=== PATIENT | female | born 1930 | race Caucasian/White ===

== ENCOUNTER 2017-08-10 01:14 | Emergency (ER) | payer OTHER, BC ==
[2017-08-10 01:38] VITALS: BP 210/67; PULSE 68; TEMP 98.2; BMI 28.3
--- NOTE | 2017-08-10 02:10 | PDOC ---
History of Present Illness - General History Source: Patient Exam Limitations: No Limitations - History of Present Illness Initial Comments: 08/10/17 03:17 Patient is an 86 year old female with a significant past medical history of HTN , Diabetes, non compliant with medications, who presents to the ED with complaints right hand weakness that began this afternoon. Patient reports experiencing an episode in ability to move her right hand while at home that lasted a few moments. Patient states she was at home when she went to grab an item when she noticed she was unable to move her right hand. She reports experiencing an episode of dizziness and lightheadedness after her episode of weakness prompting her son to take her to the ED for further evaluation. As per patient's son, patient has recently become non compliant with medication and stopped seeing her PCP. Denies chest pain, Sob. Denies nausea, vomiting. Denies headache, change in vision. Denies contact with sick individuals, out of state travelling. Denies any other symptoms. Allergies: None Social history: No smoking. No alcohol. No illicit drugs. Surgical history: None PMD: Not on staff. <Murali Tony - Last Filed: 08/10/17 03:17> <Archana Thomas - Last Filed: 08/10/17 04:46> - General Chief Complaint: Lightheaded Stated Complaint: DIZZINESS Past History <Murali Tony - Last Filed: 08/10/17 03:17> - Past Medical History Diabetes: Yes (type 2) HTN: Yes (recently dx started meds 09/21/14) - Suicide/Smoking/Psychosocial Hx Smoking History: Never smoked Have you smoked in the past 12 months: No Information on smoking cessation initiated: No Hx Alcohol Use: No Drug/Substance Use Hx: No Substance Use Type: None <Archana Thomas - Last Filed: 08/10/17 04:46> - Past Medical History Allergies/Adverse Reactions: Allergies Allergy/AdvReac Type Severity Reaction Status Date / Time No Known Allergies Allergy Verified 08/10/17 01:40 Home Medications: Ambulatory Orders Metformin HCl [Glucophage] 500 mg PO ONCE #30 tablet 08/10/17 Review of Systems - Review of Systems Able to Perform ROS?: Yes Comments:: 08/10/17 03:17 GENERAL/CONSTITUTIONAL: No fever or chills. No weakness. HEAD, EYES, EARS, NOSE AND THROAT: No change in vision. No ear pain or discharge. No sore throat. CARDIOVASCULAR: No chest pain or shortness of breath. RESPIRATORY: No cough, wheezing, or hemoptysis. GASTROINTESTINAL: No nausea, vomiting, diarrhea or constipation. GENITOURINARY: No dysuria, frequency, or change in urination. MUSCULOSKELETAL: +Right hand weakness. No joint or muscle swelling or pain. No neck or back pain. SKIN: No rash NEUROLOGIC: No headache, vertigo, loss of consciousness, or change in strength/ sensation. ENDOCRINE: No increased thirst. No abnormal weight change. HEMATOLOGIC/LYMPHATIC: No anemia, easy bleeding, or history of blood clots. ALLERGIC/IMMUNOLOGIC: No hives or skin allergy. All Other Systems: Reviewed and Negative <Murali Tony - Last Filed: 08/10/17 03:17> *Physical Exam - Vital Signs Last Vital Signs Temp Pulse Resp BP Pulse Ox 98.2 F 68 16 210/67 100 08/10/17 01:36 08/10/17 01:36 08/10/17 01:36 08/10/17 01:36 08/10/17 01:36 - Physical Exam Comments: 08/10/17 03:17 GENERAL: Awake, alert, and fully oriented, in no acute distress HEAD: No signs of trauma EYES: PERRLA, EOMI, sclera anicteric, conjunctiva clear ENT: Auricles normal inspection, hearing grossly normal, nares patent, oropharynx clear without exudates. Moist mucosa NECK: Normal ROM, supple, no lymphadenopathy, JVD, or masses LUNGS: Breath sounds equal, clear to auscultation bilaterally. No wheezes, and no crackles HEART: Regular rate and rhythm, normal S1 and S2, no murmurs, rubs or gallops ABDOMEN: Soft, nontender, normoactive bowel sounds. No guarding, no rebound. No masses EXTREMITIES: Normal range of motion, no edema. No clubbing or cyanosis. No cords, erythema, or tenderness NEUROLOGICAL: Cranial nerves II through XII grossly intact. Normal speech, normal gait SKIN: Warm, Dry, normal turgor, no rashes or lesions noted. <Murali Tony - Last Filed: 08/10/17 03:17> - Vital Signs Last Vital Signs Temp Pulse Resp BP Pulse Ox 98.2 F 68 16 210/67 100 08/10/17 01:36 08/10/17 01:36 08/10/17 01:36 08/10/17 01:36 08/10/17 01:36 <Archana Thomas - Last Filed: 08/10/17 04:46> ED Treatment Course - LABORATORY CBC & Chemistry Diagram: 08/10/17 02:13 08/10/17 02:34 - ADDITIONAL ORDERS Additional order review: Laboratory Results 08/10/17 02:34 PT with INR 11.90 H INR 1.05 08/10/17 02:13 RBC 5.05 MCV 80.6 MCHC 33.0 RDW 13.6 MPV 8.7 Neutrophils % 59.1 Lymphocytes % 28.3 Monocytes % 8.0 Eosinophils % 3.8 Basophils % 0.8 - Medications Given in the ED: ED Medications Discontinued Medications Generic Name Dose Route Start Last Admin Trade Name Freq PRN Reason Stop Dose Admin Valsartan 80 mg 08/10/17 02:12 08/10/17 02:42 Diovan - PO 08/10/17 02:13 80 mg ONCE ONE Administration <Murali Tony - Last Filed: 08/10/17 03:17> - LABORATORY CBC & Chemistry Diagram: 08/10/17 02:13 08/10/17 02:34 <Archana Thomas - Last Filed: 08/10/17 04:46> Medical Decision Making - Medical Decision Making 08/10/17 04:44 PT IS REFUSING TO STAY. SHE FEELS BETTER AND HER BP IS DOWN AND HER HEAD CT HAS NO ACUTE FINDINGS. LABS ARE NORMAL AND SHE WILL BE DISCHARGED AND REFERRED TO PMD'S: [facility]. PT WAS ALSO PRESCRIBED DIOVAN AND GLUCOPHAGE. SHE AND HER SON HAVE BEEN ASKED TO ELECTRIC BLANKET P[employer]ER THE MEDS. <Archana Thomas - Last Filed: 08/10/17 04:46> *DC/Admit/Observation/Transfer - Attestations Scribe Attestion: 08/10/17 03:17 Documentation prepared by Murali Tony, acting as medical physicist for Archana Thomas MD/. <Murali Tony - Last Filed: 08/10/17 03:17> - Discharge Dispostion Admit: No <Archana Thomas - Last Filed: 08/10/17 04:46> Diagnosis at time of Disposition: Hypertensive urgency, Hand numbness - Discharge Dispostion Disposition: HOME Condition at time of disposition: Improved - Prescriptions Prescriptions: Metformin HCl [Glucophage] 500 mg PO ONCE #30 tablet - Referrals Referrals: Tyshawn Santos MD [Staff Physician] - Lima Santos [Staff Physician] - Woody Arias MD [Staff Physician] - - Patient Instructions Printed Discharge Instructions: Malignant Hypertension, DI for Numbness/ tingling
[2017-08-10] MEDS ORDERED: VALSARTAN 80 MG TABLET (UD) PO ONE (02:12)
[2017-08-10] MEDS ORDERED: VALSARTAN 80 MG TABLET (UD) ONE (02:40)
[2017-08-10 02:41] LABS: BASO % 0.8 % (0-2.0); EOS % 3.8 % (0-4.5); HEMATOCRIT 40.7 % (32.4-45.2); HEMOGLOBIN 13.4 GM/dL (10.7-15.3); LYMPH % 28.3 % (8-40); MCH 26.6 pg (25.7-33.7); MEAN CELL VOLUME 80.6 fl (80-96); MEAN PLT VOLUME 8.7 fl (7.5-11.1); NEUT % 59.1 % (42.8-82.8); PLATELET COUNT 216 K/MM3 (134-434); RBC 5.05 M/mm3 (3.60-5.2); RDW 13.6 % (11.6-15.6); WHITE BLOOD COUNT 8.4 K/mm3 (4.0-10.0)
[2017-08-10 03:06] LABS: INR 1.05 (0.82-1.09); PROTHROMBIN TIME (PATIENT) 11.9 SEC (9.98-11.88)
[2017-08-10 03:17] LABS: ALBUMIN 3.8 g/dl (3.4-5.0); ANION GAP 10 (8-16); BILIRUBIN,TOTAL 0.6 mg/dL (0.2-1.0); BLOOD UREA NITROGEN 10 mg/dL (7-18); CALCIUM 9.5 mg/dL (8.5-10.1); CHLORIDE 110 mmol/L (98-107); CO2 25 mmol/L (21-32); CREATININE 0.9 mg/dL (0.55-1.02); GLUCOSE,RANDOM 198 mg/dL (74-106); SGPT/ALT 21 U/L (12-78); SODIUM 145 mmol/L (136-145); TOT PROT 7.3 g/dl (6.4-8.2)
[2017-08-10 03:19] LABS: ALK PHOS 67 U/L (45-117)
[2017-08-10 03:25] LABS: POTASSIUM 4.5 mmol/L (3.5-5.1); SGOT/AST 17 U/L (15-37)
--- NOTE | 2017-08-10 11:39 | EKG ---
Test Reason : Blood Pressure : / mmHG Vent. Rate : 067 BPM Atrial Rate : 067 BPM P-R Int : 144 ms QRS Dur : 106 ms QT Int : 418 ms P-R-T Axes : 061 -49 000 degrees QTc Int : 441 ms POOR DATA QUALITY, INTERPRETATION MAY BE ADVERSELY AFFECTED NORMAL SINUS RHYTHM INCOMPLETE RIGHT BUNDLE BRANCH BLOCK LEFT ANTERIOR FASCICULAR BLOCK MODERATE VOLTAGE CRITERIA FOR LVH, MAY BE NORMAL VARIANT NONSPECIFIC ST AND T WAVE ABNORMALITY ABNORMAL ECG WHEN COMPARED WITH ECG OF 19-APR-2016 13:17, NONSPECIFIC T WAVE ABNORMALITY NOW EVIDENT IN LATERAL LEADS Confirmed by MD WADE, TIM ([id number]) on 08/10/2017 11:39:12 AM Referred By: Confirmed By:TIM OLVERA MD
== END 2017-08-10 04:44 | disposition home or self-care (01) ==
LOC: JER 01:14
DX: I16.0 Hypertensive urgency (principal); E11.9 Type 2 diabetes mellitus without complications; Z79.84 Long term (current) use of oral hypoglycemic drugs; Z91.14 Patient's other noncompliance with medication regimen
CPT/HCPCS: 36415; 70450-TC; 80053; 82550; 84484; 85025; 85610; 93005; 93010; 99281-25

== ENCOUNTER 2018-09-27 07:18 | Inpatient (IN) | payer OTHER, BC ==
[2018-09-27 07:33] VITALS: BMI 26.5
--- NOTE | 2018-09-27 07:55 | PDOC ---
History of Present Illness - General Chief Complaint: Weakness Stated Complaint: WEAKNESS Time Seen by Provider: 09/27/18 07:32 - History of Present Illness Initial Comments: 09/27/18 07:50 The patient is an 87 year old female with a significant reported PMH of HTN, NIDDM who presents to our ED c/o acute onset of weakness and lightheadedness. States she woke up around 7 a.m. and felt generally weak. Patient got out of bed and got dressed and states her legs felt rubbery and she felt lightheaded falling on the her L side. Denies any head trauma or LOC. Was able to pull herself onto a chair and call her daughter who encouraged her to call 911. Currently c/o of weak lower extremities. States she had a similar episode previously (cannot recall when) and at that time the symptoms resolved within 20 minutes. States she stopped taking all of her medications 6 months previous because she is depressed. Denies any active suicidal ideations or plans, no firearms in the home. The patient denies headache, blurry vision, numbness/tingling, chest pain, shortness of breath. NKDA Surgical: denies Social: denies toxic habits PMD: Dr. Arias As per EMR patient evaluated in our ED in 2018 for R hand weakness as well as dizziness and lightheadedness. At that time symptoms resolved and patient was discharged home. Past History - Past Medical History Allergies/Adverse Reactions: Allergies Allergy/AdvReac Type Severity Reaction Status Date / Time No Known Allergies Allergy Verified 09/27/18 07:33 Home Medications: Ambulatory Orders Amlodipine Besylate 10 mg PO DAILY 09/27/18 Metformin HCl [Glucophage] 500 mg PO DAILY 09/27/18 Olmesartan Medoxomil 40 mg PO DAILY 09/27/18 Sertraline HCl 25 mg PO DAILY 09/27/18 COPD: No Diabetes: Yes (type 2) HTN: Yes (recently dx started meds 09/21/14) Other medical history: HUSLIA - Suicide/Smoking/Psychosocial Hx Smoking History: Never smoked Have you smoked in the past 12 months: No Hx Alcohol Use: No Drug/Substance Use Hx: No Substance Use Type: None Review of Systems - Review of Systems Constitutional: Yes: Weakness. No: Chills, Fever HEENTM: No: Recent change in vision Respiratory: No: Cough, Shortness of Breath, Stridor, Wheezing Cardiac (ROS): Yes: Lightheadedness. No: Chest Pain, Syncope ABD/GI: No: Constipated, Diarrhea, Nausea, Vomiting : No: Burning, Dysuria *Physical Exam - Vital Signs Last Vital Signs Temp Pulse Resp BP Pulse Ox 97.9 F 66 18 195/64 H 100 09/27/18 07:29 09/27/18 07:29 09/27/18 07:29 09/27/18 07:29 09/27/18 07:29 - Physical Exam Comments: 09/27/18 08:59 VS in triage reviewed Awake, alert, disheveled, smells of urine Pelvis stable, moves all 4 extremities S1,S2 CLTA B/L 2+ DP pulses B/L Moderate Sedation - Procedure Monitoring Vital Signs: Procedure Monitoring Vital Signs Temperature 97.9 F 09/27/18 07:29 Pulse Rate 66 09/27/18 07:29 Respiratory Rate 18 09/27/18 07:29 Blood Pressure 195/64 H 09/27/18 07:29 O2 Sat by Pulse Oximetry (%) 100 09/27/18 07:29 Heart Score/ECG Review - ECG Impressions Comment:: 09/27/18 09:27 EKG shows NSR HR 60, LAD with RBB, w/c EKG dated ED Treatment Course - LABORATORY CBC & Chemistry Diagram: 09/27/18 08:11 09/27/18 08:11 Medical Decision Making - Medical Decision Making 09/27/18 07:55 87 year old female with acute onset of weakness s/p fall. Hypertensive (195/64 ) @ triage. Repeat BP 200/68 @ bedside. Broad differential including cardiac, infectious, neurologic. Will obtain Head CT, EKG, Troponin, FS as well as basic labs, Mg. Will closely monitor BP -medication if remains hypertensive Reassess. 09/27/18 08:58 My read of Head CT shows no ischemia/bleed 09/27/18 09:20 EKG shows no acute ischemic changes from EKG dated 08/10/17 as documented in EKG section of EMR 09/27/18 09:26 Patient reassessed @ bedside Remains hypertensive (200's/70's) Continues to c/o weakness, states she feels alone, and no one cares for her; wishes to be , continues to deny active suicidal plans 09/27/18 10:30 CBC unremarkable 09/27/18 10:37 Radiology read - CT negative 09/27/18 11:02 Called lab - unable to locate CMP; will redraw 09/27/18 11:06 Called received from Lab, CMP located; 09/27/18 11:15 Patient ambulatory w/attending physician 09/27/18 11:37 BS 305 (likely 2/2 to DM medication non-adherence) CMP unremarkable Troponin pending Clonidine patch for 7 days - strict counseling for importance of follow-up with PMD for HTN control 09/27/18 12:23 Patient requesting D/C - ambulatory without assistance around unit Call placed to laboratory - UA results pending 09/27/18 12:25 UA shows 2+ leukocyte esterase, 1+ blood, 32 WBC, will give Ceftriaxone 09/27/18 12:36 Troponin indeterminate Patient requires admission for serial troponin to r/o ischemic demand vs ACS. Attending discussed case w/hospitalist medicine service; counseled patient and family on plan of care Clinical Impression: Troponin leak; UTI *DC/Admit/Observation/Transfer Diagnosis at time of Disposition: Weakness - Discharge Dispostion Disposition: HOME Condition at time of disposition: Good Decision to Admit order: No - Referrals - Patient Instructions - Post Discharge Activity
[2018-09-27 09:14] LABS: BASO % 0.8 % (0-2.0); EOS % 2.9 % (0-4.5); HEMATOCRIT 38.9 % (32.4-45.2); HEMOGLOBIN 13.5 GM/dL (10.7-15.3); LYMPH % 26.3 % (8-40); MCH 27.6 pg (25.7-33.7); MCHC 34.6 g/dl (32.0-36.0); MEAN CELL VOLUME 79.9 fl (80-96); MEAN PLT VOLUME 8.7 fl (7.5-11.1); MONO % 7.2 % (3.8-10.2); NEUT % 62.8 % (42.8-82.8); PLATELET COUNT 178 K/MM3 (134-434); RBC 4.87 M/mm3 (3.60-5.2); RDW 13.4 % (11.6-15.6); WHITE BLOOD COUNT 6.4 K/mm3 (4.0-10.0)
--- NOTE | 2018-09-27 10:10 | PDOC ---
Attending Attestation - HPI HPI: 09/27/18 10:56 The patient is a 87 year old female with a past medical history of HTN and diabetes here today for evaluation of lightheadedness. The patient reports that for the past 2 days every time she stands up she feels lightheaded and feels scared that she will fall. She also reports not taking her medication and not going to her PCP in the past 6 months due to depression. Patient denies headache. Denies fever, chills. Denies chest pain, shortness of breath. Denies nausea, vomiting, diarrhea, abdominal pain. Allergies: NKA PCP: Woody Arias - Physicial Exam PE: 09/27/18 10:56 Vitals: Triage vital signs reviewed General Appearance: No acute distress, well nourished, well developed Head: Atraumatic Chest Wall: Nontender Cardiac: Regular rate and rhythm, no murmurs, no rubs, no gallops Lungs: Clear to auscultation bilateral, good air movement bilaterally Abdomen: Soft, nondistended, normal bowel sounds, nontender to palpation Extremities: Full range of motion to all extremities, no cyanosis, clubbing, or edema Skin: Warm and dry, no rashes or lesions, no rash, no petechiae Neuro: +gait unsteady. AOX3; Cranial Nerves 2-12 grossly intact, Strength intact to all extremities, Sensation intact to all extremities Psych: Normal mood, normal affect - Medical Decision Making 09/27/18 10:56 Documentation prepared by REFUGIO Humphries, acting as electromedical equipment repairer for Deepak Laguna MD. The patient is a 87 year old female with a past medical history of HTN and diabetes here today for evaluation of lightheadedness. <Bud Nieves - Last Filed: 09/27/18 10:55> - Resident Resident Name: Abigail Izaguirre - ED Attending Attestation I have performed the following: I have examined & evaluated the patient, The case was reviewed & discussed with the resident, I agree w/resident's findings & plan, Exceptions are as noted - Medical Decision Making 87 years old with positional lightheadedness this morning Head CT within normal limits laboratory analysis notable for hyperglycemia which is understandable given the patient is been noncompliant with her medications as well as a troponin of indeterminant value Given patient's age noncompliance of medication we'll admit to hospital for telemetry monitoring, serial troponins and further management. <Deepak Laguna - Last Filed: 09/27/18 14:34>
[2018-09-27] MEDS ORDERED: cloNIDine-TTS 0.2 MG/24 HOURS PATCH.TDWK TD STA (10:39)
--- NOTE | 2018-09-27 11:01 | EKG ---
Test Reason : Blood Pressure : / mmHG Vent. Rate : 060 BPM Atrial Rate : 060 BPM P-R Int : 146 ms QRS Dur : 108 ms QT Int : 434 ms P-R-T Axes : 050 -40 -07 degrees QTc Int : 434 ms NORMAL SINUS RHYTHM POSSIBLE LEFT ATRIAL ENLARGEMENT LEFT AXIS DEVIATION PULMONARY DISEASE PATTERN INCOMPLETE RIGHT BUNDLE BRANCH BLOCK LEFT VENTRICULAR HYPERTROPHY WITH REPOLARIZATION ABNORMALITY ABNORMAL ECG WHEN COMPARED WITH ECG OF 10-AUG-2017 01:43, INVERTED T WAVES HAVE REPLACED NONSPECIFIC T WAVE ABNORMALITY IN LATERAL LEADS Confirmed by MD CARLEY, ERMELINDA ([id number]) on 09/27/2018 11:01:25 AM Referred By: Confirmed By:ERMELINDA HOWE MD
[2018-09-27 11:15] LABS: ALBUMIN 3.5 g/dl (3.4-5.0); ALK PHOS 83 U/L (45-117); ANION GAP 8 MMOL/L (8-16); BILIRUBIN,TOTAL 0.7 mg/dL (0.2-1); BLOOD UREA NITROGEN 10 mg/dL (7-18); CALCIUM 8.7 mg/dL (8.5-10.1); CHLORIDE 106 mmol/L (98-107); CO2 26 mmol/L (21-32); MAGNESIUM 1.8 mg/dL (1.8-2.4); POTASSIUM 3.7 mmol/L (3.5-5.1); SGOT/AST 11 U/L (15-37); SGPT/ALT 19 U/L (13-61); SODIUM 140 mmol/L (136-145)
[2018-09-27 11:26] LABS: GLUCOSE,RANDOM 305 mg/dL (74-106)
[2018-09-27 11:37] LABS: URINE APPEARANCE CLOUDY; URINE BILIRUBIN NEGATIVE (<2.0 mg/dL); URINE COLOR YELLOW; URINE GLUCOSE (UA) 3+ (NEGATIVE); URINE KETONE NEGATIVE (NEGATIVE); URINE LEUK ESTERASE 2+ (NEGATIVE); URINE NITRITE POSITIVE (NEGATIVE); URINE PROTEIN 1+ (NEGATIVE); URINE UROBILINOGEN NEGATIVE mg/dL (0.2-1.0)
[2018-09-27] MEDS ORDERED: ASPIRIN 81 MG CHEWABLE TABLETS PO ONE (12:15)
[2018-09-27 12:16] LABS: EPI CELLS FEW /HPF (FEW); URINE BACTERIA FEW /hpf (NONE SEEN); YEAST FEW
[2018-09-27] MEDS ORDERED: LORazepam 2 MG/ML SDV VIAL ONE (12:17)
[2018-09-27] MEDS ORDERED: ASPIRIN 81 MG CHEWABLE TABLETS ONE (12:23)
[2018-09-27] MEDS ORDERED: amLODIPine BESYLATE 5 MG TABLET (FP) PO ONE ×2 (12:31→14:02)
[2018-09-27] MEDS ORDERED: amLODIPine BESYLATE 5 MG TABLET (FP) ONE (12:35)
--- NOTE | 2018-09-27 13:58 | HP ---
CHIEF COMPLAINT: dizziness, fall PCP: Dr. Jaime HISTORY OF PRESENT ILLNESS: 87 yof with PMhx of NIDDM, HTN, diverticulosis, living alone, has been depressed for the last 1 year and stopped all her medications. She has not seen her PCP recently. Today when getting up had severe dizziness and fell on the floor to his side. Denies any head trauma, LOC. She got herself up with support but was feeling weak, so came to the ED. Does endorse long standing h/o positional dizziness. On ROS, states has URI like illness for the last week which is resolving, with runny nose, sore throat, cough with clear sputum and subjective warmth with no fevers. Also reports eating a lot of 'sweets', polyuria, dysuria, urinary frequency. Denies any fevers, chills, abdominal pain. Reports dry mouth and asking for water. Denies any chest pain, palpitations, dyspnea, exertional symptoms. Reports lives alone, has been feeling depressed lately but denies any SI/HI ("I can never do that to my kids" 12 point ROS done, neg except above. 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 [employer] 3 children in 60s, 1 son, 2 daughters Family History: Allergies No Known Allergies Allergy (Verified 09/27/18 07:33) HOME MEDICATIONS: Home Medications Medication Instructions Recorded Amlodipine Besylate 10 mg PO DAILY 09/27/18 Metformin HCl [Glucophage] 500 mg PO DAILY 09/27/18 Olmesartan Medoxomil 40 mg PO DAILY 09/27/18 Sertraline HCl 25 mg PO DAILY 09/27/18 REVIEW OF SYSTEMS CONSTITUTIONAL: Presentgeneralized weakness, Absent: fever, chills, diaphoresis, malaise, loss of appetite, weight change HEENT: Present nasal congestion, Absent: rhinorrhea, throat pain, throat swelling, difficulty swallowing, mouth swelling, ear pain, eye pain, visual changes CARDIOVASCULAR: Present: lightheadedness Absent: chest pain, syncope, palpitations, irregular heart rate, peripheral edema RESPIRATORY: Absent: cough, shortness of breath, dyspnea with exertion, orthopnea, wheezing, stridor, hemoptysis GASTROINTESTINAL: Absent: abdominal pain, abdominal distension, nausea, vomiting, diarrhea, constipation, melena, hematochezia GENITOURINARY: Present: polyuria, dysuria, Absent: hematuria, flank pain, genital pain MUSCULOSKELETAL: Absent: myalgia, arthralgia, joint swelling, back pain, neck pain SKIN: Absent: rash, itching, pallor HEMATOLOGIC/IMMUNOLOGIC: Absent: easy bleeding, easy bruising, lymphadenopathy, frequent infections ENDOCRINE: Absent: unexplained weight gain, unexplained weight loss, heat intolerance, cold intolerance NEUROLOGIC: Absent: headache, focal weakness or paresthesias, dizziness, unsteady gait, seizure, mental status changes, bladder or bowel incontinence PSYCHIATRIC: Present: depression Absent: anxiety, suicidal or homicidal ideation, hallucinations. PHYSICAL EXAMINATION Vital Signs - 24 hr 09/27/18 09/27/18 09/27/18 07:29 09:15 12:00 Temperature 97.9 F 98.1 F Pulse Rate 66 Pulse Rate [ 65 70 Right] Respiratory 18 14 18 Rate Blood Pressure 195/64 H Blood Pressure 202/86 H 140/92 [Right Arm] O2 Sat by Pulse 100 98 98 Oximetry (%) GENERAL: Awake, alert, and fully oriented, in no acute distress. HEAD: Normal with no signs of trauma. EYES: Pupils equal, round and reactive to light, extraocular movements intact, sclera anicteric, conjunctiva clear. No lid lag. EARS, NOSE, THROAT: Ears normal, nares patent, oropharynx clear without exudates. Moist mucous membranes. NECK: Normal range of motion, supple no JVD noted LUNGS: Breath sounds equal, clear to auscultation bilaterally. No wheezes, and no crackles. No accessory muscle use. HEART: Regular rate and rhythm, normal S1 and S2 ABDOMEN: Soft, nontender, not distended, normoactive bowel sounds, no guarding, no rebound, no masses. No CVA tenderness MUSCULOSKELETAL: Normal range of motion at all joints. No bony deformities or tenderness. No CVA tenderness. UPPER EXTREMITIES: 2+ pulses, warm, well-perfused. No cyanosis. No clubbing. No peripheral edema. LOWER EXTREMITIES: 2+ pulses, warm, well-perfused. No calf tenderness. No peripheral edema. NEUROLOGICAL: AAOx3, oriented to person, place, knows is september 2018 but thought date was , facial symmetry, tongue midline, power 5/5, no pronator drift, EOMI, PERRL, Cranial nerves II-XII intact. Normal speech. Normal gait. PSYCHIATRIC: Cooperative. Good eye contact. Appropriate mood and affect. SKIN: Warm, dry, normal turgor, no rashes or lesions noted, normal capillary refill. Laboratory Results - last 24 hr 09/27/18 09/27/18 09/27/18 08:11 08:11 10:57 WBC 6.4 RBC 4.87 Hgb 13.5 Hct 38.9 MCV 79.9 L MCH 27.6 MCHC 34.6 RDW 13.4 Plt Count 178 MPV 8.7 Absolute Neuts (auto) 4.0 Neutrophils % 62.8 Lymphocytes % 26.3 Monocytes % 7.2 Eosinophils % 2.9 Basophils % 0.8 Nucleated RBC % 0 Sodium 140 Potassium 3.7 Chloride 106 Carbon Dioxide 26 Anion Gap 8 BUN 10 Creatinine 1.0 Creat Clearance w eGFR 52.69 Random Glucose 305 H* Calcium 8.7 Magnesium 1.8 Total Bilirubin 0.7 AST 11 L ALT 19 Alkaline Phosphatase 83 Creatine Kinase 41 Troponin I 0.13 H Total Protein 7.0 Albumin 3.5 Urine Color Yellow Urine Appearance Cloudy Urine pH 5.0 Ur Specific [place] 1.016 Urine Protein 1+ H Urine Glucose (UA) 3+ H Urine Ketones Negative Urine Blood 1+ H Urine Nitrite Positive Urine Bilirubin Negative Urine Urobilinogen Negative Ur Leukocyte Esterase 2+ H Urine WBC (Auto) 32 Urine RBC (Auto) 6 Ur Epithelial Cells Few Urine Bacteria Few Urine Yeast Few CT brain results reviewed: 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 -Dizziness, Positional, suspect orthostatic compounded by hypovolumia (From osmotic diuresis from hyperglycemia)/Uncontrolled HTN -Hypertensive urgency, suspect from non compliance -Elevated troponin, suspect demand induced from above rather than ACS -Hyperglycemia, from non compliance -Lower uncomplicated UTI -Depression Plan: Resume home amlodipine/ARB. Hydralazine Prn for SBP .>180. Cardiology consult with Dr. Patel. Reviewed EKG, suggestive of LVH with strain pattern. However, will continue to trend troponin. (discussed with ED RN to send trop). Heparin if significant rise, EKG changes or new clinical concerns. Monitor closely for now. Check 2D echo. Place on ASA. Check lipid panel. Baseline HR 60s, hold off on beta renate. ISS, diabetic diet, check A1c. Ceftriaxone, follow up urine cultures. Gentle hydration overnight. resume sertraline. Psychology consult Dr. Abad [id number] lovenox PT eval. Code status: Full (patient unable to decide currently). Will defer till evaluated for depression. Dispo pending clinical improvement and disposition arrangements Plan discussed with patient, ED RN. Care co-ordinated with ED and cardiology Dr. Patel. Total admit time spent 65 min. Visit type - Emergency Visit Emergency Visit: Yes ED Registration Date: 09/27/18 Care time: The patient presented to the Emergency Department on the above date and was hospitalized for further evaluation of their emergent condition. - New Patient This patient is new to me today: Yes Date on this admission: 09/27/18 - Critical Care Critical Care patient: No
[2018-09-27] MEDS ORDERED: SODIUM CHLORIDE 1,000 ML IV SCH (14:15)
[2018-09-27] MEDS ORDERED: LOSARTAN POTASSIUM 50 MG TABLET (FP) ONE (15:05)
[2018-09-27] MEDS ORDERED: CEFTRIAXONE 1 GM/50 ML BAG ONE (15:05)
[2018-09-27] MEDS ORDERED: SERTRALINE HCL 50 MG TABLET (FP) ONE (15:05)
[2018-09-27] MEDS: CEFTRIAXONE 1 GM in DEXTROSE 5%-WATER - 50 ML IVPB SCH (15:07)
[2018-09-27] MEDS: LOSARTAN POTASSIUM 50 MG TABLET (FP) PO SCH (15:07)
[2018-09-27] MEDS: SERTRALINE HCL 25 MG TABLET (FP) PO SCH (15:07)
[2018-09-27 15:43] LABS: INR 1.13 (0.83-1.09); PROTHROMBIN TIME (PATIENT) 13.4 SEC (9.7-13.0)
[2018-09-27] MEDS: INSULIN SLIDING SCALE (NOVOLOG) 1 VIAL SQ SCH ×2 (16:48→21:45)
[2018-09-27] MEDS ORDERED: INSULIN (NOVOLOG) ASPART 100 UNITS/ML 10ML VIAL ONE (16:52)
[2018-09-28] MEDS: hydrALAZINE HCL 20 MG/ML VIAL IVPUSH PRN ×2 (05:23→18:11)
[2018-09-28] MEDS: INSULIN SLIDING SCALE (NOVOLOG) 1 VIAL SQ SCH ×4 (06:11→21:12)
[2018-09-28 07:00] LABS: BASO % 0.8 % (0-2.0); EOS % 3.3 % (0-4.5); HEMATOCRIT 38.1 % (32.4-45.2); HEMOGLOBIN 13.3 GM/dL (10.7-15.3); LYMPH % 26.9 % (8-40); MCH 28.1 pg (25.7-33.7); MCHC 34.9 g/dl (32.0-36.0); MEAN CELL VOLUME 80.7 fl (80-96); MEAN PLT VOLUME 8.7 fl (7.5-11.1); MONO % 7.1 % (3.8-10.2); NEUT % 61.9 % (42.8-82.8); PLATELET COUNT 170 K/MM3 (134-434); RBC 4.72 M/mm3 (3.60-5.2); RDW 13.6 % (11.6-15.6); WHITE BLOOD COUNT 6.7 K/mm3 (4.0-10.0)
[2018-09-28 07:28] LABS: ALBUMIN 3.2 g/dl (3.4-5.0); ALK PHOS 68 U/L (45-117); ANION GAP 10 MMOL/L (8-16); BILIRUBIN,TOTAL 0.8 mg/dL (0.2-1); BLOOD UREA NITROGEN 13 mg/dL (7-18); CALCIUM 8.6 mg/dL (8.5-10.1); CHLORIDE 109 mmol/L (98-107); CHOLESTEROL 191 mg/dL (50-200); CO2 22 mmol/L (21-32); CREATININE 0.9 mg/dL (0.55-1.3); GLUCOSE,RANDOM 247 mg/dL (74-106); HDL CHOLESTEROL 61 mg/dL (40-60); MAGNESIUM 1.9 mg/dL (1.8-2.4); PHOSPHOROUS 2.6 mg/dL (2.5-4.9); POTASSIUM 3.6 mmol/L (3.5-5.1); SGOT/AST 14 U/L (15-37); SGPT/ALT 16 U/L (13-61); SODIUM 140 mmol/L (136-145); TOT PROT 6.4 g/dl (6.4-8.2); TRIGLYCERIDES 119 mg/dL (0-150)
--- NOTE | 2018-09-28 08:43 | PN ---
Teaching Attending Note Name of Resident: Suzette Acosta ATTENDING PHYSICIAN STATEMENT I saw and evaluated the patient. I reviewed the resident's note and discussed the case with the resident. I agree with the resident's findings and plan as documented with exceptions below. SUBJECTIVE: Patient seen and examined. Anxious and wanting to leave. No chest pain, dizziness, dyspnea, headache or new concerns. Denies any urinary symptoms. No fevers or chills. OBJECTIVE: Vital Signs Period Temp Pulse Resp BP Sys/Powers Pulse Ox Last 24 Hr 97.1 F-98.5 F 65-82 14-20 138-203/67-92 97-100 Intake & Output 09/25/18 09/26/18 09/27/18 09/28/18 23:59 23:59 23:59 23:59 Intake Total 250 Balance 250 Weight 150 lb 9.6 oz general: sitting in bed in no acute distress Chest: CTAB, no rales or wheezing Abdomen:soft NT, ND, no CVA or suprapubic tenderness extremities: no edema Home Medications Medication Instructions Recorded Amlodipine Besylate 10 mg PO DAILY 09/27/18 Metformin HCl [Glucophage] 500 mg PO DAILY 09/27/18 Olmesartan Medoxomil 40 mg PO DAILY 09/27/18 Sertraline HCl 25 mg PO DAILY 09/27/18 Active Medications Amlodipine Besylate (Norvasc -) 10 mg PO DAILY REPLACED BY [facility] Aspirin (Ecotrin -) 81 mg PO DAILY REPLACED BY [facility] Enoxaparin Sodium (Lovenox -) 40 mg SQ DAILY REPLACED BY [facility] Hydralazine HCl (Apresoline Injection -) 10 mg IVPUSH Q6H PRN PRN Reason: HYPERTENSION Last Admin: 09/28/18 05:23 Dose: 10 mg Ceftriaxone Sodium 1 gm/ (Dextrose) 50 mls @ 100 mls/hr IVPB DAILY REPLACED BY [facility]; Protocol Last Admin: 09/27/18 15:07 Dose: 100 mls/hr Sodium Chloride (Normal Saline -) 1,000 mls @ 50 mls/hr IV ASDIR [facility] Stop: 09/28/18 14:07 Last Admin: 09/27/18 15:07 Dose: 50 mls/hr Insulin Aspart (Novolog Vial Sliding Scale -) 0 vial SQ ACHS [facility]; Protocol Last Admin: 09/28/18 06:11 Dose: Not Given Losartan Potassium (Cozaar -) 100 mg PO DAILY REPLACED BY [facility] Last Admin: 09/27/18 15:07 Dose: 100 mg Sertraline HCl (Zoloft -) 25 mg PO DAILY REPLACED BY [facility] Last Admin: 09/27/18 15:07 Dose: 25 mg Laboratory Results - last 24 hr 09/27/18 09/27/18 09/27/18 08:11 08:11 10:57 WBC 6.4 RBC 4.87 Hgb 13.5 Hct 38.9 MCV 79.9 L MCH 27.6 MCHC 34.6 RDW 13.4 Plt Count 178 MPV 8.7 Absolute Neuts (auto) 4.0 Neutrophils % 62.8 Lymphocytes % 26.3 Monocytes % 7.2 Eosinophils % 2.9 Basophils % 0.8 Nucleated RBC % 0 PT with INR INR Sodium 140 Potassium 3.7 Chloride 106 Carbon Dioxide 26 Anion Gap 8 BUN 10 Creatinine 1.0 Creat Clearance w eGFR 52.69 POC Glucometer Random Glucose 305 H* Hemoglobin A1c % Calcium 8.7 Phosphorus Magnesium 1.8 Total Bilirubin 0.7 AST 11 L ALT 19 Alkaline Phosphatase 83 Creatine Kinase 41 Troponin I 0.13 H Total Protein 7.0 Albumin 3.5 Triglycerides Cholesterol Total LDL Cholesterol HDL Cholesterol Urine Color Yellow Urine Appearance Cloudy Urine pH 5.0 Ur Specific [place] 1.016 Urine Protein 1+ H Urine Glucose (UA) 3+ H Urine Ketones Negative Urine Blood 1+ H Urine Nitrite Positive Urine Bilirubin Negative Urine Urobilinogen Negative Ur Leukocyte Esterase 2+ H Urine WBC (Auto) 32 Urine RBC (Auto) 6 Ur Epithelial Cells Few Urine Bacteria Few Urine Yeast Few 09/27/18 09/27/18 09/27/18 15:00 15:00 16:44 WBC RBC Hgb Hct MCV MCH MCHC RDW Plt Count MPV Absolute Neuts (auto) Neutrophils % Lymphocytes % Monocytes % Eosinophils % Basophils % Nucleated RBC % PT with INR 13.40 H INR 1.13 H Sodium Potassium Chloride Carbon Dioxide Anion Gap BUN Creatinine Creat Clearance w eGFR POC Glucometer 255 Random Glucose Hemoglobin A1c % Calcium Phosphorus Magnesium Total Bilirubin AST ALT Alkaline Phosphatase Creatine Kinase 41 Troponin I 0.13 H Total Protein Albumin Triglycerides Cholesterol Total LDL Cholesterol HDL Cholesterol Urine Color Urine Appearance Urine pH Ur Specific [place] Urine Protein Urine Glucose (UA) Urine Ketones Urine Blood Urine Nitrite Urine Bilirubin Urine Urobilinogen Ur Leukocyte Esterase Urine WBC (Auto) Urine RBC (Auto) Ur Epithelial Cells Urine Bacteria Urine Yeast 09/27/18 09/27/18 09/28/18 20:15 21:39 02:00 WBC RBC Hgb Hct MCV MCH MCHC RDW Plt Count MPV Absolute Neuts (auto) Neutrophils % Lymphocytes % Monocytes % Eosinophils % Basophils % Nucleated RBC % PT with INR INR Sodium Potassium Chloride Carbon Dioxide Anion Gap BUN Creatinine Creat Clearance w eGFR POC Glucometer 241 Random Glucose Hemoglobin A1c % Calcium Phosphorus Magnesium Total Bilirubin AST ALT Alkaline Phosphatase Creatine Kinase 55 Troponin I 0.13 H 0.14 H Total Protein Albumin Triglycerides Cholesterol Total LDL Cholesterol HDL Cholesterol Urine Color Urine Appearance Urine pH Ur Specific [place] Urine Protein Urine Glucose (UA) Urine Ketones Urine Blood Urine Nitrite Urine Bilirubin Urine Urobilinogen Ur Leukocyte Esterase Urine WBC (Auto) Urine RBC (Auto) Ur Epithelial Cells Urine Bacteria Urine Yeast 09/28/18 09/28/18 09/28/18 05:15 06:00 06:00 WBC 6.7 RBC 4.72 Hgb 13.3 Hct 38.1 MCV 80.7 MCH 28.1 MCHC 34.9 RDW 13.6 Plt Count 170 MPV 8.7 Absolute Neuts (auto) 4.2 Neutrophils % 61.9 Lymphocytes % 26.9 Monocytes % 7.1 Eosinophils % 3.3 Basophils % 0.8 Nucleated RBC % 0 PT with INR INR Sodium 140 Potassium 3.6 Chloride 109 H Carbon Dioxide 22 Anion Gap 10 BUN 13 Creatinine 0.9 Creat Clearance w eGFR 59.51 POC Glucometer 208 Random Glucose 247 H Hemoglobin A1c % Calcium 8.6 Phosphorus 2.6 Magnesium 1.9 Total Bilirubin 0.8 AST 14 L ALT 16 Alkaline Phosphatase 68 Creatine Kinase Troponin I 0.14 H Total Protein 6.4 Albumin 3.2 L Triglycerides 119 Cholesterol 191 Total LDL Cholesterol 111 H HDL Cholesterol 61 H Urine Color Urine Appearance Urine pH Ur Specific [place] Urine Protein Urine Glucose (UA) Urine Ketones Urine Blood Urine Nitrite Urine Bilirubin Urine Urobilinogen Ur Leukocyte Esterase Urine WBC (Auto) Urine RBC (Auto) Ur Epithelial Cells Urine Bacteria Urine Yeast 09/28/18 06:00 WBC RBC Hgb Hct MCV MCH MCHC RDW Plt Count MPV Absolute Neuts (auto) Neutrophils % Lymphocytes % Monocytes % Eosinophils % Basophils % Nucleated RBC % PT with INR INR Sodium Potassium Chloride Carbon Dioxide Anion Gap BUN Creatinine Creat Clearance w eGFR POC Glucometer Random Glucose Hemoglobin A1c % 10.6 H Calcium Phosphorus Magnesium Total Bilirubin AST ALT Alkaline Phosphatase Creatine Kinase Troponin I Total Protein Albumin Triglycerides Cholesterol Total LDL Cholesterol HDL Cholesterol Urine Color Urine Appearance Urine pH Ur Specific [place] Urine Protein Urine Glucose (UA) Urine Ketones Urine Blood Urine Nitrite Urine Bilirubin Urine Urobilinogen Ur Leukocyte Esterase Urine WBC (Auto) Urine RBC (Auto) Ur Epithelial Cells Urine Bacteria Urine Yeast CXR results reviewed Telemetry: NSR, occasional HR 100s, no concerning events ASSESSMENT AND PLAN: 87 yof with PMhx of NIDDM, HTN, diverticulosis, depression, not taking her meds for a year admitted with dizzinesss/fall, hypertensive urgency,elevated troponin , hyperglycemia and UTI. -Dizziness, Positional, suspect orthostatic compounded by hypovolumia (From osmotic diuresis from hyperglycemia)/Uncontrolled HTN -Hypertensive urgency, suspect from non compliance -Elevated troponin, suspect demand induced from above rather than ACS -Hyperglycemia, from non compliance -Lower uncomplicated UTI -Depression Plan: BP improved. Continue amlodipine/ARB. Hydralazine Prn for SBP .>180. Baseline HR 60s in the ED, hold off on beta renate. trop flat. Follow up 2D echo and cardiology input Continue ASA.Lipid panel noted. A1c >10, ISS, diabetic diet and education. Ideally should be on insulin but given compliance, follow up and self- administration concerns, will start glimepiride 1 mg daily. resume metformin if no further cardiac intervention planned. Ceftriaxone day 2, follow up urine cultures. D/c IVF. Continue sertraline, psychology input Dr. Abad PT eval [id number] lovenox Dispo planning in 24hours if continues to improve an disposition arranged.
[2018-09-28] MEDS ORDERED: cefTRIAXone SODIUM 1 GM VIAL ONE (08:48)
[2018-09-28] MEDS ORDERED: DEXTROSE 5%-WATER - 50 ML IVPB ONE (08:48)
[2018-09-28] MEDS ORDERED: GLIMEPIRIDE 1 MG TABLET (FP) PO ONE (08:48)
--- NOTE | 2018-09-28 10:21 | CON.CARD ---
Consult Consult Specialty:: cardio - History of Present Illness Chief Complaint: dizzy History of Present Illness: 87 F here with dizziness resulting in fall. Pt came in with dizziness, fell to floor. she reported not being able to feel her legs to dtr after this event had occurred (called her on phone). she denies other neuro sx's. no LOC. denies cp, palpitations, sob admitted non-compliance with meds and no PMD followup for ? 1 yr or more. Found to have BP 190s-200 in ER. And A1c 10 PMH: HTN DM - Past Medical History ...: No - Alcohol/Substance Use Hx Alcohol Use: No - Smoking History Smoking history: Never smoked Have you smoked in the past 12 months: No Home Medications - Allergies Allergies/Adverse Reactions: Allergies Allergy/AdvReac Type Severity Reaction Status Date / Time No Known Allergies Allergy Verified 09/27/18 07:33 - Home Medications Home Medications: Ambulatory Orders Amlodipine Besylate 10 mg PO DAILY 09/27/18 Metformin HCl [Glucophage] 500 mg PO DAILY 09/27/18 Olmesartan Medoxomil 40 mg PO DAILY 09/27/18 Sertraline HCl 25 mg PO DAILY 09/27/18 Family Disease History - Family Disease History Family History: Denies (no known cmp) Review of Systems - Review of Systems Constitutional: denies: Chills, Fever Eyes: denies: Eye Pain HENT: denies: Nasal Congestion Neck: denies: Stiffness Cardiovascular: denies: Palpitations Respiratory: denies: Orthopnea, PND Gastrointestinal: denies: Diarrhea, Rectal Bleeding Genitourinary: denies: Burning, Hematuria Musculoskeletal: denies: Muscle Pain Integumentary: denies: Rash Neurological: denies: Change in Speech, Seizure, Syncope Endocrine: denies: Excessive Sweating Hematology/Lymphatic: denies: Excessive Bleeding Vital Signs: Vital Signs Temperature 98.0 F 09/28/18 05:23 Pulse Rate 82 09/28/18 06:49 Respiratory Rate 18 09/28/18 05:23 Blood Pressure 159/78 09/28/18 06:49 O2 Sat by Pulse Oximetry (%) 97 09/27/18 21:00 Constitutional: Yes: Well Nourished, No Distress Eyes: No: Sclera Icterus HENT: No: Nasal Congestion Neck: No: Decreased ROM Respiratory: Yes: CTA Bilaterally. No: Accessory Muscle Use, Rales, Wheezes Gastrointestinal: Yes: Normal Bowel Sounds. No: Distention, Hepatomegaly, Palpable Mass, Tenderness Cardiovascular: Yes: Regular Rate and Rhythm JVD: No Carotid Bruit: No PMI: Non-Displaced Heart Sounds: Yes: S1, S2. No: Gallop Murmur: Yes: Systolic Murmur (3/6 early [employer]LE[employer] lusb). No: Diastolic Murmur Musculoskeletal: Yes: Other (No kyphosis) Extremities: No: Cold, Cyanosis Edema: No Peripheral Pulses: 2+ Left Carotid, 2+ Right Carotid, 2+ Left Doralis Pedis, 2+ Right Dorsalis Pedis Integumentary: No: Jaundice Neurological: Yes: Alert, Oriented (x3) Psychiatric: No: Agitated - Other Data Labs, Other Data: CBC, BMP 09/28/18 06:00 09/28/18 06:00 INR, PTT INR 1.13 (0.83-1.09) H 09/27/18 15:00 Troponin, BNP 09/27/18 09/27/18 09/27/18 08:11 15:00 20:15 Troponin I 0.13 H 0.13 H 0.13 H 09/28/18 09/28/18 02:00 06:00 Troponin I 0.14 H 0.14 H Troponin, BNP 09/27/18 09/27/18 09/27/18 08:11 15:00 20:15 Troponin I 0.13 H 0.13 H 0.13 H 09/28/18 09/28/18 02:00 06:00 Troponin I 0.14 H 0.14 H Laboratory Tests 09/27/18 09/27/18 09/27/18 08:11 15:00 20:15 WBC Hgb Plt Count Sodium Potassium Carbon Dioxide BUN Creatinine Hemoglobin A1c % AST ALT Troponin I 0.13 H 0.13 H 0.13 H Triglycerides Cholesterol Total LDL Cholesterol HDL Cholesterol 09/28/18 09/28/18 09/28/18 02:00 06:00 06:00 WBC 6.7 Hgb 13.3 Plt Count 170 Sodium 140 Potassium 3.6 Carbon Dioxide 22 BUN 13 Creatinine 0.9 Hemoglobin A1c % AST 14 L ALT 16 Troponin I 0.14 H 0.14 H Triglycerides 119 Cholesterol 191 Total LDL Cholesterol 111 H HDL Cholesterol 61 H 03/18/19 06:00 WBC Hgb Plt Count Sodium Potassium Carbon Dioxide BUN Creatinine Hemoglobin A1c % 10.6 H AST ALT Troponin I Triglycerides Cholesterol Total LDL Cholesterol HDL Cholesterol Assessment/Plan ECG: NSR, LVH with nonspecific ST-Ts likely assctd with LVH--slightly more prominent vs prior 07/2017 CXR: clear lungs/pleura. cardiomegaly dizziness, bilateral leg numbness. -suspect related to uncontrolled BP, with acute on chronic elevation at home -BP treatment as below -CT head no acute pathology -observe sx's--defer further w/u (if indicated) to hospitalist HTN with hypertensive urgency: -apparently non-compliant with BP meds (? MD followup) for a while at home -BPs highly variable here, at times to 200 systolic. mostly reasonable control at present time. -BP currently 150s. if remains 140s-160s and she is asymptomatic, she is ok for discharge from [facility] p.o.v. and should f/u with us and dr gomez for bp monitoring within 1 week. -d/w'd pt in presence of dtr that BP control is important, despite her feeling that she has lived her life and is prepared to , b/c uncontrolled BP may lead to stroke other other events that leave her alive for a long time but with poor qual of life--pt verbalized understanding of the discussion and agreement. elevated troponin, abnormal ECG: -troponin indeterminate range, flat trend (0.1 x 5)--not consistent with acute ischemia/ACS -likely chronic finding related to LVH -ECG c/w LVH with associated repol abn -f/u echo (done this AM) -stress test not indicated in this setting, given absence of sx's suspicious for angina--outpt cardio f/u rec'd DM: -A1c not controlled -per hospitalist
[2018-09-28] MEDS: CEFTRIAXONE 1 GM in DEXTROSE 5%-WATER - 50 ML IVPB SCH (10:39)
[2018-09-28] MEDS: ENOXAPARIN NA (PORCINE) 40 MG/0.4 ML DISP.SYRIN SQ SCH (10:39)
[2018-09-28] MEDS: LOSARTAN POTASSIUM 50 MG TABLET (FP) PO SCH (11:23)
[2018-09-28] MEDS: amLODIPine BESYLATE 10 MG TABLET (FP) PO SCH (11:23)
[2018-09-28] MEDS: SERTRALINE HCL 25 MG TABLET (FP) PO SCH (11:23)
[2018-09-28] MEDS: ASPIRIN COATED 81 MG TABLET.EC PO SCH (11:33)
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
--- NOTE | 2018-09-28 15:49 | PN ---
Physical Exam: SUBJECTIVE: Patient seen and examined sitting up in chair fully dressed wanting to go home. OBJECTIVE: Vital Signs Period Temp Pulse Resp BP Sys/Powers Pulse Ox Last 24 Hr 97.1 F-98.5 F 67-82 18-20 138-203/70-90 97-100 GENERAL: AAO; anxious wanting to go home LUNGS: Breath sounds equal, clear to auscultation bilaterally, no wheezes, no crackles, no accessory muscle use. HEART: Regular rate and rhythm, S1, S2 without murmur, rub or gallop. ABDOMEN: Soft, nontender, nondistended, normoactive bowel sounds, no guarding, no rebound, no hepatosplenomegaly, no masses. EXTREMITIES: 2+ pulses, warm, well-perfused, no edema. NEUROLOGICAL: Cranial nerves II through XII grossly intact. Normal speech, gait not observed. PSYCH: agitated; anxious Laboratory Results - last 24 hr 09/27/18 09/27/18 09/27/18 16:44 20:15 21:39 WBC RBC Hgb Hct MCV MCH MCHC RDW Plt Count MPV Absolute Neuts (auto) Neutrophils % Lymphocytes % Monocytes % Eosinophils % Basophils % Nucleated RBC % Sodium Potassium Chloride Carbon Dioxide Anion Gap BUN Creatinine Creat Clearance w eGFR POC Glucometer 255 241 Random Glucose Hemoglobin A1c % Calcium Phosphorus Magnesium Total Bilirubin AST ALT Alkaline Phosphatase Creatine Kinase 55 Troponin I 0.13 H Total Protein Albumin Triglycerides Cholesterol Total LDL Cholesterol HDL Cholesterol 09/28/18 09/28/18 09/28/18 02:00 05:15 06:00 WBC 6.7 RBC 4.72 Hgb 13.3 Hct 38.1 MCV 80.7 MCH 28.1 MCHC 34.9 RDW 13.6 Plt Count 170 MPV 8.7 Absolute Neuts (auto) 4.2 Neutrophils % 61.9 Lymphocytes % 26.9 Monocytes % 7.1 Eosinophils % 3.3 Basophils % 0.8 Nucleated RBC % 0 Sodium Potassium Chloride Carbon Dioxide Anion Gap BUN Creatinine Creat Clearance w eGFR POC Glucometer 208 Random Glucose Hemoglobin A1c % Calcium Phosphorus Magnesium Total Bilirubin AST ALT Alkaline Phosphatase Creatine Kinase Troponin I 0.14 H Total Protein Albumin Triglycerides Cholesterol Total LDL Cholesterol HDL Cholesterol 09/28/18 09/28/18 06:00 06:00 WBC RBC Hgb Hct MCV MCH MCHC RDW Plt Count MPV Absolute Neuts (auto) Neutrophils % Lymphocytes % Monocytes % Eosinophils % Basophils % Nucleated RBC % Sodium 140 Potassium 3.6 Chloride 109 H Carbon Dioxide 22 Anion Gap 10 BUN 13 Creatinine 0.9 Creat Clearance w eGFR 59.51 POC Glucometer Random Glucose 247 H Hemoglobin A1c % 10.6 H Calcium 8.6 Phosphorus 2.6 Magnesium 1.9 Total Bilirubin 0.8 AST 14 L ALT 16 Alkaline Phosphatase 68 Creatine Kinase Troponin I 0.14 H Total Protein 6.4 Albumin 3.2 L Triglycerides 119 Cholesterol 191 Total LDL Cholesterol 111 H HDL Cholesterol 61 H Active Medications Generic Name Dose Route Start Last Admin Trade Name Freq PRN Reason Stop Dose Admin Amlodipine Besylate 10 mg 09/28/18 10:00 09/28/18 11:23 Norvasc - PO 10 mg DAILY [facility] Administration Aspirin 81 mg 09/28/18 10:00 09/28/18 11:33 Ecotrin - PO 81 mg DAILY [facility] Administration Enoxaparin Sodium 40 mg 09/28/18 10:00 09/28/18 10:39 Lovenox - SQ Not Given DAILY [facility] Glimepiride 1 mg 09/29/18 07:00 Amaryl - PO DAILY@0700 [facility] Hydralazine HCl 10 mg 09/27/18 14:16 09/28/18 05:23 Apresoline Injection - IVPUSH 10 mg Q6H PRN Administration HYPERTENSION Ceftriaxone Sodium 1 gm/ 50 mls @ 100 mls/hr 09/27/18 14:15 09/28/18 10:39 Dextrose IVPB Not Given DAILY [facility] Protocol Insulin Aspart 0 vial 09/27/18 16:30 09/28/18 12:01 Novolog Vial Sliding Scale - SQ Not Given ACHS [facility] Protocol Losartan Potassium 100 mg 09/27/18 14:15 09/28/18 11:23 Cozaar - PO 100 mg DAILY [facility] Administration Sertraline HCl 25 mg 09/27/18 14:15 09/28/18 11:23 Zoloft - PO 25 mg DAILY [facility] Administration ASSESSMENT/PLAN: This is a 87 year old female with a history of DM, HTN, diverticulosis, non compliant with medications, depression, presented with after episode of dizziness and fall, found to have hypertensive urgency, UTI and elevated troponin. #Dizziness resolved; -etiology multipfactorial; s/p fall; with urinary infection, metabolic encephalopathy ;htn -head CT negative -echo pending -bp controlled; -PT eval #Hypertensive urgency : (non complaint with home meds) -still with elevated bp, improved; although has been agitated all day -continue losartan 100mg qd -cont norvasc 10mg qd -hydralizine IV prn #elevated troponin: -ACS unlikely; ml demand ischemia -echo pending #hyperglycemia: -hemoglobin a1c 10. -currently onSS -gliperamide 1m po daily #UTI: -cont ceftriaxone -f/u cultures #depression with suicidal ideation -on zoloft -1:1 -needs clearance from psychiatry dvt ppl: lovenox Visit type - Emergency Visit Emergency Visit: Yes ED Registration Date: 09/27/18 Care time: The patient presented to the Emergency Department on the above date and was hospitalized for further evaluation of their emergent condition. - New Patient This patient is new to me today: Yes Date on this admission: 09/28/18 - Critical Care Critical Care patient: No
--- NOTE | 2018-09-28 16:01 | ECHO ---
Name: RAUDEL ARTEAGA Exam:Adult Echocardiogram Study Date: 09/28/2018 07:52 AM Age: 87 yrs Reason For Study: HTN Height: 63 in Weight: 150 lb BSA: 1.7 m2 Procedure A complete two-dimensional transthoracic echocardiogram was performed (2D, M-mode, Doppler and color flow Doppler). Left Ventricle The left ventricle is normal in size. Left ventricular systolic function is normal. Ejection Fraction = >70%. Diastolic dysfunction, Grade II, consistent with elevated left atrial pressure. No regional wall kerri on abnormalities noted. Right Ventricle The right ventricle is normal size. The right ventricular systolic function is normal. Atria The left atrial size is normal. Right atrial size is normal. Mitral Valve There is moderate mitral annular calcification. There is no mitral regurgitation noted. Tricuspid Valve The tricuspid valve is normal in structure and function. No tricuspid regurgitation. Aortic Valve There is mild aortic valve thickening. Mild valvular aortic stenosis. The calculated aortic valve are a using the continuity equation is 1.4 cm2. Aortic mean pressure gradient= 26 mmHg. Dimensionless index (DI) is estimated 0.41. Mild to moderate aortic regurgitation. Pulmonic Valve The pulmonic valve is not well visualized. Great Vessels The aortic root is normal size. Pericardium/Pleura There is no pericardial effusion. Interpretation Summary The left ventricle is normal in size. Left ventricular systolic function is normal. No regional wall motion abnormalities noted. Ejection Fraction = >70%. Diastolic dysfunction, Grade II, consistent with elevated left atrial pressure. The right ventricular systolic function is normal. The left atrial size is normal. Right atrial size is normal. There is moderate mitral annular calcification. There is mild aortic valve thickening. Mild valvular aortic stenosis. The calculated aortic valve area using the continuity equation is 1.4 cm2. Aortic mean pressure gradient= 26 mmHg Dimensionless index (DI) is estimated 0.41 Mild to moderate aortic regurgitation. There is no pericardial effusion. Previous study is not available for comparison Shyam Paris MD 09/28/2018 04:01 PM
--- NOTE | 2018-09-28 16:54 | CON.PSY ---
Psychiatry Consult Chief Complaint: 89 year old female, DM, HTN and UTI. patient apparantly admitted for Cardiac monitring. patient wasnts to [facility]. Seen for capacity. NO Psych Illness. ? suicidal ideas?? Spoke to p[atients daughter who said my mother likes her life and independent. She misses my dad who 12 yrs ago. No Psych ILlness or History./ Symptoms: reports: Irritability, Anxiety - Previous Psychiatric Treatment Outpatient: None Inpatient: None - Previous Substance Abuse Treatment Outpatient: None Inpatient: None - Current Medications Current Medications: Active Medications Amlodipine Besylate (Norvasc -) 10 mg PO DAILY [facility] Last Admin: 09/28/18 11:23 Dose: 10 mg Aspirin (Ecotrin -) 81 mg PO DAILY [facility] Last Admin: 09/28/18 11:33 Dose: 81 mg Enoxaparin Sodium (Lovenox -) 40 mg SQ DAILY [facility] Last Admin: 09/28/18 10:39 Dose: Not Given Glimepiride (Amaryl -) 1 mg PO DAILY@0700 [facility] Hydralazine HCl (Apresoline Injection -) 10 mg IVPUSH Q6H PRN PRN Reason: HYPERTENSION Last Admin: 09/28/18 05:23 Dose: 10 mg Ceftriaxone Sodium 1 gm/ (Dextrose) 50 mls @ 100 mls/hr IVPB DAILY [facility]; Protocol Last Admin: 09/28/18 10:39 Dose: Not Given Insulin Aspart (Novolog Vial Sliding Scale -) 0 vial SQ ACHS [facility]; Protocol Last Admin: 09/28/18 12:01 Dose: Not Given Losartan Potassium (Cozaar -) 100 mg PO DAILY [facility] Last Admin: 09/28/18 11:23 Dose: 100 mg Sertraline HCl (Zoloft -) 25 mg PO DAILY [facility] Last Admin: 09/28/18 11:23 Dose: 25 mg - Allergies Allergies: Allergies Allergy/AdvReac Type Severity Reaction Status Date / Time No Known Allergies Allergy Verified 09/27/18 07:33 - Current Living Status Usual Living Arrangement: Alone - Current Mental Status Evaluation Appearance: Well Groomed Attitude: Cooperative - Affect Affect: Full Range - Mood Mood: Euthymic - Speech/Language Expressive: Coherent - Psychomotor Activity Psychomotor Activity: Hyperactive - Thought Process Thought Process: Intact - Thought Content Hallucinations: Absent Delusions: Absent - Self Perception Self Perception: No Impairment - Cognition Attention: Alert Orientation: Time Memory, Immediate Recall: Intact Memory, Short Term: 2/3 Memory, Remote with Promptin/3 - Concentration Serial Sevens Intact: No Simple Calculations Intact: Yes - Abstraction Proverb Interpretation: Intact Judgement: Intact - Insight Insight: Intact - Impulse Control Impulse Control: Minimally Impaired - Suicidal Ideation Suicidal Ideation: No - Homicidal Ideation Homicidal Ideation: No Assessment/Plan 1) Patient has the functional capacity to make decisions at this time. She can sign out AMA>
[2018-09-28] MEDS ORDERED: INSULIN SLIDING SCALE (NOVOLOG) 1 VIAL SQ ONE ×2 (17:36→21:02)
[2018-09-28] MEDS ORDERED: ALPRAZolam 0.25 MG TABLET PO ONE (18:59)
[2018-09-29] MEDS ORDERED: PT OWN MED DRAWER 7, Y5N ONE ×2 (06:20→12:59)
[2018-09-29] MEDS: INSULIN SLIDING SCALE (NOVOLOG) 1 VIAL SQ SCH ×2 (06:23→11:31)
[2018-09-29 06:57] LABS: ANION GAP 8 MMOL/L (8-16); BLOOD UREA NITROGEN 15 mg/dL (7-18); CALCIUM 8.6 mg/dL (8.5-10.1); CHLORIDE 109 mmol/L (98-107); CO2 23 mmol/L (21-32); CREATININE 0.8 mg/dL (0.55-1.3); GLUCOSE,RANDOM 209 mg/dL (74-106); MAGNESIUM 1.8 mg/dL (1.8-2.4); PHOSPHOROUS 3.6 mg/dL (2.5-4.9); POTASSIUM 3.4 mmol/L (3.5-5.1); SODIUM 140 mmol/L (136-145)
[2018-09-29] MEDS ORDERED: GLIMEPIRIDE 1 MG TABLET (FP) PO SCH (07:00)
[2018-09-29] MEDS ORDERED: cefTRIAXone SODIUM 1 GM VIAL ONE (09:58)
[2018-09-29] MEDS ORDERED: DEXTROSE 5%-WATER - 50 ML IVPB ONE (09:58)
[2018-09-29] MEDS: ASPIRIN COATED 81 MG TABLET.EC PO SCH (10:19)
[2018-09-29] MEDS: SERTRALINE HCL 25 MG TABLET (FP) PO SCH (10:19)
[2018-09-29] MEDS: amLODIPine BESYLATE 10 MG TABLET (FP) PO SCH (10:19)
[2018-09-29] MEDS: LOSARTAN POTASSIUM 50 MG TABLET (FP) PO SCH (10:19)
[2018-09-29] MEDS: CEFTRIAXONE 1 GM in DEXTROSE 5%-WATER - 50 ML IVPB SCH (10:19)
[2018-09-29] MEDS: ENOXAPARIN NA (PORCINE) 40 MG/0.4 ML DISP.SYRIN SQ SCH (10:19)
[2018-09-29] MEDS ORDERED: ALPRAZolam 0.25 MG TABLET PO PRN (10:45)
[2018-09-29] MEDS ORDERED: INSULIN SLIDING SCALE (NOVOLOG) 1 VIAL SQ ONE (11:07)
[2018-09-29] MEDS ORDERED: ERTAPENEM SODIUM 1 GM in SODIUM CHLORIDE 50 ML IVPB SCH (11:30)
--- NOTE | 2018-09-29 12:05 | PN ---
Progress Note (short form) - Note Progress Note: s:no chest pain, palps, dizziness, lightheadedness. feels depressed, wants to go home Current Medications Alprazolam (Xanax -) 0.5 mg PO Q12H PRN PRN Reason: ANXIETY Last Admin: 09/29/18 11:26 Dose: 0.5 mg Amlodipine Besylate (Norvasc -) 10 mg PO DAILY [facility] Last Admin: 09/29/18 10:19 Dose: 10 mg Aspirin (Ecotrin -) 81 mg PO DAILY [facility] Last Admin: 09/29/18 10:19 Dose: 81 mg Enoxaparin Sodium (Lovenox -) 40 mg SQ DAILY [facility] Last Admin: 09/29/18 10:19 Dose: 40 mg Glimepiride (Amaryl -) 1 mg PO DAILY@0700 [facility] Last Admin: 09/29/18 06:24 Dose: 1 mg Hydralazine HCl (Apresoline Injection -) 10 mg IVPUSH Q6H PRN PRN Reason: HYPERTENSION Last Admin: 09/28/18 18:11 Dose: 10 mg Ertapenem 1 gm/ Sodium (Chloride) 50 mls @ 100 mls/hr IVPB DAILY [facility] Stop: 09/30/18 11:29 Insulin Aspart (Novolog Vial Sliding Scale -) 0 vial SQ ACHS [facility]; Protocol Last Admin: 09/29/18 11:31 Dose: 2 units Losartan Potassium (Cozaar -) 100 mg PO DAILY [facility] Last Admin: 09/29/18 10:19 Dose: 100 mg Sertraline HCl (Zoloft -) 25 mg PO DAILY [facility] Last Admin: 09/29/18 10:19 Dose: 25 mg Vital Signs: Vital Signs Period Temp Pulse Resp BP Sys/Powers Pulse Ox Last 24 Hr 98.0 F-98.4 F 75-84 18-18 131-179/56-96 97 Constitutional: Yes: Well Nourished, No Distress Eyes: No: Sclera Icterus HENT: No: Nasal Congestion Neck: No: Decreased ROM Respiratory: Yes: CTA Bilaterally. No: Accessory Muscle Use, Rales, Wheezes Gastrointestinal: Yes: Normal Bowel Sounds. No: Distention, Hepatomegaly, Palpable Mass, Tenderness Cardiovascular: Yes: Regular Rate and Rhythm JVD: No Carotid Bruit: No PMI: Non-Displaced Heart Sounds: Yes: S1, S2. No: Gallop Murmur: Yes: Systolic Murmur (3/6 early SULEMAN lusb). No: Diastolic Murmur Musculoskeletal: Yes: Other (No kyphosis) Extremities: No: Cold, Cyanosis Edema: No Peripheral Pulses: 2+ Left Carotid, 2+ Right Carotid, 2+ Left Doralis Pedis, 2+ Right Dorsalis Pedis Integumentary: No: Jaundice Neurological: Yes: Alert, Oriented (x3) Psychiatric: No: Agitated Assessment/Plan ECG: NSR, LVH with nonspecific ST-Ts likely assctd with LVH--slightly more prominent vs prior 07/2017 CXR: clear lungs/pleura. cardiomegaly echo 09/2018 nl LV/RV function, grade II diastolic dysfunction, mod MAC, mild , mild to mod AR tele:refusing dizziness, bilateral leg numbness. -suspect related to uncontrolled BP, with acute on chronic elevation at home - also with UTI, on abx per primary -BP treatment as below -CT head no acute pathology -observe sx's--defer further w/u (if indicated) to hospitalist HTN with hypertensive urgency: -apparently non-compliant with BP meds (? MD followup) for a while at home -BPs highly variable here, at times to 200 systolic. mostly reasonable control at present time. -BP currently 150s. if remains 140s-160s and she is asymptomatic, she is ok for discharge from [facility] p.[facility]. and should f/u with us and dr gomez for bp monitoring within 1 week. -per Dr. Patel d/w'd pt in presence of dtr that BP control is important, despite her feeling that she has lived her life and is prepared to , b/c uncontrolled BP may lead to stroke other other events that leave her alive for a long time but with poor qual of life--pt verbalized understanding of the discussion and agreement. elevated troponin, abnormal ECG: -troponin indeterminate range, flat trend (0.1 x 5)--not consistent with acute ischemia/ACS -likely chronic finding related to LVH -ECG c/w LVH with associated repol abn - echo nl LV function -stress test not indicated in this setting, given absence of sx's suspicious for angina--outpt cardio f/u rec'd DM: -A1c not controlled -per hospitalist
[2018-09-29] MEDS ORDERED: POTASSIUM CHLORIDE TABS 20 MEQ TABLET.ER (FP) PO ONE (12:46)
--- NOTE | 2018-09-29 13:07 | PN ---
Physical Exam: SUBJECTIVE: Patient seen and examined, calmer today, no complaints, eager to go home. OBJECTIVE: Vital Signs Period Temp Pulse Resp BP Sys/Powers Pulse Ox Last 24 Hr 98.0 F-98.4 F 75-84 18-18 131-179/56-96 97 Intake & Output 09/26/18 09/27/18 09/28/18 09/29/18 23:59 23:59 23:59 23:59 Intake Total 250 170 Balance 250 170 Weight 150 lb 9.6 oz GENERAL: The patient is awake, alert, and fully oriented, in no acute distress. HEAD: Normal with no signs of trauma. EYES: PERRL, extraocular movements intact, sclera anicteric, conjunctiva clear. No ptosis. ENT: Ears normal, nares patent, oropharynx clear without exudates, moist mucous membranes. NECK: soft, supple, no JVD LUNGS: Breath sounds equal, clear to auscultation bilaterally, no wheezes, no crackles, no accessory muscle use. HEART: Regular rate and rhythm, S1, S2 ABDOMEN: Soft, nontender, nondistended, normoactive bowel sounds, no guarding, no rebound, EXTREMITIES: 2+ pulses, warm, well-perfused, no edema. NEUROLOGICAL: Cranial nerves II through XII grossly intact. Normal speech, gait not observed. PSYCH: Normal mood, normal affect. SKIN: Warm, dry, normal turgor, no rashes or lesions noted Laboratory Results - last 24 hr 09/28/18 09/28/18 09/29/18 16:28 21:09 05:10 Sodium Potassium Chloride Carbon Dioxide Anion Gap BUN Creatinine Creat Clearance w eGFR POC Glucometer 289 207 194 Random Glucose Calcium Phosphorus Magnesium 09/29/18 09/29/18 06:00 11:30 Sodium 140 Potassium 3.4 L Chloride 109 H Carbon Dioxide 23 Anion Gap 8 BUN 15 Creatinine 0.8 Creat Clearance w eGFR 68.17 POC Glucometer 178 Random Glucose 209 H Calcium 8.6 Phosphorus 3.6 Magnesium 1.8 Active Medications Generic Name Dose Route Start Last Admin Trade Name Freq PRN Reason Stop Dose Admin Alprazolam 0.5 mg 09/29/18 10:45 09/29/18 11:26 Xanax - PO 0.5 mg Q12H PRN Administration ANXIETY Amlodipine Besylate 10 mg 09/28/18 10:00 09/29/18 10:19 Norvasc - PO 10 mg DAILY [facility] Administration Aspirin 81 mg 09/28/18 10:00 09/29/18 10:19 Ecotrin - PO 81 mg DAILY [facility] Administration Enoxaparin Sodium 40 mg 09/28/18 10:00 09/29/18 10:19 Lovenox - SQ 40 mg DAILY [facility] Administration Glimepiride 1 mg 09/29/18 07:00 09/29/18 06:24 Amaryl - PO 1 mg DAILY@0700 [facility] Administration Hydralazine HCl 10 mg 09/27/18 14:16 09/28/18 18:11 Apresoline Injection - IVPUSH 10 mg Q6H PRN Administration HYPERTENSION Ertapenem 1 gm/ Sodium 50 mls @ 100 mls/hr 09/29/18 11:30 09/29/18 13:02 Chloride IVPB 09/30/18 11:29 100 mls/hr DAILY [facility] Administration Insulin Aspart 0 vial 09/27/18 16:30 09/29/18 11:31 Novolog Vial Sliding Scale - SQ 2 units ACHS [facility] Administration Protocol Losartan Potassium 100 mg 09/27/18 14:15 09/29/18 10:19 Cozaar - PO 100 mg DAILY [facility] Administration Sertraline HCl 25 mg 09/27/18 14:15 09/29/18 10:19 Zoloft - PO 25 mg DAILY [facility] Administration Microbiology 09/27/18 09:40 Urine - Urine Clean Catch Urine Culture - Final Escherichia Coli 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 -Dizziness, Positional, suspect orthostatic compounded by hypovolumia (From osmotic diuresis from hyperglycemia)/Uncontrolled HTN -Hypertensive urgency, suspect from non compliance -Elevated troponin, suspect demand induced from above rather than ACS -Hyperglycemia, from non compliance -Lower uncomplicated UTI -Depression Plan: BP improved. Continue amlodipine/ARB. Hydralazine Prn for SBP .>180. Baseline HR 60s in the ED, hold off on beta renate. trop flat. Follow up 2D echo and cardiology input Continue ASA.Lipid panel noted. A1c >10, ISS, diabetic diet and education. Ideally should be on insulin but given compliance, follow up and self- administration concerns, will start glimepiride 1 mg daily. resume metformin if no further cardiac intervention planned. Ceftriaxone day 2, follow up urine cultures. D/c IVF. Continue sertraline, psychology input Dr. Abad PT eval [id number] lovenox Dispo planning in 24hours if continues to improve an disposition arranged.
--- NOTE | 2018-09-29 13:11 | PN ---
Progress Note (short form) - Note Progress Note: ID CONSULT DICTATED ESBL UTI ADVISE MACROBID 100MG PO BID X 7D
--- NOTE | 2018-09-29 14:30 | DS ---
Physical Exam: SUBJECTIVE: Patient seen and examined, no complaints, eager to go home. OBJECTIVE: Vital Signs Period Temp Pulse Resp BP Sys/Powers Pulse Ox Last 24 Hr 98.0 F-98.4 F 75-84 18-18 131-179/56-96 97-97 PHYSICAL EXAM GENERAL: The patient is awake, alert, and fully oriented, in no acute distress. HEAD: Normal with no signs of trauma. EYES: PERRL, extraocular movements intact, sclera anicteric, conjunctiva clear. ENT: Ears normal, nares patent, oropharynx clear without exudates, moist mucous membranes. NECK: Trachea midline, full range of motion, supple. LUNGS: Breath sounds equal, clear to auscultation bilaterally, no wheezes, no crackles, no accessory muscle use. HEART: Regular rate and rhythm, S1, S2 ABDOMEN: Soft, nontender, nondistended, normoactive bowel sounds, no guarding, no rebound, no suprapubic or CVA tenderness EXTREMITIES: 2+ pulses, warm, well-perfused, no edema. NEUROLOGICAL: AAOx3,Cranial nerves II through XII grossly intact. Normal speech , ambulating freely in the hallway PSYCH: anxious but in no acute distress SKIN: Warm, dry, normal turgor, no rashes or lesions noted. LABS Laboratory Results - last 24 hr 09/28/18 09/28/18 09/29/18 16:28 21:09 05:10 Sodium Potassium Chloride Carbon Dioxide Anion Gap BUN Creatinine Creat Clearance w eGFR POC Glucometer 289 207 194 Random Glucose Calcium Phosphorus Magnesium 09/29/18 09/29/18 06:00 11:30 Sodium 140 Potassium 3.4 L Chloride 109 H Carbon Dioxide 23 Anion Gap 8 BUN 15 Creatinine 0.8 Creat Clearance w eGFR 68.17 POC Glucometer 178 Random Glucose 209 H Calcium 8.6 Phosphorus 3.6 Magnesium 1.8 Microbiology 09/27/18 09:40 Urine - Urine Clean Catch Urine Culture - Final Escherichia Coli Esbl Ledge Man 2D echo EF >70%, grade II diastolic dysfunction CT brain neg for acute process HOSPITAL COURSE: Date of Admission:09/27/18 Date of Discharge: 09/29/18 Minutes to complete discharge: 40 Discharge Summary Reason For Visit: ELEVATED TROPONIN LEVEL,WEAKNESS Current Active Problems Anxiety (Acute) Depressed (Acute) Weakness (Acute) Hospital Course: 87 yof with PMhx of NIDDM, HTN, diverticulosis, depression, not taking her meds for a year admitted with dizzinesss/fall, found hypertensive, hyperglycemic, troponin 0.14, and UTI. Her home medications ARB and amlodipine were resumed with improvement in BP. Her troponin was unchanged at 0.14. Her 2D echo showed with results as above but no acute concerns. Cardiology was consulted and she is advised outpatient follow up but no additional inpatient intervention. For her hyperglycemia, she was placed on sliding scale, her A1c was >10, she was started on glimepiride. However, given concerns for compliance and risk of hypoglycemia, she will be discharged on metformin 500 mg twice daily with outpatient follow up with her PCP. She was placed on ceftriaxone for UTI, her urine cultures came back positive for ESBL. Infectious disease was consulted and she will be placed on nitrofurantoin 100 mg BID for 7 days. Patient was found with positive Suicide risk screen by social work, psychiatry was consulted. She was not deemed a suicide risk. She was resumed on her sertraline and advised outpatient follow up with Dr. Abad. She will be discharged home with services as per patient and daughter's expressed wishes. Condition: Stable - Instructions Diet, Activity, Other Instructions: You were admitted with dizziness and fall. Your BP was high and improved with resuming your medicines. Your blood sugar was high You were also found with urinary infection and started on antibiotics MEDICATIONS: You are strongly advised to resume all your home medications. New prescriptions have been sent for all your medications to the pharmacy. Your metformin has been increased to twice daily. Also you are started on a new antibiotic for your urinary tract infection. Please take twice daily for 7 days. FOLLOW UP: please note that your blood sugars were high. your metformin is resumed and increased to 500 mg twice daily. However, it is highly likely that you will be needing additional medications to control your blood sugars. please follow up with Dr. Jaime in 1 week for the same. In the interim you are advised to check your blood sugars before meals and at night or atleast 1-2 times daily and maintain a diary. Notify your doctor if persistently > 200 or any reading >350 noted. Also recommend outpatient process project engineer follow up. If you notice any new rash or concerns on the new antibiotic come to the ED If you notice any new fevers, chills, worsening dizziness, chest pain, tongue or face swelling, trouble breathing or any new concerns, call 911 or come to the ED immediately. You were seen by psychiatrist for concerns of depression. Please resume your depression medication as before. Prescription has been sent. You are advised to follow up with Dr. Abad (psychologist). (Information provided). Referrals: Woody Arias MD [Primary Care Provider] - Brandon Patel MD [Staff Physician] - Deepak Abad PSYD [Psychologist] - Disposition: VNS/HOME HEALTH CARE - Home Medications Comprehensive Discharge Medication List: Ambulatory Orders Amlodipine Besylate 10 mg PO DAILY #30 tablet 09/29/18 Aspirin Coated [Ecotrin -] 81 mg PO DAILY #30 tablet.ec 09/29/18 Metformin HCl [Glucophage] 500 mg PO BID #60 tablet 09/29/18 Miscellaneous Medical Supply [Glucometer Device] 1 each .ROUTE ASDIR #1 kit Miscellaneous [employer] Supply [Glucometer Test Strips #100] 1 each .ROUTE ASDIR # 1 box 09/29/18 Nitrofurantoin Monohyd/M-Cryst [Macrobid -] 100 mg PO BID #14 capsule 09/29/18 Olmesartan Medoxomil 40 mg PO DAILY #30 tablet 09/29/18 Sertraline HCl 25 mg PO DAILY #30 tablet 09/29/18 This patient is new to me today: No Emergency Visit: Yes ED Registration Date: 09/27/18 Care time: The patient presented to the Emergency Department on the above date and was hospitalized for further evaluation of their emergent condition. Critical Care patient: No - Discharge Referral Referred to [facility] No
[2018-09-29 14:55] VITALS: BP 133/79; PULSE 78; TEMP 98.3
[2018-10-04] MEDS ORDERED: cloNIDine-TTS 0.1 MG/24 HRS PATCH.TDWK TD SCH (10:00)
== END 2018-09-29 16:54 | disposition home health service (06) | DRG 638 ==
LOC: SUPCPDRO 07:18 → JER 07:18 → JERBED 12:24 → J4S 17:28
PROVIDERS: ADMIT Hospitalist; ATTEND Hospitalist
DX: E11.65 Type 2 diabetes mellitus with hyperglycemia (principal); N39.0 Urinary tract infection, site not specified; I24.8 Other forms of acute ischemic heart disease; R45.851 Suicidal ideations; I10 Essential (primary) hypertension; Z91.14 Patient's other noncompliance with medication regimen; F32.9 Major depressive disorder, single episode, unspecified; I16.0 Hypertensive urgency; Z79.4 Long term (current) use of insulin; R20.0 Anesthesia of skin; F41.9 Anxiety disorder, unspecified
CPT/HCPCS: 36415; 70450-TC; 71045-TC-FY; 80048; 80053; 80061; 81003; 81015; 82550; 82962; 83036; 83721; 83735; 84100; 84484; 85025; 85610; 87086; 87186; 93005; 93010; 93306-TC; 97116-GP; 97161-GP; 99284-25; J7030

== ENCOUNTER 2019-08-30 12:13 | Inpatient (IN) | payer OTHER, BC ==
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
[2019-08-30 13:03] VITALS: BMI 22.8
[2019-08-30] MEDS ORDERED: ACETAMINOPHEN 1000 MG/100 ML VIAL (NON FORMULARY) IVPB ONE (13:04)
[2019-08-30] MEDS ORDERED: ACETAMINOPHEN INJECTION 100 ML IVPB ONE (13:22)
[2019-08-30 13:29] LABS: BASO % 0.5 % (0-2.0); EOS % 0.6 % (0-4.5); HEMATOCRIT 36.8 % (32.4-45.2); HEMOGLOBIN 12.3 GM/dL (10.7-15.3); LYMPH % 13.8 % (8-40); MCH 27.5 pg (25.7-33.7); MCHC 33.5 g/dl (32.0-36.0); MEAN CELL VOLUME 82.1 fl (80-96); MEAN PLT VOLUME 9.8 fl (7.5-11.1); MONO % 5.1 % (3.8-10.2); PLATELET COUNT 210 K/MM3 (134-434); RBC 4.49 M/mm3 (3.60-5.2); RDW 13.2 % (11.6-15.6); WHITE BLOOD COUNT 11.5 K/mm3 (4.0-10.0)
[2019-08-30 13:48] LABS: INR 1.06 (0.83-1.09); PROTHROMBIN TIME (PATIENT) 12.5 SEC (9.7-13.0)
--- NOTE | 2019-08-30 13:55 | PDOC ---
Attending Attestation - Resident Resident Name: Hans Meade - ED Attending Attestation I have performed the following: I have examined & evaluated the patient, The case was reviewed & discussed with the resident, I agree w/resident's findings & plan, Exceptions are as noted - HPI HPI: 88 yo F history DM, CHF, HTN, depression presents s/p mechanical fall this morning. She states she has severe R hip pain, unable to walk. Pain is severe, worse with any attempt at movement. - Physicial Exam PE: GENERAL: Awake, alert, and fully oriented, appears in obvious pain. HEAD: No signs of trauma EYES: PERRLA, EOMI, sclera anicteric, conjunctiva clear ENT: Auricles normal inspection, hearing grossly normal, nares patent, oropharynx clear without exudates. Moist mucosa NECK: Normal ROM, supple, no lymphadenopathy, JVD, or masses LUNGS: Breath sounds equal, clear to auscultation bilaterally. No wheezes, and no crackles HEART: Regular rate and rhythm, normal S1 and S2, no murmurs, rubs or gallops ABDOMEN: Soft, nontender, normoactive bowel sounds. No guarding, no rebound. No masses EXTREMITIES: RLE with decreased ROM due to pain, remainder of extremities with normal range of motion, no edema. No clubbing or cyanosis. No cords, erythema, or tenderness NEUROLOGICAL: Cranial nerves II through XII grossly intact. Normal speech. Motor and sensation intact SKIN: Warm, dry, normal turgor, no rashes or lesions noted. - Medical Decision Making Pt presents with RLE pain, XR consistent with hip fx. Will admit for surgical management.
[2019-08-30] MEDS ORDERED: morphine CARPU-JECT 2 MG/1 ML DISP.SYRIN IVPUSH ONE ×2 (13:59→15:04)
[2019-08-30 14:08] LABS: ALBUMIN 3.6 g/dl (3.4-5.0); BILIRUBIN,TOTAL 0.5 mg/dL (0.2-1); BLOOD UREA NITROGEN 16.6 mg/dL (7-18); CALCIUM 9.5 mg/dL (8.5-10.1); CREATININE 1.2 mg/dL (0.55-1.3); POTASSIUM 4.9 mmol/L (3.5-5.1); TOT PROT 6.9 g/dl (6.4-8.2)
[2019-08-30] MEDS ORDERED: MORPHINE SULFATE 2 MG/ML VIAL ONE ×2 (14:18→15:15)
--- NOTE | 2019-08-30 14:52 | EKG ---
Test Reason : Blood Pressure : / mmHG Vent. Rate : 072 BPM Atrial Rate : 072 BPM P-R Int : 120 ms QRS Dur : 096 ms QT Int : 426 ms P-R-T Axes : 049 -46 -06 degrees QTc Int : 466 ms POOR DATA QUALITY, INTERPRETATION MAY BE ADVERSELY AFFECTED NORMAL SINUS RHYTHM POSSIBLE LEFT ATRIAL ENLARGEMENT INCOMPLETE RIGHT BUNDLE BRANCH BLOCK LEFT ANTERIOR FASCICULAR BLOCK LEFT VENTRICULAR HYPERTROPHY ABNORMAL ECG WHEN COMPARED WITH ECG OF 27-SEP-2018 08:24, NO SIGNIFICANT CHANGE IS FOUND Confirmed by Nahed Monroe ([id number]) on 08/30/2019 2:52:47 PM Referred By: Confirmed By:Nahed Monroe
[2019-08-30] MEDS ORDERED: INSULIN REGULAR HUMAN 100 UNITS/ML *VIAL IVPUSH ONE (15:31)
--- NOTE | 2019-08-30 16:41 | PN ---
Physical Exam: SUBJECTIVE: Patient seen and examined OBJECTIVE: Vital Signs Period Temp Pulse Resp BP Sys/Powers Pulse Ox Last 24 Hr 97.8 F-98.2 F 69-75 16-16 144-199/59-76 96-100 GENERAL: The patient is awake, alert, and fully oriented, in no acute distress. HEAD: Normal with no signs of trauma. EYES: PERRL, extraocular movements intact, sclera anicteric, conjunctiva clear. No ptosis. ENT: Ears normal, nares patent, oropharynx clear without exudates, moist mucous membranes. NECK: Trachea midline, full range of motion, supple. LUNGS: Breath sounds equal, clear to auscultation bilaterally, no wheezes, no crackles, no accessory muscle use. HEART: Regular rate and rhythm, S1, S2 without murmur, rub or gallop. ABDOMEN: Soft, nontender, nondistended, normoactive bowel sounds, no guarding, no rebound, no hepatosplenomegaly, no masses. EXTREMITIES: 2+ pulses, warm, well-perfused, no edema. NEUROLOGICAL: Cranial nerves II through XII grossly intact. Normal speech, gait not observed. PSYCH: Normal mood, normal affect. SKIN: Warm, dry, normal turgor, no rashes or lesions noted Laboratory Results - last 24 hr 08/30/19 08/30/19 08/30/19 13:10 13:10 13:10 WBC 11.5 H RBC 4.49 Hgb 12.3 Hct 36.8 MCV 82.1 MCH 27.5 MCHC 33.5 RDW 13.2 Plt Count 210 D MPV 9.8 D Absolute Neuts (auto) 9.2 H Neutrophils % 80.0 D Lymphocytes % 13.8 D Monocytes % 5.1 Eosinophils % 0.6 D Basophils % 0.5 Nucleated RBC % 0 PT with INR INR Sodium 137 Potassium 4.9 Chloride 104 Carbon Dioxide 23 Anion Gap 10 BUN 16.6 Creatinine 1.2 Est GFR (CKD-EPI)AfAm 47.39 Est GFR (CKD-EPI)NonAf 40.89 Random Glucose 395 H Calcium 9.5 Total Bilirubin 0.5 AST 20 ALT 21 Alkaline Phosphatase 76 Creatine Kinase 59 Troponin I 0.07 H Total Protein 6.9 Albumin 3.6 TSH 0.70 Blood Type Antibody Screen 08/30/19 08/30/19 13:10 13:10 WBC RBC Hgb Hct MCV MCH MCHC RDW Plt Count MPV Absolute Neuts (auto) Neutrophils % Lymphocytes % Monocytes % Eosinophils % Basophils % Nucleated RBC % PT with INR 12.50 INR 1.06 Sodium Potassium Chloride Carbon Dioxide Anion Gap BUN Creatinine Est GFR (CKD-EPI)AfAm Est GFR (CKD-EPI)NonAf Random Glucose Calcium Total Bilirubin AST ALT Alkaline Phosphatase Creatine Kinase Troponin I Total Protein Albumin TSH Blood Type O POSITIVE Antibody Screen Negative CBC, BMP 08/30/19 13:10 08/30/19 13:10 ASSESSMENT/PLAN: This is a 87 year old female with a history of IDDM, HTN, diverticulosis, depression, presented with after fall on her right side found to have right hip fx and elevated trop # Right interchanter fx S/P fall * admit to M/S * xray reviwed * consult orthopedics * pain control * Echo * PT/PTT INR , type and screen * NPO * IV fluids gentle hydration NS @ 42 Cc/hr * cardiology consult * * * #fall 2/2 psyncope vs dehydration vs mechanical fall vs imbalance gait * head CT * echo * bp controlled; * PT eval after surgery #Hypertensive -still with elevated bp, improved; although has been agitated all day -continue losartan 100mg qd -cont norvasc 10mg qd -hydralizine IV prn #elevated troponin likely demand ischemia , no EKG changes , * ACS unlikely; ml demand ischemia * echo #DM * last hemoglobin a1c 10.repeat * currently onSS * hold oral agents * npo for now #depression with suicidal ideation * on zoloft #dvt ppl: lovenox Dispo : monitor in tele ATTENDING PHYSICIAN STATEMENT I saw and evaluated the patient. I reviewed the resident's note and discussed the case with the resident. I agree with the resident's findings and plan as documented. SUBJECTIVE: OBJECTIVE: ASSESSMENT AND PLAN:
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
[2019-08-30] MEDS ORDERED: amLODIPine BESYLATE 5 MG TABLET (FP) ONE (19:28)
[2019-08-30] MEDS ORDERED: INSULIN REGULAR HUMAN 100 UNITS/ML *VIAL ONE (19:30)
[2019-08-30] MEDS: SODIUM CHLORIDE 1,000 ML IV SCH (19:41)
[2019-08-30] MEDS: amLODIPine BESYLATE 10 MG TABLET (FP) PO SCH (19:41)
--- NOTE | 2019-08-30 21:30 | PN ---
Teaching Attending Note Name of Resident: Eduardo Rahman ATTENDING PHYSICIAN STATEMENT I saw and evaluated the patient. I reviewed the resident's note and discussed the case with the resident. I agree with the resident's findings and plan as documented. SUBJECTIVE: Patient seen and examined at bedside. Unsure if she syncopized or had mechanical fall, poor historian, complaining of RLE pain especially on movement, denies CP/SOB otherwise, VSS. OBJECTIVE: GENERAL: AAox3, speaking in full sentences, sometimes repeating herself HEAD: NC/AT, no facial lacerations or scalp trauma EYES: Pupils equal, round and reactive to light, extraocular movements intact, ENT: dry MM NECK: Normal range of motion, supple LUNGS: CTAB, no crackles or wheezing HEART: S1, S2+, SULEMAN+ ABDOMEN: Soft, nontender, not distended, normoactive bowel sounds, UPPER EXTREMITIES: 2+ pulses, warm, well-perfused. No cyanosis. No clubbing. No peripheral edema. LOWER EXTREMITIES: 2+ pulses, warm, well-perfused. No calf tenderness. No peripheral edema. RLE abducted and shorter than LLE, severe pain in RLE on manipulation, good ROM LLE, limited motion RLE d/t pain NEUROLOGICAL: no focal deficit . Normal speech. gait not observed PSYCHIATRIC: Cooperative. sometimes repeating herself saying "I'm sorry" SKIN: Warm, dry, normal turgor. Vital Signs - 24 hr 08/30/19 08/30/19 08/30/19 12:13 13:34 15:36 Temperature 97.8 F 97.9 F Pulse Rate 75 Pulse Rate [ 73 Right Radial] Respiratory 16 16 Rate Blood Pressure 199/72 H Blood Pressure 144/76 [Left Arm] O2 Sat by Pulse 100 97 96 Oximetry (%) 08/30/19 08/30/19 16:36 19:38 Temperature 98.2 F 97.9 F Pulse Rate Pulse Rate [ 69 72 Right Radial] Respiratory Rate Blood Pressure Blood Pressure 152/59 L 155/62 [Left Arm] O2 Sat by Pulse 98 98 Oximetry (%) Laboratory Results - last 24 hr 08/30/19 08/30/19 08/30/19 13:10 13:10 13:10 WBC 11.5 H RBC 4.49 Hgb 12.3 Hct 36.8 MCV 82.1 MCH 27.5 MCHC 33.5 RDW 13.2 Plt Count 210 D MPV 9.8 D Absolute Neuts (auto) 9.2 H Neutrophils % 80.0 D Lymphocytes % 13.8 D Monocytes % 5.1 Eosinophils % 0.6 D Basophils % 0.5 Nucleated RBC % 0 PT with INR INR Sodium 137 Potassium 4.9 Chloride 104 Carbon Dioxide 23 Anion Gap 10 BUN 16.6 Creatinine 1.2 Est GFR (CKD-EPI)AfAm 47.39 Est GFR (CKD-EPI)NonAf 40.89 POC Glucometer Random Glucose 395 H Calcium 9.5 Total Bilirubin 0.5 AST 20 ALT 21 Alkaline Phosphatase 76 Creatine Kinase 59 Troponin I 0.07 H Total Protein 6.9 Albumin 3.6 TSH 0.70 Blood Type Antibody Screen 08/30/19 08/30/19 08/30/19 13:10 13:10 18:20 WBC RBC Hgb Hct MCV MCH MCHC RDW Plt Count MPV Absolute Neuts (auto) Neutrophils % Lymphocytes % Monocytes % Eosinophils % Basophils % Nucleated RBC % PT with INR 12.50 INR 1.06 Sodium Potassium Chloride Carbon Dioxide Anion Gap BUN Creatinine Est GFR (CKD-EPI)AfAm Est GFR (CKD-EPI)NonAf POC Glucometer Random Glucose Calcium Total Bilirubin AST ALT Alkaline Phosphatase Creatine Kinase 74 Troponin I 0.08 H Total Protein Albumin TSH Blood Type O POSITIVE Antibody Screen Negative 08/30/19 19:33 WBC RBC Hgb Hct MCV MCH MCHC RDW Plt Count MPV Absolute Neuts (auto) Neutrophils % Lymphocytes % Monocytes % Eosinophils % Basophils % Nucleated RBC % PT with INR INR Sodium Potassium Chloride Carbon Dioxide Anion Gap BUN Creatinine Est GFR (CKD-EPI)AfAm Est GFR (CKD-EPI)NonAf POC Glucometer 304 Random Glucose Calcium Total Bilirubin AST ALT Alkaline Phosphatase Creatine Kinase Troponin I Total Protein Albumin TSH Blood Type Antibody Screen Home Medications Medication Instructions Recorded Amlodipine Besylate 10 mg PO DAILY #30 tablet 09/29/18 Aspirin Coated [Ecotrin -] 81 mg PO DAILY #30 tablet.ec 09/29/18 Metformin HCl [Glucophage] 500 mg PO BID #60 tablet 09/29/18 Miscellaneous Medical Supply 1 each .ROUTE ACHS #1 box 09/29/18 [Glucometer Test Strips #100] Nitrofurantoin Monohyd/M-Cryst 100 mg PO BID #14 capsule 09/29/18 [Macrobid -] Olmesartan Medoxomil 40 mg PO DAILY #30 tablet 09/29/18 Sertraline HCl 25 mg PO DAILY #30 tablet 09/29/18 Valsartan 80 mg PO DAILY 08/30/19 Current Medications Generic Name Dose Route Start Last Admin Trade Name Travis PRN Reason Stop Dose Admin Amlodipine Besylate 10 mg 08/30/19 17:30 08/30/19 19:41 Norvasc - PO 10 mg DAILY EPHRAIM Administration Sodium Chloride 1,000 mls @ 42 mls/hr 08/30/19 17:30 08/30/19 19:41 Normal Saline - IV 42 mls/hr ASDIR EPHRAIM Administration Insulin Aspart 1 vial 08/30/19 22:00 Novolog Vial Sliding Scale - SQ ACHS EPHRAIM Protocol Morphine Sulfate 2 mg 08/30/19 17:20 Morphine Sulfate IVPUSH Q4H PRN PAIN LEVEL 4 - 6 Sertraline HCl 25 mg 08/31/19 10:00 Zoloft - PO DAILY EPHRAIM Valsartan 80 mg 08/31/19 10:00 Diovan - PO DAILY EPHRAIM A/P: 87 F h/o IDDM, HTN, diverticulosis, depression presents s/p fall ?mechanical v.s. syncopal, and troponemia. Right intertrochanter fx S/P fall ?mechanical v.s. syncopal, pt. poor historian, CT-head neg. for ICH or acute infarct, admit to tele for further monitoring to r/o arrythmias Obtain EKG/Trops x3 sets, optimize BP/statin Pain control w/ IV opioids Ortho consult: Dr. Samaria Medrano mechanical v.s. syncope CT head: negative for ICH, old infarcts, get repeat echo, last one was last year w/ some valvular abnormalities, grossly preserved LV function Tele monitoring, repeat trops in setting of troponemia (likely d/t demand) to document peak Cont. BB/Statin/ASA Cardiology consult HTN not controlled, restart home BP meds Uncontrolled T2DM ISS, supllement with basal insulin patient endorses non-compliance w/ insulin regimen, reinforced compliance FS AC/QHS, counseled on diet and glucose management Depression denies SI/HI, slightly tearful, provided support to patient restart antidepressants DVT ppx: Heparin SC Admit to telemetry
[2019-08-30] MEDS ORDERED: HEPARIN NA (PORCINE) 5,000 UNITS/ML 1ML VIAL SQ SCH (22:00)
[2019-08-31] MEDS: INSULIN SLIDING SCALE (NOVOLOG) 1 VIAL SQ SCH ×5 (00:30→21:25)
--- NOTE | 2019-08-31 07:20 | PN ---
Physical Exam: SUBJECTIVE: Patient seen and examined at bed side , still in ED no bed nurses reports some agitation and dilirium , pain is controlled , seen by ortho , for OR tomorrow Am , NPO after med night OBJECTIVE: Vital Signs Period Temp Pulse Resp BP Sys/Powers Pulse Ox Last 24 Hr 97.8 F-98.6 F 69-80 16-18 144-199/59-76 96-100 GENERAL:confused HEAD: NC/AT EYES: Pupils equal, round and reactive to light, extraocular movements intact, EARS, NOSE, THROAT: dry mucous membranes. NECK: Normal range of motion, supple LUNGS: Breath sounds equal, clear to auscultation bilaterally. No wheezes, and no crackles. No accessory muscle use. HEART: Regular rate and rhythm, normal S1 and S2,4/6 systolic murmur all over RUSB , LUSB radiated to neck ABDOMEN: Soft, nontender, not distended, normoactive bowel sounds, UPPER EXTREMITIES: 2+ pulses, warm, well-perfused. No cyanosis. No clubbing. No peripheral edema. LOWER EXTREMITIES: 2+ pulses, warm, well-perfused. No calf tenderness. No peripheral edema. right leg is shorter and externally rotated , +2 DP, left leg FROM proximal and distal , lright leg limited ROM due to pain NEUROLOGICAL: no focal deficit . Normal speech. gait not observed PSYCHIATRIC: Cooperative. SKIN: Warm, dry, normal turgor, Laboratory Results - last 24 hr 08/30/19 08/30/19 08/30/19 13:10 13:10 13:10 WBC 11.5 H RBC 4.49 Hgb 12.3 Hct 36.8 MCV 82.1 MCH 27.5 MCHC 33.5 RDW 13.2 Plt Count 210 D MPV 9.8 D Absolute Neuts (auto) 9.2 H Neutrophils % 80.0 D Lymphocytes % 13.8 D Monocytes % 5.1 Eosinophils % 0.6 D Basophils % 0.5 Nucleated RBC % 0 PT with INR INR Sodium 137 Potassium 4.9 Chloride 104 Carbon Dioxide 23 Anion Gap 10 BUN 16.6 Creatinine 1.2 Est GFR (CKD-EPI)AfAm 47.39 Est GFR (CKD-EPI)NonAf 40.89 POC Glucometer Random Glucose 395 H Calcium 9.5 Total Bilirubin 0.5 AST 20 ALT 21 Alkaline Phosphatase 76 Creatine Kinase 59 Troponin I 0.07 H Total Protein 6.9 Albumin 3.6 TSH 0.70 Blood Type Antibody Screen 08/30/19 08/30/19 08/30/19 13:10 13:10 18:20 WBC RBC Hgb Hct MCV MCH MCHC RDW Plt Count MPV Absolute Neuts (auto) Neutrophils % Lymphocytes % Monocytes % Eosinophils % Basophils % Nucleated RBC % PT with INR 12.50 INR 1.06 Sodium Potassium Chloride Carbon Dioxide Anion Gap BUN Creatinine Est GFR (CKD-EPI)AfAm Est GFR (CKD-EPI)NonAf POC Glucometer Random Glucose Calcium Total Bilirubin AST ALT Alkaline Phosphatase Creatine Kinase 74 Troponin I 0.08 H Total Protein Albumin TSH Blood Type O POSITIVE Antibody Screen Negative 08/30/19 08/31/19 08/31/19 19:33 00:24 06:26 WBC RBC Hgb Hct MCV MCH MCHC RDW Plt Count MPV Absolute Neuts (auto) Neutrophils % Lymphocytes % Monocytes % Eosinophils % Basophils % Nucleated RBC % PT with INR INR Sodium Potassium Chloride Carbon Dioxide Anion Gap BUN Creatinine Est GFR (CKD-EPI)AfAm Est GFR (CKD-EPI)NonAf POC Glucometer 304 304 190 Random Glucose Calcium Total Bilirubin AST ALT Alkaline Phosphatase Creatine Kinase Troponin I Total Protein Albumin TSH Blood Type Antibody Screen Active Medications Generic Name Dose Route Start Last Admin Trade Name Freq PRN Reason Stop Dose Admin Amlodipine Besylate 10 mg 08/30/19 17:30 08/30/19 19:41 Norvasc - PO 10 mg DAILY [facility] Administration Sodium Chloride 1,000 mls @ 42 mls/hr 08/30/19 17:30 08/30/19 19:41 Normal Saline - IV 42 mls/hr ASDIR E[facility]IM Administration Insulin Aspart 1 vial 08/30/19 22:00 08/31/19 07:06 Novolog Vial Sliding Scale - SQ Not Given ACHS EPHRAIM Protocol Morphine Sulfate 2 mg 08/30/19 17:20 Morphine Sulfate IVPUSH Q4H PRN PAIN LEVEL 4 - 6 Sertraline HCl 25 mg 08/31/19 10:00 Zoloft - PO DAILY E[facility]RAIM Valsartan 80 mg 08/31/19 10:00 Diovan - PO DAILY EPHRAIM CBC, BMP 08/31/19 06:15 08/31/19 05:10 ASSESSMENT/PLAN: This is a 87 year old female with a history of IDDM, HTN, diverticulosis, depression, presented with after fall on her right side found to have right hip fx and elevated trop # Right intertrochanter fx S/P fall * admit to tele * xray reviwed , order head CT * consult orthopedics , spoke with Dr schulz over the phone will see her in AM * pain control V morphin 2 mg Q 4hr * Echo was done in september 2018 wit EF 70 % and mild D chf grade II , Mild and AR , will repeat as more than 6 month * PT/PTT INR , type and screen * NPO after mid night , will feed her during the day * IV fluids gentle hydration NS @ 42 Cc/hr * cardiology consult spoke with Dr lopez will see her in AM * ortho consult Dr kevan ibrahim * No absolute contraindication for hip surgery in view of absence of ischemic symptoms, decompensated congestive heart failure or malignant arrhythmia per cardiology * intermediate to high risk patient for intermediate to high risk procedure #fall 2/2 syncope vs dehydration vs mechanical fall vs imbalance gait * head CT negative for acute pathology * echo reviewed EF 65 % , LVH , mild MR and TR and AR , normal LV function * bp monitor * PT eval after surgery * will benefit from JOELLEN #Hypertensive , non compliant with her meds * still with elevated bp, * cont valsartan 80 mg qD * cont norvasc 10mg qd hold for sytolic less than 100 #elevated troponin likely demand ischemia , no EKG changes , * trend trop * ACS unlikely; likeey demand ischemia * echo * cardiology consulted #DM , uncontrolled 2/2 non complint , A1c 13 * last hemoglobin a1c 10.repeat 13 * currently on ISS, add levimer 5 units SQ once * hold oral agents * npo after mid night #depression with suicidal ideation * on zoloft, cont # MVR And AR noted on Echo , follow up out pt #dvt ppl: Hep SQone dose now only and hold in AM hold in Am if ortho decide surgery Visit type - Emergency Visit Emergency Visit: Yes ED Registration Date: 08/30/19 Care time: The patient presented to the Emergency Department on the above date and was hospitalized for further evaluation of their emergent condition. - New Patient This patient is new to me today: No - Critical Care Critical Care patient: No - Discharge Referral Referred to [facility] Med P.C.: No ATTENDING PHYSICIAN STATEMENT I saw and evaluated the patient. I reviewed the resident's note and discussed the case with the resident. I agree with the resident's findings and plan as documented. SUBJECTIVE: OBJECTIVE: ASSESSMENT AND PLAN:
[2019-08-31 07:28] LABS: BASO % 0.8 % (0-2.0); EOS % 0.3 % (0-4.5); HEMATOCRIT 33.6 % (32.4-45.2); HEMOGLOBIN 11.3 GM/dL (10.7-15.3); LYMPH % 16.6 % (8-40); MCH 27.7 pg (25.7-33.7); MCHC 33.6 g/dl (32.0-36.0); MEAN CELL VOLUME 82.4 fl (80-96); MEAN PLT VOLUME 10.3 fl (7.5-11.1); NEUT % 73.3 % (42.8-82.8); PLATELET COUNT 206 K/MM3 (134-434); RBC 4.08 M/mm3 (3.60-5.2); RDW 13.1 % (11.6-15.6); WHITE BLOOD COUNT 10.1 K/mm3 (4.0-10.0)
[2019-08-31 07:42] LABS: INR 1.08 (0.83-1.09); PROTHROMBIN TIME (PATIENT) 12.8 SEC (9.7-13.0)
[2019-08-31 07:43] LABS: ALBUMIN 3.2 g/dl (3.4-5.0); BILIRUBIN,TOTAL 0.8 mg/dL (0.2-1); BLOOD UREA NITROGEN 16.6 mg/dL (7-18); CALCIUM 9.3 mg/dL (8.5-10.1); CREATININE 0.9 mg/dL (0.55-1.3); MAGNESIUM 1.8 mg/dL (1.8-2.4); N-TERMINAL BNP 1288.2 pg/ml (5-450); PHOSPHOROUS 2.9 mg/dL (2.5-4.9); POTASSIUM 3.8 mmol/L (3.5-5.1); TOT PROT 6.4 g/dl (6.4-8.2)
[2019-08-31 07:45] LABS: ACTIVATED PTT 31.3 SECONDS (25.2-36.5)
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
--- NOTE | 2019-08-31 09:18 | EKG ---
Test Reason : Blood Pressure : / mmHG Vent. Rate : 076 BPM Atrial Rate : 076 BPM P-R Int : 142 ms QRS Dur : 106 ms QT Int : 414 ms P-R-T Axes : 057 -47 061 degrees QTc Int : 465 ms NORMAL SINUS RHYTHM INCOMPLETE RIGHT BUNDLE BRANCH BLOCK LEFT ANTERIOR FASCICULAR BLOCK LEFT VENTRICULAR HYPERTROPHY WITH REPOLARIZATION ABNORMALITY ABNORMAL ECG Confirmed by Guru Mcgarry MD ([id number]) on 08/31/2019 9:17:49 AM Referred By: Confirmed By:Guru Mcgarry MD
--- NOTE | 2019-08-31 09:41 | PN ---
Teaching Attending Note Name of Resident: Eduardo Rahman ATTENDING PHYSICIAN STATEMENT I saw and evaluated the patient. I reviewed the resident's note and discussed the case with the resident. I agree with the resident's findings and plan as documented. SUBJECTIVE: Complaint of right hip pain OBJECTIVE: Vital Signs Temperature 98.6 F 08/30/19 21:00 Pulse Rate 80 08/31/19 06:52 Respiratory Rate 16 08/31/19 06:52 Blood Pressure 166/60 08/31/19 06:52 O2 Sat by Pulse Oximetry (%) 96 08/31/19 06:52 General: Elderly female, comfortable, not in distress HEENT; mucous membranes moist, no anemia, no jaundice, PERRLA, no nystagmus Neck: No JVD, supple, no bruit, thyroid palpably normal, normal carotid pulsations. Chest: Nontender, clear to auscultation bilaterally CVS: S1-S2 systolic murmur no/gallop/rub Abdomen: Nondistended, soft, bowel sounds present. Extremities: Right hip pain, right lower extremity laterally rotated no edema., No calf tenderness, pulses present [employer]: AO X3 , no gross motor sensory deficit CBC, BMP 08/31/19 06:15 08/31/19 05:10 EKG: Heart rate 74, normal AR interval, RBBB left anterior hemiblock Brewster -[address]-T changes LVH. Echocardiogram: Shows LVH, normal EF, moderate aortic stenosis, mild MR TR and AI X-ray right hip: Right femoral neck fracture. CT head: No acute changes Active Medications Amlodipine Besylate (Norvasc -) 10 mg PO DAILY [facility] Last Admin: 08/30/19 19:41 Dose: 10 mg Sodium Chloride (Normal Saline -) 1,000 mls @ 42 mls/hr IV ASDIR [facility] Last Admin: 08/30/19 19:41 Dose: 42 mls/hr Insulin Aspart (Novolog Vial Sliding Scale -) 1 vial SQ ACHS [facility]; Protocol Last Admin: 08/31/19 07:06 Dose: Not Given Morphine Sulfate (Morphine Sulfate) 2 mg IVPUSH Q4H PRN PRN Reason: PAIN LEVEL 4 - 6 Sertraline HCl (Zoloft -) 25 mg PO DAILY [facility] Valsartan (Diovan -) 80 mg PO DAILY [facility] ASSESSMENT AND PLAN: 88-year-old female history of diastolic heart failure, hypertension depression presented to ED after sustaining a mechanical fall with right femoral neck fracture evaluated by orthopedics, recommended surgery tomorrow. Impression: Closed fracture right hip Problem List - Problems (1) Hip fracture, right Assessment/Plan: Standing a mechanical fall, evaluate with orthopedics recommended surgery at after clearance from cardiology, they cleared by cardiology, pain control, nonweightbearing, n.p.o. after midnight for surgery in the morning, SCD for DVT prophylaxis defer anticoagulation with heparin/Lovenox Problems reviewed: Yes Code(s): S72.001A - FRACTURE OF UNSP PART OF NECK OF RIGHT FEMUR, INIT (2) Hypertension Assessment/Plan: Continue home medication at present blood pressure is well controlled, continue amlodipine and valsartan Problems reviewed: Yes Code(s): I10 - ESSENTIAL (PRIMARY) HYPERTENSION (3) Cardiac murmur Assessment/Plan: Patient has systolic cardiac murmur in aortic area but no significant hemodynamic abnormality, evaluated by cardiology consult cleared for surgery. Problems reviewed: Yes Code(s): R01.1 - CARDIAC MURMUR, UNSPECIFIED (4) Anxiety Assessment/Plan: Continue PRN lorazepam. Problems reviewed: Yes Code(s): F41.9 - ANXIETY DISORDER, UNSPECIFIED
[2019-08-31] MEDS ORDERED: MORPHINE SULFATE 2 MG/ML VIAL ONE (09:59)
[2019-08-31] MEDS ORDERED: VALSARTAN 80 MG TABLET (UD) PO SCH (10:00)
--- NOTE | 2019-08-31 10:07 | ECHO ---
Name: RAUDEL ARTEAGA Exam:Adult Echocardiogram Study Date: 08/31/2019 09:25 AM Age: 88 yrs Height: 63 in Weight: 129 lb BSA: 1.6 m2 MMode/2D Measurements & Calculations IVSd: 1.6 cm Ao root diam: 2.7 cm LVIDd: 2.7 cm LA dimension: 2.3 cm LVIDs: 2.1 cm ACS: 1.4 cm LVPWd: 1.3 cm EDV(Teich): 26.0 ml LVOT diam: 1.6 cm ESV(Teich): 14.8 ml Doppler Measurements & Calculations TR max duglas: 165.6 cm/sec PA V2 max: 98.3 cm/sec TR max P.0 mmHg PA max P.9 mmHg Procedure A complete two-dimensional transthoracic echocardiogram was performed (2D, M-mode, Doppler and color flow Doppler). There was technical limitations during this study due to uncooperative patient. Left Ventricle There is severe concentric left ventricular hypertrophy. Left ventricular systolic function is normal . Ejection Fraction = 65%. E/A reversal consistent with but not diagnostic of poor LV compliance. The l eft ventricular wall motion is normal. Right Ventricle The right ventricle is normal in size and function. Atria Normal left and right atrial size and function. Mitral Valve There is mild mitral annular calcification. There is mild mitral regurgitation. Tricuspid Valve The tricuspid valve is normal in structure and function. There is trace tricuspid regurgitation. Ther e was insufficient TR detected to calculate RV systolic pressure. Aortic Valve There is mild to moderate aortic valve thickening. Mild aortic regurgitation. Pulmonic Valve The pulmonic valve is not well visualized. Great Vessels The aortic root is not well visualized but is probably normal size. Pericardium/Pleura There is no pericardial effusion. There is no pleural effusion. Interpretation Summary There is severe concentric left ventricular hypertrophy. Left ventricular systolic function is normal. Ejection Fraction = 65%. There is mild mitral regurgitation. There is mild mitral annular calcification. There is trace tricuspid regurgitation. There is mild to moderate aortic valve thickening. Mild aortic regurgitation. MD Guru Mcgarry 08/31/2019 10:06 AM
[2019-08-31] MEDS: amLODIPine BESYLATE 10 MG TABLET (FP) PO SCH (10:40)
[2019-08-31] MEDS: VALSARTAN 80 MG TABLET (UD) PO SCH (10:40)
[2019-08-31] MEDS: SERTRALINE HCL 25 MG TABLET (FP) PO SCH (10:40)
[2019-08-31] MEDS: MORPHINE SULFATE 2 MG/ML VIAL IVPUSH PRN ×2 (10:40→20:05)
[2019-08-31] MEDS ORDERED: LORazepam 2 MG/ML SDV VIAL IVPUSH ONE ×2 (10:52→20:56)
[2019-08-31] MEDS ORDERED: LORazepam 2 MG/ML SDV VIAL ONE (11:15)
--- NOTE | 2019-08-31 12:48 | CON.CARD ---
Consult Consult Specialty:: Cardiology Referred by:: Patient of Dr. Woody Arias Reason for Consultation:: Cardiac evaluation - History of Present Illness Chief Complaint: Fall with hip fracture History of Present Illness: Patient is an 88 year old female with underlying history of NIDDM, acute on chronic LV diastolic failure, HTN and depression who presented to ED with right hip pain after what appears to be a fall in her driveway and was found on the ground on her right side near her car. Bystander helped her get to the hospial after EMS was called. Right hip xray revealed fracture. She is awaiting possible surgery. She has altered mental status today, possible due to sedation or pain meds. History was obtained via her daughter and medical record. She has had unsteady gait. She recently saw Dr. Arias and was also found that she has been non-compliant with medications. She denies chest pain, SOB or palpitations. She denies fever or chills. She denies headache. She denies nausea , vomiting, diarrhea or abdominal pain. She has been restarted on medications recently by Dr. Arias. - History Source History Provided By: Family Member, Medical Record Limitations to Obtaining History: Clinical Condition - Past Medical History Cardio/Vascular: Yes: HTN Endocrine: Yes: Diabetes Mellitus - Past Surgical History Past Surgical History: Yes: None - Alcohol/Substance Use Hx Alcohol Use: No - Smoking History Smoking history: Never smoked Have you smoked in the past 12 months: No - Social History Usual Living Arrangement: Alone Home Medications - Allergies Allergies/Adverse Reactions: Allergies Allergy/AdvReac Type Severity Reaction Status Date / Time No Known Allergies Allergy Verified 08/30/19 12:37 - Home Medications Home Medications: Ambulatory Orders Amlodipine Besylate 10 mg PO DAILY #30 tablet 09/29/18 Aspirin Coated [Ecotrin -] 81 mg PO DAILY #30 tablet.ec 09/29/18 Metformin HCl [Glucophage] 500 mg PO BID #60 tablet 09/29/18 Miscellaneous Medical Supply [Glucometer Test Strips #100] 1 each .ROUTE ACHS # 1 box 09/29/18 Nitrofurantoin Monohyd/M-Cryst [Macrobid -] 100 mg PO BID #14 capsule 09/29/18 Olmesartan Medoxomil 40 mg PO DAILY #30 tablet 09/29/18 Sertraline HCl 25 mg PO DAILY #30 tablet 09/29/18 Valsartan 80 mg PO DAILY 08/30/19 Family Medical History Family Hx Cancer: Mother (Leukemia) Review of Systems - Review of Systems Constitutional: denies: Chills, Fever Cardiovascular: denies: Chest Pain, Palpitations, Shortness of Breath Respiratory: denies: Cough, Hemoptysis, Orthopnea, PND, SOB, SOB on Exertion Gastrointestinal: denies: Abdominal Pain, Diarrhea, Melena, Nausea, Rectal Bleeding, Vomiting Neurological: denies: Dizziness, Headache, Seizure, Syncope Vital Signs: Vital Signs Temperature 98.2 F 08/31/19 10:00 Pulse Rate 108 H 08/31/19 10:00 Respiratory Rate 18 08/31/19 10:00 Blood Pressure 108/72 08/31/19 10:00 O2 Sat by Pulse Oximetry (%) 96 08/31/19 06:52 Neck: Yes: Supple Respiratory: Yes: Regular, CTA Bilaterally Gastrointestinal: Yes: Normal Bowel Sounds, Soft. No: Tenderness Cardiovascular: Yes: Regular Rate and Rhythm JVD: No PMI: Non-Displaced Heart Sounds: Yes: S1, S2 Murmur: Yes: Systolic Murmur, Grade 1 Edema: No - Other Data Labs, Other Data: CBC, BMP 08/31/19 06:15 08/31/19 05:10 INR, PTT INR 1.08 (0.83-1.09) 08/31/19 05:10 Troponin, BNP 08/30/19 08/30/19 08/31/19 13:10 18: 05:10 Troponin I 0.07 H 0.08 H B-Natriuretic Peptide 1288.2 H Laboratory Results - last 24 hr 08/30/19 08/30/19 08/30/19 13:10 13:10 13:10 WBC 11.5 H RBC 4.49 Hgb 12.3 Hct 36.8 MCV 82.1 MCH 27.5 MCHC 33.5 RDW 13.2 Plt Count 210 D MPV 9.8 D Absolute Neuts (auto) 9.2 H Neutrophils % 80.0 D Lymphocytes % 13.8 D Monocytes % 5.1 Eosinophils % 0.6 D Basophils % 0.5 Nucleated RBC % 0 PT with INR INR PTT (Actin FS) Sodium 137 Potassium 4.9 Chloride 104 Carbon Dioxide 23 Anion Gap 10 BUN 16.6 Creatinine 1.2 Est GFR (CKD-EPI)AfAm 47.39 Est GFR (CKD-EPI)NonAf 40.89 POC Glucometer Random Glucose 395 H Hemoglobin A1c % Calcium 9.5 Phosphorus Magnesium Total Bilirubin 0.5 AST 20 ALT 21 Alkaline Phosphatase 76 Creatine Kinase 59 Troponin I 0.07 H B-Natriuretic Peptide Total Protein 6.9 Albumin 3.6 Triglycerides Cholesterol Total LDL Cholesterol HDL Cholesterol TSH 0.70 Blood Type Antibody Screen 08/31/19 08/31/19 08/31/19 05:10 06:15 06:15 WBC 10.1 H RBC 4.08 Hgb 11.3 Hct 33.6 MCV 82.4 MCH 27.7 MCHC 33.6 RDW 13.1 Plt Count 206 MPV 10.3 Absolute Neuts (auto) 7.4 Neutrophils % 73.3 Lymphocytes % 16.6 D Monocytes % 9.0 Eosinophils % 0.3 Basophils % 0.8 Nucleated RBC % 0 PT with INR INR PTT (Actin FS) Sodium 141 Potassium 3.8 Chloride 109 H Carbon Dioxide 24 Anion Gap 9 BUN 16.6 Creatinine 0.9 Est GFR (CKD-EPI)AfAm 67.10 Est GFR (CKD-EPI)NonAf 57.90 POC Glucometer Random Glucose 205 H Hemoglobin A1c % 13.0 H Calcium 9.3 Phosphorus 2.9 Magnesium 1.8 Total Bilirubin 0.8 AST 16 ALT 19 Alkaline Phosphatase 60 Creatine Kinase Troponin I B-Natriuretic Peptide 1288.2 H Total Protein 6.4 Albumin 3.2 L Triglycerides 130 Cholesterol 177 Total LDL Cholesterol 96 HDL Cholesterol 60 TSH Blood Type Antibody Screen Normal sinus rhythm with incomplete RBBB Echo: Report Reviewed (Normal LVEF, mild AR, mild MR, trace TR) Imaging - Results Chest X-ray: Report Reviewed (Unremarkable) X-ray: Report Reviewed (Right hip fracture) Cat Scan: Report Reviewed (Head CT unremarkable) EKG: Report Reviewed Problem List - Problems (1) Diabetes mellitus Code(s): E11.9 - TYPE 2 DIABETES MELLITUS WITHOUT COMPLICATIONS (2) Hip fracture, right Code(s): S72.001A - FRACTURE OF UNSP PART OF NECK OF RIGHT FEMUR, INIT (3) Mitral regurgitation Code(s): I34.0 - NONRHEUMATIC MITRAL (VALVE) INSUFFICIENCY Qualifiers: Cardiac valve disease etiology: nonrheumatic Qualified Code(s): I34.0 - Nonrheumatic mitral (valve) insufficiency (4) Aortic regurgitation Code(s): I35.1 - NONRHEUMATIC AORTIC (VALVE) INSUFFICIENCY Qualifiers: Cardiac valve disease etiology: nonrheumatic Qualified Code(s): I35.1 - Nonrheumatic aortic (valve) insufficiency (5) Hypertension Code(s): I10 - ESSENTIAL (PRIMARY) HYPERTENSION Qualifiers: Hypertension type: essential hypertension Qualified Code(s): I10 - Essential (primary) hypertension Assessment/Plan 1. Post fall resulting in right hip fracture 2. Demand ischemia 3. HTN 4. Diabetes Mellitus 5. Mitral valve regurgitation 6. Aortic valve regurgitation 7. Non-compliant PLAN: 1. Continue Diovan 80 mg QD and Amlodipine 10 mg QD as tolerated 2. No absolute contraindication for hip surgery in view of absence of ischemic symptoms, decompensated congestive heart failure or malignant arrhythmia 3. Echocardiography report noted 4. DM management 5. Trend troponin 6. Monitor mental status Further plans are to follow Shyam Paris MD
[2019-08-31] MEDS ORDERED: INSULIN (LEVEMIR) 100 UNITS/ML UNITS SQ ONE ×2 (13:39→15:12)
[2019-08-31] MEDS ORDERED: HEPARIN NA (PORCINE) 5,000 UNITS/ML 1ML VIAL SQ ONE (13:45)
[2019-08-31] MEDS ORDERED: HEPARIN NA (PORCINE) 5,000 UNITS/ML 1ML VIAL ONE (15:11)
--- NOTE | 2019-08-31 17:12 | CONSULT ---
Consult Consult Specialty:: Nephrology Reason for Consultation:: CKD - History of Present Illness Chief Complaint: s/p fall History of Present Illness: Pt is an 88 year old female with pmhx of dm, chf, htn, depression who presents after a fall. She was found to have abnormal GFR and I was called to evaluate her. She was found to have a right femoral fracture. She has history of poorly controlled DM. Family are at bedside and assisted with history. She denies history of CKD. She denies nsaid use. - History Source History Provided By: Patient - Past Medical History Cardio/Vascular: Yes: HTN Endocrine: Yes: Diabetes Mellitus - Past Surgical History Past Surgical History: Yes: None - Alcohol/Substance Use Hx Alcohol Use: No - Smoking History Smoking history: Never smoked Have you smoked in the past 12 months: No - Social History Usual Living Arrangement: Alone Home Medications - Allergies Allergies/Adverse Reactions: Allergies Allergy/AdvReac Type Severity Reaction Status Date / Time No Known Allergies Allergy Verified 08/30/19 12:37 - Home Medications Home Medications: Ambulatory Orders Amlodipine Besylate 10 mg PO DAILY #30 tablet 09/29/18 Aspirin Coated [Ecotrin -] 81 mg PO DAILY #30 tablet.ec 09/29/18 Metformin HCl [Glucophage] 500 mg PO BID #60 tablet 09/29/18 Miscellaneous Medical Supply [Glucometer Test Strips #100] 1 each .ROUTE ACHS # 1 box 09/29/18 Nitrofurantoin Monohyd/M-Cryst [Macrobid -] 100 mg PO BID #14 capsule 09/29/18 Olmesartan Medoxomil 40 mg PO DAILY #30 tablet 09/29/18 Sertraline HCl 25 mg PO DAILY #30 tablet 09/29/18 Valsartan 80 mg PO DAILY 08/30/19 Family Medical History Family History: Denies Review of Systems - Review of Systems Constitutional: reports: Malaise Eyes: reports: No Symptoms HENT: reports: No Symptoms Neck: reports: No Symptoms Cardiovascular: reports: No Symptoms Respiratory: reports: No Symptoms Gastrointestinal: reports: No Symptoms Genitourinary: reports: No Symptoms Musculoskeletal: reports: Other (hip pain) Neurological: reports: No Symptoms Endocrine: reports: No Symptoms Hematology/Lymphatic: reports: No Symptoms Psychiatric: reports: No Symptoms, Hallucinations Physical Exam Vital Signs: Vital Signs Temperature 98.4 F 08/31/19 15:14 Pulse Rate 80 08/31/19 15:14 Respiratory Rate 18 08/31/19 15:14 Blood Pressure 131/47 L 08/31/19 15:14 O2 Sat by Pulse Oximetry (%) 96 08/31/19 06:52 Constitutional: Yes: Calm Eyes: Yes: Conjunctiva Clear HENT: Yes: Atraumatic Neck: Yes: Supple Cardiovascular: Yes: S1, S2 Respiratory: Yes: CTA Bilaterally Gastrointestinal: Yes: Soft Renal/: Yes: WNL Musculoskeletal: Yes: WNL Edema: No Neurological: Yes: Oriented Psychiatric: Yes: Oriented Labs: CBC, BMP 08/31/19 06:15 08/31/19 05:10 Laboratory Tests 08/30/19 08/30/19 08/30/19 13:10 13:10 18:20 Creatinine 1.2 Est GFR (CKD-EPI)NonAf 40.89 Troponin I 0.07 H 0.08 H B-Natriuretic Peptide 08/31/19 05:10 Creatinine Est GFR (CKD-EPI)NonAf Troponin I B-Natriuretic Peptide 1288.2 H Imaging - Results X-ray: Report Reviewed Problem List - Problems (1) Hip fracture, right Code(s): S72.001A - FRACTURE OF UNSP PART OF NECK OF RIGHT FEMUR, INIT (2) Hypertension Code(s): I10 - ESSENTIAL (PRIMARY) HYPERTENSION Qualifiers: Hypertension type: essential hypertension Qualified Code(s): I10 - Essential (primary) hypertension Assessment/Plan Current Medications Generic Name Dose Route Start Last Admin Trade Name Freq PRN Reason Stop Dose Admin Amlodipine Besylate 10 mg 08/30/19 17:30 08/31/19 10:40 Norvasc - PO 10 mg DAILY [facility] Administration Sodium Chloride 1,000 mls @ 42 mls/hr 08/30/19 17:30 08/30/19 19:41 Normal Saline - IV 42 mls/hr ASDIR [facility] Administration Insulin Aspart 1 vial 08/30/19 22:00 08/31/19 12:53 Novolog Vial Sliding Scale - SQ 8 unit ACHS [facility] Administration Protocol Morphine Sulfate 2 mg 08/30/19 17:20 08/31/19 10:40 Morphine Sulfate IVPUSH 2 mg Q4H PRN Administration PAIN LEVEL 4 - 6 Sertraline HCl 25 mg 08/31/19 10:00 08/31/19 10:40 Zoloft - PO 25 mg DAILY [facility] Administration Valsartan 80 mg 08/31/19 10:00 08/31/19 10:40 Diovan - PO 80 mg DAILY [facility] Administration Impression 1. azotemia/dehydration 2. dm 3. hip fracture 4. htn 5. s/p fall Plan - check ua - gfr improved with fluids - avoid nsaids - no acute change in management
[2019-08-31] MEDS: SODIUM CHLORIDE 1,000 ML IV SCH (20:06)
[2019-09-01 01:07] LABS: EPI CELLS 1.4 /HPF (0-5/HPF); HYALINE CASTS 48 /lpf (0-8); URINE APPEARANCE CLOUDY; URINE BACTERIA 2165.7 /hpf (NEGATIVE); URINE BILIRUBIN NEGATIVE (NEGATIVE); URINE COLOR YELLOW; URINE GLUCOSE (UA) 3+ (NEGATIVE); URINE KETONE 1+ (NEGATIVE); URINE LEUK ESTERASE 1+ (NEGATIVE); URINE NITRITE POSITIVE (NEGATIVE); URINE PROTEIN 1+ (NEGATIVE); URINE RBC 3 /hpf (0-4); URINE UROBILINOGEN 0.2 mg/dL (0.2-1.0); URINE WBC 134 /hpf (0-5)
[2019-09-01] MEDS: MORPHINE SULFATE 2 MG/ML VIAL IVPUSH PRN ×2 (06:24→23:53)
[2019-09-01] MEDS: INSULIN SLIDING SCALE (NOVOLOG) 1 VIAL SQ SCH ×3 (06:56→18:41)
--- NOTE | 2019-09-01 07:21 | PN ---
Physical Exam: SUBJECTIVE: Patient seen and examined at bed side , nurses reports some agitation and delirium , pain is controlled , seen by ortho , for OR today , NPO since med night OBJECTIVE: Vital Signs Period Temp Pulse Resp BP Sys/Powers Pulse Ox Last 24 Hr 98.2 F-98.9 F 79-108 18-18 108-148/47-80 95-98 GENERAL:confused HEAD: NC/AT EYES: Pupils equal, round and reactive to light, extraocular movements intact, EARS, NOSE, THROAT: dry mucous membranes. NECK: Normal range of motion, supple LUNGS: Breath sounds equal, clear to auscultation bilaterally. No wheezes, and no crackles. No accessory muscle use. HEART: Regular rate and rhythm, normal S1 and S2,4/6 systolic murmur all over RUSB , LUSB radiated to neck ABDOMEN: Soft, nontender, not distended, normoactive bowel sounds, UPPER EXTREMITIES: 2+ pulses, warm, well-perfused. No cyanosis. No clubbing. No peripheral edema. LOWER EXTREMITIES: 2+ pulses, warm, well-perfused. No calf tenderness. No peripheral edema. right leg is shorter and externally rotated , +2 DP, left leg FROM proximal and distal , lright leg limited ROM due to pain NEUROLOGICAL: no focal deficit . Normal speech. gait not observed PSYCHIATRIC: Cooperative. SKIN: Warm, dry, normal turgor, Laboratory Results - last 24 hr 08/31/19 08/31/19 08/31/19 05:10 05:10 06:15 WBC 10.1 H RBC 4.08 Hgb 11.3 Hct 33.6 MCV 82.4 MCH 27.7 MCHC 33.6 RDW 13.1 Plt Count 206 MPV 10.3 Absolute Neuts (auto) 7.4 Neutrophils % 73.3 Lymphocytes % 16.6 D Monocytes % 9.0 Eosinophils % 0.3 Basophils % 0.8 Nucleated RBC % 0 PT with INR 12.80 INR 1.08 PTT (Actin FS) 31.3 Sodium 141 Potassium 3.8 Chloride 109 H Carbon Dioxide 24 Anion Gap 9 BUN 16.6 Creatinine 0.9 Est GFR (CKD-EPI)AfAm 67.10 Est GFR (CKD-EPI)NonAf 57.90 POC Glucometer Random Glucose 205 H Hemoglobin A1c % Calcium 9.3 Phosphorus 2.9 Magnesium 1.8 Total Bilirubin 0.8 AST 16 ALT 19 Alkaline Phosphatase 60 Troponin I B-Natriuretic Peptide 1288.2 H Total Protein 6.4 Albumin 3.2 L Triglycerides 130 Cholesterol 177 Total LDL Cholesterol 96 HDL Cholesterol 60 Urine Color Urine Appearance Urine pH Ur Specific [place] Urine Protein Urine Glucose (UA) Urine Ketones Urine Blood Urine Nitrite Urine Bilirubin Urine Urobilinogen Ur Leukocyte Esterase Urine WBC (Auto) Urine RBC (Auto) Urine Casts (Auto) U Epithel Cells (Auto) Urine Bacteria (Auto) U Random Total Protein Urine Creatinine Protein/Creatinin Ratio 08/31/19 08/31/19 08/31/19 06:15 12:34 14:45 WBC RBC Hgb Hct MCV MCH MCHC RDW Plt Count MPV Absolute Neuts (auto) Neutrophils % Lymphocytes % Monocytes % Eosinophils % Basophils % Nucleated RBC % PT with INR INR PTT (Actin FS) Sodium Potassium Chloride Carbon Dioxide Anion Gap BUN Creatinine Est GFR (CKD-EPI)AfAm Est GFR (CKD-EPI)NonAf POC Glucometer 339 Random Glucose Hemoglobin A1c % 13.0 H Calcium Phosphorus Magnesium Total Bilirubin AST ALT Alkaline Phosphatase Troponin I 0.05 B-Natriuretic Peptide Total Protein Albumin Triglycerides Cholesterol Total LDL Cholesterol HDL Cholesterol Urine Color Urine Appearance Urine pH Ur Specific [place] Urine Protein Urine Glucose (UA) Urine Ketones Urine Blood Urine Nitrite Urine Bilirubin Urine Urobilinogen Ur Leukocyte Esterase Urine WBC (Auto) Urine RBC (Auto) Urine Casts (Auto) U Epithel Cells (Auto) Urine Bacteria (Auto) U Random Total Protein Urine Creatinine Protein/Creatinin Ratio 08/31/19 08/31/19 09/01/19 17:02 21:24 00:00 WBC RBC Hgb Hct MCV MCH MCHC RDW Plt Count MPV Absolute Neuts (auto) Neutrophils % Lymphocytes % Monocytes % Eosinophils % Basophils % Nucleated RBC % PT with INR INR PTT (Actin FS) Sodium Potassium Chloride Carbon Dioxide Anion Gap BUN Creatinine Est GFR (CKD-EPI)AfAm Est GFR (CKD-EPI)NonAf POC Glucometer 138 186 Random Glucose Hemoglobin A1c % Calcium Phosphorus Magnesium Total Bilirubin AST ALT Alkaline Phosphatase Troponin I B-Natriuretic Peptide Total Protein Albumin Triglycerides Cholesterol Total LDL Cholesterol HDL Cholesterol Urine Color Yellow Urine Appearance Cloudy Urine pH 5.0 Ur Specific [place] 1.024 Urine Protein 1+ H Urine Glucose (UA) 3+ H Urine Ketones 1+ H Urine Blood Trace Urine Nitrite Positive H Urine Bilirubin Negative Urine Urobilinogen 0.2 Ur Leukocyte Esterase 1+ H Urine WBC (Auto) 134 Urine RBC (Auto) 3 Urine Casts (Auto) 48 U Epithel Cells (Auto) 1.4 Urine Bacteria (Auto) 2165.7 U Random Total Protein Urine Creatinine Protein/Creatinin Ratio 09/01/19 09/01/19 00:00 06:42 WBC RBC Hgb Hct MCV MCH MCHC RDW Plt Count MPV Absolute Neuts (auto) Neutrophils % Lymphocytes % Monocytes % Eosinophils % Basophils % Nucleated RBC % PT with INR INR PTT (Actin FS) Sodium Potassium Chloride Carbon Dioxide Anion Gap BUN Creatinine Est GFR (CKD-EPI)AfAm Est GFR (CKD-EPI)NonAf POC Glucometer 202 Random Glucose Hemoglobin A1c % Calcium Phosphorus Magnesium Total Bilirubin AST ALT Alkaline Phosphatase Troponin I B-Natriuretic Peptide Total Protein Albumin Triglycerides Cholesterol Total LDL Cholesterol HDL Cholesterol Urine Color Urine Appearance Urine pH Ur Specific [place] Urine Protein Urine Glucose (UA) Urine Ketones Urine Blood Urine Nitrite Urine Bilirubin Urine Urobilinogen Ur Leukocyte Esterase Urine WBC (Auto) Urine RBC (Auto) Urine Casts (Auto) U Epithel Cells (Auto) Urine Bacteria (Auto) U Random Total Protein 57.5 H Urine Creatinine 166.0 H Protein/Creatinin Ratio 0.3 Active Medications Generic Name Dose Route Start Last Admin Trade Name Freq PRN Reason Stop Dose Admin Amlodipine Besylate 10 mg 08/30/19 17:30 08/31/19 10:40 Norvasc - PO 10 mg DAILY [facility] Administration Sodium Chloride 1,000 mls @ 42 mls/hr 08/30/19 17:30 08/31/19 20:06 Normal Saline - IV 42 mls/hr ASDIR [facility] Administration Insulin Aspart 1 vial 08/30/19 22:00 09/01/19 06:56 Novolog Vial Sliding Scale - SQ Not Given ACHS [facility] Protocol Miconazole Nitrate 1 applic 09/01/19 22:00 Monistat-7 Vaginal Cream - VG 09/07/19 22:01 [facility] Morphine Sulfate 2 mg 08/30/19 17:20 09/01/19 06:24 Morphine Sulfate IVPUSH 2 mg Q4H PRN Administration PAIN LEVEL 4 - 6 Sertraline HCl 25 mg 08/31/19 10:00 08/31/19 10:40 Zoloft - PO 25 mg DAILY [facility] Administration Valsartan 80 mg 08/31/19 10:00 08/31/19 10:40 Diovan - PO 80 mg DAILY [facility] Administration CBC, BMP 09/01/19 07:20 09/01/19 07:20 ASSESSMENT/PLAN: This is a 87 year old female with a history of IDDM, HTN, diverticulosis, depression, presented with after fall on her right side found to have right hip fx and elevated trop # Right intertrochanter fx S/P fall * admit to tele * xray reviwed , order head CT * consult orthopedics , spoke with Dr schulz over the phone will see her in AM * pain control V morphin 2 mg Q 4hr * Echo was done in september 2018 wit EF 70 % and mild D chf grade II , Mild and AR , will repeat as more than 6 month * PT/PTT INR , type and screen * NPO after mid night , will feed her during the day * IV fluids gentle hydration NS @ 42 Cc/hr * cardiology consult spoke with Dr lopez will see her in AM * ortho consult Dr kevan ibrahim * No absolute contraindication for hip surgery in view of absence of ischemic symptoms, decompensated congestive heart failure or malignant arrhythmia per cardiology * intermediate to high risk patient for intermediate to high risk procedure #fall 2/2 syncope vs dehydration vs mechanical fall vs imbalance gait * head CT negative for acute pathology * echo reviewed EF 65 % , LVH , mild MR and TR and AR , normal LV function * bp monitor * PT eval after surgery * will benefit from JOELLEN #Hypertensive , non compliant with her meds * still with elevated bp, * cont valsartan 80 mg qD * cont norvasc 10mg qd hold for sytolic less than 100 #elevated troponin likely demand ischemia , no EKG changes , * trend trop * ACS unlikely; likeey demand ischemia * echo * cardiology consulted #DM , uncontrolled 2/2 non complint , A1c 13 * last hemoglobin a1c 10.repeat 13 * currently on ISS, add levimer 5 units SQ once * hold oral agents * npo after mid night #depression with suicidal ideation * on zoloft, cont # MVR And AR noted on Echo , follow up out pt #dvt ppl: per surgery Visit type - Emergency Visit Emergency Visit: Yes ED Registration Date: 08/30/19 Care time: The patient presented to the Emergency Department on the above date and was hospitalized for further evaluation of their emergent condition. - New Patient This patient is new to me today: No - Critical Care Critical Care patient: No - Discharge Referral Referred to [facility] No ATTENDING PHYSICIAN STATEMENT I saw and evaluated the patient. I reviewed the resident's note and discussed the case with the resident. I agree with the resident's findings and plan as documented. SUBJECTIVE: OBJECTIVE: ASSESSMENT AND PLAN:
[2019-09-01 08:17] LABS: BASO % 0.6 % (0-2.0); EOS % 0.6 % (0-4.5); HEMATOCRIT 29.2 % (32.4-45.2); HEMOGLOBIN 9.8 GM/dL (10.7-15.3); LYMPH % 19.1 % (8-40); MCH 27.7 pg (25.7-33.7); MCHC 33.5 g/dl (32.0-36.0); MEAN CELL VOLUME 82.8 fl (80-96); MEAN PLT VOLUME 10.6 fl (7.5-11.1); MONO % 12.2 % (3.8-10.2); NEUT % 67.5 % (42.8-82.8); PLATELET COUNT 169 K/MM3 (134-434); RBC 3.53 M/mm3 (3.60-5.2); RDW 13.3 % (11.6-15.6); WHITE BLOOD COUNT 8.5 K/mm3 (4.0-10.0)
[2019-09-01 08:32] LABS: ALBUMIN 2.9 g/dl (3.4-5.0); BILIRUBIN,TOTAL 0.8 mg/dL (0.2-1); BLOOD UREA NITROGEN 22.2 mg/dL (7-18); CALCIUM 8.9 mg/dL (8.5-10.1); POTASSIUM 3.8 mmol/L (3.5-5.1); TOT PROT 5.8 g/dl (6.4-8.2)
[2019-09-01] MEDS ORDERED: cefTRIAXone SODIUM 1 GM VIAL ONE (08:59)
[2019-09-01] MEDS ORDERED: DEXTROSE 5%-WATER - 50 ML IVPB ONE ×2 (08:59→18:42)
[2019-09-01] MEDS: amLODIPine BESYLATE 10 MG TABLET (FP) PO SCH (09:05)
[2019-09-01] MEDS: VALSARTAN 80 MG TABLET (UD) PO SCH (09:05)
[2019-09-01] MEDS: SERTRALINE HCL 25 MG TABLET (FP) PO SCH (09:05)
--- NOTE | 2019-09-01 09:51 | PN ---
Teaching Attending Note Name of Resident: Eduardo Rahman ATTENDING PHYSICIAN STATEMENT I saw and evaluated the patient. I reviewed the resident's note and discussed the case with the resident. I agree with the resident's findings and plan as documented. SUBJECTIVE:C/O Hip pain scheduled for surgery OBJECTIVE: Vital Signs Temperature 98.9 F 09/01/19 06:00 Pulse Rate 94 H 09/01/19 06:00 Respiratory Rate 18 09/01/19 06:00 Blood Pressure 148/61 09/01/19 06:00 O2 Sat by Pulse Oximetry (%) 95 08/31/19 21:00 General: Elderly female, comfortable, not in distress HEENT; mucous membranes moist, no anemia, no jaundice, PERRLA, no nystagmus Neck: No JVD, supple, no bruit, thyroid palpably normal, normal carotid pulsations. Chest: Nontender, clear to auscultation bilaterally CVS: S1-S2 systolic murmur no/gallop/rub Abdomen: Nondistended, soft, bowel sounds present. Extremities: Right hip pain, right lower extremity laterally rotated no edema., No calf tenderness, pulses present ROTARY FURNACE OPERATOR: AO X3 , no gross motor sensory deficit CBC, BMP 09/01/19 07:20 09/01/19 07:20 Active Medications Amlodipine Besylate (Norvasc -) 10 mg PO DAILY COUNT INCLUDES [facility] Last Admin: 09/01/19 09:05 Dose: Not Given Sodium Chloride (Normal Saline -) 1,000 mls @ 42 mls/hr IV ASDIR COUNT INCLUDES [facility] Last Admin: 08/31/19 20:06 Dose: 42 mls/hr Ceftriaxone Sodium 1 gm/ (Dextrose) 50 mls @ 100 mls/hr IVPB DAILY [facility]CLUDES [facility] Last Admin: 09/01/19 09:05 Dose: 100 mls/hr Insulin Aspart (Novolog Vial Sliding Scale -) 1 vial SQ ACHS COUNT [facility]CLUDES [facility]; Protocol Last Admin: 09/01/19 06:56 Dose: Not Given Miconazole Nitrate (Monistat-7 Vaginal Cream -) 1 applic VG HS COUNT INCLUDES [facility] Stop: 09/07/19 22:01 Morphine Sulfate (Morphine Sulfate) 2 mg IVPUSH Q4H PRN PRN Reason: PAIN LEVEL 4 - 6 Last Admin: 09/01/19 06:24 Dose: 2 mg Sertraline HCl (Zoloft -) 25 mg PO DAILY [facility]CLUD[facility] Last Admin: 09/01/19 09:05 Dose: Not Given Valsartan (Diovan -) 80 mg PO DAILY [facility]CLUD[facility] Last Admin: 09/01/19 09:05 Dose: Not Given ASSESSMENT AND PLAN: 88-year-old female history of diastolic heart failure, hypertension depression presented to ED after sustaining a mechanical fall with right femoral neck fracture evaluated by orthopedics, recommended surgery tomorrow. Impression: Closed fracture right hip, patient is scheduled for surgery we will follow-up surgery recommendations. Problem List - Problems (1) Hip fracture, right Assessment/Plan: Standing a mechanical fall, evaluate with orthopedics recommended surgery at after clearance from cardiology, they cleared by cardiology, pain control, non- weightbearing, n.p.o. after midnight for surgery in the morning, SCD for DVT prophylaxis , today scheduled for the surgery Problems reviewed: Yes Code(s): S72.001A - FRACTURE OF UNSP PART OF NECK OF RIGHT FEMUR, INIT (2) Hypertension Assessment/Plan: Continue home medication at present blood pressure is well controlled, continue amlodipine and valsartan Problems reviewed: Yes Code(s): I10 - ESSENTIAL (PRIMARY) HYPERTENSION (3) Cardiac murmur Assessment/Plan: Patient has systolic cardiac murmur in aortic area but no significant hemodynamic abnormality, echo shows aortic valve thickening moderate TR and MR: Evaluated by cardiology consult cleared for surgery. Problems reviewed: Yes Code(s): R01.1 - CARDIAC MURMUR, UNSPECIFIED (4) Anxiety Assessment/Plan: Continue PRN lorazepam. Code(s): F41.9 - ANXIETY DISORDER, UNSPECIFIED (5) UTI (urinary tract infection) Assessment/Plan: On IV ceftriaxone F/u culture Problems reviewed: Yes Code(s): N39.0 - URINARY TRACT INFECTION, SITE NOT SPECIFIED
[2019-09-01] MEDS ORDERED: CEFTRIAXONE 1 GM in DEXTROSE 5%-WATER - 50 ML IVPB SCH (10:00)
[2019-09-01] MEDS ORDERED: ceFAZolin SODIUM 1 GM VIAL ONE ×2 (10:39→18:42)
[2019-09-01] MEDS ORDERED: MIDAZOLAM HCL 2 MG/2 ML SINGLE DOSE VIAL ONE (10:59)
[2019-09-01] MEDS ORDERED: morphine SULFATE/PF 0.5 MG/ML (2cc Syringe - QUVA) ONE (11:06)
[2019-09-01] MEDS ORDERED: NITROFURANTOIN MACROCRYSTAL 50 MG CAPSULE (FP) PO SCH (12:00)
--- NOTE | 2019-09-01 12:18 | OP ---
Operative Note - Note: Operative Date: 09/01/19 ([facility]) Pre-Operative Diagnosis: right IT fx Operation: right IM gamma nail Post-Operative Diagnosis: Same as Pre-op Surgeon: Francisco J Montano Lawyer: Diallo Montanez Anesthesiologist/SUBMARINE CABLE EQUIPMENT TECHNICIAN: Natty Pinon Anesthesia: Spinal Estimated Blood Loss (mls): 50
[2019-09-01] MEDS ORDERED: NALOXONE HCL 0.4 MG/ML VIAL IVPUSH PRN (13:21)
[2019-09-01] MEDS ORDERED: ONDANSETRON 4 MG/2 ML VIAL IVPUSH PRN ×2 (13:21)
[2019-09-01] MEDS ORDERED: oxyCODONE HCL 5 MG TABLET PO PRN ×2 (13:21)
[2019-09-01] MEDS ORDERED: morphine SULFATE/PF 0.5 MG/ML (2cc Syringe - QUVA) IT ONE (13:21)
--- NOTE | 2019-09-01 14:25 | SPEC ---
DATE OF OPERATION: 09/01/2019 PREOPERATIVE DIAGNOSIS: Right femur intertrochanteric hip fracture. POSTOPERATIVE DIAGNOSIS: Right femur intertrochanteric hip fracture. PROCEDURE: Right Gamma nail, intramedullary nail, right femur. SURGEON: Francisco J Montano MD PRODUCTION SHIFT SUPERVISOR: VANI Vega ANESTHESIA: Brittany Sanchez MD; Natty Pinon, REF-CRN. Spinal anesthesia with minimal sedation. DRAINS: None. COMPLICATIONS: None. BLOOD LOSS: Minimal. BLOOD GIVEN: None. FLUID REPLACEMENT: 500 mL. INDICATIONS: This patient is an 88-year-old female with a preoperative diagnosis of a displaced right intertrochanteric hip fracture. After understanding the potential risks, complications, alternatives, and benefits to surgical versus nonsurgical treatment, the patient and her family elected to undergo this procedure. Her daughter acted as her healthcare proxy, as the patient's mental status deteriorated over the past 24 hours and she was not able to make medical decisions on her own. All questions and concerns were addressed for both the patient and her family member prior to the surgery. PROCEDURE: The patient was brought to the operating room. A spinal Duramorph was done. Peripheral IV placed, IV sedation given. One gram of IV Ancef was given. General anesthesia was induced. The patient had ample Webril placed around the peroneal post in both ankles. The patient was placed onto the fracture table with a slight longitudinal traction and internal rotation. X-rays were taken documenting excellent reduction of the fracture in the AP and lateral planes. Next, an incision was made over the proximal aspect of the greater trochanter. Subcutaneous hemostasis was achieved with a Bovie cautery, dissection done through the lateral fascia to the top of the greater trochanter. A Kidd elevator was used to take off the soft tissue from the starting point. Under direct visualization a partially threaded guide-wire was placed through the standard starting position, into the proximal femur, passed the fracture fragment into the medullary canal. It was documented to be in excellent position in AP, lateral and multiple oblique planes. Next, we used the proximal 17 mm cannulated reamer and put in a standard titanium Adeola Gamma 3 125 degree, 180 mm trochanteric nail. This was put in cannulated fashion to appropriate depth and using the external guide in a standard fashion, first using external jig, using a threaded guide-wire, replaced the lag screw, guide pin to the lateral aspect of the femur. The prosthesis and up to the femoral neck and head, looked to be in excellent position in a center central position, perhaps slightly posterior and slightly inferior in both AP and lateral planes. We measured it at an 100 mm screw. The cannulated drill was used to drill it to this leg and then we put in an 100 mm titanium lag screw. We achieved excellent compression and overall the position of the hardware in the fracture fragments looked excellent. We locked it in place with a proximal set screw, we altered the external jig to the static position and using the standard technique put in a distal interlocking screw under direct visualization of 35 mm in length. This locked the nail distally. We removed the external jig. We repeated x-rays in AP, lateral and multiple oblique planes and overall I was quite happy with the position of the fracture reduction, the length of the screw, the position of the hardware. Final x-rays were taken. The area was copiously irrigated and washed out. The deep fascial layer was closed with 0 Vicryl sutures. The deep dermal layer was closed with 2-0 Vicryl. Final skin approximation was done with lexx and Aquacel. The area was then washed and dried, covered with Xeroform gauze, 4 x 4 gauze, ABD and tape. Patient was taken down off the fracture table in stable condition. There were no complications during the case, it went well, everything was quite standard. Total operative time was 30 minutes. Yuval [id number]
--- NOTE | 2019-09-01 14:36 | PN ---
Progress Note, Physician History of Present Illness: Right IT fx post right IM gamma nail w/o sequelae. - Current Medication List Current Medications: Active Medications Acetaminophen (Tylenol -) 650 mg PO Q6H [facility] Amlodipine Besylate (Norvasc -) 10 mg PO DAILY [facility] Docusate Sodium (Colace -) 100 mg PO BID [facility] Enoxaparin Sodium (Lovenox -) 40 mg SQ DAILY [facility] Ceftriaxone Sodium 1 gm/ (Dextrose) 50 mls @ 100 mls/hr IVPB DAILY [facility] Sodium Chloride (Normal Saline -) 1,000 mls @ 42 mls/hr IV ASDIR [facility] Cefazolin Sodium 1 gm/ (Dextrose) 50 mls @ 100 mls/hr IVPB Q8H [facility] Stop: 09/02/19 03:29 Insulin Aspart (Novolog Vial Sliding Scale -) 1 vial SQ ACHS [facility]; Protocol Miconazole Nitrate (Monistat-7 Vaginal Cream -) 1 applic VG HS [facility] Stop: 09/07/19 22:01 Morphine Sulfate (Morphine Sulfate) 2 mg IVPUSH Q4H PRN PRN Reason: PAIN LEVEL 4 - 6 Naloxone HCl (Narcan -) 0.4 mg IVPUSH ONCE PRN PRN Reason: Sedation Ondansetron HCl (Zofran Injection) 4 mg IVPUSH ONCE PRN PRN Reason: NAUSEA Oxycodone HCl (Roxicodone -) 5 mg PO Q3H PRN PRN Reason: Mild Pain 1-3 Oxycodone HCl (Roxicodone -) 10 mg PO Q3H PRN PRN Reason: PAIN 7-10 Sertraline HCl (Zoloft -) 25 mg PO DAILY [facility] Valsartan (Diovan -) 80 mg PO DAILY [facility] - Objective Vital Signs: Vital Signs Temperature 98.9 F 09/01/19 12:20 Pulse Rate 73 09/01/19 13:45 Respiratory Rate 13 09/01/19 13:45 Blood Pressure 147/47 L 09/01/19 13:45 O2 Sat by Pulse Oximetry (%) 100 09/01/19 13:45 Constitutional: Yes: No Distress, Calm, Thin Neck: Yes: Supple Cardiovascular: Yes: Regular Rate and Rhythm Respiratory: Yes: Regular, CTA Bilaterally Gastrointestinal: Yes: Normal Bowel Sounds, Soft Edema: No Labs: CBC, BMP 09/01/19 07:20 09/01/19 07:20 INR, PTT INR 1.08 (0.83-1.09) 08/31/19 05:10 Assessment/Plan Problem List - Problems (1) Diabetes mellitus Code(s): E11.9 - TYPE 2 DIABETES MELLITUS WITHOUT COMPLICATIONS (2) Hip fracture, right Code(s): S72.001A - FRACTURE OF UNSP PART OF NECK OF RIGHT FEMUR, INIT (3) Mitral regurgitation Code(s): I34.0 - NONRHEUMATIC MITRAL (VALVE) INSUFFICIENCY Qualifiers: Cardiac valve disease etiology: nonrheumatic Qualified Code(s): I34.0 - Nonrheumatic mitral (valve) insufficiency (4) Aortic regurgitation Code(s): I35.1 - NONRHEUMATIC AORTIC (VALVE) INSUFFICIENCY Qualifiers: Cardiac valve disease etiology: nonrheumatic Qualified Code(s): I35.1 - Nonrheumatic aortic (valve) insufficiency (5) Hypertension Code(s): I10 - ESSENTIAL (PRIMARY) HYPERTENSION Qualifiers: Hypertension type: essential hypertension Qualified Code(s): I10 - Essential (primary) hypertension Echo (Normal LVEF, mild AR, mild MR, trace TR) Assessment/Plan 08/31/2019 Severe cLVH normal LVEF 65%, mild MR, AR, tr TR 1. Post fall resulting in right IT fx POD#0 right IM gamma nail 2. Demand ischemia 3. HTN 4. Diabetes Mellitus 5. Non-compliant PLAN: 1. Continue Diovan 80 mg QD and Amlodipine 10 mg QD as tolerated 2. Troponin plateaued 3. Echocardiography report noted 4. Analgesia as needed, DVT and GI prophylaxis
[2019-09-01] MEDS: SODIUM CHLORIDE 1,000 ML IV SCH (16:10)
--- NOTE | 2019-09-01 17:56 | PN ---
Progress Note, Physician History of Present Illness: Pt seen and examined at bedside. She is in recovery room. - Current Medication List Current Medications: Active Medications Acetaminophen (Tylenol -) 650 mg PO Q6H [facility] Amlodipine Besylate (Norvasc -) 10 mg PO DAILY [facility] Docusate Sodium (Colace -) 100 mg PO BID [facility] Enoxaparin Sodium (Lovenox -) 40 mg SQ DAILY [facility] Ceftriaxone Sodium 1 gm/ (Dextrose) 50 mls @ 100 mls/hr IVPB DAILY [facility] Sodium Chloride (Normal Saline -) 1,000 mls @ 42 mls/hr IV ASDIR [facility] Last Admin: 09/01/19 16:10 Dose: 0 mls Cefazolin Sodium 1 gm/ (Dextrose) 50 mls @ 100 mls/hr IVPB Q8H [facility] Stop: 09/02/19 03:29 Insulin Aspart (Novolog Vial Sliding Scale -) 1 vial SQ ACHS [facility]; Protocol Miconazole Nitrate (Monistat-7 Vaginal Cream -) 1 applic VG HS [facility] Stop: 09/07/19 22:01 Morphine Sulfate (Morphine Sulfate) 2 mg IVPUSH Q4H PRN PRN Reason: PAIN LEVEL 4 - 6 Naloxone HCl (Narcan -) 0.4 mg IVPUSH ONCE PRN PRN Reason: Sedation Ondansetron HCl (Zofran Injection) 4 mg IVPUSH ONCE PRN PRN Reason: NAUSEA Oxycodone HCl (Roxicodone -) 5 mg PO Q3H PRN PRN Reason: Mild Pain 1-3 Oxycodone HCl (Roxicodone -) 10 mg PO Q3H PRN PRN Reason: PAIN 7-10 Sertraline HCl (Zoloft -) 25 mg PO DAILY [facility] Valsartan (Diovan -) 80 mg PO DAILY [facility] - Objective Vital Signs: Vital Signs Temperature 99.6 F 09/01/19 17:35 Pulse Rate 78 09/01/19 17:35 Respiratory Rate 18 09/01/19 17:35 Blood Pressure 144/65 09/01/19 17:35 O2 Sat by Pulse Oximetry (%) 98 09/01/19 17:35 Constitutional: Yes: Calm Eyes: Yes: Conjunctiva Clear Cardiovascular: Yes: S1, S2 Gastrointestinal: Yes: Soft Genitourinary: Yes: Incontinence Edema: No Neurological: Yes: Other (drowsy) Labs: CBC, BMP 09/01/19 07:20 09/01/19 07:20 INR, PTT INR 1.08 (0.83-1.09) 08/31/19 05:10 Problem List - Problems (1) Hip fracture, right Code(s): S72.001A - FRACTURE OF UNSP PART OF NECK OF RIGHT FEMUR, INIT (2) Hypertension Code(s): I10 - ESSENTIAL (PRIMARY) HYPERTENSION Qualifiers: Hypertension type: essential hypertension Qualified Code(s): I10 - Essential (primary) hypertension Assessment/Plan Current Medications Generic Name Dose Route Start Last Admin Trade Name Freq PRN Reason Stop Dose Admin Acetaminophen 650 mg 09/01/19 13:30 Tylenol - PO Q6H [facility] Amlodipine Besylate 10 mg 09/02/19 10:00 Norvasc - PO DAILY [facility] Docusate Sodium 100 mg 09/01/19 22:00 Colace - PO BID [facility] Enoxaparin Sodium 40 mg 09/02/19 10:00 Lovenox - SQ DAILY [facility] Ceftriaxone Sodium 1 gm/ 50 mls @ 100 mls/hr 09/02/19 10:00 Dextrose IVPB DAILY [facility] Sodium Chloride 1,000 mls @ 42 mls/hr 09/01/19 12:57 09/01/19 16:10 Normal Saline - IV 0 mls ASDIR [facility] Administration Cefazolin Sodium 1 gm/ 50 mls @ 100 mls/hr 09/01/19 19:00 Dextrose IVPB 09/02/19 03:29 Q8H [facility] Insulin Aspart 1 vial 09/01/19 16:30 Novolog Vial Sliding Scale - SQ ACHS [facility] Protocol Miconazole Nitrate 1 applic 09/01/19 22:00 Monistat-7 Vaginal Cream - VG 09/07/19 22:01 HS [facility] Morphine Sulfate 2 mg 09/01/19 12:57 Morphine Sulfate IVPUSH Q4H PRN PAIN LEVEL 4 - 6 Naloxone HCl 0.4 mg 09/01/19 13:21 Narcan - IVPUSH ONCE PRN Sedation Ondansetron HCl 4 mg 09/01/19 13:21 Zofran Injection IVPUSH ONCE PRN NAUSEA Oxycodone HCl 5 mg 09/01/19 13:21 Roxicodone - PO Q3H PRN Mild Pain 1-3 Oxycodone HCl 10 mg 09/01/19 13:21 Roxicodone - PO Q3H PRN PAIN 7-10 Sertraline HCl 25 mg 09/02/19 10:00 Zoloft - PO DAILY [facility] Valsartan 80 mg 09/02/19 10:00 Diovan - PO DAILY [facility] Impression 1. azotemia/dehydration 2. dm 3. hip fracture 4. htn 5. s/p fall Plan - monitor renal function - cont fluids - send urine cultures - pt on abx - repeat ua in a few days - avoid nsaids - no acute change in management
[2019-09-01] MEDS: ACETAMINOPHEN 325 MG TABLET (FP) PO SCH (18:40)
[2019-09-01] MEDS: CEFAZOLIN 1 GM in DEXTROSE 5%-WATER - 50 ML IVPB SCH (18:47)
[2019-09-01] MEDS ORDERED: CEFAZOLIN 1 GM/D5W 50 ML IVPB SCH (19:00)
[2019-09-01] MEDS ORDERED: CEFAZOLIN 1 GM in DEXTROSE 5%-WATER - 50 ML IVPB SCH (19:00)
[2019-09-01] MEDS ORDERED: PT OWN MED DRAWER 7, Y5N ONE (21:23)
[2019-09-01] MEDS ORDERED: MICONAZOLE NITRATE 2% VAGINAL CREAM 45 GM TUBE VG SCH (22:00)
[2019-09-02] MEDS: ACETAMINOPHEN 325 MG TABLET (FP) PO SCH ×5 (00:34→23:11)
[2019-09-02] MEDS: DOCUSATE SODIUM 100 MG CAPSULE (FP) PO SCH ×3 (00:35→23:12)
[2019-09-02] MEDS: MICONAZOLE NITRATE 2% VAGINAL CREAM 45 GM TUBE VG SCH (00:35)
[2019-09-02] MEDS: INSULIN SLIDING SCALE (NOVOLOG) 1 VIAL SQ SCH ×5 (00:35→22:28)
[2019-09-02] MEDS ORDERED: LORazepam 2 MG/ML SDV VIAL IVPUSH ONE (01:10)
[2019-09-02] MEDS ORDERED: ceFAZolin SODIUM 1 GM VIAL ONE (02:18)
[2019-09-02] MEDS ORDERED: DEXTROSE 5%-WATER - 50 ML IVPB ONE ×2 (02:18→14:21)
[2019-09-02] MEDS: CEFAZOLIN 1 GM in DEXTROSE 5%-WATER - 50 ML IVPB SCH (02:30)
[2019-09-02 06:56] LABS: ALBUMIN 2.6 g/dl (3.4-5.0); BILIRUBIN,TOTAL 0.7 mg/dL (0.2-1); BLOOD UREA NITROGEN 23.9 mg/dL (7-18); CALCIUM 8.7 mg/dL (8.5-10.1); TOT PROT 5.8 g/dl (6.4-8.2)
--- NOTE | 2019-09-02 07:37 | PN ---
Physical Exam: SUBJECTIVE: Patient seen and examined at bed side , POD#1 , S/P Right hip M gamma nail pt is very agitated , sun downing , rip the IV and trying to get out of bed no fever or chills over night , haldol 2.5 and ativan 1 mg given around 10 am 1 hour apart with little improvement Urine cx with Echoli ESBL , ID consulted switch abx to ertapinem and vancomycin per ID OBJECTIVE: Vital Signs Period Temp Pulse Resp BP Sys/Powers Pulse Ox Last 24 Hr 97.5 F-99.6 F 68-97 12-19 118-159/39-80 96-100 GENERAL:confused , agitated delirious HEAD: NC/AT EYES: Pupils equal, round and reactive to light, extraocular movements intact, EARS, NOSE, THROAT: dry mucous membranes. NECK: Normal range of motion, supple LUNGS: Breath sounds equal, clear to auscultation bilaterally. No wheezes, and no crackles. No accessory muscle use. HEART: Regular rate and rhythm, normal S1 and S2,4/6 systolic murmur all over RUSB , LUSB radiated to neck ABDOMEN: Soft, nontender, not distended, normoactive bowel sounds, UPPER EXTREMITIES: 2+ pulses, warm, well-perfused. No cyanosis. No clubbing. No peripheral edema. LOWER EXTREMITIES: 2+ pulses, warm, well-perfused. No calf tenderness. No peripheral edema. right leg S/P gamma Nail IM with stitches , +2 DP, left leg FROM proximal and distal , NEUROLOGICAL: no focal deficit . PSYCHIATRIC: agitated SKIN: Warm, dry, normal turgor, Laboratory Results - last 24 hr 09/01/19 09/01/19 09/01/19 07:20 07:20 07:20 WBC 8.5 Corrected WBC (auto) RBC 3.53 L Hgb 9.8 L Hct 29.2 L MCV 82.8 MCH 27.7 MCHC 33.5 RDW 13.3 Plt Count 169 MPV 10.6 Absolute Neuts (auto) 5.7 Neutrophils % 67.5 Lymphocytes % 19.1 Monocytes % 12.2 H Eosinophils % 0.6 D Basophils % 0.6 Nucleated RBC % 0 Platelet Estimate Platelet Comment Sodium 143 Potassium 3.8 Chloride 112 H Carbon Dioxide 20 L Anion Gap 11 BUN 22.2 H Creatinine 1.0 Est GFR (CKD-EPI)AfAm 59.08 Est GFR (CKD-EPI)NonAf 50.97 POC Glucometer Random Glucose 227 H Calcium 8.9 Total Bilirubin 0.8 AST 27 ALT 19 Alkaline Phosphatase 51 Creatine Kinase 383 H Creatine Kinase Index 0.9 CK-MB (CK-2) 3.6 Troponin I 0.06 H Total Protein 5.8 L Albumin 2.9 L 09/01/19 09/02/19 09/02/19 14:16 05:25 05:25 WBC Cancelled Corrected WBC (auto) Cancelled RBC Cancelled Hgb Cancelled Hct Cancelled MCV Cancelled MCH Cancelled MCHC Cancelled RDW Cancelled Plt Count Cancelled MPV Cancelled Absolute Neuts (auto) Cancelled Neutrophils % Cancelled Lymphocytes % Cancelled Monocytes % Cancelled Eosinophils % Cancelled Basophils % Cancelled Nucleated RBC % Cancelled Platelet Estimate Cancelled Platelet Comment Cancelled Sodium 142 Potassium 4.0 Chloride 111 H Carbon Dioxide 18 L Anion Gap 12 BUN 23.9 H Creatinine 1.0 Est GFR (CKD-EPI)AfAm 59.08 Est GFR (CKD-EPI)NonAf 50.97 POC Glucometer 208 Random Glucose 295 H Calcium 8.7 Total Bilirubin 0.7 AST 34 ALT 21 Alkaline Phosphatase 52 Creatine Kinase Creatine Kinase Index CK-MB (CK-2) Troponin I Total Protein 5.8 L Albumin 2.6 L 09/02/19 06:51 WBC Corrected WBC (auto) RBC Hgb Hct MCV MCH MCHC RDW Plt Count MPV Absolute Neuts (auto) Neutrophils % Lymphocytes % Monocytes % Eosinophils % Basophils % Nucleated RBC % Platelet Estimate Platelet Comment Sodium Potassium Chloride Carbon Dioxide Anion Gap BUN Creatinine Est GFR (CKD-EPI)AfAm Est GFR (CKD-EPI)NonAf POC Glucometer 274 Random Glucose Calcium Total Bilirubin AST ALT Alkaline Phosphatase Creatine Kinase Creatine Kinase Index CK-MB (CK-2) Troponin I Total Protein Albumin Active Medications Generic Name Dose Route Start Last Admin Trade Name Freq PRN Reason Stop Dose Admin Acetaminophen 650 mg 09/01/19 13:30 09/02/19 01:41 Tylenol - PO Not Given Q6H [facility] Amlodipine Besylate 10 mg 09/02/19 10:00 Norvasc - PO DAILY [facility] Docusate Sodium 100 mg 09/01/19 22:00 09/02/19 00:35 Colace - PO Not Given BID [facility] Enoxaparin Sodium 40 mg 09/02/19 10:00 Lovenox - SQ DAILY [facility] Ceftriaxone Sodium 1 gm/ 50 mls @ 100 mls/hr 09/02/19 10:00 Dextrose IVPB DAILY [facility] Sodium Chloride 1,000 mls @ 42 mls/hr 09/01/19 12:57 09/01/19 16:10 Normal Saline - IV 0 mls ASDIR [facility] Administration Insulin Aspart 1 vial 09/01/19 16:30 09/02/19 06:52 Novolog Vial Sliding Scale - SQ 6 units ACHS [facility] Administration Protocol Miconazole Nitrate 1 applic 09/01/19 22:00 09/02/19 00:35 Monistat-7 Vaginal Cream - VG 09/07/19 22:01 Not Given [facility] Morphine Sulfate 2 mg 09/01/19 12:57 09/01/19 23:53 Morphine Sulfate IVPUSH 2 mg Q4H PRN Administration PAIN LEVEL 4 - 6 Naloxone HCl 0.4 mg 09/01/19 13:21 Narcan - IVPUSH ONCE PRN Sedation Ondansetron HCl 4 mg 09/01/19 13:21 Zofran Injection IVPUSH ONCE PRN NAUSEA Oxycodone HCl 5 mg 09/01/19 13:21 Roxicodone - PO Q3H PRN Mild Pain 1-3 Oxycodone HCl 10 mg 09/01/19 13:21 Roxicodone - PO Q3H PRN PAIN 7-10 Sertraline HCl 25 mg 09/02/19 10:00 Zoloft - PO DAILY [facility] Valsartan 80 mg 09/02/19 10:00 Diovan - PO DAILY [facility] CBC, BMP 09/02/19 07:55 09/02/19 05:25 ASSESSMENT/PLAN: This is a 87 year old female with a history of IDDM, HTN, diverticulosis, depression, presented with after fall on her right side found to have right hip fx and elevated trop # Right intertrochanter fx S/P fall S/P IM Gamma nail POD #1 * admit to tele * xray reviwed , order head CT negative for acute pathology * * pain control iV morphin 2 mg Q 4hr , Oxy 5 and 10 and fentanyl patches * Echo was done in september 2018 wit EF 70 % and mild D chf grade II , Mild and AR , will repeat as more than 6 month * resume diet * IV fluids gentle hydration NS @ 42 Cc/hr * cardiology recommendation appreciated # UTI with history f ESBL echoli consult ID switch abx to ertapinim and Vanco follow cx and sensiticity , # Dilirious 2/2 UTI vs surgery * consult psych * QTC 466 * Ativan and haldol given in AM , can Giv Atiavn low dose Q 6 hr as needed for agitation avoid haldol for now as QTC is borderline #fall 2/2 syncope vs dehydration vs mechanical fall vs imbalance gait VS UTI * head CT negative for acute pathology * echo reviewed EF 65 % , LVH , mild MR and TR and AR , normal LV function * bp monitor * PT eval after surgery * will benefit from JOELLEN #Hypertensive , non compliant with her meds * still with elevated bp, * cont valsartan 80 mg qD * cont norvasc 10mg qd hold for sytolic less than 100 #elevated troponin likely demand ischemia , no EKG changes , * trend trop * ACS unlikely; likeey demand ischemia * echo * cardiology consulted #DM , uncontrolled 2/2 non complint , A1c 13 * last hemoglobin a1c 10.repeat 13 * currently on ISS, add levimer 5 units SQ once * hold oral agents * npo after mid night #depression with suicidal ideation * on zoloft, cont # MVR And AR noted on Echo , follow up out pt #dvt ppl: per surgery # Full code Visit type - Emergency Visit Emergency Visit: Yes ED Registration Date: 08/30/19 Care time: The patient presented to the Emergency Department on the above date and was hospitalized for further evaluation of their emergent condition. - New Patient This patient is new to me today: No - Critical Care Critical Care patient: No - Discharge Referral Referred to [facility] No ATTENDING PHYSICIAN STATEMENT I saw and evaluated the patient. I reviewed the resident's note and discussed the case with the resident. I agree with the resident's findings and plan as documented. SUBJECTIVE: OBJECTIVE: ASSESSMENT AND PLAN:
[2019-09-02 08:12] LABS: BASO % 0.6 % (0-2.0); EOS % 0.2 % (0-4.5); HEMOGLOBIN 9.8 GM/dL (10.7-15.3); LYMPH % 13.1 % (8-40); MCH 27.3 pg (25.7-33.7); MCHC 32.8 g/dl (32.0-36.0); MEAN PLT VOLUME 10.3 fl (7.5-11.1); MONO % 9.2 % (3.8-10.2); NEUT % 76.9 % (42.8-82.8); PLATELET COUNT 228 K/MM3 (134-434); RBC 3.61 M/mm3 (3.60-5.2); RDW 13.3 % (11.6-15.6); WHITE BLOOD COUNT 13.4 K/mm3 (4.0-10.0)
--- NOTE | 2019-09-02 08:49 | PN ---
Progress Note, Physician History of Present Illness: POD#1 Right IT fx post right IM gamma nail w/o sequelae. - Current Medication List Current Medications: Active Medications Acetaminophen (Tylenol -) 650 mg PO Q6H [facility] Last Admin: 09/02/19 01:41 Dose: Not Given Amlodipine Besylate (Norvasc -) 10 mg PO DAILY [facility] Docusate Sodium (Colace -) 100 mg PO BID [facility] Last Admin: 09/02/19 00:35 Dose: Not Given Enoxaparin Sodium (Lovenox -) 40 mg SQ DAILY [facility] Ceftriaxone Sodium 1 gm/ (Dextrose) 50 mls @ 100 mls/hr IVPB DAILY [facility] Sodium Chloride (Normal Saline -) 1,000 mls @ 42 mls/hr IV ASDIR [facility] Last Admin: 09/01/19 16:10 Dose: 0 mls Insulin Aspart (Novolog Vial Sliding Scale -) 1 vial SQ ACHS [facility]; Protocol Last Admin: 09/02/19 06:52 Dose: 6 units Miconazole Nitrate (Monistat-7 Vaginal Cream -) 1 applic VG HS [facility] Stop: 09/07/19 22:01 Last Admin: 09/02/19 00:35 Dose: Not Given Morphine Sulfate (Morphine Sulfate) 2 mg IVPUSH Q4H PRN PRN Reason: PAIN LEVEL 4 - 6 Last Admin: 09/01/19 23:53 Dose: 2 mg Naloxone HCl (Narcan -) 0.4 mg IVPUSH ONCE PRN PRN Reason: Sedation Ondansetron HCl (Zofran Injection) 4 mg IVPUSH ONCE PRN PRN Reason: NAUSEA Oxycodone HCl (Roxicodone -) 5 mg PO Q3H PRN PRN Reason: Mild Pain 1-3 Oxycodone HCl (Roxicodone -) 10 mg PO Q3H PRN PRN Reason: PAIN 7-10 Sertraline HCl (Zoloft -) 25 mg PO DAILY [facility] Valsartan (Diovan -) 80 mg PO DAILY [facility] - Objective Vital Signs: Vital Signs Temperature 97.7 F 09/02/19 06:00 Pulse Rate 80 09/02/19 06:00 Respiratory Rate 18 09/02/19 06:00 Blood Pressure 101/58 L 09/02/19 06:00 O2 Sat by Pulse Oximetry (%) 98 09/01/19 21:00 Constitutional: Yes: No Distress, Calm, Thin Neck: Yes: Supple Cardiovascular: Yes: Regular Rate and Rhythm Respiratory: Yes: Regular, CTA Bilaterally Gastrointestinal: Yes: Normal Bowel Sounds, Soft Edema: No Labs: CBC, BMP 09/02/19 07:55 09/02/19 05:25 INR, PTT INR 1.08 (0.83-1.09) 08/31/19 05:10 - ....Imaging EKG: Report Reviewed Assessment/Plan Problem List - Problems (1) Diabetes mellitus Code(s): E11.9 - TYPE 2 DIABETES MELLITUS WITHOUT COMPLICATIONS (2) Hip fracture, right Code(s): S72.001A - FRACTURE OF UNSP PART OF NECK OF RIGHT FEMUR, INIT (3) Mitral regurgitation Code(s): I34.0 - NONRHEUMATIC MITRAL (VALVE) INSUFFICIENCY Qualifiers: Cardiac valve disease etiology: nonrheumatic Qualified Code(s): I34.0 - Nonrheumatic mitral (valve) insufficiency (4) Aortic regurgitation Code(s): I35.1 - NONRHEUMATIC AORTIC (VALVE) INSUFFICIENCY Qualifiers: Cardiac valve disease etiology: nonrheumatic Qualified Code(s): I35.1 - Nonrheumatic aortic (valve) insufficiency (5) Hypertension Code(s): I10 - ESSENTIAL (PRIMARY) HYPERTENSION Qualifiers: Hypertension type: essential hypertension Qualified Code(s): I10 - Essential (primary) hypertension Echo (Normal LVEF, mild AR, mild MR, trace TR) Assessment/Plan 08/31/2019 Severe cLVH normal LVEF 65%, mild MR, AR, tr TR 1. Post fall resulting in right IT fx POD#1 right IM gamma nail 2. Demand ischemia 3. HTN 4. Diabetes Mellitus 5. Non-compliant PLAN: 1. Continue Diovan 80 mg QD and Amlodipine 10 mg QD as tolerated 2. Troponin plateaued 3. Echocardiography report reviewed with family members 4. Analgesia as needed, DVT and GI prophylaxis 5. WBAT, PT->SNF
[2019-09-02] MEDS ORDERED: HALOPERIDOL LACTATE 5 MG/ML IM ONE (09:25)
[2019-09-02] MEDS ORDERED: INSULIN (LEVEMIR) 100 UNITS/ML UNITS SQ ONE (09:30)
--- NOTE | 2019-09-02 09:35 | PN ---
Teaching Attending Note Name of Resident: Eduardo Rahman ATTENDING PHYSICIAN STATEMENT I saw and evaluated the patient. I reviewed the resident's note and discussed the case with the resident. I agree with the resident's findings and plan as documented. SUBJECTIVE: S/P RT Hip surgery POD 1 OBJECTIVE: Vital Signs Temperature 97.7 F 09/02/19 06:00 Pulse Rate 111 H 09/02/19 09:31 Respiratory Rate 18 09/02/19 09:31 Blood Pressure 110/41 L 09/02/19 09:31 O2 Sat by Pulse Oximetry (%) 98 09/01/19 21:00 General: Elderly female, comfortable, not in distress HEENT; mucous membranes moist, no anemia, no jaundice, PERRLA, no nystagmus Neck: No JVD, supple, no bruit, thyroid palpably normal, normal carotid pulsations. Chest: Nontender, clear to auscultation bilaterally CVS: S1-S2 systolic murmur no/gallop/rub Abdomen: Nondistended, soft, bowel sounds present. Extremities: Right hip s/p surgery no edema., No calf tenderness, pulses present KEY RINGER: AO X3 , no gross motor sensory deficit CBC, BMP 09/02/19 07:55 09/02/19 05:25 Active Medications Acetaminophen (Tylenol -) 650 mg PO Q6H [facility] Last Admin: 09/02/19 01:41 Dose: Not Given Amlodipine Besylate (Norvasc -) 10 mg PO DAILY [facility] Docusate Sodium (Colace -) 100 mg PO BID [facility] Last Admin: 09/02/19 00:35 Dose: Not Given Enoxaparin Sodium (Lovenox -) 40 mg SQ DAILY [facility] Haloperidol (Haldol Injection (Fast Acting) -) 2.5 mg IM ONCE ONE Stop: 09/02/19 09:26 Ceftriaxone Sodium 1 gm/ (Dextrose) 50 mls @ 100 mls/hr IVPB DAILY [facility] Sodium Chloride (Normal Saline -) 1,000 mls @ 42 mls/hr IV ASDIR [facility] Last Admin: 09/01/19 16:10 Dose: 0 mls Insulin Aspart (Novolog Vial Sliding Scale -) 1 vial SQ ACHS [facility]; Protocol Last Admin: 09/02/19 06:52 Dose: 6 units Insulin Detemir (Levemir Vial) 5 units SQ AM [facility] Miconazole Nitrate (Monistat-7 Vaginal Cream -) 1 applic VG HS [facility] Stop: 09/07/19 22:01 Last Admin: 09/02/19 00:35 Dose: Not Given Morphine Sulfate (Morphine Sulfate) 2 mg IVPUSH Q4H PRN PRN Reason: PAIN LEVEL 4 - 6 Last Admin: 09/01/19 23:53 Dose: 2 mg Naloxone HCl (Narcan -) 0.4 mg IVPUSH ONCE PRN PRN Reason: Sedation Ondansetron HCl (Zofran Injection) 4 mg IVPUSH ONCE PRN PRN Reason: NAUSEA Oxycodone HCl (Roxicodone -) 5 mg PO Q3H PRN PRN Reason: Mild Pain 1-3 Oxycodone HCl (Roxicodone -) 10 mg PO Q3H PRN PRN Reason: PAIN 7-10 Sertraline HCl (Zoloft -) 25 mg PO DAILY [facility] Valsartan (Diovan -) 80 mg PO DAILY [facility] ASSESSMENT AND PLAN:88-year-old female history of diastolic heart failure, hypertension depression presented to ED after sustaining a mechanical fall with right femoral neck fracture evaluated by orthopedics, yesterday patient underwent surgery, became very confused and combative. Impression: #1. mechanical fall right hip fracture status post surgery postoperative day 2 . #2. Toxic metabolic encephalopathy due to UTI: Patient has positive UA with worsening mental status since hospitalization, urine is growing gram-negative bacilli, previously grew ESBL, will consult neurology and ID consult, on admission CT head no acute changes. #3 uncontrolled type 2 diabetes mellitus: Hemoglobin A1c 13 will optimize glycemic control increase Levemir dose to 8 units #4 hypertension: Continue current medication at present blood pressure is well controlled Problem List - Problems (1) Hip fracture, right Code(s): S72.001A - FRACTURE OF UNSP PART OF NECK OF RIGHT FEMUR, INIT (2) Hypertension Code(s): I10 - ESSENTIAL (PRIMARY) HYPERTENSION (3) Cardiac murmur Code(s): R01.1 - CARDIAC MURMUR, UNSPECIFIED (4) Anxiety Code(s): F41.9 - ANXIETY DISORDER, UNSPECIFIED (5) UTI (urinary tract infection) Code(s): N39.0 - URINARY TRACT INFECTION, SITE NOT SPECIFIED
[2019-09-02] MEDS ORDERED: ENOXAPARIN NA (PORCINE) 40 MG/0.4 ML DISP.SYRIN SQ SCH (10:00)
[2019-09-02] MEDS: VALSARTAN 80 MG TABLET (UD) PO SCH (11:31)
[2019-09-02] MEDS: amLODIPine BESYLATE 10 MG TABLET (FP) PO SCH (11:31)
[2019-09-02] MEDS: CEFTRIAXONE 1 GM in DEXTROSE 5%-WATER - 50 ML IVPB SCH ×2 (11:32→14:49)
[2019-09-02] MEDS: SERTRALINE HCL 25 MG TABLET (FP) PO SCH (11:32)
--- NOTE | 2019-09-02 11:35 | PN ---
Progress Note (short form) - Note Progress Note: Anesthesia postop note 88 y/o F s/p spinal anesthesia for right gamma nail POD#1, awake, agitated earlier, medicated with haldol, sleeping now, vss. No anesthesia complications.
[2019-09-02] MEDS: ENOXAPARIN NA (PORCINE) 40 MG/0.4 ML DISP.SYRIN SQ SCH (11:59)
[2019-09-02] MEDS ORDERED: LORazepam 2 MG/ML SDV VIAL IM ONE (12:30)
[2019-09-02] MEDS: SODIUM CHLORIDE 1,000 ML IV SCH (12:40)
[2019-09-02] MEDS ORDERED: cefTRIAXone SODIUM 1 GM VIAL ONE (14:21)
--- NOTE | 2019-09-02 14:54 | PN ---
Progress Note, Physician History of Present Illness: Pt seen and examined. SHe was agitated and pulled IV. - Current Medication List Current Medications: Active Medications Acetaminophen (Tylenol -) 650 mg PO Q6H [facility] Last Admin: 09/02/19 12:40 Dose: Not Given Acetaminophen (Ofirmev Injection -) 1,000 mg IVPB Q6H PRN PRN Reason: FEVER Stop: 09/03/19 14:46 Amlodipine Besylate (Norvasc -) 10 mg PO DAILY [facility] Last Admin: 09/02/19 11:31 Dose: Not Given Docusate Sodium (Colace -) 100 mg PO BID [facility] Last Admin: 09/02/19 11:31 Dose: Not Given Enoxaparin Sodium (Lovenox -) 40 mg SQ DAILY [facility] Last Admin: 09/02/19 11:59 Dose: 40 mg Ceftriaxone Sodium 1 gm/ (Dextrose) 50 mls @ 100 mls/hr IVPB DAILY [facility] Last Admin: 09/02/19 14:49 Dose: 100 mls/hr Sodium Chloride (Normal Saline -) 1,000 mls @ 42 mls/hr IV ASDIR [facility] Last Admin: 09/02/19 12:40 Dose: Not Given Ertapenem 1 gm/ Sodium (Chloride) 50 mls @ 100 mls/hr IVPB ONCE ONE Stop: 09/02/19 15:29 Insulin Aspart (Novolog Vial Sliding Scale -) 1 vial SQ [facility]; Protocol Last Admin: 09/02/19 11:59 Dose: Not Given Insulin Detemir (Levemir Vial) 5 units SQ AM [facility] Miconazole Nitrate (Monistat-7 Vaginal Cream -) 1 applic VG HS [facility] Stop: 09/07/19 22:01 Last Admin: 09/02/19 00:35 Dose: Not Given Morphine Sulfate (Morphine Sulfate) 2 mg IVPUSH Q4H PRN PRN Reason: PAIN LEVEL 4 - 6 Last Admin: 09/01/19 23:53 Dose: 2 mg Naloxone HCl (Narcan -) 0.4 mg IVPUSH ONCE PRN PRN Reason: Sedation Ondansetron HCl (Zofran Injection) 4 mg IVPUSH ONCE PRN PRN Reason: NAUSEA Oxycodone HCl (Roxicodone -) 5 mg PO Q3H PRN PRN Reason: Mild Pain 1-3 Oxycodone HCl (Roxicodone -) 10 mg PO Q3H PRN PRN Reason: PAIN 7-10 Sertraline HCl (Zoloft -) 25 mg PO DAILY [facility] Last Admin: 09/02/19 11:32 Dose: Not Given Valsartan (Diovan -) 80 mg PO DAILY [facility] Last Admin: 09/02/19 11:31 Dose: Not Given - Objective Vital Signs: Vital Signs Temperature 102.4 F H 09/02/19 14:46 Pulse Rate 96 H 09/02/19 14:46 Respiratory Rate 09/02/19 14:46 Blood Pressure 165/73 09/02/19 14:46 O2 Sat by Pulse Oximetry (%) 98 09/01/19 21:00 Constitutional: Yes: Other (sedated) Eyes: Yes: Conjunctiva Clear HENT: Yes: Atraumatic Neck: Yes: Supple Cardiovascular: Yes: S1, S2 Respiratory: Yes: CTA Bilaterally Gastrointestinal: Yes: Soft Genitourinary: Yes: Incontinence Edema: No Neurological: Yes: Lethargy Labs: CBC, BMP 09/02/19 07:55 09/02/19 05:25 INR, PTT INR 1.08 (0.83-1.09) 08/31/19 05:10 Problem List - Problems (1) Hip fracture, right Code(s): S72.001A - FRACTURE OF UNSP PART OF NECK OF RIGHT FEMUR, INIT (2) Hypertension Code(s): I10 - ESSENTIAL (PRIMARY) HYPERTENSION Qualifiers: Hypertension type: essential hypertension Qualified Code(s): I10 - Essential (primary) hypertension Assessment/Plan Current Medications Generic Name Dose Route Start Last Admin Trade Name Freq PRN Reason Stop Dose Admin Acetaminophen 650 mg 09/01/19 13:30 09/02/19 12:40 Tylenol - PO Not Given Q6H [facility] Acetaminophen 1,000 mg 09/02/19 14:46 Ofirmev Injection - IVPB 09/03/19 14:46 Q6H PRN FEVER Amlodipine Besylate 10 mg 09/02/19 10:00 09/02/19 11:31 Norvasc - PO Not Given DAILY [facility] Docusate Sodium 100 mg 09/01/19 22:00 09/02/19 11:31 Colace - PO Not Given BID [facility] Enoxaparin Sodium 40 mg 09/02/19 10:00 09/02/19 11:59 Lovenox - SQ 40 mg DAILY [facility] Administration Ceftriaxone Sodium 1 gm/ 50 mls @ 100 mls/hr 09/02/19 10:00 09/02/19 14:49 Dextrose IVPB 100 mls/hr DAILY [facility] Administration Sodium Chloride 1,000 mls @ 42 mls/hr 09/01/19 12:57 09/02/19 12:40 Normal Saline - IV Not Given ASDIR [facility] Ertapenem 1 gm/ Sodium 50 mls @ 100 mls/hr 09/02/19 15:00 Chloride IVPB 09/02/19 15:29 ONCE ONE Insulin Aspart 1 vial 09/01/19 16:30 09/02/19 11:59 Novolog Vial Sliding Scale - SQ Not Given ACHS [facility] Protocol Insulin Detemir 5 units 09/03/19 07:00 Levemir Vial SQ AM [facility] Miconazole Nitrate 1 applic 09/01/19 22:00 09/02/19 00:35 Monistat-7 Vaginal Cream - VG 09/07/19 22:01 Not Given [facility] Morphine Sulfate 2 mg 09/01/19 12:57 09/01/19 23:53 Morphine Sulfate IVPUSH 2 mg Q4H PRN Administration PAIN LEVEL 4 - 6 Naloxone HCl 0.4 mg 09/01/19 13:21 Narcan - IVPUSH ONCE PRN Sedation Ondansetron HCl 4 mg 09/01/19 13:21 Zofran Injection IVPUSH ONCE PRN NAUSEA Oxycodone HCl 5 mg 09/01/19 13:21 Roxicodone - PO Q3H PRN Mild Pain 1-3 Oxycodone HCl 10 mg 09/01/19 13:21 Roxicodone - PO Q3H PRN PAIN 7-10 Sertraline HCl 25 mg 09/02/19 10:00 09/02/19 11:32 Zoloft - PO Not Given DAILY [facility] Valsartan 80 mg 09/02/19 10:00 09/02/19 11:31 Diovan - PO Not Given DAILY [facility] Impression 1. azotemia/dehydration 2. dm 3. hip fracture 4. htn 5. s/p fall 6. UTI Plan - check urine culture - cont abx - monitor renal function - unable to start fluids as she pulled IV - avoid nsaids - discussed with medical interpreter - repeat ua once uti clears - check a1c
[2019-09-02] MEDS ORDERED: ERTAPENEM SODIUM 1 GM in SODIUM CHLORIDE 50 ML IVPB ONE (15:00)
[2019-09-02] MEDS: ACETAMINOPHEN 1000 MG/100 ML VIAL (NON FORMULARY) IVPB PRN (15:13)
--- NOTE | 2019-09-02 16:20 | PN ---
Progress Note (short form) - Note Progress Note: ID consult dictated imp/reccd 88 yo female admitted from home s/p fall and hip fracture prop course complicated by confusion requiring restraints she was started on ceftriaxone for UTI- no urine culture was sent received ertapenem today for fever 102 per her daughter recent worsening of hearing accompanied by htn, high blood sugar and UTI treated as outpt for UTI and started on new meds for htn and dm now with fever to 102 postop day #1 s/p gamma nail pe- quite somnalent- sedated, not following commands right hand is red/bruised, warm to touch right hip dressing intact, lexx intact fever pod #1 blood cultures ua and urine culture- straight cath if possible ertapenem based on prior urine culture from 2019 vancomycin after blood cultures are sent for possible cellulitis of the right hand d/w nurse Problem List - Problems (1) Postoperative fever Code(s): R50.82 - POSTPROCEDURAL FEVER (2) Hip fracture, right Code(s): S72.001A - FRACTURE OF UNSP PART OF NECK OF RIGHT FEMUR, INIT (3) UTI (urinary tract infection) Code(s): N39.0 - URINARY TRACT INFECTION, SITE NOT SPECIFIED
[2019-09-02] MEDS ORDERED: VANCOMYCIN 1 GRAM (PRE-DOCKED) 1,000 MG/250 ML BAG IVPB ONE (16:27)
--- NOTE | 2019-09-02 16:28 | PN ---
Progress Note (short form) - Note Progress Note: Ortho Pt seen and examined s/p right IM gamma nail pod #1 Selected Entries 09/02/19 14:46 Temperature 102.4 F H Pulse Rate 96 H Respiratory 20 Rate Blood Pressure 165/73 Laboratory Tests 09/02/19 07:55 WBC 13.4 H Hgb 9.8 L Hct 30.0 L Plt Count 228 D dressing saturated, calf soft, nt nvi a/p dressing changed PT if able, PWB dvt ppx pain control d/c planning
--- NOTE | 2019-09-02 18:17 | CON.PSY ---
Psychiatry Consult Chief Complaint: 88 Babs o;ld female s/p Hip SUrgery displayiong severe POst op agitationand combative Behaviour. Patient needed to be restrained , wass given Haldol and ativan im injestions with some response. Symptoms: reports: Impaired Concentration, Memory Impairment, Irritability - Previous Psychiatric Treatment Outpatient: None Inpatient: None - Previous Substance Abuse Treatment Outpatient: None Inpatient: None - Current Medications Current Medications: Active Medications Acetaminophen (Tylenol -) 650 mg PO Q6H [facility] Last Admin: 09/02/19 12:40 Dose: Not Given Acetaminophen (Ofirmev Injection -) 1,000 mg IVPB Q6H PRN PRN Reason: FEVER Stop: 09/03/19 14:46 Last Admin: 09/02/19 15:13 Dose: 1,000 mg Amlodipine Besylate (Norvasc -) 10 mg PO DAILY [facility] Last Admin: 09/02/19 11:31 Dose: Not Given Docusate Sodium (Colace -) 100 mg PO BID [facility] Last Admin: 09/02/19 11:31 Dose: Not Given Enoxaparin Sodium (Lovenox -) 40 mg SQ DAILY [facility] Last Admin: 09/02/19 11:59 Dose: 40 mg Sodium Chloride (Normal Saline -) 1,000 mls @ 42 mls/hr IV ASDIR [facility] Last Admin: 09/02/19 12:40 Dose: Not Given Ertapenem 1 gm/ Sodium (Chloride) 50 mls @ 100 mls/hr IVPB DAILY [facility] Insulin Aspart (Novolog Vial Sliding Scale -) 1 vial SQ ACHS [facility]; Protocol Last Admin: 09/02/19 17:31 Dose: 4 units Insulin Detemir (Levemir Vial) 5 units SQ AM [facility] Lorazepam (Ativan Injection -) 1 mg IM Q6H PRN PRN Reason: AGITATION Miconazole Nitrate (Monistat-7 Vaginal Cream -) 1 applic VG HS [facility] Stop: 09/07/19 22:01 Last Admin: 09/02/19 00:35 Dose: Not Given Morphine Sulfate (Morphine Sulfate) 2 mg IVPUSH Q4H PRN PRN Reason: PAIN LEVEL 4 - 6 Last Admin: 09/01/19 23:53 Dose: 2 mg Naloxone HCl (Narcan -) 0.4 mg IVPUSH ONCE PRN PRN Reason: Sedation Ondansetron HCl (Zofran Injection) 4 mg IVPUSH ONCE PRN PRN Reason: NAUSEA Oxycodone HCl (Roxicodone -) 5 mg PO Q3H PRN PRN Reason: Mild Pain 1-3 Oxycodone HCl (Roxicodone -) 10 mg PO Q3H PRN PRN Reason: PAIN 7-10 Sertraline HCl (Zoloft -) 25 mg PO DAILY [facility] Last Admin: 09/02/19 11:32 Dose: Not Given Valsartan (Diovan -) 80 mg PO DAILY [facility] Last Admin: 09/02/19 11:31 Dose: Not Given - Allergies Allergies: Allergies Allergy/AdvReac Type Severity Reaction Status Date / Time No Known Allergies Allergy Verified 08/30/19 12:37 - Current Living Status Usual Living Arrangement: With Significant Other - Current Mental Status Evaluation Appearance: Disheveled Attitude: Belligerent - Affect Affect: Constrictive Appropriateness: Not Appropriate - Mood Mood: Irritable - Speech/Language Expressive: Delayed - Psychomotor Activity Psychomotor Activity: Hyperactive - Thought Process Thought Process: Tunas - Thought Content Hallucinations: Absent Delusions: Absent - Self Perception Self Perception: Depersonalization - Cognition Attention: Diminished Memory, Immediate Recall: Impaired Memory, Short Term: 0/3 Memory, Remote with Promptin/3 - Concentration Serial Sevens Intact: No Simple Calculations Intact: No - Abstraction Proverb Interpretation: Impaired Judgement: Severely Impaired - Insight Insight: Impaired - Impulse Control Impulse Control: Severly Impaired - Suicidal Ideation Suicidal Ideation: No - Homicidal Ideation Homicidal Ideation: No Assessment/Plan 1) cONTINUE with aTIVAN im prn INJECTIONS TO STABLIse behavior.
[2019-09-02] MEDS: LORazepam 2 MG/ML SDV VIAL IM PRN (18:44)
[2019-09-02 19:20] LABS: HYALINE CASTS 25 /lpf (0-8); URINE APPEARANCE CLOUDY; URINE BACTERIA 31.3 /hpf (NEGATIVE); URINE BILIRUBIN NEGATIVE (NEGATIVE); URINE COLOR YELLOW; URINE GLUCOSE (UA) 3+ (NEGATIVE); URINE KETONE 2+ (NEGATIVE); URINE LEUK ESTERASE TRACE (NEGATIVE); URINE NITRITE NEGATIVE (NEGATIVE); URINE PROTEIN 1+ (NEGATIVE); URINE RBC 4 /hpf (0-4); URINE UROBILINOGEN 0.2 mg/dL (0.2-1.0); URINE WBC 53 /hpf (0-5)
[2019-09-02 19:35] LABS: YEAST MANY (NEGATIVE)
[2019-09-03] MEDS: MICONAZOLE NITRATE 2% VAGINAL CREAM 45 GM TUBE VG SCH ×2 (00:32→22:55)
[2019-09-03] MEDS: ACETAMINOPHEN 325 MG TABLET (FP) PO SCH ×4 (02:45→20:45)
[2019-09-03] MEDS: LORazepam 2 MG/ML SDV VIAL IM PRN (02:46)
[2019-09-03] MEDS: MORPHINE SULFATE 2 MG/ML VIAL IVPUSH PRN ×2 (05:27→10:22)
[2019-09-03] MEDS: INSULIN (LEVEMIR) 100 UNITS/ML UNITS SQ SCH (07:48)
[2019-09-03] MEDS: INSULIN SLIDING SCALE (NOVOLOG) 1 VIAL SQ SCH ×4 (07:49→22:59)
[2019-09-03 07:53] LABS: BASO % 0.6 % (0-2.0); HEMATOCRIT 28.1 % (32.4-45.2); HEMOGLOBIN 9.1 GM/dL (10.7-15.3); MCH 27.3 pg (25.7-33.7); MCHC 32.4 g/dl (32.0-36.0); MEAN CELL VOLUME 84.2 fl (80-96); MEAN PLT VOLUME 10.8 fl (7.5-11.1); NEUT % 75.4 % (42.8-82.8); PLATELET COUNT 208 K/MM3 (134-434); RBC 3.34 M/mm3 (3.60-5.2); RDW 13.2 % (11.6-15.6); WHITE BLOOD COUNT 11.2 K/mm3 (4.0-10.0)
--- NOTE | 2019-09-03 08:11 | PN ---
Physical Exam: SUBJECTIVE: Patient seen and examined POD#2 , S/P Right hip IM gamma nail still with fever and some confusion but more awake , family at bed side , was able to rachana this am Urine cx with Echoli ESBL , cont vanco and ertapinim switch fluids to 1/2 NS as NA 144 OBJECTIVE: Vital Signs Period Temp Pulse Resp BP Sys/Powers Pulse Ox Last 24 Hr 98.8 F-102.4 F 75-111 18-20 110-165/41-73 97-98 GENERAL:confused , delirious HEAD: NC/AT EYES: Pupils equal, round and reactive to light, extraocular movements intact, EARS, NOSE, THROAT: dry mucous membranes. NECK: Normal range of motion, supple LUNGS: Breath sounds equal, clear to auscultation bilaterally. No wheezes, and no crackles. No accessory muscle use. HEART: Regular rate and rhythm, normal S1 and S2,4/6 systolic murmur all over RUSB , LUSB radiated to neck ABDOMEN: Soft, nontender, not distended, normoactive bowel sounds, UPPER EXTREMITIES: 2+ pulses, warm, well-perfused. hand with erythema as she bite her self LOWER EXTREMITIES: 2+ pulses, warm, well-perfused. No calf tenderness. No peripheral edema. right leg S/P gamma Nail IM with stitches , +2 DP, left leg FROM proximal and distal , NEUROLOGICAL: no focal deficit . PSYCHIATRIC: agitated SKIN: Warm, dry, normal turgor, Laboratory Results - last 24 hr 09/02/09/02/19 09/02/19 07:55 11:58 13:43 WBC 13.4 H RBC 3.61 Hgb 9.8 L Hct 30.0 L MCV 83.0 MCH 27.3 MCHC 32.8 RDW 13.3 Plt Count 228 D MPV 10.3 Absolute Neuts (auto) 10.3 H Neutrophils % 76.9 Lymphocytes % 13.1 D Monocytes % 9.2 Eosinophils % 0.2 Basophils % 0.6 Nucleated RBC % 0 POC Glucometer 172 Troponin I 0.13 H Urine Color Urine Appearance Urine pH Ur Specific Frederic Urine Protein Urine Glucose (UA) Urine Ketones Urine Blood Urine Nitrite Urine Bilirubin Urine Urobilinogen Ur Leukocyte Esterase Urine WBC (Auto) Urine RBC (Auto) Urine Casts (Auto) U Pathogenic Cast Auto U Epithel Cells (Auto) Urine Bacteria (Auto) Urine Yeast (Auto) 09/02/19 09/02/19 09/02/19 17:30 18:00 22:00 WBC RBC Hgb Hct MCV MCH MCHC RDW Plt Count MPV Absolute Neuts (auto) Neutrophils % Lymphocytes % Monocytes % Eosinophils % Basophils % Nucleated RBC % POC Glucometer 208 Troponin I Cancelled Urine Color Yellow Urine Appearance Cloudy Urine pH 5.0 Ur Specific Frederic 1.022 Urine Protein 1+ H Urine Glucose (UA) 3+ H Urine Ketones 2+ H Urine Blood 1+ H Urine Nitrite Negative Urine Bilirubin Negative Urine Urobilinogen 0.2 Ur Leukocyte Esterase Trace Urine WBC (Auto) 53 Urine RBC (Auto) 4 Urine Casts (Auto) 25 U Pathogenic Cast Auto None U Epithel Cells (Auto) 1.0 Urine Bacteria (Auto) 31.3 Urine Yeast (Auto) Many 09/02/19 09/02/19 09/03/19 22:00 22:08 06:40 WBC 11.2 H RBC 3.34 L Hgb 9.1 L Hct 28.1 L MCV 84.2 MCH 27.3 MCHC 32.4 RDW 13.2 Plt Count 208 MPV 10.8 Absolute Neuts (auto) 8.5 H Neutrophils % 75.4 Lymphocytes % 12.0 Monocytes % 11.0 H Eosinophils % 1.0 D Basophils % 0.6 Nucleated RBC % 0 POC Glucometer 233 Troponin I 0.11 H Urine Color Urine Appearance Urine pH Ur Specific Frederic Urine Protein Urine Glucose (UA) Urine Ketones Urine Blood Urine Nitrite Urine Bilirubin Urine Urobilinogen Ur Leukocyte Esterase Urine WBC (Auto) Urine RBC (Auto) Urine Casts (Auto) U Pathogenic Cast Auto U Epithel Cells (Auto) Urine Bacteria (Auto) Urine Yeast (Auto) 09/03/19 06:57 WBC RBC Hgb Hct MCV MCH MCHC RDW Plt Count MPV Absolute Neuts (auto) Neutrophils % Lymphocytes % Monocytes % Eosinophils % Basophils % Nucleated RBC % POC Glucometer 253 Troponin I Urine Color Urine Appearance Urine pH Ur Specific Frederic Urine Protein Urine Glucose (UA) Urine Ketones Urine Blood Urine Nitrite Urine Bilirubin Urine Urobilinogen Ur Leukocyte Esterase Urine WBC (Auto) Urine RBC (Auto) Urine Casts (Auto) U Pathogenic Cast Auto U Epithel Cells (Auto) Urine Bacteria (Auto) Urine Yeast (Auto) Active Medications Generic Name Dose Route Start Last Admin Trade Name Freq PRN Reason Stop Dose Admin Acetaminophen 650 mg 09/01/19 13:30 09/03/19 02:45 Tylenol - PO Not Given Q6H [facility] Acetaminophen 1,000 mg 09/02/19 14:46 09/02/19 15:13 Ofirmev Injection - IVPB 09/03/19 14:46 1,000 mg Q6H PRN Administration FEVER Amlodipine Besylate 10 mg 09/02/19 10:00 09/02/19 11:31 Norvasc - PO Not Given DAILY [facility] Docusate Sodium 100 mg 09/01/19 22:00 09/02/19 23:12 Colace - PO Not Given BID [facility] Enoxaparin Sodium 40 mg 09/02/19 10:00 09/02/19 11:59 Lovenox - SQ 40 mg DAILY [facility] Administration Sodium Chloride 1,000 mls @ 42 mls/hr 09/01/19 12:57 09/02/19 12:40 Normal Saline - IV Not Given ASDIR [facility] Ertapenem 1 gm/ Sodium 50 mls @ 100 mls/hr 09/03/19 10:00 Chloride IVPB DAILY [facility] Insulin Aspart 1 vial 09/01/19 16:30 09/03/19 07:49 Novolog Vial Sliding Scale - SQ Not [facility] Protocol Insulin Detemir 5 units 09/03/19 07:00 09/03/19 07:48 Levemir Vial SQ 5 units AM [facility] Administration Lorazepam 1 mg 09/02/19 15:22 09/03/19 02:46 Ativan Injection - IM 1 mg Q6H PRN Administration AGITATION Miconazole Nitrate 1 applic 09/01/19 22:00 09/03/19 00:32 Monistat-7 Vaginal Cream - VG 09/07/19 22:01 Not Given HS [facility] Morphine Sulfate 2 mg 09/01/19 12:57 09/03/19 05:27 Morphine Sulfate IVPUSH 2 mg Q4H PRN Administration PAIN LEVEL 4 - 6 Naloxone HCl 0.4 mg 09/01/19 13:21 Narcan - IVPUSH ONCE PRN Sedation Ondansetron HCl 4 mg 09/01/19 13:21 Zofran Injection IVPUSH ONCE PRN NAUSEA Oxycodone HCl 5 mg 09/01/19 13:21 Roxicodone - PO Q3H PRN Mild Pain 1-3 Oxycodone HCl 10 mg 09/01/19 13:21 Roxicodone - PO Q3H PRN PAIN 7-10 Sertraline HCl 25 mg 09/02/19 10:00 09/02/19 11:32 Zoloft - PO Not Given DAILY [facility] Valsartan 80 mg 09/02/19 10:00 09/02/19 11:31 Diovan - PO Not Given DAILY [facility] CBC, BMP 09/03/19 06:40 09/03/19 06:40 ASSESSMENT/PLAN: This is a 87 year old female with a history of IDDM, HTN, diverticulosis, depression, presented with after fall on her right side found to have right hip fx and elevated trop # Right intertrochanter fx S/P fall S/P IM Gamma nail POD #2 * admit to tele * xray reviwed , order head CT negative for acute pathology * pain control iV morphin 2 mg Q 4hr , Oxy 5 and 10 and fentanyl patches * Echo was done in september 2018 wit EF 70 % and mild D chf grade II , Mild and AR , will repeat as more than 6 month * resume diet * IV fluids gentle hydration 1/2 NS @ 42 Cc/hr # UTI with history f ESBL echoli consult ID switch abx to ertapinim and Vanco follow cx and sensiticity , # Dilirious 2/2 UTI vs surgery * consult psych * QTC 466 * Ativan and haldol given in AM , can Giv Atiavn low dose Q 6 hr as needed for agitation avoid haldol for now as QTC is borderline #fall 2/2 syncope vs dehydration vs mechanical fall vs imbalance gait VS UTI * head CT negative for acute pathology * echo reviewed EF 65 % , LVH , mild MR and TR and AR , normal LV function * bp monitor * PT eval after surgery * will benefit from JOELLEN #Hypertensive , non compliant with her meds * still with elevated bp, * cont valsartan 80 mg qD hold for BP below 100 * cont norvasc 10mg qd hold for sytolic less than 100 #elevated troponin likely demand ischemia , no EKG changes , * trend trop * ACS unlikely; likeley demand ischemia * echo reviewed * cardiology consulted #DM , uncontrolled 2/2 non compliant , A1c 13 * last hemoglobin a1c 10.repeat 13 * currently on ISS, add levimer 5 units SQ once * hold oral agents * diabetic diet #depression with suicidal ideation * on zoloft, cont # MVR And AR noted on Echo , follow up out pt #dVT proph:Lovenox 40 SQ daily # Full code Dispo: tele monitor will benifit from [facility] Visit type - Emergency Visit Emergency Visit: Yes ED Registration Date: 08/30/19 Care time: The patient presented to the Emergency Department on the above date and was hospitalized for further evaluation of their emergent condition. - New Patient This patient is new to me today: No - Critical Care Critical Care patient: No ATTENDING PHYSICIAN STATEMENT I saw and evaluated the patient. I reviewed the resident's note and discussed the case with the resident. I agree with the resident's findings and plan as documented. SUBJECTIVE: OBJECTIVE: ASSESSMENT AND PLAN:
[2019-09-03 08:16] LABS: ALBUMIN 2.4 g/dl (3.4-5.0); BILIRUBIN,TOTAL 0.9 mg/dL (0.2-1); BLOOD UREA NITROGEN 28.9 mg/dL (7-18); CALCIUM 9.1 mg/dL (8.5-10.1); CREATININE 0.9 mg/dL (0.55-1.3); PHOSPHOROUS 2.5 mg/dL (2.5-4.9); TOT PROT 5.8 g/dl (6.4-8.2)
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
[2019-09-03] MEDS ORDERED: PT OWN MED DRAWER 7, Y5N ONE (08:56)
--- NOTE | 2019-09-03 09:35 | PN ---
Progress Note, Physician History of Present Illness: POD#2 Right IT fx post right IM gamma nail w/o sequelae. Low grade fever in AM, lethargic. - Current Medication List Current Medications: Active Medications Acetaminophen (Tylenol -) 650 mg PO Q6H [facility] Last Admin: 09/03/19 08:21 Dose: Not Given Acetaminophen (Ofirmev Injection -) 1,000 mg IVPB Q6H PRN PRN Reason: FEVER Stop: 09/03/19 14:46 Last Admin: 09/02/19 15:13 Dose: 1,000 mg Amlodipine Besylate (Norvasc -) 10 mg PO DAILY [facility] Last Admin: 09/02/19 11:31 Dose: Not Given Docusate Sodium (Colace -) 100 mg PO BID [facility] Last Admin: 09/02/19 23:12 Dose: Not Given Enoxaparin Sodium (Lovenox -) 40 mg SQ DAILY [facility] Last Admin: 09/02/19 11:59 Dose: 40 mg Sodium Chloride (Normal Saline -) 1,000 mls @ 42 mls/hr IV ASDIR [facility] Last Admin: 09/02/19 12:40 Dose: Not Given Ertapenem 1 gm/ Sodium (Chloride) 50 mls @ 100 mls/hr IVPB DAILY [facility] Insulin Aspart (Novolog Vial Sliding Scale -) 1 vial SQ ACHS [facility]; Protocol Last Admin: 09/03/19 07:49 Dose: Not Given Insulin Detemir (Levemir Vial) 5 units SQ AM [facility] Last Admin: 09/03/19 07:48 Dose: 5 units Lorazepam (Ativan Injection -) 1 mg IM Q6H PRN PRN Reason: AGITATION Last Admin: 09/03/19 02:46 Dose: 1 mg Miconazole Nitrate (Monistat-7 Vaginal Cream -) 1 applic VG HS [facility] Stop: 09/07/19 22:01 Last Admin: 09/03/19 00:32 Dose: Not Given Morphine Sulfate (Morphine Sulfate) 2 mg IVPUSH Q4H PRN PRN Reason: PAIN LEVEL 4 - 6 Last Admin: 09/03/19 05:27 Dose: 2 mg Naloxone HCl (Narcan -) 0.4 mg IVPUSH ONCE PRN PRN Reason: Sedation Ondansetron HCl (Zofran Injection) 4 mg IVPUSH ONCE PRN PRN Reason: NAUSEA Oxycodone HCl (Roxicodone -) 5 mg PO Q3H PRN PRN Reason: Mild Pain 1-3 Oxycodone HCl (Roxicodone -) 10 mg PO Q3H PRN PRN Reason: PAIN 7-10 Sertraline HCl (Zoloft -) 25 mg PO DAILY [facility] Last Admin: 09/02/19 11:32 Dose: Not Given Valsartan (Diovan -) 80 mg PO DAILY [facility] Last Admin: 09/02/19 11:31 Dose: Not Given - Objective Vital Signs: Vital Signs Temperature 98.8 F 09/03/19 06:00 Pulse Rate 88 09/03/19 06:00 Respiratory Rate 18 09/03/19 06:00 Blood Pressure 132/46 L 09/03/19 06:00 O2 Sat by Pulse Oximetry (%) 97 09/02/19 21:00 Constitutional: Yes: No Distress, Calm, Thin Neck: Yes: Supple, Tenderness Respiratory: Yes: Regular, Diminished Gastrointestinal: Yes: Soft, Hypoactive Bowel Sounds Edema: No Labs: CBC, BMP 09/03/19 06:40 09/03/19 06:40 INR, PTT INR 1.08 (0.83-1.09) 08/31/19 05:10 Assessment/Plan Problem List - Problems (1) Diabetes mellitus Code(s): E11.9 - TYPE 2 DIABETES MELLITUS WITHOUT COMPLICATIONS (2) Hip fracture, right Code(s): S72.001A - FRACTURE OF UNSP PART OF NECK OF RIGHT FEMUR, INIT (3) Mitral regurgitation Code(s): I34.0 - NONRHEUMATIC MITRAL (VALVE) INSUFFICIENCY Qualifiers: Cardiac valve disease etiology: nonrheumatic Qualified Code(s): I34.0 - Nonrheumatic mitral (valve) insufficiency (4) Aortic regurgitation Code(s): I35.1 - NONRHEUMATIC AORTIC (VALVE) INSUFFICIENCY Qualifiers: Cardiac valve disease etiology: nonrheumatic Qualified Code(s): I35.1 - Nonrheumatic aortic (valve) insufficiency (5) Hypertension Code(s): I10 - ESSENTIAL (PRIMARY) HYPERTENSION Qualifiers: Hypertension type: essential hypertension Qualified Code(s): I10 - Essential (primary) hypertension Echo (Normal LVEF, mild AR, mild MR, trace TR) Assessment/Plan 08/31/2019 Severe cLVH normal LVEF 65%, mild MR, AR, tr TR 1. Post fall resulting in right IT fx POD#2 right IM gamma nail 2. Demand ischemia 3. HTN 4. Diabetes Mellitus 5. Non-compliant 6. Toxic metabolic encephelopathy 2/2 post op fever r/o sepsis PLAN: 1. Continue Diovan 80 mg QD and Amlodipine 10 mg QD as tolerated 2. Troponin plateaued 3. Echocardiography report reviewed with family members 4. Analgesia as needed, DVT and GI prophylaxis 5. Empiric abx per C&S, minimize narcotic and anxiolytic use
[2019-09-03] MEDS ORDERED: ERTAPENEM SODIUM 1 GM in SODIUM CHLORIDE 50 ML IVPB SCH (10:00)
[2019-09-03] MEDS: SERTRALINE HCL 25 MG TABLET (FP) PO SCH (10:14)
[2019-09-03] MEDS: amLODIPine BESYLATE 10 MG TABLET (FP) PO SCH (10:14)
[2019-09-03] MEDS: ERTAPENEM SODIUM 1 GM in SODIUM CHLORIDE 50 ML IVPB SCH (10:15)
[2019-09-03] MEDS: DOCUSATE SODIUM 100 MG CAPSULE (FP) PO SCH ×2 (10:15→22:56)
[2019-09-03] MEDS: ENOXAPARIN NA (PORCINE) 40 MG/0.4 ML DISP.SYRIN SQ SCH (10:15)
[2019-09-03] MEDS: VALSARTAN 80 MG TABLET (UD) PO SCH (10:15)
--- NOTE | 2019-09-03 10:42 | PN ---
Progress Note (short form) - Note Progress Note: Ortho Pt seen and examined s/p right IM gamma nail pod #2 Selected Entries 09/03/19 10:11 Temperature 99.1 F Pulse Rate 79 Respiratory 18 Rate Blood Pressure 160/80 Laboratory Tests 09/03/19 06:40 WBC 11.2 H Hgb 9.1 L Hct 28.1 L Plt Count 208 dressing c/d/i, calf soft, nt nvi a/p Abx as per ID PT if able, PWB dvt ppx pain control d/c planning
[2019-09-03] MEDS: ACETAMINOPHEN 1000 MG/100 ML VIAL (NON FORMULARY) IVPB PRN (12:01)
--- NOTE | 2019-09-03 12:20 | PN ---
Teaching Attending Note Name of Resident: Eduardo Rahman ATTENDING PHYSICIAN STATEMENT I saw and evaluated the patient. I reviewed the resident's note and discussed the case with the resident. I agree with the resident's findings and plan as documented. SUBJECTIVE: More cooperative and alert OBJECTIVE: Vital Signs Temperature 99.1 F 09/03/19 10:11 Pulse Rate 79 09/03/19 10:11 Respiratory Rate 18 09/03/19 10:11 Blood Pressure 160/80 09/03/19 10:11 O2 Sat by Pulse Oximetry (%) 97 09/02/19 21:00 General: Elderly female, comfortable, not in distress HEENT; mucous membranes moist, no anemia, no jaundice, PERRLA, no nystagmus Neck: No JVD, supple, no bruit, thyroid palpably normal, normal carotid pulsations. Chest: Nontender, clear to auscultation bilaterally CVS: S1-S2 systolic murmur no/gallop/rub Abdomen: Nondistended, soft, bowel sounds present. 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 , no gross motor sensory deficit CBC, BMP 09/03/19 06:40 09/03/19 06:40 Active Medications Active Medications Acetaminophen (Tylenol -) 650 mg PO Q6H [facility] Last Admin: 09/03/19 08:21 Dose: Not Given Acetaminophen (Ofirmev Injection -) 1,000 mg IVPB Q6H PRN PRN Reason: FEVER Stop: 09/03/19 14:46 Last Admin: 09/03/19 12:01 Dose: 1,000 mg Amlodipine Besylate (Norvasc -) 10 mg PO DAILY [facility] Last Admin: 09/03/19 10:14 Dose: 10 mg Docusate Sodium (Colace -) 100 mg PO BID [facility] Last Admin: 09/03/19 10:15 Dose: Not Given Enoxaparin Sodium (Lovenox -) 40 mg SQ DAILY [facility] Last Admin: 09/03/19 10:15 Dose: 40 mg Sodium Chloride (Normal Saline -) 1,000 mls @ 42 mls/hr IV ASDIR [facility] Last Admin: 09/02/19 12:40 Dose: Not Given Ertapenem 1 gm/ Sodium (Chloride) 50 mls @ 100 mls/hr IVPB DAILY [facility] Last Admin: 09/03/19 10:15 Dose: 100 mls/hr Insulin Aspart (Novolog Vial Sliding Scale -) 1 vial SQ ACHS [facility]; Protocol Last Admin: 09/03/19 11:52 Dose: 6 units Insulin Detemir (Levemir Vial) 5 units SQ AM [facility] Last Admin: 09/03/19 07:48 Dose: 5 units Lorazepam (Ativan Injection -) 1 mg IM Q6H PRN PRN Reason: AGITATION Last Admin: 09/03/19 02:46 Dose: 1 mg Miconazole Nitrate (Monistat-7 Vaginal Cream -) 1 applic VG HS [facility] Stop: 09/07/19 22:01 Last Admin: 09/03/19 00:32 Dose: Not Given Morphine Sulfate (Morphine Sulfate) 2 mg IVPUSH Q4H PRN PRN Reason: PAIN LEVEL 4 - 6 Last Admin: 09/03/19 10:22 Dose: 2 mg Naloxone HCl (Narcan -) 0.4 mg IVPUSH ONCE PRN PRN Reason: Sedation Ondansetron HCl (Zofran Injection) 4 mg IVPUSH ONCE PRN PRN Reason: NAUSEA Oxycodone HCl (Roxicodone -) 5 mg PO Q3H PRN PRN Reason: Mild Pain 1-3 Oxycodone HCl (Roxicodone -) 10 mg PO Q3H PRN PRN Reason: PAIN 7-10 Sertraline HCl (Zoloft -) 25 mg PO DAILY [facility] Last Admin: 09/03/19 10:14 Dose: 25 mg Valsartan (Diovan -) 80 mg PO DAILY [facility] Last Admin: 09/03/19 10:15 Dose: 80 mg ASSESSMENT AND PLAN:88-year-old female history of diastolic heart failure, hypertension depression presented to ED after sustaining a mechanical fall with right femoral neck fracture evaluated by orthopedics, yesterday patient underwent surgery, became very confused and combative. Impression: 1. mechanical fall right hip fracture status post surgery postoperative day 2 . 2. Toxic metabolic encephalopathy due to UTI: Patient has positive UA with worsening mental status since hospitalization, urine is growing gram-negative bacilli, previously grew ESBL, continue current antibiotic. 3.uncontrolled type 2 diabetes mellitus: Hemoglobin A1c 13 will optimize glycemic control increase 4. hypertension: Continue current medication at present blood pressure is well controlled Rest continue current management Problem List - Problems (1) Hip fracture, right Code(s): S72.001A - FRACTURE OF UNSP PART OF NECK OF RIGHT FEMUR, INIT (2) Hypertension Code(s): I10 - ESSENTIAL (PRIMARY) HYPERTENSION (3) Cardiac murmur Code(s): R01.1 - CARDIAC MURMUR, UNSPECIFIED (4) Anxiety Code(s): F41.9 - ANXIETY DISORDER, UNSPECIFIED (5) UTI (urinary tract infection) Code(s): N39.0 - URINARY TRACT INFECTION, SITE NOT SPECIFIED
--- NOTE | 2019-09-03 14:16 | PN ---
Progress Note (short form) - Note Progress Note: sedated with ativan ate earlier today per rn sleeping now Vital Signs Period Temp Pulse Resp BP Sys/Powers Pulse Ox Last 24 Hr 98.8 F-102.4 F 75-96 18-20 130-165/46-80 97-97 cor-rrr lungs decreased bs at bases abd soft,nt ext no edema, discolored, warm right hand +right thigh incsion wit lexx CBC, BMP 09/03/19 06:40 09/03/19 06:40 blood/urine cultue pending a/p fevers postop day #2 s/p gamma nail continue vanco/ertapenem blood cultures/urine culture drawn after receiving ertapenem will f/u Problem List - Problems (1) Postoperative fever Code(s): R50.82 - POSTPROCEDURAL FEVER (2) Hip fracture, right Code(s): S72.001A - FRACTURE OF UNSP PART OF NECK OF RIGHT FEMUR, INIT (3) UTI (urinary tract infection) Code(s): N39.0 - URINARY TRACT INFECTION, SITE NOT SPECIFIED
--- NOTE | 2019-09-03 15:00 | CONS ---
DATE OF CONSULTATION: DATE OF DICTATION: 09/03/2019 HISTORY OF PRESENT ILLNESS: This is an 88-year-old woman who I saw at the bedside with her daughter. She had been admitted from home, status post a fall and a hip fracture. Her preop course was complicated by confusion. She required restraints. She was started on ceftriaxone for a UTI. No urine culture was sent. She received ertapenem today for a fever of 102. I am called to evaluate her for the fever. Per her daughter, she had had recent worsening of her hearing, accompanied by high blood pressure, high blood sugars, and a UTI. She was treated as an outpatient for UTI with an antibiotic, she does not know what, and started on new medicine for hypertension and diabetes by Dr. Arias. She has a past history in 2019 of an E coli ESBL UTI. PAST MEDICAL HISTORY: Notable for [id number] diabetes, heart failure, hypertension, and depression. SURGICAL HISTORY: Unremarkable. She had exited her car and fallen to the floor, which is how she sustained her fracture. SOCIAL HISTORY: There is no history of cigarette, alcohol or substance use. ALLERGIES: She has no known drug allergies. MEDICATIONS: Include amlodipine, aspirin, metformin, olmesartan, sertraline, and valsartan. This is a list from 2019 and I do not know how accurate it is. The daughter is not aware and does not have her mother's medication list. REVIEW OF SYSTEMS: The patient is currently sedated and unable to give any history. PHYSICAL EXAMINATION: General: She is sedated and resting comfortably. Vital Signs: Her temperature was 102.4, pulse of 96, blood pressure 165/73, respiratory rate of 20. HEENT: She is normocephalic. Her eyes are anicteric. Neck: Supple. Lungs: Clear to auscultation. Heart: Regular rate and rhythm. Abdomen: Soft. Nontender. Extremities: Her right hand, which apparently she had been wearing a restraint and mitt, is red and warm. Her left hand, she has an IV that is well wrapped. She is postop day 1 from her hip and there is a dressing intact. Her extremities are without edema. LABORATORIES: Notable for white count of 13.4, hemoglobin 9.8, platelets are 228. INR is 1. BUN and creatinine are 23 and 1. LFTs are normal. UA on admission showed 1+ leuks with 134 white cells and no cultures were sent at that time. In summary, this is an 88-year-old woman with fever, postoperative day 1 status post gamma nail for hip fracture with fever of 102. On exam, she has a red, bruised right hand and a possible UTI. I would suggest we send blood cultures, a UA and urine culture if possible. Would give her ertapenem, based on the prior urine cultures from last year, and would give her vancomycin after blood cultures for possible cellulitis in the hand. Case was discussed with the nurse who will attempt to obtain cultures if the patient is cooperative. MAIRA THOMSON M.D. [id number]
--- NOTE | 2019-09-03 16:14 | PN ---
Progress Note, Physician History of Present Illness: Pt seen and examined at bedside. She is drowsy at the moment. - Current Medication List Current Medications: Active Medications Acetaminophen (Tylenol -) 650 mg PO Q6H [facility] Last Admin: 09/03/19 12:55 Dose: Not Given Amlodipine Besylate (Norvasc -) 10 mg PO DAILY [facility] Last Admin: 09/03/19 10:14 Dose: 10 mg Docusate Sodium (Colace -) 100 mg PO BID [facility] Last Admin: 09/03/19 10:15 Dose: Not Given Enoxaparin Sodium (Lovenox -) 40 mg SQ DAILY [facility] Last Admin: 09/03/19 10:15 Dose: 40 mg Sodium Chloride (Normal Saline -) 1,000 mls @ 42 mls/hr IV ASDIR [facility] Last Admin: 09/02/19 12:40 Dose: Not Given Ertapenem 1 gm/ Sodium (Chloride) 50 mls @ 100 mls/hr IVPB DAILY [facility] Last Admin: 09/03/19 10:15 Dose: 100 mls/hr Vancomycin HCl (Vancomycin (Pre-Docked)) 1,000 mg in 250 mls @ 200 mls/hr IVPB Q24H [facility]; Protocol Insulin Aspart (Novolog Vial Sliding Scale -) 1 vial SQ ACHS [facility]; Protocol Last Admin: 09/03/19 11:52 Dose: 6 units Insulin Detemir (Levemir Vial) 5 units SQ AM [facility] Last Admin: 09/03/19 07:48 Dose: 5 units Lorazepam (Ativan Injection -) 1 mg IM Q6H PRN PRN Reason: AGITATION Last Admin: 09/03/19 02:46 Dose: 1 mg Miconazole Nitrate (Monistat-7 Vaginal Cream -) 1 applic VG HS [facility] Stop: 09/07/19 22:01 Last Admin: 09/03/19 00:32 Dose: Not Given Morphine Sulfate (Morphine Sulfate) 2 mg IVPUSH Q4H PRN PRN Reason: PAIN LEVEL 4 - 6 Last Admin: 09/03/19 10:22 Dose: 2 mg Naloxone HCl (Narcan -) 0.4 mg IVPUSH ONCE PRN PRN Reason: Sedation Ondansetron HCl (Zofran Injection) 4 mg IVPUSH ONCE PRN PRN Reason: NAUSEA Oxycodone HCl (Roxicodone -) 5 mg PO Q3H PRN PRN Reason: Mild Pain 1-3 Oxycodone HCl (Roxicodone -) 10 mg PO Q3H PRN PRN Reason: PAIN 7-10 Sertraline HCl (Zoloft -) 25 mg PO DAILY [facility] Last Admin: 09/03/19 10:14 Dose: 25 mg Valsartan (Diovan -) 80 mg PO DAILY [facility] Last Admin: 09/03/19 10:15 Dose: 80 mg - Objective Vital Signs: Vital Signs Temperature 99.7 F H 09/03/19 14:27 Pulse Rate 80 09/03/19 14:27 Respiratory Rate 17 09/03/19 14:27 Blood Pressure 112/45 L 09/03/19 14:27 O2 Sat by Pulse Oximetry (%) 97 09/03/19 09:00 Constitutional: Yes: Calm Eyes: Yes: Conjunctiva Clear HENT: Yes: Atraumatic Cardiovascular: Yes: S1, S2 Respiratory: Yes: CTA Bilaterally Gastrointestinal: Yes: Soft Musculoskeletal: Yes: WNL Edema: No Integumentary: Yes: WNL Neurological: Yes: Lethargy Labs: CBC, BMP 09/03/19 06:40 09/03/19 06:40 INR, PTT INR 1.08 (0.83-1.09) 08/31/19 05:10 Problem List - Problems (1) Hip fracture, right Code(s): S72.001A - FRACTURE OF UNSP PART OF NECK OF RIGHT FEMUR, INIT (2) Hypertension Code(s): I10 - ESSENTIAL (PRIMARY) HYPERTENSION Qualifiers: Hypertension type: essential hypertension Qualified Code(s): I10 - Essential (primary) hypertension Assessment/Plan Current Medications Generic Name Dose Route Start Last Admin Trade Name Freq PRN Reason Stop Dose Admin Acetaminophen 650 mg 09/01/19 13:30 09/03/19 12:55 Tylenol - PO Not Given Q6H [facility] Amlodipine Besylate 10 mg 09/02/19 10:00 09/03/19 10:14 Norvasc - PO 10 mg DAILY [facility] Administration Docusate Sodium 100 mg 09/01/19 22:00 09/03/19 10:15 Colace - PO Not Given BID [facility] Enoxaparin Sodium 40 mg 09/02/19 10:00 09/03/19 10:15 Lovenox - SQ 40 mg DAILY [facility] Administration Sodium Chloride 1,000 mls @ 42 mls/hr 09/01/19 12:57 09/02/19 12:40 Normal Saline - IV Not Given ASDIR [facility] Ertapenem 1 gm/ Sodium 50 mls @ 100 mls/hr 09/03/19 10:00 09/03/19 10:15 Chloride IVPB 100 mls/hr DAILY [facility] Administration Vancomycin HCl 1,000 mg in 250 mls @ 200 mls/hr 09/03/19 17:30 Vancomycin (Pre-Docked) IVPB Q24H [facility] Protocol Insulin Aspart 1 vial 09/01/19 16:30 09/03/19 11:52 Novolog Vial Sliding Scale - SQ 6 units ACHS [facility] Administration Protocol Insulin Detemir 5 units 09/03/19 07:00 09/03/19 07:48 Levemir Vial SQ 5 units AM [facility] Administration Lorazepam 1 mg 09/02/19 15:22 09/03/19 02:46 Ativan Injection - IM 1 mg Q6H PRN Administration AGITATION Miconazole Nitrate 1 applic 09/01/19 22:00 09/03/19 00:32 Monistat-7 Vaginal Cream - VG 09/07/19 22:01 Not Given HS [facility] Morphine Sulfate 2 mg 09/01/19 12:57 09/03/19 10:22 Morphine Sulfate IVPUSH 2 mg Q4H PRN Administration PAIN LEVEL 4 - 6 Naloxone HCl 0.4 mg 09/01/19 13:21 Narcan - IVPUSH ONCE PRN Sedation Ondansetron HCl 4 mg 09/01/19 13:21 Zofran Injection IVPUSH ONCE PRN NAUSEA Oxycodone HCl 5 mg 09/01/19 13:21 Roxicodone - PO Q3H PRN Mild Pain 1-3 Oxycodone HCl 10 mg 09/01/19 13:21 Roxicodone - PO Q3H PRN PAIN 7-10 Sertraline HCl 25 mg 09/02/19 10:00 09/03/19 10:14 Zoloft - PO 25 mg DAILY [facility] Administration Valsartan 80 mg 09/02/19 10:00 09/03/19 10:15 Diovan - PO 80 mg DAILY [facility] Administration Impression 1. azotemia/dehydration 2. dm 3. hip fracture 4. htn 5. s/p fall 6. UTI Plan - change fluids to 1/2 ns - repeat labs in am - discussed with family - cont abx - avoid nsaids - repeat ua once uti clears
[2019-09-03] MEDS: VANCOMYCIN 1 GRAM (PRE-DOCKED) 1,000 MG/250 ML BAG IVPB SCH (17:11)
[2019-09-03] MEDS: SODIUM CHLORIDE 1,000 ML IV SCH (17:37)
[2019-09-03] MEDS ORDERED: ACETAMINOPHEN 500 MG TABLET (FP) PO PRN (18:27)
[2019-09-03] MEDS: SODIUM CHLORIDE 0.45% 1,000 ML IV SCH (18:37)
[2019-09-04] MEDS: LORazepam 2 MG/ML SDV VIAL IM PRN (00:41)
[2019-09-04] MEDS: ACETAMINOPHEN 325 MG TABLET (FP) PO SCH ×4 (02:36→20:00)
[2019-09-04] MEDS: MORPHINE SULFATE 2 MG/ML VIAL IVPUSH PRN (04:10)
[2019-09-04 06:28] LABS: BASO % 0.6 % (0-2.0); EOS % 2.5 % (0-4.5); HEMATOCRIT 27.3 % (32.4-45.2); HEMOGLOBIN 9.2 GM/dL (10.7-15.3); LYMPH % 14.3 % (8-40); MCH 27.8 pg (25.7-33.7); MCHC 33.6 g/dl (32.0-36.0); MEAN CELL VOLUME 82.7 fl (80-96); MEAN PLT VOLUME 10.2 fl (7.5-11.1); MONO % 9.1 % (3.8-10.2); NEUT % 73.5 % (42.8-82.8); PLATELET COUNT 254 K/MM3 (134-434); RBC 3.31 M/mm3 (3.60-5.2); RDW 13.1 % (11.6-15.6); WHITE BLOOD COUNT 9.7 K/mm3 (4.0-10.0)
[2019-09-04] MEDS: INSULIN SLIDING SCALE (NOVOLOG) 1 VIAL SQ SCH ×4 (06:47→23:09)
[2019-09-04] MEDS: INSULIN (LEVEMIR) 100 UNITS/ML UNITS SQ SCH (06:49)
[2019-09-04 07:54] LABS: ALBUMIN 2.3 g/dl (3.4-5.0); BILIRUBIN,TOTAL 0.7 mg/dL (0.2-1); BLOOD UREA NITROGEN 33.3 mg/dL (7-18); CALCIUM 9.4 mg/dL (8.5-10.1); CREATININE 0.9 mg/dL (0.55-1.3); POTASSIUM 3.7 mmol/L (3.5-5.1); TOT PROT 5.6 g/dl (6.4-8.2)
--- NOTE | 2019-09-04 08:26 | PN ---
Progress Note, Physician History of Present Illness: 88-year-old female history of diastolic heart failure, hypertension depression presented to ED after sustaining a mechanical fall with right femoral neck fracture evaluated by orthopedics, yesterday patient underwent surgery, became very confused and combative. - Current Medication List Current Medications: Active Medications Acetaminophen (Tylenol -) 650 mg PO Q6H [facility] Last Admin: 09/04/19 06:50 Dose: Not Given Acetaminophen (Tylenol -) 1,000 mg PO Q6H PRN PRN Reason: FEVER Last Admin: 09/03/19 18:37 Dose: 1,000 mg Amlodipine Besylate (Norvasc -) 10 mg PO DAILY [facility] Last Admin: 09/03/19 10:14 Dose: 10 mg Docusate Sodium (Colace -) 100 mg PO BID [facility] Last Admin: 09/03/19 22:56 Dose: Not Given Enoxaparin Sodium (Lovenox -) 40 mg SQ DAILY [facility] Last Admin: 09/03/19 10:15 Dose: 40 mg Ertapenem 1 gm/ Sodium (Chloride) 50 mls @ 100 mls/hr IVPB DAILY [facility] Last Admin: 09/03/19 10:15 Dose: 100 mls/hr Vancomycin HCl (Vancomycin (Pre-Docked)) 1,000 mg in 250 mls @ 200 mls/hr IVPB Q24H [facility]; Protocol Last Admin: 09/03/19 17:11 Dose: 200 mls/hr Sodium Chloride (1/2 Normal Saline) 1,000 mls @ 42 mls/hr IV ASDIR [facility] Last Admin: 09/03/19 18:37 Dose: 42 mls/hr Insulin Aspart (Novolog Vial Sliding Scale -) 1 vial SQ ACHS [facility]; Protocol Last Admin: 09/04/19 06:47 Dose: 6 units Insulin Detemir (Levemir Vial) 5 units SQ AM [facility] Last Admin: 09/04/19 06:49 Dose: 5 units Lorazepam (Ativan Injection -) 1 mg IM Q6H PRN PRN Reason: AGITATION Last Admin: 09/04/19 00:41 Dose: 1 mg Miconazole Nitrate (Monistat-7 Vaginal Cream -) 1 applic VG HS [facility] Stop: 09/07/19 22:01 Last Admin: 09/03/19 22:55 Dose: 1 applic Morphine Sulfate (Morphine Sulfate) 2 mg IVPUSH Q4H PRN PRN Reason: PAIN LEVEL 4 - 6 Last Admin: 09/04/19 04:10 Dose: 2 mg Naloxone HCl (Narcan -) 0.4 mg IVPUSH ONCE PRN PRN Reason: Sedation Ondansetron HCl (Zofran Injection) 4 mg IVPUSH ONCE PRN PRN Reason: NAUSEA Oxycodone HCl (Roxicodone -) 5 mg PO Q3H PRN PRN Reason: Mild Pain 1-3 Last Admin: 09/03/19 17:38 Dose: 5 mg Oxycodone HCl (Roxicodone -) 10 mg PO Q3H PRN PRN Reason: PAIN 7-10 Sertraline HCl (Zoloft -) 25 mg PO DAILY [facility] Last Admin: 09/03/19 10:14 Dose: 25 mg Valsartan (Diovan -) 80 mg PO DAILY [facility] Last Admin: 09/03/19 10:15 Dose: 80 mg - Objective Vital Signs: Vital Signs Temperature 98.1 F 09/04/19 05:52 Pulse Rate 78 09/04/19 05:52 Respiratory Rate 16 09/04/19 05:52 Blood Pressure 143/58 L 09/04/19 05:52 O2 Sat by Pulse Oximetry (%) 97 09/03/19 21:00 General: Elderly female, comfortable, not in distress HEENT; mucous membranes moist, no anemia, no jaundice, PERRLA, no nystagmus Neck: No JVD, supple, no bruit, thyroid palpably normal, normal carotid pulsations. Chest: Nontender, clear to auscultation bilaterally CVS: S1-S2 systolic murmur no/gallop/rub Abdomen: Nondistended, soft, bowel sounds present. 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 Impression: 1. mechanical fall right hip fracture status post surgery postoperative day 2 . 2. Toxic metabolic encephalopathy due to UTI: Patient has positive UA with worsening mental status since hospitalization, urine is growing gram-negative bacilli, previously grew ESBL, continue current antibiotic. 3.uncontrolled type 2 diabetes mellitus: Hemoglobin A1c 13 will optimize glycemic control increase 4. hypertension: Continue current medication at present blood pressure is well controlled Rest continue current management Labs: CBC, BMP 09/04/19 05:30 09/04/19 05:30 INR, PTT INR 1.08 (0.83-1.09) 08/31/19 05:10 Problem List - Problems (1) Hip fracture, right Assessment/Plan: Standing a mechanical fall, evaluate with orthopedics recommended surgery at after clearance from cardiology, they cleared by cardiology, pain control, non- weightbearing, n.p.o. after midnight for surgery in the morning, [facility] for [place] prophylaxis , today scheduled for the surgery Code(s): S72.001A - FRACTURE OF UNSP PART OF NECK OF RIGHT FEMUR, INIT (2) Hypertension Assessment/Plan: Continue home medication at present blood pressure is well controlled, continue amlodipine and valsartan Code(s): I10 - ESSENTIAL (PRIMARY) HYPERTENSION (3) Cardiac murmur Assessment/Plan: Patient has systolic cardiac murmur in aortic area but no significant hemodynamic abnormality, echo shows aortic valve thickening moderate TR and MR: Evaluated by cardiology consult cleared for surgery. Code(s): R01.1 - CARDIAC MURMUR, UNSPECIFIED (4) Anxiety Assessment/Plan: Continue PRN lorazepam. Code(s): F41.9 - ANXIETY DISORDER, UNSPECIFIED (5) UTI (urinary tract infection) Assessment/Plan: On IV ceftriaxone F/u culture Code(s): N39.0 - URINARY TRACT INFECTION, SITE NOT SPECIFIED
[2019-09-04] MEDS: amLODIPine BESYLATE 10 MG TABLET (FP) PO SCH (10:23)
[2019-09-04] MEDS: DOCUSATE SODIUM 100 MG CAPSULE (FP) PO SCH ×3 (10:23→22:58)
[2019-09-04] MEDS: ERTAPENEM SODIUM 1 GM in SODIUM CHLORIDE 50 ML IVPB SCH (10:23)
[2019-09-04] MEDS: SERTRALINE HCL 25 MG TABLET (FP) PO SCH (10:23)
[2019-09-04] MEDS: VALSARTAN 80 MG TABLET (UD) PO SCH (10:23)
[2019-09-04] MEDS: ENOXAPARIN NA (PORCINE) 40 MG/0.4 ML DISP.SYRIN SQ SCH (10:23)
--- NOTE | 2019-09-04 10:26 | PN ---
Progress Note, Physician Chief Complaint: Events noted Confused History of Present Illness: Patient was seen and examined. Awake but confused. Chart was reviewed Discussed with family Does not appear to be having chest pain or shortness of breath - Current Medication List Current Medications: Active Medications Acetaminophen (Tylenol -) 650 mg PO Q6H [facility] Last Admin: 09/04/19 06:50 Dose: Not Given Acetaminophen (Tylenol -) 1,000 mg PO Q6H PRN PRN Reason: FEVER Last Admin: 09/03/19 18:37 Dose: 1,000 mg Amlodipine Besylate (Norvasc -) 10 mg PO DAILY [facility] Last Admin: 09/03/19 10:14 Dose: 10 mg Docusate Sodium (Colace -) 100 mg PO BID [facility] Last Admin: 09/03/19 22:56 Dose: Not Given Enoxaparin Sodium (Lovenox -) 40 mg SQ DAILY [facility] Last Admin: 09/03/19 10:15 Dose: 40 mg Ertapenem 1 gm/ Sodium (Chloride) 50 mls @ 100 mls/hr IVPB DAILY [facility] Last Admin: 09/03/19 10:15 Dose: 100 mls/hr Vancomycin HCl (Vancomycin (Pre-Docked)) 1,000 mg in 250 mls @ 200 mls/hr IVPB Q24H [facility]; Protocol Last Admin: 09/03/19 17:11 Dose: 200 mls/hr Sodium Chloride (1/2 Normal Saline) 1,000 mls @ 42 mls/hr IV ASDIR [facility] Last Admin: 09/03/19 18:37 Dose: 42 mls/hr Insulin Aspart (Novolog Vial Sliding Scale -) 1 vial SQ ACHS [facility]; Protocol Last Admin: 09/04/19 06:47 Dose: 6 units Insulin Detemir (Levemir Vial) 5 units SQ AM [facility] Last Admin: 09/04/19 06:49 Dose: 5 units Lorazepam (Ativan Injection -) 1 mg IM Q6H PRN PRN Reason: AGITATION Last Admin: 09/04/19 00:41 Dose: 1 mg Miconazole Nitrate (Monistat-7 Vaginal Cream -) 1 applic VG HS [facility] Stop: 09/07/19 22:01 Last Admin: 09/03/19 22:55 Dose: 1 applic Morphine Sulfate (Morphine Sulfate) 2 mg IVPUSH Q4H PRN PRN Reason: PAIN LEVEL 4 - 6 Last Admin: 09/04/19 04:10 Dose: 2 mg Naloxone HCl (Narcan -) 0.4 mg IVPUSH ONCE PRN PRN Reason: Sedation Ondansetron HCl (Zofran Injection) 4 mg IVPUSH ONCE PRN PRN Reason: NAUSEA Oxycodone HCl (Roxicodone -) 5 mg PO Q3H PRN PRN Reason: Mild Pain 1-3 Last Admin: 09/03/19 17:38 Dose: 5 mg Oxycodone HCl (Roxicodone -) 10 mg PO Q3H PRN PRN Reason: PAIN 7-10 Sertraline HCl (Zoloft -) 25 mg PO DAILY [facility] Last Admin: 09/03/19 10:14 Dose: 25 mg Valsartan (Diovan -) 80 mg PO DAILY [facility] Last Admin: 09/03/19 10:15 Dose: 80 mg - Objective Vital Signs: Vital Signs Temperature 98.1 F 09/04/19 05:52 Pulse Rate 84 09/04/19 08:43 Respiratory Rate 18 09/04/19 08:43 Blood Pressure 153/72 09/04/19 08:43 O2 Sat by Pulse Oximetry (%) 97 09/03/19 21:00 Neck: Yes: Supple Cardiovascular: Yes: Regular Rate and Rhythm, S1, S2 Respiratory: Yes: Diminished Gastrointestinal: Yes: Normal Bowel Sounds, Soft. No: Tenderness Edema: No Labs: CBC, BMP 09/04/19 05:30 09/04/19 05:30 Problem List - Problems (1) Diabetes mellitus Code(s): E11.9 - TYPE 2 DIABETES MELLITUS WITHOUT COMPLICATIONS (2) Hip fracture, right Code(s): S72.001A - FRACTURE OF UNSP PART OF NECK OF RIGHT FEMUR, INIT (3) Mitral regurgitation Code(s): I34.0 - NONRHEUMATIC MITRAL (VALVE) INSUFFICIENCY Qualifiers: Cardiac valve disease etiology: nonrheumatic Qualified Code(s): I34.0 - Nonrheumatic mitral (valve) insufficiency (4) Aortic regurgitation Code(s): I35.1 - NONRHEUMATIC AORTIC (VALVE) INSUFFICIENCY Qualifiers: Cardiac valve disease etiology: nonrheumatic Qualified Code(s): I35.1 - Nonrheumatic aortic (valve) insufficiency (5) Hypertension Code(s): I10 - ESSENTIAL (PRIMARY) HYPERTENSION Qualifiers: Hypertension type: essential hypertension Qualified Code(s): I10 - Essential (primary) hypertension Assessment/Plan 1. Post fall resulting in right IT fracture POD#3 right IM gamma nail 2. Demand ischemia 3. HTN 4. Diabetes Mellitus 5. Non-compliant 6. Toxic metabolic encephalopathy PLAN: 1. Continue Diovan 80 mg QD and Amlodipine 10 mg QD as tolerated 2. Troponin plateaued (0.08 on 09/03) 3. Analgesia as needed. Reduce use of Lorazapam 4. DVT and GI prophylaxis 5. Empiric antibiotics coverage Monitor mental status Further plans are to follow Shyam Paris MD
--- NOTE | 2019-09-04 11:16 | PN ---
Progress Note (short form) - Note Progress Note: awake now but agitated recognizes her family members Vital Signs Period Temp Pulse Resp BP Sys/Powers Pulse Ox Last 24 Hr 97.7 F-110.5 F 75-84 16-18 112-153/39-72 97 cor-rrr lungs clear abd soft,nt ext incision clean and dry ecchymoses right hand CBC, BMP 09/04/19 05:30 09/04/19 05:30 Microbiology 09/02/19 17:20 Blood - Peripheral Venous Blood Culture - Preliminary NO GROWTH OBTAINED AFTER 24 HOURS, INCUBATION TO CONTINUE FOR 4 DAYS. 09/02/19 17:20 Blood - Peripheral Venous Blood Culture - Preliminary NO GROWTH OBTAINED AFTER 24 HOURS, INCUBATION TO CONTINUE FOR 4 DAYS. URINE CULTURE pending a/p fevers-resolving postop day #3 s/p gamma nail continue vanco/ertapenem continue f/u d/w family at bedside Problem List - Problems (1) Postoperative fever Code(s): R50.82 - POSTPROCEDURAL FEVER (2) Hip fracture, right Code(s): S72.001A - FRACTURE OF UNSP PART OF NECK OF RIGHT FEMUR, INIT (3) UTI (urinary tract infection) Code(s): N39.0 - URINARY TRACT INFECTION, SITE NOT SPECIFIED
[2019-09-04] MEDS ORDERED: LORazepam 2 MG/ML SDV VIAL IM PRN (12:03)
--- NOTE | 2019-09-04 12:15 | PN ---
Progress Note (short form) - Note Progress Note: Ortho Pt seen and examined s/p right IM gamma nail pod #3 Selected Entries 09/04/19 09/04/19 05:52 08:43 Temperature 98.1 F Pulse Rate 84 Respiratory 18 Rate Blood Pressure 153/72 Laboratory Tests 09/04/19 05:30 WBC 9.7 Hgb 9.2 L Hct 27.3 L Plt Count 254 D dressing c/d/i, calf soft, nt nvi a/p Abx as per ID PT if able, PWB dvt ppx pain control d/c planning
[2019-09-04] MEDS: QUEtiapine FUMARATE 25 MG TABLET PO SCH (15:29)
[2019-09-04] MEDS ORDERED: ACETAMINOPHEN 1000 MG/100 ML VIAL (NON FORMULARY) IVPB ONE (16:45)
[2019-09-04] MEDS: VANCOMYCIN 1 GRAM (PRE-DOCKED) 1,000 MG/250 ML BAG IVPB SCH (17:08)
[2019-09-04] MEDS: SODIUM CHLORIDE 0.45% 1,000 ML IV SCH (19:12)
--- NOTE | 2019-09-04 22:16 | PN ---
Progress Note (short form) - Note Progress Note: covering dr das Problems 1. azotemia/dehydration 2. dm 3. hip fracture/ s/p gamma nail 4. htn 5. s/p fall 6. UTI/ fevers on abx Current Medications Acetaminophen (Tylenol -) 650 mg PO Q6H [facility] Last Admin: 09/04/19 13:40 Dose: Not Given Acetaminophen (Tylenol -) 1,000 mg PO Q6H PRN PRN Reason: FEVER Last Admin: 09/03/19 18:37 Dose: 1,000 mg Amlodipine Besylate (Norvasc -) 10 mg PO DAILY [facility] Last Admin: 09/04/19 10:23 Dose: 10 mg Docusate Sodium (Colace -) 100 mg PO BID [facility] Last Admin: 09/04/19 10:38 Dose: Not Given Enoxaparin Sodium (Lovenox -) 40 mg SQ DAILY [facility] Last Admin: 09/04/19 10:23 Dose: 40 mg Ertapenem 1 gm/ Sodium (Chloride) 50 mls @ 100 mls/hr IVPB DAILY [facility] Last Admin: 09/04/19 10:23 Dose: 100 mls/hr Vancomycin HCl (Vancomycin (Pre-Docked)) 1,000 mg in 250 mls @ 200 mls/hr IVPB Q24H [facility]; Protocol Last Admin: 09/04/19 17:08 Dose: 200 mls/hr Sodium Chloride (1/2 Normal Saline) 1,000 mls @ 42 mls/hr IV ASDIR [facility] Last Admin: 09/04/19 19:12 Dose: Not Given Insulin Aspart (Novolog Vial Sliding Scale -) 1 vial SQ ACHS [facility]; Protocol Last Admin: 09/04/19 16:37 Dose: Not Given Insulin Detemir (Levemir Vial) 5 units SQ AM [facility] Last Admin: 09/04/19 06:49 Dose: 5 units Lorazepam (Ativan Injection -) 1 mg IM Q8H PRN PRN Reason: AGITATION Miconazole Nitrate (Monistat-7 Vaginal Cream -) 1 applic VG HS [facility] Stop: 09/07/19 22:01 Last Admin: 09/03/19 22:55 Dose: 1 applic Morphine Sulfate (Morphine Sulfate) 2 mg IVPUSH Q4H PRN PRN Reason: PAIN LEVEL 4 - 6 Last Admin: 09/04/19 04:10 Dose: 2 mg Naloxone HCl (Narcan -) 0.4 mg IVPUSH ONCE PRN PRN Reason: Sedation Ondansetron HCl (Zofran Injection) 4 mg IVPUSH ONCE PRN PRN Reason: NAUSEA Oxycodone HCl (Roxicodone -) 5 mg PO Q3H PRN PRN Reason: Mild Pain 1-3 Last Admin: 09/03/19 17:38 Dose: 5 mg Oxycodone HCl (Roxicodone -) 10 mg PO Q3H PRN PRN Reason: PAIN 7-10 Quetiapine Fumarate (Seroquel -) 12.5 mg PO DAILY [facility] Last Admin: 09/04/19 15:29 Dose: Not Given Sertraline HCl (Zoloft -) 25 mg PO DAILY [facility] Last Admin: 09/04/19 10:23 Dose: 25 mg Valsartan (Diovan -) 80 mg PO DAILY [facility] Last Admin: 09/04/19 10:23 Dose: 80 mg Last Vital Signs Temp Pulse Resp BP Pulse Ox 100.4 F H 88 18 138/52 L 97 09/04/19 18:00 09/04/19 18:00 09/04/19 18:00 09/04/19 18:00 09/04/19 09:00 Lungs clear Heart reg Abd soft nontender Ext no edema CBC, BMP 09/04/19 05:30 09/04/19 05:30 IMP Prerenal azotemia/dehydration dm poor control hip fracture htn well controlled s/p fall UTI- low grade temp today Plan continue current rx -f/u labs in am - cont abx - avoid nsaids
[2019-09-04] MEDS: MICONAZOLE NITRATE 2% VAGINAL CREAM 45 GM TUBE VG SCH (23:09)
[2019-09-05] MEDS: SODIUM CHLORIDE 0.45% 1,000 ML IV SCH ×2 (00:18→18:55)
[2019-09-05] MEDS: ACETAMINOPHEN 325 MG TABLET (FP) PO SCH ×5 (01:36→19:31)
[2019-09-05] MEDS ORDERED: ACETAMINOPHEN 1000 MG/100 ML VIAL (NON FORMULARY) IVPB ONE (01:53)
[2019-09-05] MEDS: MORPHINE SULFATE 2 MG/ML VIAL IVPUSH PRN (01:59)
[2019-09-05] MEDS: INSULIN (LEVEMIR) 100 UNITS/ML UNITS SQ SCH (06:53)
[2019-09-05] MEDS: INSULIN SLIDING SCALE (NOVOLOG) 1 VIAL SQ SCH ×4 (06:54→21:37)
[2019-09-05 07:15] LABS: BASO % 1.1 % (0-2.0); EOS % 3.2 % (0-4.5); HEMOGLOBIN 9.5 GM/dL (10.7-15.3); LYMPH % 21.1 % (8-40); MCH 27.3 pg (25.7-33.7); MCHC 32.6 g/dl (32.0-36.0); MEAN CELL VOLUME 83.9 fl (80-96); MEAN PLT VOLUME 9.9 fl (7.5-11.1); MONO % 9.9 % (3.8-10.2); NEUT % 64.7 % (42.8-82.8); PLATELET COUNT 327 K/MM3 (134-434); RBC 3.46 M/mm3 (3.60-5.2); RDW 13.1 % (11.6-15.6)
[2019-09-05 07:38] LABS: BLOOD UREA NITROGEN 34.8 mg/dL (7-18); CALCIUM 9.4 mg/dL (8.5-10.1); CREATININE 0.9 mg/dL (0.55-1.3); POTASSIUM 4.3 mmol/L (3.5-5.1)
--- NOTE | 2019-09-05 07:56 | PN ---
Progress Note, Physician Chief Complaint: Patient a bit less confused, but still episodes of agitation. History of Present Illness: 88-year-old female history of diastolic heart failure, hypertension depression presented to ED after sustaining a mechanical fall with right femoral neck fracture evaluated by orthopedics, yesterday patient underwent right hip gamma nail, became very confused and combative. Patient is on IV ertapenem and today vancomycin is stopped as per ID recommendations. - Current Medication List Current Medications: Active Medications Acetaminophen (Tylenol -) 650 mg PO Q6H [facility] Last Admin: 09/05/19 01:36 Dose: Not Given Amlodipine Besylate (Norvasc -) 10 mg PO DAILY [facility] Last Admin: 09/04/19 10:23 Dose: 10 mg Docusate Sodium (Colace -) 100 mg PO BID [facility] Last Admin: 09/04/19 22:58 Dose: Not Given Enoxaparin Sodium (Lovenox -) 40 mg SQ DAILY [facility] Last Admin: 09/04/19 10:23 Dose: 40 mg Ertapenem 1 gm/ Sodium (Chloride) 50 mls @ 100 mls/hr IVPB DAILY [facility] Last Admin: 09/04/19 10:23 Dose: 100 mls/hr Vancomycin HCl (Vancomycin (Pre-Docked)) 1,000 mg in 250 mls @ 200 mls/hr IVPB Q24H [facility]; Protocol Last Admin: 09/04/19 17:08 Dose: 200 mls/hr Sodium Chloride (1/2 Normal Saline) 1,000 mls @ 42 mls/hr IV ASDIR [facility] Last Admin: 09/05/19 00:18 Dose: 42 mls/hr Insulin Aspart (Novolog Vial Sliding Scale -) 1 vial SQ ACHS [facility]; Protocol Last Admin: 09/05/19 06:54 Dose: 4 units Insulin Detemir (Levemir Vial) 5 units SQ AM [facility] Last Admin: 09/05/19 06:53 Dose: 5 units Lorazepam (Ativan Injection -) 1 mg IM Q8H PRN PRN Reason: AGITATION Miconazole Nitrate (Monistat-7 Vaginal Cream -) 1 applic VG HS [facility] Stop: 09/07/19 22:01 Last Admin: 09/04/19 23:09 Dose: 1 applic Morphine Sulfate (Morphine Sulfate) 2 mg IVPUSH Q4H PRN PRN Reason: PAIN LEVEL 4 - 6 Last Admin: 09/05/19 01:59 Dose: 2 mg Naloxone HCl (Narcan -) 0.4 mg IVPUSH ONCE PRN PRN Reason: Sedation Ondansetron HCl (Zofran Injection) 4 mg IVPUSH ONCE PRN PRN Reason: NAUSEA Oxycodone HCl (Roxicodone -) 5 mg PO Q3H PRN PRN Reason: Mild Pain 1-3 Last Admin: 09/03/19 17:38 Dose: 5 mg Oxycodone HCl (Roxicodone -) 10 mg PO Q3H PRN PRN Reason: PAIN 7-10 Quetiapine Fumarate (Seroquel -) 12.5 mg PO DAILY [facility] Last Admin: 09/04/19 15:29 Dose: Not Given Sertraline HCl (Zoloft -) 25 mg PO DAILY [facility] Last Admin: 09/04/19 10:23 Dose: 25 mg Valsartan (Diovan -) 80 mg PO DAILY [facility] Last Admin: 09/04/19 10:23 Dose: 80 mg - Objective Vital Signs: Vital Signs Temperature 98.2 F 09/05/19 05:44 Pulse Rate 82 09/05/19 05:44 Respiratory Rate 16 09/05/19 05:44 Blood Pressure 147/31 L 09/05/19 05:44 O2 Sat by Pulse Oximetry (%) 97 09/04/19 21:00 General: Elderly female, comfortable, not in distress HEENT; mucous membranes moist, no anemia, no jaundice, PERRLA, no nystagmus Neck: No JVD, supple, no bruit, thyroid palpably normal, normal carotid pulsations. Chest: Nontender, clear to auscultation bilaterally CVS: S1-S2 systolic murmur no/gallop/rub Abdomen: Nondistended, soft, bowel sounds present. Extremities: Right hip s/p surgery no edema., No calf tenderness, pulses present [employer] C[employer]IST: AO X3 , no gross motor sensory deficit Labs: CBC, BMP 09/05/19 06:15 09/05/19 06:15 INR, PTT INR 1.08 (0.83-1.09) 08/31/19 05:10 Problem List - Problems (1) Hip fracture, right Assessment/Plan: Standing a mechanical fall, evaluate with orthopedics underwent gamma nail insertion, postop management as per surgery, patient cannot participate in PT due to altered mental status.POD 3 Code(s): S72.001A - FRACTURE OF UNSP PART OF NECK OF RIGHT FEMUR, INIT (2) Hypertension Assessment/Plan: Continue home medication at present blood pressure is well controlled, continue amlodipine and valsartan Code(s): I10 - ESSENTIAL (PRIMARY) HYPERTENSION (3) Cardiac murmur Assessment/Plan: Patient has systolic cardiac murmur in aortic area but no significant hemodynamic abnormality, echo shows aortic valve thickening moderate TR and MR: Evaluated by cardiology consult cleared for surgery. Code(s): R01.1 - CARDIAC MURMUR, UNSPECIFIED (4) Anxiety Assessment/Plan: Continue PRN lorazepam. Code(s): F41.9 - ANXIETY DISORDER, UNSPECIFIED (5) UTI (urinary tract infection) Assessment/Plan: On IV ertapenem (3rd day). DC vANCOMYCIN We will follow-up ID recommendations Code(s): N39.0 - URINARY TRACT INFECTION, SITE NOT SPECIFIED (6) Toxic metabolic encephalopathy Assessment/Plan: Previously patient has history of agitation and confusion in the setting of UTI as per family similar presentation this time in the setting of UTI and right femur fracture, continue Seroquel and PRN lorazepam. Problems reviewed: Yes Code(s): G92 - TOXIC ENCEPHALOPATHY (7) Uncontrolled type 2 diabetes mellitus Assessment/Plan: Hemoglobin A1c 14, continue correction dose insulin will add basal Levemir 8 units Problems reviewed: Yes Code(s): E11.65 - TYPE 2 DIABETES MELLITUS WITH HYPERGLYCEMIA (8) Dehydration Assessment/Plan: Due to agitation and poor p.o. intake follow-up BMP continue IV hydration. Problems reviewed: Yes Code(s): E86.0 - DEHYDRATION
--- NOTE | 2019-09-05 09:59 | PN ---
Progress Note, Physician Chief Complaint: Events noted Not in distress History of Present Illness: Patient was seen and examined. Awake but confused. Chart was reviewed Does not appear to be having chest pain or shortness of breath - Current Medication List Current Medications: Active Medications Acetaminophen (Tylenol -) 650 mg PO Q6H [facility] Last Admin: 09/05/19 01:36 Dose: Not Given Amlodipine Besylate (Norvasc -) 10 mg PO DAILY [facility] Last Admin: 09/04/19 10:23 Dose: 10 mg Docusate Sodium (Colace -) 100 mg PO BID [facility] Last Admin: 09/04/19 22:58 Dose: Not Given Enoxaparin Sodium (Lovenox -) 40 mg SQ DAILY [facility] Last Admin: 09/04/19 10:23 Dose: 40 mg Ertapenem 1 gm/ Sodium (Chloride) 50 mls @ 100 mls/hr IVPB DAILY [facility] Last Admin: 09/04/19 10:23 Dose: 100 mls/hr Vancomycin HCl (Vancomycin (Pre-Docked)) 1,000 mg in 250 mls @ 200 mls/hr IVPB Q24H [facility]; Protocol Last Admin: 09/04/19 17:08 Dose: 200 mls/hr Sodium Chloride (1/2 Normal Saline) 1,000 mls @ 42 mls/hr IV ASDIR [facility] Last Admin: 09/05/19 00:18 Dose: 42 mls/hr Insulin Aspart (Novolog Vial Sliding Scale -) 1 vial SQ ACHS [facility]; Protocol Last Admin: 09/05/19 06:54 Dose: 4 units Insulin Detemir (Levemir Vial) 8 units SQ AM [facility] Lorazepam (Ativan Injection -) 1 mg IM Q8H PRN PRN Reason: AGITATION Miconazole Nitrate (Monistat-7 Vaginal Cream -) 1 applic VG HS [facility] Stop: 09/07/19 22:01 Last Admin: 09/04/19 23:09 Dose: 1 applic Morphine Sulfate (Morphine Sulfate) 2 mg IVPUSH Q4H PRN PRN Reason: PAIN LEVEL 4 - 6 Last Admin: 09/05/19 01:59 Dose: 2 mg Naloxone HCl (Narcan -) 0.4 mg IVPUSH ONCE PRN PRN Reason: Sedation Ondansetron HCl (Zofran Injection) 4 mg IVPUSH ONCE PRN PRN Reason: NAUSEA Oxycodone HCl (Roxicodone -) 5 mg PO Q3H PRN PRN Reason: Mild Pain 1-3 Last Admin: 09/03/19 17:38 Dose: 5 mg Oxycodone HCl (Roxicodone -) 10 mg PO Q3H PRN PRN Reason: PAIN 7-10 Quetiapine Fumarate (Seroquel -) 12.5 mg PO DAILY [facility] Last Admin: 09/04/19 15:29 Dose: Not Given Sertraline HCl (Zoloft -) 25 mg PO DAILY [facility] Last Admin: 09/04/19 10:23 Dose: 25 mg Valsartan (Diovan -) 80 mg PO DAILY [facility] Last Admin: 09/04/19 10:23 Dose: 80 mg - Objective Vital Signs: Vital Signs Temperature 98.8 F 09/05/19 08:17 Pulse Rate 78 09/05/19 08:17 Respiratory Rate 18 09/05/19 08:17 Blood Pressure 110/46 L 09/05/19 08:17 O2 Sat by Pulse Oximetry (%) 97 09/04/19 21:00 Neck: Yes: Supple Cardiovascular: Yes: Regular Rate and Rhythm, S1, S2 Respiratory: Yes: Diminished Gastrointestinal: Yes: Normal Bowel Sounds, Soft. No: Tenderness Edema: No Labs: CBC, BMP 09/05/19 06:15 09/05/19 06:15 Problem List - Problems (1) Diabetes mellitus Code(s): E11.9 - TYPE 2 DIABETES MELLITUS WITHOUT COMPLICATIONS (2) Hip fracture, right Code(s): S72.001A - FRACTURE OF UNSP PART OF NECK OF RIGHT FEMUR, INIT (3) Mitral regurgitation Code(s): I34.0 - NONRHEUMATIC MITRAL (VALVE) INSUFFICIENCY Qualifiers: Cardiac valve disease etiology: nonrheumatic Qualified Code(s): I34.0 - Nonrheumatic mitral (valve) insufficiency (4) Aortic regurgitation Code(s): I35.1 - NONRHEUMATIC AORTIC (VALVE) INSUFFICIENCY Qualifiers: Cardiac valve disease etiology: nonrheumatic Qualified Code(s): I35.1 - Nonrheumatic aortic (valve) insufficiency (5) Hypertension Code(s): I10 - ESSENTIAL (PRIMARY) HYPERTENSION Qualifiers: Hypertension type: essential hypertension Qualified Code(s): I10 - Essential (primary) hypertension Assessment/Plan 1. Post fall resulting in right IT fracture POD#4 right IM gamma nail 2. Demand ischemia 3. HTN 4. Diabetes Mellitus 5. Non-compliant 6. Toxic metabolic encephalopathy PLAN: 1. Continue Diovan 80 mg QD and Amlodipine 10 mg QD as tolerated 2. Analgesia as needed. Reduce use of Lorazapam 3. DVT and GI prophylaxis 4. Empiric antibiotics coverage 5. Monitor mental status Further plans are to follow Shyam Paris MD
[2019-09-05] MEDS: ERTAPENEM SODIUM 1 GM in SODIUM CHLORIDE 50 ML IVPB SCH (10:04)
[2019-09-05] MEDS: ENOXAPARIN NA (PORCINE) 40 MG/0.4 ML DISP.SYRIN SQ SCH (10:24)
--- NOTE | 2019-09-05 11:03 | PN ---
Progress Note (short form) - Note Progress Note: more conversant today not eating cursing at the staff Vital Signs Period Temp Pulse Resp BP Sys/Powers Pulse Ox Last 24 Hr 98.2 F-101.3 F 76-91 16-18 107-147/31-52 97 cor-rrr lungs clear abd soft,nt ext no edema bruiing right hand fading CBC, BMP 09/05/19 06:15 09/05/19 06:15 Microbiology 09/02/19 17:20 Blood - Peripheral Venous Blood Culture - Preliminary NO GROWTH OBTAINED AFTER 48 HOURS, INCUBATION TO CONTINUE FOR 3 DAYS. 09/02/19 17:20 Blood - Peripheral Venous Blood Culture - Preliminary NO GROWTH OBTAINED AFTER 48 HOURS, INCUBATION TO CONTINUE FOR 3 DAYS. 09/02/19 18:00 Urine - Urine - Catheterized Urine Culture - Final Yeast Like Organism a/p fevers-resolving postop day #4 s/p gamma nail d/c vancomycin still some postop delerium but improving continue ertapenem urine culture sent after antiboitcs were started Problem List - Problems (1) Postoperative fever Code(s): R50.82 - POSTPROCEDURAL FEVER (2) Hip fracture, right Code(s): S72.001A - FRACTURE OF UNSP PART OF NECK OF RIGHT FEMUR, INIT (3) UTI (urinary tract infection) Code(s): N39.0 - URINARY TRACT INFECTION, SITE NOT SPECIFIED
[2019-09-05] MEDS: DOCUSATE SODIUM 100 MG CAPSULE (FP) PO SCH ×2 (11:42→21:37)
[2019-09-05] MEDS: SERTRALINE HCL 25 MG TABLET (FP) PO SCH (11:43)
[2019-09-05] MEDS: QUEtiapine FUMARATE 25 MG TABLET PO SCH (11:43)
[2019-09-05] MEDS: amLODIPine BESYLATE 10 MG TABLET (FP) PO SCH (11:43)
[2019-09-05] MEDS: VALSARTAN 80 MG TABLET (UD) PO SCH (11:43)
[2019-09-05] MEDS: ACETAMINOPHEN 1000 MG/100 ML VIAL (NON FORMULARY) IVPB PRN ×2 (15:37→23:17)
--- NOTE | 2019-09-05 20:03 | PN ---
Progress Note (short form) - Note Progress Note: covering dr das Problems 1. azotemia/dehydration 2. dm 3. hip fracture/ s/p gamma nail 4. htn 5. s/p fall 6. UTI/ fevers on abx Current Medications Acetaminophen (Tylenol -) 650 mg PO Q6H [facility] Last Admin: 09/05/19 19:31 Dose: Not Given Acetaminophen (Ofirmev Injection -) 1,000 mg IVPB Q6H PRN PRN Reason: PAIN Last Admin: 09/05/19 15:37 Dose: 1,000 mg Amlodipine Besylate (Norvasc -) 10 mg PO DAILY [facility] Last Admin: 09/05/19 11:43 Dose: Not Given Docusate Sodium (Colace -) 100 mg PO BID [facility] Last Admin: 09/05/19 11:42 Dose: Not Given Enoxaparin Sodium (Lovenox -) 40 mg SQ DAILY [facility] Last Admin: 09/05/19 10:24 Dose: 40 mg Ertapenem 1 gm/ Sodium (Chloride) 50 mls @ 100 mls/hr IVPB DAILY [facility] Last Admin: 09/05/19 10:04 Dose: 100 mls/hr Sodium Chloride (1/2 Normal Saline) 1,000 mls @ 42 mls/hr IV ASDIR [facility] Last Admin: 09/05/19 18:55 Dose: Not Given Insulin Aspart (Novolog Vial Sliding Scale -) 1 vial SQ ACHS [facility]; Protocol Last Admin: 09/05/19 17:12 Dose: Not Given Insulin Detemir (Levemir Vial) 8 units SQ AM [facility] Lorazepam (Ativan Injection -) 1 mg IM Q8H PRN PRN Reason: AGITATION Miconazole Nitrate (Monistat-7 Vaginal Cream -) 1 applic VG HS [facility] Stop: 09/07/19 22:01 Last Admin: 09/04/19 23:09 Dose: 1 applic Morphine Sulfate (Morphine Sulfate) 2 mg IVPUSH Q4H PRN PRN Reason: PAIN LEVEL 4 - 6 Last Admin: 09/05/19 01:59 Dose: 2 mg Naloxone HCl (Narcan -) 0.4 mg IVPUSH ONCE PRN PRN Reason: Sedation Ondansetron HCl (Zofran Injection) 4 mg IVPUSH ONCE PRN PRN Reason: NAUSEA Oxycodone HCl (Roxicodone -) 5 mg PO Q3H PRN PRN Reason: Mild Pain 1-3 Last Admin: 09/03/19 17:38 Dose: 5 mg Oxycodone HCl (Roxicodone -) 10 mg PO Q3H PRN PRN Reason: PAIN 7-10 Quetiapine Fumarate (Seroquel -) 12.5 mg PO DAILY [facility] Last Admin: 09/05/19 11:43 Dose: Not Given Sertraline HCl (Zoloft -) 25 mg PO DAILY [facility] Last Admin: 09/05/19 11:43 Dose: Not Given Valsartan (Diovan -) 80 mg PO DAILY [facility] Last Admin: 09/05/19 11:43 Dose: Not Given Last Vital Signs Temp Pulse Resp BP Pulse Ox 98.8 F 74 18 139/53 L 98 09/05/19 17:58 09/05/19 17:58 09/05/19 17:58 09/05/19 17:58 09/05/19 09:00 Lungs clear Heart reg Abd soft nontender Ext no edema CBC, BMP 09/05/19 06:15 09/05/19 06:15 CBC, BMP 09/04/19 05:30 09/04/19 05:30 IMP Prerenal azotemia/dehydration dm poor control hip fracture htn well controlled s/p fall UTI- Plan continue current rx -f/u labs in am - cont abx - avoid nsaids
[2019-09-05] MEDS: MICONAZOLE NITRATE 2% VAGINAL CREAM 45 GM TUBE VG SCH (22:45)
[2019-09-06] MEDS: ACETAMINOPHEN 325 MG TABLET (FP) PO SCH ×4 (00:45→18:39)
[2019-09-06] MEDS: INSULIN SLIDING SCALE (NOVOLOG) 1 VIAL SQ SCH ×4 (06:07→21:13)
[2019-09-06] MEDS: INSULIN (LEVEMIR) 100 UNITS/ML UNITS SQ SCH (06:14)
[2019-09-06 07:03] LABS: BASO % 1.1 % (0-2.0); EOS % 3.3 % (0-4.5); HEMATOCRIT 27.5 % (32.4-45.2); HEMOGLOBIN 8.9 GM/dL (10.7-15.3); LYMPH % 19.8 % (8-40); MCH 26.7 pg (25.7-33.7); MCHC 32.3 g/dl (32.0-36.0); MEAN CELL VOLUME 82.9 fl (80-96); MEAN PLT VOLUME 9.7 fl (7.5-11.1); MONO % 9.8 % (3.8-10.2); PLATELET COUNT 305 K/MM3 (134-434); RBC 3.32 M/mm3 (3.60-5.2); RDW 12.7 % (11.6-15.6); WHITE BLOOD COUNT 7.3 K/mm3 (4.0-10.0)
[2019-09-06 07:26] LABS: BLOOD UREA NITROGEN 29.5 mg/dL (7-18); CALCIUM 8.6 mg/dL (8.5-10.1); CREATININE 0.7 mg/dL (0.55-1.3)
--- NOTE | 2019-09-06 07:53 | PN ---
Progress Note (short form) - Note Progress Note: Ortho Pt seen and examined s/p right IM gamma nail pod #5 Selected Entries 09/05/19 22:00 Temperature 97.2 F L Pulse Rate 85 Respiratory 20 Rate Blood Pressure 132/55 L Laboratory Tests 09/06/19 05:55 WBC 7.3 Hgb 8.9 L Hct 27.5 L Plt Count 305 incisions c/d/i, calf soft, nt nvi a/p Abx as per ID PT if able, PWB dvt ppx pain control d/c planning
--- NOTE | 2019-09-06 08:16 | PN ---
Physical Exam: SUBJECTIVE: Patient seen and examined denies nay fever or chills over night , atill confused , on ertapenem and 42 CC of d5 1/2 NS family at bed side POD#5 sugar on low side today 101 poor oral intake OBJECTIVE: Vital Signs Period Temp Pulse Resp BP Sys/Powers Pulse Ox Last 24 Hr 97.2 F-99.4 F 74-86 18-20 110-139/46-56 97-98 GENERAL:confused , delirious HEAD: NC/AT EYES: Pupils equal, round and reactive to light, extraocular movements intact, EARS, NOSE, THROAT: dry mucous membranes. NECK: Normal range of motion, supple LUNGS: Breath sounds equal, clear to auscultation bilaterally. No wheezes, and no crackles. No accessory muscle use. HEART: Regular rate and rhythm, normal S1 and S2,4/6 systolic murmur all over RUSB , LUSB radiated to neck ABDOMEN: Soft, nontender, not distended, normoactive bowel sounds, UPPER EXTREMITIES: 2+ pulses, warm, well-perfused. hand with erythema as she bite her self LOWER EXTREMITIES: 2+ pulses, warm, well-perfused. No calf tenderness. No peripheral edema. right leg S/P gamma Nail IM with stitches , +2 DP, left leg FROM proximal and distal , NEUROLOGICAL: no focal deficit . PSYCHIATRIC: agitated SKIN: Warm, dry, normal turgor, Laboratory Results - last 24 hr 09/05/19 09/05/19 09/05/19 11:35 17:12 21:16 WBC RBC Hgb Hct MCV MCH MCHC RDW Plt Count MPV Absolute Neuts (auto) Neutrophils % Lymphocytes % Monocytes % Eosinophils % Basophils % Nucleated RBC % Sodium Potassium Chloride Carbon Dioxide Anion Gap BUN Creatinine Est GFR (CKD-EPI)AfAm Est GFR (CKD-EPI)NonAf POC Glucometer 151 142 139 Random Glucose Calcium 09/06/19 09/06/19 09/06/19 05:55 05:55 06:05 WBC 7.3 RBC 3.32 L Hgb 8.9 L Hct 27.5 L MCV 82.9 MCH 26.7 MCHC 32.3 RDW 12.7 Plt Count 305 MPV 9.7 Absolute Neuts (auto) 4.8 Neutrophils % 66.0 Lymphocytes % 19.8 Monocytes % 9.8 Eosinophils % 3.3 Basophils % 1.1 Nucleated RBC % 0 Sodium 145 Potassium 4.0 Chloride 114 H Carbon Dioxide 23 Anion Gap 7 L BUN 29.5 H Creatinine 0.7 Est GFR (CKD-EPI)AfAm 90.93 Est GFR (CKD-EPI)NonAf 78.45 POC Glucometer 199 Random Glucose 228 H Calcium 8.6 Active Medications Generic Name Dose Route Start Last Admin Trade Name Freq PRN Reason Stop Dose Admin Acetaminophen 650 mg 09/01/19 13:30 09/06/19 06:32 Tylenol - PO Not Given Q6H [facility] Acetaminophen 1,000 mg 09/05/19 14:26 09/05/19 23:17 Ofirmev Injection - IVPB 1,000 mg Q6H PRN Administration PAIN Amlodipine Besylate 10 mg 09/02/19 10:00 09/05/19 11:43 Norvasc - PO Not Given DAILY [facility] Docusate Sodium 100 mg 09/01/19 22:00 09/05/19 21:37 Colace - PO Not Given BID [facility] Enoxaparin Sodium 40 mg 09/02/19 10:00 09/05/19 10:24 Lovenox - SQ 40 mg DAILY [facility] Administration Ertapenem 1 gm/ Sodium 50 mls @ 100 mls/hr 09/03/19 10:00 09/05/19 10:04 Chloride IVPB 100 mls/hr DAILY [facility] Administration Sodium Chloride 1,000 mls @ 42 mls/hr 09/03/19 18:30 09/05/19 18:55 1/2 Normal Saline IV Not Given ASDIR [facility] Insulin Aspart 1 vial 09/01/19 16:30 09/06/19 06:07 Novolog Vial Sliding Scale - SQ Not Given ACHS [facility] Protocol Insulin Detemir 8 units 09/05/19 07:57 09/06/19 06:14 Levemir Vial SQ 8 units AM [facility] Administration Lorazepam 1 mg 09/04/19 12:03 Ativan Injection - IM Q8H PRN AGITATION Miconazole Nitrate 1 applic 09/01/19 22:00 09/05/19 22:45 Monistat-7 Vaginal Cream - VG 09/07/19 22:01 1 applic HS [facility] Administration Morphine Sulfate 2 mg 09/01/19 12:57 09/05/19 01:59 Morphine Sulfate IVPUSH 2 mg Q4H PRN Administration PAIN LEVEL 4 - 6 Naloxone HCl 0.4 mg 09/01/19 13:21 Narcan - IVPUSH ONCE PRN Sedation Ondansetron HCl 4 mg 09/01/19 13:21 Zofran Injection IVPUSH ONCE PRN NAUSEA Oxycodone HCl 5 mg 09/01/19 13:21 09/03/19 17:38 Roxicodone - PO 5 mg Q3H PRN Administration Mild Pain 1-3 Oxycodone HCl 10 mg 09/01/19 13:21 Roxicodone - PO Q3H PRN PAIN 7-10 Quetiapine Fumarate 12.5 mg 09/04/19 12:15 09/05/19 11:43 Seroquel - PO Not Given DAILY [facility] Sertraline HCl 25 mg 09/02/19 10:00 09/05/19 11:43 Zoloft - PO Not Given DAILY [facility] Valsartan 80 mg 09/02/19 10:00 09/05/19 11:43 Diovan - PO Not Given DAILY [facility] CBC, BMP 09/06/19 05:55 09/06/19 05:55 ASSESSMENT/PLAN: This is a 87 year old female with a history of IDDM, HTN, diverticulosis, depression, presented with after fall on her right side found to have right hip fx and elevated trop # Right intertrochanter fx S/P fall S/P IM Gamma nail POD #5 * admit to tele * xray reviwed , order head CT negative for acute pathology * pain control iV morphin 2 mg Q 4hr , Oxy 5 and 10 and fentanyl patches * Echo was done in september 2018 wit EF 70 % and mild D chf grade II , Mild and AR , will repeat as more than 6 month * resume diet * IV fluids gentle hydration D5 1/2 NS @ 42 Cc/hr * cont ertapeneim # UTI with history f ESBL echoli consult ID switch abx to ertapinim dc Vanco follow cx and sensiticity , # Dilirious 2/2 UTI vs surgery vs medication SE * consult psych * QTC 466 * Ativan and haldol given in AM , can Giv Atiavn low dose Q 6 hr as needed for agitation avoid haldol for now as QTC is borderline #fall 2/2 syncope vs dehydration vs mechanical fall vs imbalance gait VS UTI * head CT negative for acute pathology * echo reviewed EF 65 % , LVH , mild MR and TR and AR , normal LV function * bp monitor * PT eval after surgery * will benefit from [facility] #Hypertensive , non compliant with her meds * still with elevated bp, * cont valsartan 80 mg qD hold for BP below 100 * cont norvasc 10mg qd hold for sytolic less than 100 #elevated troponin likely demand ischemia , no EKG changes , * trend trop * ACS unlikely; likeley demand ischemia * echo reviewed * cardiology consulted #DM , uncontrolled 2/2 non compliant , A1c 13 * last hemoglobin a1c 10.repeat 13 * currently on ISS, add levimer 7 units SQ once * hold oral agents * diabetic diet #depression with suicidal ideation * on zoloft, cont # MVR And AR noted on Echo , follow up out pt #dVT proph:Lovenox 40 SQ daily # Full code Dispo: tele monitor will benifit from [facility] Visit type - Emergency Visit Emergency Visit: Yes ED Registration Date: 08/30/19 Care time: The patient presented to the Emergency Department on the above date and was hospitalized for further evaluation of their emergent condition. - New Patient This patient is new to me today: No - Critical Care Critical Care patient: No ATTENDING PHYSICIAN STATEMENT I saw and evaluated the patient. I reviewed the resident's note and discussed the case with the resident. I agree with the resident's findings and plan as documented. SUBJECTIVE: OBJECTIVE: ASSESSMENT AND PLAN:
[2019-09-06] MEDS ORDERED: PT OWN MED DRAWER 7, Y5N ONE (08:45)
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
[2019-09-06] MEDS: ENOXAPARIN NA (PORCINE) 40 MG/0.4 ML DISP.SYRIN SQ SCH (09:02)
--- NOTE | 2019-09-06 09:33 | PN ---
Progress Note, Physician History of Present Illness: POD#5 Right IT fx post right IM gamma nail w/o sequelae. Still lethargic with decreased oral intake. - Current Medication List Current Medications: Active Medications Acetaminophen (Tylenol -) 650 mg PO Q6H [facility] Last Admin: 09/06/19 06:32 Dose: Not Given Acetaminophen (Ofirmev Injection -) 1,000 mg IVPB Q6H PRN PRN Reason: PAIN Last Admin: 09/05/19 23:17 Dose: 1,000 mg Amlodipine Besylate (Norvasc -) 10 mg PO DAILY [facility] Last Admin: 09/05/19 11:43 Dose: Not Given Docusate Sodium (Colace -) 100 mg PO BID [facility] Last Admin: 09/05/19 21:37 Dose: Not Given Enoxaparin Sodium (Lovenox -) 40 mg SQ DAILY [facility] Last Admin: 09/06/19 09:02 Dose: 40 mg Ertapenem 1 gm/ Sodium (Chloride) 50 mls @ 100 mls/hr IVPB DAILY [facility] Last Admin: 09/05/19 10:04 Dose: 100 mls/hr Sodium Chloride (1/2 Normal Saline) 1,000 mls @ 42 mls/hr IV ASDIR [facility] Last Admin: 09/05/19 18:55 Dose: Not Given Insulin Aspart (Novolog Vial Sliding Scale -) 1 vial SQ ACHS [facility]; Protocol Last Admin: 09/06/19 06:07 Dose: Not Given Insulin Detemir (Levemir Vial) 8 units SQ AM [facility] Last Admin: 09/06/19 06:14 Dose: 8 units Lorazepam (Ativan Injection -) 1 mg IM Q8H PRN PRN Reason: AGITATION Miconazole Nitrate (Monistat-7 Vaginal Cream -) 1 applic VG HS [facility] Stop: 09/07/19 22:01 Last Admin: 09/05/19 22:45 Dose: 1 applic Morphine Sulfate (Morphine Sulfate) 2 mg IVPUSH Q4H PRN PRN Reason: PAIN LEVEL 4 - 6 Last Admin: 09/05/19 01:59 Dose: 2 mg Naloxone HCl (Narcan -) 0.4 mg IVPUSH ONCE PRN PRN Reason: Sedation Ondansetron HCl (Zofran Injection) 4 mg IVPUSH ONCE PRN PRN Reason: NAUSEA Oxycodone HCl (Roxicodone -) 5 mg PO Q3H PRN PRN Reason: Mild Pain 1-3 Last Admin: 09/03/19 17:38 Dose: 5 mg Oxycodone HCl (Roxicodone -) 10 mg PO Q3H PRN PRN Reason: PAIN 7-10 Quetiapine Fumarate (Seroquel -) 12.5 mg PO DAILY [facility] Last Admin: 09/05/19 11:43 Dose: Not Given Sertraline HCl (Zoloft -) 25 mg PO DAILY [facility] Last Admin: 09/05/19 11:43 Dose: Not Given Valsartan (Diovan -) 80 mg PO DAILY [facility] Last Admin: 09/05/19 11:43 Dose: Not Given - Objective Vital Signs: Vital Signs Temperature 97.2 F L 09/05/19 22:00 Pulse Rate 85 09/05/19 22:00 Respiratory Rate 20 09/05/19 22:00 Blood Pressure 132/55 L 09/05/19 22:00 O2 Sat by Pulse Oximetry (%) 97 09/05/19 21:00 Constitutional: Yes: No Distress, Calm, Thin Neck: Yes: Supple Cardiovascular: Yes: Regular Rate and Rhythm Respiratory: Yes: Regular, CTA Bilaterally Gastrointestinal: Yes: Soft, Hypoactive Bowel Sounds Edema: No Labs: CBC, BMP 09/06/19 05:55 09/06/19 05:55 INR, PTT INR 1.08 (0.83-1.09) 08/31/19 05:10 Assessment/Plan Problem List - Problems (1) Diabetes mellitus Code(s): E11.9 - TYPE 2 DIABETES MELLITUS WITHOUT COMPLICATIONS (2) Hip fracture, right Code(s): S72.001A - FRACTURE OF UNSP PART OF NECK OF RIGHT FEMUR, INIT (3) Mitral regurgitation Code(s): I34.0 - NONRHEUMATIC MITRAL (VALVE) INSUFFICIENCY Qualifiers: Cardiac valve disease etiology: nonrheumatic Qualified Code(s): I34.0 - Nonrheumatic mitral (valve) insufficiency (4) Aortic regurgitation Code(s): I35.1 - NONRHEUMATIC AORTIC (VALVE) INSUFFICIENCY Qualifiers: Cardiac valve disease etiology: nonrheumatic Qualified Code(s): I35.1 - Nonrheumatic aortic (valve) insufficiency (5) Hypertension Code(s): I10 - ESSENTIAL (PRIMARY) HYPERTENSION Qualifiers: Hypertension type: essential hypertension Qualified Code(s): I10 - Essential (primary) hypertension Echo (Normal LVEF, mild AR, mild MR, trace TR) Assessment/Plan 08/31/2019 Severe cLVH normal LVEF 65%, mild MR, AR, tr TR 1. Post fall resulting in right IT fracture POD#5 right IM gamma nail 2. Demand ischemia 3. HTN 4. Diabetes Mellitus 5. Non-compliant 6. Toxic metabolic encephalopathy 7. UTI PLAN: 1. Continue Diovan 80 mg QD and Amlodipine 10 mg QD as tolerated 2. Analgesia as needed. Reduce use of Lorazapam 3. DVT and GI prophylaxis 4. Empiric antibiotics coverage 5. Monitor mental status, cont fluids until po intake improved
[2019-09-06] MEDS: ACETAMINOPHEN 1000 MG/100 ML VIAL (NON FORMULARY) IVPB PRN ×3 (10:02→21:03)
[2019-09-06] MEDS: amLODIPine BESYLATE 10 MG TABLET (FP) PO SCH (10:09)
[2019-09-06] MEDS: QUEtiapine FUMARATE 25 MG TABLET PO SCH (10:09)
[2019-09-06] MEDS: SERTRALINE HCL 25 MG TABLET (FP) PO SCH (10:09)
[2019-09-06] MEDS: VALSARTAN 80 MG TABLET (UD) PO SCH (10:09)
[2019-09-06] MEDS: DOCUSATE SODIUM 100 MG CAPSULE (FP) PO SCH ×2 (10:10→21:03)
[2019-09-06] MEDS: ERTAPENEM SODIUM 1 GM in SODIUM CHLORIDE 50 ML IVPB SCH (10:15)
--- NOTE | 2019-09-06 10:15 | PN ---
Teaching Attending Note Name of Resident: Eduardo Rahman ATTENDING PHYSICIAN STATEMENT I saw and evaluated the patient. I reviewed the resident's note and discussed the case with the resident. I agree with the resident's findings and plan as documented. SUBJECTIVE: Patient is still confused but no improvement OBJECTIVE: Vital Signs Temperature 97.2 F L 09/05/19 22:00 Pulse Rate 85 09/05/19 22:00 Respiratory Rate 20 09/05/19 22:00 Blood Pressure 132/55 L 09/05/19 22:00 O2 Sat by Pulse Oximetry (%) 97 09/05/19 21:00 General: Elderly female, not in distress HEENT; mucous membranes moist, no anemia, no jaundice, PERRLA, no nystagmus Neck: No JVD, supple, no bruit, thyroid palpably normal, normal carotid pulsations. Chest: Nontender, clear to auscultation bilaterally CVS: S1-S2 systolic murmur no/gallop/rub Abdomen: Nondistended, soft, bowel sounds present. Extremities: Right hip s/p surgery no edema., No calf tenderness, pulses present DENTAL SCHEDULER: Alert but confused, no gross motor sensory deficit CBC, BMP 09/06/19 05:55 09/06/19 05:55 Active Medications Acetaminophen (Tylenol -) 650 mg PO Q6H [facility] Last Admin: 09/06/19 06:32 Dose: Not Given Acetaminophen (Ofirmev Injection -) 1,000 mg IVPB Q6H PRN PRN Reason: PAIN Last Admin: 09/05/19 23:17 Dose: 1,000 mg Amlodipine Besylate (Norvasc -) 10 mg PO DAILY [facility] Last Admin: 09/05/19 11:43 Dose: Not Given Docusate Sodium (Colace -) 100 mg PO BID [facility] Last Admin: 09/05/19 21:37 Dose: Not Given Enoxaparin Sodium (Lovenox -) 40 mg SQ DAILY [facility] Last Admin: 09/06/19 09:02 Dose: 40 mg Ertapenem 1 gm/ Sodium (Chloride) 50 mls @ 100 mls/hr IVPB DAILY [facility] Last Admin: 09/05/19 10:04 Dose: 100 mls/hr Sodium Chloride (1/2 Normal Saline) 1,000 mls @ 42 mls/hr IV ASDIR [facility] Last Admin: 09/05/19 18:55 Dose: Not Given Insulin Aspart (Novolog Vial Sliding Scale -) 1 vial SQ ACHS [facility]; Protocol Last Admin: 09/06/19 06:07 Dose: Not Given Insulin Detemir (Levemir Vial) 8 units SQ AM [facility] Last Admin: 09/06/19 06:14 Dose: 8 units Lorazepam (Ativan Injection -) 1 mg IM Q8H PRN PRN Reason: AGITATION Miconazole Nitrate (Monistat-7 Vaginal Cream -) 1 applic VG HS [facility] Stop: 09/07/19 22:01 Last Admin: 09/05/19 22:45 Dose: 1 applic Morphine Sulfate (Morphine Sulfate) 2 mg IVPUSH Q4H PRN PRN Reason: PAIN LEVEL 4 - 6 Last Admin: 09/05/19 01:59 Dose: 2 mg Naloxone HCl (Narcan -) 0.4 mg IVPUSH ONCE PRN PRN Reason: Sedation Ondansetron HCl (Zofran Injection) 4 mg IVPUSH ONCE PRN PRN Reason: NAUSEA Oxycodone HCl (Roxicodone -) 5 mg PO Q3H PRN PRN Reason: Mild Pain 1-3 Last Admin: 09/03/19 17:38 Dose: 5 mg Oxycodone HCl (Roxicodone -) 10 mg PO Q3H PRN PRN Reason: PAIN 7-10 Quetiapine Fumarate (Seroquel -) 12.5 mg PO DAILY [facility] Last Admin: 09/05/19 11:43 Dose: Not Given Sertraline HCl (Zoloft -) 25 mg PO DAILY [facility] Last Admin: 09/05/19 11:43 Dose: Not Given Valsartan (Diovan -) 80 mg PO DAILY [facility] Last Admin: 09/05/19 11:43 Dose: Not Given ASSESSMENT AND PLAN:88-year-old female history of diastolic heart failure, hypertension depression presented to ED after sustaining a mechanical fall with right femoral neck fracture evaluated by orthopedics, yesterday patient underwent surgery, became very confused and combative. Impression: 1. mechanical fall right hip fracture status post surgery postoperative day 2 . 2. Toxic metabolic encephalopathy due to UTI: Patient has positive UA with worsening mental status since hospitalization, urine is growing gram-negative bacilli, previously grew ESBL, continue current antibiotic. 3.uncontrolled type 2 diabetes mellitus: Hemoglobin A1c 13 will optimize glycemic control increase 4. hypertension: Continue current medication at present blood pressure is well controlled Rest continue current management Problem List - Problems (1) Hip fracture, right Code(s): S72.001A - FRACTURE OF UNSP PART OF NECK OF RIGHT FEMUR, INIT (2) Hypertension Code(s): I10 - ESSENTIAL (PRIMARY) HYPERTENSION (3) Cardiac murmur Code(s): R01.1 - CARDIAC MURMUR, UNSPECIFIED (4) Anxiety Code(s): F41.9 - ANXIETY DISORDER, UNSPECIFIED (5) UTI (urinary tract infection) Code(s): N39.0 - URINARY TRACT INFECTION, SITE NOT SPECIFIED (6) Toxic metabolic encephalopathy Code(s): G92 - TOXIC ENCEPHALOPATHY (7) Uncontrolled type 2 diabetes mellitus Code(s): E11.65 - TYPE 2 DIABETES MELLITUS WITH HYPERGLYCEMIA (8) Dehydration Code(s): E86.0 - DEHYDRATION
--- NOTE | 2019-09-06 11:28 | PN ---
Progress Note (short form) - Note Progress Note: remains agitated- don't touch me Vital Signs Period Temp Pulse Resp BP Sys/Powers Pulse Ox Last 24 Hr 97.2 F-99.4 F 74-91 18-20 130-146/53-79 97-97 cor-rrr lungs clear abd soft,nt ext no edema +incision right hip CBC, BMP 09/06/19 05:55 09/06/19 05:55 Microbiology 09/02/19 17:20 Blood - Peripheral Venous Blood Culture - Preliminary NO GROWTH OBTAINED AFTER 72 HOURS, INCUBATION TO CONTINUE FOR 2 DAYS. 09/02/19 17:20 Blood - Peripheral Venous Blood Culture - Preliminary NO GROWTH OBTAINED AFTER 72 HOURS, INCUBATION TO CONTINUE FOR 2 DAYS. 09/02/19 18:00 Urine - Urine - Catheterized Urine Culture - Final Yeast Like Organism a/p fevers-resolving postop day #5 s/p gamma nail delirium post hip fracture on ertapenem for presumed uti fevers resolved mental status improving Problem List - Problems (1) Postoperative fever Code(s): R50.82 - POSTPROCEDURAL FEVER (2) Hip fracture, right Code(s): S72.001A - FRACTURE OF UNSP PART OF NECK OF RIGHT FEMUR, INIT (3) UTI (urinary tract infection) Code(s): N39.0 - URINARY TRACT INFECTION, SITE NOT SPECIFIED
--- NOTE | 2019-09-06 13:31 | PN ---
Progress Note, Physician History of Present Illness: Pt seen and examined at bedside. She has poor po intake. - Current Medication List Current Medications: Active Medications Acetaminophen (Tylenol -) 650 mg PO Q6H [facility] Last Admin: 09/06/19 06:32 Dose: Not Given Acetaminophen (Ofirmev Injection -) 1,000 mg IVPB Q6H PRN PRN Reason: PAIN Last Admin: 09/06/19 10:02 Dose: 1,000 mg Amlodipine Besylate (Norvasc -) 10 mg PO DAILY [facility] Last Admin: 09/06/19 10:09 Dose: 10 mg Docusate Sodium (Colace -) 100 mg PO BID [facility] Last Admin: 09/06/19 10:10 Dose: Not Given Enoxaparin Sodium (Lovenox -) 40 mg SQ DAILY [facility] Last Admin: 09/06/19 09:02 Dose: 40 mg Ertapenem 1 gm/ Sodium (Chloride) 50 mls @ 100 mls/hr IVPB DAILY [facility] Last Admin: 09/06/19 10:15 Dose: 100 mls/hr Sodium Chloride (1/2 Normal Saline) 1,000 mls @ 42 mls/hr IV ASDIR [facility] Last Admin: 09/05/19 18:55 Dose: Not Given Insulin Aspart (Novolog Vial Sliding Scale -) 1 vial SQ ACHS [facility]; Protocol Last Admin: 09/06/19 11:40 Dose: Not Given Insulin Detemir (Levemir Vial) 8 units SQ AM [facility] Last Admin: 09/06/19 06:14 Dose: 8 units Lorazepam (Ativan Injection -) 1 mg IM Q8H PRN PRN Reason: AGITATION Miconazole Nitrate (Monistat-7 Vaginal Cream -) 1 applic VG HS [facility] Stop: 09/07/19 22:01 Last Admin: 09/05/19 22:45 Dose: 1 applic Morphine Sulfate (Morphine Sulfate) 2 mg IVPUSH Q4H PRN PRN Reason: PAIN LEVEL 4 - 6 Last Admin: 09/05/19 01:59 Dose: 2 mg Naloxone HCl (Narcan -) 0.4 mg IVPUSH ONCE PRN PRN Reason: Sedation Ondansetron HCl (Zofran Injection) 4 mg IVPUSH ONCE PRN PRN Reason: NAUSEA Oxycodone HCl (Roxicodone -) 5 mg PO Q3H PRN PRN Reason: Mild Pain 1-3 Last Admin: 09/03/19 17:38 Dose: 5 mg Oxycodone HCl (Roxicodone -) 10 mg PO Q3H PRN PRN Reason: PAIN 7-10 Quetiapine Fumarate (Seroquel -) 12.5 mg PO DAILY [facility] Last Admin: 09/06/19 10:09 Dose: 12.5 mg Sertraline HCl (Zoloft -) 25 mg PO DAILY [facility] Last Admin: 09/06/19 10:09 Dose: 25 mg Valsartan (Diovan -) 80 mg PO DAILY [facility] Last Admin: 09/06/19 10:09 Dose: 80 mg - Objective Vital Signs: Vital Signs Temperature 98.4 F 09/06/19 10:00 Pulse Rate 91 H 09/06/19 10:00 Respiratory Rate 20 09/06/19 10:00 Blood Pressure 146/79 09/06/19 10:00 O2 Sat by Pulse Oximetry (%) 97 09/06/19 09:00 Constitutional: Yes: Calm Eyes: Yes: Conjunctiva Clear HENT: Yes: Atraumatic Neck: Yes: Supple Cardiovascular: Yes: S1, S2 Respiratory: Yes: CTA Bilaterally Gastrointestinal: Yes: Normal Bowel Sounds, Soft Genitourinary: Yes: Incontinence Musculoskeletal: Yes: WNL Edema: No Integumentary: Yes: WNL Neurological: Yes: Lethargy Labs: CBC, BMP 09/06/19 05:55 09/06/19 05:55 INR, PTT INR 1.08 (0.83-1.09) 08/31/19 05:10 Problem List - Problems (1) Hip fracture, right Code(s): S72.001A - FRACTURE OF UNSP PART OF NECK OF RIGHT FEMUR, INIT (2) Hypertension Code(s): I10 - ESSENTIAL (PRIMARY) HYPERTENSION Qualifiers: Hypertension type: essential hypertension Qualified Code(s): I10 - Essential (primary) hypertension Assessment/Plan Current Medications Generic Name Dose Route Start Last Admin Trade Name Freq PRN Reason Stop Dose Admin Acetaminophen 650 mg 09/01/19 13:30 09/06/19 06:32 Tylenol - PO Not Given Q6H [facility] Acetaminophen 1,000 mg 09/05/19 14:26 09/06/19 10:02 Ofirmev Injection - IVPB 1,000 mg Q6H PRN Administration PAIN Amlodipine Besylate 10 mg 09/02/19 10:00 09/06/19 10:09 Norvasc - PO 10 mg DAILY [facility] Administration Docusate Sodium 100 mg 09/01/19 22:00 09/06/19 10:10 Colace - PO Not Given BID [facility] Enoxaparin Sodium 40 mg 09/02/19 10:00 09/06/19 09:02 Lovenox - SQ 40 mg DAILY [facility] Administration Ertapenem 1 gm/ Sodium 50 mls @ 100 mls/hr 09/03/19 10:00 09/06/19 10:15 Chloride IVPB 100 mls/hr DAILY [facility] Administration Sodium Chloride 1,000 mls @ 42 mls/hr 09/03/19 18:30 09/05/19 18:55 1/2 Normal Saline IV Not Given ASDIR [facility] Insulin Aspart 1 vial 09/01/19 16:30 09/06/19 11:40 Novolog Vial Sliding Scale - SQ Not Given ACHS [facility] Protocol Insulin Detemir 8 units 09/05/19 07:57 09/06/19 06:14 Levemir Vial SQ 8 units AM [facility] Administration Lorazepam 1 mg 09/04/19 12:03 Ativan Injection - IM Q8H PRN AGITATION Miconazole Nitrate 1 applic 09/01/19 22:00 09/05/19 22:45 Monistat-7 Vaginal Cream - VG 09/07/19 22:01 1 applic HS [facility] Administration Morphine Sulfate 2 mg 09/01/19 12:57 09/05/19 01:59 Morphine Sulfate IVPUSH 2 mg Q4H PRN Administration PAIN LEVEL 4 - 6 Naloxone HCl 0.4 mg 09/01/19 13:21 Narcan - IVPUSH ONCE PRN Sedation Ondansetron HCl 4 mg 09/01/19 13:21 Zofran Injection IVPUSH ONCE PRN NAUSEA Oxycodone HCl 5 mg 09/01/19 13:21 09/03/19 17:38 Roxicodone - PO 5 mg Q3H PRN Administration Mild Pain 1-3 Oxycodone HCl 10 mg 09/01/19 13:21 Roxicodone - PO Q3H PRN PAIN 7-10 Quetiapine Fumarate 12.5 mg 09/04/19 12:15 09/06/19 10:09 Seroquel - PO 12.5 mg DAILY [facility] Administration Sertraline HCl 25 mg 09/02/19 10:00 09/06/19 10:09 Zoloft - PO 25 mg DAILY [facility] Administration Valsartan 80 mg 09/02/19 10:00 09/06/19 10:09 Diovan - PO 80 mg DAILY [facility] Administration Impression 1. azotemia/dehydration 2. dm 3. hip fracture 4. htn 5. s/p fall 6. UTI Plan - cont fluids until po intake improved - renal function improving - abx per medical team - discussed with family - avoid nsaids - repeat ua once uti clears
[2019-09-06] MEDS ORDERED: oxyCODONE HCL 5 MG TABLET PO PRN (16:22)
[2019-09-06] MEDS ORDERED: DEXTROSE 5%-1/3 NS - 500 ML IV SCH (17:00)
[2019-09-06] MEDS ORDERED: DEXTROSE 5%-NORMAL SALINE 1,000 ML IV SCH (18:00)
[2019-09-06] MEDS: MICONAZOLE NITRATE 2% VAGINAL CREAM 45 GM TUBE VG SCH (21:03)
[2019-09-07] MEDS: ACETAMINOPHEN 325 MG TABLET (FP) PO SCH ×4 (02:26→19:26)
[2019-09-07] MEDS: ACETAMINOPHEN 1000 MG/100 ML VIAL (NON FORMULARY) IVPB PRN ×2 (03:00→10:40)
--- NOTE | 2019-09-07 05:54 | PN ---
Physical Exam: SUBJECTIVE: Patient seen and examined denies nay fever or chills over night , less confused more awake alert close to base line , on ertapenem and 42 CC of d5 1/2 NS family at bed side POD#6 better oral intake today seen vy cardiology who recommend decrease Amlodipin to 5 and start toprol XL 12.5 daily OBJECTIVE: Vital Signs Period Temp Pulse Resp BP Sys/Powers Pulse Ox Last 24 Hr 97.2 F-101.0 F 72-91 18-20 136-156/51-79 97-97 GENERAL:awake alert byt lethargic HEAD: NC/AT EYES: Pupils equal, round and reactive to light, extraocular movements intact, EARS, NOSE, THROAT: dry mucous membranes. NECK: Normal range of motion, supple LUNGS: Breath sounds equal, clear to auscultation bilaterally. No wheezes, and no crackles. No accessory muscle use. HEART: Regular rate and rhythm, normal S1 and S2,4/6 systolic murmur all over RUSB , LUSB radiated to neck ABDOMEN: Soft, nontender, not distended, normoactive bowel sounds, UPPER EXTREMITIES: 2+ pulses, warm, well-perfused. hand with erythema as she bite her self LOWER EXTREMITIES: 2+ pulses, warm, well-perfused. No calf tenderness. No peripheral edema. right leg S/P gamma Nail IM with stitches , +2 DP, left leg FROM proximal and distal , NEUROLOGICAL: no focal deficit . PSYCHIATRIC: agitated SKIN: Warm, dry, normal turgor, Laboratory Results - last 24 hr 09/06/19 09/06/19 09/06/19 05:55 05:55 06:05 WBC 7.3 RBC 3.32 L Hgb 8.9 L Hct 27.5 L MCV 82.9 MCH 26.7 MCHC 32.3 RDW 12.7 Plt Count 305 MPV 9.7 Absolute Neuts (auto) 4.8 Neutrophils % 66.0 Lymphocytes % 19.8 Monocytes % 9.8 Eosinophils % 3.3 Basophils % 1.1 Nucleated RBC % 0 Sodium 145 Potassium 4.0 Chloride 114 H Carbon Dioxide 23 Anion Gap 7 L BUN 29.5 H Creatinine 0.7 Est GFR (CKD-EPI)AfAm 90.93 Est GFR (CKD-EPI)NonAf 78.45 POC Glucometer 199 Random Glucose 228 H Calcium 8.6 09/06/19 09/06/19 09/06/19 11:37 16:36 21:09 WBC RBC Hgb Hct MCV MCH MCHC RDW Plt Count MPV Absolute Neuts (auto) Neutrophils % Lymphocytes % Monocytes % Eosinophils % Basophils % Nucleated RBC % Sodium Potassium Chloride Carbon Dioxide Anion Gap BUN Creatinine Est GFR (CKD-EPI)AfAm Est GFR (CKD-EPI)NonAf POC Glucometer 134 101 131 Random Glucose Calcium Active Medications Generic Name Dose Route Start Last Admin Trade Name Freq PRN Reason Stop Dose Admin Acetaminophen 650 mg 09/01/19 13:30 09/07/19 02:26 Tylenol - PO Not Given Q6H EPHRAIM Acetaminophen 1,000 mg 09/06/19 16:21 09/07/19 03:00 Ofirmev Injection - IVPB 09/07/19 16:21 1,000 mg Q6H PRN Administration PAIN LEVEL 1 - 3 Amlodipine Besylate 10 mg 09/02/19 10:00 09/06/19 10:09 Norvasc - PO 10 mg DAILY EPHRAIM Administration Docusate Sodium 100 mg 09/01/19 22:00 09/06/19 21:03 Colace - PO Not Given BID EPHRAIM Enoxaparin Sodium 40 mg 09/02/19 10:00 09/06/19 09:02 Lovenox - SQ 40 mg DAILY E[facility]RAIM Administration Ertapenem 1 gm/ Sodium 50 mls @ 100 mls/hr 09/03/19 10:00 09/06/19 10:15 Chloride IVPB 100 mls/hr DAILY E[facility] Administration Dextrose/Sodium Chloride 1,000 mls @ 42 mls/hr 09/06/19 18:00 09/06/19 18:20 D5-Ns - IV 42 mls/hr ASDIR E[facility] Administration Insulin Aspart 1 vial 09/01/19 16:30 09/06/19 21:13 Novolog Vial Sliding Scale - SQ Not Given ACHS [facility] Protocol Insulin Detemir 8 units 09/05/19 07:57 09/06/19 06:14 Levemir Vial SQ 8 units AM E[facility]RAIM Administration Lorazepam 1 mg 09/04/19 12:03 Ativan Injection - IM Q8H PRN AGITATION Miconazole Nitrate 1 applic 09/01/19 22:00 09/06/19 21:03 Monistat-7 Vaginal Cream - VG 09/07/19 22:01 1 applic HS EPHRAIM Administration Naloxone HCl 0.4 mg 09/01/19 13:21 Narcan - IVPUSH ONCE PRN Sedation Ondansetron HCl 4 mg 09/01/19 13:21 Zofran Injection IVPUSH ONCE PRN NAUSEA Oxycodone HCl 5 mg 09/06/19 16:22 Roxicodone - PO Q4H PRN PAIN LEVEL 6-10 Quetiapine Fumarate 12.5 mg 09/04/19 12:15 09/06/19 10:09 Seroquel - PO 12.5 mg DAILY E[facility]RAIM Administration Sertraline HCl 25 mg 09/02/19 10:00 09/06/19 10:09 Zoloft - PO 25 mg DAILY E[facility] Administration Valsartan 80 mg 09/02/19 10:00 09/06/19 10:09 Diovan - PO 80 mg DAILY E[facility]IM Administration CBC, BMP 09/07/19 08:40 09/07/19 08:40 ASSESSMENT/PLAN: This is a 87 year old female with a history of IDDM, HTN, diverticulosis, depression, presented with after fall on her right side found to have right hip fx and elevated trop # Right intertrochanter fx S/P fall S/P IM Gamma nail POD #5 * admit to tele * xray reviewed , head CT negative for acute pathology * pain control iV morphin 2 mg Q 4hr , Oxy 5 and 10 and fentanyl patches * Echo was done in september 2018 wit EF 70 % and mild D chf grade II , Mild and AR , will repeat as more than 6 month * resume diet * IV fluids gentle hydration D5 1/2 NS @ 42 Cc/hr * cont ertapeneim # UTI with history f ESBL echoli consult ID switch abx to ertapinim dc Vanco follow cx and sensiticity , wbc elevated today cont to mmonitor cbc daily # Dilirious 2/2 UTI vs surgery vs medication SE , improving * consult psych * QTC 466 * , can Giv Atiavn low dose Q 6 hr as needed for agitation avoid haldol for now as QTC is borderline * started on Seraquel * head of bed elevation , aspiration precautions #fall 2/2 syncope vs dehydration vs mechanical fall vs imbalance gait VS UTI * head CT negative for acute pathology * echo reviewed EF 65 % , LVH , mild MR and TR and AR , normal LV function * bp monitor * PT eval after surgery * will benefit from JOELLEN #Hypertensive , non compliant with her meds * still with elevated bp, * cont valsartan 80 mg qD hold for BP below 100 * decrease norvasc to 5 mg qd hold for sytolic less than 100 * start on Torol XL 12.5 Daily per cardiology #elevated troponin likely demand ischemia , no EKG changes , * trend trop * ACS unlikely; likeley demand ischemia * echo reviewed * cardiology consulted #DM , uncontrolled 2/2 non compliant , A1c 13 * last hemoglobin a1c 10.repeat 13 * currently on ISS, add levimer 8 units SQ once * hold oral agents * diabetic diet #depression with suicidal ideation * on zoloft, cont * start seraquel # MVR And AR noted on Echo , follow up out pt #dVT proph:Lovenox 40 SQ daily # Full code Dispo: tele monitor will benifit from JOELLEN possible dc in AM Visit type - Emergency Visit Emergency Visit: Yes ED Registration Date: 08/30/19 Care time: The patient presented to the Emergency Department on the above date and was hospitalized for further evaluation of their emergent condition. - New Patient This patient is new to me today: No - Critical Care Critical Care patient: No - Discharge Referral Referred to [facility] Med P.C.: No ATTENDING PHYSICIAN STATEMENT I saw and evaluated the patient. I reviewed the resident's note and discussed the case with the resident. I agree with the resident's findings and plan as documented. SUBJECTIVE: OBJECTIVE: ASSESSMENT AND PLAN:
[2019-09-07] MEDS: INSULIN (LEVEMIR) 100 UNITS/ML UNITS SQ SCH (06:41)
[2019-09-07] MEDS: INSULIN SLIDING SCALE (NOVOLOG) 1 VIAL SQ SCH ×4 (06:42→22:09)
--- NOTE | 2019-09-07 07:42 | PN ---
Progress Note (short form) - Note Progress Note: Chief Complaint: Events noted, notes reviewed, resting in bed comfortably no distress, no reported chest discomfort or dyspnea, patient's daughter at the bedside, History of Present Illness: Seen and examined on telemetry. Events noted, notes reviewed, resting in bed comfortably no distress, no reported chest discomfort or dyspnea, patient's daughter at the bedside, Medications: Current Medications Acetaminophen (Tylenol -) 650 mg PO Q6H [facility] Last Admin: 09/07/19 06:39 Dose: Not Given Acetaminophen (Ofirmev Injection -) 1,000 mg IVPB Q6H PRN PRN Reason: PAIN LEVEL 1 - 3 Stop: 09/07/19 16:21 Last Admin: 09/07/19 03:00 Dose: 1,000 mg Amlodipine Besylate (Norvasc -) 10 mg PO DAILY [facility] Last Admin: 09/06/19 10:09 Dose: 10 mg Docusate Sodium (Colace -) 100 mg PO BID [facility] Last Admin: 09/06/19 21:03 Dose: Not Given Enoxaparin Sodium (Lovenox -) 40 mg SQ DAILY [facility] Last Admin: 09/06/19 09:02 Dose: 40 mg Ertapenem 1 gm/ Sodium (Chloride) 50 mls @ 100 mls/hr IVPB DAILY [facility] Last Admin: 09/06/19 10:15 Dose: 100 mls/hr Dextrose/Sodium Chloride (D5-Ns -) 1,000 mls @ 42 mls/hr IV ASDIR [facility] Last Admin: 09/06/19 18:20 Dose: 42 mls/hr Insulin Aspart (Novolog Vial Sliding Scale -) 1 vial SQ ACHS [facility]; Protocol Last Admin: 09/07/19 06:42 Dose: Not Given Insulin Detemir (Levemir Vial) 8 units SQ AM [facility] Last Admin: 09/07/19 06:41 Dose: 8 units Lorazepam (Ativan Injection -) 1 mg IM Q8H PRN PRN Reason: AGITATION Miconazole Nitrate (Monistat-7 Vaginal Cream -) 1 applic VG HS [facility] Stop: 09/07/19 22:01 Last Admin: 09/06/19 21:03 Dose: 1 applic Naloxone HCl (Narcan -) 0.4 mg IVPUSH ONCE PRN PRN Reason: Sedation Ondansetron HCl (Zofran Injection) 4 mg IVPUSH ONCE PRN PRN Reason: NAUSEA Oxycodone HCl (Roxicodone -) 5 mg PO Q4H PRN PRN Reason: PAIN LEVEL 6-10 Quetiapine Fumarate (Seroquel -) 12.5 mg PO DAILY [facility] Last Admin: 09/06/19 10:09 Dose: 12.5 mg Sertraline HCl (Zoloft -) 25 mg PO DAILY [facility] Last Admin: 09/06/19 10:09 Dose: 25 mg Valsartan (Diovan -) 80 mg PO DAILY [facility] Last Admin: 09/06/19 10:09 Dose: 80 mg Review of Systems - Review of Systems Unable to obtain/dementia Vital Signs: Last Vital Signs Temp Pulse Resp BP Pulse Ox 98.1 F 62 20 148/53 L 97 09/07/19 05:00 09/07/19 05:00 09/07/19 05:00 09/07/19 05:00 09/06/19 21:00 Intake & Output 09/04/19 09/05/19 09/06/19 09/07/19 23:59 23:59 23:59 23:59 Intake Total 804 1484 1130 394 Balance 804 1484 1130 394 Weight 129 lb Neck: Supple Negative JVD No Bruit Respiratory: Diminished breath sounds at the bases bilaterally Cardiovascular: S1 S2 Regular Rate and Rhythm Grade 2-3/6 SM Gastrointestinal: Soft Benign Normal Bowel Sounds Ext: Negative Edema Labs: CBC, BMP 09/06/19 05:55 09/06/19 05:55 Hepatic Panel Total Bilirubin 0.7 mg/dL (0.2-1) 09/04/19 05:30 AST 29 U/L (15-37) 09/04/19 05:30 ALT 22 U/L (13-61) 09/04/19 05:30 Alkaline Phosphatase 60 U/L (45-117) 09/04/19 05:30 Albumin 2.3 g/dl (3.4-5.0) L 09/04/19 05:30 INR, PTT INR 1.08 (0.83-1.09) 08/31/19 05:10 Assessment/Plan ASSESSMENT: 1. Post fall resulting in right Intra-trochanteric fracture POD#6 post right intra-medullary gamma nail 2. Coronary artery disease with evidence of demand ischemia angina pectoris 3. Probable diastolic left ventricular dysfunction with clinical class 0 [place] [employer] classification left ventricular failure 4. HTN 5. Diabetes Mellitus 6. 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 Urinary tract infection PLAN: 1. Continue Diovan 2. Continue Amlodipine but decrease dosage and recommend the addition of 3. Beta-renate therapy/Toprol-XL 4. Antibiotics as per the primary team 5. To initiate physical therapy Herson Beauchamp M.D.
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
[2019-09-07] MEDS: ENOXAPARIN NA (PORCINE) 40 MG/0.4 ML DISP.SYRIN SQ SCH (09:02)
[2019-09-07] MEDS: amLODIPine BESYLATE 10 MG TABLET (FP) PO SCH (09:02)
[2019-09-07] MEDS: SERTRALINE HCL 25 MG TABLET (FP) PO SCH (09:02)
[2019-09-07] MEDS: QUEtiapine FUMARATE 25 MG TABLET PO SCH (09:02)
[2019-09-07] MEDS: VALSARTAN 80 MG TABLET (UD) PO SCH (09:03)
[2019-09-07] MEDS: DOCUSATE SODIUM 100 MG CAPSULE (FP) PO SCH ×2 (09:03→22:08)
[2019-09-07 09:12] LABS: BASO % 0.5 % (0-2.0); EOS % 1.4 % (0-4.5); HEMATOCRIT 28.8 % (32.4-45.2); HEMOGLOBIN 9.3 GM/dL (10.7-15.3); LYMPH % 12.3 % (8-40); MCH 26.7 pg (25.7-33.7); MCHC 32.1 g/dl (32.0-36.0); MEAN PLT VOLUME 9.4 fl (7.5-11.1); MONO % 8.1 % (3.8-10.2); NEUT % 77.7 % (42.8-82.8); PLATELET COUNT 353 K/MM3 (134-434); RBC 3.47 M/mm3 (3.60-5.2); RDW 13.1 % (11.6-15.6); WHITE BLOOD COUNT 12.7 K/mm3 (4.0-10.0)
[2019-09-07] MEDS: ERTAPENEM SODIUM 1 GM in SODIUM CHLORIDE 50 ML IVPB SCH (09:39)
[2019-09-07 09:42] LABS: BLOOD UREA NITROGEN 27.6 mg/dL (7-18); CALCIUM 8.7 mg/dL (8.5-10.1); CREATININE 0.8 mg/dL (0.55-1.3); POTASSIUM 3.8 mmol/L (3.5-5.1)
[2019-09-07] MEDS ORDERED: DEXTROSE 5%-0.45% SALINE 1,000 ML IV SCH (13:45)
[2019-09-07] MEDS: metoPROLOL SUCCINATE 25 MG TAB.SR.24H (FP) PO SCH (14:15)
--- NOTE | 2019-09-07 14:55 | PN ---
Progress Note, Physician History of Present Illness: Pt seen and examined at bedside. She is more awake. Her po intake remains poor. - Current Medication List Current Medications: Active Medications Acetaminophen (Tylenol -) 650 mg PO Q6H [facility] Last Admin: 09/07/19 13:30 Dose: Not Given Acetaminophen (Ofirmev Injection -) 1,000 mg IVPB Q6H PRN PRN Reason: PAIN LEVEL 1 - 3 Stop: 09/07/19 16:21 Last Admin: 09/07/19 10:40 Dose: 1,000 mg Amlodipine Besylate (Norvasc -) 5 mg PO DAILY [facility] Docusate Sodium (Colace -) 100 mg PO BID [facility] Last Admin: 09/07/19 09:03 Dose: Not Given Enoxaparin Sodium (Lovenox -) 40 mg SQ DAILY [facility] Last Admin: 09/07/19 09:02 Dose: 40 mg Ertapenem 1 gm/ Sodium (Chloride) 50 mls @ 100 mls/hr IVPB DAILY [facility] Last Admin: 09/07/19 09:39 Dose: 100 mls/hr Dextrose/Sodium Chloride (D5-1/2ns -) 1,000 mls @ 42 mls/hr IV ASDIR [facility] Insulin Aspart (Novolog Vial Sliding Scale -) 1 vial SQ ACHS [facility]; Protocol Last Admin: 09/07/19 11:10 Dose: 6 units Insulin Detemir (Levemir Vial) 8 units SQ AM [facility] Last Admin: 09/07/19 06:41 Dose: 8 units Lorazepam (Ativan Injection -) 1 mg IM Q8H PRN PRN Reason: AGITATION Metoprolol Succinate (Toprol Xl -) 12.5 mg PO DAILY [facility] Miconazole Nitrate (Monistat-7 Vaginal Cream -) 1 applic VG HS [facility] Stop: 09/07/19 22:01 Last Admin: 09/06/19 21:03 Dose: 1 applic Naloxone HCl (Narcan -) 0.4 mg IVPUSH ONCE PRN PRN Reason: Sedation Ondansetron HCl (Zofran Injection) 4 mg IVPUSH ONCE PRN PRN Reason: NAUSEA Oxycodone HCl (Roxicodone -) 5 mg PO Q4H PRN PRN Reason: PAIN LEVEL 6-10 Quetiapine Fumarate (Seroquel -) 12.5 mg PO DAILY [facility] Last Admin: 09/07/19 09:02 Dose: 12.5 mg Sertraline HCl (Zoloft -) 25 mg PO DAILY [facility] Last Admin: 09/07/19 09:02 Dose: 25 mg Valsartan (Diovan -) 80 mg PO DAILY [facility] Last Admin: 09/07/19 09:03 Dose: 80 mg - Objective Vital Signs: Vital Signs Temperature 98.3 F 09/07/19 14:14 Pulse Rate 73 09/07/19 14:14 Respiratory Rate 20 09/07/19 14:14 Blood Pressure 121/44 L 09/07/19 14:14 O2 Sat by Pulse Oximetry (%) 95 09/07/19 09:00 Constitutional: Yes: Calm Eyes: Yes: Conjunctiva Clear HENT: Yes: Atraumatic Neck: Yes: Supple Cardiovascular: Yes: S1, S2 Respiratory: Yes: CTA Bilaterally Gastrointestinal: Yes: Soft Genitourinary: Yes: Incontinence Edema: No Neurological: Yes: Confusion Labs: CBC, BMP 09/07/19 08:40 09/07/19 08:40 INR, PTT INR 1.08 (0.83-1.09) 08/31/19 05:10 Problem List - Problems (1) Hip fracture, right Code(s): S72.001A - FRACTURE OF UNSP PART OF NECK OF RIGHT FEMUR, INIT (2) Hypertension Code(s): I10 - ESSENTIAL (PRIMARY) HYPERTENSION Qualifiers: Hypertension type: essential hypertension Qualified Code(s): I10 - Essential (primary) hypertension Assessment/Plan Current Medications Generic Name Dose Route Start Last Admin Trade Name Freq PRN Reason Stop Dose Admin Acetaminophen 650 mg 09/01/19 13:30 09/07/19 13:30 Tylenol - PO Not Given Q6H [facility] Acetaminophen 1,000 mg 09/06/19 16:21 09/07/19 10:40 Ofirmev Injection - IVPB 09/07/19 16:21 1,000 mg Q6H PRN Administration PAIN LEVEL 1 - 3 Amlodipine Besylate 5 mg 09/07/19 13:40 Norvasc - PO DAILY [facility] Docusate Sodium 100 mg 09/01/19 22:00 09/07/19 09:03 Colace - PO Not Given BID [facility] Enoxaparin Sodium 40 mg 09/02/19 10:00 09/07/19 09:02 Lovenox - SQ 40 mg DAILY [facility] Administration Ertapenem 1 gm/ Sodium 50 mls @ 100 mls/hr 09/03/19 10:00 09/07/19 09:39 Chloride IVPB 100 mls/hr DAILY [facility] Administration Dextrose/Sodium Chloride 1,000 mls @ 42 mls/hr 09/07/19 13:45 D5-1/2ns - IV ASDIR [facility] Insulin Aspart 1 vial 09/01/19 16:30 09/07/19 11:10 Novolog Vial Sliding Scale - SQ 6 units ACHS [facility] Administration Protocol Insulin Detemir 8 units 09/05/19 07:57 09/07/19 06:41 Levemir Vial SQ 8 units AM [facility] Administration Lorazepam 1 mg 09/04/19 12:03 Ativan Injection - IM Q8H PRN AGITATION Metoprolol Succinate 12.5 mg 09/07/19 13:45 Toprol Xl - PO DAILY [facility] Miconazole Nitrate 1 applic 09/01/19 22:00 09/06/19 21:03 Monistat-7 Vaginal Cream - VG 09/07/19 22:01 1 applic HS [facility] Administration Naloxone HCl 0.4 mg 09/01/19 13:21 Narcan - IVPUSH ONCE PRN Sedation Ondansetron HCl 4 mg 09/01/19 13:21 Zofran Injection IVPUSH ONCE PRN NAUSEA Oxycodone HCl 5 mg 09/06/19 16:22 Roxicodone - PO Q4H PRN PAIN LEVEL 6-10 Quetiapine Fumarate 12.5 mg 09/04/19 12:15 09/07/19 09:02 Seroquel - PO 12.5 mg DAILY [facility] Administration Sertraline HCl 25 mg 09/02/19 10:00 09/07/19 09:02 Zoloft - PO 25 mg DAILY [facility] Administration Valsartan 80 mg 09/02/19 10:00 09/07/19 09:03 Diovan - PO 80 mg DAILY [facility] Administration Impression 1. azotemia/dehydration 2. dm 3. hip fracture 4. htn 5. s/p fall 6. UTI 7. hypernatremia Plan - change fluids to d5w with potassium as sodium is rising - po intake remains poor - monitor renal function - monitor sodium - avoid nsaids - repeat ua once uti clears
--- NOTE | 2019-09-07 16:58 | PN ---
Teaching Attending Note Name of Resident: Eduardo Rahman ATTENDING PHYSICIAN STATEMENT I saw and evaluated the patient. I reviewed the resident's note and discussed the case with the resident. I agree with the resident's findings and plan as documented. SUBJECTIVE: Patient alert and appears comfortable. Had temp 101.0 overnight. OBJECTIVE: Vital Signs Period Temp Pulse Resp BP Sys/Powers Pulse Ox Last 24 Hr 98.1 F-101.0 F 62-74 18-20 121-156/44-74 95-97 HEART: S1S2, RRR, (+) 3/6 SM LUNGS: Clear ABDOMEN: Soft, non-tender, non-distended, normal BS EXTREMITIES: No edema Laboratory Results - last 24 hr 09/06/19 09/07/19 09/07/19 21:09 06:32 08:40 WBC 12.7 H RBC 3.47 L Hgb 9.3 L Hct 28.8 L MCV 83.0 MCH 26.7 MCHC 32.1 RDW 13.1 Plt Count 353 MPV 9.4 Absolute Neuts (auto) 9.9 H Neutrophils % 77.7 Lymphocytes % 12.3 D Monocytes % 8.1 Eosinophils % 1.4 Basophils % 0.5 Nucleated RBC % 0 Sodium Potassium Chloride Carbon Dioxide Anion Gap BUN Creatinine Est GFR (CKD-EPI)AfAm Est GFR (CKD-EPI)NonAf POC Glucometer 131 191 Random Glucose Calcium 09/07/19 09/07/19 08:40 11:08 WBC RBC Hgb Hct MCV MCH MCHC RDW Plt Count MPV Absolute Neuts (auto) Neutrophils % Lymphocytes % Monocytes % Eosinophils % Basophils % Nucleated RBC % Sodium 146 H Potassium 3.8 Chloride 117 H Carbon Dioxide 21 Anion Gap 8 BUN 27.6 H Creatinine 0.8 Est GFR (CKD-EPI)AfAm 77.37 Est GFR (CKD-EPI)NonAf 66.76 POC Glucometer 272 Random Glucose 255 H Calcium 8.7 Current Medications Generic Name Dose Route Start Last Admin Trade Name Freq PRN Reason Stop Dose Admin Acetaminophen 650 mg 09/01/19 13:30 09/07/19 13:30 Tylenol - PO Not Given Q6H [facility] Amlodipine Besylate 5 mg 09/07/19 13:40 Norvasc - PO DAILY [facility] Docusate Sodium 100 mg 09/01/19 22:00 09/07/19 09:03 Colace - PO Not Given BID [facility] Enoxaparin Sodium 40 mg 09/02/19 10:00 09/07/19 09:02 Lovenox - SQ 40 mg DAILY [facility] Administration Ertapenem 1 gm/ Sodium 50 mls @ 100 mls/hr 09/03/19 10:00 09/07/19 09:39 Chloride IVPB 100 mls/hr DAILY [facility] Administration Potassium Chloride 10 meq/ 1,005 mls @ 55 mls/hr 09/07/19 16:00 Dextrose IVPB Q18H [facility] Insulin Aspart 1 vial 09/01/19 16:30 09/07/19 11:10 Novolog Vial Sliding Scale - SQ 6 units ACHS [facility] Administration Protocol Insulin Detemir 8 units 09/05/19 07:57 09/07/19 06:41 Levemir Vial SQ 8 units AM [facility] Administration Lorazepam 1 mg 09/04/19 12:03 Ativan Injection - IM Q8H PRN AGITATION Metoprolol Succinate 12.5 mg 09/07/19 13:45 09/07/19 14:15 Toprol Xl - PO Not Given DAILY [facility] Miconazole Nitrate 1 applic 09/01/19 22:00 09/06/19 21:03 Monistat-7 Vaginal Cream - VG 09/07/19 22:01 1 applic HS [facility] Administration Naloxone HCl 0.4 mg 09/01/19 13:21 Narcan - IVPUSH ONCE PRN Sedation Ondansetron HCl 4 mg 09/01/19 13:21 Zofran Injection IVPUSH ONCE PRN NAUSEA Oxycodone HCl 5 mg 09/06/19 16:22 Roxicodone - PO Q4H PRN PAIN LEVEL 6-10 Quetiapine Fumarate 12.5 mg 09/04/19 12:15 09/07/19 09:02 Seroquel - PO 12.5 mg DAILY [facility] Administration Sertraline HCl 25 mg 09/02/19 10:00 09/07/19 09:02 Zoloft - PO 25 mg DAILY [facility] Administration Valsartan 80 mg 09/02/19 10:00 09/07/19 09:03 Diovan - PO 80 mg DAILY [facility] Administration ASSESSMENT AND PLAN: This is an 87 year old woman with a history of HTN, type 2 DM, depression who presented to the ED with right hip pain after a fall. 1. Intertrochanteric right femur fracture - s/p right femur IM gamma nail 09/01 - Pain control - Continue PT 2. Possible UTI - Still febrile with increasing WBC - Has history of ESBL E. coli - Continue ertapenem 3. Acute metabolic encephalopathy - Improving 4. s/p fall 5. HTN - Continue Norvasc, Diovan, Toprol XL 6. Demand ischemia 7. Type 2 DM - Continue Levemir, Novolog sliding scale 8. Depression - Continue Zoloft, Seroquel 9. Hypernatremia - IV D5W started - Monitor electrolytes
[2019-09-07] MEDS: POTASSIUM CHLORIDE 10 MEQ in DEXTROSE 5%-WATER - 1,000 ML IVPB SCH (18:06)
[2019-09-07] MEDS ORDERED: ACETAMINOPHEN 1000 MG/100 ML VIAL (NON FORMULARY) IVPB ONE (19:27)
[2019-09-07] MEDS: MICONAZOLE NITRATE 2% VAGINAL CREAM 45 GM TUBE VG SCH (22:19)
[2019-09-08] MEDS: ACETAMINOPHEN 325 MG TABLET (FP) PO SCH ×4 (01:31→21:27)
[2019-09-08] MEDS: INSULIN SLIDING SCALE (NOVOLOG) 1 VIAL SQ SCH ×4 (06:51→21:28)
[2019-09-08] MEDS: INSULIN (LEVEMIR) 100 UNITS/ML UNITS SQ SCH (06:51)
--- NOTE | 2019-09-08 07:34 | PN ---
Physical Exam: SUBJECTIVE: Patient seen and examined denies nay fever or chills over night , has agitation last night , on ertapenem and 42 CC of d5 1/2 NS family at bed side POD#7 seen by cardiology who recommend decrease Amlodipin to 5 and start toprol XL 12.5 daily dc fluids OBJECTIVE: Vital Signs Period Temp Pulse Resp BP Sys/Powers Pulse Ox Last 24 Hr 97.6 F-98.5 F 62-84 18-20 121-154/44-74 95-98 GENERAL:awake alert byt lethargic HEAD: NC/AT EYES: Pupils equal, round and reactive to light, extraocular movements intact, EARS, NOSE, THROAT: dry mucous membranes. NECK: Normal range of motion, supple LUNGS: Breath sounds equal, clear to auscultation bilaterally. No wheezes, and no crackles. No accessory muscle use. HEART: Regular rate and rhythm, normal S1 and S2,4/6 systolic murmur all over RUSB , LUSB radiated to neck ABDOMEN: Soft, nontender, not distended, normoactive bowel sounds, UPPER EXTREMITIES: 2+ pulses, warm, well-perfused. hand with erythema as she bite her self LOWER EXTREMITIES: 2+ pulses, warm, well-perfused. No calf tenderness. No peripheral edema. right leg S/P gamma Nail IM with stitches , +2 DP, left leg FROM proximal and distal , NEUROLOGICAL: no focal deficit . PSYCHIATRIC: agitated SKIN: Warm, dry, normal turgor, Laboratory Results - last 24 hr 09/07/19 09/07/19 09/07/19 08:40 08:40 11:08 WBC 12.7 H RBC 3.47 L Hgb 9.3 L Hct 28.8 L MCV 83.0 MCH 26.7 MCHC 32.1 RDW 13.1 Plt Count 353 MPV 9.4 Absolute Neuts (auto) 9.9 H Neutrophils % 77.7 Lymphocytes % 12.3 D Monocytes % 8.1 Eosinophils % 1.4 Basophils % 0.5 Nucleated RBC % 0 Sodium 146 H Potassium 3.8 Chloride 117 H Carbon Dioxide 21 Anion Gap 8 BUN 27.6 H Creatinine 0.8 Est GFR (CKD-EPI)AfAm 77.37 Est GFR (CKD-EPI)NonAf 66.76 POC Glucometer 272 Random Glucose 255 H Calcium 8.7 09/07/19 09/07/19 09/08/19 17:05 20:51 06:05 WBC RBC Hgb Hct MCV MCH MCHC RDW Plt Count MPV Absolute Neuts (auto) Neutrophils % Lymphocytes % Monocytes % Eosinophils % Basophils % Nucleated RBC % Sodium Potassium Chloride Carbon Dioxide Anion Gap BUN Creatinine Est GFR (CKD-EPI)AfAm Est GFR (CKD-EPI)NonAf POC Glucometer 153 182 230 Random Glucose Calcium Active Medications Generic Name Dose Route Start Last Admin Trade Name Freq PRN Reason Stop Dose Admin Acetaminophen 650 mg 09/01/19 13:30 09/08/19 06:47 Tylenol - PO Not Given Q6H [facility] Amlodipine Besylate 5 mg 09/07/19 13:40 Norvasc - PO DAILY [facility] Docusate Sodium 100 mg 09/01/19 22:00 09/07/19 22:08 Colace - PO Not Given BID [facility] Enoxaparin Sodium 40 mg 09/02/19 10:00 09/07/19 09:02 Lovenox - SQ 40 mg DAILY [facility] Administration Ertapenem 1 gm/ Sodium 50 mls @ 100 mls/hr 09/03/19 10:00 09/07/19 09:39 Chloride IVPB 100 mls/hr DAILY [facility] Administration Potassium Chloride 10 meq/ 1,005 mls @ 55 mls/hr 09/07/19 16:00 09/07/19 18: 06 Dextrose IVPB 55 mls/hr Q18H [facility] Administration Insulin Aspart 1 vial 09/01/19 16:30 09/08/19 06:51 Novolog Vial Sliding Scale - SQ 4 units ACHS [facility] Administration Protocol Insulin Detemir 8 units 09/05/19 07:57 09/08/19 06:51 Levemir Vial SQ 8 units AM [facility] Administration Lorazepam 1 mg 09/04/19 12:03 09/07/19 23:13 Ativan Injection - IM 1 mg Q8H PRN Administration AGITATION Metoprolol Succinate 12.5 mg 09/07/19 13:45 09/07/19 14:15 Toprol Xl - PO Not Given DAILY [facility] Naloxone HCl 0.4 mg 09/01/19 13:21 Narcan - IVPUSH ONCE PRN Sedation Ondansetron HCl 4 mg 09/01/19 13:21 Zofran Injection IVPUSH ONCE PRN NAUSEA Oxycodone HCl 5 mg 09/06/19 16:22 Roxicodone - PO Q4H PRN PAIN LEVEL 6-10 Quetiapine Fumarate 12.5 mg 09/04/19 12:15 09/07/19 09:02 Seroquel - PO 12.5 mg DAILY [facility] Administration Sertraline HCl 25 mg 09/02/19 10:00 09/07/19 09:02 Zoloft - PO 25 mg DAILY [facility] Administration Valsartan 80 mg 09/02/19 10:00 09/07/19 09:03 Diovan - PO 80 mg DAILY [facility] Administration CBC, BMP 09/08/19 10:20 09/08/19 10:20 ASSESSMENT/PLAN: This is a 87 year old female with a history of IDDM, HTN, diverticulosis, depression, presented with after fall on her right side found to have right hip fx and elevated trop # Right intertrochanter fx S/P fall S/P IM Gamma nail POD #5 * admit to tele * xray reviewed , head CT negative for acute pathology * pain control iV morphin 2 mg Q 4hr , Oxy 5 and 10 and fentanyl patches * Echo was done in september 2018 wit EF 70 % and mild D chf grade II , Mild and AR , will repeat as more than 6 month * resume diet * dc IV fluids * cont ertapeneim # UTI with history f ESBL echoli consult ID switch abx to ertapinim dc Vanco follow cx and sensiticity , wbc elevated today cont to mmonitor cbc daily # Dilirious 2/2 UTI vs surgery vs medication SE , improving * consult psych * QTC 466 * , can Giv Atiavn low dose Q 6 hr as needed for agitation avoid haldol for now as QTC is borderline * started on Seraquel * head of bed elevation , aspiration precautions #fall 2/2 syncope vs dehydration vs mechanical fall vs imbalance gait VS UTI * head CT negative for acute pathology * echo reviewed EF 65 % , LVH , mild MR and TR and AR , normal LV function * bp monitor * PT eval after surgery * will benefit from JOELLEN #Hypertensive , non compliant with her meds * cont valsartan 80 mg qD hold for BP below 100 * decrease norvasc to 5 mg qd hold for sytolic less than 100 * start on Torol XL 12.5 Daily per cardiology #elevated troponin likely demand ischemia , no EKG changes , * trend trop * ACS unlikely; likely demand ischemia * echo reviewed * cardiology consulted #DM , uncontrolled 2/2 non compliant , A1c 13 * last hemoglobin a1c 10.repeat 13 * currently on ISS, add levimer 8 units SQ once * hold oral agents * diabetic diet #depression with suicidal ideation * on zoloft, cont * start seraquel # 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 - New Patient This patient is new to me today: No - Critical Care Critical Care patient: No ATTENDING PHYSICIAN STATEMENT I saw and evaluated the patient. I reviewed the resident's note and discussed the case with the resident. I agree with the resident's findings and plan as documented. SUBJECTIVE: OBJECTIVE: ASSESSMENT AND PLAN:
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
[2019-09-08] MEDS: ENOXAPARIN NA (PORCINE) 40 MG/0.4 ML DISP.SYRIN SQ SCH (10:02)
[2019-09-08] MEDS: SERTRALINE HCL 25 MG TABLET (FP) PO SCH (10:02)
[2019-09-08] MEDS: QUEtiapine FUMARATE 25 MG TABLET PO SCH (10:04)
[2019-09-08] MEDS: ERTAPENEM SODIUM 1 GM in SODIUM CHLORIDE 50 ML IVPB SCH (10:04)
[2019-09-08] MEDS: metoPROLOL SUCCINATE 25 MG TAB.SR.24H (FP) PO SCH (10:05)
[2019-09-08] MEDS: POTASSIUM CHLORIDE 10 MEQ in DEXTROSE 5%-WATER - 1,000 ML IVPB SCH (10:05)
[2019-09-08] MEDS: DOCUSATE SODIUM 100 MG CAPSULE (FP) PO SCH ×2 (10:05→21:28)
[2019-09-08] MEDS: amLODIPine BESYLATE 10 MG TABLET (FP) PO SCH (10:13)
[2019-09-08] MEDS: VALSARTAN 80 MG TABLET (UD) PO SCH (10:13)
[2019-09-08 10:39] LABS: BASO % 0.4 % (0-2.0); EOS % 2.2 % (0-4.5); HEMATOCRIT 27.7 % (32.4-45.2); HEMOGLOBIN 8.9 GM/dL (10.7-15.3); LYMPH % 16.5 % (8-40); MCH 26.8 pg (25.7-33.7); MCHC 31.9 g/dl (32.0-36.0); MEAN CELL VOLUME 83.8 fl (80-96); MEAN PLT VOLUME 9.3 fl (7.5-11.1); MONO % 7.4 % (3.8-10.2); NEUT % 73.5 % (42.8-82.8); PLATELET COUNT 376 K/MM3 (134-434); RBC 3.31 M/mm3 (3.60-5.2); RDW 13.2 % (11.6-15.6); WHITE BLOOD COUNT 14.1 K/mm3 (4.0-10.0)
[2019-09-08 11:20] LABS: ALBUMIN 1.9 g/dl (3.4-5.0); BILIRUBIN,TOTAL 0.4 mg/dL (0.2-1); BLOOD UREA NITROGEN 30.9 mg/dL (7-18); CALCIUM 8.6 mg/dL (8.5-10.1); CREATININE 0.9 mg/dL (0.55-1.3); POTASSIUM 3.4 mmol/L (3.5-5.1)
[2019-09-08] MEDS ORDERED: PT OWN MED DRAWER 7, Y5N ONE (11:57)
[2019-09-08] MEDS: NYSTATIN POWDER 100,000 UNITS/GM - 15 GM TOPICAL POWDER TP SCH (11:58)
[2019-09-08] MEDS ORDERED: KCL 10 MEQ IVPB 10 MEQ/100 ML INFUS.BAG IVPB SCH (12:15)
--- NOTE | 2019-09-08 12:15 | PN ---
Progress Note, Physician History of Present Illness: Pt seen and examined at bedside. She is lethargic and PO intake remains poor. - Current Medication List Current Medications: Active Medications Acetaminophen (Tylenol -) 650 mg PO Q6H [facility] Last Admin: 09/08/19 06:47 Dose: Not Given Amlodipine Besylate (Norvasc -) 5 mg PO DAILY [facility] Last Admin: 09/08/19 10:13 Dose: Not Given Docusate Sodium (Colace -) 100 mg PO BID [facility] Last Admin: 09/08/19 10:05 Dose: Not Given Enoxaparin Sodium (Lovenox -) 40 mg SQ DAILY [facility] Last Admin: 09/08/19 10:02 Dose: 40 mg Ertapenem 1 gm/ Sodium (Chloride) 50 mls @ 100 mls/hr IVPB DAILY [facility] Last Admin: 09/08/19 10:04 Dose: 100 mls/hr Potassium Chloride (Potassium Chloride 10 Meq Premix Ivpb -) 10 meq in 100 mls @ 100 mls/hr IVPB Q60M [facility] Stop: 09/08/19 13:14 Potassium Chloride 20 meq/ (Dextrose) 1,010 mls @ 55 mls/hr IVPB Q18H [facility] Insulin Aspart (Novolog Vial Sliding Scale -) 1 vial SQ ACHS [facility]; Protocol Last Admin: 09/08/19 11:56 Dose: Not Given Insulin Detemir (Levemir Vial) 8 units SQ AM [facility] Last Admin: 09/08/19 06:51 Dose: 8 units Lorazepam (Ativan Injection -) 1 mg IM Q8H PRN PRN Reason: AGITATION Last Admin: 09/07/19 23:13 Dose: 1 mg Metoprolol Succinate (Toprol Xl -) 12.5 mg PO DAILY [facility] Last Admin: 09/08/19 10:05 Dose: Not Given Naloxone HCl (Narcan -) 0.4 mg IVPUSH ONCE PRN PRN Reason: Sedation Nystatin (Nystop Powder -) 1 applic TP DAILY [facility] Last Admin: 09/08/19 11:58 Dose: 1 applic Ondansetron HCl (Zofran Injection) 4 mg IVPUSH ONCE PRN PRN Reason: NAUSEA Oxycodone HCl (Roxicodone -) 5 mg PO Q4H PRN PRN Reason: PAIN LEVEL 6-10 Quetiapine Fumarate (Seroquel -) 12.5 mg PO DAILY [facility] Last Admin: 09/08/19 10:04 Dose: Not Given Sertraline HCl (Zoloft -) 25 mg PO DAILY [facility] Last Admin: 09/08/19 10:02 Dose: Not Given Valsartan (Diovan -) 80 mg PO DAILY [facility] Last Admin: 09/08/19 10:13 Dose: Not Given - Objective Vital Signs: Vital Signs Temperature 97.9 F 09/08/19 10:00 Pulse Rate 62 09/08/19 10:00 Respiratory Rate 16 09/08/19 10:00 Blood Pressure 112/43 L 09/08/19 10:00 O2 Sat by Pulse Oximetry (%) 98 09/07/19 21:00 Constitutional: Yes: Calm Eyes: Yes: Conjunctiva Clear HENT: Yes: Atraumatic Neck: Yes: Supple Cardiovascular: Yes: S1, S2 Respiratory: Yes: CTA Bilaterally Gastrointestinal: Yes: Normal Bowel Sounds, Soft Genitourinary: Yes: WNL Musculoskeletal: Yes: Muscle Weakness Edema: No Integumentary: Yes: WNL Neurological: Yes: Lethargy Labs: CBC, BMP 09/08/19 10:20 09/08/19 10:20 INR, PTT INR 1.08 (0.83-1.09) 08/31/19 05:10 Problem List - Problems (1) Hip fracture, right Code(s): S72.001A - FRACTURE OF UNSP PART OF NECK OF RIGHT FEMUR, INIT (2) Hypertension Code(s): I10 - ESSENTIAL (PRIMARY) HYPERTENSION Qualifiers: Qualified Code(s): I10 - Essential (primary) hypertension Assessment/Plan Current Medications Generic Name Dose Route Start Last Admin Trade Name Travis PRN Reason Stop Dose Admin Acetaminophen 650 mg 09/01/19 13:30 09/08/19 06:47 Tylenol - PO Not Given Q6H [facility] Amlodipine Besylate 5 mg 09/07/19 13:40 09/08/19 10:13 Norvasc - PO Not Given DAILY [facility] Docusate Sodium 100 mg 09/01/19 22:00 09/08/19 10:05 Colace - PO Not Given BID [facility] Enoxaparin Sodium 40 mg 09/02/19 10:00 09/08/19 10:02 Lovenox - SQ 40 mg DAILY [facility] Administration Ertapenem 1 gm/ Sodium 50 mls @ 100 mls/hr 09/03/19 10:00 09/08/19 10:04 Chloride IVPB 100 mls/hr DAILY [facility] Administration Potassium Chloride 20 meq/ 1,010 mls @ 55 mls/hr 09/08/19 12:12 Dextrose IVPB Q18H [facility] Insulin Aspart 1 vial 09/01/19 16:30 09/08/19 11:56 Novolog Vial Sliding Scale - SQ Not Given ACHS [facility] Protocol Insulin Detemir 8 units 09/05/19 07:57 09/08/19 06:51 Levemir Vial SQ 8 units AM [facility] Administration Lorazepam 1 mg 09/04/19 12:03 09/07/19 23:13 Ativan Injection - IM 1 mg Q8H PRN Administration AGITATION Metoprolol Succinate 12.5 mg 09/07/19 13:45 09/08/19 10:05 Toprol Xl - PO Not Given DAILY [facility] Naloxone HCl 0.4 mg 09/01/19 13:21 Narcan - IVPUSH ONCE PRN Sedation Nystatin 1 applic 09/08/19 10:00 09/08/19 11:58 Nystop Powder - TP 1 applic DAILY [facility] Administration Ondansetron HCl 4 mg 09/01/19 13:21 Zofran Injection IVPUSH ONCE PRN NAUSEA Oxycodone HCl 5 mg 09/06/19 16:22 Roxicodone - PO Q4H PRN PAIN LEVEL 6-10 Quetiapine Fumarate 12.5 mg 09/04/19 12:15 09/08/19 10:04 Seroquel - PO Not Given DAILY [facility] Sertraline HCl 25 mg 09/02/19 10:00 09/08/19 10:02 Zoloft - PO Not Given DAILY [facility] Valsartan 80 mg 09/02/19 10:00 09/08/19 10:13 Diovan - PO Not Given DAILY [facility] Impression 1. azotemia/dehydration 2. dm 3. hip fracture 4. htn 5. s/p fall 6. UTI 7. hypernatremia Plan - cont fluids, will increase potassium - sodium improving - pt has poor po intake - avoid nsaids - repeat ua once uti clears
--- NOTE | 2019-09-08 12:21 | PN ---
Progress Note, Physician History of Present Illness: POD#9 Right IT fx post right IM gamma nail w/o sequelae. Still lethargic with decreased oral intake, given Ativan overnight. - Current Medication List Current Medications: Active Medications Acetaminophen (Tylenol -) 650 mg PO Q6H [facility] [place] Last Admin: 09/08/19 06:47 Dose: Not Given Amlodipine Besylate (Norvasc -) 5 mg PO DAILY [facility] [place] Last Admin: 09/08/19 10:13 Dose: Not Given Docusate Sodium (Colace -) 100 mg PO BID [facility] [place] Last Admin: 09/08/19 10:05 Dose: Not Given Enoxaparin Sodium (Lovenox -) 40 mg SQ DAILY [facility] [place] Last Admin: 09/08/19 10:02 Dose: 40 mg Ertapenem 1 gm/ Sodium (Chloride) 50 mls @ 100 mls/hr IVPB DAILY [facility] [place] Last Admin: 09/08/19 10:04 Dose: 100 mls/hr Potassium Chloride 20 meq/ (Dextrose) 1,010 mls @ 55 mls/hr IVPB Q18H [facility] [place] Insulin Aspart (Novolog Vial Sliding Scale -) 1 vial SQ ACHS [facility] [place]; Protocol Last Admin: 09/08/19 11:56 Dose: Not Given Insulin Detemir (Levemir Vial) 8 units SQ AM [facility] [place] Last Admin: 09/08/19 06:51 Dose: 8 units Lorazepam (Ativan Injection -) 1 mg IM Q8H PRN PRN Reason: AGITATION Last Admin: 09/07/19 23:13 Dose: 1 mg Metoprolol Succinate (Toprol Xl -) 12.5 mg PO DAILY [facility] [place] Last Admin: 09/08/19 10:05 Dose: Not Given Naloxone HCl (Narcan -) 0.4 mg IVPUSH ONCE PRN PRN Reason: Sedation Nystatin (Nystop Powder -) 1 applic TP DAILY [facility] [place] Last Admin: 09/08/19 11:58 Dose: 1 applic Ondansetron HCl (Zofran Injection) 4 mg IVPUSH ONCE PRN PRN Reason: NAUSEA Oxycodone HCl (Roxicodone -) 5 mg PO Q4H PRN PRN Reason: PAIN LEVEL 6-10 Quetiapine Fumarate (Seroquel -) 12.5 mg PO DAILY [facility] [place] Last Admin: 09/08/19 10:04 Dose: Not Given Sertraline HCl (Zoloft -) 25 mg PO DAILY [facility] [place] Last Admin: 09/08/19 10:02 Dose: Not Given Valsartan (Diovan -) 80 mg PO DAILY [facility] [place] Last Admin: 09/08/19 10:13 Dose: Not Given - Objective Vital Signs: Vital Signs Temperature 97.9 F 09/08/19 10:00 Pulse Rate 62 09/08/19 10:00 Respiratory Rate 16 09/08/19 10:00 Blood Pressure 112/43 L 09/08/19 10:00 O2 Sat by Pulse Oximetry (%) 98 09/07/19 21:00 Constitutional: Yes: No Distress, Calm, Thin Neck: Yes: Supple Cardiovascular: Yes: Regular Rate and Rhythm Respiratory: Yes: Regular, CTA Bilaterally Gastrointestinal: Yes: Soft, Hypoactive Bowel Sounds Edema: No Labs: CBC, BMP 09/08/19 10:20 09/08/19 10:20 INR, PTT INR 1.08 (0.83-1.09) 08/31/19 05:10 Assessment/Plan Problem List - Problems (1) Diabetes mellitus Code(s): E11.9 - TYPE 2 DIABETES MELLITUS WITHOUT COMPLICATIONS (2) Hip fracture, right Code(s): S72.001A - FRACTURE OF UNSP PART OF NECK OF RIGHT FEMUR, INIT (3) Mitral regurgitation Code(s): I34.0 - NONRHEUMATIC MITRAL (VALVE) INSUFFICIENCY Qualifiers: Cardiac valve disease etiology: nonrheumatic Qualified Code(s): I34.0 - Nonrheumatic mitral (valve) insufficiency (4) Aortic regurgitation Code(s): I35.1 - NONRHEUMATIC AORTIC (VALVE) INSUFFICIENCY Qualifiers: Cardiac valve disease etiology: nonrheumatic Qualified Code(s): I35.1 - Nonrheumatic aortic (valve) insufficiency (5) Hypertension Code(s): I10 - ESSENTIAL (PRIMARY) HYPERTENSION Qualifiers: Hypertension type: essential hypertension Qualified Code(s): I10 - Essential (primary) hypertension Echo (Normal LVEF, mild AR, mild MR, trace TR) Assessment/Plan 08/31/2019 Severe cLVH normal LVEF 65%, mild MR, AR, tr TR 1. Post fall resulting in right Intra-trochanteric fracture POD#9 post right intra-medullary gamma nail 2. Coronary artery disease with evidence of demand ischemia angina pectoris 3. Probable diastolic left ventricular dysfunction with clinical class 0 [place] [employer] classification left ventricular failure 4. HTN 5. Diabetes Mellitus 6. 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 Urinary tract infection post abx course PLAN: 1. Continue Diovan 80 qd 2. Continue Amlodipine 5 qd, Toprol-XL 12.5 qd 3. Observe off antibiotics per ID 4. To initiate physical therapy
--- NOTE | 2019-09-08 13:28 | PN ---
Progress Note (short form) - Note Progress Note: recognized her son and spoke to him yesterday received ativan chrei am- stil sleepy and yawning poor appetite Vital Signs Period Temp Pulse Resp BP Sys/Powers Pulse Ox Last 24 Hr 97.6 F-98.3 F 62-84 16-20 112-154/43-59 98-98 cor-rrr lungs clear abd soft,nt et no edema CBC, BMP 09/08/19 10:20 09/08/19 10:20 Microbiology 09/02/19 17:20 Blood - Peripheral Venous Blood Culture - Final NO GROWTH AFTER 5 DAYS INCUBATION 09/02/19 17:20 Blood - Peripheral Venous Blood Culture - Final NO GROWTH AFTER 5 DAYS INCUBATION 09/02/19 18:00 Urine - Urine - Catheterized Urine Culture - Final Yeast Like Organism a/p fevers-resolved postop day #7 s/p gamma nail delirium post hip fracture-improving d/c antibiotics and observe Problem List - Problems (1) Postoperative fever Code(s): R50.82 - POSTPROCEDURAL FEVER (2) Hip fracture, right Code(s): S72.001A - FRACTURE OF UNSP PART OF NECK OF RIGHT FEMUR, INIT (3) UTI (urinary tract infection) Code(s): N39.0 - URINARY TRACT INFECTION, SITE NOT SPECIFIED
[2019-09-08] MEDS: POTASSIUM CHLORIDE 20 MEQ in DEXTROSE 5%-WATER - 1,000 ML IVPB SCH (13:33)
[2019-09-08] MEDS ORDERED: LORazepam 2 MG/ML SDV VIAL IM PRN (14:42)
[2019-09-08] MEDS ORDERED: POTASSIUM CHLORIDE TABS 20 MEQ TABLET.ER (FP) PO ONE (14:43)
[2019-09-08] MEDS ORDERED: oxyCODONE HCL 5 MG TABLET PO PRN (16:31)
--- NOTE | 2019-09-08 16:52 | PN ---
Teaching Attending Note Name of Resident: Eduardo Rahman ATTENDING PHYSICIAN STATEMENT I saw and evaluated the patient. I reviewed the resident's note and discussed the case with the resident. I agree with the resident's findings and plan as documented. SUBJECTIVE: Patient seen and examined at bedside. Tired appearing, delirious, family endorses she's not herself. ?due to benzos/pain meds, will decrease and observe. VS otherwise stable. OBJECTIVE: GENERAL: AAox0, tired appearing, lethargic, dry MM HEAD: NC/AT, no facial lacerations or scalp trauma EYES: Pupils equal, round and reactive to light, extraocular movements intact, ENT: dry MM NECK: Normal range of motion, supple LUNGS: CTAB, poor inspiratory effort HEART: S1, S2+, SULEMAN+ ABDOMEN: Soft, nontender, not distended, normoactive bowel sounds, UPPER EXTREMITIES: 2+ pulses, warm, well-perfused. No cyanosis. No clubbing. No peripheral edema. LOWER EXTREMITIES: 2+ pulses, warm, well-perfused. No calf tenderness. No peripheral edema. RLE abducted and shorter than LLE, severe pain in RLE on manipulation, good ROM LLE, limited motion RLE d/t pain NEUROLOGICAL: tired appearing, delirius, rigid extremities PSYCHIATRIC: Cooperative. sometimes repeating herself saying "I'm sorry" SKIN: Warm, dry, normal turgor. Vital Signs - 24 hr 09/07/19 09/07/19 09/07/19 18:00 21:00 22:00 Temperature 97.6 F 98.0 F Pulse Rate 68 84 Respiratory 18 20 Rate Blood Pressure 147/54 L 154/59 L O2 Sat by Pulse 98 Oximetry (%) 09/08/19 09/08/19 09/08/19 06:00 10:00 13:38 Temperature 98.1 F 97.9 F 97.6 F Pulse Rate 62 62 68 Respiratory 18 16 16 Rate Blood Pressure 127/49 L 112/43 L 122/44 L O2 Sat by Pulse 98 Oximetry (%) Microbiology 09/02/19 17:20 Blood - Peripheral Venous Blood Culture - Final NO GROWTH AFTER 5 DAYS INCUBATION 09/02/19 17:20 Blood - Peripheral Venous Blood Culture - Final NO GROWTH AFTER 5 DAYS INCUBATION 09/02/19 18:00 Urine - Urine - Catheterized Urine Culture - Final Yeast Like Organism Laboratory Results - last 24 hr 09/07/19 09/07/19 09/08/19 17:05 20:51 06:05 WBC RBC Hgb Hct MCV MCH MCHC RDW Plt Count MPV Absolute Neuts (auto) Neutrophils % Lymphocytes % Monocytes % Eosinophils % Basophils % Nucleated RBC % Sodium Potassium Chloride Carbon Dioxide Anion Gap BUN Creatinine Est GFR (CKD-EPI)AfAm Est GFR (CKD-EPI)NonAf POC Glucometer 153 182 230 Random Glucose Calcium Total Bilirubin AST ALT Alkaline Phosphatase Total Protein Albumin 09/08/19 09/08/19 09/08/19 10:20 10:20 11:54 WBC 14.1 H RBC 3.31 L Hgb 8.9 L Hct 27.7 L MCV 83.8 MCH 26.8 MCHC 31.9 L RDW 13.2 Plt Count 376 MPV 9.3 Absolute Neuts (auto) 10.3 H Neutrophils % 73.5 Lymphocytes % 16.5 D Monocytes % 7.4 Eosinophils % 2.2 Basophils % 0.4 Nucleated RBC % 0 Sodium 142 Potassium 3.4 L Chloride 111 H Carbon Dioxide 23 Anion Gap 7 L BUN 30.9 H Creatinine 0.9 Est GFR (CKD-EPI)AfAm 67.10 Est GFR (CKD-EPI)NonAf 57.90 POC Glucometer 136 Random Glucose 199 H Calcium 8.6 Total Bilirubin 0.4 AST 16 ALT 20 Alkaline Phosphatase 79 Total Protein 5.0 L Albumin 1.9 L Current Medications Generic Name Dose Route Start Last Admin Trade Name Freq PRN Reason Stop Dose Admin Acetaminophen 650 mg 09/01/19 13:30 09/08/19 13:33 Tylenol - PO Not Given Q6H [facility] Amlodipine Besylate 5 mg 09/07/19 13:40 09/08/19 10:13 Norvasc - PO Not Given DAILY [facility] Docusate Sodium 100 mg 09/01/19 22:00 09/08/19 10:05 Colace - PO Not Given BID [facility] Enoxaparin Sodium 40 mg 09/02/19 10:00 09/08/19 10:02 Lovenox - SQ 40 mg DAILY [facility] Administration Potassium Chloride 20 meq/ 1,010 mls @ 55 mls/hr 09/08/19 12:12 09/08/19 13: 33 Dextrose IVPB 55 mls/hr Q18H [facility] Administration Insulin Aspart 1 vial 09/01/19 16:30 09/08/19 11:56 Novolog Vial Sliding Scale - SQ Not Given ACHS [facility] Protocol Insulin Detemir 8 units 09/05/19 07:57 09/08/19 06:51 Levemir Vial SQ 8 units AM [facility] Administration Lorazepam 0.5 mg 09/08/19 14:42 Ativan Injection - IM Q8H PRN [facility] Metoprolol Succinate 12.5 mg 09/07/19 13:45 09/08/19 10:05 Toprol Xl - PO Not Given DAILY [facility] Naloxone HCl 0.4 mg 09/01/19 13:21 Narcan - IVPUSH ONCE PRN Sedation Nystatin 1 applic 09/08/19 10:00 09/08/19 11:58 Nystop Powder - TP 1 applic DAILY [facility] Administration Ondansetron HCl 4 mg 09/01/19 13:21 Zofran Injection IVPUSH ONCE PRN NAUSEA Oxycodone HCl 5 mg 09/08/19 16:31 Roxicodone - PO Q12H PRN PAIN LEVEL 6-10 Quetiapine Fumarate 12.5 mg 09/04/19 12:15 09/08/19 10:04 Seroquel - PO Not Given DAILY [facility] Sertraline HCl 25 mg 09/02/19 10:00 09/08/19 10:02 Zoloft - PO Not Given DAILY [facility] Valsartan 80 mg 09/02/19 10:00 09/08/19 10:13 Diovan - PO Not Given DAILY [facility] A/P: 88 F h/o IDDM, HTN, diverticulosis, depression presents s/p fall ?mechanical v.s. syncopal, and troponemia. Right intertrochanter fx S/P fall s/p gamma nail POD #7 fevers resolved, will observe off abx as per ID recs lower frequency of opioids (due to lethargy/worsening delirium) to Endocet q12H PRN Ativan 0.5mg Q12H PRN only for severe anxiety, combativeness etc. frequent re-positioning, encourage PO intake, ?appetite stimulant would be of benefit hypokalemia replete monitor chem HTN cont. BP meds avoid hypotension d/t poor oral intake T2DM ISS, monitor FS (not eating watch for hypoglycemia) Depression with worsening delirium Hold psych meds, Ativan (if possible), and observe counseled family regarding re-orientation, they will bring in familiar house objects (blanket, family photos and pics etc.) Psych follow up: Dr Orr DVT ppx: Patrizia cont. Tele
[2019-09-09] MEDS ORDERED: ACETAMINOPHEN 1000 MG/100 ML VIAL (NON FORMULARY) IVPB ONE (02:29)
[2019-09-09] MEDS: ACETAMINOPHEN 325 MG TABLET (FP) PO SCH ×4 (02:29→21:33)
[2019-09-09] MEDS: INSULIN (LEVEMIR) 100 UNITS/ML UNITS SQ SCH (06:13)
[2019-09-09] MEDS: INSULIN SLIDING SCALE (NOVOLOG) 1 VIAL SQ SCH ×4 (06:13→21:33)
[2019-09-09] MEDS: POTASSIUM CHLORIDE 20 MEQ in DEXTROSE 5%-WATER - 1,000 ML IVPB SCH (06:14)
[2019-09-09 06:59] LABS: BASO % 0.6 % (0-2.0); EOS % 2.9 % (0-4.5); HEMATOCRIT 24.4 % (32.4-45.2); HEMOGLOBIN 8.1 GM/dL (10.7-15.3); LYMPH % 22.4 % (8-40); MCH 27.4 pg (25.7-33.7); MCHC 33.4 g/dl (32.0-36.0); MEAN PLT VOLUME 9.3 fl (7.5-11.1); MONO % 9.7 % (3.8-10.2); NEUT % 64.4 % (42.8-82.8); PLATELET COUNT 343 K/MM3 (134-434); RBC 2.98 M/mm3 (3.60-5.2); RDW 13.2 % (11.6-15.6); WHITE BLOOD COUNT 8.8 K/mm3 (4.0-10.0)
[2019-09-09 08:08] LABS: ALBUMIN 1.8 g/dl (3.4-5.0); BILIRUBIN,TOTAL 0.4 mg/dL (0.2-1); BLOOD UREA NITROGEN 29.2 mg/dL (7-18); CALCIUM 8.2 mg/dL (8.5-10.1); CREATININE 0.9 mg/dL (0.55-1.3); POTASSIUM 3.8 mmol/L (3.5-5.1); TOT PROT 4.7 g/dl (6.4-8.2)
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
[2019-09-09] MEDS: DOCUSATE SODIUM 100 MG CAPSULE (FP) PO SCH ×2 (10:03→21:33)
[2019-09-09] MEDS: metoPROLOL SUCCINATE 25 MG TAB.SR.24H (FP) PO SCH (10:03)
[2019-09-09] MEDS: VALSARTAN 80 MG TABLET (UD) PO SCH (10:16)
[2019-09-09] MEDS: amLODIPine BESYLATE 10 MG TABLET (FP) PO SCH (10:16)
[2019-09-09] MEDS: ENOXAPARIN NA (PORCINE) 40 MG/0.4 ML DISP.SYRIN SQ SCH (10:18)
[2019-09-09] MEDS: QUEtiapine FUMARATE 25 MG TABLET PO SCH (10:18)
[2019-09-09] MEDS: NYSTATIN POWDER 100,000 UNITS/GM - 15 GM TOPICAL POWDER TP SCH (10:18)
--- NOTE | 2019-09-09 10:23 | PN ---
Progress Note, Physician History of Present Illness: POD#11 Right IT fx post right IM gamma nail w/o sequelae. Sensorium slowly improving with decreased oral intake. - Current Medication List Current Medications: Active Medications Acetaminophen (Tylenol -) 650 mg PO Q6H [facility] Last Admin: 09/09/19 06:45 Dose: Not Given Amlodipine Besylate (Norvasc -) 5 mg PO DAILY [facility] Last Admin: 09/09/19 10:16 Dose: 5 mg Docusate Sodium (Colace -) 100 mg PO BID [facility] Last Admin: 09/09/19 10:03 Dose: Not Given Enoxaparin Sodium (Lovenox -) 40 mg SQ DAILY [facility] Last Admin: 09/09/19 10:18 Dose: 40 mg Potassium Chloride 20 meq/ (Dextrose) 1,010 mls @ 55 mls/hr IVPB Q18H [facility] Last Admin: 09/09/19 06:14 Dose: 55 mls/hr Insulin Aspart (Novolog Vial Sliding Scale -) 1 vial SQ ACHS [facility]; Protocol Last Admin: 09/09/19 06:13 Dose: 4 units Insulin Detemir (Levemir Vial) 8 units SQ AM [facility] Last Admin: 09/09/19 06:13 Dose: 8 units Lorazepam (Ativan Injection -) 0.5 mg IM Q8H PRN PRN Reason: AGITATION Metoprolol Succinate (Toprol Xl -) 12.5 mg PO DAILY [facility] Last Admin: 09/09/19 10:03 Dose: Not Given Naloxone HCl (Narcan -) 0.4 mg IVPUSH ONCE PRN PRN Reason: Sedation Nystatin (Nystop Powder -) 1 applic TP DAILY [facility] Last Admin: 09/09/19 10:18 Dose: 1 applic Ondansetron HCl (Zofran Injection) 4 mg IVPUSH ONCE PRN PRN Reason: NAUSEA Oxycodone HCl (Roxicodone -) 5 mg PO Q12H PRN PRN Reason: PAIN LEVEL 6-10 Quetiapine Fumarate (Seroquel -) 12.5 mg PO DAILY [facility] Last Admin: 09/09/19 10:18 Dose: 12.5 mg Valsartan (Diovan -) 80 mg PO DAILY [facility] Last Admin: 09/09/19 10:16 Dose: 80 mg - Objective Vital Signs: Vital Signs Temperature 97.7 F 09/09/19 05:06 Pulse Rate 89 09/09/19 05:06 Respiratory Rate 24 H 09/09/19 05:06 Blood Pressure 109/75 09/09/19 05:06 O2 Sat by Pulse Oximetry (%) 100 09/08/19 21:00 Constitutional: Yes: No Distress, Calm Neck: Yes: Supple Cardiovascular: Yes: Regular Rate and Rhythm Respiratory: Yes: Regular, CTA Bilaterally Gastrointestinal: Yes: Normal Bowel Sounds, Soft Edema: No Labs: CBC, BMP 09/09/19 05:50 09/09/19 05:50 INR, PTT INR 1.08 (0.83-1.09) 08/31/19 05:10 Assessment/Plan Problem List - Problems (1) Diabetes mellitus Code(s): E11.9 - TYPE 2 DIABETES MELLITUS WITHOUT COMPLICATIONS (2) Hip fracture, right Code(s): S72.001A - FRACTURE OF UNSP PART OF NECK OF RIGHT FEMUR, INIT (3) Mitral regurgitation Code(s): I34.0 - NONRHEUMATIC MITRAL (VALVE) INSUFFICIENCY Qualifiers: Cardiac valve disease etiology: nonrheumatic Qualified Code(s): I34.0 - Nonrheumatic mitral (valve) insufficiency (4) Aortic regurgitation Code(s): I35.1 - NONRHEUMATIC AORTIC (VALVE) INSUFFICIENCY Qualifiers: Cardiac valve disease etiology: nonrheumatic Qualified Code(s): I35.1 - Nonrheumatic aortic (valve) insufficiency (5) Hypertension Code(s): I10 - ESSENTIAL (PRIMARY) HYPERTENSION Qualifiers: Hypertension type: essential hypertension Qualified Code(s): I10 - Essential (primary) hypertension Echo (Normal LVEF, mild AR, mild MR, trace TR) Assessment/Plan 08/31/2019 Severe cLVH normal LVEF 65%, mild MR, AR, tr TR 1. Post fall resulting in right Intra-trochanteric fracture POD#11 post right intra-medullary gamma nail 2. Coronary artery disease with evidence of demand ischemia angina pectoris 3. Probable diastolic left ventricular dysfunction with clinical class 0 [place] [employer] classification left ventricular failure 4. HTN 5. Diabetes Mellitus 6. 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 Urinary tract infection post abx course PLAN: 1. Continue Diovan 80 qd 2. Continue Amlodipine 5 qd, Toprol-XL 12.5 qd 3. Observe off antibiotics per ID 4. To initiate physical therapy
--- NOTE | 2019-09-09 13:08 | PN ---
Progress Note, Physician History of Present Illness: Pt seen and examined at bedside. She is more awake today. She is starting to eat. - Current Medication List Current Medications: Active Medications Acetaminophen (Tylenol -) 650 mg PO Q6H [facility] Last Admin: 09/09/19 06:45 Dose: Not Given Amlodipine Besylate (Norvasc -) 5 mg PO DAILY [facility] Last Admin: 09/09/19 10:16 Dose: 5 mg Docusate Sodium (Colace -) 100 mg PO BID [facility] Last Admin: 09/09/19 10:03 Dose: Not Given Enoxaparin Sodium (Lovenox -) 40 mg SQ DAILY [facility] Last Admin: 09/09/19 10:18 Dose: 40 mg Potassium Chloride 20 meq/ (Dextrose) 1,010 mls @ 55 mls/hr IVPB Q18H [facility] Last Admin: 09/09/19 06:14 Dose: 55 mls/hr Insulin Aspart (Novolog Vial Sliding Scale -) 1 vial SQ ACHS [facility]; Protocol Last Admin: 09/09/19 11:27 Dose: Not Given Insulin Detemir (Levemir Vial) 8 units SQ AM [facility] Last Admin: 09/09/19 06:13 Dose: 8 units Lorazepam (Ativan Injection -) 0.5 mg IM Q8H PRN PRN Reason: AGITATION Metoprolol Succinate (Toprol Xl -) 12.5 mg PO DAILY [facility] Last Admin: 09/09/19 10:03 Dose: Not Given Naloxone HCl (Narcan -) 0.4 mg IVPUSH ONCE PRN PRN Reason: Sedation Nystatin (Nystop Powder -) 1 applic TP DAILY [facility] Last Admin: 09/09/19 10:18 Dose: 1 applic Ondansetron HCl (Zofran Injection) 4 mg IVPUSH ONCE PRN PRN Reason: NAUSEA Oxycodone HCl (Roxicodone -) 5 mg PO Q12H PRN PRN Reason: PAIN LEVEL 6-10 Quetiapine Fumarate (Seroquel -) 12.5 mg PO DAILY [facility] Last Admin: 09/09/19 10:18 Dose: 12.5 mg Valsartan (Diovan -) 80 mg PO DAILY [facility] Last Admin: 09/09/19 10:16 Dose: 80 mg - Objective Vital Signs: Vital Signs Temperature 98.2 F 09/09/19 10:00 Pulse Rate 82 09/09/19 10:00 Respiratory Rate 150 H 09/09/19 10:00 Blood Pressure 150/69 09/09/19 10:00 O2 Sat by Pulse Oximetry (%) 100 09/08/19 21:00 Constitutional: Yes: Calm Eyes: Yes: Conjunctiva Clear HENT: Yes: Atraumatic Cardiovascular: Yes: S1, S2 Respiratory: Yes: CTA Bilaterally Gastrointestinal: Yes: Soft Genitourinary: Yes: WNL Musculoskeletal: Yes: Muscle Weakness Edema: No Neurological: Yes: Confusion Labs: CBC, BMP 09/09/19 05:50 09/09/19 05:50 INR, PTT INR 1.08 (0.83-1.09) 08/31/19 05:10 Problem List - Problems (1) Hip fracture, right Code(s): S72.001A - FRACTURE OF UNSP PART OF NECK OF RIGHT FEMUR, INIT (2) Hypertension Code(s): I10 - ESSENTIAL (PRIMARY) HYPERTENSION Qualifiers: Hypertension type: essential hypertension Qualified Code(s): I10 - Essential (primary) hypertension Assessment/Plan Current Medications Generic Name Dose Route Start Last Admin Trade Name Freq PRN Reason Stop Dose Admin Acetaminophen 650 mg 09/01/19 13:30 09/09/19 06:45 Tylenol - PO Not Given Q6H [facility] Amlodipine Besylate 5 mg 09/07/19 13:40 09/09/19 10:16 Norvasc - PO 5 mg DAILY [facility] Administration Docusate Sodium 100 mg 09/01/19 22:00 09/09/19 10:03 Colace - PO Not Given BID [facility] Enoxaparin Sodium 40 mg 09/02/19 10:00 09/09/19 10:18 Lovenox - SQ 40 mg DAILY [facility] Administration Potassium Chloride 20 meq/ 1,010 mls @ 55 mls/hr 09/08/19 12:12 09/09/19 06: 14 Dextrose IVPB 55 mls/hr Q18H [facility] Administration Insulin Aspart 1 vial 09/01/19 16:30 09/09/19 11:27 Novolog Vial Sliding Scale - SQ Not Given ACHS [facility] Protocol Insulin Detemir 8 units 09/05/19 07:57 09/09/19 06:13 Levemir Vial SQ 8 units AM [facility] Administration Lorazepam 0.5 mg 09/08/19 14:42 Ativan Injection - IM Q8H PRN [facility] Metoprolol Succinate 12.5 mg 09/07/19 13:45 09/09/19 10:03 Toprol Xl - PO Not Given DAILY [facility] Naloxone HCl 0.4 mg 09/01/19 13:21 Narcan - IVPUSH ONCE PRN Sedation Nystatin 1 applic 09/08/19 10:00 09/09/19 10:18 Nystop Powder - TP 1 applic DAILY [facility] Administration Ondansetron HCl 4 mg 09/01/19 13:21 Zofran Injection IVPUSH ONCE PRN NAUSEA Oxycodone HCl 5 mg 09/08/19 16:31 Roxicodone - PO Q12H PRN PAIN LEVEL 6-10 Quetiapine Fumarate 12.5 mg 09/04/19 12:15 09/09/19 10:18 Seroquel - PO 12.5 mg DAILY [facility] Administration Valsartan 80 mg 09/02/19 10:00 09/09/19 10:16 Diovan - PO 80 mg DAILY [facility] Administration Impression 1. azotemia/dehydration 2. dm 3. hip fracture 4. htn 5. s/p fall 6. UTI 7. hypernatremia Plan - decrease rate of fluids - encourage po intake and d/c fluids once tolerating diet - sodium improving - avoid nsaids - repeat ua once uti clears
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
[2019-09-09] MEDS ORDERED: PT OWN MED DRAWER 7, Y5N ONE (23:43)
[2019-09-10] MEDS: POTASSIUM CHLORIDE 20 MEQ in DEXTROSE 5%-WATER - 1,000 ML IVPB SCH ×2 (00:55→18:45)
[2019-09-10] MEDS: ACETAMINOPHEN 325 MG TABLET (FP) PO SCH ×4 (00:55→18:45)
[2019-09-10] MEDS: INSULIN (LEVEMIR) 100 UNITS/ML UNITS SQ SCH (06:10)
[2019-09-10] MEDS: INSULIN SLIDING SCALE (NOVOLOG) 1 VIAL SQ SCH ×4 (06:10→21:16)
[2019-09-10 06:53] LABS: EOS % 3.8 % (0-4.5); HEMATOCRIT 25.5 % (32.4-45.2); HEMOGLOBIN 8.5 GM/dL (10.7-15.3); LYMPH % 26.5 % (8-40); MCH 27.3 pg (25.7-33.7); MCHC 33.2 g/dl (32.0-36.0); MEAN CELL VOLUME 82.3 fl (80-96); MEAN PLT VOLUME 9.1 fl (7.5-11.1); MONO % 12.3 % (3.8-10.2); NEUT % 56.4 % (42.8-82.8); PLATELET COUNT 349 K/MM3 (134-434); RDW 13.1 % (11.6-15.6); WHITE BLOOD COUNT 6.8 K/mm3 (4.0-10.0)
[2019-09-10 07:17] LABS: BLOOD UREA NITROGEN 17.1 mg/dL (7-18); CALCIUM 8.1 mg/dL (8.5-10.1); CREATININE 0.8 mg/dL (0.55-1.3); POTASSIUM 4.1 mmol/L (3.5-5.1)
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
--- NOTE | 2019-09-10 09:00 | PN ---
Progress Note (short form) - Note Progress Note: No cardiac issues Hemodynamically stable Assessment: 08/31/2019 Severe cLVH normal LVEF 65%, mild MR, AR, tr TR 1. Post fall resulting in right Intra-trochanteric fracture POD#11 post right intra-medullary gamma nail 2. Coronary artery disease with evidence of demand ischemia angina pectoris 3. Probable diastolic left ventricular dysfunction with clinical class 0 [place] [employer] classification left ventricular failure 4. HTN 5. Diabetes Mellitus 6. 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 Urinary tract infection post abx course PLAN: same: 1. Continue Diovan 80 qd 2. Continue Amlodipine 5 qd, Toprol-XL 12.5 qd 3. To initiate physical therapy
[2019-09-10] MEDS: ENOXAPARIN NA (PORCINE) 40 MG/0.4 ML DISP.SYRIN SQ SCH (09:47)
[2019-09-10] MEDS: DOCUSATE SODIUM 100 MG CAPSULE (FP) PO SCH ×2 (09:47→21:16)
[2019-09-10] MEDS: amLODIPine BESYLATE 10 MG TABLET (FP) PO SCH (09:47)
[2019-09-10] MEDS: VALSARTAN 80 MG TABLET (UD) PO SCH (09:47)
[2019-09-10] MEDS: NYSTATIN POWDER 100,000 UNITS/GM - 15 GM TOPICAL POWDER TP SCH (09:48)
[2019-09-10] MEDS: QUEtiapine FUMARATE 25 MG TABLET PO SCH (09:48)
[2019-09-10] MEDS: metoPROLOL SUCCINATE 25 MG TAB.SR.24H (FP) PO SCH (09:48)
--- NOTE | 2019-09-10 10:45 | PN ---
Progress Note (short form) - Note Progress Note: Patient is alert awake but completely disoriented she is in no distress and does not respond to any vocal commands. On the bedside she has a daughter and she did not recognize her daughter at all she does not know her name she does not know anything about her in the hospital and personality or time or whether or anything. But she is alert and awake moving all her extremities all she is saying is thank you thank you thank you very much. Vital Signs Period Temp Pulse Resp BP Sys/Powers Pulse Ox Last 24 Hr 97.4 F-98.6 F 63-83 18-20 126-157/46-85 97 Review of system cannot be done because of alteration in mentation. Patient is comfortable HEENT normal Neck supple no JVD Lungs clear no wheezing Abdomen nontender no organomegaly bowel sounds normal Extremities no edema no cyanosis normal pulses Neurologically he is alert awake But completely confused Skin no rash noted, Wound looks normal CBC, BMP 09/10/19 05:50 09/10/19 05:50 Assessment and plan 88-year-old female with hypertension history of diabetes diverticulosis depression she fell mechanical and had fracture of the right hip which was repair after that she went into delirium. She still is same no change from the previous she continues be confused but no distress no fever afebrile. Ordered CT head with wait for the result she need to start physical therapy for her fracture of the hip but she is unable to do at this time due to complete dementia. And delirium. Discussed with the family in detail that therapy when somebody is delirious and not responding to the command is impossible because Maria Elena risks tomorrow fall. Requested psychiatric evaluation she is also seen by psychiatrist in the beginning. Hypertension diabetes hypokalemia stable continue same medication. Visit type - Emergency Visit Emergency Visit: Yes ED Registration Date: 08/30/19 Care time: The patient presented to the Emergency Department on the above date and was hospitalized for further evaluation of their emergent condition. - New Patient This patient is new to me today: Yes Date on this admission: 09/10/19 - Critical Care Critical Care patient: No - Discharge Referral Referred to [facility] Med P.C.: No
--- NOTE | 2019-09-10 10:49 | PN ---
Progress Note (short form) - Note Progress Note: Ortho Pt seen and examined s/p right IM gamma nail- improving Selected Entries 09/10/19 09:06 Temperature 98.6 F Pulse Rate 76 Respiratory 19 Rate Blood Pressure 130/47 L Laboratory Tests 09/10/19 05:50 WBC 6.8 Hgb 8.5 L Hct 25.5 L Plt Count 349 incisions c/d/i, lexx intact, calf soft, nt nvi a/p PT if able, PWB dvt ppx pain control d/c planning
--- NOTE | 2019-09-10 12:03 | PN ---
Progress Note, Physician History of Present Illness: Pt seen and examined at bedside. She is more awake and alert today. She still has poor po intake. - Current Medication List Current Medications: Active Medications Acetaminophen (Tylenol -) 650 mg PO Q6H [facility] Last Admin: 09/10/19 06:37 Dose: 650 mg Amlodipine Besylate (Norvasc -) 5 mg PO DAILY [facility] Last Admin: 09/10/19 09:47 Dose: 5 mg Docusate Sodium (Colace -) 100 mg PO BID [facility] Last Admin: 09/10/19 09:47 Dose: Not Given Enoxaparin Sodium (Lovenox -) 40 mg SQ DAILY [facility] Last Admin: 09/10/19 09:47 Dose: 40 mg Potassium Chloride 20 meq/ (Dextrose) 1,010 mls @ 55 mls/hr IVPB Q18H [facility] Last Admin: 09/10/19 00:55 Dose: 55 mls/hr Insulin Aspart (Novolog Vial Sliding Scale -) 1 vial SQ ACHS [facility]; Protocol Last Admin: 09/10/19 11:50 Dose: Not Given Insulin Detemir (Levemir Vial) 8 units SQ AM [facility] Last Admin: 09/10/19 06:10 Dose: 8 units Lorazepam (Ativan Injection -) 0.5 mg IM Q12H PRN PRN Reason: AGITATION Metoprolol Succinate (Toprol Xl -) 12.5 mg PO DAILY [facility] Last Admin: 09/10/19 09:48 Dose: Not Given Naloxone HCl (Narcan -) 0.4 mg IVPUSH ONCE PRN PRN Reason: Sedation Nystatin (Nystop Powder -) 1 applic TP DAILY [facility] Last Admin: 09/10/19 09:48 Dose: 1 applic Ondansetron HCl (Zofran Injection) 4 mg IVPUSH ONCE PRN PRN Reason: NAUSEA Oxycodone HCl (Roxicodone -) 5 mg PO Q12H PRN PRN Reason: PAIN LEVEL 6-10 Quetiapine Fumarate (Seroquel -) 12.5 mg PO DAILY [facility] Last Admin: 09/10/19 09:48 Dose: 12.5 mg Valsartan (Diovan -) 80 mg PO DAILY [facility] Last Admin: 09/10/19 09:47 Dose: 80 mg - Objective Vital Signs: Vital Signs Temperature 98.6 F 09/10/19 09:06 Pulse Rate 76 02/28/20 09:06 Respiratory Rate 19 09/10/19 09:06 Blood Pressure 130/47 L 09/10/19 09:06 O2 Sat by Pulse Oximetry (%) 97 09/09/19 21:00 Constitutional: Yes: Calm Eyes: Yes: Conjunctiva Clear HENT: Yes: Atraumatic Cardiovascular: Yes: S1, S2 Respiratory: Yes: CTA Bilaterally Gastrointestinal: Yes: Normal Bowel Sounds, Soft Genitourinary: Yes: Incontinence Edema: No Neurological: Yes: Confusion Labs: CBC, BMP 09/10/19 05:50 09/10/19 05:50 INR, PTT INR 1.08 (0.83-1.09) 08/31/19 05:10 Problem List - Problems (1) Hip fracture, right Code(s): S72.001A - FRACTURE OF UNSP PART OF NECK OF RIGHT FEMUR, INIT (2) Hypertension Code(s): I10 - ESSENTIAL (PRIMARY) HYPERTENSION Qualifiers: Hypertension type: essential hypertension Qualified Code(s): I10 - Essential (primary) hypertension Assessment/Plan Current Medications Generic Name Dose Route Start Last Admin Trade Name Freq PRN Reason Stop Dose Admin Acetaminophen 650 mg 09/01/19 13:30 09/10/19 06:37 Tylenol - PO 650 mg Q6H [facility] Administration Amlodipine Besylate 5 mg 09/07/19 13:40 09/10/19 09:47 Norvasc - PO 5 mg DAILY [facility] Administration Docusate Sodium 100 mg 09/01/19 22:00 09/10/19 09:47 Colace - PO Not Given BID [facility] Enoxaparin Sodium 40 mg 09/02/19 10:00 09/10/19 09:47 Lovenox - SQ 40 mg DAILY [facility] Administration Potassium Chloride 20 meq/ 1,010 mls @ 55 mls/hr 09/08/19 12:12 09/10/19 00: 55 Dextrose IVPB 55 mls/hr Q18H [facility] Administration Insulin Aspart 1 vial 09/01/19 16:30 09/10/19 11:50 Novolog Vial Sliding Scale - SQ Not Given ACHS [facility] Protocol Insulin Detemir 8 units 09/05/19 07:57 09/10/19 06:10 Levemir Vial SQ 8 units AM [facility] Administration Lorazepam 0.5 mg 09/09/19 15:36 Ativan Injection - IM Q12H PRN AGITATION Metoprolol Succinate 12.5 mg 09/07/19 13:45 09/10/19 09:48 Toprol Xl - PO Not Given DAILY [facility] Naloxone HCl 0.4 mg 09/01/19 13:21 Narcan - IVPUSH ONCE PRN Sedation Nystatin 1 applic 09/08/19 10:00 09/10/19 09:48 Nystop Powder - TP 1 applic DAILY [facility] Administration Ondansetron HCl 4 mg 09/01/19 13:21 Zofran Injection IVPUSH ONCE PRN NAUSEA Oxycodone HCl 5 mg 09/08/19 16:31 Roxicodone - PO Q12H PRN PAIN LEVEL 6-10 Quetiapine Fumarate 12.5 mg 09/04/19 12:15 09/10/19 09:48 Seroquel - PO 12.5 mg DAILY [facility] Administration Valsartan 80 mg 09/02/19 10:00 09/10/19 09:47 Diovan - PO 80 mg DAILY [facility] Administration Impression 1. azotemia/dehydration 2. dm 3. hip fracture 4. htn 5. s/p fall 6. UTI 7. hypernatremia 8. CVA Plan - cont fluids as she has poor po intake - avoid nsaids - neuro eval for cva - repeat ua once uti clears - will follow PRN
[2019-09-10] MEDS: ASPIRIN 81 MG CHEWABLE TABLETS PO SCH (15:00)
[2019-09-10] MEDS: LORazepam 2 MG/ML SDV VIAL IM PRN (18:45)
[2019-09-10] MEDS ORDERED: LORazepam 2 MG/ML SDV VIAL IVPUSH ONE (19:42)
[2019-09-10] MEDS: ATORVASTATIN CA 40 MG TABLET (FP) PO SCH ×2 (21:58→22:19)
[2019-09-11] MEDS: ACETAMINOPHEN 325 MG TABLET (FP) PO SCH ×5 (01:07→20:26)
--- NOTE | 2019-09-11 01:51 | PN ---
Progress Note (short form) - Note Progress Note: Was notified by nurse that patient was agitated prior to MRI and would be unable to lie still for MRI. Was given 0.5mg IV Ativan to complete MRI. MRI was taken and report reviewed, preliminary report as below: Impression: 1. Extremely limited study. 2. Large area of acute infarct involving the left parietal/temporal lobes. 3. Mild chronic small vessel ischemic changes. Patient was seen and examined at the bedside. She did not respond to vocal stimuli or commands. PE: General: Lethargic, not responsive to commands. Cardiac: RRR with prominent systolic ejection murmur. Resp: Poor inspiratory effort, no auscultated crackles, wheezes. Neuro: moving all limbs spontaneously. No noted facial droop. Unable to comply with other parts of neuro exam. Aspirin was started by day team. Statin started by night team. Notified Dr. Landrum of results of MRI and of starting aspirin and statin. Noted that all management was up to date and no additional steps to be taken. Echocardiogram already performed, is on telemetry monitoring. Carotid dopplers ordered
[2019-09-11] MEDS: INSULIN SLIDING SCALE (NOVOLOG) 1 VIAL SQ SCH ×4 (06:55→21:19)
[2019-09-11] MEDS: INSULIN (LEVEMIR) 100 UNITS/ML UNITS SQ SCH (07:06)
[2019-09-11] MEDS: QUEtiapine FUMARATE 25 MG TABLET PO SCH (09:39)
[2019-09-11] MEDS: VALSARTAN 80 MG TABLET (UD) PO SCH (09:39)
[2019-09-11] MEDS: metoPROLOL SUCCINATE 25 MG TAB.SR.24H (FP) PO SCH (09:39)
[2019-09-11] MEDS: amLODIPine BESYLATE 10 MG TABLET (FP) PO SCH (09:39)
[2019-09-11] MEDS: ASPIRIN 81 MG CHEWABLE TABLETS PO SCH (09:40)
[2019-09-11] MEDS: DOCUSATE SODIUM 100 MG CAPSULE (FP) PO SCH ×2 (09:40→21:49)
[2019-09-11] MEDS: ENOXAPARIN NA (PORCINE) 40 MG/0.4 ML DISP.SYRIN SQ SCH (09:40)
[2019-09-11] MEDS: NYSTATIN POWDER 100,000 UNITS/GM - 15 GM TOPICAL POWDER TP SCH (09:49)
--- NOTE | 2019-09-11 11:03 | PN ---
Progress Note (short form) - Note Progress Note: Patient is More alert today but still completely confused does not know anything about orientation. She does not recognize her son or daughter. Her MRI shows acute infarct as seen on CAT scan of the head. Vital Signs Period Temp Pulse Resp BP Sys/Powers Pulse Ox Last 24 Hr 97.8 F-98.5 F 65-78 19-20 126-139/48-59 100 Review of system cannot be done because of alteration in mentation. Patient is comfortable HEENT normal Neck supple no JVD Lungs clear no wheezing Abdomen nontender no organomegaly bowel sounds normal Extremities no edema no cyanosis normal pulses Neurologically he is alert awake But completely confused Skin no rash noted, Wound looks normal Laboratory Results - last 24 hr 09/10/19 09/10/19 09/10/19 11:49 17:10 20:56 POC Glucometer 131 97 94 09/11/19 05:51 POC Glucometer 200 MRI of the brain is a showing acute large nonhemorrhagic infarct left parieto- occipital region no evidence of midline shift no hydrocephalus and no end infarct bleeding. Assessment and plan 88-year-old female with hypertension history of diabetes diverticulosis depression she fell mechanical and had fracture of the right hip which was repair after that she went into delirium. She still is same no change from the previous she continues be confused but no distress no fever afebShe is already on aspirin for acute CVA will order carotid sonogram physical therapy continue medication for hyperlipidemia and hypertension and all her other medications discussed with the family that she is going to need rehabilitation in the residential . Visit type - Emergency Visit Emergency Visit: Yes ED Registration Date: 08/30/19 Care time: The patient presented to the Emergency Department on the above date and was hospitalized for further evaluation of their emergent condition. - New Patient This patient is new to me today: Yes Date on this admission: 09/11/19 - Critical Care Critical Care patient: No - Discharge Referral Referred to [facility] Med P.C.: No
--- NOTE | 2019-09-11 13:17 | EKG ---
Test Reason : Blood Pressure : / mmHG Vent. Rate : 066 BPM Atrial Rate : 066 BPM P-R Int : 146 ms QRS Dur : 108 ms QT Int : 422 ms P-R-T Axes : 014 -38 085 degrees QTc Int : 442 ms NORMAL SINUS RHYTHM LEFT AXIS DEVIATION INCOMPLETE RIGHT BUNDLE BRANCH BLOCK LEFT VENTRICULAR HYPERTROPHY WITH REPOLARIZATION ABNORMALITY NONSPECIFIC ST ABNORMALITY ABNORMAL ECG WHEN COMPARED WITH ECG OF 30-AUG-2019 17:47, NO SIGNIFICANT CHANGE WAS FOUND Confirmed by MAHAMED COLLIER MD ([id number] on 09/11/2019 1:17:09 PM Referred By: Bradly SINGH Confirmed By:MAHAMED COLLIER MD
--- NOTE | 2019-09-11 13:17 | PN ---
Progress Note, Physician History of Present Illness: POD#13 Right IT fx post right IM gamma nail, left acute stroke confirmed with brain MRI, more alert, but confused. - Current Medication List Current Medications: Active Medications Acetaminophen (Tylenol -) 650 mg PO Q6H [facility] Last Admin: 09/11/19 12:50 Dose: 650 mg Amlodipine Besylate (Norvasc -) 5 mg PO DAILY [facility] Last Admin: 09/11/19 09:39 Dose: 5 mg Aspirin (Asa -) 81 mg PO DAILY [facility] Last Admin: 09/11/19 09:40 Dose: 81 mg Atorvastatin Calcium (Lipitor -) 40 mg PO HS [facility] Last Admin: 09/10/19 22:19 Dose: Not Given Docusate Sodium (Colace -) 100 mg PO BID [facility] Last Admin: 09/11/19 09:40 Dose: Not Given Enoxaparin Sodium (Lovenox -) 40 mg SQ DAILY [facility] Last Admin: 09/11/19 09:40 Dose: 40 mg Potassium Chloride 20 meq/ (Dextrose) 1,010 mls @ 55 mls/hr IVPB Q18H [facility] Last Admin: 09/10/19 18:45 Dose: 55 mls/hr Insulin Aspart (Novolog Vial Sliding Scale -) 1 vial SQ ACHS [facility]; Protocol Last Admin: 09/11/19 12:08 Dose: Not Given Insulin Detemir (Levemir Vial) 8 units SQ AM [facility] Last Admin: 09/11/19 07:06 Dose: 8 units Lorazepam (Ativan Injection -) 0.5 mg IM Q12H PRN PRN Reason: AGITATION Last Admin: 09/10/19 18:45 Dose: 0.5 mg Metoprolol Tartrate (Lopressor -) 12.5 mg PO DAILY [facility] Naloxone HCl (Narcan -) 0.4 mg IVPUSH ONCE PRN PRN Reason: Sedation Nystatin (Nystop Powder -) 1 applic TP DAILY [facility] Last Admin: 09/11/19 09:49 Dose: 1 applic Ondansetron HCl (Zofran Injection) 4 mg IVPUSH ONCE PRN PRN Reason: NAUSEA Oxycodone HCl (Roxicodone -) 5 mg PO Q12H PRN PRN Reason: PAIN LEVEL 6-10 Quetiapine Fumarate (Seroquel -) 12.5 mg PO DAILY [facility] Last Admin: 09/11/19 09:39 Dose: 12.5 mg Valsartan (Diovan -) 80 mg PO DAILY [facility] Last Admin: 09/11/19 09:39 Dose: 80 mg - Objective Vital Signs: Vital Signs Temperature 97.8 F 09/11/19 06:00 Pulse Rate 65 09/11/19 06:00 Respiratory Rate 09/11/19 06:00 Blood Pressure 138/59 L 09/11/19 06:00 O2 Sat by Pulse Oximetry (%) 100 09/10/19 20:00 Constitutional: Yes: No Distress, Calm Neck: Yes: Supple Cardiovascular: Yes: Regular Rate and Rhythm Respiratory: Yes: Regular, Diminished Gastrointestinal: Yes: Soft, Hypoactive Bowel Sounds Edema: No Labs: CBC, BMP 09/10/19 05:50 09/10/19 05:50 INR, PTT INR 1.08 (0.83-1.09) 08/31/19 05:10 - ....Imaging EKG: Report Reviewed (NSR @ 68 LAD, IRBBB, LVH) Problem List - Problems (1) Acute ischemic left MCA stroke Code(s): I63.512 - CEREB INFRC D/T UNSP OCCLS OR STENOS OF LEFT MID CEREB ART Assessment/Plan Problem List - Problems (1) Diabetes mellitus Code(s): E11.9 - TYPE 2 DIABETES MELLITUS WITHOUT COMPLICATIONS (2) Hip fracture, right Code(s): S72.001A - FRACTURE OF UNSP PART OF NECK OF RIGHT FEMUR, INIT (3) Mitral regurgitation Code(s): I34.0 - NONRHEUMATIC MITRAL (VALVE) INSUFFICIENCY Qualifiers: Cardiac valve disease etiology: nonrheumatic Qualified Code(s): I34.0 - Nonrheumatic mitral (valve) insufficiency (4) Aortic regurgitation Code(s): I35.1 - NONRHEUMATIC AORTIC (VALVE) INSUFFICIENCY Qualifiers: Cardiac valve disease etiology: nonrheumatic Qualified Code(s): I35.1 - Nonrheumatic aortic (valve) insufficiency (5) Hypertension Code(s): I10 - ESSENTIAL (PRIMARY) HYPERTENSION Qualifiers: Hypertension type: essential hypertension Qualified Code(s): I10 - Essential (primary) hypertension Echo (Normal LVEF, mild AR, mild MR, trace TR) Assessment/Plan 09/10/2019 Brain MRI Acute large nonhemorrhagic stroke left parieto-occipital region 08/31/2019 Severe cLVH normal LVEF 65%, mild MR, AR, tr TR 1. Acute nonhemorrhagic left parieto-occipital stroke -> left MCA, M2 branch 2. Post fall resulting in right intra-trochanteric fracture POD#13 post right intra-medullary gamma nail 3. Coronary artery disease with evidence of demand ischemia angina pectoris 4. Probable diastolic left ventricular dysfunction with clinical class 0 [place] [employer] classification left ventricular failure 5. HTN 6. Diabetes Mellitus 7. Dementia with delirium -> acute stroke 8. Urinary tract infection post abx course PLAN: 1. Continue Diovan 80 qd. ASA 81 qd, case monitor r/o PAF, carotid US 2. Continue Amlodipine 5 qd, Toprol-XL 12.5 qd, Lipitor 40 qd for LDL<70 ( current LDL 96) 3. Reorient patient d/w family members
[2019-09-11] MEDS: POTASSIUM CHLORIDE 20 MEQ in DEXTROSE 5%-WATER - 1,000 ML IVPB SCH ×2 (14:54)
[2019-09-11] MEDS: LORazepam 2 MG/ML SDV VIAL IM PRN (16:06)
[2019-09-11] MEDS: ATORVASTATIN CA 40 MG TABLET (FP) PO SCH (21:49)
[2019-09-12] MEDS: ACETAMINOPHEN 325 MG TABLET (FP) PO SCH ×4 (04:23→20:13)
[2019-09-12] MEDS: INSULIN (LEVEMIR) 100 UNITS/ML UNITS SQ SCH (06:31)
[2019-09-12] MEDS: POTASSIUM CHLORIDE 20 MEQ in DEXTROSE 5%-WATER - 1,000 ML IVPB SCH ×2 (06:31→14:39)
[2019-09-12] MEDS: INSULIN SLIDING SCALE (NOVOLOG) 1 VIAL SQ SCH ×4 (06:32→21:05)
[2019-09-12] MEDS: METOPROLOL TARTRATE 25 MG TABLET (FP) PO SCH (10:17)
[2019-09-12] MEDS: VALSARTAN 80 MG TABLET (UD) PO SCH (10:19)
[2019-09-12] MEDS: amLODIPine BESYLATE 10 MG TABLET (FP) PO SCH (10:19)
[2019-09-12] MEDS: QUEtiapine FUMARATE 25 MG TABLET PO SCH (10:19)
[2019-09-12] MEDS: ASPIRIN 81 MG CHEWABLE TABLETS PO SCH (10:19)
[2019-09-12] MEDS: DOCUSATE SODIUM 100 MG CAPSULE (FP) PO SCH ×2 (10:19→22:14)
[2019-09-12] MEDS: NYSTATIN POWDER 100,000 UNITS/GM - 15 GM TOPICAL POWDER TP SCH (10:20)
[2019-09-12] MEDS: ENOXAPARIN NA (PORCINE) 40 MG/0.4 ML DISP.SYRIN SQ SCH (10:20)
--- NOTE | 2019-09-12 12:38 | PN ---
Progress Note, Physician History of Present Illness: POD#14 Right IT fx post right IM gamma nail, left acute stroke confirmed with brain MRI, more alert, but confused. No PAF on monitor yet. - Current Medication List Current Medications: Active Medications Acetaminophen (Tylenol -) 650 mg PO Q6H [facility] Last Admin: 09/12/19 06:32 Dose: 650 mg Amlodipine Besylate (Norvasc -) 5 mg PO DAILY [facility] Last Admin: 09/12/19 10:19 Dose: 5 mg Aspirin (Asa -) 81 mg PO DAILY [facility] Last Admin: 09/12/19 10:19 Dose: 81 mg Atorvastatin Calcium (Lipitor -) 40 mg PO HS [facility] Last Admin: 09/11/19 21:49 Dose: 40 mg Docusate Sodium (Colace -) 100 mg PO BID [facility] Last Admin: 09/12/19 10:19 Dose: Not Given Enoxaparin Sodium (Lovenox -) 40 mg SQ DAILY [facility] Last Admin: 09/12/19 10:20 Dose: 40 mg Potassium Chloride 20 meq/ (Dextrose) 1,010 mls @ 55 mls/hr IVPB Q18H [facility] Last Admin: 09/12/19 06:31 Dose: Not Given Insulin Aspart (Novolog Vial Sliding Scale -) 1 vial SQ ACHS [facility]; Protocol Last Admin: 09/12/19 12:03 Dose: Not Given Insulin Detemir (Levemir Vial) 8 units SQ AM [facility] Last Admin: 09/12/19 06:31 Dose: 8 units Lorazepam (Ativan Injection -) 0.5 mg IM Q12H PRN PRN Reason: AGITATION Last Admin: 09/11/19 16:06 Dose: 0.5 mg Metoprolol Tartrate (Lopressor -) 12.5 mg PO DAILY [facility] Last Admin: 09/12/19 10:17 Dose: 12.5 mg Naloxone HCl (Narcan -) 0.4 mg IVPUSH ONCE PRN PRN Reason: Sedation Nystatin (Nystop Powder -) 1 applic TP DAILY [facility] Last Admin: 09/12/19 10:20 Dose: 1 applic Ondansetron HCl (Zofran Injection) 4 mg IVPUSH ONCE PRN PRN Reason: NAUSEA Quetiapine Fumarate (Seroquel -) 12.5 mg PO DAILY [facility] Last Admin: 09/12/19 10:19 Dose: 12.5 mg Valsartan (Diovan -) 80 mg PO DAILY [facility] Last Admin: 09/12/19 10:19 Dose: 80 mg - Objective Vital Signs: Vital Signs Temperature 98 F 09/12/19 10:00 Pulse Rate 76 09/12/19 10:00 Respiratory Rate 18 09/12/19 10:00 Blood Pressure 137/41 L 09/12/19 10:00 O2 Sat by Pulse Oximetry (%) 100 09/12/19 09:00 Constitutional: Yes: Mild Distress, Thin Neck: Yes: Supple Cardiovascular: Yes: Regular Rate and Rhythm, Varicosities Respiratory: Yes: Diminished Gastrointestinal: Yes: Soft, Hypoactive Bowel Sounds Edema: No Labs: CBC, BMP 09/10/19 05:50 09/10/19 05:50 INR, PTT INR 1.08 (0.83-1.09) 08/31/19 05:10 - ....Imaging EKG: Report Reviewed (Tele: NSR no PAF) Problem List - Problems (1) Acute ischemic left MCA stroke Code(s): I63.512 - CEREB INFRC D/T UNSP OCCLS OR STENOS OF LEFT MID CEREB ART Assessment/Plan Problem List - Problems (1) Diabetes mellitus Code(s): E11.9 - TYPE 2 DIABETES MELLITUS WITHOUT COMPLICATIONS (2) Hip fracture, right Code(s): S72.001A - FRACTURE OF UNSP PART OF NECK OF RIGHT FEMUR, INIT (3) Mitral regurgitation Code(s): I34.0 - NONRHEUMATIC MITRAL (VALVE) INSUFFICIENCY Qualifiers: Cardiac valve disease etiology: nonrheumatic Qualified Code(s): I34.0 - Nonrheumatic mitral (valve) insufficiency (4) Aortic regurgitation Code(s): I35.1 - NONRHEUMATIC AORTIC (VALVE) INSUFFICIENCY Qualifiers: Cardiac valve disease etiology: nonrheumatic Qualified Code(s): I35.1 - Nonrheumatic aortic (valve) insufficiency (5) Hypertension Code(s): I10 - ESSENTIAL (PRIMARY) HYPERTENSION Qualifiers: Hypertension type: essential hypertension Qualified Code(s): I10 - Essential (primary) hypertension Echo (Normal LVEF, mild AR, mild MR, trace TR) Assessment/Plan 09/10/2019 Brain MRI Acute large nonhemorrhagic stroke left parieto-occipital region 08/31/2019 Severe cLVH normal LVEF 65%, mild MR, AR, tr TR 1. Acute nonhemorrhagic left parieto-occipital stroke -> left MCA, M2 branch 2. Post fall resulting in right intra-trochanteric fracture POD#13 post right intra-medullary gamma nail 3. Coronary artery disease with evidence of demand ischemia angina pectoris 4. Probable diastolic left ventricular dysfunction with clinical class 0 [place] [employer] classification left ventricular failure 5. HTN 6. Diabetes Mellitus 7. Dementia with delirium -> acute stroke 8. Urinary tract infection post abx course PLAN: 1. Continue Diovan 80 qd. 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 Continue Amlodipine 5 qd, Toprol-XL 12.5 qd, Lipitor 40 qd for LDL<70 ( current LDL 96) 3. Reorient patient d/w family members
--- NOTE | 2019-09-12 14:37 | PN ---
Progress Note (short form) - Note Progress Note: Patient is More alert today but still completely confused does not know anything about orientation. She does not recognize her son or daughter. Her MRI shows acute infarct as seen on CAT scan of the head. According to Daughter she is little better today Vital Signs Period Temp Pulse Resp BP Sys/Powers Pulse Ox Last 24 Hr 97.8 F-98.5 F 59-76 18-18 133-156/34-68 100-100 Review of system cannot be done because of alteration in mentation. Patient is comfortable HEENT normal Neck supple no JVD Lungs clear no wheezing Abdomen nontender no organomegaly bowel sounds normal Extremities no edema no cyanosis normal pulses Neurologically he is alert awake But completely confused Skin She has skin excoriation on right heel but no ulcer she already have a heel pads CBC, BMP 09/10/19 05:50 09/10/19 05:50 MRI of the brain is a showing acute large nonhemorrhagic infarct left parieto- occipital region no evidence of midline shift no hydrocephalus and no end infarct bleeding. Carotid sonogram results shows impression critical stenosis left carotid arterial system, moderate stenosis of right carotid arterial system Assessment and plan 88-year-old female with hypertension history of diabetes diverticulosis depression she fell mechanical and had fracture of the right hip which was repair after that she went into delirium. She still is same no change from the previous she continues be confused but no distress no fever afebShe is already on aspirin for acute CVA will order carotid sonogram physical therapy continue medication for hyperlipidemia and hypertension and all her other medications discussed with the family that she is going to need rehabilitation in the longterm . Carotid stenosis requested consult by Dr. Bautista for any intervention at this time continue aspirin. For the skin excoriation right heel continue heel pads and watch Visit type - Emergency Visit Emergency Visit: Yes ED Registration Date: 08/30/19 Care time: The patient presented to the Emergency Department on the above date and was hospitalized for further evaluation of their emergent condition. - New Patient This patient is new to me today: No - Critical Care Critical Care patient: No - Discharge Referral Referred to [facility] Med P.C.: No
[2019-09-12] MEDS ORDERED: LORazepam 2 MG/ML SDV VIAL IM PRN (17:29)
[2019-09-12] MEDS: ATORVASTATIN CA 40 MG TABLET (FP) PO SCH (22:13)
[2019-09-13] MEDS: POTASSIUM CHLORIDE 20 MEQ in DEXTROSE 5%-WATER - 1,000 ML IVPB SCH ×3 (00:52→17:50)
[2019-09-13] MEDS: ACETAMINOPHEN 325 MG TABLET (FP) PO SCH ×4 (03:17→21:16)
[2019-09-13] MEDS: INSULIN SLIDING SCALE (NOVOLOG) 1 VIAL SQ SCH ×4 (06:01→23:42)
[2019-09-13] MEDS: INSULIN (LEVEMIR) 100 UNITS/ML UNITS SQ SCH (06:35)
--- NOTE | 2019-09-13 07:21 | PN ---
Physical Exam: SUBJECTIVE: Patient seen and examined hold CTA per per family request deep tissue injury B/L heel OBJECTIVE: Vital Signs Period Temp Pulse Resp BP Sys/Powers Pulse Ox Last 24 Hr 97.8 F-98.1 F 61-82 18-18 105-139/41-60 100-100 GENERAL:awake alert byt lethargic HEAD: NC/AT EYES: Pupils equal, round and reactive to light, extraocular movements intact, EARS, NOSE, THROAT: dry mucous membranes. NECK: Normal range of motion, supple LUNGS: Breath sounds equal, clear to auscultation bilaterally. No wheezes, and no crackles. No accessory muscle use. HEART: Regular rate and rhythm, normal S1 and S2,4/6 systolic murmur all over RUSB , LUSB radiated to neck ABDOMEN: Soft, nontender, not distended, normoactive bowel sounds, UPPER EXTREMITIES: 2+ pulses, warm, well-perfused. hand with erythema as she bite her self LOWER EXTREMITIES: 2+ pulses, warm, well-perfused. No calf tenderness. No adelita pheral edema. right leg S/P gamma Nail IM with stitches , +2 DP, left leg FROM proximal and distal , NEUROLOGICAL: no focal deficit . PSYCHIATRIC: agitated SKIN: Warm, dry, normal turgor, Laboratory Results - last 24 hr 09/12/19 09/12/19 09/12/19 12:01 16:58 21:01 POC Glucometer 178 132 101 09/13/19 05:54 POC Glucometer 163 Active Medications Generic Name Dose Route Start Last Admin Trade Name Freq PRN Reason Stop Dose Admin Acetaminophen 650 mg 09/01/19 13:30 09/13/19 06:35 Tylenol - PO 650 mg Q6H [facility] Administration Amlodipine Besylate 5 mg 09/07/19 13:40 09/12/19 10:19 Norvasc - PO 5 mg DAILY [facility] Administration Aspirin 81 mg 09/10/19 14:30 09/12/19 10:19 Asa - PO 81 mg DAILY [facility] Administration Atorvastatin Calcium 40 mg 09/10/19 22:00 09/12/19 22:13 Lipitor - PO 40 mg HS [facility] Administration Docusate Sodium 100 mg 09/01/19 22:00 09/12/19 22:14 Colace - PO 100 mg BID [facility] Administration Enoxaparin Sodium 40 mg 09/02/19 10:00 09/12/19 10:20 Lovenox - SQ 40 mg DAILY [facility] Administration Potassium Chloride 20 meq/ 1,010 mls @ 55 mls/hr 09/08/19 12:12 09/13/19 00:52 Dextrose IVPB Not Given Q18H [facility] Insulin Aspart 1 vial 09/01/19 16:30 09/13/19 06:01 Novolog Vial Sliding Scale - SQ Not Given ACHS [facility] Protocol Insulin Detemir 8 units 09/05/19 07:57 09/13/19 06:35 Levemir Vial SQ 8 units AM [facility] Administration Lorazepam 0.5 mg 09/12/19 17:29 09/12/19 17:55 Ativan Injection - IM 0.5 mg Q12H PRN Administration AGITATION Metoprolol Tartrate 12.5 mg 09/12/19 10:00 09/12/19 10:17 Lopressor - PO 12.5 mg DAILY [facility] Administration Naloxone HCl 0.4 mg 09/01/19 13:21 Narcan - IVPUSH ONCE PRN Sedation Nystatin 1 applic 09/08/19 10:00 09/12/19 10:20 Nystop Powder - TP 1 applic DAILY [facility] Administration Ondansetron HCl 4 mg 09/01/19 13:21 Zofran Injection IVPUSH ONCE PRN NAUSEA Quetiapine Fumarate 12.5 mg 09/04/19 12:15 09/12/19 10:19 Seroquel - PO 12.5 mg DAILY [facility] Administration Valsartan 80 mg 09/02/19 10:00 09/12/19 10:19 Diovan - PO 80 mg DAILY [facility] Administration CBC, BMP 09/10/19 05:50 09/10/19 05:50 CT of Head completed and showed moderate atrophy and chronic microvascular ischemic disease. 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 On 09/10, ordered repeat CT head [facility] demonstrated recent left M2 branch cerebrovascular accident. Head Ct Aug 15 Impression: Moderate atrophy. Involving the previously visualized acute/subacute infarct in the left posterior temporal and occipital lobe. No gross interval acute infarct is identified. Correlate clinically to determine further evaluation and follow-up. ASSESSMENT/PLAN: This is a 87 year old female with a history of IDDM, HTN, diverticulosis, depression, presented with after fall on her right side found to have right hip fx and elevated trop # Right intertrochanter fx S/P fall S/P IM Gamma nail POD #5 * admit to tele * xray reviewed , head CT negative for acute pathology * pain control iV morphin 2 mg Q 4hr , Oxy 5 and 10 and fentanyl patches * Echo was done in september 2018 wit EF 70 % and mild D chf grade II , Mild and AR , will repeat as more than 6 month * resume diet * dc IV fluids * cont ertapeneim # Acute large left parieto-occipital CVA * Head CT 08/30 showed moderate atrophy, periventricular chronic microvascular ischemic disease, chronic infarcts in right occipital lobe and right external capsule * Head CT 09/10 showed recent infarct of left middle, superior temporal gyri * MRI brain 09/10 showed acute large infarct of left parieto-occipital region, extensive periventricular ischemic changes in both hemispheres * Carotid dopplers showed critical stenosis on left, moderate stenosis on right * Last known well was not able to be determined secondary to patient's delirium, and patient was not a candidate for tPA secondary to recent surgery * Patient's family is refusing neck CTA as they would not want any intervention * Continue aspirin, Lipitor * speech and swallow with mild dysphagia , recommend puree diet * will benifit from [facility] #deep tissue injury b/l heels #pvd #blistering Awaiting vascular. Betadine dressing left heel Heel pads b/l. Pillow under calf both legs. Will follow. xray left heel. 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 # UTI with history f ESBL echoli consult ID switch abx to ertapinim dc Vanco follow cx and sensiticity , wbc elevated today cont to mmonitor cbc daily # Dilirious 2/2 UTI vs surgery vs medication SE , improving * consult psych * QTC 466 * , can Giv Atiavn low dose Q 6 hr as needed for agitation avoid haldol for now as QTC is borderline * started on Seraquel * head of bed elevation , aspiration precautions #fall 2/2 syncope vs dehydration vs mechanical fall vs imbalance gait VS UTI * head CT negative for acute pathology * echo reviewed EF 65 % , LVH , mild MR and TR and AR , normal LV function * bp monitor * PT eval after surgery * will benefit from JOELLEN #Hypertensive , non compliant with her meds * cont valsartan 80 mg qD hold for BP below 100 * decrease norvasc to 5 mg qd hold for sytolic less than 100 * start on Torol XL 12.5 Daily per cardiology #elevated troponin likely demand ischemia , no EKG changes , * trend trop * ACS unlikely; likely demand ischemia * echo reviewed * cardiology consulted #DM , uncontrolled 2/2 non compliant , A1c 13 * last hemoglobin a1c 10.repeat 13 * currently on ISS, add levimer 8 units SQ once * hold oral agents * diabetic diet #depression with suicidal ideation * on zoloft, cont * start seraquel # 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 - New Patient This patient is new to me today: No - Critical Care Critical Care patient: No ATTENDING PHYSICIAN STATEMENT I saw and evaluated the patient. I reviewed the resident's note and discussed the case with the resident. I agree with the resident's findings and plan as documented. SUBJECTIVE: OBJECTIVE: ASSESSMENT AND PLAN:
--- NOTE | 2019-09-13 08:12 | PN ---
Teaching Attending Note Name of Resident: Eduardo Rahman ATTENDING PHYSICIAN STATEMENT I saw and evaluated the patient. I reviewed the resident's note and discussed the case with the resident. I agree with the resident's findings and plan as documented. SUBJECTIVE: Patient appears comfortable. OBJECTIVE: Vital Signs Period Temp Pulse Resp BP Sys/Powers Pulse Ox Last 24 Hr 97.8 F-98.1 F 61-82 18-18 105-139/41-60 100-100 HEART: S1S2, RRR, (+) 3/6 SM LUNGS: Poor effort, clear ABDOMEN: Soft, non-tender, non-distended, normal BS EXTREMITIES: No edema Laboratory Results - last 24 hr 09/12/19 09/12/19 09/12/19 12:01 16:58 21:01 POC Glucometer 178 132 101 09/13/19 05:54 POC Glucometer 163 Current Medications Generic Name Dose Route Start Last Admin Trade Name Freq PRN Reason Stop Dose Admin Acetaminophen 650 mg 09/01/19 13:30 09/13/19 06:35 Tylenol - PO 650 mg Q6H [facility] Administration Amlodipine Besylate 5 mg 09/07/19 13:40 09/12/19 10:19 Norvasc - PO 5 mg DAILY [facility] Administration Aspirin 81 mg 09/10/19 14:30 09/12/19 10:19 Asa - PO 81 mg DAILY [facility] Administration Atorvastatin Calcium 40 mg 09/10/19 22:00 09/12/19 22:13 Lipitor - PO 40 mg HS [facility] Administration Docusate Sodium 100 mg 09/01/19 22:00 09/12/19 22:14 Colace - PO 100 mg BID [facility] Administration Enoxaparin Sodium 40 mg 09/02/19 10:00 09/12/19 10:20 Lovenox - SQ 40 mg DAILY [facility] Administration Potassium Chloride 20 meq/ 1,010 mls @ 55 mls/hr 09/08/19 12:12 09/13/19 00:52 Dextrose IVPB Not Given Q18H [facility] Insulin Aspart 1 vial 09/01/19 16:30 09/13/19 06:01 Novolog Vial Sliding Scale - SQ Not Given ACHS [facility] Protocol Insulin Detemir 8 units 09/05/19 07:57 09/13/19 06:35 Levemir Vial SQ 8 units AM [facility] Administration Lorazepam 0.5 mg 09/12/19 17:29 09/12/19 17:55 Ativan Injection - IM 0.5 mg Q12H PRN Administration AGITATION Metoprolol Tartrate 12.5 mg 09/12/19 10:00 09/12/19 10:17 Lopressor - PO 12.5 mg DAILY [facility] Administration Naloxone HCl 0.4 mg 09/01/19 13:21 Narcan - IVPUSH ONCE PRN Sedation Nystatin 1 applic 09/08/19 10:00 09/12/19 10:20 Nystop Powder - TP 1 applic DAILY [facility] Administration Ondansetron HCl 4 mg 09/01/19 13:21 Zofran Injection IVPUSH ONCE PRN NAUSEA Quetiapine Fumarate 12.5 mg 09/04/19 12:15 09/12/19 10:19 Seroquel - PO 12.5 mg DAILY [facility] Administration Valsartan 80 mg 09/02/19 10:00 09/12/19 10:19 Diovan - PO 80 mg DAILY [facility] Administration ASSESSMENT AND PLAN: This is an 88 year old woman with a history of HTN, type 2 DM, depression who presented to the ED with right hip pain after a fall. 1. Right intertrochanteric femur fracture - s/p right femur IM gamma nail 09/01 2. s/p fall 3. Acute large left parieto-occipital CVA - Head CT 08/30 showed moderate atrophy, periventricular chronic microvascular ischemic disease, chronic infarcts in right occipital lobe and right external capsule - Head CT 09/10 showed recent infarct of left middle, superior temporal gyri - MRI brain 09/10 showed acute large infarct of left parieto-occipital region, extensive periventricular ischemic changes in both hemispheres - Carotid dopplers showed critical stenosis on left, moderate stenosis on right - Last known well was not able to be determined secondary to patient's delirium, and patient was not a candidate for tPA secondary to recent surgery - Patient's family is refusing neck CTA as they would not want any intervention - Continue aspirin, Lipitor 4. Hypernatremia - Improved 5. Hypokalemia - Improved 6. Demand ischemia 7. HTN - Continue Diovan, Norvasc, Lopressor 8. Type 2 DM - Continue Levemir, Novolog sliding scale 9. Depression with delirium - Continue Seroquel, Ativan as needed
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
[2019-09-13] MEDS: METOPROLOL TARTRATE 25 MG TABLET (FP) PO SCH (10:25)
[2019-09-13] MEDS: ASPIRIN 81 MG CHEWABLE TABLETS PO SCH (10:25)
[2019-09-13] MEDS: QUEtiapine FUMARATE 25 MG TABLET PO SCH (10:25)
[2019-09-13] MEDS: DOCUSATE SODIUM 100 MG CAPSULE (FP) PO SCH ×2 (10:26→21:16)
[2019-09-13] MEDS: VALSARTAN 80 MG TABLET (UD) PO SCH (10:26)
[2019-09-13] MEDS: ENOXAPARIN NA (PORCINE) 40 MG/0.4 ML DISP.SYRIN SQ SCH (10:26)
[2019-09-13] MEDS: NYSTATIN POWDER 100,000 UNITS/GM - 15 GM TOPICAL POWDER TP SCH (10:26)
[2019-09-13] MEDS: amLODIPine BESYLATE 10 MG TABLET (FP) PO SCH (10:26)
--- NOTE | 2019-09-13 11:09 | CONSULT ---
Admitting History and Physical - Primary Care Physician PCP: Pro Craig - Admission History of Present Illness: 88-year-old female history of diastolic heart failure, hypertension depression presented to ED after sustaining a mechanical fall with right femoral neck fracture evaluated by orthopedics, underwent surgery, became very confused and combative. MRI- Acute, large Left parietal-occipital infarct. Extensive ischemic changes. Per family, pt with recent ENT evaluation, hearing loss, hearing aid recommended. Pt was able to functionally hear, have a conversation, answer questions. Premorbidly, pt was independent in ADL, verbal Seen in chair, confused, attempting to stand up. Pt did not follow commands. Impaired intelligibilty with jargon, interspersed with intelligible tangential sentences eg "but they are if", precise articulation. r/o Wernickes Aphasia? History Source: Family Member, Medical Record Limitations to Obtaining History: Clinical Condition - Past Medical History Cardiovascular: Yes: HTN Endocrine: Yes: Diabetes Mellitus - Past Surgical History Past Surgical History: Yes: None - Smoking History Smoking history: Never smoked Have you smoked in the past 12 months: No - Alcohol/Substance Use Hx Alcohol Use: No History - Admission Reason For Visit: ELEVATED TROPONIN LEVEL - Diagnostics CT Scan: Report Reviewed (CT of Head completed and showed moderate atrophy and chronic microvascular ischemic disease. 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 external capsul) MRI: Report Reviewed ( MRI- Acute, large Left parietal-occipital infarct. Extensive ischemic changes.) - General Mental Status: Awake and Alert, Anxious (attempting to stand up from chair, grimaces, cries -Pain?), Confused Attention: Distractible, Moderate Impairment Ability to Follow Directions: Poor Head/Neck Control: Good - Hearing Hearing: Impaired Hearing Aide: No Speech Evaluation - Communication Primary Language: [place] Communication: Yes: Aphasia Oral Expression Ability: Yes: Moderate Impairment, Severe Impairment - Speech Production Able to Make Needs Known: Yes: Moderately Impaired, Severely Impaired Intelligibility: Yes: Moderately Impaired - Speech Characteristics Voice Loudness: Normal Voice Pitch: Yes: Normal Voice Phonatory-based Quality: Yes: Normal Speech Pattern: Impaired Speech Clarity: < 25% Nasal Resonance: Normal Articulation: Yes: Precise - Language/Auditory Comprehension Observation: Able to respond to yes/no queries: No, Comprehends Conversational Speech: No (difficult to assess, limited ability) - Language/Verbal Expression Aphasia: Yes: Fluent, Impaired Repetition Able to Respond to Simple Queries: Yes: Moderately Impaired, Severely Impaired Able to Communicate Wants and Needs: Yes: Moderately Impaired, Severely Impaired Functional Communication Status: Yes: Moderately Impaired, Severely Impaired Aware of Errors: No Attempts to Correct Errors: No - Swallow Evaluation/Bedside Assessment Current Nutritional Intake: Dysphagia Pureed, Thin Liquids Oral Secretions: Yes: WFL Facial Symmetry at Rest: Symmetrical Lingual Movement: Symmetric Lingual Speed of Movement: Normal Lingual Movement Strgth Against Opposition: Normal Laryngeal Movement: Able to Palpate Rate of Intake: WFL Bolus Size: WFL Labial Seal: WFL Timing of Swallow: Delayed Coughing/Throat Clear: No (with puree. refused liquid trial) Recommendations - Speech Evaluation, Impression/Plan Impression: Seen in chair, confused, attempting to stand up. Pt did not follow commands. Impaired intelligibility with jargon, interspersed with intelligible tangential sentences eg "but they are if", precise articulation. r/o Wernickes Aphasia? - Disposition Discharge to: Jail Facility - Dysphagia Impressions/Plan Dysphagia Impressions: Mild Impairment, Ongoing Evaluation *Silent aspiration: cannot be R/O at bedside Dysphagia Treatment Plan: Safe Rate, 1/2 tsp. at a time, Elevate HOB during feed - Recommendations Diet Consistency: Dysphagia Pureed Medication Administration: Crushed with applesauce Liquids: Thin Liquids (if cough, congestion, nectar thick liquid and mbs) Supplement: Ensure Pudding
--- NOTE | 2019-09-13 12:14 | PN ---
Progress Note, Physician History of Present Illness: POD#15 Right IT fx post right IM gamma nail, left acute stroke confirmed with brain MRI, more alert, but confused. No PAF on monitor yet. Worsening lethargy earlier this AM, HCT negative for new stroke. - Current Medication List Current Medications: Active Medications Acetaminophen (Tylenol -) 650 mg PO Q6H [facility] Last Admin: 09/13/19 06:35 Dose: 650 mg Amlodipine Besylate (Norvasc -) 5 mg PO DAILY [facility] Last Admin: 09/13/19 10:26 Dose: 5 mg Aspirin (Asa -) 81 mg PO DAILY [facility] Last Admin: 09/13/19 10:25 Dose: 81 mg Atorvastatin Calcium (Lipitor -) 40 mg PO HS [facility] Last Admin: 09/12/19 22:13 Dose: 40 mg Docusate Sodium (Colace -) 100 mg PO BID [facility] Last Admin: 09/13/19 10:26 Dose: Not Given Enoxaparin Sodium (Lovenox -) 40 mg SQ DAILY [facility] Last Admin: 09/13/19 10:26 Dose: 40 mg Potassium Chloride 20 meq/ (Dextrose) 1,010 mls @ 55 mls/hr IVPB Q18H [facility] Last Admin: 09/13/19 11:49 Dose: 55 mls/hr Insulin Aspart (Novolog Vial Sliding Scale -) 1 vial SQ ACHS [facility]; Protocol Last Admin: 09/13/19 11:55 Dose: 4 units Insulin Detemir (Levemir Vial) 8 units SQ AM [facility] Last Admin: 09/13/19 06:35 Dose: 8 units Lorazepam (Ativan Injection -) 0.5 mg IM Q12H PRN PRN Reason: AGITATION Last Admin: 09/12/19 17:55 Dose: 0.5 mg Metoprolol Tartrate (Lopressor -) 12.5 mg PO DAILY [facility] Last Admin: 09/13/19 10:25 Dose: 12.5 mg Naloxone HCl (Narcan -) 0.4 mg IVPUSH ONCE PRN PRN Reason: Sedation Nystatin (Nystop Powder -) 1 applic TP DAILY [facility] Last Admin: 09/13/19 10:26 Dose: 1 applic Ondansetron HCl (Zofran Injection) 4 mg IVPUSH ONCE PRN PRN Reason: NAUSEA Quetiapine Fumarate (Seroquel -) 12.5 mg PO DAILY [facility] Last Admin: 09/13/19 10:25 Dose: 12.5 mg Valsartan (Diovan -) 80 mg PO DAILY [facility] Last Admin: 09/13/19 10:26 Dose: 80 mg - Objective Vital Signs: Vital Signs Temperature 98 F 09/13/19 10:00 Pulse Rate 80 09/13/19 10:00 Respiratory Rate 18 09/13/19 10:00 Blood Pressure 145/55 L 09/13/19 10:00 O2 Sat by Pulse Oximetry (%) 100 09/12/19 20:49 Constitutional: Yes: No Distress, Calm, Thin Neck: Yes: Supple Cardiovascular: Yes: Regular Rate and Rhythm Respiratory: Yes: Regular, Diminished Gastrointestinal: Yes: Soft, Hypoactive Bowel Sounds Edema: No Labs: CBC, BMP 09/10/19 05:50 09/10/19 05:50 INR, PTT INR 1.08 (0.83-1.09) 08/31/19 05:10 - ....Imaging Cat Scan: Report Reviewed (HCT: Previously seen left parieto-occipital stroke w/ o new stroke) EKG: Report Reviewed (Tele: NSR w/o PAF) Problem List - Problems (1) Acute ischemic left MCA stroke Code(s): I63.512 - CEREB INFRC D/T UNSP OCCLS OR STENOS OF LEFT MID CEREB ART (2) Left carotid stenosis Code(s): I65.22 - OCCLUSION AND STENOSIS OF LEFT CAROTID ARTERY Assessment/Plan Problem List - Problems (1) Diabetes mellitus Code(s): E11.9 - TYPE 2 DIABETES MELLITUS WITHOUT COMPLICATIONS (2) Hip fracture, right Code(s): S72.001A - FRACTURE OF UNSP PART OF NECK OF RIGHT FEMUR, INIT (3) Mitral regurgitation Code(s): I34.0 - NONRHEUMATIC MITRAL (VALVE) INSUFFICIENCY Qualifiers: Cardiac valve disease etiology: nonrheumatic Qualified Code(s): I34.0 - Nonrheumatic mitral (valve) insufficiency (4) Aortic regurgitation Code(s): I35.1 - NONRHEUMATIC AORTIC (VALVE) INSUFFICIENCY Qualifiers: Cardiac valve disease etiology: nonrheumatic Qualified Code(s): I35.1 - Nonrheumatic aortic (valve) insufficiency (5) Hypertension Code(s): I10 - ESSENTIAL (PRIMARY) HYPERTENSION Qualifiers: Hypertension type: essential hypertension Qualified Code(s): I10 - Essential (primary) hypertension Echo (Normal LVEF, mild AR, mild MR, trace TR) Assessment/Plan 09/10/2019 Brain MRI Acute large nonhemorrhagic stroke left parieto-occipital region 08/31/2019 Severe cLVH normal LVEF 65%, mild MR, AR, tr TR 1. Acute nonhemorrhagic left parieto-occipital stroke -> left MCA, M2 branch 2. Left critical carotid stenosis 3. Post fall resulting in right intra-trochanteric fracture POD#15 post right intra-medullary gamma nail 4. Coronary artery disease with evidence of demand ischemia angina pectoris 5. Probable diastolic left ventricular dysfunction with clinical class 0 [place] [employer] classification left ventricular failure 6. HTN 7. Diabetes Mellitus 8. Dementia with delirium -> acute stroke 9. Urinary tract infection post abx course PLAN: 1. Continue Diovan 80 qd. ASA 81 qd, quality assurance monitor chassis r/o PAF, family not interested in left carotid intervention so far 2. Continue Amlodipine 5 qd, Toprol-XL 12.5 qd, Lipitor 40 qd for LDL<70 ( current LDL 96) 3. Reorient patient d/w family members 4. Dysphagia diet per S&S
--- NOTE | 2019-09-13 12:22 | RAPID ---
Physical Examination Vital Signs: Vital Signs Temperature 98 F 09/13/19 10:00 Pulse Rate 80 09/13/19 10:00 Respiratory Rate 18 09/13/19 10:00 Blood Pressure 145/55 L 09/13/19 10:00 O2 Sat by Pulse Oximetry (%) 100 09/12/19 20:49 Rapid response called for increased lethargy and unresponsiveness. Pt vitals: 95/50, 58, 99%. Glucose >200 while on D5 bolus Pt not alert or oriented Cardio- RRR, NS1,S2 Resp- CTA b/l Neuro- unable to assess given lethargy Impression: Likely 2/2 seroquel and ativan Plan: Head CT to r/o acute intracranial pathology continue bolus D5W 500 cc then switch to NS holding seroquel and ativan unclear reason pt on naltrexone will leave it to primary teams discretion. primary team notified of recommendations and will f/u. Labs: CBC, BMP 09/10/19 05:50 09/10/19 05:50
--- NOTE | 2019-09-13 15:15 | PN ---
Progress Note, Physician History of Present Illness: Pt seen and examined at bedside. She had a rapid response called earlier for being unresponsive. She is now awake and combative. - Current Medication List Current Medications: Active Medications Acetaminophen (Tylenol -) 650 mg PO Q6H [facility] Last Admin: 09/13/19 14:31 Dose: Not Given Amlodipine Besylate (Norvasc -) 5 mg PO DAILY [facility] Last Admin: 09/13/19 10:26 Dose: 5 mg Aspirin (Asa -) 81 mg PO DAILY [facility] Last Admin: 09/13/19 10:25 Dose: 81 mg Atorvastatin Calcium (Lipitor -) 40 mg PO HS [facility] Last Admin: 09/12/19 22:13 Dose: 40 mg Docusate Sodium (Colace -) 100 mg PO BID [facility] Last Admin: 09/13/19 10:26 Dose: Not Given Enoxaparin Sodium (Lovenox -) 40 mg SQ DAILY [facility] Last Admin: 09/13/19 10:26 Dose: 40 mg Potassium Chloride 20 meq/ (Dextrose) 1,010 mls @ 55 mls/hr IVPB Q18H [facility] Last Admin: 09/13/19 11:49 Dose: 55 mls/hr Insulin Aspart (Novolog Vial Sliding Scale -) 1 vial SQ ACHS [facility]; Protocol Last Admin: 09/13/19 11:55 Dose: 4 units Insulin Detemir (Levemir Vial) 8 units SQ AM [facility] Last Admin: 09/13/19 06:35 Dose: 8 units Metoprolol Tartrate (Lopressor -) 12.5 mg PO DAILY [facility] Last Admin: 09/13/19 10:25 Dose: 12.5 mg Naloxone HCl (Narcan -) 0.4 mg IVPUSH ONCE PRN PRN Reason: Sedation Nystatin (Nystop Powder -) 1 applic TP DAILY [facility] Last Admin: 09/13/19 10:26 Dose: 1 applic Ondansetron HCl (Zofran Injection) 4 mg IVPUSH ONCE PRN PRN Reason: NAUSEA Quetiapine Fumarate (Seroquel -) 12.5 mg PO DAILY [facility] Last Admin: 09/13/19 10:25 Dose: 12.5 mg Valsartan (Diovan -) 80 mg PO DAILY [facility] Last Admin: 09/13/19 10:26 Dose: 80 mg - Objective Vital Signs: Vital Signs Temperature 97.8 F 09/13/19 14:07 Pulse Rate 62 09/13/19 14:07 Respiratory Rate 18 09/13/19 14:07 Blood Pressure 117/52 L 09/13/19 14:07 O2 Sat by Pulse Oximetry (%) 100 09/13/19 09:00 Constitutional: Yes: Mild Distress HENT: Yes: Atraumatic Neck: Yes: Supple Cardiovascular: Yes: S1, S2 Respiratory: Yes: CTA Bilaterally Gastrointestinal: Yes: Soft Genitourinary: Yes: Incontinence Musculoskeletal: Yes: WNL Edema: No Neurological: Yes: Confusion Psychiatric: Yes: Agitated Labs: CBC, BMP 09/10/19 05:50 09/10/19 05:50 INR, PTT INR 1.08 (0.83-1.09) 08/31/19 05:10 Problem List - Problems (1) Hip fracture, right Code(s): S72.001A - FRACTURE OF UNSP PART OF NECK OF RIGHT FEMUR, INIT (2) Hypertension Code(s): I10 - ESSENTIAL (PRIMARY) HYPERTENSION Qualifiers: Hypertension type: essential hypertension Qualified Code(s): I10 - Essential (primary) hypertension Assessment/Plan Current Medications Generic Name Dose Route Start Last Admin Trade Name Freq PRN Reason Stop Dose Admin Acetaminophen 650 mg 09/01/19 13:30 09/13/19 14:31 Tylenol - PO Not Given Q6H [facility] Amlodipine Besylate 5 mg 09/07/19 13:40 09/13/19 10:26 Norvasc - PO 5 mg DAILY [facility] Administration Aspirin 81 mg 09/10/19 14:30 09/13/19 10:25 Asa - PO 81 mg DAILY [facility] Administration Atorvastatin Calcium 40 mg 09/10/19 22:00 09/12/19 22:13 Lipitor - PO 40 mg HS [facility] Administration Docusate Sodium 100 mg 09/01/19 22:00 09/13/19 10:26 Colace - PO Not Given BID [facility] Enoxaparin Sodium 40 mg 09/02/19 10:00 09/13/19 10:26 Lovenox - SQ 40 mg DAILY [facility] Administration Potassium Chloride 20 meq/ 1,010 mls @ 55 mls/hr 09/08/19 12:12 09/13/19 11: 49 Dextrose IVPB 55 mls/hr Q18H [facility] Administration Insulin Aspart 1 vial 09/01/19 16:30 09/13/19 11:55 Novolog Vial Sliding Scale - SQ 4 units ACHS [facility] Administration Protocol Insulin Detemir 8 units 09/05/19 07:57 09/13/19 06:35 Levemir Vial SQ 8 units AM [facility] Administration Metoprolol Tartrate 12.5 mg 09/12/19 10:00 09/13/19 10:25 Lopressor - PO 12.5 mg DAILY [facility] Administration Naloxone HCl 0.4 mg 09/01/19 13:21 Narcan - IVPUSH ONCE PRN Sedation Nystatin 1 applic 09/08/19 10:00 09/13/19 10:26 Nystop Powder - TP 1 applic DAILY [facility] Administration Ondansetron HCl 4 mg 09/01/19 13:21 Zofran Injection IVPUSH ONCE PRN [facility] Quetiapine Fumarate 12.5 mg 09/04/19 12:15 09/13/19 10:25 Seroquel - PO 12.5 mg DAILY [facility] Administration Valsartan 80 mg 09/02/19 10:00 09/13/19 10:26 Diovan - PO 80 mg DAILY [facility] Administration Impression 1. azotemia/dehydration 2. dm 3. hip fracture 4. htn 5. s/p fall 6. UTI 7. hypernatremia 8. CVA Plan - check cmp - encourage po intake - follow ct head results - discussed with family - repeat ua if she allows
--- NOTE | 2019-09-13 17:13 | CONSULT ---
Consult Consult Specialty:: Podiatry Reason for Consultation:: Deep tissue injury b/l heels left worse than right - History of Present Illness Chief Complaint: Wounds b/l heels - Past Medical History Cardio/Vascular: Yes: HTN Endocrine: Yes: Diabetes Mellitus - Past Surgical History Past Surgical History: Yes: None - Alcohol/Substance Use Hx Alcohol Use: No - Smoking History Smoking history: Never smoked Have you smoked in the past 12 months: No - Social History Usual Living Arrangement: With Significant Other Home Medications - Allergies Allergies/Adverse Reactions: Allergies Allergy/AdvReac Type Severity Reaction Status Date / Time No Known Allergies Allergy Verified 08/30/19 12:37 - Home Medications Home Medications: Ambulatory Orders Amlodipine Besylate 10 mg PO DAILY #30 tablet 09/29/18 Aspirin Coated [Ecotrin -] 81 mg PO DAILY #30 tablet.ec 09/29/18 Metformin HCl [Glucophage] 500 mg PO BID #60 tablet 09/29/18 Miscellaneous Medical Supply [Glucometer Test Strips #100] 1 each .ROUTE ACHS # 1 box 09/29/18 Nitrofurantoin Monohyd/M-Cryst [Macrobid -] 100 mg PO BID #14 capsule 09/29/18 Olmesartan Medoxomil 40 mg PO DAILY #30 tablet 09/29/18 Sertraline HCl 25 mg PO DAILY #30 tablet 09/29/18 Valsartan 80 mg PO DAILY 08/30/19 Physical Exam Vital Signs: Vital Signs Temperature 97.8 F 09/13/19 14:07 Pulse Rate 62 09/13/19 14:07 Respiratory Rate 18 09/13/19 14:07 Blood Pressure 117/52 L 09/13/19 14:07 O2 Sat by Pulse Oximetry (%) 100 09/13/19 09:00 Extremities: Yes: Other (+dti b/l heels left worse than right, +necrosis centrally of dti left, -cellulitis, +blistering b/l heels, +pvd) Labs: CBC, BMP 09/10/19 05:50 09/10/19 05:50 Assessment/Plan deep tissue injury b/l heels pvd blistering Awaiting vascular. Betadine dressing left heel Heel pads b/l. Pillow under calf both legs. Will follow. xray left heel.
--- NOTE | 2019-09-13 18:12 | CONSULT ---
Consult Consult Specialty:: Vascular Surgery - History of Present Illness History of Present Illness: 88 year old woman admitted with hip fracture who suffered a left occipital- parietal stroke after ORIF surgery. Subsequent carotid Duplex showed left carotid stenosis >70%. She had no prior history of stroke. Prior to this hospitalization she was living with daughter and ambulating with walker. - History Source History Provided By: Family Member, Medical Record Limitations to Obtaining History: Dementia - Past Medical History Cardio/Vascular: Yes: HTN Endocrine: Yes: Diabetes Mellitus - Past Surgical History Past Surgical History: Yes: None - Alcohol/Substance Use Hx Alcohol Use: No - Smoking History Smoking history: Never smoked Have you smoked in the past 12 months: No - Social History Usual Living Arrangement: With Significant Other Home Medications - Allergies Allergies/Adverse Reactions: Allergies Allergy/AdvReac Type Severity Reaction Status Date / Time No Known Allergies Allergy Verified 08/30/19 12:37 - Home Medications Home Medications: Ambulatory Orders Amlodipine Besylate 10 mg PO DAILY #30 tablet 09/29/18 Aspirin Coated [Ecotrin -] 81 mg PO DAILY #30 tablet.ec 09/29/18 Metformin HCl [Glucophage] 500 mg PO BID #60 tablet 09/29/18 Miscellaneous Medical Supply [Glucometer Test Strips #100] 1 each .ROUTE ACHS # 1 box 09/29/18 Nitrofurantoin Monohyd/M-Cryst [Macrobid -] 100 mg PO BID #14 capsule 09/29/18 Olmesartan Medoxomil 40 mg PO DAILY #30 tablet 09/29/18 Sertraline HCl 25 mg PO DAILY #30 tablet 09/29/18 Valsartan 80 mg PO DAILY 08/30/19 Physical Exam Vital Signs: Vital Signs Temperature 97.8 F 09/13/19 14:07 Pulse Rate 62 09/13/19 14:07 Respiratory Rate 18 09/13/19 14:07 Blood Pressure 117/52 L 09/13/19 14:07 O2 Sat by Pulse Oximetry (%) 100 09/13/19 09:00 Constitutional: Yes: Mild Distress Eyes: Yes: EOM Intact Neck: Yes: WNL Cardiovascular: Yes: Regular Rate and Rhythm Respiratory: Yes: Regular Gastrointestinal: Yes: Soft Neurological: Yes: Other (unable to follow commands) Labs: CBC, BMP 09/10/19 05:50 09/10/19 05:50 Imaging - Results Cat Scan: Image Reviewed Ultrasound: Image Reviewed Problem List - Problems (1) Carotid stenosis with cerebral infarction less than 8 weeks ago Assessment/Plan: Left carotid severe stenosis with new left cerebral/occipital stroke. Currently , she is not a candidate for intervention due to dementia and recent CVA. If she recovers from her current dementia and attains a reasonable quality of life , reevaluation for carotid endarterectomy or stenting might be appropriate. I discussed this with her daughter. Code(s): [id number] -
[2019-09-13] MEDS: ATORVASTATIN CA 40 MG TABLET (FP) PO SCH (21:16)
[2019-09-14] MEDS: ACETAMINOPHEN 325 MG TABLET (FP) PO SCH ×4 (02:03→18:44)
[2019-09-14] MEDS ORDERED: PT OWN MED DRAWER 7, Y5N ONE (04:26)
[2019-09-14] MEDS: INSULIN SLIDING SCALE (NOVOLOG) 1 VIAL SQ SCH ×4 (06:01→21:54)
--- NOTE | 2019-09-14 06:12 | PN ---
Physical Exam: SUBJECTIVE: Patient seen and examined still confused hold all hypnotics monitor lytes family refuse CTA as pt is not candiate for surgery OBJECTIVE: Vital Signs Period Temp Pulse Resp BP Sys/Powers Pulse Ox Last 24 Hr 97.3 F-98.0 F 56-108 17-20 96-145/41-93 100-100 GENERAL:awake alert byt lethargic HEAD: NC/AT EYES: Pupils equal, round and reactive to light, extraocular movements intact, EARS, NOSE, THROAT: dry mucous membranes. NECK: Normal range of motion, supple LUNGS: Breath sounds equal, clear to auscultation bilaterally. No wheezes, and no crackles. No accessory muscle use. HEART: Regular rate and rhythm, normal S1 and S2,4/6 systolic murmur all over RUSB , LUSB radiated to neck ABDOMEN: Soft, nontender, not distended, normoactive bowel sounds, UPPER EXTREMITIES: 2+ pulses, warm, well-perfused. hand with erythema as she bite her self LOWER EXTREMITIES: 2+ pulses, warm, well-perfused. No calf tenderness. No peripheral edema. right leg S/P gamma Nail IM with stitches , +2 DP, left leg FROM proximal and distal , B/L deep tissue injury NEUROLOGICAL: no focal deficit . PSYCHIATRIC: agitated SKIN: Warm, dry, normal turgor, Laboratory Results - last 24 hr 09/13/19 09/13/19 09/13/19 11:51 17:17 22:56 POC Glucometer 226 128 134 09/14/19 05:46 POC Glucometer 190 Active Medications Generic Name Dose Route Start Last Admin Trade Name Travis PRN Reason Stop Dose Admin Acetaminophen 650 mg 09/01/19 13:30 09/14/19 02:03 Tylenol - PO Not Given Q6H EPHRAIM Amlodipine Besylate 5 mg 09/07/19 13:40 09/13/19 10:26 Norvasc - PO 5 mg DAILY E[facility]IM Administration Aspirin 81 mg 09/10/19 14:30 09/13/19 10:25 Asa - PO 81 mg DAILY E[facility]RAIM Administration Atorvastatin Calcium 40 mg 09/10/19 22:00 09/13/19 21:16 Lipitor - PO Not Given HS E[facility]RAIM Docusate Sodium 100 mg 09/01/19 22:00 09/13/19 21:16 Colace - PO Not Given BID E[facility] Enoxaparin Sodium 40 mg 09/02/19 10:00 09/13/19 10:26 Lovenox - SQ 40 mg DAILY E[facility]IM Administration Potassium Chloride 20 meq/ 1,010 mls @ 55 mls/hr 09/08/19 12:12 09/13/19 17: 50 Dextrose IVPB Not Given Q18H [facility] Insulin Aspart 1 vial 09/01/19 16:30 09/14/19 06:01 Novolog Vial Sliding Scale - SQ Not Given ACHS [facility] Protocol Insulin Detemir 8 units 09/05/19 07:57 09/13/19 06:35 Levemir Vial SQ 8 units AM [facility] Administration Metoprolol Tartrate 12.5 mg 09/12/19 10:00 09/13/19 10:25 Lopressor - PO 12.5 mg DAILY [facility] Administration Naloxone HCl 0.4 mg 09/01/19 13:21 Narcan - IVPUSH ONCE PRN Sedation Nystatin 1 applic 09/08/19 10:00 09/13/19 10:26 Nystop Powder - TP 1 applic DAILY [facility] Administration Ondansetron HCl 4 mg 09/01/19 13:21 Zofran Injection IVPUSH ONCE PRN NAUSEA Quetiapine Fumarate 12.5 mg 09/04/19 12:15 09/13/19 10:25 Seroquel - PO 12.5 mg DAILY E[facility] Administration Valsartan 80 mg 09/02/19 10:00 09/13/19 10:26 Diovan - PO 80 mg DAILY EPHRAIM Administration CT of Head completed and showed moderate atrophy and chronic microvascular ischemic disease. 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 On 09/10, ordered repeat CT head [facility] demonstrated recent left M2 branch cerebrovascular accident. Head Ct Aug 15 Impression: Moderate atrophy. Involving the previously visualized acute/ subacute infarct in the left posterior temporal and occipital lobe. No gross interval acute infarct is identified. Correlate clinically to determine further evaluation and follow-up. ASSESSMENT/PLAN: This is a 87 year old female with a history of IDDM, HTN, diverticulosis, depression, presented with after fall on her right side found to have right hip fx and elevated trop # Right intertrochanter fx S/P fall S/P IM Gamma nail POD #5 * admit to tele * xray reviewed , head CT negative for acute pathology * pain control iV morphin 2 mg Q 4hr , Oxy 5 and 10 and fentanyl patches * Echo was done in september 2018 wit EF 70 % and mild D chf grade II , Mild and AR , will repeat as more than 6 month * resume diet * dc IV fluids * cont ertapeneim # Acute large left parieto-occipital CVA * Head CT 08/30 showed moderate atrophy, periventricular chronic microvascular ischemic disease, chronic infarcts in right occipital lobe and right external capsule * Head CT 09/10 showed recent infarct of left middle, superior temporal gyri * MRI brain 09/10 showed acute large infarct of left parieto-occipital region, extensive periventricular ischemic changes in both hemispheres * Carotid dopplers showed critical stenosis on left, moderate stenosis on right * Last known well was not able to be determined secondary to patient's delirium , and patient was not a candidate for tPA secondary to recent surgery * Patient's family is refusing neck CTA as they would not want any intervention * Continue aspirin, Lipitor * speech and swallow with mild dysphagia , recommend puree diet * will benifit from [facility] rehab #deep tissue injury b/l heels #pvd #blistering Awaiting vascular. Betadine dressing left heel Heel pads b/l. Pillow under calf both legs. Will follow. xray left heel. per explosive specialist # UTI with history f ESBL echoli consult ID switch abx to ertapinim dc Vanco follow cx and sensiticity , wbc elevated today cont to mmonitor cbc daily # Dilirious 2/2 UTI vs surgery vs medication SE , improving * consult psych * QTC 466 * , can Giv Atiavn low dose Q 6 hr as needed for agitation avoid haldol for now as QTC is borderline * started on Seraquel * head of bed elevation , aspiration precautions #fall 2/2 syncope vs dehydration vs mechanical fall vs imbalance gait VS UTI * head CT negative for acute pathology * echo reviewed EF 65 % , LVH , mild MR and TR and AR , normal LV function * bp monitor * PT eval after surgery * will benefit from JOELLEN #Hypertensive , non compliant with her meds * cont valsartan 80 mg qD hold for BP below 100 * decrease norvasc to 5 mg qd hold for sytolic less than 100 * start on Torol XL 12.5 Daily per cardiology #elevated troponin likely demand ischemia , no EKG changes , * trend trop * ACS unlikely; likely demand ischemia * echo reviewed * cardiology consulted #DM , uncontrolled 2/2 non compliant , A1c 13 * last hemoglobin a1c 10.repeat 13 * currently on ISS, add levimer 8 units SQ once * hold oral agents * diabetic diet #depression with suicidal ideation * on zoloft, cont * start seraquel # 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 - New Patient This patient is new to me today: No - Critical Care Critical Care patient: No ATTENDING PHYSICIAN STATEMENT I saw and evaluated the patient. I reviewed the resident's note and discussed the case with the resident. I agree with the resident's findings and plan as documented. SUBJECTIVE: OBJECTIVE: ASSESSMENT AND PLAN:
[2019-09-14] MEDS: INSULIN (LEVEMIR) 100 UNITS/ML UNITS SQ SCH (06:14)
[2019-09-14 06:38] LABS: BASO % 0.7 % (0-2.0); EOS % 1.5 % (0-4.5); HEMATOCRIT 30.2 % (32.4-45.2); HEMOGLOBIN 9.9 GM/dL (10.7-15.3); LYMPH % 20.6 % (8-40); MCH 27.3 pg (25.7-33.7); MCHC 32.9 g/dl (32.0-36.0); MEAN CELL VOLUME 82.9 fl (80-96); MEAN PLT VOLUME 9.3 fl (7.5-11.1); MONO % 10.5 % (3.8-10.2); NEUT % 66.7 % (42.8-82.8); PLATELET COUNT 458 K/MM3 (134-434); RBC 3.65 M/mm3 (3.60-5.2); RDW 13.9 % (11.6-15.6); WHITE BLOOD COUNT 10.7 K/mm3 (4.0-10.0)
[2019-09-14 07:15] LABS: ALBUMIN 2.6 g/dl (3.4-5.0); BILIRUBIN,TOTAL 0.9 mg/dL (0.2-1); BLOOD UREA NITROGEN 9.4 mg/dL (7-18); CALCIUM 8.8 mg/dL (8.5-10.1); CREATININE 0.9 mg/dL (0.55-1.3); MAGNESIUM 1.8 mg/dL (1.8-2.4); PHOSPHOROUS 3.2 mg/dL (2.5-4.9); TOT PROT 6.4 g/dl (6.4-8.2)
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
[2019-09-14] MEDS: ENOXAPARIN NA (PORCINE) 40 MG/0.4 ML DISP.SYRIN SQ SCH (09:29)
[2019-09-14] MEDS: ASPIRIN 81 MG CHEWABLE TABLETS PO SCH (10:05)
[2019-09-14] MEDS: METOPROLOL TARTRATE 25 MG TABLET (FP) PO SCH (10:05)
[2019-09-14] MEDS: amLODIPine BESYLATE 10 MG TABLET (FP) PO SCH (10:05)
[2019-09-14] MEDS: DOCUSATE SODIUM 100 MG CAPSULE (FP) PO SCH ×2 (10:06→21:26)
[2019-09-14] MEDS: NYSTATIN POWDER 100,000 UNITS/GM - 15 GM TOPICAL POWDER TP SCH (10:06)
[2019-09-14] MEDS: VALSARTAN 80 MG TABLET (UD) PO SCH (10:06)
--- NOTE | 2019-09-14 11:20 | PN ---
Progress Note, Physician Chief Complaint: Not in distress Previous records reviewed History of Present Illness: Patient was seen and examined. Awake but confused. Chart was reviewed Does not appear to be having chest pain or shortness of breath - Current Medication List Current Medications: Active Medications Acetaminophen (Tylenol -) 650 mg PO Q6H [facility] Last Admin: 09/14/19 06:29 Dose: Not Given Amlodipine Besylate (Norvasc -) 5 mg PO DAILY [facility] Last Admin: 09/14/19 10:05 Dose: 5 mg Aspirin (Asa -) 81 mg PO DAILY [facility] Last Admin: 09/14/19 10:05 Dose: 81 mg Atorvastatin Calcium (Lipitor -) 40 mg PO HS [facility] Last Admin: 09/13/19 21:16 Dose: Not Given Docusate Sodium (Colace -) 100 mg PO BID [facility] Last Admin: 09/14/19 10:06 Dose: Not Given Enoxaparin Sodium (Lovenox -) 40 mg SQ DAILY [facility] Last Admin: 09/14/19 09:29 Dose: 40 mg Potassium Chloride 20 meq/ (Dextrose) 1,010 mls @ 55 mls/hr IVPB Q18H [facility] Last Admin: 09/13/19 17:50 Dose: Not Given Insulin Aspart (Novolog Vial Sliding Scale -) 1 vial SQ ACHS [facility]; Protocol Last Admin: 09/14/19 11:04 Dose: Not Given Insulin Detemir (Levemir Vial) 8 units SQ AM [facility] Last Admin: 09/14/19 06:14 Dose: 8 units Metoprolol Tartrate (Lopressor -) 12.5 mg PO DAILY [facility] Last Admin: 09/14/19 10:05 Dose: 12.5 mg Naloxone HCl (Narcan -) 0.4 mg IVPUSH ONCE PRN PRN Reason: Sedation Nystatin (Nystop Powder -) 1 applic TP DAILY [facility] Last Admin: 09/14/19 10:06 Dose: 1 applic Ondansetron HCl (Zofran Injection) 4 mg IVPUSH ONCE PRN PRN Reason: NAUSEA Quetiapine Fumarate (Seroquel -) 12.5 mg PO DAILY [facility] Last Admin: 09/13/19 10:25 Dose: 12.5 mg Valsartan (Diovan -) 80 mg PO DAILY [facility] Last Admin: 09/14/19 10:06 Dose: 80 mg - Objective Vital Signs: Vital Signs Temperature 99.1 F 09/14/19 10:00 Pulse Rate 91 H 09/14/19 10:00 Respiratory Rate 20 09/14/19 10:00 Blood Pressure 143/69 09/14/19 10:00 O2 Sat by Pulse Oximetry (%) 100 09/13/19 21:00 Neck: Yes: Supple Cardiovascular: Yes: Regular Rate and Rhythm, S1, S2 Respiratory: Yes: Diminished Gastrointestinal: Yes: Normal Bowel Sounds, Soft. No: Tenderness Edema: No Labs: CBC, BMP 09/14/19 05:45 09/14/19 05:45 Problem List - Problems (1) Diabetes mellitus Code(s): E11.9 - TYPE 2 DIABETES MELLITUS WITHOUT COMPLICATIONS (2) Hip fracture, right Code(s): S72.001A - FRACTURE OF UNSP PART OF NECK OF RIGHT FEMUR, INIT (3) Mitral regurgitation Code(s): I34.0 - NONRHEUMATIC MITRAL (VALVE) INSUFFICIENCY Qualifiers: Cardiac valve disease etiology: nonrheumatic Qualified Code(s): I34.0 - Nonrheumatic mitral (valve) insufficiency (4) Aortic regurgitation Code(s): I35.1 - NONRHEUMATIC AORTIC (VALVE) INSUFFICIENCY Qualifiers: Cardiac valve disease etiology: nonrheumatic Qualified Code(s): I35.1 - Nonrheumatic aortic (valve) insufficiency (5) Hypertension Code(s): I10 - ESSENTIAL (PRIMARY) HYPERTENSION Qualifiers: Hypertension type: essential hypertension Qualified Code(s): I10 - Essential (primary) hypertension Assessment/Plan 1. Acute non-hemorrhagic left parietal-occipital stroke - left MCA (M2 branch) 2. Left critical carotid stenosis 3. Post fall resulting in right intra-trochanteric fracture POD#16 post right intra-medullary gamma nail 4. Coronary artery disease with evidence of demand ischemia, angina pectoris 5. Probable diastolic left ventricular dysfunction with clinical class 0 [place] [employer] classification left ventricular failure 6. HTN 7. Diabetes Mellitus 8. Dementia with delirium 9. Urinary tract infection post antibiotic course PLAN: 1. Continue night monitor r/o PAF 2. Vascular surgery input noted 3. Continue Amlodipine 5 mg QD, Toprol-XL 12.5 mg QD, Lipitor 40 mg QHS, Diovan 80 mg QD and ASA 81 mg QD Supportive care Shyam Paris MD
--- NOTE | 2019-09-14 11:37 | PN ---
Progress Note, [employer]CH[employer] - Note Progress Note: Selected Entries 09/13/19 09/13/19 09/13/19 05:43 10:00 14:07 Breakfast 25% Supper Temperature 98.1 F 98 F 97.8 F 09/13/19 09/13/19 09/14/19 18:00 22:00 02:04 Breakfast Supper 0 Temperature 98.0 F 97.3 F L 98.0 F 09/14/19 09/14/19 10:00 11:23 Breakfast 0 Supper Temperature 99.1 F Laboratory Tests 09/10/19 09/14/19 05:50 05:45 WBC 6.8 10.7 H Pt seen bedside, alert today, fluent speech, intelligible phrases that are tangential and not related to communicative intent, with jargon. Poor comprehension, not responsding to y/n questions or simple questions/ Smiling, engaging, improving social speech. Overall much improved as compared to yesterday. Swallow reassessed- difficulty recognizing cup/spoon, and does not open mouth to accept po from spoon. With cup places to her lips, pt did accept 6-7 sips of glucerna. Swallow is brisk, without signs of aspiration with single sips. 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 Pt was Independent in ADL premorbidly REC: Consider [facility] Encourage Glucerna, Magic cup, Ensure pudding
[2019-09-14] MEDS: POTASSIUM CHLORIDE 20 MEQ in DEXTROSE 5%-WATER - 1,000 ML IVPB SCH (13:00)
--- NOTE | 2019-09-14 15:21 | PN ---
Progress Note, Physician History of Present Illness: Pt seen and examined at bedside. She is more awake today but remains confused. - Current Medication List Current Medications: Active Medications Acetaminophen (Tylenol -) 650 mg PO Q6H [facility] Last Admin: 09/14/19 13:01 Dose: 650 mg Amlodipine Besylate (Norvasc -) 5 mg PO DAILY [facility] Last Admin: 09/14/19 10:05 Dose: 5 mg Aspirin (Asa -) 81 mg PO DAILY [facility] Last Admin: 09/14/19 10:05 Dose: 81 mg Atorvastatin Calcium (Lipitor -) 40 mg PO HS [facility] Last Admin: 09/13/19 21:16 Dose: Not Given Docusate Sodium (Colace -) 100 mg PO BID [facility] Last Admin: 09/14/19 10:06 Dose: Not Given Enoxaparin Sodium (Lovenox -) 40 mg SQ DAILY [facility] Last Admin: 09/14/19 09:29 Dose: 40 mg Potassium Chloride 20 meq/ (Dextrose) 1,010 mls @ 55 mls/hr IVPB Q18H [facility] Last Admin: 09/14/19 13:00 Dose: Not Given Insulin Aspart (Novolog Vial Sliding Scale -) 1 vial SQ ACHS [facility]; Protocol Last Admin: 09/14/19 11:04 Dose: Not Given Insulin Detemir (Levemir Vial) 8 units SQ AM [facility] Last Admin: 09/14/19 06:14 Dose: 8 units Metoprolol Tartrate (Lopressor -) 12.5 mg PO DAILY [facility] Last Admin: 09/14/19 10:05 Dose: 12.5 mg Naloxone HCl (Narcan -) 0.4 mg IVPUSH ONCE PRN PRN Reason: Sedation Nystatin (Nystop Powder -) 1 applic TP DAILY [facility] Last Admin: 09/14/19 10:06 Dose: 1 applic Ondansetron HCl (Zofran Injection) 4 mg IVPUSH ONCE PRN PRN Reason: NAUSEA Quetiapine Fumarate (Seroquel -) 12.5 mg PO DAILY [facility] Last Admin: 09/13/19 10:25 Dose: 12.5 mg Valsartan (Diovan -) 80 mg PO DAILY [facility] Last Admin: 09/14/19 10:06 Dose: 80 mg - Objective Vital Signs: Vital Signs Temperature 99.2 F 09/14/19 14:00 Pulse Rate 77 09/14/19 14:00 Respiratory Rate 18 09/14/19 14:00 Blood Pressure 156/57 L 09/14/19 14:00 O2 Sat by Pulse Oximetry (%) 100 09/14/19 09:00 Constitutional: Yes: Calm Eyes: Yes: Conjunctiva Clear HENT: Yes: Atraumatic Cardiovascular: Yes: S1, S2 Respiratory: Yes: CTA Bilaterally Gastrointestinal: Yes: Soft Genitourinary: Yes: Incontinence Edema: No Neurological: Yes: Confusion Labs: CBC, BMP 09/14/19 05:45 09/14/19 05:45 INR, PTT INR 1.08 (0.83-1.09) 08/31/19 05:10 Problem List - Problems (1) Hip fracture, right Code(s): S72.001A - FRACTURE OF UNSP PART OF NECK OF RIGHT FEMUR, INIT (2) Hypertension Code(s): I10 - ESSENTIAL (PRIMARY) HYPERTENSION Qualifiers: Hypertension type: essential hypertension Qualified Code(s): I10 - Essential (primary) hypertension Assessment/Plan Current Medications Generic Name Dose Route Start Last Admin Trade Name Freq PRN Reason Stop Dose Admin Acetaminophen 650 mg 09/01/19 13:30 09/14/19 13:01 Tylenol - PO 650 mg Q6H [facility] Administration Amlodipine Besylate 5 mg 09/07/19 13:40 09/14/19 10:05 Norvasc - PO 5 mg DAILY [facility] Administration Aspirin 81 mg 09/10/19 14:30 09/14/19 10:05 Asa - PO 81 mg DAILY [facility] Administration Atorvastatin Calcium 40 mg 09/10/19 22:00 09/13/19 21:16 Lipitor - PO Not Given HS [facility] Docusate Sodium 100 mg 09/01/19 22:00 09/14/19 10:06 Colace - PO Not Given BID [facility] Enoxaparin Sodium 40 mg 09/02/19 10:00 09/14/19 09:29 Lovenox - SQ 40 mg DAILY [facility] Administration Potassium Chloride 20 meq/ 1,010 mls @ 55 mls/hr 09/08/19 12:12 09/14/19 13: 00 Dextrose IVPB Not Given Q18H [facility] Insulin Aspart 1 vial 09/01/19 16:30 09/14/19 11:04 Novolog Vial Sliding Scale - SQ Not Given ACHS [facility] Protocol Insulin Detemir 8 units 02/23/20 07:57 09/14/19 06:14 Levemir Vial SQ 8 units AM [facility] Administration Metoprolol Tartrate 12.5 mg 09/12/19 10:00 09/14/19 10:05 Lopressor - PO 12.5 mg DAILY [facility] Administration Naloxone HCl 0.4 mg 09/01/19 13:21 Narcan - IVPUSH ONCE PRN Sedation Nystatin 1 applic 09/08/19 10:00 09/14/19 10:06 Nystop Powder - TP 1 applic DAILY [facility] Administration Ondansetron HCl 4 mg 09/01/19 13:21 Zofran Injection IVPUSH ONCE PRN NAUSEA Quetiapine Fumarate 12.5 mg 09/04/19 12:15 09/13/19 10:25 Seroquel - PO 12.5 mg DAILY [facility] Administration Valsartan 80 mg 09/02/19 10:00 09/14/19 10:06 Diovan - PO 80 mg DAILY [facility] Administration Impression 1. azotemia/dehydration 2. dm 3. hip fracture 4. htn 5. s/p fall 6. UTI 7. hypernatremia 8. CVA Plan - potassium rising, can remove from d5w - monitor lytes - encourage po intake - cont d5w until tomorrow - repeat labs in am - repeat ua if she allows
[2019-09-14] MEDS ORDERED: DEXTROSE 5%-WATER - 1,000 ML IV SCH (15:30)
[2019-09-14] MEDS: ATORVASTATIN CA 40 MG TABLET (FP) PO SCH (21:54)
[2019-09-15] MEDS: ACETAMINOPHEN 325 MG TABLET (FP) PO SCH ×4 (02:34→21:11)
[2019-09-15] MEDS: INSULIN SLIDING SCALE (NOVOLOG) 1 VIAL SQ SCH ×4 (06:17→21:12)
[2019-09-15] MEDS: INSULIN (LEVEMIR) 100 UNITS/ML UNITS SQ SCH (06:39)
[2019-09-15 07:26] LABS: BASO % 0.7 % (0-2.0); EOS % 3.1 % (0-4.5); HEMATOCRIT 26.8 % (32.4-45.2); HEMOGLOBIN 8.8 GM/dL (10.7-15.3); MCH 27.3 pg (25.7-33.7); MEAN CELL VOLUME 82.7 fl (80-96); MONO % 10.5 % (3.8-10.2); NEUT % 61.7 % (42.8-82.8); PLATELET COUNT 383 K/MM3 (134-434); RBC 3.25 M/mm3 (3.60-5.2); RDW 13.6 % (11.6-15.6); WHITE BLOOD COUNT 7.4 K/mm3 (4.0-10.0)
--- NOTE | 2019-09-15 07:29 | PN ---
Physical Exam: SUBJECTIVE: Patient seen and examined still confuse , will resume seraquel for now , repeat EKG for QTC , need to be re evaluated by psych for possible need for zyprexa as she is still aggressive and fighting with staph and pulling her IV line start clinimix will discuss with family need for PEG tube placement will need to hold ASA 7 days before procedure if approved OBJECTIVE: Vital Signs Period Temp Pulse Resp BP Sys/Powers Pulse Ox Last 24 Hr 98.6 F-99.2 F 65-91 18-20 127-156/41-69 100-100 GENERAL:awake alert byt lethargic HEAD: NC/AT EYES: Pupils equal, round and reactive to light, extraocular movements intact, EARS, NOSE, THROAT: dry mucous membranes. NECK: Normal range of motion, supple LUNGS: Breath sounds equal, clear to auscultation bilaterally. No wheezes, and no crackles. No accessory muscle use. HEART: Regular rate and rhythm, normal S1 and S2,4/6 systolic murmur all over RUSB , LUSB radiated to neck ABDOMEN: Soft, nontender, not distended, normoactive bowel sounds, UPPER EXTREMITIES: 2+ pulses, warm, well-perfused. hand with erythema as she bite her self LOWER EXTREMITIES: 2+ pulses, warm, well-perfused. No calf tenderness. No peripheral edema. right leg S/P gamma Nail IM with stitches , +2 DP, left leg FROM proximal and distal , B/L deep tissue injury NEUROLOGICAL: no focal deficit . PSYCHIATRIC: agitated SKIN: Warm, dry, normal turgor, Laboratory Results - last 24 hr 09/14/19 09/14/19 09/14/19 11:02 16:26 21:31 WBC RBC Hgb Hct MCV MCH MCHC RDW Plt Count MPV Absolute Neuts (auto) Neutrophils % Lymphocytes % Monocytes % Eosinophils % Basophils % Nucleated RBC % POC Glucometer 125 142 152 09/15/19 09/15/19 06:14 06:15 WBC 7.4 RBC 3.25 L Hgb 8.8 L Hct 26.8 L MCV 82.7 MCH 27.3 MCHC 33.0 RDW 13.6 Plt Count 383 MPV 9.0 Absolute Neuts (auto) 4.6 Neutrophils % 61.7 Lymphocytes % 24.0 Monocytes % 10.5 H Eosinophils % 3.1 D Basophils % 0.7 Nucleated RBC % 0 POC Glucometer 177 Active Medications Generic Name Dose Route Start Last Admin Trade Name Freq PRN Reason Stop Dose Admin Acetaminophen 650 mg 09/01/19 13:30 09/15/19 06:37 Tylenol - PO Not Given Q6H [facility] Amlodipine Besylate 5 mg 09/07/19 13:40 09/14/19 10:05 Norvasc - PO 5 mg DAILY [facility] Administration Aspirin 81 mg 09/10/19 14:30 09/14/19 10:05 Asa - PO 81 mg DAILY [facility] Administration Atorvastatin Calcium 40 mg 09/10/19 22:00 09/14/19 21:54 Lipitor - PO Not Given HS [facility] Docusate Sodium 100 mg 09/01/19 22:00 09/14/19 21:26 Colace - PO Not Given BID [facility] Enoxaparin Sodium 40 mg 09/02/19 10:00 09/14/19 09:29 Lovenox - SQ 40 mg DAILY [facility] Administration Dextrose 1,000 mls @ 42 mls/hr 09/14/19 15:30 09/14/19 15:47 D5w - IV 42 mls/hr ASDIR [facility] Administration Insulin Aspart 1 vial 09/01/19 16:30 09/15/19 06:17 Novolog Vial Sliding Scale - SQ Not Given ACHS [facility] Protocol Insulin Detemir 8 units 09/05/19 07:57 09/15/19 06:39 Levemir Vial SQ 8 units AM [facility] Administration Metoprolol Tartrate 12.5 mg 09/12/19 10:00 09/14/19 10:05 Lopressor - PO 12.5 mg DAILY [facility] Administration Naloxone HCl 0.4 mg 09/01/19 13:21 Narcan - IVPUSH ONCE PRN Sedation Nystatin 1 applic 09/08/19 10:00 09/14/19 10:06 Nystop Powder - TP 1 applic DAILY [facility] Administration Ondansetron HCl 4 mg 09/01/19 13:21 Zofran Injection IVPUSH ONCE PRN [facility]A Quetiapine Fumarate 12.5 mg 09/04/19 12:15 09/13/19 10:25 Seroquel - PO 12.5 mg DAILY [facility] Administration Valsartan 80 mg 09/02/19 10:00 09/14/19 10:06 Diovan - PO 80 mg DAILY [facility] Administration CBC, BMP 09/15/19 06:15 09/15/19 06:15 CT of Head completed and showed moderate atrophy and chronic microvascular ischemic disease. 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 On 09/10, ordered repeat CT head [facility] demonstrated recent left M2 branch cerebrovascular accident. Head Ct Aug 15 Impression: Moderate atrophy. Involving the previously visualized acute/subacute infarct in the left posterior temporal and occipital lobe. No gross interval acute infarct is identified. Correlate clinically to determine further evaluation and follow-up. ASSESSMENT/PLAN: This is a 87 year old female with a history of IDDM, HTN, diverticulosis, depression, presented with after fall on her right side found to have right hip fx and elevated trop # Right intertrochanter fx S/P fall S/P IM Gamma nail POD #5 * admit to tele * xray reviewed , head CT negative for acute pathology * pain control iV morphin 2 mg Q 4hr , Oxy 5 and 10 and fentanyl patches * Echo was done in september 2018 wit EF 70 % and mild D chf grade II , Mild and AR , will repeat as more than 6 month * resume diet * dc IV fluids * cont ertapeneim # Acute large left parieto-occipital CVA * Head CT 08/30 showed moderate atrophy, periventricular chronic microvascular ischemic disease, chronic infarcts in right occipital lobe and right external capsule * Head CT 09/10 showed recent infarct of left middle, superior temporal gyri * MRI brain 09/10 showed acute large infarct of left parieto-occipital region, extensive periventricular ischemic changes in both hemispheres * Carotid dopplers showed critical stenosis on left, moderate stenosis on right * Last known well was not able to be determined secondary to patient's delirium, and patient was not a candidate for tPA secondary to recent surgery * Patient's family is refusing neck CTA as they would not want any intervention * Continue aspirin, Lipitor * speech and swallow with mild dysphagia , recommend puree diet * will benifit from [facility] #deep tissue injury b/l heels #pvd #blistering Awaiting vascular. Betadine dressing left heel Heel pads b/l. Pillow under calf both legs. Will follow. xray left heel. per matlab developer # UTI with history f ESBL echoli consult ID switch abx to ertapinim dc Vanco follow cx and sensiticity , wbc elevated today cont to mmonitor cbc daily # Dilirious 2/2 UTI vs surgery vs medication SE , improving * consult psych * QTC 466 * , can Giv Atiavn low dose Q 6 hr as needed for agitation avoid haldol for now as QTC is borderline * started on Seraquel * head of bed elevation , aspiration precautions #fall 2/2 syncope vs dehydration vs mechanical fall vs imbalance gait VS UTI * head CT negative for acute pathology * echo reviewed EF 65 % , LVH , mild MR and TR and AR , normal LV function * bp monitor * PT eval after surgery * will benefit from JOELLEN #Hypertensive , non compliant with her meds * cont valsartan 80 mg qD hold for BP below 100 * decrease norvasc to 5 mg qd hold for sytolic less than 100 * start on Torol XL 12.5 Daily per cardiology #elevated troponin likely demand ischemia , no EKG changes , * trend trop * ACS unlikely; likely demand ischemia * echo reviewed * cardiology consulted #DM , uncontrolled 2/2 non compliant , A1c 13 * last hemoglobin a1c 10.repeat 13 * currently on ISS, add levimer 8 units SQ once * hold oral agents * diabetic diet #depression with suicidal ideation * on zoloft, cont * start seraquel # 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 - New Patient This patient is new to me today: No - Critical Care Critical Care patient: No - Discharge Referral Referred to [facility] Med [facility] No ATTENDING PHYSICIAN STATEMENT I saw and evaluated the patient. I reviewed the resident's note and discussed the case with the resident. I agree with the resident's findings and plan as documented. SUBJECTIVE: OBJECTIVE: ASSESSMENT AND PLAN:
[2019-09-15 07:43] LABS: ALBUMIN 2.3 g/dl (3.4-5.0); BILIRUBIN,TOTAL 0.7 mg/dL (0.2-1); BLOOD UREA NITROGEN 9.6 mg/dL (7-18); CALCIUM 8.7 mg/dL (8.5-10.1); CREATININE 0.8 mg/dL (0.55-1.3); MAGNESIUM 1.8 mg/dL (1.8-2.4); PHOSPHOROUS 3.2 mg/dL (2.5-4.9); POTASSIUM 3.9 mmol/L (3.5-5.1); TOT PROT 5.6 g/dl (6.4-8.2)
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
[2019-09-15] MEDS ORDERED: PT OWN MED DRAWER 7, Y5N ONE ×2 (10:04→13:37)
--- NOTE | 2019-09-15 10:10 | PN ---
Progress Note, Physician History of Present Illness: POD#17 Right IT fx post right IM gamma nail, left acute stroke confirmed with brain MRI, more alert, but confused. No PAF on monitor yet. Sensorium much improved today, interactive. - Current Medication List Current Medications: Active Medications Acetaminophen (Tylenol -) 650 mg PO Q6H [facility] Last Admin: 09/15/19 06:37 Dose: Not Given Amlodipine Besylate (Norvasc -) 5 mg PO DAILY [facility] Last Admin: 09/14/19 10:05 Dose: 5 mg Ascorbic Acid (Vitamin C -) 500 mg PO DAILY [facility] Aspirin (Asa -) 81 mg PO DAILY [facility] Last Admin: 09/14/19 10:05 Dose: 81 mg Atorvastatin Calcium (Lipitor -) 40 mg PO HS [facility] Last Admin: 09/14/19 21:54 Dose: Not Given Docusate Sodium (Colace -) 100 mg PO BID [facility] Last Admin: 09/14/19 21:26 Dose: Not Given Enoxaparin Sodium (Lovenox -) 40 mg SQ DAILY [facility] Last Admin: 09/14/19 09:29 Dose: 40 mg Dextrose (D5w -) 1,000 mls @ 42 mls/hr IV ASDIR [facility] Last Admin: 09/14/19 15:47 Dose: 42 mls/hr Insulin Aspart (Novolog Vial Sliding Scale -) 1 vial SQ ACHS [facility]; Protocol Last Admin: 09/15/19 06:17 Dose: Not Given Insulin Detemir (Levemir Vial) 8 units SQ AM [facility] Last Admin: 09/15/19 06:39 Dose: 8 units Metoprolol Tartrate (Lopressor -) 12.5 mg PO DAILY [facility] Last Admin: 09/14/19 10:05 Dose: 12.5 mg Multivitamins/Minerals (Infuvite Adult -) 10 ml IV DAILY [facility] Naloxone HCl (Narcan -) 0.4 mg IVPUSH ONCE PRN PRN Reason: Sedation Nystatin (Nystop Powder -) 1 applic TP DAILY [facility] Last Admin: 09/14/19 10:06 Dose: 1 applic Ondansetron HCl (Zofran Injection) 4 mg IVPUSH ONCE PRN PRN Reason: NAUSEA Quetiapine Fumarate (Seroquel -) 12.5 mg PO DAILY [facility] Last Admin: 09/13/19 10:25 Dose: 12.5 mg Valsartan (Diovan -) 80 mg PO DAILY [facility] Last Admin: 09/14/19 10:06 Dose: 80 mg - Objective Vital Signs: Vital Signs Temperature 98.6 F 09/15/19 06:00 Pulse Rate 65 09/15/19 06:00 Respiratory Rate 18 09/15/19 06:00 Blood Pressure 127/41 L 09/15/19 06:00 O2 Sat by Pulse Oximetry (%) 100 09/14/19 21:00 Constitutional: Yes: No Distress, Calm, Thin Neck: Yes: Supple Cardiovascular: Yes: Regular Rate and Rhythm Respiratory: Yes: Regular, CTA Bilaterally Gastrointestinal: Yes: Normal Bowel Sounds, Soft Edema: No Labs: CBC, BMP 09/15/19 06:15 09/15/19 06:15 INR, PTT INR 1.08 (0.83-1.09) 08/31/19 05:10 Problem List - Problems (1) Acute ischemic left MCA stroke Code(s): I63.512 - CEREB INFRC D/T UNSP OCCLS OR STENOS OF LEFT MID CEREB ART (2) Left carotid stenosis Code(s): I65.22 - OCCLUSION AND STENOSIS OF LEFT CAROTID ARTERY Assessment/Plan Problem List - Problems (1) Diabetes mellitus Code(s): E11.9 - TYPE 2 DIABETES MELLITUS WITHOUT COMPLICATIONS (2) Hip fracture, right Code(s): S72.001A - FRACTURE OF UNSP PART OF NECK OF RIGHT FEMUR, INIT (3) Mitral regurgitation Code(s): I34.0 - NONRHEUMATIC MITRAL (VALVE) INSUFFICIENCY Qualifiers: Cardiac valve disease etiology: nonrheumatic Qualified Code(s): I34.0 - Nonrheumatic mitral (valve) insufficiency (4) Aortic regurgitation Code(s): I35.1 - NONRHEUMATIC AORTIC (VALVE) INSUFFICIENCY Qualifiers: Cardiac valve disease etiology: nonrheumatic Qualified Code(s): I35.1 - Nonrheumatic aortic (valve) insufficiency (5) Hypertension Code(s): I10 - ESSENTIAL (PRIMARY) HYPERTENSION Qualifiers: Hypertension type: essential hypertension Qualified Code(s): I10 - Essential (primary) hypertension Echo (Normal LVEF, mild AR, mild MR, trace TR) Assessment/Plan 09/10/2019 Brain MRI Acute large nonhemorrhagic stroke left parieto-occipital region 08/31/2019 Severe cLVH normal LVEF 65%, mild MR, AR, tr TR 1. Acute nonhemorrhagic left parieto-occipital stroke -> left MCA, M2 branch 2. Left critical carotid stenosis not ideal candidate for intervention currently 3. Post fall resulting in right intra-trochanteric fracture POD#17 post right intra-medullary gamma nail 4. Coronary artery disease with evidence of demand ischemia angina pectoris 5. Probable diastolic left ventricular dysfunction with clinical class 0 [place] [employer] classification left ventricular failure 6. HTN 7. Diabetes Mellitus 8. Dementia with delirium -> acute stroke 9. Urinary tract infection post abx course PLAN: 1. Continue Diovan 80 qd. ASA 81 qd, monitoring manager r/o PAF 2. Continue Amlodipine 5 qd, Toprol-XL 12.5 qd, Lipitor 40 qd for LDL<70 ( current LDL 96) 3. Reorient patient d/w family members 4. Dysphagia diet per S&S
[2019-09-15] MEDS: ENOXAPARIN NA (PORCINE) 40 MG/0.4 ML DISP.SYRIN SQ SCH (10:12)
[2019-09-15] MEDS: ASPIRIN 81 MG CHEWABLE TABLETS PO SCH (10:15)
[2019-09-15] MEDS: QUEtiapine FUMARATE 25 MG TABLET PO SCH (10:16)
[2019-09-15] MEDS: METOPROLOL TARTRATE 25 MG TABLET (FP) PO SCH (10:16)
[2019-09-15] MEDS: ASCORBIC ACID 500 MG TABLET (FP) PO SCH (10:19)
[2019-09-15] MEDS: DOCUSATE SODIUM 100 MG CAPSULE (FP) PO SCH ×2 (10:19→21:12)
[2019-09-15] MEDS: VALSARTAN 80 MG TABLET (UD) PO SCH (10:20)
[2019-09-15] MEDS: amLODIPine BESYLATE 10 MG TABLET (FP) PO SCH (10:21)
[2019-09-15] MEDS: NYSTATIN POWDER 100,000 UNITS/GM - 15 GM TOPICAL POWDER TP SCH (10:21)
--- NOTE | 2019-09-15 11:38 | PN ---
Progress Note (short form) - Note Progress Note: Pt seen in bed. Sister present. Vss +tender dystrophic mycotic nails with subungual debris, +inflammed nail beds x 10, +wounds b/l heels onychomycosis pain dti b/l heels Debride nails x 10. Heels pads b/l feet. Betadine dressing changes to heels. Will follow for heel wounds. Sister and brother in law present throughout.
--- NOTE | 2019-09-15 11:45 | PN ---
Progress Note, Physician History of Present Illness: Pt seen and examined at bedside. She is agitated and yelling. She is not eating. - Current Medication List Current Medications: Active Medications Acetaminophen (Tylenol -) 650 mg PO Q6H [facility] Last Admin: 09/15/19 06:37 Dose: Not Given Amlodipine Besylate (Norvasc -) 5 mg PO DAILY [facility] Last Admin: 09/15/19 10:21 Dose: 5 mg Ascorbic Acid (Vitamin C -) 500 mg PO DAILY [facility] Last Admin: 09/15/19 10:19 Dose: 500 mg Aspirin (Asa -) 81 mg PO DAILY [facility] Last Admin: 09/15/19 10:15 Dose: 81 mg Atorvastatin Calcium (Lipitor -) 40 mg PO HS [facility] Last Admin: 09/14/19 21:54 Dose: Not Given Docusate Sodium (Colace -) 100 mg PO BID [facility] Last Admin: 09/15/19 10:19 Dose: Not Given Enoxaparin Sodium (Lovenox -) 40 mg SQ DAILY [facility] Last Admin: 09/15/19 10:12 Dose: 40 mg Dextrose (D5w -) 1,000 mls @ 42 mls/hr IV ASDIR [facility] Last Admin: 09/14/19 15:47 Dose: 42 mls/hr Insulin Aspart (Novolog Vial Sliding Scale -) 1 vial SQ ACHS [facility]; Protocol Last Admin: 09/15/19 06:17 Dose: Not Given Insulin Detemir (Levemir Vial) 8 units SQ AM [facility] Last Admin: 09/15/19 06:39 Dose: 8 units Metoprolol Tartrate (Lopressor -) 12.5 mg PO DAILY [facility] Last Admin: 09/15/19 10:16 Dose: 12.5 mg Multivitamins/Minerals (Infuvite Adult -) 10 ml IV DAILY [facility] Naloxone HCl (Narcan -) 0.4 mg IVPUSH ONCE PRN PRN Reason: Sedation Nystatin (Nystop Powder -) 1 applic TP DAILY [facility] Last Admin: 09/15/19 10:21 Dose: 1 applic Ondansetron HCl (Zofran Injection) 4 mg IVPUSH ONCE PRN PRN Reason: NAUSEA Quetiapine Fumarate (Seroquel -) 12.5 mg PO DAILY [facility] Last Admin: 09/15/19 10:16 Dose: 12.5 mg Valsartan (Diovan -) 80 mg PO DAILY [facility] Last Admin: 09/15/19 10:20 Dose: 80 mg - Objective Vital Signs: Vital Signs Temperature 98.6 F 09/15/19 06:00 Pulse Rate 65 09/15/19 06:00 Respiratory Rate 18 09/15/19 06:00 Blood Pressure 127/41 L 09/15/19 06:00 O2 Sat by Pulse Oximetry (%) 100 09/14/19 21:00 Constitutional: Yes: Anxious Eyes: Yes: Conjunctiva Clear HENT: Yes: Atraumatic Cardiovascular: Yes: S1, S2 Respiratory: Yes: CTA Bilaterally Gastrointestinal: Yes: Soft Genitourinary: Yes: Incontinence Musculoskeletal: Yes: Muscle Weakness Edema: No Neurological: Yes: Confusion Psychiatric: Yes: Agitated Labs: CBC, BMP 09/15/19 06:15 09/15/19 06:15 INR, PTT INR 1.08 (0.83-1.09) 08/31/19 05:10 Problem List - Problems (1) Hip fracture, right Code(s): S72.001A - FRACTURE OF UNSP PART OF NECK OF RIGHT FEMUR, INIT (2) Hypertension Code(s): I10 - ESSENTIAL (PRIMARY) HYPERTENSION Qualifiers: Hypertension type: essential hypertension Qualified Code(s): I10 - Essential (primary) hypertension Assessment/Plan Current Medications Generic Name Dose Route Start Last Admin Trade Name Freq PRN Reason Stop Dose Admin Acetaminophen 650 mg 09/01/19 13:30 09/15/19 06:37 Tylenol - PO Not Given Q6H [facility] Amlodipine Besylate 5 mg 09/07/19 13:40 09/15/19 10:21 Norvasc - PO 5 mg DAILY [facility] Administration Ascorbic Acid 500 mg 09/15/19 10:00 09/15/19 10:19 Vitamin C - PO 500 mg DAILY [facility] Administration Aspirin 81 mg 09/10/19 14:30 09/15/19 10:15 Asa - PO 81 mg DAILY [facility] Administration Atorvastatin Calcium 40 mg 09/10/19 22:00 09/14/19 21:54 Lipitor - PO Not Given HS [facility] Docusate Sodium 100 mg 09/01/19 22:00 09/15/19 10:19 Colace - PO Not Given BID [facility] Enoxaparin Sodium 40 mg 09/02/19 10:00 09/15/19 10:12 Lovenox - SQ 40 mg DAILY [facility] Administration Dextrose 1,000 mls @ 42 mls/hr 09/14/19 15:30 09/14/19 15:47 D5w - IV 42 mls/hr ASDIR [facility] Administration Insulin Aspart 1 vial 09/01/19 16:30 09/15/19 06:17 Novolog Vial Sliding Scale - SQ Not Given ACHS [facility] Protocol Insulin Detemir 8 units 09/05/19 07:57 09/15/19 06:39 Levemir Vial SQ 8 units AM [facility] Administration Metoprolol Tartrate 12.5 mg 09/12/19 10:00 09/15/19 10:16 Lopressor - PO 12.5 mg DAILY [facility] Administration Multivitamins/Minerals 10 ml 09/15/19 10:00 Infuvite Adult - IV DAILY [facility] Naloxone HCl 0.4 mg 09/01/19 13:21 Narcan - IVPUSH ONCE PRN Sedation Nystatin 1 applic 09/08/19 10:00 09/15/19 10:21 Nystop Powder - TP 1 applic DAILY [facility] Administration Ondansetron HCl 4 mg 09/01/19 13:21 Zofran Injection IVPUSH ONCE PRN [facility] Quetiapine Fumarate 12.5 mg 09/04/19 12:15 09/15/19 10:16 Seroquel - PO 12.5 mg DAILY [facility] Administration Valsartan 80 mg 09/02/19 10:00 09/15/19 10:20 Diovan - PO 80 mg DAILY [facility] Administration Laboratory Tests 09/15/19 06:15 Albumin 2.3 L Impression 1. azotemia/dehydration 2. dm 3. hip fracture 4. htn 5. s/p fall 6. UTI 7. hypernatremia 8. CVA Plan - potassium is improved - pt has poor PO intake - discussed with medical team, will start clinimix for now - psych follow up - monitor lytes
--- NOTE | 2019-09-15 12:44 | PN ---
Progress Note, [employer] COORDINATOR - Note Progress Note: Selected Entries 09/14/19 09/14/19 09/14/19 02:04 10:00 11:23 Breakfast 0 Lunch Supper Temperature 98.0 F 99.1 F 09/14/19 09/14/19 09/14/19 14:00 21:46 22:00 Breakfast Lunch 50% Supper 25% Temperature 99.2 F 97.8 F 09/15/19 09/15/19 09/15/19 06:00 10:00 12:08 Breakfast 25% Lunch Supper Temperature 98.6 F 98.6 F Laboratory Tests 09/14/19 09/15/19 05:45 06:15 WBC 10.7 H 7.4 Speaking much better, starting to understand more. However, quite confused, paranoid-like, poor cooperation. Refusing all po trials. Provide Ensure - Accepted liquids more than solids yesterday. STR more appropriate than acute care at this time
[2019-09-15] MEDS: POTASSIUM CHLORIDE 10 MEQ in AMINO ACIDS 4.25%/D5W 1,000 ML IVPB SCH (14:07)
[2019-09-15] MEDS: MULTIVIT INJ. ADULT COMBO WITH VIT K 1 COMBO 10 ML VIAL IV SCH (14:08)
[2019-09-15] MEDS ORDERED: LORazepam 2 MG/ML SDV VIAL IVPUSH ONE (15:29)
--- NOTE | 2019-09-15 17:28 | PN ---
Teaching Attending Note Name of Resident: Eduardo Rahman ATTENDING PHYSICIAN STATEMENT I saw and evaluated the patient. I reviewed the resident's note and discussed the case with the resident. I agree with the resident's findings and plan as documented. SUBJECTIVE: Patient seen and examined at bedside. Answering to simple questions still confused, family at bedside, will likely need further rehabilitation, ?at [facility], [facility]. OBJECTIVE: GENERAL: AAox0, delirius, MS waxing and waning, NAD HEAD: NC/AT, no facial lacerations or scalp trauma EYES: Pupils equal, round and reactive to light, extraocular movements intact, ENT: dry MM NECK: Normal range of motion, supple LUNGS: CTAB, poor inspiratory effort HEART: S1, S2+, SULEMAN+ ABDOMEN: Soft, nontender, not distended, normoactive bowel sounds, UPPER EXTREMITIES: 2+ pulses, warm, well-perfused. No cyanosis. No clubbing. No peripheral edema. LOWER EXTREMITIES: 2+ pulses, warm, well-perfused. No calf tenderness. No peripheral edema. RLE abducted and shorter than LLE, severe pain in RLE on manipulation, good ROM LLE, limited motion RLE d/t pain NEUROLOGICAL: delirious but answers to simple questions, AAox1 PSYCHIATRIC: Delirious. MS waxing aND WANING. SKIN: Warm, dry, normal turgor. Vital Signs - 24 hr 09/14/19 09/14/19 09/15/19 21:00 22:00 01:57 Temperature 97.8 F Pulse Rate 64 65 Respiratory 18 22 H Rate Blood Pressure 157/83 O2 Sat by Pulse 100 Oximetry (%) 09/15/19 09/15/19 09/15/19 06:00 09:00 10:00 Temperature 98.6 F 98.6 F Pulse Rate 65 63 Respiratory 18 18 18 Rate Blood Pressure 127/41 L 144/50 L O2 Sat by Pulse 100 Oximetry (%) 09/15/19 14:13 Temperature 97.7 F Pulse Rate 66 Respiratory 16 Rate Blood Pressure 122/46 L O2 Sat by Pulse Oximetry (%) Microbiology 09/02/19 17:20 Blood - Peripheral Venous Blood Culture - Final NO GROWTH AFTER 5 DAYS INCUBATION 09/02/19 17:20 Blood - Peripheral Venous Blood Culture - Final NO GROWTH AFTER 5 DAYS INCUBATION 09/02/19 18:00 Urine - Urine - Catheterized Urine Culture - Final Yeast Like Organism Laboratory Results - last 24 hr 09/09/19 09/14/19 09/15/19 10:03 21:31 06:14 WBC RBC Hgb Hct MCV MCH MCHC RDW Plt Count MPV Absolute Neuts (auto) Neutrophils % Lymphocytes % Monocytes % Eosinophils % Basophils % Nucleated RBC % Sodium Potassium Chloride Carbon Dioxide Anion Gap BUN Creatinine Est GFR (CKD-EPI)AfAm Est GFR (CKD-EPI)NonAf POC Glucometer 152 177 Random Glucose Calcium Phosphorus Magnesium Total Bilirubin AST ALT Alkaline Phosphatase Total Protein Albumin Serotonin 27 09/15/19 09/15/19 09/15/19 06:15 06:15 11:36 WBC 7.4 RBC 3.25 L Hgb 8.8 L Hct 26.8 L MCV 82.7 MCH 27.3 MCHC 33.0 RDW 13.6 Plt Count 383 MPV 9.0 Absolute Neuts (auto) 4.6 Neutrophils % 61.7 Lymphocytes % 24.0 Monocytes % 10.5 H Eosinophils % 3.1 D Basophils % 0.7 Nucleated RBC % 0 Sodium 142 Potassium 3.9 Chloride 109 H Carbon Dioxide 26 Anion Gap 7 L BUN 9.6 Creatinine 0.8 Est GFR (CKD-EPI)AfAm 77.37 Est GFR (CKD-EPI)NonAf 66.76 POC Glucometer 153 Random Glucose 176 H Calcium 8.7 Phosphorus 3.2 Magnesium 1.8 Total Bilirubin 0.7 AST 23 ALT 21 Alkaline Phosphatase 102 Total Protein 5.6 L Albumin 2.3 L Serotonin 09/15/19 17:19 WBC RBC Hgb Hct MCV MCH MCHC RDW Plt Count MPV Absolute Neuts (auto) Neutrophils % Lymphocytes % Monocytes % Eosinophils % Basophils % Nucleated RBC % Sodium Potassium Chloride Carbon Dioxide Anion Gap BUN Creatinine Est GFR (CKD-EPI)AfAm Est GFR (CKD-EPI)NonAf POC Glucometer 117 Random Glucose Calcium Phosphorus Magnesium Total Bilirubin AST ALT Alkaline Phosphatase Total Protein Albumin Serotonin Home Medications Medication Instructions Recorded Amlodipine Besylate 10 mg PO DAILY #30 tablet 09/29/18 Aspirin Coated [Ecotrin -] 81 mg PO DAILY #30 tablet.ec 09/29/18 Metformin HCl [Glucophage] 500 mg PO BID #60 tablet 09/29/18 Miscellaneous Medical Supply 1 each .ROUTE ACHS #1 box 09/29/18 [Glucometer Test Strips #100] Nitrofurantoin Monohyd/M-Cryst 100 mg PO BID #14 capsule 09/29/18 [Macrobid -] Olmesartan Medoxomil 40 mg PO DAILY #30 tablet 09/29/18 Sertraline HCl 25 mg PO DAILY #30 tablet 09/29/18 Valsartan 80 mg PO DAILY 08/30/19 Current Medications Generic Name Dose Route Start Last Admin Trade Name Freq PRN Reason Stop Dose Admin Acetaminophen 650 mg 09/01/19 13:30 09/15/19 12:40 Tylenol - PO 650 mg Q6H [facility] Administration Amlodipine Besylate 5 mg 09/16/19 10:00 Norvasc - PO DAILY [facility] Ascorbic Acid 500 mg 09/15/19 10:00 09/15/19 10:19 Vitamin C - PO 500 mg DAILY [facility] Administration Aspirin 81 mg 09/10/19 14:30 09/15/19 10:15 Asa - PO 81 mg DAILY [facility] Administration Atorvastatin Calcium 40 mg 09/10/19 22:00 09/14/19 21:54 Lipitor - PO Not Given HS [facility] Docusate Sodium 100 mg 09/01/19 22:00 09/15/19 10:19 Colace - PO Not Given BID [facility] Enoxaparin Sodium 40 mg 09/02/19 10:00 09/15/19 10:12 Lovenox - SQ 40 mg DAILY [facility] Administration Potassium Chloride 10 meq/ 1,005 mls @ 50 mls/hr 09/15/19 12:00 09/15/19 14: 07 Amino Acids IVPB 50 mls/hr Q24H [facility] Administration Insulin Aspart 1 vial 09/01/19 16:30 09/15/19 11:43 Novolog Vial Sliding Scale - SQ Not Given ACHS [facility] Protocol Insulin Detemir 8 units 09/05/19 07:57 09/15/19 06:39 Levemir Vial SQ 8 units AM [facility] Administration Metoprolol Tartrate 12.5 mg 09/12/19 10:00 09/15/19 10:16 Lopressor - PO 12.5 mg DAILY [facility] Administration Multivitamins/Minerals 10 ml 09/15/19 13:00 09/15/19 14:08 Infuvite Adult - IV 10 ml DAILY [facility] Administration Naloxone HCl 0.4 mg 09/01/19 13:21 Narcan - IVPUSH ONCE PRN Sedation Nystatin 1 applic 09/08/19 10:00 09/15/19 10:21 Nystop Powder - TP 1 applic DAILY [facility] Administration Ondansetron HCl 4 mg 09/01/19 13:21 Zofran Injection IVPUSH ONCE PRN NAUSEA Quetiapine Fumarate 12.5 mg 09/04/19 12:15 09/15/19 10:16 Seroquel - PO 12.5 mg DAILY [facility] Administration Valsartan 80 mg 09/02/19 10:00 09/15/19 10:20 Diovan - PO 80 mg DAILY [facility] Administration A/P: 88 F h/o IDDM, HTN, diverticulosis, depression presents s/p fall ?mechanical v.s. syncopal, and troponemia. Right intertrochanter fx S/P fall s/p gamma nail off abx, afebrile, WBC WNL, VSS, but now w/ worsening delirium keep off benzo/haldol unless absolutely necessary frequent re-positioning, encourage PO intake, encourage PO intake L MCA non-hemorrhagic stroke L carotid stenosis but not candidate for surgery ASA, Statin Neurology consult tele monitoring Delirium multifactorial, elderly w/ trauma, psychotropic meds etc. DC SSRI (not providing any benefit seems to be worsening delirium), follow serotonin levels Ativan DCed, pain meds DCed, only on Seroquel right now for agitation frequent re-orientation, educate family, reassure, bring in familiar objects from home, daytime light exposure hypokalemia resolved follow chem HTN cont. BP meds monitor VS T2DM ISS, monitor FS (not eating watch for hypoglycemia) Depression with worsening delirium Hold psych meds counseled family regarding re-orientation, they will bring in familiar house objects (blanket, family photos and pics etc.) Psych follow up: Dr Orr DVT ppx: Eliquis Cont. Tele as per Cardiology recs SW evaluation for SNF placement (?[facility])
[2019-09-15] MEDS: ATORVASTATIN CA 40 MG TABLET (FP) PO SCH (21:11)
[2019-09-16] MEDS: ACETAMINOPHEN 325 MG TABLET (FP) PO SCH ×4 (02:10→21:55)
[2019-09-16] MEDS: LORazepam 2 MG/ML SDV VIAL IM PRN ×2 (02:19→13:55)
--- NOTE | 2019-09-16 07:37 | PN ---
Physical Exam: SUBJECTIVE: Patient seen and examined still confuse , , repeat EKG for QTC 444 , need to be re evaluated by psych for possible need for zyprexa as she is still aggressive and fighting with staph and pulling her IV line start clinimix will discuss with family need for PEG tube placement will need to hold ASA 7 days before procedure if approved start on clinimix OBJECTIVE: Vital Signs Period Temp Pulse Resp BP Sys/Powers Pulse Ox Last 24 Hr 97.6 F-98.6 F 63-73 16-18 121-159/46-79 98-100 GENERAL:awake alert byt lethargic HEAD: NC/AT EYES: Pupils equal, round and reactive to light, extraocular movements intact, EARS, NOSE, THROAT: dry mucous membranes. NECK: Normal range of motion, supple LUNGS: Breath sounds equal, clear to auscultation bilaterally. No wheezes, and no crackles. No accessory muscle use. HEART: Regular rate and rhythm, normal S1 and S2,4/6 systolic murmur all over RUSB , LUSB radiated to neck ABDOMEN: Soft, nontender, not distended, normoactive bowel sounds, UPPER EXTREMITIES: 2+ pulses, warm, well-perfused. hand with erythema as she bite her self LOWER EXTREMITIES: 2+ pulses, warm, well-perfused. No calf tenderness. No peripheral edema. right leg S/P gamma Nail IM with stitches , +2 DP, left leg FROM proximal and distal , B/L deep tissue injury NEUROLOGICAL: no focal deficit . PSYCHIATRIC: agitated SKIN: Warm, dry, normal turgor, Laboratory Results - last 24 hr 09/09/19 09/15/19 09/15/19 10:03 06:15 11:36 Sodium 142 Potassium 3.9 Chloride 109 H Carbon Dioxide 26 Anion Gap 7 L BUN 9.6 Creatinine 0.8 Est GFR (CKD-EPI)AfAm 77.37 Est GFR (CKD-EPI)NonAf 66.76 POC Glucometer 153 Random Glucose 176 H Calcium 8.7 Phosphorus 3.2 Magnesium 1.8 Total Bilirubin 0.7 AST 23 ALT 21 Alkaline Phosphatase 102 Total Protein 5.6 L Albumin 2.3 L Serotonin 09/15/19 09/15/19 09/16/19 17:19 21:10 06:44 Sodium Potassium Chloride Carbon Dioxide Anion Gap BUN Creatinine Est GFR (CKD-EPI)AfAm Est GFR (CKD-EPI)NonAf POC Glucometer 117 114 182 Random Glucose Calcium Phosphorus Magnesium Total Bilirubin AST ALT Alkaline Phosphatase Total Protein Albumin Serotonin Active Medications Generic Name Dose Route Start Last Admin Trade Name Freq PRN Reason Stop Dose Admin Acetaminophen 650 mg 09/01/19 13:30 09/16/19 02:10 Tylenol - PO Not Given Q6H [facility] Amlodipine Besylate 5 mg 09/16/19 10:00 Norvasc - PO DAILY [facility] Ascorbic Acid 500 mg 09/15/19 10:00 09/15/19 10:19 Vitamin C - PO 500 mg DAILY [facility] Administration Aspirin 81 mg 09/10/19 14:30 09/15/19 10:15 Asa - PO 81 mg DAILY [facility] Administration Atorvastatin Calcium 40 mg 09/10/19 22:00 09/14/19 21:54 Lipitor - PO Not Given HS [facility] Docusate Sodium 100 mg 09/01/19 22:00 09/15/19 21:12 Colace - PO Not Given BID [facility] Enoxaparin Sodium 40 mg 09/02/19 10:00 09/15/19 10:12 Lovenox - SQ 40 mg DAILY [facility] Administration Potassium Chloride 10 meq/ 1,005 mls @ 50 mls/hr 09/15/19 12:00 09/15/19 14:07 Amino Acids IVPB 50 mls/hr Q24H [facility] Administration Insulin Aspart 1 vial 09/01/19 16:30 09/15/19 21:12 Novolog Vial Sliding Scale - SQ Not Given ACHS [facility] Protocol Insulin Detemir 8 units 09/05/19 07:57 09/15/19 06:39 Levemir Vial SQ 8 units AM [facility] Administration Lorazepam 0.5 mg 09/15/19 18:34 09/16/19 02:19 Ativan Injection - IM 0.5 mg Q12H PRN Administration ANXIETY Metoprolol Tartrate 12.5 mg 09/12/19 10:00 09/15/19 10:16 Lopressor - PO 12.5 mg DAILY [facility] Administration Multivitamins/Minerals 10 ml 09/15/19 13:00 09/15/19 14:08 Infuvite Adult - IV 10 ml DAILY [facility] Administration Naloxone HCl 0.4 mg 09/01/19 13:21 Narcan - IVPUSH ONCE PRN Sedation Nystatin 1 applic 09/08/19 10:00 09/15/19 10:21 Nystop Powder - TP 1 applic DAILY [facility] Administration Ondansetron HCl 4 mg 09/01/19 13:21 Zofran Injection IVPUSH ONCE PRN NAUSEA Quetiapine Fumarate 12.5 mg 09/04/19 12:15 09/15/19 10:16 Seroquel - PO 12.5 mg DAILY [facility] Administration Valsartan 80 mg 09/02/19 10:00 09/15/19 10:20 Diovan - PO 80 mg DAILY [facility] Administration CBC, BMP 09/16/19 05:39 09/16/19 05:39 ASSESSMENT/PLAN: CT of Head completed and showed moderate atrophy and chronic microvascular ischemic disease. 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 On 09/10, ordered repeat CT head [facility] demonstrated recent left M2 branch cerebrovascular accident. Head Ct Aug 15 Impression: Moderate atrophy. Involving the previously visualized acute/subacute infarct in the left posterior temporal and occipital lobe. No gross interval acute infarct is identified. Correlate clinically to determine further evaluation and follow-up. ASSESSMENT/PLAN: This is a 87 year old female with a history of IDDM, HTN, diverticulosis, depression, presented with after fall on her right side found to have right hip fx and elevated trop # Right intertrochanter fx S/P fall S/P IM Gamma nail POD #5 * admit to tele * xray reviewed , head CT negative for acute pathology * pain control iV morphin 2 mg Q 4hr , Oxy 5 and 10 and fentanyl patches * Echo was done in september 2018 wit EF 70 % and mild D chf grade II , Mild and AR , will repeat as more than 6 month * resume diet * dc IV fluids * cont ertapeneim # Acute large left parieto-occipital CVA * Head CT 08/30 showed moderate atrophy, periventricular chronic microvascular ischemic disease, chronic infarcts in right occipital lobe and right external capsule * Head CT 09/10 showed recent infarct of left middle, superior temporal gyri * MRI brain 09/10 showed acute large infarct of left parieto-occipital region, extensive periventricular ischemic changes in both hemispheres * Carotid dopplers showed critical stenosis on left, moderate stenosis on right * Last known well was not able to be determined secondary to patient's delirium, and patient was not a candidate for tPA secondary to recent surgery * Patient's family is refusing neck CTA as they would not want any intervention * Continue aspirin, Lipitor * speech and swallow with mild dysphagia , recommend puree diet * will benifit from [facility] #deep tissue injury b/l heels #pvd #blistering Awaiting vascular. Betadine dressing left heel Heel pads b/l. Pillow under calf both legs. Will follow. xray left heel. per assistant to the dean # UTI with history f ESBL echoli consult ID switch abx to ertapinim dc Vanco follow cx and sensiticity , abx completed # Dilirious 2/2 UTI vs surgery vs medication SE , vs alzheimer vs stroke improving * consult psych * last EKG QTC 444 * , can Giv Atiavn low dose Q 6 hr as needed for agitation avoid haldol for now as QTC is borderline * started on Seraquel increased to 25 HS * head of bed elevation , aspiration precautions #fall 2/2 syncope vs dehydration vs mechanical fall vs imbalance gait VS UTI * head CT negative for acute pathology * echo reviewed EF 65 % , LVH , mild MR and TR and AR , normal LV function * bp monitor * PT eval after surgery * will benefit from JOELELN #Hypertensive , non compliant with her meds * cont valsartan 80 mg qD hold for BP below 100 * decrease norvasc to 5 mg qd hold for sytolic less than 100 * start on Torol XL 12.5 Daily per cardiology #elevated troponin likely demand ischemia , no EKG changes , * trend trop * ACS unlikely; likely demand ischemia * echo reviewed * cardiology consulted #DM , uncontrolled 2/2 non compliant , A1c 13 * last hemoglobin a1c 10.repeat 13 * currently on ISS, add levimer 8 units SQ once * hold oral agents * diabetic diet #depression with suicidal ideation * on zoloft, cont * start seraquel 25 daily HS # MVR And AR noted on Echo , follow up out pt #FEN * clinimix * Monitor lytes * Diabetic pureed diet #dVT proph:Lovenox 40 SQ daily # Full code Dispo: tele monitor will benefit from JOELLEN possible dc in AM Visit type - Emergency Visit Emergency Visit: Yes ED Registration Date: 08/30/19 Care time: The patient presented to the Emergency Department on the above date and was hospitalized for further evaluation of their emergent condition. - New Patient This patient is new to me today: No - Critical Care Critical Care patient: No ATTENDING PHYSICIAN STATEMENT I saw and evaluated the patient. I reviewed the resident's note and discussed the case with the resident. I agree with the resident's findings and plan as documented. SUBJECTIVE: OBJECTIVE: ASSESSMENT AND PLAN:
[2019-09-16 07:40] LABS: BASO % 0.9 % (0-2.0); EOS % 1.8 % (0-4.5); HEMATOCRIT 29.1 % (32.4-45.2); HEMOGLOBIN 9.5 GM/dL (10.7-15.3); LYMPH % 15.9 % (8-40); MCH 27.3 pg (25.7-33.7); MCHC 32.6 g/dl (32.0-36.0); MEAN CELL VOLUME 83.6 fl (80-96); MEAN PLT VOLUME 9.2 fl (7.5-11.1); MONO % 7.5 % (3.8-10.2); NEUT % 73.9 % (42.8-82.8); PLATELET COUNT 401 K/MM3 (134-434); RBC 3.48 M/mm3 (3.60-5.2); RDW 14.4 % (11.6-15.6); WHITE BLOOD COUNT 9.1 K/mm3 (4.0-10.0)
[2019-09-16] MEDS: INSULIN (LEVEMIR) 100 UNITS/ML UNITS SQ SCH (07:51)
[2019-09-16] MEDS: INSULIN SLIDING SCALE (NOVOLOG) 1 VIAL SQ SCH ×4 (07:52→21:59)
[2019-09-16 08:06] LABS: ALBUMIN 2.5 g/dl (3.4-5.0); BILIRUBIN,TOTAL 0.8 mg/dL (0.2-1); BLOOD UREA NITROGEN 13.2 mg/dL (7-18); CALCIUM 8.9 mg/dL (8.5-10.1); CREATININE 0.8 mg/dL (0.55-1.3); MAGNESIUM 2.4 mg/dL (1.8-2.4); PHOSPHOROUS 3.1 mg/dL (2.5-4.9); TOT PROT 6.1 g/dl (6.4-8.2)
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
--- NOTE | 2019-09-16 09:29 | PN ---
Progress Note, Physician History of Present Illness: POD#18 Right IT fx post right IM gamma nail, left acute stroke confirmed with brain MRI, more alert. No PAF on monitor yet. Sensorium much improved today, interactive, eating more. - Current Medication List Current Medications: Active Medications Acetaminophen (Tylenol -) 650 mg PO Q6H [facility] Last Admin: 09/16/19 08:11 Dose: Not Given Documented by: Amlodipine Besylate (Norvasc -) 5 mg PO DAILY [facility] Ascorbic Acid (Vitamin C -) 500 mg PO DAILY [facility] Last Admin: 09/15/19 10:19 Dose: 500 mg Documented by: Aspirin (Asa -) 81 mg PO DAILY [facility] Last Admin: 09/15/19 10:15 Dose: 81 mg Documented by: Atorvastatin Calcium (Lipitor -) 40 mg PO HS [facility] Last Admin: 09/14/19 21:54 Dose: Not Given Documented by: Docusate Sodium (Colace -) 100 mg PO BID [facility] Last Admin: 09/15/19 21:12 Dose: Not Given Documented by: Enoxaparin Sodium (Lovenox -) 40 mg SQ DAILY [facility] Last Admin: 09/15/19 10:12 Dose: 40 mg Documented by: Potassium Chloride 10 meq/ (Amino Acids) 1,005 mls @ 50 mls/hr IVPB Q24H [facility] Last Admin: 09/15/19 14:07 Dose: 50 mls/hr Documented by: Insulin Aspart (Novolog Vial Sliding Scale -) 1 vial SQ ACHS [facility]; Protocol Last Admin: 09/16/19 07:52 Dose: Not Given Documented by: Insulin Detemir (Levemir Vial) 8 units SQ AM [facility] Last Admin: 09/16/19 07:51 Dose: 8 units Documented by: Lorazepam (Ativan Injection -) 0.5 mg IM Q12H PRN PRN Reason: ANXIETY Last Admin: 09/16/19 02:19 Dose: 0.5 mg Documented by: Metoprolol Tartrate (Lopressor -) 12.5 mg PO DAILY [facility] Last Admin: 09/15/19 10:16 Dose: 12.5 mg Documented by: Multivitamins/Minerals (Infuvite Adult -) 10 ml IV DAILY [facility] Last Admin: 09/15/19 14:08 Dose: 10 ml Documented by: Naloxone HCl (Narcan -) 0.4 mg IVPUSH ONCE PRN PRN Reason: Sedation Nystatin (Nystop Powder -) 1 applic TP DAILY [facility] Last Admin: 09/15/19 10:21 Dose: 1 applic Documented by: Ondansetron HCl (Zofran Injection) 4 mg IVPUSH ONCE PRN PRN Reason: NAUSEA Quetiapine Fumarate (Seroquel -) 12.5 mg PO DAILY [facility] Last Admin: 09/15/19 10:16 Dose: 12.5 mg Documented by: Valsartan (Diovan -) 80 mg PO DAILY [facility] Last Admin: 09/15/19 10:20 Dose: 80 mg Documented by: - Objective Vital Signs: Vital Signs Temperature 98.1 F 09/16/19 06:00 Pulse Rate 73 09/16/19 06:00 Respiratory Rate 18 09/16/19 06:00 Blood Pressure 153/72 09/16/19 06:00 O2 Sat by Pulse Oximetry (%) 98 09/15/19 21:00 Constitutional: Yes: No Distress, Calm Neck: Yes: Supple Cardiovascular: Yes: Regular Rate and Rhythm Respiratory: Yes: Regular, CTA Bilaterally Gastrointestinal: Yes: Normal Bowel Sounds, Soft Edema: No Labs: CBC, BMP 09/16/19 05:39 09/16/19 05:39 INR, PTT INR 1.08 (0.83-1.09) 08/31/19 05:10 Problem List - Problems (1) Acute ischemic left MCA stroke Code(s): I63.512 - CEREB INFRC D/T UNSP OCCLS OR STENOS OF LEFT MID CEREB ART (2) Left carotid stenosis Code(s): I65.22 - OCCLUSION AND STENOSIS OF LEFT CAROTID ARTERY Assessment/Plan Problem List - Problems (1) Diabetes mellitus Code(s): E11.9 - TYPE 2 DIABETES MELLITUS WITHOUT COMPLICATIONS (2) Hip fracture, right Code(s): S72.001A - FRACTURE OF UNSP PART OF NECK OF RIGHT FEMUR, INIT (3) Mitral regurgitation Code(s): I34.0 - NONRHEUMATIC MITRAL (VALVE) INSUFFICIENCY Qualifiers: Cardiac valve disease etiology: nonrheumatic Qualified Code(s): I34.0 - Nonrheumatic mitral (valve) insufficiency (4) Aortic regurgitation Code(s): I35.1 - NONRHEUMATIC AORTIC (VALVE) INSUFFICIENCY Qualifiers: Cardiac valve disease etiology: nonrheumatic Qualified Code(s): I35.1 - Nonrheumatic aortic (valve) insufficiency (5) Hypertension Code(s): I10 - ESSENTIAL (PRIMARY) HYPERTENSION Qualifiers: Hypertension type: essential hypertension Qualified Code(s): I10 - Essential (primary) hypertension Echo (Normal LVEF, mild AR, mild MR, trace TR) Assessment/Plan 09/10/2019 Brain MRI Acute large nonhemorrhagic stroke left parieto-occipital region 08/31/2019 Severe cLVH normal LVEF 65%, mild MR, AR, tr TR 1. Acute nonhemorrhagic left parieto-occipital stroke -> left MCA, M2 branch 2. Left critical carotid stenosis not ideal candidate for intervention currently 3. Post fall resulting in right intra-trochanteric fracture POD#18 post right intra-medullary gamma nail 4. Coronary artery disease with evidence of demand ischemia angina pectoris 5. Probable diastolic left ventricular dysfunction with clinical class 0 [employer] classification left ventricular failure 6. HTN 7. Diabetes Mellitus 8. Dementia with delirium -> acute stroke 9. Urinary tract infection post abx course PLAN: 1. Continue Diovan 80 qd. ASA 81 qd, media monitor r/o PAF 2. Continue Amlodipine 5 qd, Toprol-XL 12.5 qd, Lipitor 40 qd for LDL<70 (current LDL 96) 3. Reorient patient d/w family members 4. Dysphagia diet per S&S, PT as tolerated 5. DVT prophylaxis
[2019-09-16] MEDS ORDERED: PT OWN MED DRAWER 7, Y5N ONE ×2 (09:36→11:50)
[2019-09-16] MEDS: ASPIRIN 81 MG CHEWABLE TABLETS PO SCH (11:10)
[2019-09-16] MEDS: METOPROLOL TARTRATE 25 MG TABLET (FP) PO SCH (11:11)
[2019-09-16] MEDS: ASCORBIC ACID 500 MG TABLET (FP) PO SCH (11:13)
[2019-09-16] MEDS: amLODIPine BESYLATE 5 MG TABLET (FP) PO SCH (11:14)
[2019-09-16] MEDS: VALSARTAN 80 MG TABLET (UD) PO SCH (11:14)
[2019-09-16] MEDS: QUEtiapine FUMARATE 25 MG TABLET PO SCH (11:15)
[2019-09-16] MEDS: ENOXAPARIN NA (PORCINE) 40 MG/0.4 ML DISP.SYRIN SQ SCH (11:19)
[2019-09-16] MEDS: DOCUSATE SODIUM 100 MG CAPSULE (FP) PO SCH ×2 (11:25→21:55)
[2019-09-16] MEDS: NYSTATIN POWDER 100,000 UNITS/GM - 15 GM TOPICAL POWDER TP SCH (11:26)
[2019-09-16] MEDS: POTASSIUM CHLORIDE 10 MEQ in AMINO ACIDS 4.25%/D5W 1,000 ML IVPB SCH (13:33)
[2019-09-16] MEDS: MULTIVIT INJ. ADULT COMBO WITH VIT K 1 COMBO 10 ML VIAL IV SCH (13:34)
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
--- NOTE | 2019-09-16 14:03 | PN ---
Progress Note, Physician History of Present Illness: Pt seen and examined at bedside. She is confused and still not eating. - Current Medication List Current Medications: Active Medications Acetaminophen (Tylenol -) 650 mg PO Q6H [facility] Last Admin: 09/16/19 08:11 Dose: Not Given Documented by: Amlodipine Besylate (Norvasc -) 5 mg PO DAILY [facility] Last Admin: 09/16/19 11:14 Dose: 5 mg Documented by: Ascorbic Acid (Vitamin C -) 500 mg PO DAILY [facility] Last Admin: 09/16/19 11:13 Dose: 500 mg Documented by: Aspirin (Asa -) 81 mg PO DAILY [facility] Last Admin: 09/16/19 11:10 Dose: 81 mg Documented by: Atorvastatin Calcium (Lipitor -) 40 mg PO HS [facility] Last Admin: 09/14/19 21:54 Dose: Not Given Documented by: Docusate Sodium (Colace -) 100 mg PO BID [facility] Last Admin: 09/16/19 11:25 Dose: Not Given Documented by: Enoxaparin Sodium (Lovenox -) 40 mg SQ DAILY [facility] Last Admin: 09/16/19 11:19 Dose: 40 mg Documented by: Potassium Chloride 10 meq/ (Amino Acids) 1,005 mls @ 50 mls/hr IVPB Q24H [facility] Last Admin: 09/16/19 13:33 Dose: 50 mls/hr Documented by: Insulin Aspart (Novolog Vial Sliding Scale -) 1 vial SQ ACHS [facility]; Protocol Last Admin: 09/16/19 11:25 Dose: Not Given Documented by: Insulin Detemir (Levemir Vial) 8 units SQ AM [facility] Last Admin: 09/16/19 07:51 Dose: 8 units Documented by: Lorazepam (Ativan Injection -) 0.5 mg IM Q12H PRN PRN Reason: ANXIETY Last Admin: 09/16/19 02:19 Dose: 0.5 mg Documented by: Metoprolol Tartrate (Lopressor -) 12.5 mg PO DAILY [facility] Last Admin: 09/16/19 11:11 Dose: 12.5 mg Documented by: Multivitamins/Minerals (Infuvite Adult -) 10 ml IV DAILY [facility] Last Admin: 09/16/19 13:34 Dose: 10 ml Documented by: Naloxone HCl (Narcan -) 0.4 mg IVPUSH ONCE PRN PRN Reason: Sedation Nystatin (Nystop Powder -) 1 applic TP DAILY [facility] Last Admin: 09/16/19 11:26 Dose: 1 applic Documented by: Ondansetron HCl (Zofran Injection) 4 mg IVPUSH ONCE PRN PRN Reason: NAUSEA Quetiapine Fumarate (Seroquel -) 12.5 mg PO DAILY [facility] Last Admin: 09/16/19 11:15 Dose: 12.5 mg Documented by: Valsartan (Diovan -) 80 mg PO DAILY [facility] Last Admin: 09/16/19 11:14 Dose: 80 mg Documented by: - Objective Vital Signs: Vital Signs Temperature 98.8 F 09/16/19 10:00 Pulse Rate 65 09/16/19 10:00 Respiratory Rate 18 09/16/19 10:00 Blood Pressure 133/55 L 09/16/19 10:00 O2 Sat by Pulse Oximetry (%) 95 09/16/19 09:00 Constitutional: Yes: Calm Eyes: Yes: Conjunctiva Clear HENT: Yes: Atraumatic Neck: Yes: Supple Cardiovascular: Yes: S1, S2 Respiratory: Yes: CTA Bilaterally Gastrointestinal: Yes: Soft Genitourinary: Yes: Incontinence Musculoskeletal: Yes: WNL Edema: No Neurological: Yes: Confusion Labs: CBC, BMP 09/16/19 05:39 09/16/19 05:39 INR, PTT INR 1.08 (0.83-1.09) 08/31/19 05:10 Problem List - Problems (1) Hip fracture, right Code(s): S72.001A - FRACTURE OF UNSP PART OF NECK OF RIGHT FEMUR, INIT (2) Hypertension Code(s): I10 - ESSENTIAL (PRIMARY) HYPERTENSION Qualifiers: Hypertension type: essential hypertension Qualified Code(s): I10 - Essential (primary) hypertension Assessment/Plan Current Medications Generic Name Dose Route Start Last Admin Trade Name Freq PRN Reason Stop Dose Admin Acetaminophen 650 mg 09/01/19 13:30 09/16/19 08:11 Tylenol - PO Not Given Q6H [facility] Amlodipine Besylate 5 mg 09/16/19 10:00 09/16/19 11:14 Norvasc - PO 5 mg DAILY [facility] Administration Ascorbic Acid 500 mg 09/15/19 10:00 09/16/19 11:13 Vitamin C - PO 500 mg DAILY [facility] Administration Aspirin 81 mg 09/10/19 14:30 09/16/19 11:10 Asa - PO 81 mg DAILY [facility] Administration Atorvastatin Calcium 40 mg 09/10/19 22:00 09/14/19 21:54 Lipitor - PO Not Given HS [facility] Docusate Sodium 100 mg 09/01/19 22:00 09/16/19 11:25 Colace - PO Not Given BID [facility] Enoxaparin Sodium 40 mg 09/02/19 10:00 09/16/19 11:19 Lovenox - SQ 40 mg DAILY [facility] Administration Potassium Chloride 10 meq/ 1,005 mls @ 50 mls/hr 09/15/19 12:00 09/16/19 13:33 Amino Acids IVPB 50 mls/hr Q24H [facility] Administration Insulin Aspart 1 vial 09/01/19 16:30 09/16/19 11:25 Novolog Vial Sliding Scale - SQ Not Given ACHS [facility] Protocol Insulin Detemir 8 units 09/05/19 07:57 09/16/19 07:51 Levemir Vial SQ 8 units AM [facility] Administration Lorazepam 0.5 mg 09/15/19 18:34 09/16/19 02:19 Ativan Injection - IM 0.5 mg Q12H PRN Administration ANXIETY Metoprolol Tartrate 12.5 mg 09/12/19 10:00 09/16/19 11:11 Lopressor - PO 12.5 mg DAILY [facility] Administration Multivitamins/Minerals 10 ml 09/15/19 13:00 09/16/19 13:34 Infuvite Adult - IV 10 ml DAILY [facility] Administration Naloxone HCl 0.4 mg 09/01/19 13:21 Narcan - IVPUSH ONCE PRN Sedation Nystatin 1 applic 09/08/19 10:00 09/16/19 11:26 Nystop Powder - TP 1 applic DAILY [facility] Administration Ondansetron HCl 4 mg 09/01/19 13:21 Zofran Injection IVPUSH ONCE PRN NAUSEA Quetiapine Fumarate 12.5 mg 09/04/19 12:15 09/16/19 11:15 Seroquel - PO 12.5 mg DAILY [facility] Administration Valsartan 80 mg 09/02/19 10:00 09/16/19 11:14 Diovan - PO 80 mg DAILY [facility] Administration Impression 1. azotemia/dehydration 2. dm 3. hip fracture 4. htn 5. s/p fall 6. UTI 7. hypernatremia 8. CVA Plan - con clinimix for now - monitor lytes - psych follow up to adjust meds - encourage po intake - potassium is improved
--- NOTE | 2019-09-16 14:04 | EKG ---
Test Reason : Blood Pressure : / mmHG Vent. Rate : 074 BPM Atrial Rate : 074 BPM P-R Int : 138 ms QRS Dur : 096 ms QT Int : 410 ms P-R-T Axes : 063 -46 089 degrees QTc Int : 455 ms POOR DATA QUALITY, INTERPRETATION MAY BE ADVERSELY AFFECTED NORMAL SINUS RHYTHM RSR' OR QR PATTERN IN V1 SUGGESTS RIGHT VENTRICULAR CONDUCTION DELAY LEFT ANTERIOR FASCICULAR BLOCK LEFT VENTRICULAR HYPERTROPHY WITH REPOLARIZATION ABNORMALITY ABNORMAL ECG WHEN COMPARED WITH ECG OF 11-SEP-2019 12:25, ST NOW DEPRESSED IN ANTERIOR LEADS NONSPECIFIC T WAVE ABNORMALITY NO LONGER EVIDENT IN INFERIOR LEADS T WAVE INVERSION LESS EVIDENT IN LATERAL LEADS Confirmed by PETE ERICKSON MD ([id number]) on 09/16/2019 2:03:35 PM Referred By: Confirmed By:PETE ERICKSON MD
--- NOTE | 2019-09-16 16:05 | PN ---
Progress Note, ORTHOTIC/PROSTHETIC CLINICIAN - Note Progress Note: Selected Entries 09/16/19 09/16/19 09/16/19 02:00 06:00 10:00 Breakfast Lunch Temperature 98.3 F 98.1 F 98.8 F 09/16/19 09/16/19 09/16/19 10:54 13:45 14:26 Breakfast 25% Lunch 25% Temperature 98.3 F Laboratory Tests 09/16/19 05:39 WBC 9.1
--- NOTE | 2019-09-16 21:16 | PN ---
Mental Health Exam - Mental Status Exam Alert and Oriented to: Person (disorientated time bY#3) Cognitive Function: Impaired Patient Appearance: Unkempt (wearing mittens on both hands. ) Mood: Withdrawn Affect: Constricted Patient Behavior: Sedated, Fatigued, Resitive to Care Speech Pattern: Aphasic Thought Process: Disoriented Sleep: Well Gait/Station: Deferred Additional Comments: This is a 88 yo female seen sedated in bed this evening. She is not easily aroused, feet eleevated, spoke with RN on unit. She has a history of depression, HTN, Iddm, with heel pressure ulcers. Consult called for dr Galindo for agressive and fighting. Appaently pulled out IV line. Client recieved seroquel 12.5 mg this am. Client is on IV K infusing in bed. Head CT shows large infaract parietal region, right side fall with fracture. Alzheimers v stroke improved, EKG 444, agree with NO HALdol. plan:: Hold seroquel tonight and always if sedated. Seroquel 12.5 in divided doses is better option. Keep a secoundary does as a PO PRN>. Ativan 0.25mg po prn for extreme agitation only.
[2019-09-16] MEDS: ATORVASTATIN CA 40 MG TABLET (FP) PO SCH (21:55)
[2019-09-16] MEDS ORDERED: OLANZapine 2.5 MG TABLET PO SCH (22:00)
[2019-09-16] MEDS ORDERED: QUEtiapine FUMARATE 25 MG TABLET PO SCH ×2 (22:00)
[2019-09-17] MEDS: ACETAMINOPHEN 325 MG TABLET (FP) PO SCH ×3 (02:00→14:00)
[2019-09-17 06:49] LABS: BASO % 0.8 % (0-2.0); EOS % 2.1 % (0-4.5); HEMATOCRIT 27.4 % (32.4-45.2); HEMOGLOBIN 9.1 GM/dL (10.7-15.3); MCH 27.6 pg (25.7-33.7); MCHC 33.4 g/dl (32.0-36.0); MEAN CELL VOLUME 82.7 fl (80-96); MEAN PLT VOLUME 8.9 fl (7.5-11.1); MONO % 8.7 % (3.8-10.2); NEUT % 67.4 % (42.8-82.8); PLATELET COUNT 362 K/MM3 (134-434); RBC 3.31 M/mm3 (3.60-5.2); RDW 14.2 % (11.6-15.6); WHITE BLOOD COUNT 7.8 K/mm3 (4.0-10.0)
[2019-09-17] MEDS: INSULIN (LEVEMIR) 100 UNITS/ML UNITS SQ SCH (06:50)
[2019-09-17 07:13] LABS: ALBUMIN 2.3 g/dl (3.4-5.0); BILIRUBIN,TOTAL 0.5 mg/dL (0.2-1); BLOOD UREA NITROGEN 17.6 mg/dL (7-18); CALCIUM 8.4 mg/dL (8.5-10.1); CREATININE 0.8 mg/dL (0.55-1.3); PHOSPHOROUS 2.5 mg/dL (2.5-4.9); POTASSIUM 3.9 mmol/L (3.5-5.1); TOT PROT 5.8 g/dl (6.4-8.2)
--- NOTE | 2019-09-17 07:50 | FALL ---
Fall Exam - Event Witnessed fall: No Location of Fall: Patient Room Fall from: Bed - Pre-Fall Mental Status: Alert, Disoriented, Uncooperative Current Medications: Current Medications Generic Name Dose Route Start Last Admin Trade Name Freq PRN Reason Stop Dose Admin Acetaminophen 650 mg 09/01/19 13:30 09/17/19 02:00 Tylenol - PO Not Given Q6H [facility] Amlodipine Besylate 5 mg 09/16/19 10:00 09/16/19 11:14 Norvasc - PO 5 mg DAILY [facility] Administration Ascorbic Acid 500 mg 09/15/19 10:00 09/16/19 11:13 Vitamin C - PO 500 mg DAILY [facility] Administration Aspirin 81 mg 09/10/19 14:30 09/16/19 11:10 Asa - PO 81 mg DAILY [facility] Administration Atorvastatin Calcium 40 mg 09/10/19 22:00 09/16/19 21:55 Lipitor - PO Not Given HS [facility] Docusate Sodium 100 mg 09/01/19 22:00 09/16/19 21:55 Colace - PO Not Given BID [facility] Enoxaparin Sodium 40 mg 09/02/19 10:00 09/16/19 11:19 Lovenox - SQ 40 mg DAILY [facility] Administration Potassium Chloride 10 meq/ 1,005 mls @ 50 mls/hr 09/15/19 12:00 09/16/19 13:33 Amino Acids IVPB 50 mls/hr Q24H [facility] Administration Insulin Aspart 1 vial 09/01/19 16:30 09/16/19 21:59 Novolog Vial Sliding Scale - SQ Not Given ACHS [facility] Protocol Insulin Detemir 8 units 09/05/19 07:57 09/16/19 07:51 Levemir Vial SQ 8 units AM [facility] Administration Lorazepam 0.5 mg 09/15/19 18:34 09/16/19 13:55 Ativan Injection - IM 0.5 mg Q12H PRN Administration ANXIETY Lorazepam 0.5 mg 09/17/19 07:46 Ativan Injection - IVPUSH 09/17/19 07:47 ONCE ONE Metoprolol Tartrate 12.5 mg 09/12/19 10:00 09/16/19 11:11 Lopressor - PO 12.5 mg DAILY [facility] Administration Multivitamins/Minerals 10 ml 09/15/19 13:00 09/16/19 13:34 Infuvite Adult - IV 10 ml DAILY [facility] Administration Naloxone HCl 0.4 mg 09/01/19 13:21 Narcan - IVPUSH ONCE PRN Sedation Nystatin 1 applic 09/08/19 10:00 09/16/19 11:26 Nystop Powder - TP 1 applic DAILY [facility] Administration Ondansetron HCl 4 mg 09/01/19 13:21 Zofran Injection IVPUSH ONCE PRN [facility] Quetiapine Fumarate 25 mg 09/16/19 22:00 09/16/19 21:56 Seroquel - PO Not Given HS [facility] Valsartan 80 mg 09/02/19 10:00 09/16/19 11:14 Diovan - PO 80 mg DAILY [facility] Administration - Post-Fall Treatment: None Vital Signs: Vital Signs Temperature 98.2 F 09/17/19 06:00 Pulse Rate 64 09/17/19 06:00 Respiratory Rate 18 09/17/19 06:00 Blood Pressure 143/57 L 09/17/19 06:00 O2 Sat by Pulse Oximetry (%) 94 L 09/16/19 21:00 Rapid response called around 7:30 AM Upon presentation, pt found lying on floor altered, screaming. VS: 167/107, 93, 94% GENERAL:awake alert lethargic Per chart review, pt is usually confused and oriented X1. Cardiac- RRR, normal s1s2 Lung- CTA b/l lexx on rt hip s/p orif, wrist restraints in place b/l deep tissue injury Impression: s/p fall likely due to confusion Plan: Fall risk protocol Full body imaging to assess for fx neuro checks per protocol primary team notified ortho team notified but awaiting response Identify factors for HIGH RISK for Head Injury: Pt on anticoagulant
[2019-09-17] MEDS: INSULIN SLIDING SCALE (NOVOLOG) 1 VIAL SQ SCH ×3 (07:56→17:17)
[2019-09-17] MEDS ORDERED: LORazepam 2 MG/ML SDV VIAL IVPUSH ONE (08:00)
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
--- NOTE | 2019-09-17 09:28 | PN ---
Progress Note (short form) - Note Progress Note: S/P fall this am, disoriented; no cardiac events; hemodynamically stable family at bedside ECG; NSR, IRBBB/LAD, no new changes CBC WBC 7.8 K/mm3 (4.0-10.0) 09/17/19 06:10 Corrected WBC (auto) Cancelled 09/02/19 05:25 RBC 3.31 M/mm3 (3.60-5.2) L 09/17/19 06:10 Hgb 9.1 GM/dL (10.7-15.3) L 09/17/19 06:10 Hct 27.4 % (32.4-45.2) L 09/17/19 06:10 MCV 82.7 fl (80-96) 09/17/19 06:10 MCH 27.6 pg (25.7-33.7) 09/17/19 06:10 MCHC 33.4 g/dl (32.0-36.0) 09/17/19 06:10 RDW 14.2 % (11.6-15.6) 09/17/19 06:10 Plt Count 362 K/MM3 (134-434) 09/17/19 06:10 MPV 8.9 fl (7.5-11.1) 09/17/19 06:10 Absolute Neuts (auto) 5.3 K/mm3 (1.5-8.0) 09/17/19 06:10 Neutrophils % 67.4 % (42.8-82.8) 09/17/19 06:10 Lymphocytes % 21.0 % (8-40) D 09/17/19 06:10 Monocytes % 8.7 % (3.8-10.2) 09/17/19 06:10 Eosinophils % 2.1 % (0-4.5) 09/17/19 06:10 Basophils % 0.8 % (0-2.0) 09/17/19 06:10 Nucleated RBC % 0 % (0-0) 09/17/19 06:10 Platelet Estimate Cancelled 09/02/19 05:25 Platelet Comment Cancelled 09/02/19 05:25 CMP Sodium 142 mmol/L (136-145) 09/17/19 06:10 Potassium 3.9 mmol/L (3.5-5.1) 09/17/19 06:10 Chloride 109 mmol/L (98-107) H 09/17/19 06:10 Carbon Dioxide 26 mmol/L (21-32) 09/17/19 06:10 Anion Gap 7 MMOL/L (8-16) L 09/17/19 06:10 BUN 17.6 mg/dL (7-18) 09/17/19 06:10 Creatinine 0.8 mg/dL (0.55-1.3) 09/17/19 06:10 Est GFR (CKD-EPI)AfAm 77.37 09/17/19 06:10 Est GFR (CKD-EPI)NonAf 66.76 09/17/19 06:10 POC Glucometer 204 UNITS (80-120) 09/17/19 06:04 Random Glucose 211 mg/dL (74-106) H 09/17/19 06:10 Hemoglobin A1c % 13.0 % (4.2-6.3) H 08/31/19 06:15 Calcium 8.4 mg/dL (8.5-10.1) L 09/17/19 06:10 Phosphorus 2.5 mg/dL (2.5-4.9) 09/17/19 06:10 Magnesium 2.0 mg/dL (1.8-2.4) 09/17/19 06:10 Total Bilirubin 0.5 mg/dL (0.2-1) 09/17/19 06:10 AST 19 U/L (15-37) 09/17/19 06:10 ALT 20 U/L (13-61) 09/17/19 06:10 Alkaline Phosphatase 101 U/L (45-117) 09/17/19 06:10 Creatine Kinase 107 U/L (26-192) 09/09/19 10:03 Creatine Kinase Index 0.9 % (0.0-5.0) 09/01/19 07:20 CK-MB (CK-2) 3.6 ng/mL (0.5-3.6) 09/01/19 07:20 Troponin I 0.08 ng/ml (0.00-0.05) H 09/03/19 06:40 B-Natriuretic Peptide 1288.2 pg/ml (5-450) H 08/31/19 05:10 Total Protein 5.8 g/dl (6.4-8.2) L 09/17/19 06:10 Albumin 2.3 g/dl (3.4-5.0) L 09/17/19 06:10 Triglycerides 130 mg/dL (0-150) 08/31/19 05:10 Cholesterol 177 mg/dL (50-200) 08/31/19 05:10 Total LDL Cholesterol 96 mg/dL (5-100) 08/31/19 05:10 HDL Cholesterol 60 mg/dL (40-60) 08/31/19 05:10 Serotonin 27 ng/mL (0-420) 09/09/19 10:03 TSH 0.70 uIU/ml (0.358-3.74) 08/30/19 13:10 Vital Signs Temperature 98.2 F 09/17/19 06:00 Pulse Rate 64 09/17/19 06:00 Respiratory Rate 18 09/17/19 06:00 Blood Pressure 143/57 L 09/17/19 06:00 O2 Sat by Pulse Oximetry (%) 94 L 09/16/19 21:00 Assessment/Plan 09/10/2019 Brain MRI Acute large nonhemorrhagic stroke left parieto-occipital region 08/31/2019 Severe cLVH normal LVEF 65%, mild MR, AR, tr TR 1. Acute nonhemorrhagic left parieto-occipital stroke -> left MCA, M2 branch 2. Left critical carotid stenosis not ideal candidate for intervention currently 3. Post fall resulting in right intra-trochanteric fracture POD#18 post right intra-medullary gamma nail 4. Coronary artery disease with evidence of demand ischemia angina pectoris 5. Probable diastolic left ventricular dysfunction with clinical class 0 [employer] classification left ventricular failure 6. HTN 7. Diabetes Mellitus 8. Dementia with delirium -> acute stroke 9. Urinary tract infection post abx course 10.Carotid stenosis 9(ot a candidate for intervention per surgery) PLAN: -No changes in cardiac status , cont same :anti hypertensive,ASA,statin Active Medications Acetaminophen (Tylenol -) 650 mg PO Q6H [facility] Last Admin: 09/17/19 02:00 Dose: Not Given Documented by: Amlodipine Besylate (Norvasc -) 5 mg PO DAILY [facility] Last Admin: 09/16/19 11:14 Dose: 5 mg Documented by: Ascorbic Acid (Vitamin C -) 500 mg PO DAILY [facility] Last Admin: 09/16/19 11:13 Dose: 500 mg Documented by: Aspirin (Asa -) 81 mg PO DAILY [facility] Last Admin: 09/16/19 11:10 Dose: 81 mg Documented by: Atorvastatin Calcium (Lipitor -) 40 mg PO HS [facility] Last Admin: 09/16/19 21:55 Dose: Not Given Documented by: Docusate Sodium (Colace -) 100 mg PO BID [facility] Last Admin: 09/16/19 21:55 Dose: Not Given Documented by: Enoxaparin Sodium (Lovenox -) 40 mg SQ DAILY [facility] Last Admin: 09/16/19 11:19 Dose: 40 mg Documented by: Potassium Chloride 10 meq/ (Amino Acids) 1,005 mls @ 50 mls/hr IVPB Q24H [facility] Last Admin: 09/16/19 13:33 Dose: 50 mls/hr Documented by: Insulin Aspart (Novolog Vial Sliding Scale -) 1 vial SQ ACHS [facility]; Protocol Last Admin: 09/17/19 07:56 Dose: Not Given Documented by: Insulin Detemir (Levemir Vial) 8 units SQ AM [facility] Last Admin: 09/17/19 06:50 Dose: 8 units Documented by: Lorazepam (Ativan Injection -) 0.5 mg IM Q12H PRN PRN Reason: ANXIETY Last Admin: 09/16/19 13:55 Dose: 0.5 mg Documented by: Metoprolol Tartrate (Lopressor -) 12.5 mg PO DAILY [facility] Last Admin: 09/16/19 11:11 Dose: 12.5 mg Documented by: Multivitamins/Minerals (Infuvite Adult -) 10 ml IV DAILY [facility] Last Admin: 09/16/19 13:34 Dose: 10 ml Documented by: Naloxone HCl (Narcan -) 0.4 mg IVPUSH ONCE PRN PRN Reason: Sedation Nystatin (Nystop Powder -) 1 applic TP DAILY [facility] Last Admin: 09/16/19 11:26 Dose: 1 applic Documented by: Ondansetron HCl (Zofran Injection) 4 mg IVPUSH ONCE PRN PRN Reason: NAUSEA Quetiapine Fumarate (Seroquel -) 25 mg PO HS [facility] Last Admin: 09/16/19 21:56 Dose: Not Given Documented by: Valsartan (Diovan -) 80 mg PO DAILY [facility] Last Admin: 09/16/19 11:14 Dose: 80 mg Documented by:
[2019-09-17] MEDS ORDERED: PT OWN MED DRAWER 7, Y5N ONE (10:58)
--- NOTE | 2019-09-17 11:01 | EKG ---
Test Reason : Blood Pressure : / mmHG Vent. Rate : 065 BPM Atrial Rate : 065 BPM P-R Int : 146 ms QRS Dur : 110 ms QT Int : 428 ms P-R-T Axes : 062 -44 079 degrees QTc Int : 445 ms NORMAL SINUS RHYTHM LEFT AXIS DEVIATION INCOMPLETE RIGHT BUNDLE BRANCH BLOCK LEFT VENTRICULAR HYPERTROPHY WITH REPOLARIZATION ABNORMALITY ABNORMAL ECG Confirmed by MAHAMED COLLIER MD ([id number]) on 09/17/2019 11:01:31 AM Referred By: SIL AMES Confirmed By:MAHAMED COLLIER MD
[2019-09-17] MEDS: VALSARTAN 80 MG TABLET (UD) PO SCH (11:08)
[2019-09-17] MEDS: METOPROLOL TARTRATE 25 MG TABLET (FP) PO SCH (11:09)
[2019-09-17] MEDS: amLODIPine BESYLATE 5 MG TABLET (FP) PO SCH (11:10)
[2019-09-17] MEDS: ASCORBIC ACID 500 MG TABLET (FP) PO SCH (11:11)
[2019-09-17] MEDS: ASPIRIN 81 MG CHEWABLE TABLETS PO SCH (11:12)
[2019-09-17] MEDS: NYSTATIN POWDER 100,000 UNITS/GM - 15 GM TOPICAL POWDER TP SCH (11:16)
[2019-09-17] MEDS: ENOXAPARIN NA (PORCINE) 40 MG/0.4 ML DISP.SYRIN SQ SCH (11:16)
[2019-09-17] MEDS: DOCUSATE SODIUM 100 MG CAPSULE (FP) PO SCH (11:16)
--- NOTE | 2019-09-17 12:24 | PN ---
Progress Note, Physician History of Present Illness: FU B/L heels. - Current Medication List Current Medications: Active Medications Acetaminophen (Tylenol -) 650 mg PO Q6H [facility] Last Admin: 09/17/19 11:35 Dose: Not Given Documented by: Amlodipine Besylate (Norvasc -) 5 mg PO DAILY [facility] Last Admin: 09/17/19 11:10 Dose: 5 mg Documented by: Ascorbic Acid (Vitamin C -) 500 mg PO DAILY [facility] Last Admin: 09/17/19 11:11 Dose: 500 mg Documented by: Aspirin (Asa -) 81 mg PO DAILY [facility] Last Admin: 09/17/19 11:12 Dose: 81 mg Documented by: Atorvastatin Calcium (Lipitor -) 40 mg PO HS [facility] Last Admin: 09/16/19 21:55 Dose: Not Given Documented by: Docusate Sodium (Colace -) 100 mg PO BID [facility] Last Admin: 09/17/19 11:16 Dose: Not Given Documented by: Enoxaparin Sodium (Lovenox -) 40 mg SQ DAILY [facility] Last Admin: 09/17/19 11:16 Dose: 40 mg Documented by: Potassium Chloride 10 meq/ (Amino Acids) 1,005 mls @ 50 mls/hr IVPB Q24H [facility] Last Admin: 09/16/19 13:33 Dose: 50 mls/hr Documented by: Insulin Aspart (Novolog Vial Sliding Scale -) 1 vial SQ ACHS [facility]; Protocol Last Admin: 09/17/19 11:21 Dose: Not Given Documented by: Insulin Detemir (Levemir Vial) 8 units SQ AM [facility] Last Admin: 09/17/19 06:50 Dose: 8 units Documented by: Lorazepam (Ativan Injection -) 0.5 mg IM Q12H PRN PRN Reason: ANXIETY Last Admin: 09/16/19 13:55 Dose: 0.5 mg Documented by: Metoprolol Tartrate (Lopressor -) 12.5 mg PO DAILY [facility] Last Admin: 09/17/19 11:09 Dose: 12.5 mg Documented by: Multivitamins/Minerals (Infuvite Adult -) 10 ml IV DAILY [facility] Last Admin: 09/16/19 13:34 Dose: 10 ml Documented by: Naloxone HCl (Narcan -) 0.4 mg IVPUSH ONCE PRN PRN Reason: Sedation Nystatin (Nystop Powder -) 1 applic TP DAILY [facility] Last Admin: 09/17/19 11:16 Dose: 1 applic Documented by: Ondansetron HCl (Zofran Injection) 4 mg IVPUSH ONCE PRN PRN Reason: NAUSEA Quetiapine Fumarate (Seroquel -) 25 mg PO HS [facility] Last Admin: 09/16/19 21:56 Dose: Not Given Documented by: Valsartan (Diovan -) 80 mg PO DAILY [facility] Last Admin: 09/17/19 11:08 Dose: 80 mg Documented by: - Objective Vital Signs: Vital Signs Temperature 98.0 F 09/17/19 12:17 Pulse Rate 93 H 09/17/19 12:17 Respiratory Rate 18 09/17/19 12:17 Blood Pressure 167/107 H 09/17/19 12:17 O2 Sat by Pulse Oximetry (%) 94 L 09/16/19 21:00 Extremities: Yes: Other (+improved heel DTI wound right, +slowly improving heel left with mild blistering non infected appearance and fluctuance noted,) Labs: CBC, BMP 09/17/19 06:10 09/17/19 06:10 INR, PTT INR 1.08 (0.83-1.09) 08/31/19 05:10 Assessment/Plan deep tissue injury b/l heels pvd blistering improved Continue Betadine dressing left heel. Heel pads b/l. Pillow under calf both legs. Reviewed xrays no evidence of OM. Pt to follow up in [facility]. Family present throughout visit. Patient being dc today. Sister and daughter made aware of tx plan. Brother in law present as well.
--- NOTE | 2019-09-17 14:07 | PN ---
Progress Note, Physician History of Present Illness: Pt seen and examined at bedside. She remains confused and easily agitated. PO intake remains poor. - Current Medication List Current Medications: Active Medications Acetaminophen (Tylenol -) 650 mg PO Q6H [facility] Last Admin: 09/17/19 11:35 Dose: Not Given Documented by: Amlodipine Besylate (Norvasc -) 5 mg PO DAILY [facility] Last Admin: 09/17/19 11:10 Dose: 5 mg Documented by: Ascorbic Acid (Vitamin C -) 500 mg PO DAILY [facility] Last Admin: 09/17/19 11:11 Dose: 500 mg Documented by: Aspirin (Asa -) 81 mg PO DAILY [facility] Last Admin: 09/17/19 11:12 Dose: 81 mg Documented by: Atorvastatin Calcium (Lipitor -) 40 mg PO HS [facility] Last Admin: 09/16/19 21:55 Dose: Not Given Documented by: Docusate Sodium (Colace -) 100 mg PO BID [facility] Last Admin: 09/17/19 11:16 Dose: Not Given Documented by: Enoxaparin Sodium (Lovenox -) 40 mg SQ DAILY [facility] Last Admin: 09/17/19 11:16 Dose: 40 mg Documented by: Potassium Chloride 10 meq/ (Amino Acids) 1,005 mls @ 50 mls/hr IVPB Q24H [facility] Last Admin: 09/16/19 13:33 Dose: 50 mls/hr Documented by: Insulin Aspart (Novolog Vial Sliding Scale -) 1 vial SQ ACHS [facility]; Protocol Last Admin: 09/17/19 11:21 Dose: Not Given Documented by: Insulin Detemir (Levemir Vial) 8 units SQ AM [facility] Last Admin: 09/17/19 06:50 Dose: 8 units Documented by: Lorazepam (Ativan Injection -) 0.5 mg IM Q12H PRN PRN Reason: ANXIETY Last Admin: 09/16/19 13:55 Dose: 0.5 mg Documented by: Metoprolol Tartrate (Lopressor -) 12.5 mg PO DAILY [facility] Last Admin: 09/17/19 11:09 Dose: 12.5 mg Documented by: Multivitamins/Minerals (Infuvite Adult -) 10 ml IV DAILY [facility] Last Admin: 09/16/19 13:34 Dose: 10 ml Documented by: Naloxone HCl (Narcan -) 0.4 mg IVPUSH ONCE PRN PRN Reason: Sedation Nystatin (Nystop Powder -) 1 applic TP DAILY [facility] Last Admin: 09/17/19 11:16 Dose: 1 applic Documented by: Ondansetron HCl (Zofran Injection) 4 mg IVPUSH ONCE PRN PRN Reason: NAUSEA Quetiapine Fumarate (Seroquel -) 25 mg PO HS [facility] Last Admin: 09/16/19 21:56 Dose: Not Given Documented by: Valsartan (Diovan -) 80 mg PO DAILY [facility] Last Admin: 09/17/19 11:08 Dose: 80 mg Documented by: - Objective Vital Signs: Vital Signs Temperature 98.0 F 09/17/19 12:17 Pulse Rate 93 H 09/17/19 12:17 Respiratory Rate 18 09/17/19 12:17 Blood Pressure 167/107 H 09/17/19 12:17 O2 Sat by Pulse Oximetry (%) 94 L 09/17/19 09:00 Constitutional: Yes: Calm Eyes: Yes: Conjunctiva Clear HENT: Yes: Atraumatic Neck: Yes: Supple Cardiovascular: Yes: S1, S2 Respiratory: Yes: CTA Bilaterally Gastrointestinal: Yes: Soft Genitourinary: Yes: Incontinence Edema: No Neurological: Yes: Confusion Labs: CBC, BMP 09/17/19 06:10 09/17/19 06:10 INR, PTT INR 1.08 (0.83-1.09) 08/31/19 05:10 Problem List - Problems (1) Hip fracture, right Code(s): S72.001A - FRACTURE OF UNSP PART OF NECK OF RIGHT FEMUR, INIT (2) Hypertension Code(s): I10 - ESSENTIAL (PRIMARY) HYPERTENSION Qualifiers: Hypertension type: essential hypertension Qualified Code(s): I10 - Essential (primary) hypertension Assessment/Plan Current Medications Generic Name Dose Route Start Last Admin Trade Name Freq PRN Reason Stop Dose Admin Acetaminophen 650 mg 09/01/19 13:30 09/17/19 11:35 Tylenol - PO Not Given Q6H [facility] Amlodipine Besylate 5 mg 09/16/19 10:00 09/17/19 11:10 Norvasc - PO 5 mg DAILY [facility] Administration Ascorbic Acid 500 mg 09/15/19 10:00 09/17/19 11:11 Vitamin C - PO 500 mg DAILY [facility] Administration Aspirin 81 mg 09/10/19 14:30 09/17/19 11:12 Asa - PO 81 mg DAILY [facility] Administration Atorvastatin Calcium 40 mg 09/10/19 22:00 09/16/19 21:55 Lipitor - PO Not Given HS [facility] Docusate Sodium 100 mg 09/01/19 22:00 09/17/19 11:16 Colace - PO Not Given BID [facility] Enoxaparin Sodium 40 mg 09/02/19 10:00 09/17/19 11:16 Lovenox - SQ 40 mg DAILY [facility] Administration Potassium Chloride 10 meq/ 1,005 mls @ 50 mls/hr 09/15/19 12:00 09/16/19 13:33 Amino Acids IVPB 50 mls/hr Q24H [facility] Administration Insulin Aspart 1 vial 09/01/19 16:30 09/17/19 11:21 Novolog Vial Sliding Scale - SQ Not Given ACHS [facility] Protocol Insulin Detemir 8 units 09/05/19 07:57 09/17/19 06:50 Levemir Vial SQ 8 units AM [facility] Administration Lorazepam 0.5 mg 09/15/19 18:34 09/16/19 13:55 Ativan Injection - IM 0.5 mg Q12H PRN Administration ANXIETY Metoprolol Tartrate 12.5 mg 09/12/19 10:00 09/17/19 11:09 Lopressor - PO 12.5 mg DAILY [facility] Administration Multivitamins/Minerals 10 ml 09/15/19 13:00 09/16/19 13:34 Infuvite Adult - IV 10 ml DAILY [facility] Administration Naloxone HCl 0.4 mg 09/01/19 13:21 Narcan - IVPUSH ONCE PRN Sedation Nystatin 1 applic 09/08/19 10:00 09/17/19 11:16 Nystop Powder - TP 1 applic DAILY [facility] Administration Ondansetron HCl 4 mg 09/01/19 13:21 Zofran Injection IVPUSH ONCE PRN NAUSEA Quetiapine Fumarate 25 mg 09/16/19 22:00 09/16/19 21:56 Seroquel - PO Not Given HS [facility] Valsartan 80 mg 09/02/19 10:00 09/17/19 11:08 Diovan - PO 80 mg DAILY [facility] Administration Impression 1. azotemia/dehydration 2. dm 3. hip fracture 4. htn 5. s/p fall 6. UTI 7. hypernatremia 8. CVA Plan - pt remains with poor po intake - cont clinimix - monitor renal function - discussed with family - psych follow up to adjust meds - encourage po intake
[2019-09-17] MEDS: POTASSIUM CHLORIDE 10 MEQ in AMINO ACIDS 4.25%/D5W 1,000 ML IVPB SCH (14:44)
[2019-09-17] MEDS: MULTIVIT INJ. ADULT COMBO WITH VIT K 1 COMBO 10 ML VIAL IV SCH (14:46)
--- NOTE | 2019-09-17 14:56 | PN ---
Progress Note (short form) - Note Progress Note: Ortho Pt seen and examined s/p right IM gamma nail- Pt had a fall last night. xrays and CT scans were taken. Selected Entries 09/17/19 14:17 Temperature 98.0 F Pulse Rate 93 H Respiratory 18 Rate Blood Pressure 124/62 Laboratory Tests 09/17/19 06:10 WBC 7.8 Hgb 9.1 L Hct 27.4 L Plt Count 362 incisions c/d/i, lexx intact, calf soft, nt nvi xrays and CT scans neg for acute pathology a/p PT if able, PWB dvt ppx pain control d/c planning
[2019-09-17] MEDS: LORazepam 2 MG/ML SDV VIAL IM PRN (16:44)
--- NOTE | 2019-09-17 18:32 | DS ---
Physical Exam: SUBJECTIVE: Patient seen and examined at bedside, mental status waxing and waning, medically cleared for discharge, patient accepted to [facility], explained course and disposition process to family, provided social and emotional support to family regarding discharge process. OBJECTIVE: Vital Signs Period Temp Pulse Resp BP Sys/Powers Pulse Ox Last 24 Hr 97.6 F-98.6 F 64-93 16-18 124-169/55-107 94-94 PHYSICAL EXAM GENERAL: Awake, AAOx0, confused, delirious, calm. HEAD: Normal with no signs of trauma. EYES: PERRL, extraocular movements intact, sclera anicteric, conjunctiva clear. ENT: Ears normal, nares patent, oropharynx clear without exudates, dry mucous membranes. NECK: Trachea midline, full range of motion, supple. LUNGS: CTAB, no crackles or wheezing HEART: S1, S2+, RRR, no m/r/g ABDOMEN: Soft, nontender, nondistended, normoactive bowel sounds, no guarding, no rebound, no hepatosplenomegaly, no masses. EXTREMITIES: no LE edema, no calf tenderness, R heel deep ulcer, L foot pad ulcer NEUROLOGICAL: delirious, confused. PSYCH: intermittent agitation but consolable, calm, confused, delirious SKIN: Warm, dry, normal turgor. LABS Laboratory Results - last 24 hr 09/16/19 09/17/19 09/17/19 21:58 06:04 06:10 WBC 7.8 RBC 3.31 L Hgb 9.1 L Hct 27.4 L MCV 82.7 MCH 27.6 MCHC 33.4 RDW 14.2 Plt Count 362 MPV 8.9 Absolute Neuts (auto) 5.3 Neutrophils % 67.4 Lymphocytes % 21.0 D Monocytes % 8.7 Eosinophils % 2.1 Basophils % 0.8 Nucleated RBC % 0 Sodium Potassium Chloride Carbon Dioxide Anion Gap BUN Creatinine Est GFR (CKD-EPI)AfAm Est GFR (CKD-EPI)NonAf POC Glucometer 168 204 Random Glucose Calcium Phosphorus Magnesium Total Bilirubin AST ALT Alkaline Phosphatase Total Protein Albumin 09/17/19 09/17/19 06:10 11:19 WBC RBC Hgb Hct MCV MCH MCHC RDW Plt Count MPV Absolute Neuts (auto) Neutrophils % Lymphocytes % Monocytes % Eosinophils % Basophils % Nucleated RBC % Sodium 142 Potassium 3.9 Chloride 109 H Carbon Dioxide 26 Anion Gap 7 L BUN 17.6 Creatinine 0.8 Est GFR (CKD-EPI)AfAm 77.37 Est GFR (CKD-EPI)NonAf 66.76 POC Glucometer 135 Random Glucose 211 H Calcium 8.4 L Phosphorus 2.5 Magnesium 2.0 Total Bilirubin 0.5 AST 19 ALT 20 Alkaline Phosphatase 101 Total Protein 5.8 L Albumin 2.3 L Microbiology 09/02/19 17:20 Blood - Peripheral Venous Blood Culture - Final NO GROWTH AFTER 5 DAYS INCUBATION 09/02/19 17:20 Blood - Peripheral Venous Blood Culture - Final NO GROWTH AFTER 5 DAYS INCUBATION 09/02/19 18:00 Urine - Urine - Catheterized Urine Culture - Final Yeast Like Organism Home Medications Medication Instructions Recorded Amlodipine Besylate 10 mg PO DAILY #30 tablet 09/29/18 Aspirin Coated [Ecotrin -] 81 mg PO DAILY #30 tablet.ec 09/29/18 Metformin HCl [Glucophage] 500 mg PO BID #60 tablet 09/29/18 Miscellaneous Medical Supply 1 each .ROUTE ACHS #1 box 09/29/18 [Glucometer Test Strips #100] Olmesartan Medoxomil 40 mg PO DAILY #30 tablet 09/29/18 Valsartan 80 mg PO DAILY 08/30/19 Current Medications Generic Name Dose Route Start Last Admin Trade Name Joseq PRN Reason Stop Dose Admin Acetaminophen 650 mg 09/01/19 13:30 09/17/19 14:00 Tylenol - PO Not Given Q6H [facility] Amlodipine Besylate 5 mg 09/16/19 10:00 09/17/19 11:10 Norvasc - PO 5 mg DAILY [facility] Administration Ascorbic Acid 500 mg 09/15/19 10:00 09/17/19 11:11 Vitamin C - PO 500 mg DAILY [facility] Administration Aspirin 81 mg 09/10/19 14:30 09/17/19 11:12 Asa - PO 81 mg DAILY [facility] Administration Atorvastatin Calcium 40 mg 09/10/19 22:00 09/16/19 21:55 Lipitor - PO Not Given HS [facility] Docusate Sodium 100 mg 09/01/19 22:00 09/17/19 11:16 Colace - PO Not Given BID [facility] Enoxaparin Sodium 40 mg 09/02/19 10:00 09/17/19 11:16 Lovenox - SQ 40 mg DAILY [facility] Administration Potassium Chloride 10 meq/ 1,005 mls @ 50 mls/hr 09/15/19 12:00 09/17/19 14:44 Amino Acids IVPB 50 mls/hr Q24H [facility] Administration Insulin Aspart 1 vial 09/01/19 16:30 09/17/19 17:17 Novolog Vial Sliding Scale - SQ Not Given ACHS [facility] Protocol Insulin Detemir 8 units 09/05/19 07:57 09/17/19 06:50 Levemir Vial SQ 8 units AM [facility] Administration Lorazepam 0.5 mg 09/15/19 18:34 09/17/19 16:44 Ativan Injection - IM 0.5 mg Q12H PRN Administration ANXIETY Metoprolol Tartrate 12.5 mg 09/12/19 10:00 09/17/19 11:09 Lopressor - PO 12.5 mg DAILY [facility] Administration Multivitamins/Minerals 10 ml 09/15/19 13:00 09/17/19 14:46 Infuvite Adult - IV 10 ml DAILY [facility] Administration Naloxone HCl 0.4 mg 09/01/19 13:21 Narcan - IVPUSH ONCE PRN Sedation Nystatin 1 applic 09/08/19 10:00 09/17/19 11:16 Nystop Powder - TP 1 applic DAILY [facility] Administration Ondansetron HCl 4 mg 09/01/19 13:21 Zofran Injection IVPUSH ONCE PRN NAUSEA Quetiapine Fumarate 12.5 mg 09/18/19 10:00 Seroquel - PO DAILY [facility] Quetiapine Fumarate 12.5 mg 09/17/19 22:00 Seroquel - PO HS PRN AGITATION Valsartan 80 mg 09/02/19 10:00 09/17/19 11:08 Diovan - PO 80 mg DAILY [facility] Administration HOSPITAL COURSE: Patient is a 88 year old female with history of depression, anxiety disorder, HTN, HLD, ?baseline dementia, presents s/p fall and was found to have R hip fracture and residual UTI in which she was on abx prior to admission. Patient underwent R IM gamma nail (hip) and received pain medications and other med ications for anxiety, depression and presumed ?baseline dementia which was not officially diagnosed as per family. During hospital course patient developed worsening delirium and confusion, 2/2 ?baseline dementia she had at admission, during hospital course she was treated for her UTI with IV abx and completed her course but her MS continued to deteriorate resulting in her inappropriately getting out of bed and suffering from 2 falls during admission (at different times). No new fractures were appreciated during fall events however patient's delirium continued to worsen. Patient received Ativan PRN with improvement of aggression but did not help with her confusion. Pt. was evaluated by several different services including psych and Neurology service and was deemed to have delirium and they recommended frequent re-directing and Ativan PRN with adjustment of her Seroquel dose. Her Sertraline was discontinued due to suspicion for polypharmacy and it worsening her delirium and concern for possible serotonin syndrome. During hospital stay, patient found to have slurred speech so CT-brain was done which showed a L MCA non-hemorrhagic infarct with severe L carotid stenosis on ultrasound imaging. Decision made by family not to intervene with endartarectomy or invasive measures, and to treat medically with conservative management. Patient accepted to [facility] and is medically stable for discharge to SNF. Date of Admission:08/30/19 Date of Discharge: 09/17/19 Discharge medications: Current Medications Generic Name Dose Route Start Last Admin Trade Name Freq PRN Reason Stop Dose Admin Acetaminophen 650 mg 09/01/19 13:30 09/17/19 14:00 Tylenol - PO Not Given Q6H [facility] Amlodipine Besylate 5 mg 09/16/19 10:00 09/17/19 11:10 Norvasc - PO 5 mg DAILY [facility] Administration Ascorbic Acid 500 mg 09/15/19 10:00 09/17/19 11:11 Vitamin C - PO 500 mg DAILY [facility] Administration Aspirin 81 mg 09/10/19 14:30 09/17/19 11:12 Asa - PO 81 mg DAILY [facility] Administration Atorvastatin Calcium 40 mg 09/10/19 22:00 09/16/19 21:55 Lipitor - PO Not Given HS [facility] Docusate Sodium 100 mg 09/01/19 22:00 09/17/19 11:16 Colace - PO Not Given BID [facility] Enoxaparin Sodium 40 mg 09/02/19 10:00 09/17/19 11:16 Lovenox - SQ 40 mg DAILY [facility] Administration Potassium Chloride 10 meq/ 1,005 mls @ 50 mls/hr 09/15/19 12:00 09/17/19 14:44 Amino Acids IVPB 50 mls/hr Q24H [facility] Administration Insulin Aspart 1 vial 09/01/19 16:30 09/17/19 17:17 Novolog Vial Sliding Scale - SQ Not Given ACHS [facility] Protocol Insulin Detemir 8 units 09/05/19 07:57 09/17/19 06:50 Levemir Vial SQ 8 units AM [facility] Administration Lorazepam 0.5 mg 09/15/19 18:34 09/17/19 16:44 Ativan Injection - IM 0.5 mg Q12H PRN Administration ANXIETY Metoprolol Tartrate 12.5 mg 09/12/19 10:00 09/17/19 11:09 Lopressor - PO 12.5 mg DAILY [facility] Administration Multivitamins/Minerals 10 ml 09/15/19 13:00 09/17/19 14:46 Infuvite Adult - IV 10 ml DAILY [facility] Administration Naloxone HCl 0.4 mg 09/01/19 13:21 Narcan - IVPUSH ONCE PRN Sedation Nystatin 1 applic 09/08/19 10:00 09/17/19 11:16 Nystop Powder - TP 1 applic DAILY [facility] Administration Ondansetron HCl 4 mg 09/01/19 13:21 Zofran Injection IVPUSH ONCE PRN NAUSEA Quetiapine Fumarate 12.5 mg 09/18/19 10:00 Seroquel - PO DAILY [facility] Quetiapine Fumarate 12.5 mg 09/17/19 22:00 Seroquel - PO HS PRN AGITATION Valsartan 80 mg 09/02/19 10:00 09/17/19 11:08 Diovan - PO 80 mg DAILY [facility] Administration Dispositon: Patient to be discharged to [facility] for further treatment. Patient's family instructed to call the wound clinic for an appointment to address her R foot ulcer for possible drainage and wound care. Patient to follow up with appropriate clinics at discharge from the SNF including Neurology clinic, psychiatry clinic, renal clinic, podiatry clinic and her PCP doctor. Patient's family spoken to at length regarding patient's disposition to [facility] and given information for follow up of care. Minutes to complete discharge: 60 Discharge Summary Problems reviewed: Yes Reason For Visit: ELEVATED TROPONIN LEVEL Current Active Problems Acute ischemic left MCA stroke (Acute) Aortic regurgitation (Acute) Cardiac murmur (Acute) Carotid stenosis with cerebral infarction less than 8 weeks ago (Acute) Closed right hip fracture (Acute) Dehydration (Acute) Diabetes mellitus (Acute) Hip fracture, right (Acute) Hypertension (Acute) Left carotid stenosis (Acute) Mitral regurgitation (Acute) Postoperative fever (Acute) Toxic metabolic encephalopathy (Acute) UTI (urinary tract infection) (Acute) Uncontrolled type 2 diabetes mellitus (Acute) Condition: Stable - Instructions Diet, Activity, Other Instructions: You were admitted to the hospital for fall and right hip fracture. You underwent right hip surgery and received medications for your pain which you may continue as needed. While in the hospital you were found to have a stroke and stenosis of your left carotid artery in which surgical intervention was deferred. You will be transferred to a custodial facility where you will be receiving physical therapy and further care of your medical active problems. You may return to your diet and daily regimen as tolerated. Please follow up with your appropriate clinic appointments. You may resume your daily medication regimen as prescribed. Referrals: Woody Arias MD [Primary Care Provider] - Ganga Rhodes MD [Staff Physician] - Jay Louis MD [Staff Physician] - John Pacheco DPM [Staff Physician] - Kirt Orr MD [Staff Physician] - [facility]position[facility] - Home Medications Comprehensive Discharge Medication List: Ambulatory Orders Amlodipine Besylate 10 mg PO DAILY #30 tablet 09/29/18 Aspirin Coated [Ecotrin -] 81 mg PO DAILY #30 tablet.ec 09/29/18 Metformin HCl [Glucophage] 500 mg PO BID #60 tablet 09/29/18 Miscellaneous Medical Supply [Glucometer Test Strips #100] 1 each .ROUTE ACHS #1 box 09/29/18 Olmesartan Medoxomil 40 mg PO DAILY #30 tablet 09/29/18 Valsartan 80 mg PO DAILY 08/30/19 This patient is new to me today: No Emergency Visit: Yes ED Registration Date: 08/30/19 Care time: The patient presented to the Emergency Department on the above date and was hospitalized for further evaluation of their emergent condition. Critical Care patient: No - Discharge Referral Referred to [facility] Med [facility] No Physician Referral: Ben Hernández DO ([facility])
[2019-09-17 19:12] VITALS: BP 152/57; PULSE 92; TEMP 98.5
[2019-09-17] MEDS ORDERED: QUEtiapine FUMARATE 25 MG TABLET PO PRN (22:00)
[2019-09-18] MEDS ORDERED: QUEtiapine FUMARATE 25 MG TABLET PO SCH (10:00)
== END 2019-09-17 21:08 | DRG 480 ==
LOC: JER 12:13 → JERBED 16:29 → J4S 08-31 15:55
PROC: 0QS606Z Reposition Right Upper Femur with Intramedullary Internal Fixation Device, Open Approach (ICD-10-PCS; principal; 2019-09-01 10:30)
DX: S72.141A Displaced intertrochanteric fracture of right femur, initial encounter for closed fracture (principal); G92 Toxic encephalopathy; I63.9 Cerebral infarction, unspecified; N39.0 Urinary tract infection, site not specified; I50.30 Unspecified diastolic (congestive) heart failure; E87.0 Hyperosmolality and hypernatremia; R45.851 Suicidal ideations; I24.8 Other forms of acute ischemic heart disease; W19.XXXA Unspecified fall, initial encounter; Y93.9 Activity, unspecified; Y92.89 Other specified places as the place of occurrence of the external cause; Y99.9 Unspecified external cause status; I11.0 Hypertensive heart disease with heart failure; R01.1 Cardiac murmur, unspecified; F41.9 Anxiety disorder, unspecified; E11.65 Type 2 diabetes mellitus with hyperglycemia; I35.1 Nonrheumatic aortic (valve) insufficiency; I34.0 Nonrheumatic mitral (valve) insufficiency; E86.0 Dehydration; F03.90 Unspecified dementia, unspecified severity, without behavioral disturbance, psychotic disturbance, mood disturbance, and anxiety; Z91.14 Patient's other noncompliance with medication regimen; F32.9 Major depressive disorder, single episode, unspecified; E87.6 Hypokalemia; I25.119 Atherosclerotic heart disease of native coronary artery with unspecified angina pectoris
CPT/HCPCS: 36415; 70450-TC; 70551-TC; 71045-TC-FY; 72125-TC; 72128-TC; 72131-TC; 72170-TC-FY; 73060-TC-LT-FY; 73060-TC-RT-FY; 73090-TC-LT-FY; 73090-TC-RT-FY; 73523-TC-FY; 73552-TC-RT-FY; 73562-TC-RT-FY; 73590-TC-LT-FY; 73590-TC-RT-FY; 73630-TC-LT; 76000-TC-FY; 80048; 80053; 80061; 81003; 82550; 82553; 82570; 82962; 83036; 83721; 83735; 83880; 84100; 84156; 84260; 84443; 84484; 85025; 85610; 85730; 86850; 86900; 86901; 87040; 87086; 93005; 93010; 93306-TC; 93880-TC; 94760; 97116-GP; 97161-GP; 99285-25; J0131; J1644; J7030

== ENCOUNTER 2020-04-04 10:47 | Observation (INO) | payer OTHER, BC ==
[2020-04-04 11:13] VITALS: BMI 28.3
[2020-04-04] MEDS ORDERED: LORazepam 2 MG/ML SDV VIAL ONE ×2 (11:41→18:25)
--- NOTE | 2020-04-04 11:57 | PDOC ---
Documentation entered by Babatunde Monroe SCRIBE, acting as scribe for Marie Colmenares DO. Marie Colmenares DO: This documentation has been prepared by the Mabel klein Xhesika, SCRIBE, under my direction and personally reviewed by me in its entirety. I confirm that the documentation accurately reflects all work, treatment, procedures, and medical decision making performed by me. Attending Attestation - Resident Resident Name: Jacinto Harkins - ED Attending Attestation I have performed the following: I have examined & evaluated the patient, The case was reviewed & discussed with the resident, I agree w/resident's findings & plan, Exceptions are as noted - HPI HPI: 04/04/20 11:20 The patient is a 89y/o F with PMH of dementia, metabolic encephalopathy, ESBL, UTI, HTN, DM, who presents to the ED BIBA from home for AMS. Pt is a poor historian due to 2/2 dementia and confusion. Per daughter, the patient was more aggressive, agitated and scratching at her daughter yesterday. Daughter states she is moving and the pt is paranoid that they will leave her alone and take all her money. Daughter notes the pt woke up this morning and stated "i do not feel well," prompting her arrival to the ED. Daughter states, the health in home caregiver gave the pt breakfast and all her morning meds. Per daughter, the patient is at her MS baseline. Allergies: NKDA PCP: Dr. Arias - Physicial Exam PE: 04/04/20 11:21 GENERAL: Awake, alert to person. HEAD: No signs of trauma NECK: Normal ROM, supple, no lymphadenopathy, JVD, or masses LUNGS: Breath sounds equal, clear to auscultation bilaterally. No wheezes, and no crackles HEART: Regular rate and rhythm, normal S1 and S2, no murmurs, rubs or gallops ABDOMEN: Soft, nontender, normoactive bowel sounds. No guarding, no rebound. No masses EXTREMITIES: + R heel wound with dressing on it. Normal range of motion, no edema. Moving all extremities. NEUROLOGICAL: Cranial nerves II through XII grossly intact. SKIN: Warm, Dry, normal turgor - Medical Decision Making 04/04/20 11:55 a/p: 89yo female from home with her daughter for eval of AMS -hx of dementia -currently agitated, yelling, swinging at staff -yelling -daughter states change happened last night -recently started on ativan for anxiety at home by Dr. Arias -hx of UTI -will send labs, head ct, ekg, cxr, straight cath for UA -pt agitated upon arrival, will give ativan -will monitor and reassess -daughter at the bedside providing hx and agrees with the plan 04/04/20 12:05 poss early infiltrate to RML, pending official read, will send for ct chest 04/04/20 12:59 mild trop elevation no cp 04/04/20 13:13 pt with a uti will start abx 04/04/20 14:23 resident discussed the case with [place] who accepts pt to service Heart Score/ECG Review - ECG Intrepretation Comment:: 04/04/20 11:56 sinus at 86, incomplete RBBB, lvh, lafb, no acute st/t wave findings, abnl ekg Discharge - Discharge Information Problems reviewed: Yes Clinical Impression/Diagnosis: Troponin level elevated UTI (urinary tract infection) Qualifiers: Urinary tract infection type: site unspecified Hematuria presence: without hematuria Qualified Code(s): N39.0 - Urinary tract infection, site not specified AMS (altered mental status) Qualifiers: Altered mental status type: unspecified Qualified Code(s): R41.82 - Altered mental status, unspecified Condition: Guarded - Admission Yes - Follow up/Referral - Patient Discharge Instructions - Post Discharge Activity
[2020-04-04 12:09] LABS: VENOUS BASE EXCESS -0.9 mmol/L (-2-2); VENOUS O2 SATURATION 43.6 % (70-80); VENOUS PCO2 38.4 mmHg (38-52); VENOUS PH 7.406 (7.310-7.410)
--- NOTE | 2020-04-04 12:09 | PDOC ---
History of Present Illness - General Chief Complaint: Altered Mental Status Stated Complaint: Altered Mental Status Time Seen by Provider: 04/04/20 11:11 - History of Present Illness Initial Comments: 04/04/20 12:05 Celia Bernabe is an 89F with PMH dementia, metabolic encephalopathy, ESBL UTI, HTN, DM, who was BIBEMS to the ER for AMS. Daughter called 911 because patient was more lethargic this morning, and was particularly agitated and paranoid last night. No longer somnolent, but still agitated. Patient got breakfast and morning meds at home. Family has home care for patient, and are in the middle of potentially selling the family home, which is a stress. Patient was recently admitted for UTI. PMH/PSH: as above Ambulatory Orders Amlodipine Besylate 10 mg PO DAILY #30 tablet 09/29/18 Aspirin Coated [Ecotrin -] 81 mg PO DAILY #30 tablet.ec 09/29/18 Losartan Potassium 25 mg PO DAILY 11/10/19 Metformin HCl [Glucophage] 500 mg PO DAILY 11/10/19 Ascorbate Calcium [Vitamin C] 500 mg PO BID #28 tablet 11/12/19 Cholecalciferol (Vitamin D3) [Vitamin D3 -] 1,000 unit PO DAILY #14 tab 11/12/19 Zinc Sulfate 220 mg PO BID #28 tablet 11/12/19 Acetaminophen [Tylenol] 325 mg PO Q6H PRN 02/23/20 Amino AC/Protein Hydr/Whey Pro [Prosource Protein Liquid] 946 ml PO BID #60 liquid 02/23/20 Cephalexin [Keflex] 500 mg PO BID 1 Days #2 capsule 02/23/20 Nut.tx.gluc Intol,Lf,Soy/Fiber [Glucerna 1 Darian] 237 ml PO BID #60 liquid 02/23/20 Allergies Allergy/AdvReac Type Severity Reaction Status Date / Time No Known Allergies Allergy Verified 04/04/20 11:04 ROS: unable to obtain PE GENERAL: AAOx1 (baseline as per daughter) HEAD: No signs of trauma, normocephalic, atraumatic EYES: EOMI, sclera anicteric, conjunctiva clear ENT: Auricles normal inspection, hearing grossly normal, nares patent, oropharynx clear without exudates. Moist mucosa NECK: Normal ROM, supple, no lymphadenopathy, JVD, or masses LUNGS: No distress, speaks full sentences, clear to auscultation bilaterally HEART: Regular rate and rhythm, normal S1 and S2, no murmurs, rubs or gallops, ABDOMEN: Soft, nontender EXTREMITIES : R heel wound with dressing on it. Normal range of motion, no edema. No clubbing or cyanosis. NEUROLOGICAL: moving all extremities SKIN: Warm, Dry Vital Signs Temp Pulse Resp BP Pulse Ox 98.3 F 83 16 145/90 100 04/04/20 11:04/04/20 11:04/04/20 11:04/04/20 11:04/04/20 11:04/04/20 12:24 Celia Bernabe is an 89F with PMH dementia, metabolic encephalopathy, ESBL UTI, HTN, DM, who was BIBEMS to the ER for AMS. Daughter called 911 because patient was more lethargic this morning, and was particularly agitated and paranoid last night. Still agitated. DDx includes ICH, ACS, infection, metabolic derangement. -EKG -CXR -CT head and chest without contrast -CBC, CMP, tylenol/alcohol/salicylates, lactic, cardiac enzymes, ammonia, TSH, UA/UC, Covid -Ativan 2mg IV for agitation during straight cath and IV insertion 04/04/20 13:17 EKG: NSR, rate 86m, incomplete RBBB, left anterior fascicular block, LVH, non- specific ST-T wave changes CXR: no acute pathology CT head: no acute pathology CT chest: dependent atelecatasis, lung nodules, indeterminate left adrenal nodule Labs: notable for UTI, elevated lactate, baseline troponemia Will give 1g ceftriaxone, 1000ml LR, and admit for IV antibiotics in the setting of agitation 04/04/20 14:03 Signed out to admitting team who accepted the patient Past History - Medical History Allergies/Adverse Reactions: Allergies Allergy/AdvReac Type Severity Reaction Status Date / Time No Known Allergies Allergy Verified 04/04/20 11:04 Home Medications: Ambulatory Orders Amlodipine Besylate 10 mg PO DAILY #30 tablet 09/29/18 Aspirin Coated [Ecotrin -] 81 mg PO DAILY #30 tablet.ec 09/29/18 Losartan Potassium 25 mg PO DAILY 11/10/19 Metformin HCl [Glucophage] 500 mg PO DAILY 11/10/19 Ascorbate Calcium [Vitamin C] 500 mg PO BID #28 tablet 11/12/19 Cholecalciferol (Vitamin D3) [Vitamin D3 -] 1,000 unit PO DAILY #14 tab 11/12/19 Zinc Sulfate 220 mg PO BID #28 tablet 11/12/19 Acetaminophen [Tylenol] 325 mg PO Q6H PRN 02/23/20 traZODone HCL [Trazodone HCl] 50 mg PO HS 04/04/20 Anemia: No Asthma: No Cancer: No Cardiac Disorders: Yes CVA: Yes COPD: No CHF: No Dementia: Yes Diabetes: Yes (Type 2) GI Disorders: Yes (Diverticulosis) Disorders: Yes (Suspected UTI) HTN: Yes Hypercholesterolemia: Yes Liver Disease: No Psychiatric Problems: Yes (major depression) Seizures: No Thyroid Disease: No - Surgical History Orthopedic Surgery: Yes (R hip fracture Sx) - Reproductive History Is Patient Now?: No - Psycho-Social/Smoking History Smoking History: Never smoked Have you smoked in the past 12 months: No Information on smoking cessation initiated: No - Substance Abuse Hx (Audit-C & DAST Scrn) How often the patient has a drink containing alcohol: Never Score: In Men: 4 or > Positive; In Women: 3 or > Positive: 0 Screen Result (Pos requires Nsg. Audit-10AR): Negative In the last yr the pt used illegal drug/Rx for NonMed reason: No Score: Yes response is considered Positive: 0 Screen Result (Positive result requires Nsg. DAST-10): Negative *Physical Exam - Vital Signs Last Vital Signs Temp Pulse Resp BP Pulse Ox 98.3 F 83 16 145/90 100 04/04/20 11:09 04/04/20 11:09 04/04/20 11:09 04/04/20 11:09 04/04/20 11:09 ED Treatment Course - LABORATORY CBC & Chemistry Diagram: 04/04/20 11:35 04/04/20 11:35 - ADDITIONAL ORDERS Additional order review: Laboratory Results 04/04/20 12:01 POC Glucometer 239 04/04/20 12:01 POC Glucometer 239 - Medications Given in the ED: ED Medications Discontinued Medications Generic Name Dose Route Start Last Admin Trade Name Freq PRN Reason Stop Dose Admin Lorazepam 1 mg 04/04/20 11:45 04/04/20 11:45 Ativan Injection - IVPUSH 04/04/20 11:46 1 mg ONCE ONE Administration Discharge - Discharge Information Problems reviewed: Yes Clinical Impression/Diagnosis: Troponin level elevated UTI (urinary tract infection) Qualifiers: Urinary tract infection type: site unspecified Hematuria presence: without hematuria Qualified Code(s): N39.0 - Urinary tract infection, site not specified AMS (altered mental status) Qualifiers: Altered mental status type: unspecified Qualified Code(s): R41.82 - Altered mental status, unspecified Condition: Guarded - Follow up/Referral Referrals: Woody Arias MD [Primary Care Provider] - - Patient Discharge Instructions - Post Discharge Activity
[2020-04-04 12:13] LABS: BASO % 0.7 % (0-2.0); EOS % 2.9 % (0-4.5); HEMATOCRIT 36.3 % (32.4-45.2); HEMOGLOBIN 11.9 GM/dL (10.7-15.3); LYMPH % 31.8 % (8-40); MCH 26.7 pg (25.7-33.7); MCHC 32.9 g/dl (32.0-36.0); MEAN CELL VOLUME 81.3 fl (80-96); MEAN PLT VOLUME 9.8 fl (7.5-11.1); MONO % 6.4 % (3.8-10.2); NEUT % 58.2 % (42.8-82.8); PLATELET COUNT 233 K/MM3 (134-434); RBC 4.47 M/mm3 (3.60-5.2); RDW 13.4 % (11.6-15.6); WHITE BLOOD COUNT 10.5 K/mm3 (4.0-10.0)
[2020-04-04 12:22] LABS: INR 1.13 (0.83-1.09); PROTHROMBIN TIME (PATIENT) 13.3 SEC (9.7-13.0)
[2020-04-04 12:24] LABS: ACTIVATED PTT 33.7 SECONDS (25.2-36.5)
[2020-04-04 12:47] LABS: ALBUMIN 3.4 g/dl (3.4-5.0); ALK PHOS 81 U/L (45-117); ANION GAP 8 MMOL/L (8-16); BILIRUBIN,TOTAL 0.5 mg/dL (0.2-1); BLOOD UREA NITROGEN 22.6 mg/dL (7-18); CALCIUM 9.4 mg/dL (8.5-10.1); CHLORIDE 107 mmol/L (98-107); CO2 26 mmol/L (21-32); CREATININE 0.9 mg/dL (0.55-1.3); POTASSIUM 4.1 mmol/L (3.5-5.1); SGOT/AST 9 U/L (15-37); SGPT/ALT 16 U/L (13-61); SODIUM 142 mmol/L (136-145); TOT PROT 7.2 g/dl (6.4-8.2)
[2020-04-04 12:56] LABS: MAGNESIUM 1.8 mg/dL (1.8-2.4); PHOSPHOROUS 3.4 mg/dL (2.5-4.9)
[2020-04-04 13:00] LABS: EPI CELLS 12 /uL (0-25.1); HYALINE CASTS 3 /uL (0-3.1); URINE APPEARANCE TURBID; URINE BACTERIA >9,000 /uL (0-1359); URINE BILIRUBIN NEGATIVE (NEGATIVE); URINE COLOR YELLOW; URINE GLUCOSE (UA) NEGATIVE (NEGATIVE); URINE KETONE NEGATIVE (NEGATIVE); URINE LEUK ESTERASE 3+ (NEGATIVE); URINE NITRITE POSITIVE (NEGATIVE); URINE PROTEIN NEGATIVE (NEGATIVE); URINE RBC 63 /uL (0-23.9); URINE UROBILINOGEN 0.2 mg/dL (0.2-1.0); URINE WBC 5812 /uL (0-25.8)
--- OUTSIDE RECORDS SUMMARY | 2020-04-04 13:13 | XMS ---
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 [facility] Value Range Interpretation Description Data Sup porting Code Source(s) Document(s ) Leukocyte PRESENT [facility] clumps [facility] [#/area] in Urine sediment by Microscopy high power field ID Date Data Source [id number] 09/21/2019 10:31:00 PM EDT [facility] Name Value Range Interpretation Description Data Sup porting Code Source(s) Document(s ) Yeast 1+ [facility] [Presence] in Hospital Urine sediment by Light microscopy ID Date Data Source [id number] 09/21/2019 10:31:00 PM EDT [facility] Name Value Range Interpretation Description Data Sup porting Code Source(s) Document(s ) Bacteria 3+ [facility] [#/area] in Hospital Urine sediment by Microscopy high power field ID Date Data Source [id number] 09/21/2019 10:31:00 PM EDT [facility] Name Value Range Interpretation Description Data Sup porting Code Source(s) Document(s ) Erythrocytes 0-3 [facility] [#/area] in /[HPF] Hospital Urine sediment by Microscopy high power field ID Date Data Source [id number] 09/21/2019 10:31:00 PM EDT [facility] Name Value Range Interpretation Description Data Sup porting Code Source(s) Document(s ) Leukocytes 60-100 [facility] [#/area] in /[HPF] Hospital Urine sediment by Microscopy high power field ID Date Data Source [id number] 09/21/2019 10:31:00 PM EDT [facility] Name Value Range Interpretation Code Description Data Supporting Source(s) Document(s ) Leukocyte 1+ [facility] esterase [facility] [Presence] in Urine by Test strip ID Date Data Source [id number] 09/21/2019 10:31:00 PM EDT [facility] Name Value Range Interpretation Description Data Sup porting Code Source(s) Document(s ) URINE POSITIVE [facility] ID Date Data Source [id number] 09/21/2019 10:31:00 PM EDT [facility] Name Value Range Interpretation Description Data Sup porting Code Source(s) Document(s ) Erythrocytes TRACE [facility] [#/volume] in Hospital Urine by Test strip ID Date Data Source [id number] 09/21/2019 10:31:00 PM EDT [facility] Name Value Range Interpretation Code Description Data Klely rce(s) Supporting Document(s ) Bilirubin. NEGATIVE [facility] total [facility] [Presence] in Urine by Test strip ID Date Data Source [id number] 09/21/2019 10:31:00 PM EDT [facility] Name Value Range Interpretation Description Data Sup porting Code Source(s) Document(s ) Urobilinogen 0.2 [facility] [Units/volume] mg/dL Hospital in Urine by Test strip ID Date Data Source [id number] 09/21/2019 10:31:00 PM EDT [facility] Name Value Range Interpretation Description Data Sup porting Code Source(s) Document(s ) Ketones NEGATIVE [facility] [Mass/volume Hospital ] in Urine by Test strip ID Date Data Source [id number] 09/21/2019 10:31:00 PM EDT [facility] Name Value Range Interpretation Description Data Sup porting Code Source(s) Document(s ) Glucose NEGATIVE [facility] [Mass[facility]volume [facility] ] in Urine by Test strip ID Date Data Source [id number] 09/21/2019 10:31:00 PM EDT [facility] Name Value Range Interpretation Code Description Data Kelly rce(s) Supporting Document(s ) Protein TRACE [facility] [Presence] [facility] in Urine by Test strip ID Date Data Source [id number] 09/21/2019 10:31:00 PM EDT [facility] Name Value Range Interpretation Code Description Data Kelly rce(s) Supporting Document(s ) pH of Urine 5.5 [facility] by Test Hospital strip ID Date Data Source [id number] 09/21/2019 10:31:00 PM EDT [facility] Name Value Range Interpretation Code Description Data Supporting Source(s) Document(s ) Specific 1.025 [facility] gravity of Hospital Urine by Test strip ID Date Data Source [id number] 09/21/2019 10:31:00 PM EDT [facility] Name Value Range Interpretation Description Data Sup porting Code Source(s) Document(s ) Clarity in Urine CLEAR [facility] by [facility] automated ID Date Data Source [id number] 09/21/2019 10:31:00 PM EDT [facility] Value Range Interpretation Code Description Data Kelly rce(s) Supporting Document(s ) Color of YELLOW [facility] Urine [facility] ID Date Data Source [id number] 08/21/2019 02:45:00 PM EST [facility] Name Value Range Interpretation Description Data Sup porting Code Source(s) Document(s ) Epithelial 1+ [facility] cells.squamous [facility] [#/area] in Urine sediment by Microscopy high power field ID Date Data Source [id number] 08/21/2019 02:45:00 PM EST [facility] Name Value Range Interpretation Description Data Sup porting Code Source(s) Document(s ) Bacteria 3+ [facility] [#/area] in Hospital Urine sediment by Microscopy high power field ID Date Data Source [id number] 08/21/2019 02:45:00 PM EST [facility] Name Value Range Interpretation Description Data Sup porting Code Source(s) Document(s ) Erythrocytes 5-10 [facility] [#/area] in /[HPF] Hospital Urine sediment by Microscopy high power field ID Date Data Source [id number] 08/21/2019 02:45:00 PM EST [facility] Name Value Range Interpretation Description Data Sup porting Code Source(s) Document(s ) Leukocytes >100 [facility] [#/area] in /[HPF] Hospital Urine sediment by Microscopy high power field ID Date Data Source [id number] 08/21/2019 02:45:00 PM EST [facility] Name Value Range Interpretation Code Description Data Supporting Source(s) Document(s ) Leukocyte 2+ [facility] esterase [facility] [Presence] in Urine by Test strip ID Date Data Source [id number] 08/21/2019 02:45:00 PM [facility] Name Value Range Interpretation Description Data Sup porting Code Source(s) Document(s ) URINE POSITIVE [facility] NITRITES [facility] ID Date Data Source [id number] 08/21/2019 02:45:00 PM EST [facility] Name Value Range Interpretation Description Data Sup porting Code Source(s) Document(s ) Erythrocytes 1+ [facility] [#/volume] in Hospital Urine by Test strip ID Date Data Source [id number] 08/21/2019 02:45:00 PM EST [facility] Name Value Range Interpretation Code Description Data Kelly rce(s) Supporting Document(s ) Bilirubin. NEGATIVE [facility] total [facility] [Presence] in Urine by Test strip ID Date Data Source [id number] 08/21/2019 02:45:00 PM EST [facility] Name Value Range Interpretation Description Data Sup porting Code Source(s) Document(s ) Urobilinogen 0.2 [facility] [Units/volume] mg/dL Hospital in Urine by Test strip ID Date Data Source [id number] 08/21/2019 02:45:00 PM EST [facility] Name Value Range Interpretation Description Data Sup porting Code Source(s) Document(s ) Ketones NEGATIVE [facility] [Mass/volume [facility] ] in Urine by Test strip ID Date Data Source [id number] 08/21/2019 02:45:00 PM EST [facility] Name Value Range Interpretation Code Description Data Kelly rce(s) Supporting Document(s ) Glucose 3+ [facility] [Mass/volume [facility] ] in Urine by Test strip ID Date Data Source [id number] 08/21/2019 02:45:00 PM EST [facility] Name Value Range Interpretation Code Description Data Kelly rce(s) Supporting Document(s ) Protein 1+ [facility] [Presence] [facility] in Urine by Test strip ID Date Data Source [id number] 08/21/2019 02:45:00 PM [facility] Name Value Range Interpretation Code Description Data Kelly rce(s) Supporting Document(s ) pH of Urine 5.0 [facility] by Test Hospital strip ID Date Data Source [id number] 08/21/2019 02:45:00 PM [facility] Name Value Range Interpretation Code Description Data Supporting Source(s) Document(s ) Specific 1.037 [facility] gravity of Hospital Urine by Test strip ID Date Data Source [id number] 08/21/2019 02:45:00 PM [facility] Name Value Range Interpretation Description Data Sup porting Code Source(s) Document(s ) Clarity in Urine TURBID [facility] automated ID Date Data Source [id number] 08/21/2019 02:45:00 PM [facility] Name Value Range Interpretation Code Description Data Kelly rce(s) Supporting Document(s ) Color of YELLOW [facility] Urine [facility] ID Date Data Source [id number] 08/21/2019 01:27:00 PM [facility] TEST PERFORMED BY [facility] [facility] CHEMILUMINESCENCE METHOD. Name Value Range Interpretation Description Data Sup porting Code Source(s) Document(s ) Troponin 0.02 [facility] I.cardiac ng/mL Hospital [Mass/volume ] in Serum or Plasma ID Date Data Source [id number] 08/21/2019 01:27:00 PM EST [facility] Name Value Range Interpretation Code Description Data Supporting Source(s) Document(s ) Creatine 36 U/L [facility] kinase [facility] [Enzymatic activity/volu me] in Serum or Plasma ID Date Data Source [id number] 08/21/2019 01:27:00 PM EST [facility] Name Value Range Interpretation Description Data Sup porting Code Source(s) Document(s ) Aspartate 10 U/L [facility] aminotransferase [place] [Enzymatic Hospital activity/volume] in Serum or Plasma ID Date Data Source [id number] 08/21/2019 01:27:00 PM EST [facility] Name Value Range Interpretation Description Data Sup porting Code Source(s) Document(s ) Alanine 11 U/L [facility] aminotransferase [place] [Enzymatic Hospital activity/volume] in Serum or Plasma ID Date Data Source [id number] 08/21/2019 01:27:00 PM EST [facility] Name Value Range Interpretation Description Data Sup porting Code Source(s) Document(s ) Alkaline 79 U/L [facility] phosphatase [facility] [Enzymatic activity/volume ] in Serum or Plasma ID Date Data Source [id number] 08/21/2019 01:27:00 PM EST [facility] Name Value Range Interpretation Description Data Sup porting Code Source(s) Document(s ) Bilirubin.t 0.7 mg/dL [facility] [Mass/volum e] in Serum or Plasma ID Date Data Source [id number] 08/21/2019 01:27:00 PM EST [facility] Name Value Range Interpretation Code Description Data Kelly rce(s) Supporting Document(s ) Albumin/Glob 1.6 [facility] ulin [Mass Hospital Ratio] in Serum or Plasma ID Date Data Source [id number] 08/21/2019 01:27:00 PM EST [facility] Name Value Range Interpretation Description Data Sup porting Code Source(s) Document(s ) Albumin 3.9 g/dL [facility] [Mass/volume [facility] ] in Serum or Plasma ID Date Data Source [id number] 08/21/2019 01:27:00 PM EST [facility] Name Value Range Interpretation Description Data Sup porting Code Source(s) Document(s ) Protein 6.4 g/dL [facility] [Mass/volume [facility] ] in Serum or Plasma ID Date Data Source [id number] 08/21/2019 01:27:00 PM EST [facility] Name Value Range Interpretation Description Data Sup porting Code Source(s) Document(s ) Calcium 9.2 mg/dL [facility] [Mass/volume [facility] ] in Serum or Plasma ID Date Data Source [id number] 08/21/2019 01:27:00 PM EST [facility] Name Value Range Interpretation Code Description Data Kelly rce(s) Supporting Document(s ) Urea 9.2 [facility] nitrogen/Cre Hospital atinine [Mass Ratio] in Serum or Plasma ID Date Data Source [id number] 08/21/2019 01:27:00 PM EST [facility] Name Value Range Interpretation Description Data Sup porting Code Source(s) Document(s ) Creatinine 1.2 mg/dL [facility] [Mass/volume] [facility] in Serum or Plasma ID Date Data Source [id number] 08/21/2019 01:27:00 PM EST [facility] Name Value Range Interpretation Description Data Sup porting Code Source(s) Document(s ) Urea 11 mg/dL [facility] nitrogen [facility] [Mass/volume ] in Serum or Plasma ID Date Data Source [id number] 08/21/2019 01:27:00 PM EST [facility] Name Value Range Interpretation Code Description Data Kelly rce(s) Supporting Document(s ) Anion gap in 13 [facility] Serum or [facility] Plasma ID Date Data Source [id number] 08/21/2019 01:27:00 PM [facility] Name Value Range Interpretation Description Data Sup porting Code Source(s) Document(s ) Carbon 27 mmol/L [facility] dioxide, Hospital total [Moles/volu me] in Serum or Plasma ID Date Data Source [id number] 08/21/2019 01:27:00 PM [facility] Name Value Range Interpretation Description Data Sup porting Code Source(s) Document(s ) Chloride 101 [facility] [Moles/volum mmol/L Hospital e] in Serum or Plasma ID Date Data Source [id number] 08/21/2019 01:27:00 PM [facility] Name Value Range Interpretation Description Data Sup porting Code Source(s) Document(s ) Potassium 4.1 [facility] [Moles/volume mmol/L Hospital ] in Serum or Plasma ID Date Data Source [id number] 08/21/2019 01:27:00 PM [facility] Name Value Range Interpretation Description Data Sup porting Code Source(s) Document(s ) Sodium 137 mmol/L [facility] [Moles/volu Hospital me] in Serum or Plasma ID Date Data Source [id number] 08/21/2019 01:27:00 PM [facility] NOTIFICATION AND READ BACK OF CRITICAL R ESULTS TO DR. RODRIGUEZ AT 1427 ON 08/21/19 BY Georgette Boles.PLEASE NOTE CHANGE IN CRITI ARLETTE GLUCOSE VALUES EFFECTIVE 07/22/17.REPORTED CRITICAL VALUES SHOULD BE INTERPRETED WI THIN CLINICAL CONTEXT. Name Value Range Interpretation Description Data Sup porting Code Source(s) Document(s ) Glucose 474 mg/dL [facility] [Mass/volume Hospital ] in Serum or Plasma ID Date Data Source [id number] 08/21/2019 01:27:00 PM [facility] THERAPEUTIC RANGES:UNFRACTIONATED HEPARI N THERAPY: 60-90 SECONDSARGATROBAN THERAPY: 49-99 SECONDS Name Value Range Interpretation Description Data Sup porting Code Source(s) Document(s ) aPTT in 30.9 s [facility] Platelet poor [facility] plasma by Coagulation assay ID Date Data Source [id number] 08/21/2019 01:27:00 PM [facility] THERAPEUTIC RANGE FOR STANDARD ORALANTIC OAGULANT THERAPY: 2.0-3.0THERAPEUTIC RANGE FOR HIGH DOSE ORALANTICOAGULANT THERAPY (MECHANICAL HEARTVALVE REPLACEMENT): 2.5-3.5 Name Value Range Interpretation Description Data Sup porting Code Source(s) Document(s ) INR in Platelet 1.1 [facility] poor plasma by Hospital Coagulation assay ID Date Data Source [id number] 08/21/2019 01:27:00 PM [facility] Name Value Range Interpretation Description Data Sup porting Code Source(s) Document(s ) PT panel - 12.0 s [facility] Platelet poor [facility] plasma by Coagulation assay ID Date Data Source [id number] 08/21/2019 01:27:00 PM [facility] Name Value Range Interpretation Code Description Data Supporting Source(s) Document(s ) NUCLEATED RBCS 0.0 % [facility] (AUTO Hospital DIFF%)DIS ID Date Data Source [id number] 08/21/2019 01:27:00 PM [facility] Name Value Range Interpretation Description Data Sup porting Code Source(s) Document(s ) Differential AUTOMATED [facility] cell count Hospital method - Blood ID Date Data Source [id number] 08/21/2019 01:27:00 PM EST [facility] Name Value Range Interpretation Description Data Sup porting Code Source(s) Document(s ) Immature 0.01 [facility] granulocytes 10*3/uL Hospital [#/volume] in Blood by Automated count ID Date Data Source [id number] 08/21/2019 01:27:00 PM EST [facility] Name Value Range Interpretation Description Data Sup porting Code Source(s) Document(s ) Basophils 0.04 [facility] [#/volume] in 10*3/uL Hospital Blood by Automated count ID Date Data Source [id number] 08/21/2019 01:27:00 PM [facility] Value Range Interpretation Description Data Sup porting Code Source(s) Document(s ) Eosinophils 0.12 [facility] [#/volume] in 10*3/uL Hospital Blood by Automated count ID Date Data Source [id number] 08/21/2019 01:27:00 PM [facility] Value Range Interpretation Description Data Sup porting Code Source(s) Document(s ) Monocytes 0.50 [facility] [#/volume] in 10*3/uL Hospital Blood by Automated count ID Date Data Source [id number] 08/21/2019 01:27:00 PM [facility] Name Value Range Interpretation Description Data Sup porting Code Source(s) Document(s ) Lymphocytes 1.95 [facility] [#/volume] in 10*3/uL Hospital Blood by Automated count ID Date Data Source [id number] 08/21/2019 01:27:00 PM EST [facility] Name Value Range Interpretation Description Data Sup porting Code Source(s) Document(s ) Neutrophils 4.36 [facility] [#/volume] in 10*3/uL Hospital Blood by Automated count ID Date Data Source [id number] 08/21/2019 01:27:00 PM EST [facility] Name Value Range Interpretation Description Data Sup porting Code Source(s) Document(s ) Nucleated 0.0 % [facility] erythrocytes/10 Hospital 0 leukocytes [Ratio] in Blood by Automated count ID Date Data Source [id number] 08/21/2019 01:27:00 PM EST [facility] Name Value Range Interpretation Description Data Sup porting Code Source(s) Document(s ) Immature 0.1 % [facility] granulocytes/10 Hospital 0 leukocytes in Blood by Automated count ID Date Data Source [id number] 08/21/2019 01:27:00 PM EST [facility] Value Range Interpretation Description Data Sup porting Code Source(s) Document(s ) Basophils/100 0.6 % [facility] leukocytes in Hospital Blood by Automated count ID Date Data Source [id number] 08/21/2019 01:27:00 PM EST [facility] Value Range Interpretation Description Data Sup porting Code Source(s) Document(s ) Eosinophils/100 1.7 % [facility] leukocytes in Hospital Blood by Automated count ID Date Data Source [id number] 08/21/2019 01:27:00 PM EST [facility] Value Range Interpretation Description Data Sup porting Code Source(s) Document(s ) Monocytes/100 7.2 % [facility] leukocytes in Hospital Blood by Automated count ID Date Data Source [id number] 08/21/2019 01:27:00 PM EST [facility] Name Value Range Interpretation Description Data Sup porting Code Source(s) Document(s ) Lymphocytes/10 27.9 % [facility] 0 leukocytes Hospital in Blood by Automated count ID Date Data Source [id number] 08/21/2019 01:27:00 PM EST [facility] Name Value Range Interpretation Description Data Sup porting Code Source(s) Document(s ) Neutrophils/10 62.5 % [facility] 0 leukocytes Hospital in Blood by Automated count ID Date Data Source [id number] 08/21/2019 01:27:00 PM [facility] Name Value Range Interpretation Description Data Sup porting Code Source(s) Document(s ) Platelet mean 11.4 fL [facility] volume [facility] [Entitic volume] in Blood by Automated count ID Date Data Source [id number] 08/21/2019 01:27:00 PM [facility] Name Value Range Interpretation Description Data Sup porting Code Source(s) Document(s ) Platelets 195 [facility] [#/volume] in 10*3/uL Hospital Blood by Automated count ID Date Data Source [id number] 08/21/2019 01:27:00 PM [facility] Value Range Interpretation Description Data Sup porting Code Source(s) Document(s ) Erythrocyte 11.8 % [facility] Hospital width [Ratio] by Automated count ID Date Data Source [id number] 08/21/2019 01:27:00 PM [facility] Value Range Interpretation Description Data Sup porting Code Source(s) Document(s ) Erythrocyte mean 33.1 [facility] corpuscular g/dL Hospital hemoglobin concentration [Mass/volume] by Automated count ID Date Data Source [id number] 08/21/2019 01:27:00 PM [facility] Value Range Interpretation Description Data Sup porting Code Source(s) Document(s ) Erythrocyte 26.8 pg [facility] corpuscular hemoglobin [Entitic mass] by Automated count ID Date Data Source [id number] 08/21/2019 01:27:00 PM [facility] Value Range Interpretation Description Data Sup porting Code Source(s) Document(s ) Erythrocyte 81.0 fL [facility] mean Hospital corpuscular volume [Entitic volume] by Automated count ID Date Data Source [id number] 08/21/2019 01:27:00 PM [facility] Value Range Interpretation Description Data Sup porting Code Source(s) Document(s ) Hematocrit 38.4 % [facility] [Volume Hospital Fraction] of Blood by Automated count ID Date Data Source [id number] 08/21/2019 01:27:00 PM [facility] Value Range Interpretation Description Data Sup porting Code Source(s) Document(s ) Hemoglobin 12.7 g/dL [facility] [Mass/volume] Hospital in Blood ID Date Data Source [id number] 08/21/2019 01:27:00 PM [facility] Value Range Interpretation Description Data Sup porting Code Source(s) Document(s ) Erythrocytes 4.74 [facility] [#/volume] in 10*6/uL Hospital Blood by Automated count ID Date Data Source [id number] 08/21/2019 01:27:00 PM [facility] Value Range Interpretation Description Data Sup porting Code Source(s) Document(s ) Leukocytes 7.0 [facility] [#/volume] in 10*3/uL Hospital Blood by Automated count ID Date Data Source [id number] 08/21/2019 01:15:00 PM [facility] Value Range Interpretation Description Data Sup porting Code Source(s) Document(s ) GLUCOSE RN Notified [facility] ID Date Data Source [id number] 08/21/2019 01:15:00 PM [facility] Value Range Interpretation Description Data Sup porting Code Source(s) Document(s ) GLUCOSE MD Notified [facility] ID Date Data Source [id number] 08/21/2019 01:15:00 PM [facility] Criminal Defense Attorney:ROCIO SANTO Name Value Range Interpretation Description Data Sup porting Code Source(s) Document(s ) Glucose 453 mg/dL [facility] in Capillary blood by Glucometer ID Date Data Source [id number] 08/21/2019 01:15:00 PM [facility] Name Value Range Interpretation Description Data Sup porting Code Source(s) Document(s ) GLUCOSE RN Notified [address] ID Date Data Source [id number] 08/21/2019 01:15:00 PM [facility] Name Value Range Interpretation Description Data Sup porting Code Source(s) Document(s ) GLUCOSE MD Notified [facility] ID Date Data Source [id number] 08/21/2019 01:15:00 PM [facility] Criminal Defense Attorney:ROCIO SANTO Name Value Range Interpretation Description Data Sup porting Code Source(s) Document(s ) Glucose 453 mg/dL [facility] in Capillary blood by Glucometer ID Date Data Source [id number] 02/13/2019 01:10:54 PM EDT [facility] [id number] Corporation Name Value Range Interpretation Description Data Sup porting Code Source(s) Document(s ) Antibody NEG <td> [place] Screen 02/12/2019 [facility] 15:35</td><td> Care Antibody Corporation Screen </td><td> NEG
</td> ABO-Rh Type O POS <td> [place] 02/12/2019 [facility] 15:35</td><td> Care ABO-Rh Type Corporation </td><td> O POS
</td> Specimen 02/16/20 <td> [place] expiration date 19 23:59 02/12/2019 [facility] 15:35</td><td> Care Specimen Corporation Expiration Date </td><td> 02/15/2019 23:59
</td> ABO O POS <td> [place] Verification 02/12/2019 [facility] 16:05</td><td> Care ABO Sinopsys Surgical Verification </td><td> O POS
</td> ID Date Data Source [id number] 02/13/2019 01:10:54 PM EDT [facility] [id number] Corporation Name Value Range Interpretation Description Data Sup porting Code Source(s) Document(s ) Chest (PACSIMAGE <td> 02/12/2019 [place] Portable 15:26</td><td> [facility] Chest Portable Health Care Final Result </td><td><paragra Corporati on Name: [facility], styleCode="Italic TRAUMA s">(PACSIMAGE Sex: F )</paragraph><br/ : >
Final 09/15/1965 Result Location: F

Admitting Name: ROMAYOR, Physician: TRAUMA EMERGENCY
MRN: SERVICE [id number] Sex: F Requesting
Physician: : 09/15/1965 NILE MORIN Location: F Exam:
CHEST Admitting PORTABLE Physician: 02/12/2019 EMERGENCY SERVICE 15:38
CLINICAL Requesting INDICATION: Physician: NILE MORIN TECHNIQUE:

Portable Exam: CHEST frontal PORTABLE chest 02/12/2019 15:38 radiograph. .

COMPARISON: CLINICAL There are INDICATION: no prior
examinations Trauma available

for TECHNIQUE: comparison.
Portable frontal FINDINGS: chest radiograph. The patient . is rotated

to the left. COMPARISON: The
lungs are There are no clear. No prior pneumothorax examinations . No pleural available for effusion. comparison. Calcified

aorta with FINDINGS: normal
cardiac The patient is mediastinal rotated to the silhouette. left.

IMPRESSION: The lungs are The lungs clear. No are clear. pneumothorax. No pleural effusion. Resident Calcified Radiologist:
Han aorta with normal Diony cardiac Resident mediastinal Radiologistt silhouette. Attending

Radiologist: IMPRESSION: Bela
Kimani ALMARAZ The lungs are Finalizing clear. Radiologist:

<b Bela r/> Resident Kimani ALMARAZ Radiologist: Transcribed Han Date: Diony ALMARAZ 02/12/2019 Resident 16:42 Radiologistt Finalized
Date: Attending 02/12/2019 Radiologist: 16:49 Bela Harman MD
Finalizing Radiologist: Bela Harman MD
Transcribed Date: 02/12/2019 16:42
Finalized Date: 02/12/2019 16:49

</td> Cervical (PACSIMAGE <td> 02/12/2019 [place] Spine W/Out 15:48</td><td> [facility] Contrast-CT ) Cervical Spine Health Care Final Result W/Out Contrast-CT Corporati on Name: </td><td><paragr TAINA, aph TRAUMA styleCode="Italic s">(PACSIMAGE Sex: F : )</paragraph><br/ 09/15/1965 >
Final Location: F Result Admitting

Physician: Name: ROMAYOR, EMERGENCY TRAUMA SERVICE
MRN: Requesting [id number] Sex: F Physician:
BOSSMAN KIRKLAND : 09/15/1965 Exam: CT Location: F C SPINE C-
02/12/2019 Admitting 16:12 Physician: EXAM: CT C EMERGENCY SERVICE SPINE C-
HISTORY: Requesting Trauma Physician: BOSSMAN TECHNIQUE: A KIRKLAND noncontrast

multidetecto Exam: CT C SPINE r spiral CT C- 02/12/2019 examination 16:12 of the

cervical EXAM: CT C spine was SPINE C- performed,

followed by HISTORY: Trauma multiple 2D sagittal

and coronal TECHNIQUE: A reconstructi noncontrast ons. multidetector Up-to-date spiral CT CT equipment examination using
of Automatic the cervical Exposure spine was Control, performed, dose followed by modulation, multiple 2D and
iterative sagittal and reconstructi coronal on dose reconstructions. reduction software

was Up-to-date CT employed. equipment using The total Automatic study DLP is Exposure Control, approximatel dose y 1326
mGy-cm. modulation, and The iterative following reconstruction accession dose reduction numbers are software related to
was this dose employed. report
The [id number]}: total study DLP [id number] is approximately 1326 mGy-cm. COMPARISON:

None. The following FINDINGS: accession numbers Overlying are related to jewelry this dose report results in
marked [id number]}: metallic
streak [id number] artifact

precludes COMPARISON: evaluation None. of the C6

and C7 FINDINGS: vertebral

bodies and Overlying jewelry the spinal results in marked canal at metallic streak these artifact levels.
Subtle acute precludes fractures evaluation of the cannot be C6 and C7 excluded at vertebral bodies these and the levels.
spinal Within this canal at these limitation, levels. Subtle no acute acute fractures osseous cannot be abnormalitie
s. Possible excluded at these minimal levels. Within anterolisthe this limitation, sis of C7 on no acute osseous T1. There
is abnormalities. straightenin Possible minimal g of normal anterolisthesis cervical of C7 on T1. lordosis.
There are There is degenerative straightening of changes of normal cervical the lordosis. There intervertebr are al discs
with disc degenerative bulging, changes of the spondylosis intervertebral and facet discs with disc joint bulging, osteoarthrop
athy. Mild spondylosis and soft tissue facet joint pannus osteoarthropathy. prominence Mild soft tissue at C1-C2
resulting in pannus at least prominence at mild spinal C1-C2 resulting canal in at least mild stenosis. spinal Prominent
canal posterior stenosis. disc Prominent osteophyte posterior disc complex at osteophyte C4-C5 and complex at C5-C6
resulting in C4-C5 and C5-C6 at least resulting in at moderate least moderate degenerative degenerative spinal spinal canal
canal stenosis. stenosis. There There is is multilevel multilevel neural foraminal neural stenosis. foraminal
MRI stenosis. cervical spine MRI cervical without contrast spine can be performed without for further contrast can
be performed characterization, for further as clinically characteriz warranted. The ation, as prevertebral soft clinically
warranted. tissues are The unremarkable. prevertebral Vascular soft atherosclerotic tissues are calcifications.. unremarkable . Vascular

atherosclero IMPRESSION: tic

calcificatio 1. Overlying ns.. jewelry results IMPRESSION: in marked 1. metallic streak Overlying artifact jewelry
results in precluding marked evaluation of the metallic C6 and C7 streak vertebral bodies. artifact Subtle precluding
acute evaluation fractures cannot of the C6 be excluded at and C7 these levels. vertebral Repeat bodies. examination Subtle
acute with removal of fractures overlying jewelry cannot be is suggested, as excluded at clinically these
levels. warranted. Repeat

examination 2. Otherwise, no with acute fracture in removal of the remaining overlying visualized jewelry is cervical suggested,
as spine. clinically

3. warranted. Marked multilevel 2. degenerative Otherwise, changes most no acute significant at fracture in
the C4-C5 and C5-C6 remaining resulting in at visualized least moderate cervical degenerative spine. spinal 3. Marked
canal multilevel stenosis. degenerative changes most

<b significant r/>
at C4-C5 Resident and C5-C6 Radiologist: resulting in Rob at least Dunia ALMARAZ moderate Resident degenerative Radiologistt spinal
canal Attending stenosis. Radiologist: Elke Celis MD Resident
Radiologist: Finalizing Rob Radiologist: Elke Celis MD, MD Resident
Radiologistt Transcribed Date: Attending 02/12/2019 16:24 Radiologist:
Elke Celis MD Finalized Date: Finalizing 02/12/2019 16:30 Radiologist: Elke Celis MD

</td> Transcribed Date: 02/12/2019 16:24 Finalized Date: 02/12/2019 16:30 Chest/Abd/P (PACSIMAGE <td> 02/12/2019 [facility] With 16:02</td><td> [facility] Cont-CT ) Chest/Abd/Pelvis Health Care Final Result With Cont-CT Corporation Name: </td><td><paragra TAINA, ph TRAUMA styleCode="Italic s">(PACSIMAGE Sex: F : )</paragraph><br/ 09/15/1965 >
Final Location: F Result Admitting

Physician: Name: ROMAYOR, EMERGENCY TRAUMA SERVICE
MRN: Requesting [id number] Sex: F Physician:
BOSSMAN KIRKLAND : 09/15/1965 Exam: CT Location: F THORAX/ABD/P
ELV C+ Admitting 02/12/2019 Physician: 16:31 EMERGENCY SERVICE INDICATION:
Trauma. Requesting COMPARISON: Physician: BOSSMAN None.. MARITA TECHNIQUE:

Post-contras Exam: CT t CT of the THORAX/ABD/PELV chest, C+ 02/12/2019 abdomen and 16:31 pelvis was

performed. INDICATION: 100 mL of Trauma. Omnipaque

350 was COMPARISON: injected None.. intravenousl

y without TECHNIQUE: complication Post-contrast CT . Oral of the chest, contrast was abdomen and not pelvis administered
was . Trauma performed. 100 mL protocol was of Omnipaque 350 utilized. was injected Up-to-date intravenously CT equipment
using without Automatic complication. Exposure Oral contrast was Control, not administered. dose Trauma modulation,
and protocol was iterative utilized. reconstructi
on dose Up-to-date CT reduction equipment using software Automatic was Exposure Control, employed. dose The total
study DLP is modulation, and approximatel iterative y 1041 reconstruction mGy-cm. dose reduction The software following
was accession employed. numbers are
The related to total study DLP this dose is approximately report 1041 mGy-cm. [id number]}:

[id number] The following [id number] accession numbers FINDINGS: are related to AIRWAYS, this dose report LUNGS, and
PLEURA: The [id number]}: central
tracheobronc [id number] hial tree
is patent. [id number] There are

scattered FINDINGS: foci of

pleural-base AIRWAYS, LUNGS, d nodular and PLEURA: The opacities central measuring tracheobronchial less than 6 tree mm, largest
is within the patent. There are lateral scattered foci of left lower pleural-based lobe (image nodular 210, series
402), opacities indeterminat measuring less e in than 6 mm, etiology largest within and may the lateral represent
intrapulmona left lower lobe ry lymph (image 210, nodes. A 5 series 402), mm nodule indeterminate in within the etiology anterior
and right middle may represent lobe (image intrapulmonary 158, series lymph nodes. A 5 402). mm nodule within Bibasilar
dependent the anterior atelectasis. right middle lobe There is no (image 158, pleural series 402). effusion. Bibasilar There is
no dependent pneumothorax atelectasis. . There is no MEDIASTINUM: pleural effusion. There are no There is enlarged
no mediastinal, pneumothorax. hilar or

axillary MEDIASTINUM: lymph nodes. There are no Streak enlarged artifact mediastinal, from the hilar or axillary external
hardware lymph nodes. limits Streak artifact evaluation from the external of the hardware limits thyroid,
which evaluation of appears the thyroid, heterogeneou which appears s. heterogeneous. HEART AND VESSELrS:

The heart is HEART AND normal in VESSELrS: The size. There heart is normal are aortic in size. There and coronary are aortic artery
and calcificatio coronary artery ns. The calcifications. thoracic The thoracic aorta has a aorta has a normal
caliber with normal caliber a with a penetrating penetrating atheromatous atheromatous ulcer within ulcer within the the
descending descending thoracic thoracic aorta aorta (image (image 161, 161, series series 402). 402). There There is no is no
pericardial pericardial effusion. effusion. There There is is mitral annulus mitral calcification annulus suggestive calcificatio
of n suggestive underlying of valvular underlying dysfunction. valvular Dilated main dysfunction. pulmonary artery Dilated main
pulmonary measuring 3.4 artery cm. measuring

3.4 cm. LIVER: The liver LIVER: The is normal in size liver is and enhancement normal in characteristics. size and
enhancement There is a 0.5 characterist cm hypodense ics. There focus within is a 0.5 cm segment HECTOR, hypodense which is focus within
too segment HECTOR, small to which is characterize on too small to current characterize examination. on current There is examination. accessory There is
left accessory hepatic artery left hepatic arising from the artery left gastric arising from artery. Dilated the left
gastric central portal artery. veins. Dilated
BILIARY central SYSTEM: There is portal no biliary ductal veins. dilatation. BILIARY
SYSTEM: GALLBLADDER: There is no Sludge filled biliary gallbladder with ductal several lucent dilatation. foci GALLBLADDER
within : Sludge the gallbladder filled lumen suggestive gallbladder of lucent with several gallstones. lucent foci within the

gallbladder PANCREAS: lumen Atrophic suggestive pancreas. of lucent
gallstones. SPLEEN: Within normal limits. PANCREAS:
Atrophic ADRENALS: Mild pancreas. nonspecific SPLEEN: thickening of the Within left adrenal normal gland. limits.
The ADRENALS: right adrenal Mild gland is within nonspecific normal limits. thickening of the left

adrenal KIDNEYS/URETERS: gland. The Symmetric right nephrograms. The adrenal kidneys gland is demonstrates within
normal cortical limits. lobulation and KIDNEYS/URET scarring ERS: suggestive of Symmetric prior infarct nephrograms.
The kidneys versus infection. demonstrates There is a left cortical interpolar simple lobulation renal cyst. and scarring suggestive

of prior infarct BOWEL/MESENTERY: versus Gastric fundal infection. diverticulum. No There is a bowel obstruction left
interpolar or wall simple renal thickening. cyst. Colonic BOWEL/MESEN diverticulosis ARLYN: without evidence Gastric of fundal
diverticulum diverticulitis. . No bowel obstruction

or wall URINARY BLADDER: thickening. Underdistended Colonic urinary bladder diverticulos without contrast is without
evidence of extravasation diverticuli on delayed phase tis. imaging. URINARY
BLADDER: REPRODUCTIVE Underdistend ORGANS: Central ed urinary hypodensity in bladder the uterus. without Peritoneocele.. contrast extravasatio

n on delayed PERITONEUM/RETROP phase ERITONEUM: No imaging. free air. No free REPRODUCTIVE or loculated ORGANS:
Central fluid. hypodensity
LYMPH in the NODES: No uterus. abdominal or Peritoneocel pelvic e.. lymphadenopathy. PERITONEUM/R
ETROPERITONE VESSELS: No UM: No free abdominal aortic air. No free aneurysm. or loculated

fluid. BONES: LYMPH NODES: Age-indeterminate No abdominal right anterior or pelvic fifth rib lymphadenopa fracture. thy. Multilevel VESSELS: No
abdominal degenerative disc aortic disease of the aneurysm. thoracolumbar BONES: spine. Age Age-indeterm indeterminate inate right
anterior compression fifth rib fracture of L1 fracture. with 4 to 5 mm Multilevel bony degenerative retropulsion. disc disease
of the Please see thoracolumba dedicated CT TLS r spine. Age spine for further indeterminat description. e
compression SOFT TISSUES: fracture of Within normal L1 with 4 to limits. 5 mm bony

retropulsion IMPRESSION: . Please
1. see Age-indeterminate dedicated CT right anterior TLS spine fifth rib for further fracture. description. Correlate SOFT
with TISSUES: point tenderness. Within
normal 2. limits. Age-indeterminate IMPRESSION: compression 1. fracture of L1 Age-indeterm with 4 to 5 mm inate right
anterior bony fifth rib retropulsion. fracture. Please see Correlate dedicated CT TLS with point spine for further tenderness.
2. description. Age-indeterm
inate 3. Penetrating compression atheromatous fracture of ulcer within the L1 with 4 to descending 5 mm bony thoracic retropulsion
aorta . Please see at the level of dedicated CT T7 vertebral TLS spine body. Traumatic for further aortic injury description
. 3. is less likely in Penetrating this location. atheromatous Correlate for ulcer within acute aortic the syndrome.. descending
4. thoracic 5 mm nodule aorta at the within the level of T7 anterior right vertebral middle lobe. body. Correlation Traumatic
aortic with patient risk injury is factors is less likely suggested and in this follow-up location. according Correlate
to for acute Fleischner aortic criteria is syndrome.. recommended. 4. 5 mm
nodule 5. Central within the uterine anterior hypodensity; right middle endometrial lobe. pathology cannot Correlation
with be excluded. patient risk Further factors is evaluation with suggested ultrasound can be and obtained follow-up
as according clinically to warranted. Fleischner Peritoneocele. criteria is recommended.

5. Central Critical findings uterine were discussed hypodensity; with and readback endometrial verification pathology
cannot be obtained from Dr. excluded. Hayes by Dr. Augusta Wallace at evaluation approximately with
ultrasound 5:50 PM on can be 02/12/2019. obtained as

<b clinically r/> Resident warranted. Radiologist: Peritoneocel Mike Wallace MD Critical Resident findings Radiologistt were
discussed Attending with and Radiologist: readback Carlene Christie verification
obtained Finalizing from Radiologist: Abigail Christie by
Rodrigo at Transcribed approximatel Date: 02/12/2019 y 5:50 PM 17:16 on 02/12/2019.
Finalized Date: Resident 02/12/2019 17:55 Radiologist: Mike

</td> Rodrigo ALMARAZ Resident Radiologistt Attending Radiologist: Carlene Christie Finalizing Radiologist: Carlene Christie Transcribed Date: 02/12/2019 17:16 Finalized Date: 02/12/2019 17:55 Ankle 3 (PACSIMAGE <td> 02/12/2019 [place] Views Rt 16:16</td><td> [facility] ) Ankle 3 Views Rt Health Care Final Result </td><td><paragra Corporati on Name: [facility], styleCode="Italic TRAUMA s">(PACSIMAGE Sex: F )</paragraph><br/ : >
Final 09/15/1965 Result Location: F

Admitting Name: ROMAYOR, Physician: TRAUMA EMERGENCY
MRN: SERVICE [id number] Sex: F Requesting
Physician: : 09/15/1965 MANDI Location: [place]
Exam: ANKLE Admitting RIGHT 3+ Physician: KIM EMERGENCY SERVICE 02/12/2019
22:58 Requesting HISTORY: Physician: MANDI [place] TECHNIQUE: 3

views of the Exam: ANKLE RIGHT right ankle. 3+ VIEWS Suboptimally 02/12/2019 22:58 positioned lateral

view. HISTORY: Trauma COMPARISON: No priors

are TECHNIQUE: 3 available views of the FINDINGS: right ankle. There is Suboptimally diffuse soft positioned tissue
swelling lateral view. visualized

about the COMPARISON: right No priors are ankle joint. available

Fracture FINDINGS: fragments at

the medial There is diffuse malleolus, soft tissue which could swelling be chronic visualized about rather than the right acute.
Otherwise, ankle joint. no visible

acute Fracture fracture. fragments at the Ankle medial malleolus, mortise is which could be intact. chronic Talar dome
rather is smooth. than acute.

IMPRESSION: Otherwise, no Fracture visible acute fragments at fracture. the medial

malleolus, Ankle mortise is which could intact. be chronic

rather than Talar dome is acute, smooth. correlate

clinically IMPRESSION:

Resident Fracture Radiologist: fragments at the Tylor Perez medial malleolus, Resident which could be Radiologist chronic Attending
rather Radiologist: than acute, Malorie zaidi MD clinically Finalizing Radiologist:

<b Malorie Cutler r/> Resident MD Radiologist: Transcribed Tylor Perez MD Date: Resident 02/12/2019 Radiologist 23:23
Finalized Attending Date: Radiologist: 02/12/2019 Malorie Cutler MD 23:30
Finalizing Radiologist: Malorie Cutler MD
Transcribed Date: 02/12/2019 23:23
Finalized Date: 02/12/2019 23:30

</td> Head (PACSIMAGE <td> 02/12/2019 [place] Without 15:48</td><td> [facility] Contrast-CT ) Head Without Health Care Final Result Contrast-CT Corporation Name: </td><td><paraa ROMAYOR, TRAUMA styleCode="Italic s">(PACSIMAGE Sex: F : )</paragraph><br/ 09/15/1965 >
Final Location: F Result Admitting

Physician: Name: ROMAYOR, EMERGENCY TRAUMA SERVICE
MRN: Requesting [id number] Sex: F Physician:
BOSSMAN KIRKLAND : 09/15/1965 Exam: CT Location: F HEAD C-
02/12/2019 Admitting 16:10 Physician: CLINICAL EMERGENCY SERVICE HISTORY:
Trauma Requesting Physician: BOSSMAN COMPARISON: KIRKLAND None.

TECHNIQUE: Exam: CT HEAD C- CT scan 02/12/2019 16:10 of the head:

Noncontrast CLINICAL CT scan of HISTORY: Trauma the head is performed

from the COMPARISON: base of None. the skull to

vertex TECHNIQUE: utilizing [address] scan of the helical head: images.
CT scan Noncontrast CT maxillofacia scan of the head l region: is performed from Noncontrast the base of CT scan of
the the skull to maxillofacia vertex utilizing l region is 3 mm axial performed helical images. utilizing 1.[address] images. scan Coronal and maxillofacial sagittal region: reformatted
images are Noncontrast CT provided for scan of the interpretati maxillofacial on.. region is Up-to-date performed CT equipment
using utilizing 1.5 mm Automatic axial images. Exposure

Control, Coronal and dose sagittal modulation, reformatted and images are iterative provided for reconstructi interpretation.. on dose reduction

software Up-to-date CT was equipment using employed. Automatic The total Exposure Control, study DLP is dose approximatel
y 1326 modulation, and mGy-cm. iterative The reconstruction following dose reduction accession software numbers are
was related to employed. this dose
The report total study DLP [id number]}: is approximately [id number] 1326 mGy-cm. (accession

[id number]), The following Up-to-date accession numbers CT equipment are related to using this dose report Automatic
Exposure [id number]}: Control,
dose 4299857 modulation,
and (accession iterative [id number]), reconstructi Up-to-date CT on dose equipment using reduction Automatic software was
employed. Exposure Control, The total dose modulation, study DLP is and iterative approximatel reconstruction y 416
mGy-cm. dose reduction (accession software was [id number]) employed.
The FINDINGS: total study DLP CT scan of is approximately the head: 416 mGy-cm. There is no
evidence of (accession acute [id number]) intracranial

hemorrhage, FINDINGS: mass-effect,

or shift CT scan of of the the head: midline
structures. There is no Atrophy and evidence of acute chronic intracranial small hemorrhage, vessel white mass-effect, matter
changes are or shift of the present. midline Small structures. hypodensity Atrophy and in the chronic small right
occipital vessel white lobe may matter changes represent a are present. small age Small hypodensity indeterminat in e
the infarction. right occipital Hypodensitie lobe may s in the represent a small right age indeterminate greater than
left deep infarction. rico nuclei Hypodensities in may the right greater represent than left deep age-indeterm
inate rico nuclei may lacunar represent infarctions. age-indeterminate If there lacunar is clinical infarctions. concern for
acute If there is infarction clinical concern MRI of the for acute brain may be infarction MRI of obtained as the clinically
brain appropriate. may be obtained No evidence as clinically of appropriate. No hydrocephalu evidence s. There is
of no evidence hydrocephalus. of depressed There is no calvarial evidence of fracture. depressed CT scan calvarial maxillofacia
l region: fracture. There is no

acute CT scan maxillofacia maxillofacial l fracture. region: The patient
There is is no acute edentulous. maxillofacial Mucosal fracture. The thickening patient is is present edentulous. in scattered
ethmoid air Mucosal cells. A thickening is small amount present in of mucosal scattered ethmoid thickening air cells. is present
A in the right small amount of maxillary mucosal paranasal thickening is sinus. The present in the extraocular right muscles are
symmetric maxillary bilaterally. paranasal sinus. The extraocular IMPRESSION: muscles are CT scan symmetric of the head:
1. No bilaterally. evidence of acute

intracranial IMPRESSION: hemorrhage,

mass-effect, CT scan of or shift the head: of the
1. midline No evidence of structures. acute 2. intracranial Atrophy and hemorrhage, chronic mass-effect, small vessel
white matter or shift of the changes are midline present. structures. 3. Small

hypodensity 2. Atrophy and in the right chronic small occipital vessel white lobe may matter changes represent are a small age
indeterminat present. e

infarction. 3. Small 4. hypodensity in Hypodensitie the right s in the occipital lobe right may represent greater than
left deep a small age rico nuclei indeterminate may infarction. represent

age-indeterm 4. inate Hypodensities in lacunar the right greater infarctions. than left deep If there rico nuclei is clinical
concern for may represent acute age-indeterminate infarction lacunar MRI of the infarctions. If brain may there be obtained
is as clinical concern clinically for acute appropriate. infarction MRI of CT scan the brain may maxillofacia
l region: be obtained as No evidence clinically of acute appropriate. fracture to

the CT scan visualized maxillofacial maxillofacia region: l
No structures. evidence of acute fracture to the visualized Resident maxillofacial Radiologist:
Attending structures. Radiologist: Ashwini Sahu

<ashley ALMARAZ r/>

<br/ Finalizing > Resident Radiologist: Radiologist: Ashwini Sahu
Attending Transcribed Radiologist: Date: Ashwini Sahu MD 02/12/2019
16:25 Finalizing Finalized Radiologist: Date: Ashwini Sahu MD 02/12/2019
16:26 Transcribed Date: 02/12/2019 16:25
Finalized Date: 02/12/2019 16:26

</td> CT LS Spine (PACSIMAGE <td> 02/12/2019 [place] 2D Recon 16:02</td><td> CT [facility] ) LS Spine 2D Recon [facility] Final Result </td><td><paragr Corporati on Name: aph TRAUMA, styleCode="Italic TAINA s">(PACSIMAGE Sex: F )</paragraph><br/ : >
Final 09/15/1965 Result Location: F

Admitting Name: TRAUMA, Physician: TAINA EMERGENCY
MRN: SERVICE [id number] Sex: F Requesting
Physician: : 09/15/1965 BOSSMAN KIRKLAND Location: F Exam: CT
LS SPINE 2D Admitting RECON Physician: 02/12/2019 EMERGENCY SERVICE 16:32
CLINICAL Requesting INDICATION: Physician: BOSSMAN KIRKLAND TECHNIQUE:

Axial, Exam: CT LS SPINE sagittal and 2D RECON coronal 02/12/2019 16:32 reconstructi on images

of the CLINICAL thoracic and INDICATION: lumbar spine Trauma were

generated TECHNIQUE: Axial, from source sagittal and images of coronal a CT thorax. reconstruction These images reconstructi
of the on images thoracic and are lumbar spine were submitted generated from for source images interpretati
on. of a CT thorax. COMPARISON: These None. reconstruction FINDINGS: images are There is submitted for age-indeterm
inate interpretation. compression fracture of

the L1 COMPARISON: None. vertebral body.

Retropulsed FINDINGS: There fragments at is the inferior age-indeterminate endplate compression of L1 result fracture of in moderate
narrowing of the L1 vertebral the osseous body. Retropulsed canal at fragments at the this level. inferior There is a
large endplate of L1 Schmorl's result in node in the moderate inferior narrowing of the endplate of osseous canal T10.
Extensive at this level. endplate There is a large degenerative Schmorl's node in changes are the inferior noted
elsewhere in endplate of T10. the Extensive thoracolumba endplate r spine. degenerative There is changes are multilevel
degenerative noted elsewhere change of in the the thoracolumbar intervertebr spine. There is al discs. multilevel Extensive
facet degenerative joint change of the arthropathy intervertebral is present. discs. Extensive Degenerative facet narrowing of
joint the lumbar arthropathy is spinal canal present. is noted, Degenerative worst at narrowing of the L4/5, where lumbar it is
spinal moderate in canal is noted, degree. worst at L4/5, IMPRESSION: where it is moderate in Age-indeterm
inate degree. compression

fracture of IMPRESSION: L1.

Extensive degenerative Age-indeterminate changes. compression Moderate fracture of L1. 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
and L4/5.. changes. Moderate Please narrowing of the see spinal canal at separately L1 and L4/5.. dictated

report of CT Please see thorax for separately description dictated report of the of CT thorax for extraspinal description structures.
of the extraspinal Resident structures. Radiologist: Attending

<b Radiologist: r/> Resident Zion Radiologist: Ranulfo ALMARAZ
Finalizing Attending Radiologist: Radiologist: Zion Winchester MD
Transcribed Finalizing Date: Radiologist: 02/12/2019 [place] Winchester MD 16:54
Finalized Transcribed Date: Date: 02/12/2019 02/12/2019 16:54 17:31
Finalized Date: 02/12/2019 17:31

</td> CT T Spine (PACSIMAGE <td> 02/12/2019 [place] 2D Recon 16:02</td><td> CT [facility] ) T Spine 2D Recon [facility] Final Result </td><td><paragra Corporati on Name: ph TRAUMA, styleCode="Italic ROMAYOR s">(PACSIMAGE Sex: F )</paragraph><br/ : >
Final 09/15/1965 Result Location: F

Admitting Name: TRAUMA, Physician: ROMAYOR EMERGENCY
MRN: SERVICE [id number] Sex: F Requesting
Physician: : 09/15/1965 BOSSMAN KIRKLAND Location: F Exam: CT
T SPINE 2D Admitting RECON Physician: 02/12/2019 EMERGENCY SERVICE 16:31
CLINICAL Requesting INDICATION: Physician: BOSSMAN KIRKLAND TECHNIQUE:

Axial, Exam: CT T SPINE sagittal and 2D RECON coronal 02/12/2019 16:31 reconstructi on images

of the CLINICAL thoracic and INDICATION: lumbar spine Trauma were

generated TECHNIQUE: Axial, from source sagittal and images of coronal a CT thorax. reconstruction These images reconstructi
of the on images thoracic and are lumbar spine were submitted generated from for source images interpretati
on. of a CT thorax. COMPARISON: These None. reconstruction FINDINGS: images are There is submitted for age-indeterm
inate interpretation. compression fracture of

the L1 COMPARISON: None. vertebral body.

Retropulsed FINDINGS: There fragments at is the inferior age-indeterminate endplate compression of L1 result fracture of in moderate
narrowing of the L1 vertebral the osseous body. Retropulsed canal at fragments at the this level. inferior There is a
large endplate of L1 Schmorl's result in node in the moderate inferior narrowing of the endplate of osseous canal T10.
Extensive at this level. endplate There is a large degenerative Schmorl's node in changes are the inferior noted
elsewhere in endplate of T10. the Extensive thoracolumba endplate r spine. degenerative There is changes are multilevel
degenerative noted elsewhere change of in the the thoracolumbar intervertebr spine. There is al discs. multilevel Extensive
facet degenerative joint change of the arthropathy intervertebral is present. discs. Extensive Degenerative facet narrowing of
joint the lumbar arthropathy is spinal canal present. is noted, Degenerative worst at narrowing of the L4/5, where lumbar it is
spinal moderate in canal is noted, degree. worst at L4/5, IMPRESSION: where it is moderate in Age-indeterm
inate degree. compression

fracture of IMPRESSION: L1.

Extensive degenerative Age-indeterminate changes. compression Moderate fracture of L1. 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
and L4/5.. changes. Moderate Please narrowing of the see spinal canal at separately L1 and L4/5.. dictated

report of CT Please see thorax for separately description dictated report of the of CT thorax for extraspinal description structures.
of the extraspinal Resident structures. Radiologist: Attending

<b Radiologist: r/> Resident Zion Radiologist: Ranulfo ALMARAZ
Finalizing Attending Radiologist: Radiologist: [place] Winchester MD
Transcribed Finalizing Date: Radiologist: 02/12/2019 [place] Winchester MD 16:54
Finalized Transcribed Date: Date: 02/12/2019 02/12/2019 16:54 17:31
Finalized Date: 02/12/2019 17:31

</td> Maxillofaci (PACSIMAGE <td> 02/12/2019 [facility] W/Out 15:55</td><td> [place] Contrast-CT ) [facility] Final Result W/Out Contrast-CT Corporati on Name: </td><td><paragr TAINA, aph TRAUMA styleCode="Italic s">(PACSIMAGE Sex: F : )</paragraph><br/ 09/15/1965 >
Final Location: F Result Admitting

Physician: Name: ROMAYOR, EMERGENCY TRAUMA SERVICE
MRN: Requesting [id number] Sex: F Physician:
BOSSMAN KIRKLAND : 09/15/1965 Exam: CT Location: F MAXILLOFACIA
L C- Admitting 02/12/2019 Physician: 16:15 EMERGENCY SERVICE CLINICAL
HISTORY: Requesting Trauma Physician: BOSSMAN KIRKLAND COMPARISON:

None. Exam: CT TECHNIQUE: MAXILLOFACIAL C- CT scan 02/12/2019 16:15 of the head:

Noncontrast CLINICAL CT scan of HISTORY: Trauma the head is performed

from the COMPARISON: base of None. the skull to

vertex TECHNIQUE: utilizing [address] scan of the helical head: images.
CT scan Noncontrast CT maxillofacia scan of the head l region: is performed from Noncontrast the base of CT scan of
the the skull to maxillofacia vertex utilizing l region is 3 mm axial performed helical images. utilizing 1.[address] images. scan Coronal and maxillofacial sagittal region: reformatted
images are Noncontrast CT provided for scan of the interpretati maxillofacial on.. region is Up-to-date performed CT equipment
using utilizing 1.5 mm Automatic axial images. Exposure

Control, Coronal and dose sagittal modulation, reformatted and images are iterative provided for reconstructi interpretation.. on dose reduction

software Up-to-date CT was equipment using employed. Automatic The total Exposure Control, study DLP is dose approximatel
y 1326 modulation, and mGy-cm. iterative The reconstruction following dose reduction accession software numbers are
was related to employed. this dose
The report total study DLP [id number]}: is approximately 0750420 1326 mGy-cm. (accession

[id number]), The following Up-to-date accession numbers CT equipment are related to using this dose report Automatic
Exposure [id number]}: Control,
dose 8191456 modulation,
and (accession iterative [id number]), reconstructi Up-to-date CT on dose equipment using reduction Automatic software was
employed. Exposure Control, The total dose modulation, study DLP is and iterative approximatel reconstruction y 416
mGy-cm. dose reduction (accession software was [id number]) employed.
The FINDINGS: total study DLP CT scan of is approximately the head: 416 mGy-cm. There is no
evidence of (accession acute [id number]) intracranial

hemorrhage, FINDINGS: mass-effect,

or shift CT scan of of the the head: midline
structures. There is no Atrophy and evidence of acute chronic intracranial small hemorrhage, vessel white mass-effect, matter
changes are or shift of the present. midline Small structures. hypodensity Atrophy and in the chronic small right
occipital vessel white lobe may matter changes represent a are present. small age Small hypodensity indeterminat in e
the infarction. right occipital Hypodensitie lobe may s in the represent a small right age indeterminate greater than
left deep infarction. rico nuclei Hypodensities in may the right greater represent than left deep age-indeterm
inate rico nuclei may lacunar represent infarctions. age-indeterminate If there lacunar is clinical infarctions. concern for
acute If there is infarction clinical concern MRI of the for acute brain may be infarction MRI of obtained as the clinically
brain appropriate. may be obtained No evidence as clinically of appropriate. No hydrocephalu evidence s. There is
of no evidence hydrocephalus. of depressed There is no calvarial evidence of fracture. depressed CT scan calvarial maxillofacia
l region: fracture. There is no

acute CT scan maxillofacia maxillofacial l fracture. region: The patient
There is is no acute edentulous. maxillofacial Mucosal fracture. The thickening patient is is present edentulous. in scattered
ethmoid air Mucosal cells. A thickening is small amount present in of mucosal scattered ethmoid thickening air cells. is present
A in the right small amount of maxillary mucosal paranasal thickening is sinus. The present in the extraocular right muscles are
symmetric maxillary bilaterally. paranasal sinus. The extraocular IMPRESSION: muscles are CT scan symmetric of the head:
1. No bilaterally. evidence of acute

intracranial IMPRESSION: hemorrhage,

mass-effect, CT scan of or shift the head: of the
1. midline No evidence of structures. acute 2. intracranial Atrophy and hemorrhage, chronic mass-effect, small vessel
white matter or shift of the changes are midline present. structures. 3. Small

hypodensity 2. Atrophy and in the right chronic small occipital vessel white lobe may matter changes represent are a small age
indeterminat present. e

infarction. 3. Small 4. hypodensity in Hypodensitie the right s in the occipital lobe right may represent greater than
left deep a small age rico nuclei indeterminate may infarction. represent

age-indeterm 4. inate Hypodensities in lacunar the right greater infarctions. than left deep If there rico nuclei is clinical
concern for may represent acute age-indeterminate infarction lacunar MRI of the infarctions. If brain may there be obtained
is as clinical concern clinically for acute appropriate. infarction MRI of CT scan the brain may maxillofacia
l region: be obtained as No evidence clinically of acute appropriate. fracture to

the CT scan visualized maxillofacial maxillofacia region: l
No structures. evidence of acute fracture to the visualized Resident maxillofacial Radiologist:
Attending structures. Radiologist: Ashwini Sahu

<ashley ALMARAZ r/>

<br/ Finalizing > Resident Radiologist: Radiologist: Ashwini Sahu
Attending Transcribed Radiologist: Date: Ashwini Sahu MD 02/12/2019
16:25 Finalizing Finalized Radiologist: Date: Ashwini Sahu MD 02/12/2019
16:26 Transcribed Date: 02/12/2019 16:25
Finalized Date: 02/12/2019 16:26

</td> ID Date Data Source [id number] 02/13/2019 01:10:54 PM EDT [facility] [id number] Corporation Name Value Range Interpretation Description Data Sup porting Code Source(s) Document(s ) Leukocytes 12.0 k/mm3 4.8-10 <td> 02/13/2019 [place] [#/volume] in .8 01:24</td><td> [facility] Blood by k/mm3 [facility] Automated count </td><td><jorge luis Corporat ion raph styleCode="Bold "> 12.0 H </paragraph>
(4.8-10.8) k/mm3 </td> Erythrocytes 4.18 m/mm3 3.90-5 <td> 02/13/2019 [facility] r [#/volume] in .20 01:24</td><td> County Blood m/mm3 RBC </td><td> [facility] Corporation 4.18
(3.90-5.20) m/mm3 </td> Erythrocyte 85.6 fL 81.0-9 <td> 02/13/2019 [place] mean 9.0 fL 01:24</td><td> [facility] corpuscular MCV </td><td> Health Care volume [[employer] volume] by 85.6 Automated count
(81.0-99.0) fL </td> Hemoglobin 11.5 g/dL 12.0-1 <td> 02/13/2019 [place] [Mass/volume] 6.0 01:24</td><td> [facility] in Blood g/dL [facility] </td><td><[employer] raph styleCode="Bold "> 11.5 L </paragraph>
(12.0-16.0) g/dL </td> Hematocrit 35.8 % 37.0-4 <td> 02/13/2019 [place] [Volume 7.0 % 01:24</td><td> [place] Fraction] of HCT [facility] Blood by </td><td><[employer] Automated count raph styleCode="Bold "> 35.8 L </paragraph>
(37.0-47.0) % </td> Platelet mean 11.0 fL 9.8-12 <td> 02/13/2019 [facility] r volume [Entitic .8 fL 01:24</td><td> County volume] in MPV </td><td> Health Care Blood by Corporation Automated count 11.0
(9.8-12.8) fL </td> Erythrocyte 27.5 pg 27.0-3 <td> 02/13/2019 [place] mean 1.5 pg 01:24</td><td> [facility] corpuscular MCH </td><td> Health Care hemoglobin Corporation [Entitic mass] 27.5 by Automated count
(27.0-31.5) pg </td> Erythrocyte 32.1 % 32.0-3 <td> 02/13/2019 [place] mean 6.0 % 01:24</td><td> [facility] corpuscular MCHC </td><td> Health Care hemoglobin Corporation concentration 32.1 [Mass/volume] in Blood from
Fetus by (32.0-36.0) % Automated count </td> Erythrocyte 12.7 % 11.5-1 <td> 02/13/2019 [place] distribution 4.5 % 01:24</td><td> [facility] width [Entitic RDW </td><td> Health Car e volume] by Corporation Automated count 12.7
(11.5-14.5) % </td> Platelets 177 k/mm3 160-41 <td> 02/13/2019 [place] [#/volume] in 0 01:24</td><td> [facility] Blood by k/mm3 Platelet Count [facility] Automated count </td><td> [employer] 177
(160-410) k/mm3 </td> Lymphocytes 27.5 % 17.0-5 <td> 02/12/2019 [place] [#/volume] in 0.0 % 15:35</td><td> [facility] Blood by Lymphocytes [facility] Automated count </td><td> [employer] 27.5
(17.0-50.0) % </td> Monocytes/Leuko 7.3 % 0.0-11 <td> 02/12/2019 [facility] cytes [Pure .0 % 15:35</td><td> County number Monocytes. Health Care fraction] in </td><td> [facility] Blood by Automated count 7.3
(0.0-11.0) % </td> Basophils+Eosin 2.5 % 0.0-5. <td> 02/12/2019 [facility] ophils+Monocyte 0 % 15:35</td><td> County s [#/volume] in Eosinophils Health Care Blood by </td><td> [employer] Automated count 2.5
(0.0-5.0) % </td> Basophils 0.5 % 0.0-2. <td> 02/12/2019 [place] [#/volume] in 0 % 15:35</td><td> [facility] Blood by Basophils [facility] Automated count </td><td> [employer] 0.5
(0.0-2.0) % </td> Neutrophils [#] 61.8 % 40.0-7 <td> 02/12/2019 [facility] in Body fluid 6.0 % 15:35</td><td> [facility] by Manual count Neutrophils [facility] Care </td><td> [employer] 61.8
(40.0-76.0) % </td> Sodium 140 mEq/L 135-14 <td> 02/13/2019 [place] [Moles/volume] 5 01:24</td><td> [facility] in Serum or mEq/L Sodium-Serum [facility] Care Plasma </td><td> [employer] 140
(135-145) mEq/L </td> Glucose 248 mg/dL 70-105 <td> 02/13/2019 [place] [Mass/volume] mg/dL 01:24</td><td> [facility] in Blood Glucose-Serum [facility] </td><td><jorge luis [employer] raph styleCode="Bold "> 248 H </paragraph>
(70-105) mg/dL </td> Immature 0.4 % 0.0-0. <td> 02/12/2019 [place] granulocytes/10 5 % 15:35</td><td> [facility] 0 leukocytes in IG% </td><td> [facility] Blood by [employer] Automated count 0.4
(0.0-0.5) %
The IG fraction represents metamyelocytes, myelocytes and/or
promyelocytes and is only reported as part of the automated
differential when found at a percentage of less than 6.
If higher than 6%, a manual differential will be performed.

(0.0-0.5) % </td> Urea nitrogen 16 mg/dL 6-22 <td> [facility] [[facility]] mg/dL 01:24</td><td> County in Blood BUN </td><td> Health Care [employer] 16
(6-22) mg/dL </td> Chloride 107 mEq/L 98-107 <td> 02/13/2019 [place] [Moles/volume] mEq/L 01:24</td><td> County in Serum or Chloride Health Care Plasma </td><td> [employer] 107
(98-107) mEq/L </td> Potassium 3.7 mEq/L 3.5-5. <td> 02/13/2019 [place] [Moles/volume] 1 01:24</td><td> [place] in Serum or mEq/L Potassium-Serum Health Care Plasma </td><td> [employer] 3.7
(3.5-5.1) mEq/L </td> Carbon dioxide, 23 mEq/L 22-30 <td> 02/13/2019 [facility] total mEq/L 01:24</td><td> [facility] [Moles/volume] CO2 </td><td> Health Car e in Serum or Corporation Plasma 23
(22-30) mEq/L </td> Alanine 17 U/L 6-55 <td> 02/12/2019 [place] aminotransferas U/L 15:35</td><td> County e [Enzymatic ALT (SGPT) Health Care activity/volume </td><td> [employer] ] in Serum or Plasma 17
(6-55) U/L </td> Creatinine 1.07 mg/dL 0.57-1 <td> 02/13/2019 [place] [Moles/volume] .11 01:24</td><td> County in Serum or mg/dL Creatinine. Health Care Plasma </td><td> [employer] 1.07
(0.57-1.11) mg/dL </td> Aspartate 17 U/L 4-35 <td> 02/12/2019 [place] aminotransferas U/L 15:35</td><td> County e [Enzymatic AST (SGOT) Health Care activity/volume </td><td> [employer] ] in Serum or Plasma 17
(4-35) U/L </td> Bilirubin.total 0.3 mg/dL 0.2-1. <td> 02/12/2019 [facility] [Mass/volume] 3 15:35</td><td> County in Blood mg/dL Bilirubin - [facility] [employer] </td><td> 0.3
(0.2-1.3) mg/dL </td> Albumin 4.1 g/dL 3.4-4. <td> 02/12/2019 [place] [Mass/volume] 8 g/dL 15:35</td><td> County in Serum or Albumin Health Care Plasma </td><td> [employer] 4.1
(3.4-4.8) g/dL </td> Proteins - 7.6 g/dL 6.4-8. <td> 02/12/2019 [place] Total 3 g/dL 15:35</td><td> [facility] Proteins - [place] [employer] in [employer] </td><td> 7.6
(6.4-8.3) g/dL </td> Anion gap in 10 mEq/L 7-13 <td> 02/13/2019 [place] Serum or Plasma mEq/L 01:24</td><td> [facility] Anion Gap Health Care </td><td> [facility] 10
(7-13) mEq/L </td> Calcium 9.7 mg/dL 8.6-10 <td> 02/13/2019 [place] [Mass/volume] .2 01:24</td><td> [facility] in Blood mg/dL Calcium Health Care </td><td> [facility] 9.7
(8.6-10.2) mg/dL </td> Globulin 3.5 gm/dL 2.9-4. <td> 02/12/2019 [place] [Mass/volume] 0 15:35</td><td> [facility] in Serum gm/dL Globulin Health Care </td><td> [facility] 3.5
(2.9-4.0) gm/dL </td> Hemolysis index No <td> 02/13/2019 [facility] of Serum or Hemolysis 01:24</td><td> [facility] Plasma Hemolysis Index [facility] </td><td> [facility] No Hemolysis
</td> Lipemic index No Lipemia <td> 02/13/2019 [facility] er of Serum or 01:24</td><td> [facility] Plasma Lipemia Index Health Care </td><td> [facility] No Lipemia
</td> Prothrombin 10.8 secs 9.8-12 <td> 02/13/2019 [place] time (PT) .0 06:36</td><td> [facility] secs Prothrombin Health Care Time. [facility] </td><td> 10.8
(9.8-12.0) secs
Result confirmed. Test repeated.

(9.8-12.0) secs </td> aPTT panel - 29.5 secs 25.0-3 <td> 02/13/2019 [place] Platelet poor 2.0 06:36</td><td> [facility] plasma secs Partial [facility] Thromboplastin [facility] Time </td><td> 29.5
(25.0-32.0) secs </td> Icteric index Not <td> 02/13/2019 [facility] r of Serum or Icteric 01:24</td><td> [facility] Plasma Icteric Index [facility] </td><td> [facility] Not Icteric
</td> Phosphate 2.4 mg/dL 2.3-4. <td> 02/13/2019 [place] [Mass/volume] 7 01:24</td><td> [facility] in Serum or mg/dL Inorganic [facility] Care Plasma Phosphorus [facility] </td><td> 2.4
(2.3-4.7) mg/dL </td> Magnesium 1.8 mg/dL 1.6-2. <td> 02/13/2019 [place] [Mass/volume] 6 01:24</td><td> County in Serum or mg/dL Magnesium Level Health Care Plasma </td><td> [facility] 1.8
(1.6-2.6) mg/dL </td> Amylase 56 U/L 22-100 <td> 02/12/2019 [place] [Enzymatic U/L 15:35</td><td> County activity/volume Amylase Level [facility] e ] in Serum or </td><td> [facility] Plasma 56
(22-100) U/L </td> Glucose 328 mg/dL 70-105 <td> 02/13/2019 [place] [Mass/volume] mg/dL 11:23</td><td> [facility] in Capillary Glucose - [facility] Care blood by [employer] Glucometer </td><td><jorge luis raph styleCode="Bold "> 328 H </paragraph>
(70-105) mg/dL </td> Procedure Social History Code Duration Value Status Description Data Source(s ) Smoking 09/20/2019 Tobacco smoking completed Tobacco smoking [facility] 11:47:00 PM EDT consumption consumption [facility] unknown (finding) unknown (finding) Smoking 08/21/2019 Never smoked completed Never smoked [facility] 12:41:00 PM EST tobacco (finding) tobacco (find ing) Hospital Smoking 08/21/2019 Never smoked completed Never smoked [facility] 12:41:00 PM EST tobacco (finding) tobacco (find ing) Hospital Smoking Never smoker completed Never smoker [facility] Vital Signs ID Date Data Source UNK Name Value Range Interpretation Code Description Data Source(s) Diastolic blood 58 mm[Hg] 58 mm[Hg] [facility] Systolic blood 108 mm[Hg] 108 mm[Hg] [facility] Respiratory rate 20 /min 20 /min [facility] Heart rate 75 /min 75 /min [facility] Body temperature 36.22202 36.57956 [facility] Body temperature 97.9 [degF] 97.9 [degF] [facility] Body mass index 23.0 kg/m2 23.0 kg/m2 [facility] (BMI) [Ratio] Hospital Body weight 130.27 130.27 [lb_av] [facility] [lb_av[facility] Diastolic blood 81 mm[Hg] 81 mm[Hg] [facility] pressure Hospital Systolic blood 184 mm[Hg] 184 mm[Hg] [facility] pressure Hospital Respiratory rate 18 /min 18 /min [facility] Heart rate 80 /min 80 /min [facility] Body temperature 36.01887 36.99983 [facility] Body temperature 97.9 [degF] 97.9 [degF] [facility] Body mass index 24.0 kg/m2 24.0 kg/m2 [facility] (BMI) [Ratio] Hospital Body weight 140.30 140.30 [lb_av] [facility] [lb_av[facility] Body mass index 24.0 kg/m2 24.0 kg/m2 [facility] (BMI) [Ratio] Hospital Body weight 140.30 140.30 [lb_av] [facility] ins [lb_av] Hospital Diastolic blood 81 mm[Hg] 81 mm[Hg] [facility] pressure Hospital Systolic blood 190 mm[Hg] 190 mm[Hg] [facility] pressure Hospital Respiratory rate 18 /min 18 /min [facility] Heart rate 78 /min 78 /min [facility] Body temperature 37.23471 37.27026 [facility] Body temperature 98.6 [degF] 98.6 [degF] [facility] Diastolic blood 60 {} Normal (applies to 60 {} [place] [facility] non-numeric results) [facility] Systolic blood 145 {} Normal (applies to 145 {} [place] [facility] non-numeric results) [facility] First Respiration 16.0000 {} Normal (applies to 16.0000 {} [place] rate Set non-numeric results) [facility] Heart rate 72.0000 {} Normal (applies to 72.0000 {} [place] non-numeric results) [facility] Body temperature 97.9000 {} Normal (applies to 97.9000 {} [place] non-numeric results) [facility] wt - obtain Normal (applies to {} [place] non-numeric results) [facility] weight - kg 68.7000 {} Normal (applies to 68.7000 {} [place] non-numeric results) [facility]
[2020-04-04] MEDS ORDERED: CEFTRIAXONE 1,000 MG in DEXTROSE 5%-WATER - 50 ML IVPB ONE (13:15)
[2020-04-04 13:17] LABS: GLUCOSE,RANDOM 229 mg/dL (74-106)
[2020-04-04] MEDS ORDERED: LACTATED RINGERS SOLUTION 1000 ML INFUS.BAG IV ONE (13:29)
[2020-04-04] MEDS ORDERED: CEFTRIAXONE 0 GM/0 ML BAG ONE (13:36)
[2020-04-04] MEDS ORDERED: CEFTRIAXONE 1 GM/50 ML BAG ONE (13:52)
[2020-04-04] MEDS ORDERED: ACETAMINOPHEN 325 MG TABLET (FP) PO PRN (14:12)
--- NOTE | 2020-04-04 14:27 | HP ---
CHIEF COMPLAINT: UTI PCP: Dr. Arias HISTORY OF PRESENT ILLNESS: Patient is a 89 y/o female with a history of dementia, metabolic encephalopathy, multiple UTI's, HTN, and DM who presented to the hospital for AMS. History gathered from patents daughter. Patient ws not acting like herself last night, was refusing ot take po meds and seemed agitated. She is typically more compliant with her medications. She has had multiple UTI's in the past. Patient does not do weel at the hospital per daughter, she sun down's often. She has a 24 hour aid. ER course was notable for: (1) (2) (3) Recent Travel: PAST MEDICAL HISTORY: dementia, metabolic encephalopathy, multiple UTI's, HTN, and DM PAST SURGICAL HISTORY: hip surgery within the year Social History: Smoking: denies Alcohol: denies Drugs: denies Allergies No Known Allergies Allergy (Verified 04/04/20 11:04) HOME MEDICATIONS: Home Medications Medication Instructions Recorded Aspirin Coated [Ecotrin -] 81 mg PO DAILY #30 tablet.ec 09/29/18 Losartan Potassium 25 mg PO DAILY 11/10/19 Metformin HCl [Glucophage] 500 mg PO DAILY 11/10/19 Ascorbate Calcium [Vitamin C] 500 mg PO BID #28 tablet 11/12/19 Zinc Sulfate 220 mg PO BID #28 tablet 11/12/19 Acetaminophen [Tylenol] 325 mg PO Q6H PRN 02/23/20 Atorvastatin Ca [Lipitor] 80 mg PO HS 04/04/20 Lorazepam [Ativan] 0.5 mg PO BID PRN 04/04/20 traZODone HCL [Trazodone HCl] 50 mg PO HS 04/04/20 REVIEW OF SYSTEMS unable to answer PHYSICAL EXAMINATION Vital Signs - 24 hr 04/04/20 04/04/20 11:09 12:00 Temperature 98.3 F Pulse Rate 83 Pulse Rate [ 79 Left Radial] Respiratory 16 16 Rate Blood Pressure 145/90 Blood Pressure 149/57 L [Right Arm] O2 Sat by Pulse 100 98 Oximetry (%) GENERAL: Awake, mildly distressed HEAD: Normal with no signs of trauma. LUNGS: Breath sounds equal, clear to auscultation bilaterally. No wheezes, and no crackles. No accessory muscle use. HEART: systolic murmur ABDOMEN: Soft, nontender, not distended, normoactive bowel sounds, no guarding, tenderness to lower abdominal palpation MUSCULOSKELETAL: Normal range of motion at all joints. LOWER EXTREMITIES: No peripheral edema. SKIN: Warm, dry, normal turgor, no rashes or lesions noted, normal capillary refill. CBC, BMP 04/04/20 11:35 04/04/20 11:35 ASSESSMENT/PLAN: Patient is a 89 y/o female with a history of dementia, metabolic encephalopathy, multiple UTI's, HTN, and DM who is admitted for AMS 2/2 to UTI. #UTI causing AMS - ceftriaxone daily - hx of EBL - f/u culture - fall risk precautions - Head CT: no acute changes - continue fluids #dementia - patient has a history of sunding - on trazadone - ativan 1mg prn for agitation #HLD - statin #DM - continue SS FEN - diabetic diet, puree Dispo: can likely dc tomorrow if lactic and trop rending down Family Medical History Family History: As Documented Visit type - Medication Review Med list reviewed for High Risk Meds patients 65 and older: Yes - Emergency Visit Emergency Visit: Yes ED Registration Date: 04/04/20 Care time: The patient presented to the Emergency Department on the above date and was hospitalized for further evaluation of their emergent condition. - New Patient This patient is new to me today: Yes Date on this admission: 04/05/20 - Critical Care Critical Care patient: No ATTENDING PHYSICIAN STATEMENT I saw and evaluated the patient. I reviewed the resident's note and discussed the case with the resident. I agree with the resident's findings and plan as documented. SUBJECTIVE: OBJECTIVE: ASSESSMENT AND PLAN:
[2020-04-04] MEDS: SODIUM CHLORIDE 0.45% 1,000 ML IV SCH (14:43)
--- OUTSIDE RECORDS SUMMARY | 2020-04-04 15:42 | XMS ---
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 [facility] Value Range Interpretation Code Description Data Kelly rce(s) Supporting Document(s ) Bilirubin. NEGATIVE [facility] total Hospital [Presence] in Urine by Test strip ID Date Data Source [id number] 09/21/2019 10:31:00 PM EDT [facility] Value Range Interpretation Description Data Sup porting Code Source(s) Document(s ) Urobilinogen 0.2 [facility] [Units/volume] mg/dL Hospital in Urine by Test strip ID Date Data Source [id number] 09/21/2019 10:31:00 PM EDT [facility] Name Value Range Interpretation Description Data Sup porting Code Source(s) Document(s ) Ketones NEGATIVE [facility] [Mass[facility]volume Hospital ] in Urine by Test strip ID Date Data Source [id number] 09/21/2019 10:31:00 PM EDT [facility] Name Value Range Interpretation Description Data Sup porting Code Source(s) Document(s ) Glucose NEGATIVE [facility] [Mass[facility]volume [facility] ] in Urine by Test strip ID Date Data Source [id number] 09/21/2019 10:31:00 PM EDT [facility] Name Value Range Interpretation Code Description Data Kelly rce(s) Supporting Document(s ) Protein TRACE [facility] [Presence] Hospital in Urine by Test strip ID Date Data Source [id number] 09/21/2019 10:31:00 PM EDT [facility] Value Range Interpretation Code Description Data Kelly rce(s) Supporting Document(s ) pH of Urine 5.5 [facility] by Test Hospital strip ID Date Data Source [id number] 09/21/2019 10:31:00 PM EDT [facility] Name Value Range Interpretation Code Description Data Supporting Source(s) Document(s ) Specific 1.025 [facility] gravity of Hospital Urine by Test strip ID Date Data Source [id number] 09/21/2019 10:31:00 PM EDT [facility] Name Value Range Interpretation Description Data Sup porting Code Source(s) Document(s ) Clarity in Urine CLEAR [facility] by Refractometry [facility] automated ID Date Data Source [id number] 09/21/2019 10:31:00 PM EDT [facility] Value Range Interpretation Code Description Data Kelly rce(s) Supporting Document(s ) Color of YELLOW [facility] Urine Hospital ID Date Data Source [id number] 08/21/2019 02:45:00 PM EST [facility] Name Value Range Interpretation Description Data Sup porting Code Source(s) Document(s ) Epithelial 1+ [facility] cells.squamous [facility] [#/area] in Urine sediment by Microscopy high power field ID Date Data Source [id number] 08/21/2019 02:45:00 PM EST [facility] Name Value Range Interpretation Description Data Sup porting Code Source(s) Document(s ) Bacteria 3+ [facility] [#/area] in Hospital Urine sediment by Microscopy high power field ID Date Data Source [id number] 08/21/2019 02:45:00 PM EST [facility] Name Value Range Interpretation Description Data Sup porting Code Source(s) Document(s ) Erythrocytes 5-10 [facility] [#/area] in /[HPF] Hospital Urine sediment by Microscopy high power field ID Date Data Source [id number] 08/21/2019 02:45:00 PM EST [facility] Name Value Range Interpretation Description Data Sup porting Code Source(s) Document(s ) Leukocytes >100 [facility] [#/area] in /[HPF] Hospital Urine sediment by Microscopy high power field ID Date Data Source [id number] 08/21/2019 02:45:00 PM EST [facility] Name Value Range Interpretation Code Description Data Supporting Source(s) Document(s ) Leukocyte 2+ [facility] esterase [facility] [Presence] in Urine by Test strip ID Date Data Source [id number] 08/21/2019 02:45:00 PM [facility] Name Value Range Interpretation Description Data Sup porting Code Source(s) Document(s ) URINE POSITIVE [facility] NITRITES Hospital ID Date Data Source [id number] 08/21/2019 02:45:00 PM EST [facility] Name Value Range Interpretation Description Data Sup porting Code Source(s) Document(s ) Erythrocytes 1+ [facility] [#/volume] in Hospital Urine by Test strip ID Date Data Source [id number] 08/21/2019 02:45:00 PM [facility] Name Value Range Interpretation Code Description Data Kelly rce(s) Supporting Document(s ) Bilirubin. NEGATIVE [facility] total [facility] [Presence] in Urine by Test strip ID Date Data Source [id number] 08/21/2019 02:45:00 PM EST [facility] Name Value Range Interpretation Description Data Sup porting Code Source(s) Document(s ) Urobilinogen 0.2 [facility] [Units/volume] mg/dL Hospital in Urine by Test strip ID Date Data Source [id number] 08/21/2019 02:45:00 PM EST [facility] Name Value Range Interpretation Description Data Sup porting Code Source(s) Document(s ) Ketones NEGATIVE [facility] [Mass[facility]volume Hospital ] in Urine by Test strip ID Date Data Source [id number] 08/21/2019 02:45:00 PM EST [facility] Name Value Range Interpretation Code Description Data Kelly rce(s) Supporting Document(s ) Glucose 3+ [facility] [Mass[facility]volume [facility] ] in Urine by Test strip ID Date Data Source [id number] 08/21/2019 02:45:00 PM [facility] Name Value Range Interpretation Code Description Data Kelly rce(s) Supporting Document(s ) Protein 1+ [facility] [Presence] Hospital in Urine by Test strip ID Date Data Source [id number] 08/21/2019 02:45:00 PM [facility] Name Value Range Interpretation Code Description Data Kelly rce(s) Supporting Document(s ) pH of Urine 5.0 [facility] by Test Hospital strip ID Date Data Source [id number] 08/21/2019 02:45:00 PM [facility] Name Value Range Interpretation Code Description Data Supporting Source(s) Document(s ) Specific 1.037 [facility] gravity of Hospital Urine by Test strip ID Date Data Source [id number] 08/21/2019 02:45:00 PM [facility] Name Value Range Interpretation Description Data Sup porting Code Source(s) Document(s ) Clarity in Urine TURBID [facility] by Refractometry [facility] automated ID Date Data Source [id number] 08/21/2019 02:45:00 PM [facility] Name Value Range Interpretation Code Description Data Kelly rce(s) Supporting Document(s ) Color of YELLOW [facility] Urine Hospital ID Date Data Source [id number] 08/21/2019 01:27:00 PM [facility] TEST PERFORMED BY [employer] ULTRA SENSITIVE [facility] CHEMILUMINESCENCE METHOD. Name Value Range Interpretation Description Data Sup porting Code Source(s) Document(s ) Troponin 0.02 [facility] I.cardiac ng/mL Hospital [Mass/volume ] in Serum or Plasma ID Date Data Source [id number] 08/21/2019 01:27:00 PM EST [facility] Name Value Range Interpretation Code Description Data Supporting Source(s) Document(s ) Creatine 36 U/L [facility] kinase Hospital [Enzymatic activity/volu me] in Serum or Plasma ID Date Data Source [id number] 08/21/2019 01:27:00 PM EST [facility] Name Value Range Interpretation Description Data Sup porting Code Source(s) Document(s ) Aspartate 10 U/L [facility] aminotransferase [place] [Enzymatic Hospital activity/volume] in Serum or Plasma ID Date Data Source [id number] 08/21/2019 01:27:00 PM EST [facility] Name Value Range Interpretation Description Data Sup porting Code Source(s) Document(s ) Alanine 11 U/L [facility] aminotransferase [place] [Enzymatic Hospital activity/volume] in Serum or Plasma ID Date Data Source [id number] 08/21/2019 01:27:00 PM EST [facility] Name Value Range Interpretation Description Data Sup porting Code Source(s) Document(s ) Alkaline 79 U/L [facility] phosphatase Hospital [Enzymatic activity/volume ] in Serum or Plasma ID Date Data Source [id number] 08/21/2019 01:27:00 PM EST [facility] Name Value Range Interpretation Description Data Sup porting Code Source(s) Document(s ) Bilirubin.t 0.7 mg/dL [facility] Hospital [Mass/volum e] in Serum or Plasma ID Date Data Source [id number] 08/21/2019 01:27:00 PM EST [facility] Name Value Range Interpretation Code Description Data Kelly rce(s) Supporting Document(s ) Albumin/Glob 1.6 [facility] ulin [Mass Hospital Ratio] in Serum or Plasma ID Date Data Source [id number] 08/21/2019 01:27:00 PM EST [facility] Name Value Range Interpretation Description Data Sup porting Code Source(s) Document(s ) Albumin 3.9 g/dL [facility] [Mass/volume Hospital ] in Serum or Plasma ID Date Data Source [id number] 08/21/2019 01:27:00 PM EST [facility] Name Value Range Interpretation Description Data Sup porting Code Source(s) Document(s ) Protein 6.4 g/dL [facility] [Mass/volume Hospital ] in Serum or Plasma ID Date Data Source [id number] 08/21/2019 01:27:00 PM EST [facility] Name Value Range Interpretation Description Data Sup porting Code Source(s) Document(s ) Calcium 9.2 mg/dL [facility] [Mass/volume Hospital ] in Serum or Plasma ID Date Data Source [id number] 08/21/2019 01:27:00 PM EST [facility] Name Value Range Interpretation Code Description Data Kelly rce(s) Supporting Document(s ) Urea 9.2 [facility] nitrogen/Cre Hospital atinine [Mass Ratio] in Serum or Plasma ID Date Data Source [id number] 08/21/2019 01:27:00 PM EST [facility] Name Value Range Interpretation Description Data Sup porting Code Source(s) Document(s ) Creatinine 1.2 mg/dL [facility] [Mass/volume] Hospital in Serum or Plasma ID Date Data Source [id number] 08/21/2019 01:27:00 PM EST [facility] Name Value Range Interpretation Description Data Sup porting Code Source(s) Document(s ) Urea 11 mg/dL [facility] nitrogen Hospital [Mass/volume ] in Serum or Plasma ID Date Data Source [id number] 08/21/2019 01:27:00 PM [facility] Name Value Range Interpretation Code Description Data Kelly rce(s) Supporting Document(s ) Anion gap in 13 [facility] Serum or [facility] Plasma ID Date Data Source [id number] 08/21/2019 01:27:00 PM [facility] Name Value Range Interpretation Description Data Sup porting Code Source(s) Document(s ) Carbon 27 mmol/L [facility] dioxide, Hospital total [Moles/volu me] in Serum or Plasma ID Date Data Source [id number] 08/21/2019 01:27:00 PM [facility] Name Value Range Interpretation Description Data Sup porting Code Source(s) Document(s ) Chloride 101 [place] [Moles/volum mmol/L Hospital e] in Serum or Plasma ID Date Data Source [id number] 08/21/2019 01:27:00 PM [facility] Name Value Range Interpretation Description Data Sup porting Code Source(s) Document(s ) Potassium 4.1 [facility] [Moles/volume mmol/L Hospital ] in Serum or Plasma ID Date Data Source [id number] 08/21/2019 01:27:00 PM [facility] Name Value Range Interpretation Description Data Sup porting Code Source(s) Document(s ) Sodium 137 mmol/L [facility] [Moles/volu Hospital me] in Serum or Plasma ID Date Data Source [id number] 08/21/2019 01:27:00 PM [facility] NOTIFICATION AND READ BACK OF CRITICAL R ESULTS TO DR. RODRIGUEZ AT 1427 ON 08/21/19 BY Georgette Boles.PLEASE NOTE CHANGE IN CRITI ARLETTE GLUCOSE VALUES EFFECTIVE 07/22/17.REPORTED CRITICAL VALUES SHOULD BE INTERPRETED WI THIN CLINICAL CONTEXT. Name Value Range Interpretation Description Data Sup porting Code Source(s) Document(s ) Glucose 474 mg/dL [facility] [Mass/volume Hospital ] in Serum or Plasma ID Date Data Source [id number] 08/21/2019 01:27:00 PM [facility] THERAPEUTIC RANGES:UNFRACTIONATED HEPARI N THERAPY: 60-90 SECONDSARGATROBAN THERAPY: 49-99 SECONDS Name Value Range Interpretation Description Data Sup porting Code Source(s) Document(s ) aPTT in 30.9 s [facility] Platelet poor [facility] plasma by Coagulation assay ID Date Data Source [id number] 08/21/2019 01:27:00 PM [facility] THERAPEUTIC RANGE FOR STANDARD ORALANTIC OAGULANT THERAPY: 2.0-3.0THERAPEUTIC RANGE FOR HIGH DOSE ORALANTICOAGULANT THERAPY (MECHANICAL HEARTVALVE REPLACEMENT): 2.5-3.5 Name Value Range Interpretation Description Data Sup porting Code Source(s) Document(s ) INR in Platelet 1.1 [facility] poor plasma by Hospital Coagulation assay ID Date Data Source [id number] 08/21/2019 01:27:00 PM [facility] Name Value Range Interpretation Description Data Sup porting Code Source(s) Document(s ) PT panel - 12.0 s [place] Platelet poor [facility] plasma by Coagulation assay ID Date Data Source [id number] 08/21/2019 01:27:00 PM [facility] Name Value Range Interpretation Code Description Data Supporting Source(s) Document(s ) NUCLEATED RBCS 0.0 % [facility] (AUTO Hospital DIFF%)DIS ID Date Data Source [id number] 08/21/2019 01:27:00 PM [facility] Name Value Range Interpretation Description Data Sup porting Code Source(s) Document(s ) Differential AUTOMATED [facility] cell count [facility] method - Blood ID Date Data Source [id number] 08/21/2019 01:27:00 PM EST [facility] Name Value Range Interpretation Description Data Sup porting Code Source(s) Document(s ) Immature 0.01 [facility] granulocytes 10*3/uL Hospital [#/volume] in Blood by Automated count ID Date Data Source [id number] 08/21/2019 01:27:00 PM EST [facility] Name Value Range Interpretation Description Data Sup porting Code Source(s) Document(s ) Basophils 0.04 [place] [#/volume] in 10*3/uL Hospital Blood by Automated count ID Date Data Source [id number] 08/21/2019 01:27:00 PM [facility] Value Range Interpretation Description Data Sup porting Code Source(s) Document(s ) Eosinophils 0.12 [place] [#/volume] in 10*3/uL Hospital Blood by Automated count ID Date Data Source [id number] 08/21/2019 01:27:00 PM [facility] Value Range Interpretation Description Data Sup porting Code Source(s) Document(s ) Monocytes 0.50 [place] [#/volume] in 10*3/uL Hospital Blood by Automated count ID Date Data Source [id number] 08/21/2019 01:27:00 PM [facility] Name Value Range Interpretation Description Data Sup porting Code Source(s) Document(s ) Lymphocytes 1.95 [place] [#/volume] in 10*3/uL Hospital Blood by Automated count ID Date Data Source [id number] 08/21/2019 01:27:00 PM EST [facility] Name Value Range Interpretation Description Data Sup porting Code Source(s) Document(s ) Neutrophils 4.36 [place] [#/volume] in 10*3/uL Hospital Blood by Automated count ID Date Data Source [id number] 08/21/2019 01:27:00 PM EST [facility] Name Value Range Interpretation Description Data Sup porting Code Source(s) Document(s ) Nucleated 0.0 % [facility] erythrocytes/10 Hospital 0 leukocytes [Ratio] in Blood by Automated count ID Date Data Source [id number] 08/21/2019 01:27:00 PM EST [facility] Name Value Range Interpretation Description Data Sup porting Code Source(s) Document(s ) Immature 0.1 % [facility] granulocytes/10 Hospital 0 leukocytes in Blood by Automated count ID Date Data Source [id number] 08/21/2019 01:27:00 PM [facility] Value Range Interpretation Description Data Sup porting Code Source(s) Document(s ) Basophils/100 0.6 % [facility] leukocytes in Hospital Blood by Automated count ID Date Data Source [id number] 08/21/2019 01:27:00 PM EST [facility] Name Value Range Interpretation Description Data Sup porting Code Source(s) Document(s ) Eosinophils/100 1.7 % [facility] leukocytes in Hospital Blood by Automated count ID Date Data Source [id number] 08/21/2019 01:27:00 PM EST [facility] Value Range Interpretation Description Data Sup porting Code Source(s) Document(s ) Monocytes/100 7.2 % [facility] leukocytes in Hospital Blood by Automated count ID Date Data Source [id number] 08/21/2019 01:27:00 PM [facility] Name Value Range Interpretation Description Data Sup porting Code Source(s) Document(s ) Lymphocytes/10 27.9 % [facility] 0 leukocytes Hospital in Blood by Automated count ID Date Data Source [id number] 08/21/2019 01:27:00 PM EST [facility] Name Value Range Interpretation Description Data Sup porting Code Source(s) Document(s ) Neutrophils/10 62.5 % [facility] 0 leukocytes Hospital in Blood by Automated count ID Date Data Source [id number] 08/21/2019 01:27:00 PM [facility] Value Range Interpretation Description Data Sup porting Code Source(s) Document(s ) Platelet mean 11.4 fL [facility] volume Hospital [Entitic volume] in Blood by Automated count ID Date Data Source [id number] 08/21/2019 01:27:00 PM [facility] Name Value Range Interpretation Description Data Sup porting Code Source(s) Document(s ) Platelets 195 [place] [#/volume] in 10*3/uL Hospital Blood by Automated count ID Date Data Source [id number] 08/21/2019 01:27:00 PM [facility] Name Value Range Interpretation Description Data Sup porting Code Source(s) Document(s ) Erythrocyte 11.8 % [facility] distribution Hospital width [Ratio] by Automated count ID Date Data Source [id number] 08/21/2019 01:27:00 PM [facility] Value Range Interpretation Description Data Sup porting Code Source(s) Document(s ) Erythrocyte mean 33.1 [facility] corpuscular g/dL Hospital hemoglobin concentration [Mass/volume] by Automated count ID Date Data Source [id number] 08/21/2019 01:27:00 PM [facility] Name Value Range Interpretation Description Data Sup porting Code Source(s) Document(s ) Erythrocyte 26.8 pg [facility] mean Hospital corpuscular hemoglobin [Entitic mass] by Automated count ID Date Data Source [id number] 08/21/2019 01:27:00 PM [facility] Value Range Interpretation Description Data Sup porting Code Source(s) Document(s ) Erythrocyte 81.0 fL [facility] mean Hospital corpuscular volume [Entitic volume] by Automated count ID Date Data Source [id number] 08/21/2019 01:27:00 PM EST [facility] Value Range Interpretation Description Data Sup porting Code Source(s) Document(s ) Hematocrit 38.4 % [facility] [Volume Hospital Fraction] of Blood by Automated count ID Date Data Source [id number] 08/21/2019 01:27:00 PM EST [facility] Value Range Interpretation Description Data Sup porting Code Source(s) Document(s ) Hemoglobin 12.7 g/dL [facility] [Mass/volume] Hospital in Blood ID Date Data Source [id number] 08/21/2019 01:27:00 PM EST [facility] Value Range Interpretation Description Data Sup porting Code Source(s) Document(s ) Erythrocytes 4.74 [facility] [#/volume] in 10*6/uL Hospital Blood by Automated count ID Date Data Source [id number] 08/21/2019 01:27:00 PM EST [facility] Value Range Interpretation Description Data Sup porting Code Source(s) Document(s ) Leukocytes 7.0 [facility] [#/volume] in 10*3/uL Hospital Blood by Automated count ID Date Data Source [id number] 08/21/2019 01:15:00 PM EST [facility] Value Range Interpretation Description Data Sup porting Code Source(s) Document(s ) GLUCOSE RN Notified [facility] COMMENT2 Hospital ID Date Data Source [id number] 08/21/2019 01:15:00 PM EST [facility] Value Range Interpretation Description Data Sup porting Code Source(s) Document(s ) GLUCOSE MD Notified [facility] COMMENT Hospital ID Date Data Source [id number] 08/21/2019 01:15:00 PM [facility] Dental Manager:GAL MENALESTER Name Value Range Interpretation Description Data Sup porting Code Source(s) Document(s ) Glucose 453 mg/dL [facility] [Mass/volume] Hospital in Capillary blood by Glucometer ID Date Data Source [id number] 08/21/2019 01:15:00 PM [facility] Name Value Range Interpretation Description Data Sup porting Code Source(s) Document(s ) GLUCOSE RN Notified [address] ID Date Data Source [id number] 08/21/2019 01:15:00 PM [facility] Name Value Range Interpretation Description Data Sup porting Code Source(s) Document(s ) GLUCOSE MD Notified [facility] ID Date Data Source [id number] 08/21/2019 01:15:00 PM [facility] Dental Manager:ROCIO SANTO Name Value Range Interpretation Description Data Sup porting Code Source(s) Document(s ) Glucose 453 mg/dL [facility] [Mass/volume] Hospital in Capillary blood by Glucometer ID Date Data Source [id number] 02/13/2019 01:10:54 PM EDT [facility] [id number] Corporation Name Value Range Interpretation Description Data Sup porting Code Source(s) Document(s ) Antibody NEG <td> [facility] Screen 02/12/2019 [facility] 15:35</td><td> Care Antibody [employer] Screen </td><td> NEG
</td> ABO-Rh Type O POS <td> [facility] 02/12/2019 [facility] 15:35</td><td> Care ABO-Rh Type [employer] </td><td> O POS
</td> Specimen 02/16/20 <td> [facility] expiration date 19 23:59 02/12/2019 [facility] Blood 15:35</td><td> Care Specimen [employer] Expiration Date </td><td> 02/15/2019 23:59
</td> ABO O POS <td> [facility] Verification 02/12/2019 [facility] 16:05</td><td> Care ABO [email or web address] Verification </td><td> O POS
</td> ID Date Data Source [id number] 02/13/2019 01:10:54 PM EDT [facility] [id number] Corporation Name Value Range Interpretation Description Data Sup porting Code Source(s) Document(s ) Chest (PACSIMAGE <td> 02/12/2019 [facility] 15:26</td><td> [facility] Chest [facility] Final Result </td><td><paragra Corporati on Name: [facility], styleCode="Italic TRAUMA s">(PACSIMAGE Sex: F )</paragraph><br/ : >
Final 09/15/1965 Result Location: F

Admitting Name: VENICE, Physician: [facility]
MRN: [id number] Sex: F Requesting
Physician: : 09/15/1965 NILE [...] 02/12/2019 16:49

</td> Cervical (PACSIMAGE <td> 02/12/2019 [facility] W/Out 15:48</td><td> [place] Contrast-CT ) Cervical Spine [facility] Care Final Result W/Out Contrast-CT Corporati on Name: </td><td><paragr TAINA, aph TRAUMA styleCode="Italic s">(PACSIMAGE Sex: F : )</paragraph><br/ 09/15/1965 >
Final Location: F Result Admitting

Physician: Name: VENICE, EMERGENCY TRAUMA SERVICE
MRN: Requesting [id number] Sex: F Physician:
BOSSMAN KIRKLAND : 09/15/1965 Exam: CT Location: F C SPINE C-
02/12/2019 Admitting 16:12 Physician: EXAM: CT C EMERGENCY SERVICE SPINE C-
HISTORY: Requesting Trauma Physician: BOSSMAN TECHNIQUE: Concha KIRKLAND noncontrast

multidetecto Exam: CT C SPINE [...] to
was this dose employed. report
The 3721100}: total study DLP [id number] is approximately 1326 mGy-cm. COMPARISON:

None. The following FINDINGS: accession numbers Overlying are related to jewelry this dose report results in
marked [id number]}: metallic
streak [id number] artifact

precludes COMPARISON: evaluation None. of the [...] Date: 02/12/2019 16:30 Chest/Abd/P (PACSIMAGE <td> 02/12/2019 [facility] With 16:02</td><td> [facility] Cont-CT ) Chest/Abd/Pelvis Health Care Final Result With Cont-CT Corporation Name: </td><td><paragra TAINA, TRAUMA styleCode="Italic s">(PACSIMAGE Sex: F : )</paragraph><br/ 09/15/1965 >
Final Location: F Result Admitting

Physician: Name: VENICE, EMERGENCY TRAUMA SERVICE
MRN: Requesting [id number] Sex: F Physician:
BOSSMAN KIRKLAND : 09/15/1965 [...] this dose is approximately report 1041 mGy-cm. [id number]}:

[id number] The following [id number] accession numbers FINDINGS: are related to AIRWAYS, this dose report LUNGS, and
PLEURA: The 2509000}: central
tracheobronc [id number] hial tree
is patent. [id number] There are

scattered FINDINGS: foci of

pleural-base [...] 02/12/2019 17:55 Ankle 3 (PACSIMAGE <td> 02/12/2019 [facility] Views Rt 16:16</td><td> [facility] ) Ankle 3 Views Rt Health Care Final Result </td><td><paragra Corporati on Name: [facility], styleCode="Italic TRAUMA s">(PACSIMAGE Sex: F )</paragraph><br/ : >
Final 09/15/1965 Result Location: F

Admitting Name: VENICE, Physician: TRAUMA EMERGENCY
MRN: SERVICE [id number] Sex: F Requesting
Physician: : 09/15/1965 MANDI Location: [place] [facility]
Exam: ANKLE Admitting RIGHT 3+ Physician: VIEWS EMERGENCY SERVICE 02/12/2019
22:58 Requesting HISTORY: Physician: [...] Finalizing Radiologist:

<b Malorie Cutler r/> Resident Radiologist: Transcribed Tylor Perez MD Date: Resident 02/12/2019 Radiologist 23:23
Finalized Attending Date: Radiologist: 02/12/2019 Malorie Cutler MD 23:30
Finalizing Radiologist: Malorie Cutler MD
Transcribed Date: 02/12/2019 23:23
Finalized Date: 02/12/2019 23:30

</td> Head (PACSIMAGE <td> 02/12/2019 [facility] Without 15:48</td><td> [facility] Contrast-CT ) Head Without Health Care Final Result Contrast-CT Corporation Name: </td><td><[facility], ph TRAUMA styleCode="Italic s">(PACSIMAGE Sex: F : )</paragraph><br/ 09/15/1965 >
Final Location: F Result Admitting

Physician: Name: VENICE, EMERGENCY TRAUMA SERVICE
MRN: Requesting [id number] Sex: F Physician:
BOSSMAN KIRKLAND : 09/15/1965 [...] this dose
The report total study DLP [id number]}: is approximately [id number] 1326 mGy-cm. (accession

[id number]), The following Up-to-date accession numbers CT equipment are related to using this dose report Automatic
Exposure [id number]}: Control,
dose 1130891 modulation,
and (accession iterative [id number]), reconstructi Up-to-date CT on dose equipment using reduction Automatic software was
employed. Exposure Control, The total dose modulation, study DLP is and iterative approximatel reconstruction y 416
mGy-cm. dose reduction (accession software was [id number]) employed.
The FINDINGS: total study DLP CT scan of is approximately the head: 416 mGy-cm. There is no
evidence of (accession acute [id number]) intracranial

hemorrhage, FINDINGS: mass-effect,

or shift CT [...]

</td> CT LS Spine (PACSIMAGE <td> 02/12/2019 [facility] 2D Recon 16:02</td><td> CT [facility] ) LS Spine 2D Recon Health Care Final Result </td><td><paragr Corporati on Name: aph TRAUMA, styleCode="Italic TAINA s">(PACSIMAGE Sex: F )</paragraph><br/ : >
Final 09/15/1965 Result Location: F

Admitting Name: TRAUMA, Physician: TAINA EMERGENCY
MRN: SERVICE [id number] Sex: F Requesting
Physician: : 09/15/1965 BOSSMAN [...]

</td> CT T Spine (PACSIMAGE <td> 02/12/2019 [facility] 2D Recon 16:02</td><td> CT [facility] ) T Spine 2D Recon [facility] Final Result </td><td><paragra Corporati on Name: TRAUMA, styleCode="Italic VENICE s">(PACSIMAGE Sex: F )</paragraph><br/ : >
Final 09/15/1965 Result Location: F

Admitting Name: TRAUMA, Physician: TAINA EMERGENCY
MRN: SERVICE [id number] Sex: F Requesting
Physician: : 09/15/1965 BOSSMAN KIRKLAND Location: F Exam: CT
T SPINE 2D Admitting RECON Physician: 02/12/2019 EMERGENCY SERVICE 16:31
CLINICAL Requesting INDICATION: Physician: BOSSMAN Trauma KIRKLAND TECHNIQUE:

Axial, Exam: CT T SPINE [...] 02/12/2019 17:31

</td> Maxillofaci (PACSIMAGE <td> 02/[facility] W/Out 15:55</td><td> County Contrast-CT ) Maxillofacial Health Care Final Result W/Out Contrast-CT Corporati on Name: </td><td><paragr TAINA, aph TRAUMA styleCode="Italic s">(PACSIMAGE Sex: F : )</paragraph><br/ 09/15/1965 >
Final Location: F Result Admitting

Physician: Name: VENICE, EMERGENCY TRAUMA SERVICE
MRN: Requesting [id number] Sex: F Physician:
BOSSMAN KIRKLAND : 09/15/1965 [...] this dose
The report total study DLP [id number]}: is approximately [id number] 1326 mGy-cm. (accession

[id number]), The following Up-to-date accession numbers CT equipment are related to using this dose report Automatic
Exposure [id number]}: Control,
dose 7100956 modulation,
and (accession iterative [id number]), reconstructi Up-to-date CT on dose equipment using reduction Automatic software was
employed. Exposure Control, The total dose modulation, study DLP is and iterative approximatel reconstruction y 416
mGy-cm. dose reduction (accession software was [id number]) employed.
The FINDINGS: total study DLP CT scan of is approximately the head: 416 mGy-cm. There is no
evidence of (accession acute [id number]) intracranial

hemorrhage, FINDINGS: mass-effect,

or shift CT [...] Radiologist:
Attending structures. Radiologist: Ashwini Sahu

<ashley LAMARAZ r/>

<br/ Finalizing > Resident Radiologist: Radiologist: Ashwini Sahu
Attending Transcribed Radiologist: Date: Ashwini Sahu MD 02/12/2019
16:25 Finalizing Finalized Radiologist: Date: Ashwini Sahu MD 02/12/2019
16:26 Transcribed Date: 02/12/2019 16:25
Finalized Date: 02/12/2019 16:26

</td> ID Date Data Source [id number]- 02/13/2019 01:10:54 PM EDT [facility] [id number] Corporation Name Value Range Interpretation Description Data Sup porting Code Source(s) Document(s ) Leukocytes 12.0 k/mm3 4.8-10 <td> 02/13/2019 [facility] [#/volume] in .8 01:24</td><td> [facility] Blood by k/mm3 [facility] Automated count </td><td><jorge luis Corporat ion raph styleCode="Bold "> 12.0 H </paragraph>
(4.8-10.8) k/mm3 </td> Erythrocytes 4.18 m/mm3 3.90-5 <td> 02/13/2019 [facility] r [#/volume] in .20 01:24</td><td> County Blood m/mm3 RBC </td><td> Health Care Corporation 4.18
(3.90-5.20) m/mm3 </td> Erythrocyte 85.6 fL 81.0-9 <td> 02/13/2019 [facility] mean 9.0 fL 01:24</td><td> [facility] corpuscular MCV </td><td> Health Care volume [[employer] volume] by 85.6 Automated count
(81.0-99.0) fL </td> Hemoglobin 11.5 g/dL 12.0-1 <td> 02/13/2019 [facility] [Mass/volume] 6.0 01:24</td><td> [facility] in Blood g/dL HGB Health Care </td><td><[employer] raph styleCode="Bold "> 11.5 L </paragraph>
(12.0-16.0) g/dL </td> Hematocrit 35.8 % 37.0-4 <td> 02/13/2019 [facility] [Volume 7.0 % 01:24</td><td> [facility] Fraction] of HCT Health Care Blood by </td><td><[employer] Automated count raph styleCode="Bold "> 35.8 L </paragraph>
(37.0-47.0) % </td> Platelet mean 11.0 fL 9.8-12 <td> 02/13/2019 [facility] r volume [[employer] .8 fL 01:24</td><td> County volume] in MPV </td><td> Health Care Blood by Corporation Automated count 11.0
(9.8-12.8) fL </td> Erythrocyte 27.5 pg 27.0-3 <td> 02/13/2019 [facility] mean 1.5 pg 01:24</td><td> [facility] corpuscular MCH </td><td> Health Care hemoglobin Corporation [[employer] mass] 27.5 by Automated count
(27.0-31.5) pg </td> Erythrocyte 32.1 % 32.0-3 <td> 02/13/2019 [facility] mean 6.0 % 01:24</td><td> [facility] corpuscular MCHC </td><td> Health Care hemoglobin Corporation concentration 32.1 [Mass/volume] in Blood from
Fetus by (32.0-36.0) % Automated count </td> Erythrocyte 12.7 % 11.5-1 <td> 02/13/2019 [facility] distribution 4.5 % 01:24</td><td> [facility] width [[employer] RDW </td><td> Health Car e volume] by Corporation Automated count 12.7
(11.5-14.5) % </td> Platelets 177 k/mm3 160-41 <td> 02/13/2019 [facility] [#/volume] in 0 01:24</td><td> [facility] Blood by k/mm3 Platelet Count Health Care Automated count </td><td> [email or web address] 177
(160-410) k/mm3 </td> Lymphocytes 27.5 % 17.0-5 <td> 02/12/2019 [facility] [#/volume] in 0.0 % 15:35</td><td> [facility] Blood by Lymphocytes [facility] Care Automated count </td><td> [email or web address] 27.5
(17.0-50.0) % </td> Monocytes/Leuko 7.3 % 0.0-11 <td> 02/12/2019 [facility] cytes [Pure .0 % 15:35</td><td> County number Monocytes. Health Care fraction] in </td><td> Corporation Blood by Automated count 7.3
(0.0-11.0) % </td> Basophils+Eosin 2.5 % 0.0-5. <td> 02/12/2019 [facility] ophils+Monocyte 0 % 15:35</td><td> County s [#/volume] in Eosinophils Health Care Blood by </td><td> [email or web address] Automated count 2.5
(0.0-5.0) % </td> Basophils 0.5 % 0.0-2. <td> 02/12/2019 [facility] [#/volume] in 0 % 15:35</td><td> [facility] Blood by Basophils [facility] Automated count </td><td> [email or web address] 0.5
(0.0-2.0) % </td> Neutrophils [#] 61.8 % 40.0-7 <td> 02/12/2019 [facility] in Body fluid 6.0 % 15:35</td><td> [facility] by Manual count Neutrophils [facility] Care </td><td> [email or web address] 61.8
(40.0-76.0) % </td> Sodium 140 mEq/L 135-14 <td> 02/13/2019 [facility] [Moles/volume] 5 01:24</td><td> County in Serum or mEq/L Sodium-Serum Health Care Plasma </td><td> [email or web address] 140
(135-145) mEq/L </td> Glucose 248 mg/dL 70-105 <td> 02/13/2019 [facility] [Mass/volume] mg/dL 01:24</td><td> [facility] in Blood Glucose-Serum [facility] </td><td><jorge luis [email or web address] raph styleCode="Bold "> 248 H </paragraph>
(70-105) mg/dL </td> Immature 0.4 % 0.0-0. <td> 02/12/2019 [facility] granulocytes/10 5 % 15:35</td><td> [facility] 0 leukocytes in IG% </td><td> [facility] Blood by [email or web address] Automated count 0.4
(0.0-0.5) %
The IG fraction represents metamyelocytes, myelocytes and/or
promyelocytes and is only reported as part of the automated
differential when found at a percentage of less than 6.
If higher than 6%, a manual differential will be performed.

(0.0-0.5) % </td> Urea nitrogen 16 mg/dL 6-22 <td> 02/13/2019 [facility] r [Mass/volume] mg/dL 01:24</td><td> County in Blood BUN </td><td> Health Care [email or web address] 16
(6-22) mg/dL </td> Chloride 107 mEq/L 98-107 <td> 02/13/2019 [facility] [Moles/volume] mEq/L 01:24</td><td> County in Serum or Chloride Health Care Plasma </td><td> [email or web address] 107
(98-107) mEq/L </td> Potassium 3.7 mEq/L 3.5-5. <td> 02/13/2019 [facility] [Moles/volume] 1 01:24</td><td> County in Serum or mEq/L Potassium-Serum Health Care Plasma </td><td> [email or web address] 3.7
(3.5-5.1) mEq/L </td> Carbon dioxide, 23 mEq/L 22-30 <td> 02/13/2019 [facility] total mEq/L 01:24</td><td> [facility] [Moles/volume] CO2 </td><td> Health Car e in Serum or Corporation Plasma 23
(22-30) mEq/L </td> Alanine 17 U/L 6-55 <td> 02/12/2019 [facility] aminotransferas U/L 15:35</td><td> County e [Enzymatic ALT (SGPT) Health Care activity/volume </td><td> [email or web address] ] in Serum or Plasma 17
(6-55) U/L </td> Creatinine 1.07 mg/dL 0.57-1 <td> 02/13/2019 [facility] [Moles/volume] .11 01:24</td><td> County in Serum or mg/dL Creatinine. Health Care Plasma </td><td> [email or web address] 1.07
(0.57-1.11) mg/dL </td> Aspartate 17 U/L 4-35 <td> 02/12/2019 [facility] aminotransferas U/L 15:35</td><td> County e [Enzymatic AST (SGOT) Health Care activity/volume </td><td> [email or web address] ] in Serum or Plasma 17
(4-35) U/L </td> Bilirubin.total 0.3 mg/dL 0.2-1. <td> 02/12/2019 [facility] [Mass/volume] 3 15:35</td><td> County in Blood mg/dL Bilirubin - [facility] [employer] </td><td> 0.3
(0.2-1.3) mg/dL </td> Albumin 4.1 g/dL 3.4-4. <td> 02/12/2019 [facility] [Mass/volume] 8 g/dL 15:35</td><td> County in Serum or Albumin Health Care Plasma </td><td> [email or web address] 4.1
(3.4-4.8) g/dL </td> Proteins - 7.6 g/dL 6.4-8. <td> 02/12/2019 [facility] Total 3 g/dL 15:35</td><td> County Proteins - [employer] </td><td> 7.6
(6.4-8.3) g/dL </td> Anion gap in 10 mEq/L 7-13 <td> 02/13/2019 [facility] Serum or Plasma mEq/L 01:24</td><td> [facility] Anion Gap Health [facility] </td><td> [email or web address] 10
(7-13) mEq/L </td> Calcium 9.7 mg/dL 8.6-10 <td> 02/13/2019 [facility] [Mass/volume] .2 01:24</td><td> [facility] in Blood mg/dL Calcium [facility] Care </td><td> [email or web address] 9.7
(8.6-10.2) mg/dL </td> Globulin 3.5 gm/dL 2.9-4. <td> 02/12/2019 [facility] [Mass/volume] 0 15:35</td><td> County in Serum gm/dL Globulin Health Care </td><td> [facility] 3.5
(2.9-4.0) gm/dL </td> Hemolysis index No <td> 02/13/2019 [facility] of Serum or Hemolysis 01:24</td><td> [facility] Plasma Hemolysis Index [facility] </td><td> [facility] No Hemolysis
</td> Lipemic index No Lipemia <td> 02/13/2019 [facility] of Serum or 01:24</td><td> [facility] Plasma Lipemia Index Health Care </td><td> [facility] No Lipemia
</td> Prothrombin 10.8 secs 9.8-12 <td> 02/13/2019 [facility] time (PT) .0 06:36</td><td> [facility] secs Prothrombin [facility] Care Time. [facility] </td><td> 10.8
(9.8-12.0) secs
Result confirmed. Test repeated.

(9.8-12.0) secs </td> aPTT panel - 29.5 secs 25.0-3 <td> 02/13/2019 [facility] Platelet poor 2.0 06:36</td><td> [facility] plasma secs Partial [facility] Thromboplastin [facility] Time </td><td> 29.5
(25.0-32.0) secs </td> Icteric index Not <td> 02/13/2019 [facility] r of Serum or Icteric 01:24</td><td> [facility] Plasma Icteric Index Health Care </td><td> [facility] Not Icteric
</td> Phosphate 2.4 mg/dL 2.3-4. <td> 02/13/2019 [facility] [Mass/volume] 7 01:24</td><td> [facility] in Serum or mg/dL Inorganic [facility] Care Plasma Phosphorus [facility] </td><td> 2.4
(2.3-4.7) mg/dL </td> Magnesium 1.8 mg/dL 1.6-2. <td> 02/13/2019 [facility] [Mass/volume] 6 01:24</td><td> County in Serum or mg/dL Magnesium Level Health Care Plasma </td><td> [facility] 1.8
(1.6-2.6) mg/dL </td> Amylase 56 U/L 22-100 <td> 02/12/2019 [facility] [Enzymatic U/L 15:35</td><td> County activity/volume Amylase Level [facility] ] in Serum or </td><td> [facility] Plasma 56
(22-100) U/L </td> Glucose 328 mg/dL 70-105 <td> 02/13/2019 [facility] [Mass/volume] mg/dL 11:23</td><td> [facility] in Capillary Glucose - [facility] blood by Finger Stick [facility] Glucometer </td><td><jorge luis raph styleCode="Bold "> 328 H </paragraph>
(70-105) mg/dL </td> Procedure Social History Code Duration Value Status Description Data Source(s ) Smoking 09/20/2019 Tobacco smoking completed Tobacco smoking [facility] 11:47:00 PM EDT consumption consumption Hospita l unknown (finding) unknown (finding) Smoking 08/21/2019 Never smoked completed Never smoked [facility] 12:41:00 PM EST tobacco (finding) tobacco (find ing) Hospital Smoking 08/21/2019 Never smoked completed Never smoked [facility] 12:[facility]:00 PM EST tobacco (finding) tobacco (find ing) Hospital Smoking Never smoker completed Never smoker [facility] Corporati on Vital Signs ID Date Data Source UNK Name Value Range Interpretation Code Description Data Source(s) Diastolic blood 58 mm[Hg] 58 mm[Hg] [facility] Systolic blood 108 mm[Hg] 108 mm[Hg] [facility] pressure [facility] Respiratory rate 20 /min 20 /min [facility] Heart rate 75 /min 75 /min [facility] Body temperature 36.16997 36.74875 [facility] Body temperature 97.9 [degF] 97.9 [degF] [facility] Body mass index 23.0 kg/m2 23.0 kg/m2 [facility] (BMI) [Ratio] Hospital Body weight 130.27 130.27 [lb_av] [facility] [lb_av] Hospital Diastolic blood 81 mm[Hg] 81 mm[Hg] [facility] pressure Hospital Systolic blood 184 mm[Hg] 184 mm[facility]Hg[facility] Respiratory rate 18 /min 18 /min [facility] Heart rate 80 /min 80 /min [facility] Body temperature 36.89805 36.80764 [facility] Body temperature 97.9 [degF] 97.9 [degF] [facility] Body mass index 24.0 kg/m2 24.0 kg/m2 [facility] (BMI) [Ratio] Hospital Body weight 140.30 140.30 [lb_av] [facility] [lb_av] [facility] Body mass index 24.0 kg/m2 24.0 kg/m2 [facility] (BMI) [Ratio] Hospital Body weight 140.30 140.30 [lb_av] [facility] ins [lb_av] Hospital Diastolic blood 81 mm[Hg] 81 mm[Hg] [facility] pressure Hospital Systolic blood 190 mm[Hg] 190 mm[Hg] [facility] ns pressure Hospital Respiratory rate 18 /min 18 /min [facility] Heart rate 78 /min 78 /min [facility] Body temperature 37.86330 37.03289 [facility] Body temperature 98.6 [degF] 98.6 [degF] [facility] Diastolic blood 60 {} Normal (applies to 60 {} [place] pressure non-numeric results) [facility] Corpor[facility] on Systolic blood 145 {} Normal (applies to 145 {} [place] pressure non-numeric results) [facility] Corporati on First Respiration 16.0000 {} Normal (applies to 16.0000 {} [facility] rate Set non-numeric results) [facility] Corporati on Heart rate 72.0000 {} Normal (applies to 72.0000 {} [place] non-numeric results) [facility] Corporati on Body temperature 97.9000 {} Normal (applies to 97.9000 {} [facility] non-numeric results) [facility] Corporati on wt - obtain Normal (applies to {} [place] non-numeric results) [facility] Corporati on weight - kg 68.7000 {} Normal (applies to 68.7000 {} [place] non-numeric results) [facility] Corporati on
--- NOTE | 2020-04-04 16:20 | PN ---
Teaching Attending Note Name of Resident: Deneen Hunter ATTENDING PHYSICIAN STATEMENT I saw and evaluated the patient. I reviewed the resident's note and discussed the case with the resident. I agree with the resident's findings and plan as documented. SUBJECTIVE: Patient seen and examined at bedside, admitted for AMS/delirium 2/2 UTI, IV abx started, VSS. OBJECTIVE: GA agitated, AAox1, yelling HEENT NC/AT, dry MM, cachectic Chest CTAB CVS S1, S2+, RRR Abd Soft, NT, ND, BS+ Ext no LE edema no CVA tenderness Vital Signs (72 hours) 04/04/20 04/04/20 11:09 12:00 Temperature 98.3 F Pulse Rate 83 Pulse Rate [ 79 Left Radial] Respiratory 16 16 Rate Blood Pressure 145/90 Blood Pressure 149/57 L [Right Arm] O2 Sat by Pulse 100 98 Oximetry (%) Laboratory Results - last 24 hr 04/04/20 04/04/20 04/04/20 11:35 11:35 11:35 WBC 10.5 H RBC 4.47 Hgb 11.9 Hct 36.3 MCV 81.3 MCH 26.7 MCHC 32.9 RDW 13.4 Plt Count 233 MPV 9.8 Absolute Neuts (auto) 6.1 Neutrophils % 58.2 D Lymphocytes % 31.8 D Monocytes % 6.4 Eosinophils % 2.9 Basophils % 0.7 Nucleated RBC % 0 PT with INR 13.30 H INR 1.13 H PTT (Actin FS) 33.7 VBG pH POC VBG pCO2 POC VBG pO2 VBG HCO3 VBG O2 Sat (Armando) VBG Base Excess Sodium Potassium Chloride Carbon Dioxide Anion Gap BUN Creatinine Est GFR (CKD-EPI)AfAm Est GFR (CKD-EPI)NonAf POC Glucometer Random Glucose Lactic Acid Calcium Phosphorus Magnesium Total Bilirubin AST ALT Alkaline Phosphatase Ammonia Creatine Kinase Troponin I Total Protein Albumin TSH Urine Color Urine Appearance Urine pH Ur Specific [place] Urine Protein Urine Glucose (UA) Urine Ketones Urine Blood Urine Nitrite Urine Bilirubin Urine Urobilinogen Ur Leukocyte Esterase Urine WBC (Auto) Urine RBC (Auto) Urine Casts (Auto) U Pathogenic Cast Auto U Epithel Cells (Auto) Urine Bacteria (Auto) Salicylates < 1.7 L Acetaminophen < 2.0 Alcohol, Quantitative Blood Type Antibody Screen 04/04/20 04/04/20 04/04/20 11:35 11:35 11:35 WBC RBC Hgb Hct MCV MCH MCHC RDW Plt Count MPV Absolute Neuts (auto) Neutrophils % Lymphocytes % Monocytes % Eosinophils % Basophils % Nucleated RBC % PT with INR INR PTT (Actin FS) VBG pH 7.406 POC VBG pCO2 38.4 POC VBG pO2 24.1 L VBG HCO3 23.6 VBG O2 Sat (Armando) 43.6 L VBG Base Excess -0.9 Sodium 142 Potassium 4.1 Chloride 107 Carbon Dioxide 26 Anion Gap 8 BUN 22.6 H Creatinine 0.9 Est GFR (CKD-EPI)AfAm 66.63 Est GFR (CKD-EPI)NonAf 57.49 POC Glucometer Random Glucose 229 H Lactic Acid Calcium 9.4 Phosphorus 3.4 Magnesium 1.8 Total Bilirubin 0.5 AST 9 L ALT 16 Alkaline Phosphatase 81 Ammonia Creatine Kinase 31 Troponin I 0.11 H Total Protein 7.2 Albumin 3.4 TSH 1.23 Urine Color Urine Appearance Urine pH Ur Specific [place] Urine Protein Urine Glucose (UA) Urine Ketones Urine Blood Urine Nitrite Urine Bilirubin Urine Urobilinogen Ur Leukocyte Esterase Urine WBC (Auto) Urine RBC (Auto) Urine Casts (Auto) U Pathogenic Cast Auto U Epithel Cells (Auto) Urine Bacteria (Auto) Salicylates Acetaminophen Alcohol, Quantitative < 3 Blood Type O POSITIVE Antibody Screen Negative 04/04/20 04/04/20 04/04/20 11:35 11:35 11:49 WBC RBC Hgb Hct MCV MCH MCHC RDW Plt Count MPV Absolute Neuts (auto) Neutrophils % Lymphocytes % Monocytes % Eosinophils % Basophils % Nucleated RBC % PT with INR INR PTT (Actin FS) VBG pH POC VBG pCO2 POC VBG pO2 VBG HCO3 VBG O2 Sat (Armando) VBG Base Excess Sodium Potassium Chloride Carbon Dioxide Anion Gap BUN Creatinine Est GFR (CKD-EPI)AfAm Est GFR (CKD-EPI)NonAf POC Glucometer Random Glucose Lactic Acid 3.5 H* Calcium Phosphorus Magnesium Total Bilirubin AST ALT Alkaline Phosphatase Ammonia 19.30 Creatine Kinase Troponin I Total Protein Albumin TSH Urine Color Yellow Urine Appearance Turbid Urine pH 5.0 D Ur Specific [place] 1.012 Urine Protein Negative Urine Glucose (UA) Negative Urine Ketones Negative Urine Blood 1+ H Urine Nitrite Positive H Urine Bilirubin Negative Urine Urobilinogen 0.2 Ur Leukocyte Esterase 3+ H Urine WBC (Auto) 5812 Urine RBC (Auto) 63 Urine Casts (Auto) 3 U Pathogenic Cast Auto Non seen U Epithel Cells (Auto) 12 Urine Bacteria (Auto) >9,000 Salicylates Acetaminophen Alcohol, Quantitative Blood Type Antibody Screen 04/04/20 04/04/20 04/04/20 12:01 14:35 14:35 WBC RBC Hgb Hct MCV MCH MCHC RDW Plt Count MPV Absolute Neuts (auto) Neutrophils % Lymphocytes % Monocytes % Eosinophils % Basophils % Nucleated RBC % PT with INR INR PTT (Actin FS) VBG pH POC VBG pCO2 POC VBG pO2 VBG HCO3 VBG O2 Sat (Armando) VBG Base Excess Sodium Potassium Chloride Carbon Dioxide Anion Gap BUN Creatinine Est GFR (CKD-EPI)AfAm Est GFR (CKD-EPI)NonAf POC Glucometer 239 Random Glucose Lactic Acid 1.3 Calcium Phosphorus Magnesium Total Bilirubin AST ALT Alkaline Phosphatase Ammonia Creatine Kinase Troponin I 0.08 H Total Protein Albumin TSH Urine Color Urine Appearance Urine pH Ur Specific [place] Urine Protein Urine Glucose (UA) Urine Ketones Urine Blood Urine Nitrite Urine Bilirubin Urine Urobilinogen Ur Leukocyte Esterase Urine WBC (Auto) Urine RBC (Auto) Urine Casts (Auto) U Pathogenic Cast Auto U Epithel Cells (Auto) Urine Bacteria (Auto) Salicylates Acetaminophen Alcohol, Quantitative Blood Type Antibody Screen 04/04/20 04/04/20 14:46 16:47 WBC RBC Hgb Hct MCV MCH MCHC RDW Plt Count MPV Absolute Neuts (auto) Neutrophils % Lymphocytes % Monocytes % Eosinophils % Basophils % Nucleated RBC % PT with INR INR PTT (Actin FS) VBG pH POC VBG pCO2 POC VBG pO2 VBG HCO3 VBG O2 Sat (Armando) VBG Base Excess Sodium Potassium Chloride Carbon Dioxide Anion Gap BUN Creatinine Est GFR (CKD-EPI)AfAm Est GFR (CKD-EPI)NonAf POC Glucometer 216 150 Random Glucose Lactic Acid Calcium Phosphorus Magnesium Total Bilirubin AST ALT Alkaline Phosphatase Ammonia Creatine Kinase Troponin I Total Protein Albumin TSH Urine Color Urine Appearance Urine pH Ur Specific [place] Urine Protein Urine Glucose (UA) Urine Ketones Urine Blood Urine Nitrite Urine Bilirubin Urine Urobilinogen Ur Leukocyte Esterase Urine WBC (Auto) Urine RBC (Auto) Urine Casts (Auto) U Pathogenic Cast Auto U Epithel Cells (Auto) Urine Bacteria (Auto) Salicylates Acetaminophen Alcohol, Quantitative Blood Type Antibody Screen Home Medications Medication Instructions Recorded Aspirin Coated [Ecotrin -] 81 mg PO DAILY #30 tablet.ec 09/29/18 Losartan Potassium 25 mg PO DAILY 11/10/19 Metformin HCl [Glucophage] 500 mg PO DAILY 11/10/19 Ascorbate Calcium [Vitamin C] 500 mg PO BID #28 tablet 11/12/19 Zinc Sulfate 220 mg PO BID #28 tablet 11/12/19 Acetaminophen [Tylenol] 325 mg PO Q6H PRN 02/23/20 Atorvastatin Ca [Lipitor] 80 mg PO HS 04/04/20 Lorazepam [Ativan] 0.5 mg PO BID PRN 04/04/20 traZODone HCL [Trazodone HCl] 50 mg PO HS 04/04/20 Current Medications Generic Name Dose Route Start Last Admin Trade Name Freq PRN Reason Stop Dose Admin Acetaminophen 650 mg 04/04/20 14:12 Tylenol - PO Q4H PRN PAIN LEVEL 6-10 Ascorbic Acid 500 mg 04/04/20 22:00 Vitamin C - PO BID [facility] Aspirin 81 mg 04/05/20 10:00 Ecotrin - PO DAILY [facility] Atorvastatin Calcium 80 mg 04/04/20 22:00 Lipitor - PO HS EPHRAIM Enoxaparin Sodium 40 mg 04/05/20 10:00 Lovenox - SQ DAILY EPHRAIM Sodium Chloride 1,000 mls @ 83 mls/hr 04/04/20 14:15 04/04/20 14:43 1/2 Normal Saline IV 83 mls/hr ASDIR EPHRAIM Administration Ceftriaxone Sodium 1 gm/ 50 mls @ 100 mls/hr 04/05/20 10:00 Dextrose IVPB DAILY [facility] Protocol Insulin Aspart 1 vial 04/04/20 16:30 04/04/20 16:57 Novolog Vial Sliding Scale - SQ Not Given ACHS [facility] Protocol Losartan Potassium 25 mg 04/05/20 10:00 Cozaar - PO DAILY EPHRAIM Trazodone HCl 50 mg 04/04/20 22:00 Desyrel - PO HS EPHRAIM Zinc Sulfate 220 mg 04/04/20 22:00 Zinc Sulfate PO BID [facility] ASSESSMENT AND PLAN: 89 F UTI Delirium HTN HLD Dementia Depression Anemia Plan: Cont. IV Rocephin Follow cultures Frequent re-direction, Haldol PRN for severe agitation Restart BP meds Follow chem and correct electrolytes DC in AM w/ PO abx if cultures are unremarkable DVT ppx: Heparin SC
[2020-04-04] MEDS: INSULIN SLIDING SCALE (NOVOLOG) 1 VIAL SQ SCH ×2 (16:57→22:57)
[2020-04-04] MEDS ORDERED: LORazepam 2 MG/ML SDV VIAL IVPUSH ONE ×2 (18:15→18:22)
[2020-04-04] MEDS ORDERED: ATORVASTATIN CA 80 MG TABLET (FP) PO SCH (22:00)
[2020-04-04] MEDS ORDERED: ZINC SULFATE 220 MG TABLET PO SCH (22:00)
[2020-04-04] MEDS ORDERED: traZODone HCL 50 MG TABLET (FP) PO SCH (22:00)
[2020-04-04] MEDS: ASCORBIC ACID 500 MG TABLET (FP) PO SCH (22:40)
[2020-04-04] MEDS ORDERED: INSULIN (NOVOLOG) ASPART 100 UNITS/ML 10ML VIAL ONE (22:52)
[2020-04-05] MEDS: SODIUM CHLORIDE 0.45% 1,000 ML IV SCH (03:32)
[2020-04-05] MEDS: INSULIN SLIDING SCALE (NOVOLOG) 1 VIAL SQ SCH (06:00)
[2020-04-05] MEDS ORDERED: ZINC SULFATE 220 MG CAPSULE (FP) PO SCH (07:21)
[2020-04-05 08:29] LABS: BASO % 0.6 % (0-2.0); EOS % 3.2 % (0-4.5); HEMATOCRIT 32.5 % (32.4-45.2); LYMPH % 35.5 % (8-40); MCH 27.6 pg (25.7-33.7); MCHC 33.9 g/dl (32.0-36.0); MEAN CELL VOLUME 81.4 fl (80-96); MEAN PLT VOLUME 10.1 fl (7.5-11.1); MONO % 7.4 % (3.8-10.2); NEUT % 53.3 % (42.8-82.8); PLATELET COUNT 189 K/MM3 (134-434); RDW 13.7 % (11.6-15.6); WHITE BLOOD COUNT 7.9 K/mm3 (4.0-10.0)
[2020-04-05] MEDS ORDERED: LORazepam 2 MG/ML SDV VIAL IVPUSH ONE (08:30)
[2020-04-05 08:54] LABS: BLOOD UREA NITROGEN 18.5 mg/dL (7-18); CALCIUM 9.4 mg/dL (8.5-10.1); MAGNESIUM 1.9 mg/dL (1.8-2.4); PHOSPHOROUS 3.9 mg/dL (2.5-4.9); POTASSIUM 4.2 mmol/L (3.5-5.1)
[2020-04-05 08:58] LABS: CREATININE 0.8 mg/dL (0.55-1.3); TOT PROT 6.4 g/dl (6.4-8.2)
--- NOTE | 2020-04-05 09:06 | DS ---
Physical Exam: SUBJECTIVE: Pt pleasant this AM with noted agitation overnight. Discussed with daughter: pt was being moved to daughter's home which was due to financial reasons. 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 During her workup here, pt was found to have pyuria and has been treated for multiple UTI's within the past 2-3 months. She received IV fluids and a dose of Rocephin 1gm. Patient is being transitioned to Augmentin suspension for another 4 days TWICE daily. In ad dition, daughter noted patient was not taking Benedryl or Claritin which was a depart from her home medications. Discussed with daughter and Dr. Arias to resume Benedryl as needed to help with her agitation. Patient is to resume rest of home medications and 24hr aide care as she required high home support. OBJECTIVE: Vital Signs Period Temp Pulse Resp BP Sys/Powers Pulse Ox Last 24 Hr 97.6 F-98.3 F 72-83 16-18 145-155/57-90 98-100 PHYSICAL EXAM GENERAL: Awake, alert, pleasant, oriented to name and partially place HEENT: NC/AT, ZAIDA, sclera anicteric, MMM LUNGS: CTA bilaterally despite poor inspiratory effort, no wheezes, no crackles, no accessory muscle use. HEART: RRR, S1, S2 with 3/6 systolic murmur in RUSB without radiation. S1 and S2 present ABDOMEN: Soft, NT/Nd, normoactive bowel sounds, no guarding EXTREMITIES: 2+ pulses, warm, no edema. PSYCH: Normal mood, normal affect. Pleasant, not agitated LABS Laboratory Results - last 24 hr 04/04/20 04/04/20 04/04/20 11:35 11:35 11:35 WBC 10.5 H RBC 4.47 Hgb 11.9 Hct 36.3 MCV 81.3 MCH 26.7 MCHC 32.9 RDW 13.4 Plt Count 233 MPV 9.8 Absolute Neuts (auto) 6.1 Neutrophils % 58.2 D Lymphocytes % 31.8 D Monocytes % 6.4 Eosinophils % 2.9 Basophils % 0.7 Nucleated RBC % 0 PT with INR 13.30 H INR 1.13 H PTT (Actin FS) 33.7 VBG pH POC VBG pCO2 POC VBG pO2 VBG HCO3 VBG O2 Sat (Armando) VBG Base Excess Sodium Potassium Chloride Carbon Dioxide Anion Gap BUN Creatinine Est GFR (CKD-EPI)AfAm Est GFR (CKD-EPI)NonAf POC Glucometer Random Glucose Lactic Acid Calcium Phosphorus Magnesium Total Bilirubin AST ALT Alkaline Phosphatase Ammonia Creatine Kinase Troponin I Total Protein Albumin TSH Urine Color Urine Appearance Urine pH Ur Specific [place] Urine Protein Urine Glucose (UA) Urine Ketones Urine Blood Urine Nitrite Urine Bilirubin Urine Urobilinogen Ur Leukocyte Esterase Urine WBC (Auto) Urine RBC (Auto) Urine Casts (Auto) U Pathogenic Cast Auto U Epithel Cells (Auto) Urine Bacteria (Auto) Salicylates < 1.7 L Acetaminophen < 2.0 Alcohol, Quantitative Blood Type Antibody Screen 04/04/20 04/04/20 04/04/20 11:35 11:35 11:35 WBC RBC Hgb Hct MCV MCH MCHC RDW Plt Count MPV Absolute Neuts (auto) Neutrophils % Lymphocytes % Monocytes % Eosinophils % Basophils % Nucleated RBC % PT with INR INR PTT (Actin FS) VBG pH 7.406 POC VBG pCO2 38.4 POC VBG pO2 24.1 L VBG HCO3 23.6 VBG O2 Sat (Armando) 43.6 L VBG Base Excess -0.9 Sodium 142 Potassium 4.1 Chloride 107 Carbon Dioxide 26 Anion Gap 8 BUN 22.6 H Creatinine 0.9 Est GFR (CKD-EPI)AfAm 66.63 Est GFR (CKD-EPI)NonAf 57.49 POC Glucometer Random Glucose 229 H Lactic Acid Calcium 9.4 Phosphorus 3.4 Magnesium 1.8 Total Bilirubin 0.5 AST 9 L ALT 16 Alkaline Phosphatase 81 Ammonia Creatine Kinase 31 Troponin I 0.11 H Total Protein 7.2 Albumin 3.4 TSH 1.23 Urine Color Urine Appearance Urine pH Ur Specific [place] Urine Protein Urine Glucose (UA) Urine Ketones Urine Blood Urine Nitrite Urine Bilirubin Urine Urobilinogen Ur Leukocyte Esterase Urine WBC (Auto) Urine RBC (Auto) Urine Casts (Auto) U Pathogenic Cast Auto U Epithel Cells (Auto) Urine Bacteria (Auto) Salicylates Acetaminophen Alcohol, Quantitative < 3 Blood Type O POSITIVE Antibody Screen Negative 04/04/20 04/04/20 04/04/20 11:35 11:35 11:49 WBC RBC Hgb Hct MCV MCH MCHC RDW Plt Count MPV Absolute Neuts (auto) Neutrophils % Lymphocytes % Monocytes % Eosinophils % Basophils % Nucleated RBC % PT with INR INR PTT (Actin FS) VBG pH POC VBG pCO2 POC VBG pO2 VBG HCO3 VBG O2 Sat (Armando) VBG Base Excess Sodium Potassium Chloride Carbon Dioxide Anion Gap BUN Creatinine Est GFR (CKD-EPI)AfAm Est GFR (CKD-EPI)NonAf POC Glucometer Random Glucose Lactic Acid 3.5 H* Calcium Phosphorus Magnesium Total Bilirubin AST ALT Alkaline Phosphatase Ammonia 19.30 Creatine Kinase Troponin I Total Protein Albumin TSH Urine Color Yellow Urine Appearance Turbid Urine pH 5.0 D Ur Specific [place] 1.012 Urine Protein Negative Urine Glucose (UA) Negative Urine Ketones Negative Urine Blood 1+ H Urine Nitrite Positive H Urine Bilirubin Negative Urine Urobilinogen 0.2 Ur Leukocyte Esterase 3+ H Urine WBC (Auto) 5812 Urine RBC (Auto) 63 Urine Casts (Auto) 3 U Pathogenic Cast Auto Non seen U Epithel Cells (Auto) 12 Urine Bacteria (Auto) >9,000 Salicylates Acetaminophen Alcohol, Quantitative Blood Type Antibody Screen 04/04/20 04/04/20 04/04/20 12:01 14:35 14:35 WBC RBC Hgb Hct MCV MCH MCHC RDW Plt Count MPV Absolute Neuts (auto) Neutrophils % Lymphocytes % Monocytes % Eosinophils % Basophils % Nucleated RBC % PT with INR INR PTT (Actin FS) VBG pH POC VBG pCO2 POC VBG pO2 VBG HCO3 VBG O2 Sat (Armando) VBG Base Excess Sodium Potassium Chloride Carbon Dioxide Anion Gap BUN Creatinine Est GFR (CKD-EPI)AfAm Est GFR (CKD-EPI)NonAf POC Glucometer 239 Random Glucose Lactic Acid 1.3 Calcium Phosphorus Magnesium Total Bilirubin AST ALT Alkaline Phosphatase Ammonia Creatine Kinase Troponin I 0.08 H Total Protein Albumin TSH Urine Color Urine Appearance Urine pH Ur Specific [place] Urine Protein Urine Glucose (UA) Urine Ketones Urine Blood Urine Nitrite Urine Bilirubin Urine Urobilinogen Ur Leukocyte Esterase Urine WBC (Auto) Urine RBC (Auto) Urine Casts (Auto) U Pathogenic Cast Auto U Epithel Cells (Auto) Urine Bacteria (Auto) Salicylates Acetaminophen Alcohol, Quantitative Blood Type Antibody Screen 04/04/20 04/04/20 04/04/20 14:46 16:47 22:46 WBC RBC Hgb Hct MCV MCH MCHC RDW Plt Count MPV Absolute Neuts (auto) Neutrophils % Lymphocytes % Monocytes % Eosinophils % Basophils % Nucleated RBC % PT with INR INR PTT (Actin FS) VBG pH POC VBG pCO2 POC VBG pO2 VBG HCO3 VBG O2 Sat (Armando) VBG Base Excess Sodium Potassium Chloride Carbon Dioxide Anion Gap BUN Creatinine Est GFR (CKD-EPI)AfAm Est GFR (CKD-EPI)NonAf POC Glucometer 216 150 163 Random Glucose Lactic Acid Calcium Phosphorus Magnesium Total Bilirubin AST ALT Alkaline Phosphatase Ammonia Creatine Kinase Troponin I Total Protein Albumin TSH Urine Color Urine Appearance Urine pH Ur Specific [place] Urine Protein Urine Glucose (UA) Urine Ketones Urine Blood Urine Nitrite Urine Bilirubin Urine Urobilinogen Ur Leukocyte Esterase Urine WBC (Auto) Urine RBC (Auto) Urine Casts (Auto) U Pathogenic Cast Auto U Epithel Cells (Auto) Urine Bacteria (Auto) Salicylates Acetaminophen Alcohol, Quantitative Blood Type Antibody Screen 04/05/20 04/05/20 04/05/20 05:43 06:50 06:50 WBC 7.9 RBC 4.00 Hgb 11.0 Hct 32.5 MCV 81.4 MCH 27.6 MCHC 33.9 RDW 13.7 Plt Count 189 MPV 10.1 Absolute Neuts (auto) 4.2 Neutrophils % 53.3 Lymphocytes % 35.5 Monocytes % 7.4 Eosinophils % 3.2 Basophils % 0.6 Nucleated RBC % 0 PT with INR INR PTT (Actin FS) VBG pH POC VBG pCO2 POC VBG pO2 VBG HCO3 VBG O2 Sat (Armando) VBG Base Excess Sodium 142 Potassium 4.2 Chloride 108 H Carbon Dioxide 27 Anion Gap 7 L BUN 18.5 H Creatinine 0.8 Est GFR (CKD-EPI)AfAm 76.83 Est GFR (CKD-EPI)NonAf 66.29 POC Glucometer 102 Random Glucose 131 H Lactic Acid Calcium 9.4 Phosphorus 3.9 Magnesium 1.9 Total Bilirubin 1.0 AST 9 L ALT 14 Alkaline Phosphatase 66 Ammonia Creatine Kinase Troponin I Total Protein 6.4 Albumin 3.0 L TSH Urine Color Urine Appearance Urine pH Ur Specific [place] Urine Protein Urine Glucose (UA) Urine Ketones Urine Blood Urine Nitrite Urine Bilirubin Urine Urobilinogen Ur Leukocyte Esterase Urine WBC (Auto) Urine RBC (Auto) Urine Casts (Auto) U Pathogenic Cast Auto U Epithel Cells (Auto) Urine Bacteria (Auto) Salicylates Acetaminophen Alcohol, Quantitative Blood Type Antibody Screen HOSPITAL COURSE: Date of Admission:04/04/20 Date of Discharge: 09/23/20 Pt pleasant this AM with noted agitation overnight. Discussed with daughter: pt was being moved to daughter's home which was due to financial reasons. 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 During her workup here, pt was found to have pyuria and has been treated for multiple UTI's within the past 2-3 months. She received IV fluids and a dose of Rocephin 1gm. Patient is being transitioned to Augmentin suspension for another 4 days TWICE daily. In addition, daughter noted patient was not taking Benedryl or Claritin which was a depart from her home medications. Discussed with daughter and Dr. Arias to resume Benedryl as needed to help with her agitation. Patient is to resume rest of home medications and 24hr aide care as she required high home support. Minutes to complete discharge: 33 Discharge Summary Problems reviewed: Yes Reason For Visit: UTI,Altered Mental Status Current Active Problems AMS (altered mental status) (Acute) Troponin level elevated (Acute) UTI (urinary tract infection) (Acute) Condition: Stable - Instructions Diet, Activity, Other Instructions: Please continue your regular home medications. In addition, you will be given Augmentin syrup to take for another 4 days TWICE daily This medication can be given with all her other medications. You can resume Benadryl and Claritin at home as well as it will not interact with the new medication. Referrals: Woody Arias MD [Primary Care Provider] - Disposition: HOME - Home Medications Comprehensive Discharge Medication List: Ambulatory Orders Aspirin Coated [Ecotrin -] 81 mg PO DAILY #30 tablet.ec 09/29/18 Losartan Potassium 25 mg PO DAILY 11/10/19 Metformin HCl [Glucophage] 500 mg PO DAILY 11/10/19 Ascorbate Calcium [Vitamin C] 500 mg PO BID #28 tablet 11/12/19 Zinc Sulfate 220 mg PO BID #28 tablet 11/12/19 Acetaminophen [Tylenol] 325 mg PO Q6H PRN 02/23/20 Atorvastatin Ca [Lipitor] 80 mg PO HS 04/04/20 Lorazepam [Ativan] 0.5 mg PO BID PRN 04/04/20 traZODone HCL [Trazodone HCl] 50 mg PO HS 04/04/20 Amox-Tr/K Cl [Augmentin 400 mg/5 ml Oral Suspension -] 5 ml PO BID 5 Days #100 ml 04/05/20 This patient is new to me today: Yes Date on this admission: 04/05/20 Emergency Visit: Yes ED Registration Date: 04/04/20 Care time: The patient presented to the Emergency Department on the above date and was hospitalized for further evaluation of their emergent condition. Critical Care patient: No - Discharge Referral Referred to [facility] No
[2020-04-05] MEDS ORDERED: cefTRIAXone SODIUM 1 GM VIAL ONE (09:41)
[2020-04-05] MEDS ORDERED: DEXTROSE 5%-WATER - 50 ML IVPB ONE (09:41)
[2020-04-05] MEDS ORDERED: CEFTRIAXONE 1 GM in DEXTROSE 5%-WATER - 50 ML IVPB SCH (10:00)
[2020-04-05] MEDS ORDERED: ENOXAPARIN NA (PORCINE) 40 MG/0.4 ML DISP.SYRIN SQ SCH (10:00)
[2020-04-05] MEDS ORDERED: ASPIRIN COATED 81 MG TABLET.EC PO SCH (10:00)
[2020-04-05] MEDS ORDERED: LOSARTAN POTASSIUM 25 MG TABLET PO SCH (10:00)
--- NOTE | 2020-04-05 10:03 | EKG ---
Test Reason : Blood Pressure : / mmHG Vent. Rate : 086 BPM Atrial Rate : 086 BPM P-R Int : 154 ms QRS Dur : 098 ms QT Int : 388 ms P-R-T Axes : 052 -48 020 degrees QTc Int : 464 ms POOR DATA QUALITY, INTERPRETATION MAY BE ADVERSELY AFFECTED NORMAL SINUS RHYTHM POSSIBLE LEFT ATRIAL ENLARGEMENT PULMONARY DISEASE PATTERN INCOMPLETE RIGHT BUNDLE BRANCH BLOCK LEFT ANTERIOR FASCICULAR BLOCK LEFT VENTRICULAR HYPERTROPHY NONSPECIFIC ST AND T WAVE ABNORMALITY ABNORMAL ECG WHEN COMPARED WITH ECG OF 22-FEB-2020 15:35, MINIMAL CRITERIA FOR SEPTAL INFARCT ARE NO LONGER PRESENT Confirmed by Az Barbosa ([id number]) on 04/05/2020 10:03:17 AM Referred By: Confirmed By:Az Barbosa
[2020-04-05] MEDS: ASCORBIC ACID 500 MG TABLET (FP) PO SCH (10:06)
[2020-04-05 16:07] VITALS: BP 144/60; PULSE 77; TEMP 97.9
== END 2020-04-05 10:55 | disposition home or self-care (01) ==
LOC: JER 10:47 → JERBED 13:16 → INTOOBSV 13:16 → UNDOADMOB 13:16 → JERBED 14:12 → J7W 21:11
PROVIDERS: ATTEND Internal Medicine
DX: N39.0 Urinary tract infection, site not specified (principal); R41.82 Altered mental status, unspecified; R79.89 Other specified abnormal findings of blood chemistry; F03.90 Unspecified dementia, unspecified severity, without behavioral disturbance, psychotic disturbance, mood disturbance, and anxiety; G93.41 Metabolic encephalopathy; E11.9 Type 2 diabetes mellitus without complications; I10 Essential (primary) hypertension; R53.83 Other fatigue; S90.921A Unspecified superficial injury of right foot, initial encounter; J98.11 Atelectasis; R91.1 Solitary pulmonary nodule; F32.9 Major depressive disorder, single episode, unspecified; E78.5 Hyperlipidemia, unspecified; Z86.73 Personal history of transient ischemic attack (TIA), and cerebral infarction without residual deficits; Z29.9 Encounter for prophylactic measures, unspecified
CPT/HCPCS: 36415; 70450-TC; 71045-TC-FY; 71250-TC; 80053; 80307; 81003; 82140; 82550; 82803; 82962; 83605; 83735; 84100; 84443; 84484; 85025; 85610; 85730; 86850; 86900; 86901; 87086; 87186; 93005; 93010; 96361; 96365; 96372; 96375; 99285-25; G0378; U0003

== ENCOUNTER 2020-06-21 12:15 | Inpatient (IN) | payer OTHER, BC ==
[2020-06-21 14:06] LABS: BASO % 0.6 % (0-2.0); EOS % 3.6 % (0-4.5); HEMATOCRIT 35.2 % (32.4-45.2); HEMOGLOBIN 11.5 GM/dL (10.7-15.3); LYMPH % 29.6 % (8-40); MCH 26.6 pg (25.7-33.7); MCHC 32.5 g/dl (32.0-36.0); MEAN PLT VOLUME 9.4 fl (7.5-11.1); MONO % 7.8 % (3.8-10.2); NEUT % 58.4 % (42.8-82.8); PLATELET COUNT 197 K/MM3 (134-434); RDW 12.9 % (11.6-15.6); WHITE BLOOD COUNT 9.3 K/mm3 (4.0-10.0)
[2020-06-21 14:23] LABS: EPI CELLS >36 /uL (0-25.1); HYALINE CASTS 1 /uL (0-3.1); URINE APPEARANCE TURBID; URINE BACTERIA >9,000 /uL (0-1359); URINE BILIRUBIN NEGATIVE (NEGATIVE); URINE COLOR YELLOW; URINE GLUCOSE (UA) NEGATIVE (NEGATIVE); URINE KETONE NEGATIVE (NEGATIVE); URINE LEUK ESTERASE 2+ (NEGATIVE); URINE NITRITE POSITIVE (NEGATIVE); URINE PROTEIN TRACE (NEGATIVE); URINE RBC 59 /uL (0-23.9); URINE UROBILINOGEN 0.2 mg/dL (0.2-1.0); URINE WBC 6217 /uL (0-25.8)
[2020-06-21 14:31] LABS: POTASSIUM 4.3 mmol/L (3.5-5.1)
[2020-06-21 14:32] LABS: ALBUMIN 3.4 g/dl (3.4-5.0); BLOOD UREA NITROGEN 18.7 mg/dL (7-18); CALCIUM 9.4 mg/dL (8.5-10.1)
[2020-06-21 14:36] LABS: CREATININE 0.9 mg/dL (0.55-1.3)
[2020-06-21] MEDS ORDERED: IMIPENEM/CILASTATIN SODIUM 1,000 MG in SODIUM CHLORIDE 100 ML IV ONE (14:36)
[2020-06-21 14:38] LABS: BILIRUBIN,TOTAL 0.4 mg/dL (0.2-1); TOT PROT 6.9 g/dl (6.4-8.2)
[2020-06-21] MEDS ORDERED: LACTATED RINGERS SOLUTION 1000 ML INFUS.BAG IV ONE (14:38)
[2020-06-21] MEDS ORDERED: ERTAPENEM SODIUM 1 GM in SODIUM CHLORIDE 50 ML IVPB ONE (14:49)
[2020-06-21] MEDS ORDERED: HALOPERIDOL LACTATE 5 MG/ML IM ONE ×2 (15:10→16:39)
[2020-06-21] MEDS ORDERED: HALOPERIDOL LACTATE 5 MG/ML ONE ×2 (15:13→16:43)
[2020-06-21] MEDS ORDERED: LORazepam 2 MG/ML SDV VIAL ONE ×2 (15:14→16:44)
[2020-06-21] MEDS ORDERED: ERTAPENEM SODIUM 1 GM VIAL ONE (15:22)
[2020-06-21 15:53] LABS: YEAST NONE SEEN (NEGATIVE)
[2020-06-21] MEDS ORDERED: amLODIPine BESYLATE 5 MG TABLET (FP) PO ONE (19:46)
[2020-06-21] MEDS ORDERED: amLODIPine BESYLATE 5 MG TABLET (FP) ONE (21:48)
[2020-06-21] MEDS ORDERED: ATORVASTATIN CA 80 MG TABLET (FP) ONE (21:49)
[2020-06-21] MEDS ORDERED: HEPARIN NA (PORCINE) 5,000 UNITS/ML 1ML VIAL ONE (21:49)
[2020-06-21] MEDS: HEPARIN NA (PORCINE) 5,000 UNITS/ML 1ML VIAL SQ SCH (22:22)
[2020-06-21] MEDS: ATORVASTATIN CA 80 MG TABLET (FP) PO SCH (22:23)
[2020-06-21] MEDS: INSULIN SLIDING SCALE (NOVOLOG) 1 VIAL SQ SCH (22:24)
[2020-06-22] MEDS: traZODone HCL 50 MG TABLET (FP) PO SCH ×2 (01:21→21:15)
[2020-06-22] MEDS: LACTATED RINGERS SOLUTION 1,000 ML IV SCH ×2 (01:54→17:04)
[2020-06-22 03:03] VITALS: BMI 22.2
[2020-06-22] MEDS: INSULIN SLIDING SCALE (NOVOLOG) 1 VIAL SQ SCH ×4 (07:03→21:58)
[2020-06-22 08:15] LABS: BASO % 0.8 % (0-2.0); EOS % 3.9 % (0-4.5); HEMATOCRIT 34.4 % (32.4-45.2); HEMOGLOBIN 11.3 GM/dL (10.7-15.3); LYMPH % 37.5 % (8-40); MCH 26.9 pg (25.7-33.7); MCHC 32.9 g/dl (32.0-36.0); MEAN CELL VOLUME 81.7 fl (80-96); MEAN PLT VOLUME 9.5 fl (7.5-11.1); MONO % 7.9 % (3.8-10.2); NEUT % 49.9 % (42.8-82.8); PLATELET COUNT 184 K/MM3 (134-434); RBC 4.21 M/mm3 (3.60-5.2); WHITE BLOOD COUNT 7.7 K/mm3 (4.0-10.0)
[2020-06-22 08:42] LABS: ALBUMIN 3.3 g/dl (3.4-5.0); CALCIUM 9.6 mg/dL (8.5-10.1)
[2020-06-22 08:44] LABS: BLOOD UREA NITROGEN 13.5 mg/dL (7-18); MAGNESIUM 1.8 mg/dL (1.8-2.4)
[2020-06-22 08:46] LABS: CREATININE 0.9 mg/dL (0.55-1.3)
[2020-06-22 08:47] LABS: BILIRUBIN,TOTAL 0.7 mg/dL (0.2-1); TOT PROT 6.6 g/dl (6.4-8.2)
[2020-06-22] MEDS ORDERED: ERTAPENEM SODIUM 1 GM in SODIUM CHLORIDE 50 ML IVPB SCH (10:00)
[2020-06-22] MEDS ORDERED: CEFTRIAXONE 2 GM-D5W BAG 2 GM/50 ML BAG IVPB SCH (10:00)
[2020-06-22] MEDS: ASPIRIN COATED 81 MG TABLET.EC PO SCH (11:07)
[2020-06-22] MEDS: HEPARIN NA (PORCINE) 5,000 UNITS/ML 1ML VIAL SQ SCH ×2 (11:07→21:15)
[2020-06-22] MEDS: LOSARTAN POTASSIUM 25 MG TABLET PO SCH (11:07)
[2020-06-22] MEDS: NITROFURANTOIN MACROCRYSTAL 50 MG CAPSULE (FP) PO SCH ×3 (12:15→23:15)
[2020-06-22] MEDS: ASCORBIC ACID 500 MG TABLET (FP) PO SCH (21:15)
[2020-06-22] MEDS: ATORVASTATIN CA 80 MG TABLET (FP) PO SCH (21:15)
[2020-06-22] MEDS: ZINC SULFATE 220 MG CAPSULE (FP) PO SCH (21:55)
[2020-06-23] MEDS: NITROFURANTOIN MACROCRYSTAL 50 MG CAPSULE (FP) PO SCH ×3 (06:00→17:50)
[2020-06-23] MEDS: INSULIN SLIDING SCALE (NOVOLOG) 1 VIAL SQ SCH ×3 (06:07→16:36)
[2020-06-23 08:55] LABS: BASO % 0.9 % (0-2.0); EOS % 4.9 % (0-4.5); HEMATOCRIT 32.9 % (32.4-45.2); HEMOGLOBIN 10.8 GM/dL (10.7-15.3); LYMPH % 37.8 % (8-40); MCH 27.4 pg (25.7-33.7); MCHC 32.9 g/dl (32.0-36.0); MEAN CELL VOLUME 83.2 fl (80-96); MONO % 9.2 % (3.8-10.2); NEUT % 47.2 % (42.8-82.8); PLATELET COUNT 172 K/MM3 (134-434); RBC 3.95 M/mm3 (3.60-5.2); RDW 13.1 % (11.6-15.6); WHITE BLOOD COUNT 6.8 K/mm3 (4.0-10.0)
[2020-06-23 09:14] LABS: POTASSIUM 4.2 mmol/L (3.5-5.1)
[2020-06-23 09:20] LABS: CALCIUM 9.1 mg/dL (8.5-10.1)
[2020-06-23 09:21] LABS: ALBUMIN 3.1 g/dl (3.4-5.0); BLOOD UREA NITROGEN 19.5 mg/dL (7-18)
[2020-06-23 09:25] LABS: BILIRUBIN,TOTAL 0.5 mg/dL (0.2-1); TOT PROT 6.1 g/dl (6.4-8.2)
[2020-06-23] MEDS ORDERED: PT OWN MED DRAWER 7, Y5N ONE (10:14)
[2020-06-23] MEDS: LOSARTAN POTASSIUM 25 MG TABLET PO SCH (10:19)
[2020-06-23] MEDS: ZINC SULFATE 220 MG CAPSULE (FP) PO SCH (10:20)
[2020-06-23] MEDS: ASCORBIC ACID 500 MG TABLET (FP) PO SCH (10:20)
[2020-06-23] MEDS: ASPIRIN COATED 81 MG TABLET.EC PO SCH (10:20)
[2020-06-23] MEDS: HEPARIN NA (PORCINE) 5,000 UNITS/ML 1ML VIAL SQ SCH (10:21)
[2020-06-23 15:18] VITALS: BP 166/80; PULSE 105; TEMP 99
[2020-06-23] MEDS: LACTATED RINGERS SOLUTION 1,000 ML IV SCH (17:50)
== END 2020-06-23 20:46 | disposition home or self-care (01) | DRG 689 ==
LOC: JER 12:15 → JERBED 16:04 → J8W 06-22 00:30
PROVIDERS: ATTEND Nurse Practitioner Family
DX: N39.0 Urinary tract infection, site not specified (principal); G92 Toxic encephalopathy; F03.90 Unspecified dementia, unspecified severity, without behavioral disturbance, psychotic disturbance, mood disturbance, and anxiety; I10 Essential (primary) hypertension; Z79.84 Long term (current) use of oral hypoglycemic drugs; E78.5 Hyperlipidemia, unspecified; Z86.73 Personal history of transient ischemic attack (TIA), and cerebral infarction without residual deficits; F32.9 Major depressive disorder, single episode, unspecified; D64.9 Anemia, unspecified; E11.65 Type 2 diabetes mellitus with hyperglycemia
CPT/HCPCS: 36415; 70450-TC; 71045-TC-FY; 80053; 81003; 82962; 83036; 83735; 84100; 84443; 84484; 85025; 87040; 87086; 87186; 93005; 93010; 97116-GP; 97161-GP; 99285-25; C9803; J1644; U0003

== ENCOUNTER 2020-09-11 11:54 | Inpatient (IN) | payer OTHER, BC ==
[2020-09-11 12:09] VITALS: BMI 23.0
[2020-09-11] MEDS ORDERED: SODIUM CHLORIDE 0.9% 500 ML INFUS.BAG IV ONE (12:41)
[2020-09-11] MEDS ORDERED: ACETAMINOPHEN 1000 MG/100 ML VIAL (NON FORMULARY) IVPB ONE (12:41)
[2020-09-11] MEDS ORDERED: POTASSIUM CHLORIDE TABS 20 MEQ TABLET.ER (FP) PO ONE (13:23)
[2020-09-11] MEDS ORDERED: KCL 10 MEQ IVPB 10 MEQ/100 ML INFUS.BAG IVPB SCH (13:30)
[2020-09-11 13:31] LABS: BASO % 0.6 % (0-2.0); EOS % 3.2 % (0-4.5); HEMATOCRIT 34.6 % (32.4-45.2); HEMOGLOBIN 11.8 GM/dL (10.7-15.3); LYMPH % 26.5 % (8-40); MCH 27.4 pg (25.7-33.7); MCHC 34.2 g/dl (32.0-36.0); MEAN CELL VOLUME 80.2 fl (80-96); MONO % 7.5 % (3.8-10.2); NEUT % 62.2 % (42.8-82.8); PLATELET COUNT 208 K/MM3 (134-434); RBC 4.31 M/mm3 (3.60-5.2); RDW 14.6 % (11.6-15.6)
[2020-09-11] MEDS ORDERED: ACETAMINOPHEN INJECTION 100 ML IVPB ONE (13:32)
[2020-09-11 13:52] LABS: EPI CELLS 2 /uL (0-25.1); HYALINE CASTS 1 /uL (0-3.1); URINE APPEARANCE CLEAR; URINE BACTERIA 971 /uL (0-1359); URINE BILIRUBIN NEGATIVE (NEGATIVE); URINE COLOR YELLOW; URINE GLUCOSE (UA) NEGATIVE (NEGATIVE); URINE KETONE NEGATIVE (NEGATIVE); URINE LEUK ESTERASE 2+ (NEGATIVE); URINE NITRITE NEGATIVE (NEGATIVE); URINE PROTEIN NEGATIVE (NEGATIVE); URINE RBC 5 /uL (0-23.9); URINE UROBILINOGEN 0.2 mg/dL (0.2-1.0); URINE WBC 146 /uL (0-25.8)
[2020-09-11] MEDS ORDERED: ERTAPENEM SODIUM 1 GM in SODIUM CHLORIDE 50 ML IVPB ONE (14:11)
[2020-09-11] MEDS ORDERED: HALOPERIDOL LACTATE 5 MG/ML IM ONE ×2 (14:35→14:38)
[2020-09-11] MEDS ORDERED: HALOPERIDOL LACTATE 5 MG/ML ONE (14:37)
[2020-09-11] MEDS ORDERED: LORazepam 2 MG/ML SDV VIAL IM ONE (14:39)
[2020-09-11] MEDS ORDERED: LORazepam 2 MG/ML SDV VIAL ONE ×2 (14:41→17:13)
[2020-09-11 14:45] LABS: POTASSIUM 4.7 mmol/L (3.5-5.1)
[2020-09-11 14:48] LABS: ALBUMIN 3.6 g/dl (3.4-5.0); BLOOD UREA NITROGEN 19.5 mg/dL (7-18); CALCIUM 9.6 mg/dL (8.5-10.1)
[2020-09-11 14:49] LABS: MAGNESIUM 1.9 mg/dL (1.8-2.4)
[2020-09-11 14:51] LABS: CREATININE 1.1 mg/dL (0.55-1.3)
[2020-09-11 14:53] LABS: BILIRUBIN,TOTAL 0.5 mg/dL (0.2-1); TOT PROT 7.2 g/dl (6.4-8.2)
[2020-09-11] MEDS ORDERED: LORazepam 2 MG/ML SDV VIAL IVPUSH ONE (17:08)
[2020-09-11] MEDS: ENOXAPARIN NA (PORCINE) 40 MG/0.4 ML DISP.SYRIN SQ SCH (18:37)
[2020-09-11] MEDS: LACTATED RINGERS SOLUTION 1,000 ML/1,000 ML INFUS.BAG IV SCH (20:30)
[2020-09-11] MEDS: INSULIN SLIDING SCALE (NOVOLOG) 1 VIAL SQ SCH (22:52)
[2020-09-12] MEDS ORDERED: LORazepam 2 MG/ML SDV VIAL IM ONE (03:06)
[2020-09-12] MEDS ORDERED: LORazepam 2 MG/ML SDV VIAL ONE (03:22)
[2020-09-12] MEDS: INSULIN SLIDING SCALE (NOVOLOG) 1 VIAL SQ SCH ×5 (06:20→22:36)
[2020-09-12 08:46] LABS: BASO % 0.8 % (0-2.0); EOS % 4.6 % (0-4.5); HEMATOCRIT 32.7 % (32.4-45.2); HEMOGLOBIN 11.1 GM/dL (10.7-15.3); LYMPH % 28.1 % (8-40); MCH 27.6 pg (25.7-33.7); MCHC 33.9 g/dl (32.0-36.0); MEAN CELL VOLUME 81.4 fl (80-96); MEAN PLT VOLUME 9.5 fl (7.5-11.1); MONO % 9.6 % (3.8-10.2); NEUT % 56.9 % (42.8-82.8); PLATELET COUNT 177 K/MM3 (134-434); RBC 4.01 M/mm3 (3.60-5.2); RDW 14.5 % (11.6-15.6); WHITE BLOOD COUNT 8.9 K/mm3 (4.0-10.0)
[2020-09-12 09:11] LABS: ALBUMIN 3.3 g/dl (3.4-5.0); CALCIUM 9.6 mg/dL (8.5-10.1)
[2020-09-12 09:12] LABS: MAGNESIUM 1.7 mg/dL (1.8-2.4)
[2020-09-12 09:15] LABS: CREATININE 0.9 mg/dL (0.55-1.3); PHOSPHOROUS 3.6 mg/dL (2.5-4.9)
[2020-09-12 09:16] LABS: BILIRUBIN,TOTAL 0.8 mg/dL (0.2-1); TOT PROT 6.6 g/dl (6.4-8.2)
[2020-09-12] MEDS ORDERED: MAGNESIUM SULF 50% (8.12 MEQ/2 ML-1 GM VIAL) IVPB ONE (09:16)
[2020-09-12] MEDS ORDERED: ERTAPENEM SODIUM 1 GM in SODIUM CHLORIDE 50 ML IVPB SCH (10:00)
[2020-09-12] MEDS ORDERED: ENOXAPARIN NA (PORCINE) 40 MG/0.4 ML DISP.SYRIN SQ SCH (10:00)
[2020-09-12] MEDS ORDERED: HALOPERIDOL LACTATE 5 MG/ML IM ONE (10:01)
[2020-09-12] MEDS: ENOXAPARIN NA (PORCINE) 40 MG/0.4 ML DISP.SYRIN SQ SCH (10:14)
[2020-09-12] MEDS: ASPIRIN 81 MG CHEWABLE TABLETS PO SCH (10:14)
[2020-09-12] MEDS: ERTAPENEM SODIUM 1 GM in SODIUM CHLORIDE 50 ML IVPB SCH (11:01)
[2020-09-12] MEDS ORDERED: PT OWN MED DRAWER 7, Y5N ONE (12:12)
[2020-09-12] MEDS ORDERED: ZINC SULFATE 220 MG CAPSULE (FP) PO SCH (22:00)
[2020-09-12] MEDS ORDERED: ASCORBIC ACID 500 MG TABLET (FP) PO SCH (22:00)
[2020-09-12] MEDS: diphenhydrAMINE HCL 25 MG CAPSULE (FP) PO SCH (22:38)
[2020-09-12] MEDS: ATORVASTATIN CA 40 MG TABLET (FP) PO SCH (22:39)
[2020-09-12] MEDS: LACTATED RINGERS SOLUTION 1,000 ML/1,000 ML INFUS.BAG IV SCH (22:39)
[2020-09-12] MEDS: AMINO ACIDS/PROTEIN HYDROLYS 30 ML LIQUID.PKT PO SCH (22:39)
[2020-09-12] MEDS: traZODone HCL 50 MG TABLET (FP) PO SCH (22:39)
[2020-09-13] MEDS: INSULIN SLIDING SCALE (NOVOLOG) 1 VIAL SQ SCH ×4 (07:00→23:18)
[2020-09-13] MEDS ORDERED: PT OWN MED DRAWER 7, Y5N ONE (09:21)
[2020-09-13] MEDS: ASPIRIN 81 MG CHEWABLE TABLETS PO SCH (09:36)
[2020-09-13] MEDS: LOSARTAN POTASSIUM 25 MG TABLET PO SCH (09:36)
[2020-09-13] MEDS: ERTAPENEM SODIUM 1 GM in SODIUM CHLORIDE 50 ML IVPB SCH (09:37)
[2020-09-13] MEDS: AMINO ACIDS/PROTEIN HYDROLYS 30 ML LIQUID.PKT PO SCH ×2 (09:37→22:47)
[2020-09-13] MEDS: ENOXAPARIN NA (PORCINE) 40 MG/0.4 ML DISP.SYRIN SQ SCH (09:44)
[2020-09-13] MEDS: amLODIPine BESYLATE 10 MG TABLET (FP) PO SCH (09:44)
[2020-09-13] MEDS ORDERED: CHOLECALCIFEROL (VIT D3) 1,000 UNIT (25 MCG) TABLET PO SCH (10:00)
[2020-09-13] MEDS: LACTATED RINGERS SOLUTION 1,000 ML/1,000 ML INFUS.BAG IV SCH (20:00)
[2020-09-13] MEDS: ATORVASTATIN CA 40 MG TABLET (FP) PO SCH (22:47)
[2020-09-13] MEDS: traZODone HCL 50 MG TABLET (FP) PO SCH (22:47)
[2020-09-13] MEDS: diphenhydrAMINE HCL 25 MG CAPSULE (FP) PO SCH (22:47)
[2020-09-14] MEDS: INSULIN SLIDING SCALE (NOVOLOG) 1 VIAL SQ SCH ×4 (06:31→21:54)
[2020-09-14 09:20] LABS: EOS % 5.7 % (0-4.5); HEMATOCRIT 33.8 % (32.4-45.2); HEMOGLOBIN 11.4 GM/dL (10.7-15.3); LYMPH % 29.7 % (8-40); MCH 27.5 pg (25.7-33.7); MCHC 33.7 g/dl (32.0-36.0); MEAN CELL VOLUME 81.7 fl (80-96); MEAN PLT VOLUME 9.2 fl (7.5-11.1); MONO % 8.9 % (3.8-10.2); NEUT % 54.7 % (42.8-82.8); PLATELET COUNT 196 K/MM3 (134-434); RBC 4.14 M/mm3 (3.60-5.2); RDW 14.5 % (11.6-15.6); WHITE BLOOD COUNT 7.7 K/mm3 (4.0-10.0)
[2020-09-14 10:05] LABS: CALCIUM 9.1 mg/dL (8.5-10.1)
[2020-09-14 10:06] LABS: ALBUMIN 3.3 g/dl (3.4-5.0); BLOOD UREA NITROGEN 17.5 mg/dL (7-18); MAGNESIUM 1.8 mg/dL (1.8-2.4)
[2020-09-14 10:09] LABS: CREATININE 0.8 mg/dL (0.55-1.3); PHOSPHOROUS 3.8 mg/dL (2.5-4.9)
[2020-09-14 10:10] LABS: TOT PROT 6.4 g/dl (6.4-8.2)
[2020-09-14 10:12] LABS: BILIRUBIN,TOTAL 0.7 mg/dL (0.2-1)
[2020-09-14] MEDS ORDERED: PT OWN MED DRAWER 7, Y5N ONE (10:57)
[2020-09-14] MEDS: ASPIRIN 81 MG CHEWABLE TABLETS PO SCH (11:01)
[2020-09-14] MEDS: ERTAPENEM SODIUM 1 GM in SODIUM CHLORIDE 50 ML IVPB SCH (11:01)
[2020-09-14] MEDS: LOSARTAN POTASSIUM 25 MG TABLET PO SCH (11:01)
[2020-09-14] MEDS: amLODIPine BESYLATE 10 MG TABLET (FP) PO SCH (11:02)
[2020-09-14] MEDS: AMINO ACIDS/PROTEIN HYDROLYS 30 ML LIQUID.PKT PO SCH ×2 (11:02→21:44)
[2020-09-14] MEDS ORDERED: INSULIN (NOVOLOG) ASPART 100 UNITS/ML 10ML VIAL ONE (11:09)
[2020-09-14] MEDS: ENOXAPARIN NA (PORCINE) 40 MG/0.4 ML DISP.SYRIN SQ SCH (14:42)
[2020-09-14] MEDS: ATORVASTATIN CA 40 MG TABLET (FP) PO SCH (21:44)
[2020-09-14] MEDS: diphenhydrAMINE HCL 25 MG CAPSULE (FP) PO SCH (21:44)
[2020-09-14] MEDS: traZODone HCL 50 MG TABLET (FP) PO SCH (21:44)
[2020-09-15] MEDS: INSULIN SLIDING SCALE (NOVOLOG) 1 VIAL SQ SCH (06:01)
[2020-09-15 06:43] VITALS: BP 100/59; PULSE 90; TEMP 97.7
[2020-09-15] MEDS: ENOXAPARIN NA (PORCINE) 40 MG/0.4 ML DISP.SYRIN SQ SCH (09:03)
[2020-09-15] MEDS: AMINO ACIDS/PROTEIN HYDROLYS 30 ML LIQUID.PKT PO SCH (09:04)
[2020-09-15] MEDS: LOSARTAN POTASSIUM 25 MG TABLET PO SCH (09:04)
[2020-09-15] MEDS: amLODIPine BESYLATE 10 MG TABLET (FP) PO SCH (09:04)
[2020-09-15] MEDS: ASPIRIN 81 MG CHEWABLE TABLETS PO SCH (09:04)
== END 2020-09-15 09:55 | disposition home health service (06) | DRG 689 ==
LOC: JER 11:54 → JERBED 14:12 → J6S 09-12 04:46
PROVIDERS: ADMIT Internal Medicine; ATTEND Student in an Organized Health Care Education/Training Program
DX: N39.0 Urinary tract infection, site not specified (principal); G93.41 Metabolic encephalopathy; B96.1 Klebsiella pneumoniae [K. pneumoniae] as the cause of diseases classified elsewhere; F03.90 Unspecified dementia, unspecified severity, without behavioral disturbance, psychotic disturbance, mood disturbance, and anxiety; I10 Essential (primary) hypertension; E11.9 Type 2 diabetes mellitus without complications; R29.6 Repeated falls; K57.90 Diverticulosis of intestine, part unspecified, without perforation or abscess without bleeding; F41.8 Other specified anxiety disorders; Z86.73 Personal history of transient ischemic attack (TIA), and cerebral infarction without residual deficits; E78.5 Hyperlipidemia, unspecified
CPT/HCPCS: 36415; 71045-TC-FY; 80053; 81003; 82550; 82962; 83605; 83690; 83735; 84100; 84443; 84484; 85025; 85730; 87040; 87086; 93005; 93010; 99285-25; C9803; J0131; U0003

== ENCOUNTER 2020-10-24 20:30 | Inpatient (IN) | payer OTHER, BC ==
[2020-10-24] MEDS ORDERED: HALOPERIDOL LACTATE 5 MG/ML IM ONE (21:25)
[2020-10-24] MEDS ORDERED: HALOPERIDOL LACTATE 5 MG/ML ONE (21:29)
[2020-10-24 22:14] LABS: BASO % 0.7 % (0-2.0); EOS % 2.6 % (0-4.5); HEMATOCRIT 34.4 % (32.4-45.2); HEMOGLOBIN 11.6 GM/dL (10.7-15.3); LYMPH % 20.6 % (8-40); MCH 27.7 pg (25.7-33.7); MCHC 33.7 g/dl (32.0-36.0); MEAN CELL VOLUME 82.4 fl (80-96); MEAN PLT VOLUME 9.1 fl (7.5-11.1); MONO % 9.8 % (3.8-10.2); NEUT % 66.3 % (42.8-82.8); PLATELET COUNT 190 K/MM3 (134-434); RBC 4.18 M/mm3 (3.60-5.2); RDW 14.2 % (11.6-15.6)
[2020-10-24 22:21] LABS: INR 1.12 (0.83-1.09); PROTHROMBIN TIME (PATIENT) 13.5 SEC (9.7-13.0)
[2020-10-24 22:24] LABS: ACTIVATED PTT 30.8 SECONDS (25.2-36.5)
[2020-10-24 22:42] LABS: ALBUMIN 3.4 g/dl (3.4-5.0); CALCIUM 8.9 mg/dL (8.5-10.1)
[2020-10-24 22:43] LABS: BLOOD UREA NITROGEN 21.3 mg/dL (7-18)
[2020-10-24 22:46] LABS: CREATININE 1.1 mg/dL (0.55-1.3)
[2020-10-24 22:47] LABS: BILIRUBIN,TOTAL 0.4 mg/dL (0.2-1); TOT PROT 6.6 g/dl (6.4-8.2)
[2020-10-24 23:47] LABS: EPI CELLS 9 /uL (0-25.1); HYALINE CASTS 4 /uL (0-3.1); URINE APPEARANCE TURBID; URINE BACTERIA >9,000 /uL (0-1359); URINE BILIRUBIN NEGATIVE (NEGATIVE); URINE COLOR YELLOW; URINE GLUCOSE (UA) TRACE (NEGATIVE); URINE KETONE NEGATIVE (NEGATIVE); URINE LEUK ESTERASE 3+ (NEGATIVE); URINE NITRITE POSITIVE (NEGATIVE); URINE PROTEIN 1+ (NEGATIVE); URINE RBC 147 /uL (0-23.9); URINE UROBILINOGEN 0.2 mg/dL (0.2-1.0); URINE WBC 14698 /uL (0-25.8)
[2020-10-25] MEDS ORDERED: ERTAPENEM SODIUM 1 GM in SODIUM CHLORIDE 50 ML IVPB ONE (00:09)
[2020-10-25 00:13] LABS: YEAST NEGATIVE (NEGATIVE)
[2020-10-25] MEDS ORDERED: LACTATED RINGERS SOLUTION 1000 ML INFUS.BAG IV ONE (00:15)
[2020-10-25] MEDS ORDERED: ERTAPENEM SODIUM 1 GM VIAL ONE (00:16)
[2020-10-25] MEDS ORDERED: SODIUM CHLORIDE 0.9% 500 ML INFUS.BAG IV ONE (00:24)
[2020-10-25] MEDS ORDERED: LORazepam 2 MG/ML SDV VIAL IVPUSH ONE ×2 (01:37→01:52)
[2020-10-25] MEDS ORDERED: LORazepam 2 MG/ML SDV VIAL ONE (01:39)
[2020-10-25] MEDS ORDERED: SODIUM CHLORIDE 1,000 ML IV SCH (05:15)
[2020-10-25 07:30] LABS: BASO % 0.6 % (0-2.0); EOS % 2.1 % (0-4.5); HEMATOCRIT 33.6 % (32.4-45.2); HEMOGLOBIN 11.2 GM/dL (10.7-15.3); LYMPH % 19.9 % (8-40); MCH 27.4 pg (25.7-33.7); MCHC 33.2 g/dl (32.0-36.0); MEAN CELL VOLUME 82.4 fl (80-96); MEAN PLT VOLUME 9.6 fl (7.5-11.1); MONO % 10.6 % (3.8-10.2); NEUT % 66.8 % (42.8-82.8); PLATELET COUNT 168 K/MM3 (134-434); RBC 4.08 M/mm3 (3.60-5.2); RDW 13.8 % (11.6-15.6); WHITE BLOOD COUNT 11.7 K/mm3 (4.0-10.0)
[2020-10-25 07:57] LABS: ALBUMIN 3.2 g/dl (3.4-5.0); BLOOD UREA NITROGEN 16.7 mg/dL (7-18); CALCIUM 9.1 mg/dL (8.5-10.1)
[2020-10-25 08:00] LABS: PHOSPHOROUS 3.3 mg/dL (2.5-4.9)
[2020-10-25 08:02] LABS: BILIRUBIN,TOTAL 0.5 mg/dL (0.2-1)
[2020-10-25 08:03] LABS: TOT PROT 6.5 g/dl (6.4-8.2)
[2020-10-25] MEDS ORDERED: ENOXAPARIN NA (PORCINE) 40 MG/0.4 ML DISP.SYRIN SQ ONE (08:04)
[2020-10-25] MEDS: INSULIN SLIDING SCALE (NOVOLOG) 1 VIAL SQ SCH ×4 (08:08→23:08)
[2020-10-25] MEDS: ENOXAPARIN NA (PORCINE) 40 MG/0.4 ML DISP.SYRIN SQ SCH (09:08)
[2020-10-25] MEDS ORDERED: amLODIPine BESYLATE 5 MG TABLET (FP) ONE (10:40)
[2020-10-25] MEDS: amLODIPine BESYLATE 5 MG TABLET (FP) PO SCH (11:02)
[2020-10-25] MEDS ORDERED: HYDROCHLOROTHIAZIDE 25 MG TABLET (FP) ONE (11:06)
[2020-10-25] MEDS ORDERED: HALOPERIDOL LACTATE 5 MG/ML IM ONE (14:15)
[2020-10-25] MEDS ORDERED: HALOPERIDOL LACTATE 5 MG/ML ONE (18:31)
[2020-10-25] MEDS: AMINO ACIDS/PROTEIN HYDROLYS 30 ML LIQUID.PKT PO SCH (20:08)
[2020-10-25] MEDS ORDERED: NUT TX GLUC INTOL LF SOY PO SCH (22:00)
[2020-10-25] MEDS ORDERED: diphenhydrAMINE HCL 25 MG CAPSULE (FP) PO SCH (22:00)
[2020-10-25] MEDS ORDERED: [UNRECOGNIZED DRUG - OTHER] PO SCH (22:00)
[2020-10-25] MEDS ORDERED: FIBER PO SCH (22:00)
[2020-10-25] MEDS ORDERED: traZODone HCL 50 MG TABLET (FP) PO SCH (22:00)
[2020-10-25 22:42] VITALS: BMI 21.6
[2020-10-25] MEDS: ASCORBIC ACID 500 MG TABLET (FP) PO SCH (22:56)
[2020-10-25] MEDS: ATORVASTATIN CA 40 MG TABLET (FP) PO SCH (22:56)
[2020-10-26] MEDS ORDERED: ERTAPENEM SODIUM 0.5 GM in SODIUM CHLORIDE 50 ML IVPB ONE (00:30)
[2020-10-26] MEDS: INSULIN SLIDING SCALE (NOVOLOG) 1 VIAL SQ SCH ×4 (06:36→21:34)
[2020-10-26 09:29] LABS: HEMOGLOBIN 11.5 GM/dL (10.7-15.3); MCH 27.9 pg (25.7-33.7); MCHC 33.9 g/dl (32.0-36.0); MEAN CELL VOLUME 82.3 fl (80-96); MEAN PLT VOLUME 9.5 fl (7.5-11.1); PLATELET COUNT 202 K/MM3 (134-434); RBC 4.13 M/mm3 (3.60-5.2); RDW 13.7 % (11.6-15.6); WHITE BLOOD COUNT 10.4 K/mm3 (4.0-10.0)
[2020-10-26] MEDS: ASCORBIC ACID 500 MG TABLET (FP) PO SCH ×2 (10:03→21:35)
[2020-10-26] MEDS: CHOLECALCIFEROL (VIT D3) 1,000 UNIT (25 MCG) TABLET PO SCH (10:03)
[2020-10-26] MEDS: ENOXAPARIN NA (PORCINE) 40 MG/0.4 ML DISP.SYRIN SQ SCH (10:04)
[2020-10-26] MEDS: ASPIRIN COATED 81 MG TABLET.EC PO SCH (10:04)
[2020-10-26] MEDS: AMINO ACIDS/PROTEIN HYDROLYS 30 ML LIQUID.PKT PO SCH ×2 (10:04→17:04)
[2020-10-26] MEDS: LOSARTAN POTASSIUM 25 MG TABLET PO SCH (10:04)
[2020-10-26] MEDS: amLODIPine BESYLATE 5 MG TABLET (FP) PO SCH (10:04)
[2020-10-26 10:08] LABS: ALBUMIN 3.2 g/dl (3.4-5.0); CALCIUM 9.5 mg/dL (8.5-10.1)
[2020-10-26 10:09] LABS: BLOOD UREA NITROGEN 16.5 mg/dL (7-18)
[2020-10-26 10:11] LABS: CREATININE 0.9 mg/dL (0.55-1.3)
[2020-10-26 10:13] LABS: BILIRUBIN,TOTAL 0.8 mg/dL (0.2-1); TOT PROT 6.6 g/dl (6.4-8.2)
[2020-10-26] MEDS: QUEtiapine FUMARATE 50 MG TABLET PO SCH ×2 (10:53→21:35)
[2020-10-26] MEDS ORDERED: INSULIN (NOVOLOG) ASPART 100 UNITS/ML 10ML VIAL ONE ×2 (11:07→21:28)
[2020-10-26] MEDS: ATORVASTATIN CA 40 MG TABLET (FP) PO SCH (21:35)
[2020-10-27] MEDS: INSULIN SLIDING SCALE (NOVOLOG) 1 VIAL SQ SCH ×2 (06:57→11:20)
[2020-10-27 08:53] LABS: HEMATOCRIT 33.5 % (32.4-45.2); HEMOGLOBIN 11.4 GM/dL (10.7-15.3); MCH 28.2 pg (25.7-33.7); MCHC 34.1 g/dl (32.0-36.0); MEAN CELL VOLUME 82.5 fl (80-96); MEAN PLT VOLUME 9.6 fl (7.5-11.1); PLATELET COUNT 203 K/MM3 (134-434); RBC 4.06 M/mm3 (3.60-5.2); RDW 13.6 % (11.6-15.6); WHITE BLOOD COUNT 8.1 K/mm3 (4.0-10.0)
[2020-10-27] MEDS ORDERED: PT OWN MED DRAWER 7, Y5N ONE (09:02)
[2020-10-27 09:13] LABS: CALCIUM 9.2 mg/dL (8.5-10.1)
[2020-10-27 09:14] LABS: ALBUMIN 3.2 g/dl (3.4-5.0); BLOOD UREA NITROGEN 22.7 mg/dL (7-18)
[2020-10-27 09:17] LABS: CREATININE 1.1 mg/dL (0.55-1.3)
[2020-10-27 09:18] LABS: BILIRUBIN,TOTAL 0.7 mg/dL (0.2-1); TOT PROT 6.4 g/dl (6.4-8.2)
[2020-10-27] MEDS ORDERED: ERTAPENEM SODIUM 1 GM in SODIUM CHLORIDE 50 ML IVPB SCH (10:00)
[2020-10-27] MEDS: ASPIRIN COATED 81 MG TABLET.EC PO SCH (10:39)
[2020-10-27] MEDS: LOSARTAN POTASSIUM 25 MG TABLET PO SCH (10:39)
[2020-10-27] MEDS: QUEtiapine FUMARATE 50 MG TABLET PO SCH (10:39)
[2020-10-27] MEDS: CHOLECALCIFEROL (VIT D3) 1,000 UNIT (25 MCG) TABLET PO SCH (10:39)
[2020-10-27] MEDS: ASCORBIC ACID 500 MG TABLET (FP) PO SCH (10:39)
[2020-10-27] MEDS: amLODIPine BESYLATE 5 MG TABLET (FP) PO SCH (10:39)
[2020-10-27] MEDS: AMINO ACIDS/PROTEIN HYDROLYS 30 ML LIQUID.PKT PO SCH (10:39)
[2020-10-27] MEDS: ENOXAPARIN NA (PORCINE) 40 MG/0.4 ML DISP.SYRIN SQ SCH (10:39)
[2020-10-27 14:10] VITALS: BP 149/71; PULSE 77; TEMP 99.1
== END 2020-10-27 17:32 | disposition home or self-care (01) | DRG 689 ==
LOC: JER 20:30 → JERBED 10-25 00:09 → J6S 10-25 21:57
PROVIDERS: ADMIT Hospitalist; ATTEND Internal Medicine
DX: N39.0 Urinary tract infection, site not specified (principal); G92 Toxic encephalopathy; N17.9 Acute kidney failure, unspecified; Z16.12 Extended spectrum beta lactamase (ESBL) resistance; F03.90 Unspecified dementia, unspecified severity, without behavioral disturbance, psychotic disturbance, mood disturbance, and anxiety; E11.9 Type 2 diabetes mellitus without complications; I10 Essential (primary) hypertension; E78.5 Hyperlipidemia, unspecified; Z86.73 Personal history of transient ischemic attack (TIA), and cerebral infarction without residual deficits; Z79.84 Long term (current) use of oral hypoglycemic drugs
CPT/HCPCS: 36415; 70450-TC; 71045-TC-FY; 80053; 81003; 82962; 83036; 83735; 84100; 84484; 85025; 85027; 85610; 85730; 87086; 87186; 93005; 93010; 99285-25; C9803; U0003; U0005

== ENCOUNTER 2020-11-15 11:52 | Emergency (ER) | payer OTHER, BC ==
[2020-11-15 12:13] VITALS: BMI 27.9
[2020-11-15] MEDS ORDERED: SODIUM CHLORIDE 1,000 ML IV SCH (12:15)
[2020-11-15] MEDS ORDERED: HALOPERIDOL LACTATE 5 MG/ML IV ONE ×2 (12:15→13:30)
[2020-11-15] MEDS ORDERED: HALOPERIDOL LACTATE 5 MG/ML ONE ×2 (12:22→13:16)
[2020-11-15 12:46] LABS: BASO % 0.6 % (0-2.0); EOS % 4.3 % (0-4.5); HEMATOCRIT 34.8 % (32.4-45.2); HEMOGLOBIN 11.6 GM/dL (10.7-15.3); LYMPH % 31.4 % (8-40); MCH 27.7 pg (25.7-33.7); MCHC 33.4 g/dl (32.0-36.0); MEAN CELL VOLUME 83.1 fl (80-96); MEAN PLT VOLUME 9.7 fl (7.5-11.1); MONO % 6.9 % (3.8-10.2); NEUT % 56.8 % (42.8-82.8); PLATELET COUNT 214 K/MM3 (134-434); RBC 4.19 M/mm3 (3.60-5.2); RDW 13.9 % (11.6-15.6); WHITE BLOOD COUNT 8.4 K/mm3 (4.0-10.0)
[2020-11-15 13:15] LABS: CALCIUM 9.3 mg/dL (8.5-10.1)
[2020-11-15 13:16] LABS: ALBUMIN 3.5 g/dl (3.4-5.0); BLOOD UREA NITROGEN 14.6 mg/dL (7-18)
[2020-11-15 13:18] LABS: CREATININE 1.1 mg/dL (0.55-1.3)
[2020-11-15 13:24] LABS: BILIRUBIN,TOTAL 0.3 mg/dL (0.2-1)
[2020-11-15 13:41] LABS: URINE APPEARANCE CLEAR; URINE BILIRUBIN NEGATIVE (NEGATIVE); URINE COLOR YELLOW; URINE GLUCOSE (UA) TRACE (NEGATIVE); URINE KETONE NEGATIVE (NEGATIVE); URINE LEUK ESTERASE NEGATIVE (NEGATIVE); URINE NITRITE NEGATIVE (NEGATIVE); URINE PROTEIN NEGATIVE (NEGATIVE); URINE UROBILINOGEN 0.2 mg/dL (0.2-1.0)
[2020-11-15 15:38] VITALS: BP 163/71; PULSE 72; TEMP 98.3
== END 2020-11-15 16:57 | disposition home or self-care (01) ==
LOC: JER 11:52
PROC: 3E033GC Introduction of Other Therapeutic Substance into Peripheral Vein, Percutaneous Approach (ICD-10-PCS; principal; 2020-11-15)
PROC: 3E033GC Introduction of Other Therapeutic Substance into Peripheral Vein, Percutaneous Approach (ICD-10-PCS; 2020-11-15)
DX: R73.9 Hyperglycemia, unspecified (principal)
CPT/HCPCS: 36415; 71045-TC-FY; 80053; 81003; 82962; 85025; 87086; 93005; 93010; 99285-25; C9803; U0003; U0005

== ENCOUNTER 2020-12-07 12:02 | Inpatient (IN) | payer OTHER, BC ==
[2020-12-07] MEDS ORDERED: HALOPERIDOL LACTATE 5 MG/ML IM ONE ×2 (12:16→19:43)
[2020-12-07] MEDS ORDERED: HALOPERIDOL LACTATE 5 MG/ML ONE ×3 (12:19→15:57)
[2020-12-07 12:55] VITALS: BMI 26.5
[2020-12-07 13:16] LABS: VENOUS BASE EXCESS -2.5 mmol/L (-2-2); VENOUS O2 SATURATION 95.5 % (70-80); VENOUS PCO2 24.6 mmHg (38-52); VENOUS PH 7.51 (7.310-7.410)
[2020-12-07] MEDS ORDERED: LORazepam 2 MG/ML SDV VIAL IVPUSH ONE ×2 (13:18→14:47)
[2020-12-07 13:21] LABS: BASO % 0.9 % (0-2.0); EOS % 3.9 % (0-4.5); HEMATOCRIT 32.6 % (32.4-45.2); LYMPH % 28.7 % (8-40); MCH 27.7 pg (25.7-33.7); MCHC 33.7 g/dl (32.0-36.0); MEAN CELL VOLUME 82.4 fl (80-96); MEAN PLT VOLUME 9.5 fl (7.5-11.1); NEUT % 58.5 % (42.8-82.8); PLATELET COUNT 223 K/MM3 (134-434); RBC 3.96 M/mm3 (3.60-5.2); RDW 13.7 % (11.6-15.6); WHITE BLOOD COUNT 8.7 K/mm3 (4.0-10.0)
[2020-12-07 13:28] LABS: INR 1.03 (0.83-1.09); PROTHROMBIN TIME (PATIENT) 12.5 SEC (9.7-13.0)
[2020-12-07 13:31] LABS: ACTIVATED PTT 31.3 SECONDS (25.2-36.5); CHLORIDE 106 mmol/L (98-107); SODIUM 137 mmol/L (136-145)
[2020-12-07 13:33] LABS: BLOOD UREA NITROGEN 22.2 mg/dL (7-18); CALCIUM 9.1 mg/dL (8.5-10.1)
[2020-12-07 13:34] LABS: ALBUMIN 3.7 g/dl (3.4-5.0); ANION GAP 9 MMOL/L (8-16); CO2 21 mmol/L (21-32); GLUCOSE,RANDOM 270 mg/dL (74-106); MAGNESIUM 2.1 mg/dL (1.8-2.4)
[2020-12-07 13:37] LABS: CREATININE 1.1 mg/dL (0.55-1.3); PHOSPHOROUS 3.8 mg/dL (2.5-4.9); SGOT/AST 35 U/L (15-37); SGPT/ALT 22 U/L (13-61)
[2020-12-07 13:38] LABS: BILIRUBIN,TOTAL 0.4 mg/dL (0.2-1); TOT PROT 7.6 g/dl (6.4-8.2)
[2020-12-07] MEDS ORDERED: LORazepam 2 MG/ML SDV VIAL ONE ×2 (13:39→14:48)
[2020-12-07 13:40] LABS: ALK PHOS 76 U/L (45-117)
[2020-12-07 13:55] LABS: LACTIC ACID 2.5 mmol/L (0.4-2.0)
[2020-12-07] MEDS ORDERED: SODIUM CHLORIDE 0.9% 500 ML INFUS.BAG IV ONE (14:17)
[2020-12-07 15:11] LABS: EPI CELLS 6 /uL (0-25.1); HYALINE CASTS 1 /uL (0-3.1); PH,URINE 5.5 (5.0-8.0); URINE APPEARANCE TURBID; URINE BACTERIA >9,000 /uL (0-1359); URINE BILIRUBIN NEGATIVE (NEGATIVE); URINE COLOR YELLOW; URINE GLUCOSE (UA) 2+ (NEGATIVE); URINE KETONE NEGATIVE (NEGATIVE); URINE LEUK ESTERASE 3+ (NEGATIVE); URINE NITRITE POSITIVE (NEGATIVE); URINE PROTEIN TRACE (NEGATIVE); URINE RBC 89 /uL (0-23.9); URINE UROBILINOGEN 0.2 mg/dL (0.2-1.0); URINE WBC 7202 /uL (0-25.8)
[2020-12-07] MEDS ORDERED: CEFTRIAXONE 1 GM in DEXTROSE 5%-WATER - 100 ML IVPB ONE (15:17)
[2020-12-07] MEDS ORDERED: HALOPERIDOL LACTATE 5 MG/ML IV ONE (15:45)
[2020-12-07] MEDS ORDERED: CEFTRIAXONE 1 GM/50 ML BAG ONE (15:57)
[2020-12-07] MEDS ORDERED: SODIUM CHLORIDE 1,000 ML IV STA (17:11)
[2020-12-07] MEDS ORDERED: ERTAPENEM SODIUM 1 GM in SODIUM CHLORIDE 50 ML IVPB SCH (18:00)
[2020-12-07] MEDS ORDERED: ERTAPENEM SODIUM 1 GM VIAL ONE (18:15)
[2020-12-07] MEDS ORDERED: ERTAPENEM SODIUM 0.5 GM in SODIUM CHLORIDE 50 ML IVPB SCH (18:30)
[2020-12-07 19:24] LABS: BLOOD UREA NITROGEN 18.4 mg/dL (7-18)
[2020-12-07 19:27] LABS: CREATININE 0.9 mg/dL (0.55-1.3)
[2020-12-07] MEDS: MELATONIN 5 MG TABLETS PO SCH (22:09)
[2020-12-07] MEDS: ATORVASTATIN CA 40 MG TABLET (FP) PO SCH (22:09)
[2020-12-08] MEDS ORDERED: HALOPERIDOL LACTATE 5 MG/ML IM ONE (02:18)
[2020-12-08] MEDS ORDERED: LORazepam 2 MG/ML SDV VIAL IVPUSH ONE (06:34)
[2020-12-08 06:51] LABS: HEMATOCRIT 34.5 % (32.4-45.2); HEMOGLOBIN 11.6 GM/dL (10.7-15.3); MCH 27.9 pg (25.7-33.7); MCHC 33.7 g/dl (32.0-36.0); MEAN CELL VOLUME 82.7 fl (80-96); MEAN PLT VOLUME 8.6 fl (7.5-11.1); PLATELET COUNT 240 K/MM3 (134-434); RBC 4.17 M/mm3 (3.60-5.2); RDW 13.5 % (11.6-15.6); WHITE BLOOD COUNT 10.2 K/mm3 (4.0-10.0)
[2020-12-08 07:09] LABS: CALCIUM 9.3 mg/dL (8.5-10.1)
[2020-12-08 07:10] LABS: ALBUMIN 3.7 g/dl (3.4-5.0); BLOOD UREA NITROGEN 15.2 mg/dL (7-18); MAGNESIUM 1.9 mg/dL (1.8-2.4)
[2020-12-08 07:13] LABS: PHOSPHOROUS 3.4 mg/dL (2.5-4.9)
[2020-12-08 07:15] LABS: BILIRUBIN,TOTAL 0.6 mg/dL (0.2-1); TOT PROT 7.2 g/dl (6.4-8.2)
[2020-12-08] MEDS: ASPIRIN COATED 81 MG TABLET.EC PO SCH (09:48)
[2020-12-08] MEDS: amLODIPine BESYLATE 10 MG TABLET (FP) PO SCH (09:48)
[2020-12-08] MEDS: LOSARTAN POTASSIUM 25 MG TABLET PO SCH (09:48)
[2020-12-08] MEDS: ENOXAPARIN NA (PORCINE) 40 MG/0.4 ML DISP.SYRIN SQ SCH (09:49)
[2020-12-08] MEDS ORDERED: MELATONIN 5 MG TABLETS PO ONE (22:00)
[2020-12-08] MEDS: ATORVASTATIN CA 40 MG TABLET (FP) PO SCH (22:42)
[2020-12-08] MEDS: ASCORBIC ACID 500 MG TABLET (FP) PO SCH (22:42)
[2020-12-08] MEDS: ZINC SULFATE 220 MG CAPSULE (FP) PO SCH (22:42)
[2020-12-09 07:36] LABS: EOS % 4.8 % (0-4.5); HEMATOCRIT 32.8 % (32.4-45.2); HEMOGLOBIN 11.2 GM/dL (10.7-15.3); LYMPH % 27.4 % (8-40); MCH 28.1 pg (25.7-33.7); MCHC 34.1 g/dl (32.0-36.0); MEAN CELL VOLUME 82.4 fl (80-96); MONO % 9.2 % (3.8-10.2); NEUT % 57.6 % (42.8-82.8); PLATELET COUNT 211 K/MM3 (134-434); RBC 3.97 M/mm3 (3.60-5.2); RDW 13.7 % (11.6-15.6); WHITE BLOOD COUNT 8.4 K/mm3 (4.0-10.0)
[2020-12-09 08:02] LABS: ALBUMIN 3.3 g/dl (3.4-5.0); MAGNESIUM 1.9 mg/dL (1.8-2.4)
[2020-12-09 08:03] LABS: CREATININE 0.9 mg/dL (0.55-1.3)
[2020-12-09 08:04] LABS: PHOSPHOROUS 3.4 mg/dL (2.5-4.9)
[2020-12-09 08:06] LABS: BILIRUBIN,TOTAL 0.6 mg/dL (0.2-1); TOT PROT 6.5 g/dl (6.4-8.2)
[2020-12-09] MEDS ORDERED: LORazepam 2 MG/ML SDV VIAL IM ONE (08:07)
[2020-12-09] MEDS ORDERED: PT OWN MED DRAWER 7, Y5N ONE (10:21)
[2020-12-09] MEDS: ASPIRIN COATED 81 MG TABLET.EC PO SCH (10:38)
[2020-12-09] MEDS: ASCORBIC ACID 500 MG TABLET (FP) PO SCH ×2 (10:38→21:32)
[2020-12-09] MEDS: ENOXAPARIN NA (PORCINE) 40 MG/0.4 ML DISP.SYRIN SQ SCH (10:38)
[2020-12-09] MEDS: amLODIPine BESYLATE 10 MG TABLET (FP) PO SCH (10:38)
[2020-12-09] MEDS: ZINC SULFATE 220 MG CAPSULE (FP) PO SCH ×2 (10:38→21:32)
[2020-12-09] MEDS: ERTAPENEM SODIUM 1 GM in SODIUM CHLORIDE 50 ML IVPB SCH (10:38)
[2020-12-09] MEDS: CHOLECALCIFEROL (VIT D3) 1,000 UNIT (25 MCG) TABLET PO SCH (10:39)
[2020-12-09] MEDS: LOSARTAN POTASSIUM 25 MG TABLET PO SCH (10:40)
[2020-12-09] MEDS: MELATONIN 5 MG TABLETS PO SCH (21:31)
[2020-12-09] MEDS: ATORVASTATIN CA 40 MG TABLET (FP) PO SCH (21:32)
[2020-12-10] MEDS: INSULIN SLIDING SCALE (NOVOLOG) 1 VIAL SQ SCH ×4 (06:21→21:41)
[2020-12-10 07:07] LABS: BASO % 0.6 % (0-2.0); EOS % 3.8 % (0-4.5); HEMATOCRIT 33.5 % (32.4-45.2); HEMOGLOBIN 11.5 GM/dL (10.7-15.3); LYMPH % 23.4 % (8-40); MCH 28.1 pg (25.7-33.7); MCHC 34.4 g/dl (32.0-36.0); MEAN CELL VOLUME 81.7 fl (80-96); MEAN PLT VOLUME 8.9 fl (7.5-11.1); NEUT % 64.2 % (42.8-82.8); PLATELET COUNT 254 K/MM3 (134-434); RDW 13.7 % (11.6-15.6); WHITE BLOOD COUNT 12.1 K/mm3 (4.0-10.0)
[2020-12-10 07:26] LABS: ALBUMIN 3.5 g/dl (3.4-5.0); BLOOD UREA NITROGEN 14.7 mg/dL (7-18)
[2020-12-10 07:29] LABS: CREATININE 1.1 mg/dL (0.55-1.3)
[2020-12-10 07:31] LABS: BILIRUBIN,TOTAL 0.7 mg/dL (0.2-1)
[2020-12-10 07:33] LABS: TOT PROT 6.9 g/dl (6.4-8.2)
[2020-12-10] MEDS ORDERED: PT OWN MED DRAWER 7, Y5N ONE (09:44)
[2020-12-10] MEDS: ERTAPENEM SODIUM 1 GM in SODIUM CHLORIDE 50 ML IVPB SCH (09:56)
[2020-12-10] MEDS: amLODIPine BESYLATE 10 MG TABLET (FP) PO SCH (09:57)
[2020-12-10] MEDS: ZINC SULFATE 220 MG CAPSULE (FP) PO SCH ×2 (09:57→21:34)
[2020-12-10] MEDS: CHOLECALCIFEROL (VIT D3) 1,000 UNIT (25 MCG) TABLET PO SCH (09:57)
[2020-12-10] MEDS: ASCORBIC ACID 500 MG TABLET (FP) PO SCH ×2 (09:57→21:33)
[2020-12-10] MEDS: ASPIRIN COATED 81 MG TABLET.EC PO SCH (09:58)
[2020-12-10] MEDS: ENOXAPARIN NA (PORCINE) 40 MG/0.4 ML DISP.SYRIN SQ SCH (09:58)
[2020-12-10] MEDS: LOSARTAN POTASSIUM 25 MG TABLET PO SCH (09:58)
[2020-12-10] MEDS: ATORVASTATIN CA 40 MG TABLET (FP) PO SCH (21:33)
[2020-12-10] MEDS: MELATONIN 5 MG TABLETS PO SCH (21:33)
[2020-12-11] MEDS: INSULIN SLIDING SCALE (NOVOLOG) 1 VIAL SQ SCH ×4 (06:35→22:00)
[2020-12-11 07:14] LABS: BASO % 0.9 % (0-2.0); HEMATOCRIT 32.1 % (32.4-45.2); HEMOGLOBIN 10.9 GM/dL (10.7-15.3); LYMPH % 35.5 % (8-40); MCHC 33.8 g/dl (32.0-36.0); MEAN CELL VOLUME 82.7 fl (80-96); MONO % 9.2 % (3.8-10.2); NEUT % 48.4 % (42.8-82.8); PLATELET COUNT 232 K/MM3 (134-434); RBC 3.89 M/mm3 (3.60-5.2); RDW 13.9 % (11.6-15.6)
[2020-12-11 07:28] LABS: CALCIUM 9.3 mg/dL (8.5-10.1)
[2020-12-11 07:29] LABS: ALBUMIN 3.2 g/dl (3.4-5.0); BLOOD UREA NITROGEN 15.7 mg/dL (7-18); MAGNESIUM 1.9 mg/dL (1.8-2.4)
[2020-12-11 07:32] LABS: CREATININE 1.1 mg/dL (0.55-1.3); PHOSPHOROUS 4.1 mg/dL (2.5-4.9)
[2020-12-11 07:33] LABS: BILIRUBIN,TOTAL 0.6 mg/dL (0.2-1); TOT PROT 6.4 g/dl (6.4-8.2)
[2020-12-11] MEDS ORDERED: PT OWN MED DRAWER 7, Y5N ONE ×2 (08:50→17:35)
[2020-12-11] MEDS: ENOXAPARIN NA (PORCINE) 40 MG/0.4 ML DISP.SYRIN SQ SCH (09:11)
[2020-12-11] MEDS: ERTAPENEM SODIUM 1 GM in SODIUM CHLORIDE 50 ML IVPB SCH (09:11)
[2020-12-11] MEDS: ASPIRIN COATED 81 MG TABLET.EC PO SCH (09:12)
[2020-12-11] MEDS: ZINC SULFATE 220 MG CAPSULE (FP) PO SCH ×2 (09:12→21:48)
[2020-12-11] MEDS: CHOLECALCIFEROL (VIT D3) 1,000 UNIT (25 MCG) TABLET PO SCH (09:12)
[2020-12-11] MEDS: ASCORBIC ACID 500 MG TABLET (FP) PO SCH ×2 (09:12→21:48)
[2020-12-11] MEDS: amLODIPine BESYLATE 10 MG TABLET (FP) PO SCH (09:12)
[2020-12-11] MEDS: LOSARTAN POTASSIUM 25 MG TABLET PO SCH (09:12)
[2020-12-11] MEDS ORDERED: ACETAMINOPHEN 500 MG TABLET (FP) PO ONE (17:16)
[2020-12-11] MEDS: ATORVASTATIN CA 40 MG TABLET (FP) PO SCH (21:48)
[2020-12-11] MEDS: MELATONIN 5 MG TABLETS PO SCH (21:48)
[2020-12-12] MEDS ORDERED: LORazepam 2 MG/ML SDV VIAL IVPUSH ONE (00:32)
[2020-12-12] MEDS: INSULIN SLIDING SCALE (NOVOLOG) 1 VIAL SQ SCH ×4 (06:01→22:06)
[2020-12-12] MEDS: LOSARTAN POTASSIUM 25 MG TABLET PO SCH (09:51)
[2020-12-12] MEDS: ENOXAPARIN NA (PORCINE) 40 MG/0.4 ML DISP.SYRIN SQ SCH (09:51)
[2020-12-12] MEDS: ERTAPENEM SODIUM 1 GM in SODIUM CHLORIDE 50 ML IVPB SCH (09:51)
[2020-12-12] MEDS: LACTOBACILLUS ACIDOPHILUS 1 TABLET PO SCH (11:59)
[2020-12-12] MEDS: ASCORBIC ACID 500 MG TABLET (FP) PO SCH ×3 (11:59→22:08)
[2020-12-12] MEDS: ASPIRIN COATED 81 MG TABLET.EC PO SCH (11:59)
[2020-12-12] MEDS: amLODIPine BESYLATE 10 MG TABLET (FP) PO SCH (11:59)
[2020-12-12] MEDS: CHOLECALCIFEROL (VIT D3) 1,000 UNIT (25 MCG) TABLET PO SCH (11:59)
[2020-12-12] MEDS: ZINC SULFATE 220 MG CAPSULE (FP) PO SCH ×3 (11:59→22:06)
[2020-12-12] MEDS: ATORVASTATIN CA 40 MG TABLET (FP) PO SCH ×2 (21:08→22:08)
[2020-12-12] MEDS: MELATONIN 5 MG TABLETS PO SCH ×2 (21:09→22:19)
[2020-12-13] MEDS: INSULIN SLIDING SCALE (NOVOLOG) 1 VIAL SQ SCH ×4 (06:34→21:21)
[2020-12-13 07:32] LABS: HEMATOCRIT 33.9 % (32.4-45.2); HEMOGLOBIN 11.5 GM/dL (10.7-15.3); MCH 28.2 pg (25.7-33.7); MCHC 33.9 g/dl (32.0-36.0); MEAN CELL VOLUME 83.2 fl (80-96); PLATELET COUNT 239 K/MM3 (134-434); RBC 4.08 M/mm3 (3.60-5.2); RDW 13.4 % (11.6-15.6); WHITE BLOOD COUNT 7.2 K/mm3 (4.0-10.0)
[2020-12-13 07:53] LABS: ALBUMIN 3.2 g/dl (3.4-5.0); BLOOD UREA NITROGEN 11.8 mg/dL (7-18); CALCIUM 9.1 mg/dL (8.5-10.1); MAGNESIUM 1.9 mg/dL (1.8-2.4)
[2020-12-13 07:57] LABS: PHOSPHOROUS 3.6 mg/dL (2.5-4.9)
[2020-12-13 07:58] LABS: BILIRUBIN,TOTAL 0.6 mg/dL (0.2-1); TOT PROT 6.5 g/dl (6.4-8.2)
[2020-12-13 07:59] LABS: CREATININE 0.9 mg/dL (0.55-1.3)
[2020-12-13] MEDS: ASPIRIN COATED 81 MG TABLET.EC PO SCH (10:14)
[2020-12-13] MEDS: ENOXAPARIN NA (PORCINE) 40 MG/0.4 ML DISP.SYRIN SQ SCH (10:14)
[2020-12-13] MEDS: LOSARTAN POTASSIUM 25 MG TABLET PO SCH (10:14)
[2020-12-13] MEDS: ERTAPENEM SODIUM 1 GM in SODIUM CHLORIDE 50 ML IVPB SCH (10:16)
[2020-12-13] MEDS: LACTOBACILLUS ACIDOPHILUS 1 TABLET PO SCH (10:39)
[2020-12-13] MEDS: CHOLECALCIFEROL (VIT D3) 1,000 UNIT (25 MCG) TABLET PO SCH (10:39)
[2020-12-13] MEDS: ZINC SULFATE 220 MG CAPSULE (FP) PO SCH ×2 (10:39→21:04)
[2020-12-13] MEDS: amLODIPine BESYLATE 10 MG TABLET (FP) PO SCH (10:39)
[2020-12-13] MEDS: ASCORBIC ACID 500 MG TABLET (FP) PO SCH ×2 (10:39→21:04)
[2020-12-13] MEDS: AMINO ACIDS/PROTEIN HYDROLYS 30 ML LIQUID.PKT PO SCH (17:22)
[2020-12-13] MEDS: ATORVASTATIN CA 40 MG TABLET (FP) PO SCH (21:04)
[2020-12-13] MEDS: MELATONIN 5 MG TABLETS PO SCH (21:05)
[2020-12-14] MEDS: INSULIN SLIDING SCALE (NOVOLOG) 1 VIAL SQ SCH ×4 (06:10→22:21)
[2020-12-14 07:15] LABS: HEMATOCRIT 34.2 % (32.4-45.2); HEMOGLOBIN 11.3 GM/dL (10.7-15.3); MCH 27.8 pg (25.7-33.7); MEAN CELL VOLUME 84.2 fl (80-96); MEAN PLT VOLUME 9.5 fl (7.5-11.1); PLATELET COUNT 252 K/MM3 (134-434); RBC 4.07 M/mm3 (3.60-5.2); RDW 13.8 % (11.6-15.6); WHITE BLOOD COUNT 8.8 K/mm3 (4.0-10.0)
[2020-12-14 07:43] LABS: ALBUMIN 3.2 g/dl (3.4-5.0); CALCIUM 9.7 mg/dL (8.5-10.1)
[2020-12-14 07:47] LABS: CREATININE 0.9 mg/dL (0.55-1.3)
[2020-12-14 07:48] LABS: BILIRUBIN,TOTAL 0.5 mg/dL (0.2-1); TOT PROT 6.5 g/dl (6.4-8.2)
[2020-12-14] MEDS: ASPIRIN COATED 81 MG TABLET.EC PO SCH ×2 (09:58→11:23)
[2020-12-14] MEDS: AMINO ACIDS/PROTEIN HYDROLYS 30 ML LIQUID.PKT PO SCH ×3 (09:58→17:24)
[2020-12-14] MEDS: ASCORBIC ACID 500 MG TABLET (FP) PO SCH ×3 (09:58→22:19)
[2020-12-14] MEDS: LACTOBACILLUS ACIDOPHILUS 1 TABLET PO SCH ×2 (09:58→11:23)
[2020-12-14] MEDS: CHOLECALCIFEROL (VIT D3) 1,000 UNIT (25 MCG) TABLET PO SCH ×2 (09:58→11:24)
[2020-12-14] MEDS: MULTIVITAMINS THER W-MINERALS COMBO TABLET (FP) PO SCH ×2 (09:58→11:24)
[2020-12-14] MEDS: LOSARTAN POTASSIUM 25 MG TABLET PO SCH ×2 (09:58→11:23)
[2020-12-14] MEDS: amLODIPine BESYLATE 10 MG TABLET (FP) PO SCH ×2 (09:58→11:23)
[2020-12-14] MEDS: ZINC SULFATE 220 MG CAPSULE (FP) PO SCH ×3 (09:58→22:19)
[2020-12-14] MEDS: ENOXAPARIN NA (PORCINE) 40 MG/0.4 ML DISP.SYRIN SQ SCH (09:58)
[2020-12-14] MEDS ORDERED: ACETAMINOPHEN 325 MG TABLET (FP) ONE (21:49)
[2020-12-14] MEDS: ATORVASTATIN CA 40 MG TABLET (FP) PO SCH (22:19)
[2020-12-14] MEDS: MELATONIN 5 MG TABLETS PO SCH (22:19)
[2020-12-14] MEDS ORDERED: ACETAMINOPHEN 325 MG TABLET (FP) PO ONE (22:24)
[2020-12-15] MEDS: INSULIN SLIDING SCALE (NOVOLOG) 1 VIAL SQ SCH ×4 (06:38→22:50)
[2020-12-15] MEDS ORDERED: ACETAMINOPHEN 1000 MG/100 ML VIAL (NON FORMULARY) IVPB PRN (08:44)
[2020-12-15] MEDS: MULTIVITAMINS THER W-MINERALS COMBO TABLET (FP) PO SCH (09:35)
[2020-12-15] MEDS: LOSARTAN POTASSIUM 25 MG TABLET PO SCH (09:35)
[2020-12-15] MEDS: ASCORBIC ACID 500 MG TABLET (FP) PO SCH ×2 (09:35→21:03)
[2020-12-15] MEDS: ASPIRIN COATED 81 MG TABLET.EC PO SCH (09:35)
[2020-12-15] MEDS: AMINO ACIDS/PROTEIN HYDROLYS 30 ML LIQUID.PKT PO SCH ×2 (09:35→18:20)
[2020-12-15] MEDS: LACTOBACILLUS ACIDOPHILUS 1 TABLET PO SCH (09:35)
[2020-12-15] MEDS: ZINC SULFATE 220 MG CAPSULE (FP) PO SCH ×2 (09:35→21:02)
[2020-12-15] MEDS: amLODIPine BESYLATE 10 MG TABLET (FP) PO SCH (09:35)
[2020-12-15] MEDS: CHOLECALCIFEROL (VIT D3) 1,000 UNIT (25 MCG) TABLET PO SCH (09:35)
[2020-12-15] MEDS ORDERED: diphenhydrAMINE HCL 25 MG CAPSULE (FP) PO ONE (10:38)
[2020-12-15] MEDS: ACETAMINOPHEN 325 MG TABLET (FP) PO PRN (19:52)
[2020-12-15] MEDS: ATORVASTATIN CA 40 MG TABLET (FP) PO SCH (21:02)
[2020-12-15] MEDS: MELATONIN 5 MG TABLETS PO SCH (21:02)
[2020-12-16] MEDS: INSULIN SLIDING SCALE (NOVOLOG) 1 VIAL SQ SCH ×4 (06:39→22:00)
[2020-12-16] MEDS: ZINC SULFATE 220 MG CAPSULE (FP) PO SCH ×2 (09:28→21:01)
[2020-12-16] MEDS: AMINO ACIDS/PROTEIN HYDROLYS 30 ML LIQUID.PKT PO SCH ×2 (09:28→16:36)
[2020-12-16] MEDS: MULTIVITAMINS THER W-MINERALS COMBO TABLET (FP) PO SCH (09:28)
[2020-12-16] MEDS: LACTOBACILLUS ACIDOPHILUS 1 TABLET PO SCH (09:28)
[2020-12-16] MEDS: CHOLECALCIFEROL (VIT D3) 1,000 UNIT (25 MCG) TABLET PO SCH (09:28)
[2020-12-16] MEDS: ASCORBIC ACID 500 MG TABLET (FP) PO SCH ×2 (09:28→21:01)
[2020-12-16] MEDS: amLODIPine BESYLATE 10 MG TABLET (FP) PO SCH (09:28)
[2020-12-16] MEDS: LOSARTAN POTASSIUM 25 MG TABLET PO SCH (09:28)
[2020-12-16] MEDS: ASPIRIN COATED 81 MG TABLET.EC PO SCH (09:29)
[2020-12-16] MEDS: diphenhydrAMINE HCL 12.5 MG/5 ML UNIT-DOSE CUPS PO ONE ×2 (11:24→12:13)
[2020-12-16] MEDS: ACETAMINOPHEN 325 MG TABLET (FP) PO PRN (15:35)
[2020-12-16] MEDS ORDERED: PT OWN MED DRAWER 7, Y5N ONE (16:33)
[2020-12-16] MEDS ORDERED: PHENYLEPHRINE HCL/COCOA BUTTER SUPPOSITORY RC PRN (20:04)
[2020-12-16] MEDS: ATORVASTATIN CA 40 MG TABLET (FP) PO SCH (21:01)
[2020-12-16] MEDS: MELATONIN 5 MG TABLETS PO SCH (21:01)
[2020-12-17] MEDS: INSULIN SLIDING SCALE (NOVOLOG) 1 VIAL SQ SCH ×2 (06:21→11:49)
[2020-12-17] MEDS: amLODIPine BESYLATE 10 MG TABLET (FP) PO SCH (09:08)
[2020-12-17] MEDS: LOSARTAN POTASSIUM 25 MG TABLET PO SCH (09:08)
[2020-12-17] MEDS: ASPIRIN COATED 81 MG TABLET.EC PO SCH (09:11)
[2020-12-17] MEDS: CHOLECALCIFEROL (VIT D3) 1,000 UNIT (25 MCG) TABLET PO SCH (09:11)
[2020-12-17] MEDS: LACTOBACILLUS ACIDOPHILUS 1 TABLET PO SCH (09:11)
[2020-12-17] MEDS: AMINO ACIDS/PROTEIN HYDROLYS 30 ML LIQUID.PKT PO SCH (09:11)
[2020-12-17] MEDS: ASCORBIC ACID 500 MG TABLET (FP) PO SCH (09:11)
[2020-12-17] MEDS: MULTIVITAMINS THER W-MINERALS COMBO TABLET (FP) PO SCH (09:11)
[2020-12-17] MEDS: ZINC SULFATE 220 MG CAPSULE (FP) PO SCH (09:12)
[2020-12-17 11:26] VITALS: TEMP 97.8
[2020-12-17 12:26] VITALS: BP 149/68; PULSE 80
== END 2020-12-17 12:45 | DRG 689 ==
LOC: JER 12:02 → JERBED 16:14 → J4S 18:48
PROVIDERS: ATTEND Internal Medicine
DX: N39.0 Urinary tract infection, site not specified (principal); G93.41 Metabolic encephalopathy; I24.8 Other forms of acute ischemic heart disease; Z16.12 Extended spectrum beta lactamase (ESBL) resistance; F03.90 Unspecified dementia, unspecified severity, without behavioral disturbance, psychotic disturbance, mood disturbance, and anxiety; E11.9 Type 2 diabetes mellitus without complications; I10 Essential (primary) hypertension; E78.5 Hyperlipidemia, unspecified; F41.8 Other specified anxiety disorders; I16.0 Hypertensive urgency
CPT/HCPCS: 36415; 70450-TC; 71045-TC-FY; 74177-TC; 80048; 80053; 80307; 81003; 82550; 82553; 82803; 82962; 83605; 83735; 84100; 84443; 84484; 85025; 85027; 85610; 85730; 87040; 87086; 87186; 93005; 93010; 99285-25; C9803; Q9967; U0003; U0005

== ENCOUNTER 2020-12-25 11:54 | Inpatient (IN) | payer OTHER, BC ==
[2020-12-25] MEDS ORDERED: HALOPERIDOL LACTATE 5 MG/ML IM ONE (12:04)
[2020-12-25] MEDS ORDERED: HALOPERIDOL DECANOATE 100 MG/ML IM ONE (12:10)
[2020-12-25] MEDS ORDERED: HALOPERIDOL LACTATE 5 MG/ML ONE (12:19)
[2020-12-25 13:12] LABS: BASO % 0.7 % (0-2.0); HEMATOCRIT 33.8 % (32.4-45.2); HEMOGLOBIN 11.1 GM/dL (10.7-15.3); LYMPH % 26.4 % (8-40); MCH 26.7 pg (25.7-33.7); MCHC 32.7 g/dl (32.0-36.0); MEAN CELL VOLUME 81.5 fl (80-96); MEAN PLT VOLUME 9.6 fl (7.5-11.1); MONO % 8.7 % (3.8-10.2); NEUT % 60.2 % (42.8-82.8); PLATELET COUNT 278 10^3/uL (134-434); RBC 4.15 M/mm3 (3.60-5.2); RDW 13.4 % (11.6-15.6); WHITE BLOOD COUNT 11.1 K/mm3 (4.0-10.0)
[2020-12-25 13:32] LABS: ALBUMIN 3.6 g/dl (3.4-5.0); BLOOD UREA NITROGEN 13.2 mg/dL (7-18); CALCIUM 9.6 mg/dL (8.5-10.1)
[2020-12-25 13:35] LABS: CREATININE 0.9 mg/dL (0.55-1.3)
[2020-12-25 13:37] LABS: BILIRUBIN,TOTAL 0.7 mg/dL (0.2-1); TOT PROT 7.4 g/dl (6.4-8.2)
[2020-12-25 13:43] LABS: EPI CELLS 5 /uL (0-25.1); HYALINE CASTS 0 /uL (0-3.1); PH,URINE 5.5 (5.0-8.0); URINE APPEARANCE CLOUDY; URINE BACTERIA 21 /uL (0-1359); URINE BILIRUBIN NEGATIVE (NEGATIVE); URINE COLOR YELLOW; URINE GLUCOSE (UA) NEGATIVE (NEGATIVE); URINE KETONE NEGATIVE (NEGATIVE); URINE LEUK ESTERASE 3+ (NEGATIVE); URINE NITRITE NEGATIVE (NEGATIVE); URINE PROTEIN NEGATIVE (NEGATIVE); URINE RBC 12 /uL (0-23.9); URINE UROBILINOGEN 0.2 mg/dL (0.2-1.0); URINE WBC 1262 /uL (0-25.8)
[2020-12-25] MEDS ORDERED: CEFTRIAXONE 1,000 MG in DEXTROSE 5%-WATER - 50 ML IVPB ONE (14:02)
[2020-12-25] MEDS ORDERED: CEFTRIAXONE 1 GM/50 ML BAG ONE (14:11)
[2020-12-25] MEDS ORDERED: ASCORBIC ACID 500 MG TABLET (FP) ONE (21:05)
[2020-12-25] MEDS ORDERED: MELATONIN 5 MG TABLETS ONE (21:05)
[2020-12-25] MEDS ORDERED: ATORVASTATIN CA 40 MG TABLET (FP) ONE (21:06)
[2020-12-25] MEDS: MELATONIN 5 MG TABLETS PO SCH (21:27)
[2020-12-25] MEDS: INSULIN SLIDING SCALE (NOVOLOG) 1 VIAL SQ SCH (21:27)
[2020-12-25] MEDS: ATORVASTATIN CA 40 MG TABLET (FP) PO SCH (21:27)
[2020-12-25] MEDS: ASCORBIC ACID 500 MG TABLET (FP) PO SCH (21:27)
[2020-12-26] MEDS ORDERED: PIPERACILLIN/TAZOB 3.375 GM 3.375 GM in DEXTROSE 5%-WATER - 50 ML IVPB SCH (02:00)
[2020-12-26] MEDS ORDERED: PIPERACILLIN/TAZOBACTAM 3.375 GM VIAL IVPB ONE ×3 (02:47→17:19)
[2020-12-26] MEDS ORDERED: DEXTROSE 5%-WATER - 50 ML IVPB ONE ×3 (02:47→17:20)
[2020-12-26] MEDS: PIPERACILLIN/TAZOB 3.375 GM 3.375 GM in DEXTROSE 5%-WATER - 50 ML IVPB SCH ×2 (02:48→10:10)
[2020-12-26 03:33] VITALS: BMI 23.5
[2020-12-26] MEDS: INSULIN SLIDING SCALE (NOVOLOG) 1 VIAL SQ SCH ×4 (06:30→21:39)
[2020-12-26 08:20] LABS: HEMATOCRIT 31.1 % (32.4-45.2); HEMOGLOBIN 10.3 GM/dL (10.7-15.3); MCH 27.2 pg (25.7-33.7); MCHC 33.2 g/dl (32.0-36.0); MEAN PLT VOLUME 9.6 fl (7.5-11.1); PLATELET COUNT 240 10^3/uL (134-434); RDW 13.5 % (11.6-15.6); WHITE BLOOD COUNT 8.1 K/mm3 (4.0-10.0)
[2020-12-26 08:48] LABS: ALBUMIN 3.1 g/dl (3.4-5.0); BLOOD UREA NITROGEN 12.7 mg/dL (7-18); CALCIUM 9.3 mg/dL (8.5-10.1)
[2020-12-26 08:51] LABS: PHOSPHOROUS 4.3 mg/dL (2.5-4.9)
[2020-12-26 08:52] LABS: BILIRUBIN,TOTAL 0.7 mg/dL (0.2-1)
[2020-12-26 08:53] LABS: TOT PROT 6.3 g/dl (6.4-8.2)
[2020-12-26] MEDS: ESCITALOPRAM OXALATE 10 MG TABLET PO SCH (10:09)
[2020-12-26] MEDS: LORazepam 0.5 MG TABLET PO PRN (10:09)
[2020-12-26] MEDS: amLODIPine BESYLATE 10 MG TABLET (FP) PO SCH (10:09)
[2020-12-26] MEDS: LACTOBACILLUS ACIDOPHILUS 1 TABLET PO SCH (10:09)
[2020-12-26] MEDS: ASCORBIC ACID 500 MG TABLET (FP) PO SCH ×2 (10:09→21:39)
[2020-12-26] MEDS: ASPIRIN COATED 81 MG TABLET.EC PO SCH (10:09)
[2020-12-26] MEDS: LOSARTAN POTASSIUM 25 MG TABLET PO SCH (10:09)
[2020-12-26] MEDS: CHOLECALCIFEROL (VIT D3) 1,000 UNIT (25 MCG) TABLET PO SCH (10:10)
[2020-12-26] MEDS: ENOXAPARIN NA (PORCINE) 40 MG/0.4 ML DISP.SYRIN SQ SCH (10:10)
[2020-12-26] MEDS ORDERED: INSULIN (NOVOLOG) ASPART 100 UNITS/ML 10ML VIAL ONE (11:08)
[2020-12-26] MEDS ORDERED: PT OWN MED DRAWER 7, Y5N ONE (18:55)
[2020-12-26] MEDS: MELATONIN 5 MG TABLETS PO SCH (21:39)
[2020-12-26] MEDS: ATORVASTATIN CA 40 MG TABLET (FP) PO SCH (21:39)
[2020-12-27] MEDS: INSULIN SLIDING SCALE (NOVOLOG) 1 VIAL SQ SCH ×4 (06:18→21:27)
[2020-12-27 08:38] LABS: HEMATOCRIT 30.5 % (32.4-45.2); HEMOGLOBIN 10.3 GM/dL (10.7-15.3); MCH 27.6 pg (25.7-33.7); MCHC 33.7 g/dl (32.0-36.0); MEAN CELL VOLUME 81.8 fl (80-96); MEAN PLT VOLUME 9.4 fl (7.5-11.1); PLATELET COUNT 231 10^3/uL (134-434); RBC 3.73 M/mm3 (3.60-5.2); RDW 13.2 % (11.6-15.6); WHITE BLOOD COUNT 7.8 K/mm3 (4.0-10.0)
[2020-12-27 08:55] LABS: CALCIUM 9.3 mg/dL (8.5-10.1)
[2020-12-27 08:56] LABS: BLOOD UREA NITROGEN 15.3 mg/dL (7-18)
[2020-12-27 08:59] LABS: CREATININE 0.9 mg/dL (0.55-1.3); PHOSPHOROUS 3.6 mg/dL (2.5-4.9)
[2020-12-27 09:00] LABS: BILIRUBIN,TOTAL 0.4 mg/dL (0.2-1); TOT PROT 6.3 g/dl (6.4-8.2)
[2020-12-27] MEDS: ENOXAPARIN NA (PORCINE) 40 MG/0.4 ML DISP.SYRIN SQ SCH (10:57)
[2020-12-27] MEDS: ASCORBIC ACID 500 MG TABLET (FP) PO SCH ×2 (10:57→21:17)
[2020-12-27] MEDS: CHOLECALCIFEROL (VIT D3) 1,000 UNIT (25 MCG) TABLET PO SCH (10:57)
[2020-12-27] MEDS: LOSARTAN POTASSIUM 25 MG TABLET PO SCH (10:57)
[2020-12-27] MEDS: ESCITALOPRAM OXALATE 10 MG TABLET PO SCH (10:57)
[2020-12-27] MEDS: LACTOBACILLUS ACIDOPHILUS 1 TABLET PO SCH (10:57)
[2020-12-27] MEDS: amLODIPine BESYLATE 10 MG TABLET (FP) PO SCH (10:57)
[2020-12-27] MEDS: ASPIRIN COATED 81 MG TABLET.EC PO SCH (10:57)
[2020-12-27] MEDS ORDERED: diphenhydrAMINE HCL 25 MG CAPSULE (FP) PO ONE (11:44)
[2020-12-27] MEDS ORDERED: INSULIN (NOVOLOG) ASPART 100 UNITS/ML 10ML VIAL ONE ×2 (12:32→16:26)
[2020-12-27] MEDS: ATORVASTATIN CA 40 MG TABLET (FP) PO SCH (21:17)
[2020-12-27] MEDS: MELATONIN 5 MG TABLETS PO SCH (21:17)
[2020-12-28] MEDS ORDERED: INSULIN (NOVOLOG) ASPART 100 UNITS/ML 10ML VIAL ONE (06:02)
[2020-12-28] MEDS: INSULIN SLIDING SCALE (NOVOLOG) 1 VIAL SQ SCH ×4 (06:04→21:55)
[2020-12-28] MEDS: ENOXAPARIN NA (PORCINE) 40 MG/0.4 ML DISP.SYRIN SQ SCH (09:55)
[2020-12-28] MEDS: ASCORBIC ACID 500 MG TABLET (FP) PO SCH ×2 (09:56→21:55)
[2020-12-28] MEDS: CHOLECALCIFEROL (VIT D3) 1,000 UNIT (25 MCG) TABLET PO SCH (09:56)
[2020-12-28] MEDS: ESCITALOPRAM OXALATE 10 MG TABLET PO SCH (09:56)
[2020-12-28] MEDS: LACTOBACILLUS ACIDOPHILUS 1 TABLET PO SCH (09:56)
[2020-12-28] MEDS: ASPIRIN COATED 81 MG TABLET.EC PO SCH (09:56)
[2020-12-28] MEDS: LORazepam 0.5 MG TABLET PO PRN (09:56)
[2020-12-28] MEDS: LOSARTAN POTASSIUM 25 MG TABLET PO SCH (09:57)
[2020-12-28] MEDS: amLODIPine BESYLATE 10 MG TABLET (FP) PO SCH (09:57)
[2020-12-28] MEDS ORDERED: diphenhydrAMINE HCL 25 MG CAPSULE (FP) PO ONE (14:15)
[2020-12-28] MEDS: MELATONIN 5 MG TABLETS PO SCH (21:54)
[2020-12-28] MEDS: ATORVASTATIN CA 40 MG TABLET (FP) PO SCH (21:55)
[2020-12-29] MEDS: INSULIN SLIDING SCALE (NOVOLOG) 1 VIAL SQ SCH ×4 (06:21→21:13)
[2020-12-29] MEDS ORDERED: diphenhydrAMINE HCL 25 MG CAPSULE (FP) PO ONE (09:43)
[2020-12-29] MEDS ORDERED: LORazepam 0.5 MG TABLET PO PRN (09:56)
[2020-12-29] MEDS: LACTOBACILLUS ACIDOPHILUS 1 TABLET PO SCH (10:23)
[2020-12-29] MEDS: CHOLECALCIFEROL (VIT D3) 1,000 UNIT (25 MCG) TABLET PO SCH (10:23)
[2020-12-29] MEDS: amLODIPine BESYLATE 10 MG TABLET (FP) PO SCH (10:23)
[2020-12-29] MEDS: ESCITALOPRAM OXALATE 10 MG TABLET PO SCH (10:24)
[2020-12-29] MEDS: ASPIRIN COATED 81 MG TABLET.EC PO SCH (10:24)
[2020-12-29] MEDS: LOSARTAN POTASSIUM 25 MG TABLET PO SCH (10:24)
[2020-12-29] MEDS: ASCORBIC ACID 500 MG TABLET (FP) PO SCH ×2 (10:24→21:01)
[2020-12-29] MEDS: ENOXAPARIN NA (PORCINE) 40 MG/0.4 ML DISP.SYRIN SQ SCH (10:24)
[2020-12-29] MEDS ORDERED: INSULIN (NOVOLOG) ASPART 100 UNITS/ML 10ML VIAL ONE (20:54)
[2020-12-29] MEDS: ATORVASTATIN CA 40 MG TABLET (FP) PO SCH (21:00)
[2020-12-29] MEDS: MELATONIN 5 MG TABLETS PO SCH (21:00)
[2020-12-30] MEDS: INSULIN SLIDING SCALE (NOVOLOG) 1 VIAL SQ SCH ×2 (06:08→11:34)
[2020-12-30] MEDS: LOSARTAN POTASSIUM 25 MG TABLET PO SCH (10:32)
[2020-12-30] MEDS: CHOLECALCIFEROL (VIT D3) 1,000 UNIT (25 MCG) TABLET PO SCH (10:32)
[2020-12-30] MEDS: ASPIRIN COATED 81 MG TABLET.EC PO SCH (10:32)
[2020-12-30] MEDS: ESCITALOPRAM OXALATE 10 MG TABLET PO SCH (10:33)
[2020-12-30] MEDS: ENOXAPARIN NA (PORCINE) 40 MG/0.4 ML DISP.SYRIN SQ SCH (10:34)
[2020-12-30] MEDS: LACTOBACILLUS ACIDOPHILUS 1 TABLET PO SCH (10:34)
[2020-12-30] MEDS: amLODIPine BESYLATE 10 MG TABLET (FP) PO SCH (10:35)
[2020-12-30] MEDS: ASCORBIC ACID 500 MG TABLET (FP) PO SCH (10:35)
[2020-12-30 12:45] VITALS: BP 142/58; PULSE 76; TEMP 98.8
== END 2020-12-30 13:06 | disposition home health service (06) | DRG 690 ==
LOC: JER 11:54 → JERBED 15:46 → J6S 12-26 00:17
PROVIDERS: ATTEND Internal Medicine
DX: N39.0 Urinary tract infection, site not specified (principal); F03.91 Unspecified dementia, unspecified severity, with behavioral disturbance; I24.8 Other forms of acute ischemic heart disease; F05 Delirium due to known physiological condition; Z16.12 Extended spectrum beta lactamase (ESBL) resistance; E11.9 Type 2 diabetes mellitus without complications; K57.90 Diverticulosis of intestine, part unspecified, without perforation or abscess without bleeding; F41.8 Other specified anxiety disorders; I25.10 Atherosclerotic heart disease of native coronary artery without angina pectoris; I10 Essential (primary) hypertension; R07.89 Other chest pain; E78.5 Hyperlipidemia, unspecified; R41.82 Altered mental status, unspecified; Z86.73 Personal history of transient ischemic attack (TIA), and cerebral infarction without residual deficits
CPT/HCPCS: 36415; 71045-TC-FY; 80053; 81003; 82962; 83735; 84100; 84484; 85025; 85027; 87040; 87077; 87086; 93005; 93010; 97116-GP; 97162-GP; 99285-25; C9803; U0003; U0005

== ENCOUNTER 2020-12-31 00:41 | Emergency (ER) | payer OTHER, BC ==
[2020-12-31 01:01] VITALS: TEMP 98.7; BMI 29.5
[2020-12-31 01:37] LABS: BASO % 1.1 % (0-2.0); EOS % 5.9 % (0-4.5); HEMOGLOBIN 10.6 GM/dL (10.7-15.3); MCH 27.2 pg (25.7-33.7); MCHC 33.1 g/dl (32.0-36.0); MEAN CELL VOLUME 82.1 fl (80-96); MEAN PLT VOLUME 9.2 fl (7.5-11.1); MONO % 8.9 % (3.8-10.2); NEUT % 49.1 % (42.8-82.8); PLATELET COUNT 247 10^3/uL (134-434); RBC 3.89 M/mm3 (3.60-5.2); RDW 13.4 % (11.6-15.6); WHITE BLOOD COUNT 9.4 K/mm3 (4.0-10.0)
[2020-12-31] MEDS ORDERED: HALOPERIDOL LACTATE 5 MG/ML IM ONE (01:52)
[2020-12-31 01:54] LABS: CALCIUM 9.6 mg/dL (8.5-10.1)
[2020-12-31 01:55] LABS: ALBUMIN 3.5 g/dl (3.4-5.0); BLOOD UREA NITROGEN 15.4 mg/dL (7-18)
[2020-12-31 01:58] LABS: CREATININE 1.1 mg/dL (0.55-1.3)
[2020-12-31 01:59] LABS: BILIRUBIN,TOTAL 0.4 mg/dL (0.2-1); TOT PROT 6.8 g/dl (6.4-8.2)
[2020-12-31] MEDS ORDERED: HALOPERIDOL LACTATE 5 MG/ML ONE (01:59)
[2020-12-31 02:07] LABS: EPI CELLS 11 /uL (0-25.1); HYALINE CASTS 1 /uL (0-3.1); URINE APPEARANCE CLEAR; URINE BACTERIA 44 /uL (0-1359); URINE BILIRUBIN NEGATIVE (NEGATIVE); URINE COLOR YELLOW; URINE GLUCOSE (UA) NEGATIVE (NEGATIVE); URINE KETONE NEGATIVE (NEGATIVE); URINE LEUK ESTERASE 1+ (NEGATIVE); URINE NITRITE NEGATIVE (NEGATIVE); URINE PROTEIN NEGATIVE (NEGATIVE); URINE RBC 4 /uL (0-23.9); URINE UROBILINOGEN 0.2 mg/dL (0.2-1.0); URINE WBC 93 /uL (0-25.8)
[2020-12-31] MEDS ORDERED: LORazepam 2 MG/ML SDV VIAL ONE (02:13)
[2020-12-31] MEDS ORDERED: LORazepam 2 MG/ML SDV VIAL IM ONE (02:15)
[2020-12-31 05:31] VITALS: BP 168/79; PULSE 98
== END 2020-12-31 05:49 | disposition home or self-care (01) ==
LOC: JER 00:41
PROC: 3E023GC Introduction of Other Therapeutic Substance into Muscle, Percutaneous Approach (ICD-10-PCS; principal; 2020-12-31)
PROC: 3E023NZ Introduction of Analgesics, Hypnotics, Sedatives into Muscle, Percutaneous Approach (ICD-10-PCS; 2020-12-31)
DX: R41.82 Altered mental status, unspecified (principal)
CPT/HCPCS: 36415; 71045-TC-FY; 80053; 81003; 85025; 87086; 93005; 93010; 99285-25

== ENCOUNTER 2021-01-06 19:01 | Emergency (ER) | payer OTHER, BC ==
[2021-01-06 19:18] VITALS: BMI 22.8
[2021-01-06] MEDS ORDERED: SODIUM CHLORIDE 0.9% 500 ML INFUS.BAG IV ONE (19:45)
[2021-01-06] MEDS ORDERED: HALOPERIDOL LACTATE 5 MG/ML IM ONE (19:46)
[2021-01-06] MEDS ORDERED: LORazepam 2 MG/ML SDV VIAL IVPUSH ONE (19:48)
[2021-01-06] MEDS ORDERED: HALOPERIDOL LACTATE 5 MG/ML ONE (19:53)
[2021-01-06] MEDS ORDERED: LORazepam 2 MG/ML SDV VIAL ONE (20:19)
[2021-01-06 20:57] LABS: EOS % 5.4 % (0-4.5); HEMATOCRIT 29.4 % (32.4-45.2); HEMOGLOBIN 9.9 GM/dL (10.7-15.3); LYMPH % 34.4 % (8-40); MCH 27.5 pg (25.7-33.7); MCHC 33.9 g/dl (32.0-36.0); MEAN CELL VOLUME 81.2 fl (80-96); MEAN PLT VOLUME 9.5 fl (7.5-11.1); MONO % 7.6 % (3.8-10.2); NEUT % 51.6 % (42.8-82.8); PLATELET COUNT 214 10^3/uL (134-434); RBC 3.62 M/mm3 (3.60-5.2); RDW 13.4 % (11.6-15.6)
[2021-01-06 21:13] LABS: EPI CELLS 3 /uL (0-25.1); HYALINE CASTS 1 /uL (0-3.1); URINE APPEARANCE CLOUDY; URINE BACTERIA 227 /uL (0-1359); URINE BILIRUBIN NEGATIVE (NEGATIVE); URINE COLOR YELLOW; URINE GLUCOSE (UA) NEGATIVE (NEGATIVE); URINE KETONE NEGATIVE (NEGATIVE); URINE LEUK ESTERASE 3+ (NEGATIVE); URINE NITRITE NEGATIVE (NEGATIVE); URINE PROTEIN NEGATIVE (NEGATIVE); URINE RBC 10 /uL (0-23.9); URINE UROBILINOGEN 0.2 mg/dL (0.2-1.0); URINE WBC 922 /uL (0-25.8)
[2021-01-06 21:21] LABS: BLOOD UREA NITROGEN 29.3 mg/dL (7-18); CALCIUM 8.7 mg/dL (8.5-10.1)
[2021-01-06 21:22] LABS: ALBUMIN 3.4 g/dl (3.4-5.0)
[2021-01-06 21:25] LABS: CREATININE 1.2 mg/dL (0.55-1.3)
[2021-01-06 21:26] LABS: BILIRUBIN,TOTAL 0.3 mg/dL (0.2-1); TOT PROT 6.7 g/dl (6.4-8.2)
[2021-01-06] MEDS ORDERED: SULFAMETHOXAZOLE/TRIMETHOPRIM 800MG/160MG D.S. TABLET PO ONE (22:35)
[2021-01-06] MEDS ORDERED: SULFAMETHOXAZOLE/TRIMETHOPRIM 800MG/160MG D.S. TABLET ONE (22:39)
[2021-01-07 05:22] VITALS: BP 169/64; PULSE 72; TEMP 97.5
== END 2021-01-07 06:47 | disposition home or self-care (01) ==
LOC: JER 19:01
PROC: 3E033NZ Introduction of Analgesics, Hypnotics, Sedatives into Peripheral Vein, Percutaneous Approach (ICD-10-PCS; principal; 2021-01-06)
PROC: 3E023NZ Introduction of Analgesics, Hypnotics, Sedatives into Muscle, Percutaneous Approach (ICD-10-PCS; 2021-01-06)
DX: N39.0 Urinary tract infection, site not specified (principal)
CPT/HCPCS: 36415; 80053; 81003; 85025; 87040; 87086; 87186; 99284-25

== ENCOUNTER 2021-01-12 19:57 | Inpatient (IN) | payer OTHER, BC ==
[2021-01-12 22:23] LABS: BASO % 0.8 % (0-2.0); EOS % 4.1 % (0-4.5); HEMATOCRIT 35.7 % (32.4-45.2); HEMOGLOBIN 11.5 GM/dL (10.7-15.3); LYMPH % 24.4 % (8-40); MCH 26.6 pg (25.7-33.7); MCHC 32.3 g/dl (32.0-36.0); MEAN CELL VOLUME 82.4 fl (80-96); MEAN PLT VOLUME 9.7 fl (7.5-11.1); MONO % 12.9 % (3.8-10.2); NEUT % 57.8 % (42.8-82.8); PLATELET COUNT 206 10^3/uL (134-434); RBC 4.33 M/mm3 (3.60-5.2); RDW 13.2 % (11.6-15.6); WHITE BLOOD COUNT 5.3 K/mm3 (4.0-10.0)
[2021-01-12 22:25] LABS: CALCIUM 9.4 mg/dL (8.5-10.1)
[2021-01-12 22:26] LABS: ALBUMIN 3.9 g/dl (3.4-5.0); BLOOD UREA NITROGEN 29.8 mg/dL (7-18)
[2021-01-12 22:29] LABS: CREATININE 1.7 mg/dL (0.55-1.3)
[2021-01-12 22:30] LABS: BILIRUBIN,TOTAL 0.5 mg/dL (0.2-1); TOT PROT 7.7 g/dl (6.4-8.2)
[2021-01-12] MEDS ORDERED: SODIUM CHLORIDE 0.9% 500 ML INFUS.BAG IV ONE (22:49)
[2021-01-12 23:03] LABS: LACTIC ACID 2.2 mmol/L (0.4-2.0)
[2021-01-13 01:59] LABS: EPI CELLS 8 /uL (0-25.1); HYALINE CASTS 4 /uL (0-3.1); PH,URINE 5.5 (5.0-8.0); URINE APPEARANCE CLEAR; URINE BACTERIA 180 /uL (0-1359); URINE BILIRUBIN NEGATIVE (NEGATIVE); URINE COLOR YELLOW; URINE GLUCOSE (UA) NEGATIVE (NEGATIVE); URINE KETONE NEGATIVE (NEGATIVE); URINE LEUK ESTERASE 3+ (NEGATIVE); URINE NITRITE NEGATIVE (NEGATIVE); URINE PROTEIN NEGATIVE (NEGATIVE); URINE RBC 14 /uL (0-23.9); URINE UROBILINOGEN 0.2 mg/dL (0.2-1.0); URINE WBC 546 /uL (0-25.8)
[2021-01-13] MEDS ORDERED: ERTAPENEM SODIUM 0.5 GM in SODIUM CHLORIDE 50 ML IVPB ONE (03:24)
[2021-01-13] MEDS ORDERED: ERTAPENEM SODIUM 1 GM VIAL ONE (03:33)
[2021-01-13] MEDS ORDERED: MEROPENEM 1 GM in DEXTROSE 5%-WATER 100 ML IVPB SCH ×2 (05:45→16:00)
[2021-01-13] MEDS ORDERED: LINEZOLID 600 MG PREMIX BAG 600 MG/300 ML BAG IVPB SCH ×2 (05:45→06:15)
[2021-01-13] MEDS: HEPARIN NA (PORCINE) 5,000 UNITS/ML 1ML VIAL SQ SCH ×3 (06:10→22:04)
[2021-01-13] MEDS ORDERED: HEPARIN NA (PORCINE) 5,000 UNITS/ML 1ML VIAL ONE (06:11)
[2021-01-13 08:17] LABS: BASO % 0.8 % (0-2.0); EOS % 6.1 % (0-4.5); HEMATOCRIT 30.3 % (32.4-45.2); LYMPH % 28.3 % (8-40); MEAN CELL VOLUME 81.8 fl (80-96); MEAN PLT VOLUME 9.5 fl (7.5-11.1); NEUT % 49.8 % (42.8-82.8); PLATELET COUNT 168 10^3/uL (134-434); RDW 13.1 % (11.6-15.6); WHITE BLOOD COUNT 4.3 K/mm3 (4.0-10.0)
[2021-01-13 08:44] LABS: BLOOD UREA NITROGEN 25.6 mg/dL (7-18); CALCIUM 8.4 mg/dL (8.5-10.1)
[2021-01-13 08:45] LABS: ALBUMIN 3.2 g/dl (3.4-5.0)
[2021-01-13 08:48] LABS: CREATININE 1.3 mg/dL (0.55-1.3); PHOSPHOROUS 2.9 mg/dL (2.5-4.9)
[2021-01-13 08:49] LABS: BILIRUBIN,TOTAL 0.5 mg/dL (0.2-1); TOT PROT 6.3 g/dl (6.4-8.2)
[2021-01-13 10:20] LABS: ANISOCYTOSIS 0; MACROCYTOSIS 0; PLATELET ESTIMATE NORMAL
[2021-01-13] MEDS: LACTOBACILLUS ACIDOPHILUS 1 TABLET PO SCH (10:40)
[2021-01-13] MEDS: ASPIRIN COATED 81 MG TABLET.EC PO SCH (10:40)
[2021-01-13] MEDS: amLODIPine BESYLATE 10 MG TABLET (FP) PO SCH (10:40)
[2021-01-13 11:21] VITALS: BMI 25.0
[2021-01-13] MEDS: INSULIN (LEVEMIR) 100 UNITS/ML UNITS SQ SCH ×2 (12:01→22:25)
[2021-01-13] MEDS: INSULIN SLIDING SCALE (NOVOLOG) 1 VIAL SQ SCH ×3 (12:01→22:05)
[2021-01-13] MEDS ORDERED: HALOPERIDOL LACTATE 5 MG/ML IM ONE (14:30)
[2021-01-13] MEDS: VANCOMYCIN 1 GRAM (PRE-DOCKED) 1,000 MG/250 ML BAG IVPB SCH (16:51)
[2021-01-13] MEDS: OLANZapine 5 MG TABLET PO SCH (22:05)
[2021-01-13] MEDS: ATORVASTATIN CA 40 MG TABLET (FP) PO SCH (22:05)
[2021-01-14] MEDS: HEPARIN NA (PORCINE) 5,000 UNITS/ML 1ML VIAL SQ SCH ×2 (05:13→21:59)
[2021-01-14] MEDS: INSULIN SLIDING SCALE (NOVOLOG) 1 VIAL SQ SCH ×3 (06:12→22:13)
[2021-01-14] MEDS: INSULIN (LEVEMIR) 100 UNITS/ML UNITS SQ SCH ×2 (06:12→22:00)
[2021-01-14 08:37] LABS: BASO % 0.8 % (0-2.0); EOS % 3.4 % (0-4.5); HEMATOCRIT 35.9 % (32.4-45.2); HEMOGLOBIN 11.5 GM/dL (10.7-15.3); LYMPH % 35.4 % (8-40); MEAN CELL VOLUME 84.3 fl (80-96); MEAN PLT VOLUME 9.3 fl (7.5-11.1); MONO % 11.8 % (3.8-10.2); NEUT % 48.6 % (42.8-82.8); PLATELET COUNT 194 10^3/uL (134-434); RBC 4.25 M/mm3 (3.60-5.2); RDW 13.4 % (11.6-15.6); WHITE BLOOD COUNT 6.9 K/mm3 (4.0-10.0)
[2021-01-14 08:59] LABS: ALBUMIN 3.7 g/dl (3.4-5.0); CALCIUM 9.4 mg/dL (8.5-10.1)
[2021-01-14] MEDS: LACTOBACILLUS ACIDOPHILUS 1 TABLET PO SCH ×2 (08:59→10:02)
[2021-01-14] MEDS: ASPIRIN COATED 81 MG TABLET.EC PO SCH (08:59)
[2021-01-14] MEDS: amLODIPine BESYLATE 10 MG TABLET (FP) PO SCH (08:59)
[2021-01-14 09:03] LABS: CREATININE 1.1 mg/dL (0.55-1.3)
[2021-01-14 09:04] LABS: BILIRUBIN,TOTAL 0.5 mg/dL (0.2-1); TOT PROT 7.1 g/dl (6.4-8.2)
[2021-01-14] MEDS ORDERED: PT OWN MED DRAWER 7, Y5N ONE (09:22)
[2021-01-14] MEDS: ERTAPENEM SODIUM 1 GM in SODIUM CHLORIDE 50 ML IVPB SCH (09:26)
[2021-01-14] MEDS: VANCOMYCIN 1 GRAM (PRE-DOCKED) 1,000 MG/250 ML BAG IVPB SCH (15:23)
[2021-01-14] MEDS: ATORVASTATIN CA 40 MG TABLET (FP) PO SCH (21:58)
[2021-01-14] MEDS: OLANZapine 5 MG TABLET PO SCH (21:58)
[2021-01-15] MEDS: INSULIN (LEVEMIR) 100 UNITS/ML UNITS SQ SCH ×2 (06:15→22:26)
[2021-01-15] MEDS: INSULIN SLIDING SCALE (NOVOLOG) 1 VIAL SQ SCH ×6 (06:15→21:50)
[2021-01-15] MEDS ORDERED: PT OWN MED DRAWER 7, Y5N ONE (09:30)
[2021-01-15] MEDS: LACTOBACILLUS ACIDOPHILUS 1 TABLET PO SCH (09:33)
[2021-01-15] MEDS: HEPARIN NA (PORCINE) 5,000 UNITS/ML 1ML VIAL SQ SCH ×2 (09:33→22:26)
[2021-01-15] MEDS: amLODIPine BESYLATE 10 MG TABLET (FP) PO SCH (09:33)
[2021-01-15] MEDS: ASPIRIN COATED 81 MG TABLET.EC PO SCH (09:34)
[2021-01-15] MEDS: ERTAPENEM SODIUM 1 GM in SODIUM CHLORIDE 50 ML IVPB SCH (09:34)
[2021-01-15] MEDS ORDERED: ONDANSETRON 4 MG/2 ML VIAL IVPB PRN (14:21)
[2021-01-15] MEDS ORDERED: MAG HYDROX/AL HYDROX/SIMETH 30 ML UNIT-DOSE CUP PO PRN (14:24)
[2021-01-15] MEDS: ATORVASTATIN CA 40 MG TABLET (FP) PO SCH (22:26)
[2021-01-15] MEDS: OLANZapine 5 MG TABLET PO SCH (22:26)
[2021-01-16] MEDS: INSULIN SLIDING SCALE (NOVOLOG) 1 VIAL SQ SCH ×5 (06:21→23:29)
[2021-01-16] MEDS: INSULIN (LEVEMIR) 100 UNITS/ML UNITS SQ SCH ×2 (06:22→23:20)
[2021-01-16 07:38] LABS: EOS % 8.3 % (0-4.5); HEMATOCRIT 31.8 % (32.4-45.2); HEMOGLOBIN 10.6 GM/dL (10.7-15.3); LYMPH % 47.1 % (8-40); MCHC 33.3 g/dl (32.0-36.0); MEAN CELL VOLUME 81.1 fl (80-96); MEAN PLT VOLUME 9.5 fl (7.5-11.1); MONO % 8.9 % (3.8-10.2); NEUT % 34.7 % (42.8-82.8); PLATELET COUNT 204 10^3/uL (134-434); RBC 3.92 M/mm3 (3.60-5.2); RDW 13.2 % (11.6-15.6)
[2021-01-16 08:01] LABS: CALCIUM 8.7 mg/dL (8.5-10.1)
[2021-01-16 08:02] LABS: BLOOD UREA NITROGEN 18.2 mg/dL (7-18)
[2021-01-16] MEDS: HEPARIN NA (PORCINE) 5,000 UNITS/ML 1ML VIAL SQ SCH ×2 (10:11→23:19)
[2021-01-16] MEDS: LACTOBACILLUS ACIDOPHILUS 1 TABLET PO SCH (10:12)
[2021-01-16] MEDS: ERTAPENEM SODIUM 1 GM in SODIUM CHLORIDE 50 ML IVPB SCH (10:12)
[2021-01-16] MEDS: ASPIRIN COATED 81 MG TABLET.EC PO SCH (10:12)
[2021-01-16] MEDS: amLODIPine BESYLATE 10 MG TABLET (FP) PO SCH (10:12)
[2021-01-16] MEDS ORDERED: INSULIN (NOVOLOG) ASPART 100 UNITS/ML 10ML VIAL ONE ×2 (11:26→21:03)
[2021-01-16] MEDS ORDERED: ONDANSETRON 4 MG TABLET PO ONE (15:00)
[2021-01-16] MEDS: ATORVASTATIN CA 40 MG TABLET (FP) PO SCH (23:20)
[2021-01-16] MEDS: OLANZapine 5 MG TABLET PO SCH (23:30)
[2021-01-17] MEDS ORDERED: HALOPERIDOL LACTATE 5 MG/ML IM ONE (03:15)
[2021-01-17] MEDS: INSULIN (LEVEMIR) 100 UNITS/ML UNITS SQ SCH ×2 (06:12→21:08)
[2021-01-17] MEDS: INSULIN SLIDING SCALE (NOVOLOG) 1 VIAL SQ SCH ×4 (06:14→21:11)
[2021-01-17 10:19] LABS: BASO % 0.8 % (0-2.0); EOS % 4.9 % (0-4.5); HEMATOCRIT 34.7 % (32.4-45.2); HEMOGLOBIN 11.2 GM/dL (10.7-15.3); LYMPH % 29.5 % (8-40); MCH 26.6 pg (25.7-33.7); MCHC 32.2 g/dl (32.0-36.0); MEAN CELL VOLUME 82.4 fl (80-96); MEAN PLT VOLUME 9.7 fl (7.5-11.1); MONO % 7.4 % (3.8-10.2); NEUT % 57.4 % (42.8-82.8); PLATELET COUNT 236 10^3/uL (134-434); RBC 4.21 M/mm3 (3.60-5.2); WHITE BLOOD COUNT 6.7 K/mm3 (4.0-10.0)
[2021-01-17 10:45] LABS: BLOOD UREA NITROGEN 12.6 mg/dL (7-18); CALCIUM 9.1 mg/dL (8.5-10.1)
[2021-01-17 10:46] LABS: ALBUMIN 3.3 g/dl (3.4-5.0); MAGNESIUM 2.4 mg/dL (1.8-2.4)
[2021-01-17 10:49] LABS: CREATININE 1.1 mg/dL (0.55-1.3); PHOSPHOROUS 3.3 mg/dL (2.5-4.9)
[2021-01-17 10:50] LABS: BILIRUBIN,TOTAL 0.3 mg/dL (0.2-1); TOT PROT 6.8 g/dl (6.4-8.2)
[2021-01-17] MEDS: HEPARIN NA (PORCINE) 5,000 UNITS/ML 1ML VIAL SQ SCH ×2 (11:00→21:08)
[2021-01-17] MEDS: ASPIRIN COATED 81 MG TABLET.EC PO SCH (11:00)
[2021-01-17] MEDS: LACTOBACILLUS ACIDOPHILUS 1 TABLET PO SCH (11:00)
[2021-01-17] MEDS: amLODIPine BESYLATE 10 MG TABLET (FP) PO SCH (11:00)
[2021-01-17] MEDS: ATORVASTATIN CA 40 MG TABLET (FP) PO SCH (21:09)
[2021-01-17] MEDS: OLANZapine 5 MG TABLET PO SCH (21:09)
[2021-01-18] MEDS: INSULIN SLIDING SCALE (NOVOLOG) 1 VIAL SQ SCH ×4 (06:38→21:14)
[2021-01-18] MEDS: INSULIN (LEVEMIR) 100 UNITS/ML UNITS SQ SCH ×2 (06:44→21:04)
[2021-01-18 08:52] LABS: EOS % 8.6 % (0-4.5); HEMATOCRIT 34.9 % (32.4-45.2); HEMOGLOBIN 11.3 GM/dL (10.7-15.3); LYMPH % 43.2 % (8-40); MCH 26.9 pg (25.7-33.7); MCHC 32.3 g/dl (32.0-36.0); MEAN CELL VOLUME 83.2 fl (80-96); MEAN PLT VOLUME 9.4 fl (7.5-11.1); MONO % 8.3 % (3.8-10.2); NEUT % 38.9 % (42.8-82.8); PLATELET COUNT 247 10^3/uL (134-434); RDW 13.1 % (11.6-15.6)
[2021-01-18 09:26] LABS: ALBUMIN 3.2 g/dl (3.4-5.0)
[2021-01-18 09:27] LABS: BLOOD UREA NITROGEN 16.8 mg/dL (7-18); CALCIUM 9.3 mg/dL (8.5-10.1); MAGNESIUM 2.4 mg/dL (1.8-2.4)
[2021-01-18 09:30] LABS: CREATININE 0.9 mg/dL (0.55-1.3); PHOSPHOROUS 3.8 mg/dL (2.5-4.9)
[2021-01-18 09:31] LABS: BILIRUBIN,TOTAL 0.4 mg/dL (0.2-1); TOT PROT 6.7 g/dl (6.4-8.2)
[2021-01-18] MEDS: amLODIPine BESYLATE 10 MG TABLET (FP) PO SCH (09:53)
[2021-01-18] MEDS: LACTOBACILLUS ACIDOPHILUS 1 TABLET PO SCH (09:53)
[2021-01-18] MEDS: ASPIRIN COATED 81 MG TABLET.EC PO SCH (09:53)
[2021-01-18] MEDS: HEPARIN NA (PORCINE) 5,000 UNITS/ML 1ML VIAL SQ SCH ×2 (09:53→21:04)
[2021-01-18] MEDS ORDERED: PT OWN MED DRAWER 7, Y5N ONE (21:01)
[2021-01-18] MEDS: ATORVASTATIN CA 40 MG TABLET (FP) PO SCH (21:04)
[2021-01-18] MEDS: OLANZapine 5 MG TABLET PO SCH (21:04)
[2021-01-19] MEDS: INSULIN (LEVEMIR) 100 UNITS/ML UNITS SQ SCH (07:23)
[2021-01-19] MEDS: INSULIN SLIDING SCALE (NOVOLOG) 1 VIAL SQ SCH ×2 (07:23→11:20)
[2021-01-19] MEDS: HEPARIN NA (PORCINE) 5,000 UNITS/ML 1ML VIAL SQ SCH (09:51)
[2021-01-19] MEDS: LACTOBACILLUS ACIDOPHILUS 1 TABLET PO SCH (09:51)
[2021-01-19] MEDS: ASPIRIN COATED 81 MG TABLET.EC PO SCH (09:51)
[2021-01-19] MEDS: amLODIPine BESYLATE 10 MG TABLET (FP) PO SCH (09:51)
[2021-01-19 14:44] VITALS: BP 120/70; PULSE 72; TEMP 98.1
== END 2021-01-19 16:40 | DRG 689 ==
LOC: JER 19:57 → JERBED 01-13 03:45 → J6S 01-13 09:18
PROVIDERS: ADMIT Internal Medicine; ATTEND Internal Medicine
DX: N39.0 Urinary tract infection, site not specified (principal); G93.41 Metabolic encephalopathy; N17.9 Acute kidney failure, unspecified; K61.0 Anal abscess; F03.90 Unspecified dementia, unspecified severity, without behavioral disturbance, psychotic disturbance, mood disturbance, and anxiety; E11.9 Type 2 diabetes mellitus without complications; F41.9 Anxiety disorder, unspecified; Z79.4 Long term (current) use of insulin
CPT/HCPCS: 36415; 71045-TC-FY; 74176-TC; 80048; 80053; 81003; 82550; 82962; 83605; 83690; 83735; 84100; 84484; 85025; 87040; 87086; 93005; 93010; 97116-GP; 97162-GP; 99285-25; C9803; J1644; U0003; U0005

== ENCOUNTER 2021-01-29 13:12 | Emergency (ER) | payer OTHER, BC ==
[2021-01-29 13:28] VITALS: BMI 24.1
[2021-01-29] MEDS ORDERED: HALOPERIDOL LACTATE 5 MG/ML IM ONE (13:59)
[2021-01-29] MEDS ORDERED: HALOPERIDOL LACTATE 5 MG/ML ONE (14:04)
[2021-01-29 15:10] LABS: BASO % 0.9 % (0-2.0); EOS % 4.3 % (0-4.5); HEMOGLOBIN 10.1 GM/dL (10.7-15.3); LYMPH % 29.9 % (8-40); MCH 26.5 pg (25.7-33.7); MCHC 32.7 g/dl (32.0-36.0); MEAN CELL VOLUME 81.2 fl (80-96); MEAN PLT VOLUME 9.2 fl (7.5-11.1); MONO % 9.3 % (3.8-10.2); NEUT % 55.6 % (42.8-82.8); PLATELET COUNT 265 10^3/uL (134-434); RBC 3.82 M/mm3 (3.60-5.2); WHITE BLOOD COUNT 6.9 K/mm3 (4.0-10.0)
[2021-01-29 15:13] LABS: PH,URINE 6.5 (5.0-8.0); URINE APPEARANCE CLEAR; URINE BILIRUBIN NEGATIVE (NEGATIVE); URINE COLOR YELLOW; URINE GLUCOSE (UA) NEGATIVE (NEGATIVE); URINE KETONE NEGATIVE (NEGATIVE); URINE LEUK ESTERASE NEGATIVE (NEGATIVE); URINE NITRITE NEGATIVE (NEGATIVE); URINE PROTEIN NEGATIVE (NEGATIVE); URINE UROBILINOGEN 0.2 mg/dL (0.2-1.0)
[2021-01-29 15:19] LABS: CALCIUM 8.9 mg/dL (8.5-10.1)
[2021-01-29 15:20] LABS: ALBUMIN 3.2 g/dl (3.4-5.0)
[2021-01-29 15:22] LABS: CREATININE 1.1 mg/dL (0.55-1.3)
[2021-01-29 15:23] LABS: BILIRUBIN,TOTAL 0.3 mg/dL (0.2-1)
[2021-01-29 23:18] VITALS: BP 169/56; PULSE 75; TEMP 98.2
== END 2021-01-30 00:15 | disposition home or self-care (01) ==
LOC: JER 13:12
PROC: 3E023GC Introduction of Other Therapeutic Substance into Muscle, Percutaneous Approach (ICD-10-PCS; principal; 2021-01-29)
DX: K80.80 Other cholelithiasis without obstruction (principal); F03.90 Unspecified dementia, unspecified severity, without behavioral disturbance, psychotic disturbance, mood disturbance, and anxiety
CPT/HCPCS: 36415; 71045-TC-FY; 76705-TC; 80053; 81003; 82550; 83690; 84484; 85025; 87086; 93005; 93010; 99285-25

== ENCOUNTER 2021-02-12 13:39 | Inpatient (IN) | payer OTHER, BC ==
[2021-02-12] MEDS ORDERED: HALOPERIDOL LACTATE 5 MG/ML IM ONE (13:52)
[2021-02-12] MEDS ORDERED: HALOPERIDOL LACTATE 5 MG/ML ONE (14:01)
[2021-02-12] MEDS ORDERED: LORazepam 2 MG TABLET PO ONE (15:14)
[2021-02-12] MEDS ORDERED: LORazepam 2 MG/ML SDV VIAL IVPB ONE (15:46)
[2021-02-12 16:22] LABS: EPI CELLS 2 /uL (0-25.1); HYALINE CASTS 0 /uL (0-3.1); URINE APPEARANCE CLEAR; URINE BACTERIA 6406 /uL (0-1359); URINE BILIRUBIN NEGATIVE (NEGATIVE); URINE COLOR YELLOW; URINE GLUCOSE (UA) NEGATIVE (NEGATIVE); URINE KETONE NEGATIVE (NEGATIVE); URINE LEUK ESTERASE TRACE (NEGATIVE); URINE NITRITE NEGATIVE (NEGATIVE); URINE PROTEIN NEGATIVE (NEGATIVE); URINE RBC 1 /uL (0-23.9); URINE UROBILINOGEN 0.2 mg/dL (0.2-1.0); URINE WBC 26 /uL (0-25.8)
[2021-02-12 16:32] LABS: BASO % 0.6 % (0-2.0); EOS % 6.1 % (0-4.5); HEMATOCRIT 30.5 % (32.4-45.2); HEMOGLOBIN 10.3 GM/dL (10.7-15.3); MCH 27.2 pg (25.7-33.7); MCHC 33.8 g/dl (32.0-36.0); MEAN CELL VOLUME 80.4 fl (80-96); MEAN PLT VOLUME 8.7 fl (7.5-11.1); MONO % 7.8 % (3.8-10.2); NEUT % 56.5 % (42.8-82.8); PLATELET COUNT 220 10^3/uL (134-434); RBC 3.79 M/mm3 (3.60-5.2); RDW 13.5 % (11.6-15.6); WHITE BLOOD COUNT 7.1 K/mm3 (4.0-10.0)
[2021-02-12] MEDS ORDERED: CEFTRIAXONE 1,000 MG in DEXTROSE 5%-WATER - 50 ML IVPB ONE (16:36)
[2021-02-12] MEDS ORDERED: ERTAPENEM SODIUM 1 GM in SODIUM CHLORIDE 50 ML IVPB ONE (16:53)
[2021-02-12 16:55] LABS: ALBUMIN 3.7 g/dl (3.4-5.0); BLOOD UREA NITROGEN 15.4 mg/dL (7-18); CALCIUM 9.1 mg/dL (8.5-10.1)
[2021-02-12 16:58] LABS: CREATININE 0.9 mg/dL (0.55-1.3)
[2021-02-12 17:00] LABS: BILIRUBIN,TOTAL 0.3 mg/dL (0.2-1); TOT PROT 7.3 g/dl (6.4-8.2)
[2021-02-12] MEDS ORDERED: LORazepam 2 MG/ML SDV VIAL ONE (17:33)
[2021-02-12] MEDS ORDERED: ERTAPENEM SODIUM 1 GM VIAL ONE (17:38)
[2021-02-12] MEDS ORDERED: CEFTRIAXONE 1 GM/50 ML BAG ONE (17:38)
[2021-02-12] MEDS ORDERED: CEFTRIAXONE 1 GM in DEXTROSE 5%-WATER - 50 ML IVPB SCH (18:00)
[2021-02-12] MEDS ORDERED: LABETALOL HCL 5 MG/1 ML (100MG/20 ML VIAL) IVPUSH ONE (20:06)
[2021-02-12] MEDS ORDERED: LOSARTAN POTASSIUM 25 MG TABLET PO ONE (20:49)
[2021-02-12] MEDS: INSULIN (LEVEMIR) 100 UNITS/ML UNITS SQ SCH (22:00)
[2021-02-12] MEDS: ZINC SULFATE 220 MG CAPSULE (FP) PO SCH (22:19)
[2021-02-12] MEDS: DOCUSATE SODIUM 100 MG CAPSULE (FP) PO SCH (22:19)
[2021-02-12] MEDS: ATORVASTATIN CA 40 MG TABLET (FP) PO SCH (22:53)
[2021-02-12] MEDS ORDERED: MELATONIN 5 MG TABLETS PO ONE (23:53)
[2021-02-13] MEDS: INSULIN SLIDING SCALE (NOVOLOG) 1 VIAL SQ SCH ×3 (07:49→18:54)
[2021-02-13] MEDS: ESCITALOPRAM OXALATE 10 MG TABLET PO SCH (09:55)
[2021-02-13] MEDS: ASPIRIN COATED 81 MG TABLET.EC PO SCH (09:55)
[2021-02-13] MEDS: DOCUSATE SODIUM 100 MG CAPSULE (FP) PO SCH ×2 (09:55→22:18)
[2021-02-13] MEDS: LOSARTAN POTASSIUM 25 MG TABLET PO SCH (09:55)
[2021-02-13] MEDS: ENOXAPARIN NA (PORCINE) 40 MG/0.4 ML DISP.SYRIN SQ SCH (09:55)
[2021-02-13] MEDS: ZINC SULFATE 220 MG CAPSULE (FP) PO SCH ×2 (09:56→22:06)
[2021-02-13] MEDS: amLODIPine BESYLATE 10 MG TABLET (FP) PO SCH (09:56)
[2021-02-13] MEDS ORDERED: CEFTRIAXONE 1 GM in DEXTROSE 5%-WATER - 50 ML IVPB SCH (10:00)
[2021-02-13] MEDS ORDERED: SODIUM CHLORIDE 1,000 ML IV SCH (10:45)
[2021-02-13 11:28] LABS: BASO % 0.7 % (0-2.0); EOS % 4.4 % (0-4.5); HEMATOCRIT 33.4 % (32.4-45.2); HEMOGLOBIN 11.3 GM/dL (10.7-15.3); LYMPH % 26.6 % (8-40); MCH 27.4 pg (25.7-33.7); MCHC 33.8 g/dl (32.0-36.0); MEAN CELL VOLUME 81.1 fl (80-96); MEAN PLT VOLUME 8.6 fl (7.5-11.1); MONO % 7.9 % (3.8-10.2); NEUT % 60.4 % (42.8-82.8); PLATELET COUNT 276 10^3/uL (134-434); RBC 4.12 M/mm3 (3.60-5.2); RDW 13.6 % (11.6-15.6); WHITE BLOOD COUNT 7.8 K/mm3 (4.0-10.0)
[2021-02-13 11:55] LABS: CALCIUM 9.3 mg/dL (8.5-10.1)
[2021-02-13 11:56] LABS: ALBUMIN 3.5 g/dl (3.4-5.0); BLOOD UREA NITROGEN 14.1 mg/dL (7-18)
[2021-02-13 11:59] LABS: CREATININE 1.1 mg/dL (0.55-1.3); PHOSPHOROUS 3.7 mg/dL (2.5-4.9)
[2021-02-13 12:00] LABS: BILIRUBIN,TOTAL 0.4 mg/dL (0.2-1); TOT PROT 7.2 g/dl (6.4-8.2)
[2021-02-13 16:17] VITALS: BMI 23.0
[2021-02-13] MEDS ORDERED: PT OWN MED DRAWER 7, Y5N ONE (17:27)
[2021-02-13] MEDS: ERTAPENEM SODIUM 1 GM in SODIUM CHLORIDE 50 ML IVPB SCH (18:32)
[2021-02-13] MEDS: POLYETHYLENE GLYCOL (HEALTHYLAX) 3350 17 GM PACKET PO SCH (22:06)
[2021-02-13] MEDS: ATORVASTATIN CA 40 MG TABLET (FP) PO SCH (22:07)
[2021-02-13] MEDS: INSULIN (LEVEMIR) 100 UNITS/ML UNITS SQ SCH (22:07)
[2021-02-14] MEDS: POLYETHYLENE GLYCOL (HEALTHYLAX) 3350 17 GM PACKET PO SCH ×3 (06:04→22:17)
[2021-02-14] MEDS: INSULIN (LEVEMIR) 100 UNITS/ML UNITS SQ SCH ×2 (06:04→22:17)
[2021-02-14] MEDS: INSULIN SLIDING SCALE (NOVOLOG) 1 VIAL SQ SCH ×3 (06:05→16:54)
[2021-02-14 09:25] LABS: BASO % 0.7 % (0-2.0); EOS % 5.7 % (0-4.5); HEMATOCRIT 30.5 % (32.4-45.2); HEMOGLOBIN 10.4 GM/dL (10.7-15.3); LYMPH % 29.2 % (8-40); MCH 27.2 pg (25.7-33.7); MCHC 34.1 g/dl (32.0-36.0); MEAN CELL VOLUME 79.9 fl (80-96); MEAN PLT VOLUME 8.5 fl (7.5-11.1); MONO % 8.7 % (3.8-10.2); NEUT % 55.7 % (42.8-82.8); PLATELET COUNT 239 10^3/uL (134-434); RBC 3.81 M/mm3 (3.60-5.2); RDW 13.3 % (11.6-15.6); WHITE BLOOD COUNT 6.3 K/mm3 (4.0-10.0)
[2021-02-14 10:02] LABS: ALBUMIN 3.2 g/dl (3.4-5.0); BLOOD UREA NITROGEN 11.2 mg/dL (7-18); CALCIUM 8.9 mg/dL (8.5-10.1)
[2021-02-14 10:05] LABS: CREATININE 0.9 mg/dL (0.55-1.3); PHOSPHOROUS 3.6 mg/dL (2.5-4.9)
[2021-02-14 10:06] LABS: TOT PROT 6.8 g/dl (6.4-8.2)
[2021-02-14 10:09] LABS: BILIRUBIN,TOTAL 0.4 mg/dL (0.2-1)
[2021-02-14] MEDS: ESCITALOPRAM OXALATE 10 MG TABLET PO SCH (10:32)
[2021-02-14] MEDS: ASPIRIN COATED 81 MG TABLET.EC PO SCH (10:32)
[2021-02-14] MEDS: LOSARTAN POTASSIUM 25 MG TABLET PO SCH (10:32)
[2021-02-14] MEDS: ZINC SULFATE 220 MG CAPSULE (FP) PO SCH ×2 (10:32→22:17)
[2021-02-14] MEDS: amLODIPine BESYLATE 10 MG TABLET (FP) PO SCH (10:32)
[2021-02-14] MEDS: DOCUSATE NA 100 MG/10 ML UNIT-DOSE CUPS PO SCH ×2 (10:33→22:17)
[2021-02-14] MEDS: ENOXAPARIN NA (PORCINE) 40 MG/0.4 ML DISP.SYRIN SQ SCH (10:33)
[2021-02-14] MEDS ORDERED: SODIUM CHLORIDE 1,000 ML IV SCH (11:57)
[2021-02-14] MEDS ORDERED: PT OWN MED DRAWER 7, Y5N ONE (17:05)
[2021-02-14] MEDS: ERTAPENEM SODIUM 1 GM in SODIUM CHLORIDE 50 ML IVPB SCH (17:11)
[2021-02-14] MEDS: ATORVASTATIN CA 40 MG TABLET (FP) PO SCH (22:17)
[2021-02-15] MEDS: INSULIN (LEVEMIR) 100 UNITS/ML UNITS SQ SCH ×2 (06:50→21:39)
[2021-02-15] MEDS: INSULIN SLIDING SCALE (NOVOLOG) 1 VIAL SQ SCH ×3 (06:52→16:42)
[2021-02-15] MEDS: POLYETHYLENE GLYCOL (HEALTHYLAX) 3350 17 GM PACKET PO SCH ×3 (06:52→21:38)
[2021-02-15] MEDS ORDERED: PT OWN MED DRAWER 7, Y5N ONE ×2 (11:13→16:26)
[2021-02-15] MEDS: LOSARTAN POTASSIUM 25 MG TABLET PO SCH (11:18)
[2021-02-15] MEDS: ESCITALOPRAM OXALATE 10 MG TABLET PO SCH (11:18)
[2021-02-15] MEDS: ASPIRIN COATED 81 MG TABLET.EC PO SCH (11:18)
[2021-02-15] MEDS: DOCUSATE NA 100 MG/10 ML UNIT-DOSE CUPS PO SCH ×2 (11:18→21:38)
[2021-02-15] MEDS: amLODIPine BESYLATE 10 MG TABLET (FP) PO SCH (11:20)
[2021-02-15] MEDS: ZINC SULFATE 220 MG CAPSULE (FP) PO SCH ×2 (11:20→21:38)
[2021-02-15] MEDS: ENOXAPARIN NA (PORCINE) 40 MG/0.4 ML DISP.SYRIN SQ SCH (11:20)
[2021-02-15] MEDS: ACETAMINOPHEN 325 MG TABLET (FP) PO PRN (13:10)
[2021-02-15] MEDS: ERTAPENEM SODIUM 1 GM in SODIUM CHLORIDE 50 ML IVPB SCH (16:29)
[2021-02-15] MEDS: ATORVASTATIN CA 40 MG TABLET (FP) PO SCH (21:38)
[2021-02-16] MEDS ORDERED: PT OWN MED DRAWER 7, Y5N ONE ×4 (06:43→21:26)
[2021-02-16] MEDS: POLYETHYLENE GLYCOL (HEALTHYLAX) 3350 17 GM PACKET PO SCH ×2 (06:45→14:36)
[2021-02-16] MEDS: INSULIN SLIDING SCALE (NOVOLOG) 1 VIAL SQ SCH ×3 (06:49→17:16)
[2021-02-16] MEDS: INSULIN (LEVEMIR) 100 UNITS/ML UNITS SQ SCH ×2 (06:50→21:30)
[2021-02-16] MEDS: levoFLOXacin 750 MG TABLET PO SCH ×2 (06:55→18:44)
[2021-02-16 09:53] LABS: BASO % 0.7 % (0-2.0); EOS % 5.4 % (0-4.5); HEMATOCRIT 33.3 % (32.4-45.2); HEMOGLOBIN 11.2 GM/dL (10.7-15.3); LYMPH % 30.4 % (8-40); MCHC 33.5 g/dl (32.0-36.0); MEAN CELL VOLUME 80.6 fl (80-96); MEAN PLT VOLUME 8.3 fl (7.5-11.1); MONO % 9.2 % (3.8-10.2); NEUT % 54.3 % (42.8-82.8); PLATELET COUNT 265 10^3/uL (134-434); RBC 4.13 M/mm3 (3.60-5.2); RDW 13.1 % (11.6-15.6); WHITE BLOOD COUNT 6.5 K/mm3 (4.0-10.0)
[2021-02-16 10:16] LABS: ALBUMIN 3.2 g/dl (3.4-5.0); BLOOD UREA NITROGEN 11.4 mg/dL (7-18); CALCIUM 8.6 mg/dL (8.5-10.1); MAGNESIUM 1.8 mg/dL (1.8-2.4)
[2021-02-16 10:19] LABS: BILIRUBIN,TOTAL 0.4 mg/dL (0.2-1); CREATININE 0.9 mg/dL (0.55-1.3); PHOSPHOROUS 3.9 mg/dL (2.5-4.9); TOT PROT 6.9 g/dl (6.4-8.2)
[2021-02-16] MEDS: ESCITALOPRAM OXALATE 10 MG TABLET PO SCH (10:19)
[2021-02-16] MEDS: ASPIRIN COATED 81 MG TABLET.EC PO SCH (10:19)
[2021-02-16] MEDS: ZINC SULFATE 220 MG CAPSULE (FP) PO SCH ×2 (10:19→21:30)
[2021-02-16] MEDS: LOSARTAN POTASSIUM 25 MG TABLET PO SCH (10:21)
[2021-02-16] MEDS: ENOXAPARIN NA (PORCINE) 40 MG/0.4 ML DISP.SYRIN SQ SCH (10:21)
[2021-02-16] MEDS: amLODIPine BESYLATE 10 MG TABLET (FP) PO SCH (10:21)
[2021-02-16] MEDS: metroNIDAZOLE 250 MG TABLET PO SCH ×2 (10:21→21:30)
[2021-02-16] MEDS: DOCUSATE NA 100 MG/10 ML UNIT-DOSE CUPS PO SCH ×2 (10:22→21:29)
[2021-02-16] MEDS: ACETAMINOPHEN 325 MG TABLET (FP) PO PRN (14:51)
[2021-02-16] MEDS: MINERAL OIL/PET HY-PHL TOPICAL OINTMENT 454 GM JAR TP SCH (17:30)
[2021-02-16] MEDS ORDERED: TAMSULOSIN HCL 0.4 MG CAP PO ONE (18:00)
[2021-02-16] MEDS: ATORVASTATIN CA 40 MG TABLET (FP) PO SCH (21:30)
[2021-02-17] MEDS ORDERED: PT OWN MED DRAWER 7, Y5N ONE ×3 (05:53→11:11)
[2021-02-17] MEDS: INSULIN (LEVEMIR) 100 UNITS/ML UNITS SQ SCH ×2 (06:32→22:46)
[2021-02-17] MEDS: INSULIN SLIDING SCALE (NOVOLOG) 1 VIAL SQ SCH ×3 (06:32→17:28)
[2021-02-17] MEDS: levoFLOXacin 750 MG TABLET PO SCH ×2 (06:32→09:18)
[2021-02-17] MEDS: metroNIDAZOLE 250 MG TABLET PO SCH ×2 (09:14→22:46)
[2021-02-17] MEDS: ZINC SULFATE 220 MG CAPSULE (FP) PO SCH ×2 (09:14→22:45)
[2021-02-17] MEDS: TAMSULOSIN HCL 0.4 MG CAP PO SCH (09:14)
[2021-02-17] MEDS: POLYETHYLENE GLYCOL (HEALTHYLAX) 3350 17 GM PACKET PO SCH (09:15)
[2021-02-17] MEDS: LOSARTAN POTASSIUM 25 MG TABLET PO SCH (09:15)
[2021-02-17] MEDS: ASPIRIN COATED 81 MG TABLET.EC PO SCH (09:15)
[2021-02-17] MEDS: ESCITALOPRAM OXALATE 10 MG TABLET PO SCH (09:15)
[2021-02-17] MEDS: amLODIPine BESYLATE 10 MG TABLET (FP) PO SCH (09:15)
[2021-02-17] MEDS: DOCUSATE NA 100 MG/10 ML UNIT-DOSE CUPS PO SCH ×2 (09:15→22:46)
[2021-02-17] MEDS: MINERAL OIL/PET HY-PHL TOPICAL OINTMENT 454 GM JAR TP SCH (09:16)
[2021-02-17] MEDS: ENOXAPARIN NA (PORCINE) 40 MG/0.4 ML DISP.SYRIN SQ SCH (09:16)
[2021-02-17 09:35] LABS: BASO % 0.8 % (0-2.0); EOS % 5.3 % (0-4.5); HEMATOCRIT 31.4 % (32.4-45.2); HEMOGLOBIN 10.7 GM/dL (10.7-15.3); LYMPH % 29.4 % (8-40); MCH 27.4 pg (25.7-33.7); MCHC 34.2 g/dl (32.0-36.0); MEAN CELL VOLUME 80.3 fl (80-96); MEAN PLT VOLUME 8.2 fl (7.5-11.1); MONO % 8.8 % (3.8-10.2); NEUT % 55.7 % (42.8-82.8); PLATELET COUNT 253 10^3/uL (134-434); RBC 3.91 M/mm3 (3.60-5.2); RDW 13.3 % (11.6-15.6); WHITE BLOOD COUNT 7.4 K/mm3 (4.0-10.0)
[2021-02-17] MEDS ORDERED: MINERAL OIL/PET HY-PHL TOPICAL OINTMENT 454 GM JAR TP SCH (10:00)
[2021-02-17 10:07] LABS: ALBUMIN 2.9 g/dl (3.4-5.0); BLOOD UREA NITROGEN 14.7 mg/dL (7-18)
[2021-02-17 10:08] LABS: CALCIUM 8.8 mg/dL (8.5-10.1); MAGNESIUM 1.9 mg/dL (1.8-2.4); TOT PROT 6.3 g/dl (6.4-8.2)
[2021-02-17 10:09] LABS: PHOSPHOROUS 3.7 mg/dL (2.5-4.9)
[2021-02-17 10:22] LABS: BILIRUBIN,TOTAL 0.4 mg/dL (0.2-1)
[2021-02-17] MEDS ORDERED: INSULIN (NOVOLOG) ASPART 100 UNITS/ML 10ML VIAL ONE (11:36)
[2021-02-17] MEDS ORDERED: QUEtiapine FUMARATE 25 MG TABLET PO ONE (14:21)
[2021-02-17] MEDS: MAG HYDROX/AL HYDROX/SIMETH 30 ML UNIT-DOSE CUP PO PRN (18:49)
[2021-02-17] MEDS: QUEtiapine FUMARATE 25 MG TABLET PO SCH (22:46)
[2021-02-17] MEDS: ATORVASTATIN CA 40 MG TABLET (FP) PO SCH (22:46)
[2021-02-18] MEDS: INSULIN (LEVEMIR) 100 UNITS/ML UNITS SQ SCH ×2 (06:51→22:04)
[2021-02-18] MEDS: levoFLOXacin 750 MG TABLET PO SCH (06:52)
[2021-02-18] MEDS: INSULIN SLIDING SCALE (NOVOLOG) 1 VIAL SQ SCH ×3 (06:54→17:00)
[2021-02-18] MEDS ORDERED: PT OWN MED DRAWER 7, Y5N ONE ×2 (07:36→12:07)
[2021-02-18 08:40] LABS: BASO % 0.4 % (0-2.0); EOS % 3.5 % (0-4.5); HEMATOCRIT 29.3 % (32.4-45.2); HEMOGLOBIN 9.9 GM/dL (10.7-15.3); LYMPH % 26.9 % (8-40); MCH 27.2 pg (25.7-33.7); MCHC 33.9 g/dl (32.0-36.0); MEAN CELL VOLUME 80.2 fl (80-96); MEAN PLT VOLUME 8.7 fl (7.5-11.1); MONO % 11.5 % (3.8-10.2); NEUT % 57.7 % (42.8-82.8); PLATELET COUNT 194 10^3/uL (134-434); RBC 3.65 M/mm3 (3.60-5.2); RDW 13.6 % (11.6-15.6); WHITE BLOOD COUNT 8.2 K/mm3 (4.0-10.0)
[2021-02-18 09:02] LABS: ALBUMIN 2.9 g/dl (3.4-5.0); CALCIUM 8.6 mg/dL (8.5-10.1)
[2021-02-18 09:03] LABS: BLOOD UREA NITROGEN 22.9 mg/dL (7-18); MAGNESIUM 2.1 mg/dL (1.8-2.4)
[2021-02-18 09:06] LABS: CREATININE 1.3 mg/dL (0.55-1.3); PHOSPHOROUS 3.7 mg/dL (2.5-4.9)
[2021-02-18 09:07] LABS: BILIRUBIN,TOTAL 0.4 mg/dL (0.2-1); TOT PROT 6.1 g/dl (6.4-8.2)
[2021-02-18] MEDS: DOCUSATE NA 100 MG/10 ML UNIT-DOSE CUPS PO SCH ×3 (09:39→22:18)
[2021-02-18] MEDS: TAMSULOSIN HCL 0.4 MG CAP PO SCH (09:39)
[2021-02-18] MEDS: POLYETHYLENE GLYCOL (HEALTHYLAX) 3350 17 GM PACKET PO SCH (09:39)
[2021-02-18] MEDS: ZINC SULFATE 220 MG CAPSULE (FP) PO SCH ×2 (09:39→22:04)
[2021-02-18] MEDS: ENOXAPARIN NA (PORCINE) 40 MG/0.4 ML DISP.SYRIN SQ SCH (09:39)
[2021-02-18] MEDS: metroNIDAZOLE 250 MG TABLET PO SCH ×2 (09:40→22:03)
[2021-02-18] MEDS: ASPIRIN COATED 81 MG TABLET.EC PO SCH (09:40)
[2021-02-18] MEDS: LOSARTAN POTASSIUM 25 MG TABLET PO SCH (09:40)
[2021-02-18] MEDS: ESCITALOPRAM OXALATE 10 MG TABLET PO SCH (09:40)
[2021-02-18] MEDS: amLODIPine BESYLATE 10 MG TABLET (FP) PO SCH (09:40)
[2021-02-18] MEDS: ACETAMINOPHEN 325 MG TABLET (FP) PO PRN (09:42)
[2021-02-18] MEDS: MINERAL OIL/PET HY-PHL TOPICAL OINTMENT 454 GM JAR TP SCH (10:03)
[2021-02-18] MEDS: MAG HYDROX/AL HYDROX/SIMETH 30 ML UNIT-DOSE CUP PO PRN (12:50)
[2021-02-18] MEDS: ATORVASTATIN CA 40 MG TABLET (FP) PO SCH (22:03)
[2021-02-18] MEDS: QUEtiapine FUMARATE 25 MG TABLET PO SCH (22:03)
[2021-02-19] MEDS: levoFLOXacin 750 MG TABLET PO SCH (06:01)
[2021-02-19] MEDS: INSULIN (LEVEMIR) 100 UNITS/ML UNITS SQ SCH ×2 (06:02→21:43)
[2021-02-19] MEDS: INSULIN SLIDING SCALE (NOVOLOG) 1 VIAL SQ SCH ×3 (06:02→17:34)
[2021-02-19 09:33] LABS: BASO % 0.9 % (0-2.0); EOS % 6.1 % (0-4.5); HEMATOCRIT 28.2 % (32.4-45.2); HEMOGLOBIN 9.5 GM/dL (10.7-15.3); LYMPH % 30.1 % (8-40); MCHC 33.5 g/dl (32.0-36.0); MEAN CELL VOLUME 80.7 fl (80-96); MEAN PLT VOLUME 8.8 fl (7.5-11.1); MONO % 10.3 % (3.8-10.2); NEUT % 52.6 % (42.8-82.8); PLATELET COUNT 187 10^3/uL (134-434); RDW 13.5 % (11.6-15.6); WHITE BLOOD COUNT 6.8 K/mm3 (4.0-10.0)
[2021-02-19 09:52] LABS: CALCIUM 8.6 mg/dL (8.5-10.1)
[2021-02-19 09:54] LABS: ALBUMIN 2.9 g/dl (3.4-5.0); BLOOD UREA NITROGEN 27.8 mg/dL (7-18); MAGNESIUM 2.2 mg/dL (1.8-2.4)
[2021-02-19 09:57] LABS: BILIRUBIN,TOTAL 0.3 mg/dL (0.2-1); CREATININE 1.3 mg/dL (0.55-1.3); PHOSPHOROUS 3.9 mg/dL (2.5-4.9)
[2021-02-19 09:59] LABS: TOT PROT 6.2 g/dl (6.4-8.2)
[2021-02-19] MEDS: ASPIRIN COATED 81 MG TABLET.EC PO SCH (10:25)
[2021-02-19] MEDS: ZINC SULFATE 220 MG CAPSULE (FP) PO SCH ×2 (10:25→21:54)
[2021-02-19] MEDS: ESCITALOPRAM OXALATE 10 MG TABLET PO SCH (10:26)
[2021-02-19] MEDS: LOSARTAN POTASSIUM 25 MG TABLET PO SCH (10:26)
[2021-02-19] MEDS: MINERAL OIL/PET HY-PHL TOPICAL OINTMENT 454 GM JAR TP SCH (10:28)
[2021-02-19] MEDS: amLODIPine BESYLATE 10 MG TABLET (FP) PO SCH (10:28)
[2021-02-19] MEDS: metroNIDAZOLE 250 MG TABLET PO SCH ×2 (10:28→21:53)
[2021-02-19] MEDS: DOCUSATE NA 100 MG/10 ML UNIT-DOSE CUPS PO SCH ×2 (10:29→21:53)
[2021-02-19] MEDS: ENOXAPARIN NA (PORCINE) 40 MG/0.4 ML DISP.SYRIN SQ SCH (10:29)
[2021-02-19] MEDS: POLYETHYLENE GLYCOL (HEALTHYLAX) 3350 17 GM PACKET PO SCH (10:29)
[2021-02-19] MEDS: TAMSULOSIN HCL 0.4 MG CAP PO SCH (10:33)
[2021-02-19] MEDS: QUEtiapine FUMARATE 25 MG TABLET PO SCH ×2 (10:55→21:54)
[2021-02-19] MEDS: ATORVASTATIN CA 40 MG TABLET (FP) PO SCH (21:53)
[2021-02-19] MEDS ORDERED: QUEtiapine FUMARATE 25 MG TABLET PO ONE (22:07)
[2021-02-20] MEDS: INSULIN SLIDING SCALE (NOVOLOG) 1 VIAL SQ SCH ×3 (06:07→16:34)
[2021-02-20] MEDS: INSULIN (LEVEMIR) 100 UNITS/ML UNITS SQ SCH ×2 (06:07→21:09)
[2021-02-20] MEDS: amLODIPine BESYLATE 10 MG TABLET (FP) PO SCH (10:56)
[2021-02-20] MEDS: ASPIRIN COATED 81 MG TABLET.EC PO SCH (10:56)
[2021-02-20] MEDS: ESCITALOPRAM OXALATE 10 MG TABLET PO SCH (10:57)
[2021-02-20] MEDS: LOSARTAN POTASSIUM 25 MG TABLET PO SCH (10:58)
[2021-02-20] MEDS: QUEtiapine FUMARATE 25 MG TABLET PO SCH ×2 (10:59→21:09)
[2021-02-20] MEDS: ZINC SULFATE 220 MG CAPSULE (FP) PO SCH ×2 (10:59→21:09)
[2021-02-20] MEDS: TAMSULOSIN HCL 0.4 MG CAP PO SCH (10:59)
[2021-02-20] MEDS: MINERAL OIL/PET HY-PHL TOPICAL OINTMENT 454 GM JAR TP SCH (11:00)
[2021-02-20] MEDS: ENOXAPARIN NA (PORCINE) 40 MG/0.4 ML DISP.SYRIN SQ SCH (11:02)
[2021-02-20] MEDS: DOCUSATE NA 100 MG/10 ML UNIT-DOSE CUPS PO SCH ×2 (11:02→21:09)
[2021-02-20] MEDS: POLYETHYLENE GLYCOL (HEALTHYLAX) 3350 17 GM PACKET PO SCH (11:02)
[2021-02-20 11:16] LABS: BASO % 0.7 % (0-2.0); EOS % 6.7 % (0-4.5); HEMATOCRIT 29.4 % (32.4-45.2); HEMOGLOBIN 9.8 GM/dL (10.7-15.3); LYMPH % 26.4 % (8-40); MCH 26.8 pg (25.7-33.7); MCHC 33.2 g/dl (32.0-36.0); MEAN CELL VOLUME 80.7 fl (80-96); MEAN PLT VOLUME 9.1 fl (7.5-11.1); MONO % 9.7 % (3.8-10.2); NEUT % 56.5 % (42.8-82.8); PLATELET COUNT 190 10^3/uL (134-434); RBC 3.65 M/mm3 (3.60-5.2); RDW 13.7 % (11.6-15.6)
[2021-02-20 11:40] LABS: ALBUMIN 2.9 g/dl (3.4-5.0); CALCIUM 8.7 mg/dL (8.5-10.1)
[2021-02-20 11:41] LABS: MAGNESIUM 2.1 mg/dL (1.8-2.4)
[2021-02-20 11:44] LABS: PHOSPHOROUS 3.7 mg/dL (2.5-4.9)
[2021-02-20 11:45] LABS: BILIRUBIN,TOTAL 0.4 mg/dL (0.2-1); TOT PROT 6.1 g/dl (6.4-8.2)
[2021-02-20] MEDS ORDERED: MELATONIN 5 MG TABLETS PO PRN (16:07)
[2021-02-20] MEDS ORDERED: INSULIN (NOVOLOG) ASPART 100 UNITS/ML 10ML VIAL ONE ×2 (16:23→18:14)
[2021-02-20] MEDS: MAG HYDROX/AL HYDROX/SIMETH 30 ML UNIT-DOSE CUP PO PRN (17:56)
[2021-02-20] MEDS: ATORVASTATIN CA 40 MG TABLET (FP) PO SCH (21:09)
[2021-02-21] MEDS: INSULIN (LEVEMIR) 100 UNITS/ML UNITS SQ SCH ×2 (06:35→21:23)
[2021-02-21] MEDS: INSULIN SLIDING SCALE (NOVOLOG) 1 VIAL SQ SCH ×3 (06:36→17:39)
[2021-02-21] MEDS: amLODIPine BESYLATE 10 MG TABLET (FP) PO SCH (10:22)
[2021-02-21] MEDS: ASPIRIN COATED 81 MG TABLET.EC PO SCH (10:22)
[2021-02-21] MEDS: ZINC SULFATE 220 MG CAPSULE (FP) PO SCH ×2 (10:22→21:14)
[2021-02-21] MEDS: LOSARTAN POTASSIUM 25 MG TABLET PO SCH (10:22)
[2021-02-21] MEDS: ESCITALOPRAM OXALATE 10 MG TABLET PO SCH (10:22)
[2021-02-21] MEDS: MINERAL OIL/PET HY-PHL TOPICAL OINTMENT 454 GM JAR TP SCH (10:23)
[2021-02-21] MEDS: TAMSULOSIN HCL 0.4 MG CAP PO SCH (10:23)
[2021-02-21] MEDS: ENOXAPARIN NA (PORCINE) 40 MG/0.4 ML DISP.SYRIN SQ SCH (10:24)
[2021-02-21] MEDS: QUEtiapine FUMARATE 25 MG TABLET PO SCH ×2 (10:24→21:14)
[2021-02-21] MEDS: DOCUSATE NA 100 MG/10 ML UNIT-DOSE CUPS PO SCH ×2 (10:24→21:23)
[2021-02-21] MEDS: POLYETHYLENE GLYCOL (HEALTHYLAX) 3350 17 GM PACKET PO SCH (10:24)
[2021-02-21] MEDS: MAG HYDROX/AL HYDROX/SIMETH 30 ML UNIT-DOSE CUP PO PRN ×2 (14:34→20:05)
[2021-02-21] MEDS ORDERED: INSULIN (NOVOLOG) ASPART 100 UNITS/ML 10ML VIAL ONE (17:39)
[2021-02-21] MEDS: ATORVASTATIN CA 40 MG TABLET (FP) PO SCH (21:14)
[2021-02-22] MEDS: INSULIN SLIDING SCALE (NOVOLOG) 1 VIAL SQ SCH ×3 (06:05→17:07)
[2021-02-22] MEDS: INSULIN (LEVEMIR) 100 UNITS/ML UNITS SQ SCH (06:06)
[2021-02-22] MEDS: TAMSULOSIN HCL 0.4 MG CAP PO SCH (09:46)
[2021-02-22] MEDS: ESCITALOPRAM OXALATE 10 MG TABLET PO SCH (09:47)
[2021-02-22] MEDS: QUEtiapine FUMARATE 25 MG TABLET PO SCH (09:47)
[2021-02-22] MEDS: ASPIRIN COATED 81 MG TABLET.EC PO SCH (09:47)
[2021-02-22] MEDS: POLYETHYLENE GLYCOL (HEALTHYLAX) 3350 17 GM PACKET PO SCH (09:47)
[2021-02-22] MEDS: ENOXAPARIN NA (PORCINE) 40 MG/0.4 ML DISP.SYRIN SQ SCH (09:47)
[2021-02-22] MEDS: ZINC SULFATE 220 MG CAPSULE (FP) PO SCH (09:47)
[2021-02-22] MEDS: amLODIPine BESYLATE 10 MG TABLET (FP) PO SCH (09:47)
[2021-02-22] MEDS: DOCUSATE NA 100 MG/10 ML UNIT-DOSE CUPS PO SCH (09:48)
[2021-02-22] MEDS: MINERAL OIL/PET HY-PHL TOPICAL OINTMENT 454 GM JAR TP SCH (09:48)
[2021-02-22] MEDS: LOSARTAN POTASSIUM 25 MG TABLET PO SCH (09:48)
[2021-02-22] MEDS ORDERED: PT OWN MED DRAWER 7, Y5N ONE (10:14)
[2021-02-22] MEDS: ACETAMINOPHEN 325 MG TABLET (FP) PO PRN (13:34)
[2021-02-22 14:47] VITALS: BP 132/70; PULSE 69; TEMP 97.9
[2021-02-22] MEDS: MAG HYDROX/AL HYDROX/SIMETH 30 ML UNIT-DOSE CUP PO PRN (15:59)
== END 2021-02-22 21:21 | disposition home or self-care (01) | DRG 689 ==
LOC: JER 13:39 → JERBED 16:51 → JER 19:15 → J8W 02-13 14:43
PROVIDERS: ADMIT Internal Medicine; ATTEND Internal Medicine
DX: N39.0 Urinary tract infection, site not specified (principal); G92 Toxic encephalopathy; R41.82 Altered mental status, unspecified; F03.90 Unspecified dementia, unspecified severity, without behavioral disturbance, psychotic disturbance, mood disturbance, and anxiety; E78.5 Hyperlipidemia, unspecified; I10 Essential (primary) hypertension; R33.9 Retention of urine, unspecified; K59.00 Constipation, unspecified; E11.65 Type 2 diabetes mellitus with hyperglycemia; K52.9 Noninfective gastroenteritis and colitis, unspecified; N20.0 Calculus of kidney; E11.43 Type 2 diabetes mellitus with diabetic autonomic (poly)neuropathy; K31.84 Gastroparesis
CPT/HCPCS: 36415; 71045-TC-FY; 74176-TC; 80053; 81003; 82962; 83735; 84100; 85025; 86140; 87045; 87046; 87086; 87186; 93005; 93010; 97116-GP; 97161-GP; 99285-25; C9803; U0003; U0005

== ENCOUNTER → 2021-02-26 | Emergency (ER) | payer OTHER, BC ==
[~2021-02-26] MED LIST: HALOPERIDOL LACTATE 5 MG/ML IM ONE; HALOPERIDOL LACTATE 5 MG/ML SYRINGE ONE; QUEtiapine FUMARATE 25 MG TABLET ONE; QUEtiapine FUMARATE 25 MG TABLET PO ONE
[2021-02-26 15:56] VITALS: TEMP 98; BMI 23.0
[2021-02-26 16:44] LABS: EOS % 5.3 % (0-4.5); HEMATOCRIT 29.3 % (32.4-45.2); HEMOGLOBIN 9.7 GM/dl (10.7-15.3); LYMPH % 18.8 % (8-40); MCH 26.9 pg (25.7-33.7); MCHC 33.2 g/dl (32.0-36.0); MEAN PLT VOLUME 10.7 fl (7.5-11.1); MONO % 8.3 % (3.8-10.2); NEUT % 66.6 % (42.8-82.8); PLATELET COUNT 217 10^3/uL (134-434); RBC 3.62 M/mm3 (3.60-5.2); RDW 12.7 % (11.6-15.6); WHITE BLOOD COUNT 7.4 K/mm3 (4.0-10.8)
[2021-02-26 16:57] LABS: ALBUMIN 3.5 g/dl (3.4-5.0); BILIRUBIN,TOTAL 0.2 mg/dl (0.2-1); CALCIUM 9.3 mg/dl (8.5-10); CREATININE 1.2 mg/dl (0.55-1.3); TOT PROT 6.2 g/dl (6.4-8.2)
[2021-02-26 21:24] VITALS: BP 156/63; PULSE 92
== END | disposition home or self-care (01) ==
LOC: FER 15:30 → SUPCPDRO 15:30
PROC: 3E0233Z Introduction of Anti-inflammatory into Muscle, Percutaneous Approach (ICD-10-PCS; principal; 2021-02-26)
DX: F03.91 Unspecified dementia, unspecified severity, with behavioral disturbance (principal)
CPT/HCPCS: 36415; 80053; 81003; 85025; 87086; 99284-25; C9803; U0003; U0005

== ENCOUNTER 2021-03-04 08:32 | Inpatient (IN) | payer OTHER, BC ==
[2021-03-04] MEDS ORDERED: MAG HYDROX/AL HYDROX/SIMETH -MYLANTA- ORAL SUSPENSION PO ONE (09:40)
[2021-03-04] MEDS ORDERED: FAMOTIDINE 20 MG/50 ML IVPB 20 MG/50 ML MG IVPB ONE ×2 (09:40→10:13)
[2021-03-04] MEDS ORDERED: ACETAMINOPHEN 1000 MG/100 ML VIAL (NON FORMULARY) IVPB ONE (09:40)
[2021-03-04] MEDS ORDERED: ACETAMINOPHEN INJECTION 100 ML IVPB ONE (10:13)
[2021-03-04] MEDS ORDERED: MAG HYDROX/AL HYDROX/SIMETH 30 ML UNIT-DOSE CUP ONE (10:13)
[2021-03-04 10:22] LABS: BASO % 0.8 % (0-2.0); EOS % 5.1 % (0-4.5); HEMATOCRIT 30.5 % (32.4-45.2); HEMOGLOBIN 10.2 GM/dL (10.7-15.3); LYMPH % 24.7 % (8-40); MCHC 33.5 g/dl (32.0-36.0); MEAN CELL VOLUME 80.6 fl (80-96); MEAN PLT VOLUME 9.4 fl (7.5-11.1); MONO % 6.2 % (3.8-10.2); NEUT % 63.2 % (42.8-82.8); PLATELET COUNT 267 10^3/uL (134-434); RBC 3.78 M/mm3 (3.60-5.2); RDW 13.4 % (11.6-15.6); WHITE BLOOD COUNT 8.5 K/mm3 (4.0-10.0)
[2021-03-04 10:42] LABS: EPI CELLS 2 /uL (0-25.1); HYALINE CASTS 2 /uL (0-3.1); PH,URINE 6.5 (5.0-8.0); URINE APPEARANCE CLEAR; URINE BACTERIA 2458 /uL (0-1359); URINE BILIRUBIN NEGATIVE (NEGATIVE); URINE COLOR YELLOW; URINE GLUCOSE (UA) NEGATIVE (NEGATIVE); URINE KETONE NEGATIVE (NEGATIVE); URINE LEUK ESTERASE 1+ (NEGATIVE); URINE NITRITE POSITIVE (NEGATIVE); URINE PROTEIN NEGATIVE (NEGATIVE); URINE RBC 16 /uL (0-23.9); URINE UROBILINOGEN 0.2 mg/dL (0.2-1.0); URINE WBC 200 /uL (0-25.8)
[2021-03-04 10:46] LABS: CALCIUM 8.9 mg/dL (8.5-10.1)
[2021-03-04 10:47] LABS: ALBUMIN 3.3 g/dl (3.4-5.0); BLOOD UREA NITROGEN 16.7 mg/dL (7-18); MAGNESIUM 2.8 mg/dL (1.8-2.4)
[2021-03-04 10:50] LABS: CREATININE 1.2 mg/dL (0.55-1.3)
[2021-03-04 10:52] LABS: TOT PROT 6.9 g/dl (6.4-8.2)
[2021-03-04 10:54] LABS: BILIRUBIN,TOTAL 0.3 mg/dL (0.2-1)
[2021-03-04] MEDS ORDERED: HALOPERIDOL LACTATE 5 MG/ML IM ONE ×2 (10:55→11:18)
[2021-03-04] MEDS ORDERED: HALOPERIDOL LACTATE 5 MG/ML ONE (10:57)
[2021-03-04] MEDS ORDERED: LORazepam 2 MG/ML SDV VIAL IVPUSH ONE (11:20)
[2021-03-04] MEDS ORDERED: LORazepam 2 MG/ML SDV VIAL ONE (11:21)
[2021-03-04] MEDS ORDERED: PIPERACILLIN/TAZOB 3.375 GM 3.375 GM in DEXTROSE 5%-WATER - 50 ML IVPB ONE (12:50)
[2021-03-04] MEDS ORDERED: ERTAPENEM SODIUM 1 GM in SODIUM CHLORIDE 50 ML IVPB ONE (12:54)
[2021-03-04] MEDS ORDERED: VANCOMYCIN 1 GM in D5W (PRE-DOCKED) 1,000 MG/250 ML IVPB ONE (12:54)
[2021-03-04] MEDS ORDERED: VANCOMYCIN 1 GRAM (PRE-DOCKED) 1,000 MG/250 ML BAG IVPB ONE (13:13)
[2021-03-04] MEDS ORDERED: ERTAPENEM SODIUM 1 GM VIAL ONE (13:13)
[2021-03-04] MEDS ORDERED: oxyCODONE HCL 5 MG TABLET PO PRN (13:53)
[2021-03-04] MEDS ORDERED: LORazepam 0.5 MG TABLET ONE (16:02)
[2021-03-04] MEDS: LORazepam 0.5 MG TABLET PO PRN (16:04)
[2021-03-04] MEDS: INSULIN SLIDING SCALE (NOVOLOG) 1 VIAL SQ SCH (17:08)
[2021-03-04] MEDS ORDERED: QUEtiapine FUMARATE 25 MG TABLET ONE (22:19)
[2021-03-04] MEDS ORDERED: ATORVASTATIN CA 40 MG TABLET (FP) ONE (22:19)
[2021-03-04] MEDS: ATORVASTATIN CA 40 MG TABLET (FP) PO SCH (22:35)
[2021-03-04] MEDS: QUEtiapine FUMARATE 25 MG TABLET PO SCH (22:35)
[2021-03-05] MEDS ORDERED: QUEtiapine FUMARATE 25 MG TABLET ONE ×2 (06:18→15:18)
[2021-03-05] MEDS: QUEtiapine FUMARATE 25 MG TABLET PO SCH ×2 (06:22→15:00)
[2021-03-05] MEDS: INSULIN SLIDING SCALE (NOVOLOG) 1 VIAL SQ SCH ×3 (07:50→16:37)
[2021-03-05 08:27] LABS: BASO % 0.7 % (0-2.0); EOS % 4.9 % (0-4.5); HEMATOCRIT 32.8 % (32.4-45.2); HEMOGLOBIN 10.8 GM/dL (10.7-15.3); LYMPH % 19.3 % (8-40); MCH 26.3 pg (25.7-33.7); MEAN CELL VOLUME 79.6 fl (80-96); MEAN PLT VOLUME 9.1 fl (7.5-11.1); MONO % 7.2 % (3.8-10.2); NEUT % 67.9 % (42.8-82.8); PLATELET COUNT 293 10^3/uL (134-434); RBC 4.12 M/mm3 (3.60-5.2); RDW 13.5 % (11.6-15.6); WHITE BLOOD COUNT 8.4 K/mm3 (4.0-10.0)
[2021-03-05 08:46] LABS: CALCIUM 9.2 mg/dL (8.5-10.1)
[2021-03-05 08:47] LABS: ALBUMIN 3.5 g/dl (3.4-5.0); BLOOD UREA NITROGEN 13.8 mg/dL (7-18); MAGNESIUM 2.7 mg/dL (1.8-2.4)
[2021-03-05 08:50] LABS: CREATININE 1.1 mg/dL (0.55-1.3); PHOSPHOROUS 3.7 mg/dL (2.5-4.9)
[2021-03-05 08:51] LABS: BILIRUBIN,TOTAL 0.4 mg/dL (0.2-1); TOT PROT 7.2 g/dl (6.4-8.2)
[2021-03-05] MEDS ORDERED: PT OWN MED DRAWER 7, Y5N ONE (09:38)
[2021-03-05] MEDS: TAMSULOSIN HCL 0.4 MG CAP PO SCH (10:00)
[2021-03-05] MEDS ORDERED: ENOXAPARIN NA (PORCINE) 40 MG/0.4 ML DISP.SYRIN SQ SCH (10:00)
[2021-03-05] MEDS ORDERED: ASPIRIN 81 MG CHEWABLE TABLETS ONE (10:17)
[2021-03-05] MEDS ORDERED: TAMSULOSIN HCL 0.4 MG CAP ONE (10:17)
[2021-03-05] MEDS ORDERED: amLODIPine BESYLATE 5 MG TABLET (FP) ONE (10:17)
[2021-03-05] MEDS ORDERED: ENOXAPARIN NA (PORCINE) 30 MG/0.3 ML DISP.SYRIN SQ ONE (10:18)
[2021-03-05] MEDS: ASPIRIN 81 MG CHEWABLE TABLETS PO SCH (10:36)
[2021-03-05] MEDS: amLODIPine BESYLATE 10 MG TABLET (FP) PO SCH (10:36)
[2021-03-05] MEDS: ENOXAPARIN NA (PORCINE) 30 MG/0.3 ML DISP.SYRIN SQ SCH (10:36)
[2021-03-05] MEDS: LOSARTAN POTASSIUM 25 MG TABLET PO SCH (10:36)
[2021-03-06] MEDS: QUEtiapine FUMARATE 25 MG TABLET PO SCH ×2 (05:38→05:41)
[2021-03-06] MEDS: ATORVASTATIN CA 40 MG TABLET (FP) PO SCH ×2 (05:38→22:14)
[2021-03-06] MEDS: INSULIN SLIDING SCALE (NOVOLOG) 1 VIAL SQ SCH ×3 (06:12→17:53)
[2021-03-06 09:25] LABS: BASO % 0.8 % (0-2.0); EOS % 3.7 % (0-4.5); HEMATOCRIT 30.4 % (32.4-45.2); HEMOGLOBIN 10.1 GM/dL (10.7-15.3); LYMPH % 25.6 % (8-40); MCH 26.7 pg (25.7-33.7); MCHC 33.3 g/dl (32.0-36.0); MEAN CELL VOLUME 80.4 fl (80-96); MEAN PLT VOLUME 9.5 fl (7.5-11.1); MONO % 8.9 % (3.8-10.2); PLATELET COUNT 273 10^3/uL (134-434); RBC 3.78 M/mm3 (3.60-5.2); RDW 13.4 % (11.6-15.6)
[2021-03-06 09:58] LABS: BLOOD UREA NITROGEN 14.9 mg/dL (7-18)
[2021-03-06 09:59] LABS: CREATININE 1.1 mg/dL (0.55-1.3)
[2021-03-06] MEDS: ENOXAPARIN NA (PORCINE) 30 MG/0.3 ML DISP.SYRIN SQ SCH (11:30)
[2021-03-06] MEDS: TAMSULOSIN HCL 0.4 MG CAP PO SCH (11:40)
[2021-03-06] MEDS: LOSARTAN POTASSIUM 25 MG TABLET PO SCH (11:40)
[2021-03-06] MEDS: ASPIRIN 81 MG CHEWABLE TABLETS PO SCH (11:40)
[2021-03-06] MEDS: amLODIPine BESYLATE 10 MG TABLET (FP) PO SCH (11:41)
[2021-03-06] MEDS: OLANZapine 5 MG TABLET PO SCH ×2 (15:27→22:14)
[2021-03-06] MEDS: ACETAMINOPHEN 325 MG TABLET (FP) PO PRN (15:27)
[2021-03-06 16:35] VITALS: BMI 22.6
[2021-03-06] MEDS ORDERED: OLANZapine 5 MG TABLET PO SCH (22:00)
[2021-03-07] MEDS: LORazepam 0.5 MG TABLET PO PRN ×2 (04:29→21:02)
[2021-03-07] MEDS: INSULIN SLIDING SCALE (NOVOLOG) 1 VIAL SQ SCH ×3 (06:06→17:12)
[2021-03-07 11:20] LABS: HEMATOCRIT 30.1 % (32.4-45.2); HEMOGLOBIN 10.2 GM/dL (10.7-15.3); MCH 26.9 pg (25.7-33.7); MCHC 33.8 g/dl (32.0-36.0); MEAN CELL VOLUME 79.5 fl (80-96); PLATELET COUNT 279 10^3/uL (134-434); RBC 3.79 M/mm3 (3.60-5.2); RDW 13.5 % (11.6-15.6)
[2021-03-07 11:31] LABS: CALCIUM 8.9 mg/dL (8.5-10.1)
[2021-03-07 11:32] LABS: BLOOD UREA NITROGEN 16.2 mg/dL (7-18)
[2021-03-07] MEDS: ACETAMINOPHEN 325 MG TABLET (FP) PO PRN ×2 (12:19→19:30)
[2021-03-07] MEDS: OLANZapine 5 MG TABLET PO SCH ×2 (12:19→21:02)
[2021-03-07] MEDS: LOSARTAN POTASSIUM 25 MG TABLET PO SCH (12:19)
[2021-03-07] MEDS: ASPIRIN 81 MG CHEWABLE TABLETS PO SCH (12:19)
[2021-03-07] MEDS: amLODIPine BESYLATE 10 MG TABLET (FP) PO SCH (12:19)
[2021-03-07] MEDS: ENOXAPARIN NA (PORCINE) 30 MG/0.3 ML DISP.SYRIN SQ SCH (12:20)
[2021-03-07] MEDS: TAMSULOSIN HCL 0.4 MG CAP PO SCH (12:20)
[2021-03-07] MEDS: ATORVASTATIN CA 40 MG TABLET (FP) PO SCH (21:02)
[2021-03-08] MEDS ORDERED: HALOPERIDOL LACTATE 5 MG/ML IM ONE (01:11)
[2021-03-08] MEDS: INSULIN SLIDING SCALE (NOVOLOG) 1 VIAL SQ SCH ×3 (06:45→17:14)
[2021-03-08] MEDS: amLODIPine BESYLATE 10 MG TABLET (FP) PO SCH (09:53)
[2021-03-08] MEDS: LOSARTAN POTASSIUM 25 MG TABLET PO SCH (09:53)
[2021-03-08] MEDS: ASPIRIN 81 MG CHEWABLE TABLETS PO SCH (09:53)
[2021-03-08] MEDS: OLANZapine 5 MG TABLET PO SCH ×2 (09:53→21:11)
[2021-03-08] MEDS: TAMSULOSIN HCL 0.4 MG CAP PO SCH (09:53)
[2021-03-08] MEDS: ENOXAPARIN NA (PORCINE) 30 MG/0.3 ML DISP.SYRIN SQ SCH (09:54)
[2021-03-08] MEDS: ACETAMINOPHEN 325 MG TABLET (FP) PO PRN (17:57)
[2021-03-08] MEDS: ATORVASTATIN CA 40 MG TABLET (FP) PO SCH (21:11)
[2021-03-09] MEDS ORDERED: LORazepam 0.5 MG TABLET PO ONE (01:16)
[2021-03-09] MEDS: INSULIN SLIDING SCALE (NOVOLOG) 1 VIAL SQ SCH ×3 (06:02→17:04)
[2021-03-09] MEDS: TAMSULOSIN HCL 0.4 MG CAP PO SCH (08:39)
[2021-03-09] MEDS ORDERED: LORazepam 2 MG/ML SDV VIAL IVPUSH PRN (10:21)
[2021-03-09] MEDS: ENOXAPARIN NA (PORCINE) 30 MG/0.3 ML DISP.SYRIN SQ SCH (10:36)
[2021-03-09] MEDS: amLODIPine BESYLATE 10 MG TABLET (FP) PO SCH (10:36)
[2021-03-09] MEDS: ASPIRIN 81 MG CHEWABLE TABLETS PO SCH (10:36)
[2021-03-09] MEDS: OLANZapine 5 MG TABLET PO SCH ×2 (10:37→21:06)
[2021-03-09] MEDS: LOSARTAN POTASSIUM 25 MG TABLET PO SCH (10:37)
[2021-03-09] MEDS: ATORVASTATIN CA 40 MG TABLET (FP) PO SCH (21:06)
[2021-03-10] MEDS: INSULIN SLIDING SCALE (NOVOLOG) 1 VIAL SQ SCH ×3 (06:53→16:48)
[2021-03-10] MEDS: ENOXAPARIN NA (PORCINE) 30 MG/0.3 ML DISP.SYRIN SQ SCH (11:05)
[2021-03-10] MEDS: TAMSULOSIN HCL 0.4 MG CAP PO SCH (11:05)
[2021-03-10] MEDS: amLODIPine BESYLATE 10 MG TABLET (FP) PO SCH (11:05)
[2021-03-10] MEDS: OLANZapine 5 MG TABLET PO SCH ×2 (11:06→21:32)
[2021-03-10] MEDS: ASPIRIN 81 MG CHEWABLE TABLETS PO SCH (11:06)
[2021-03-10] MEDS: LOSARTAN POTASSIUM 25 MG TABLET PO SCH (11:06)
[2021-03-10 18:49] VITALS: TEMP 97.6
[2021-03-10] MEDS: ACETAMINOPHEN 325 MG TABLET (FP) PO PRN (19:38)
[2021-03-10] MEDS: ATORVASTATIN CA 40 MG TABLET (FP) PO SCH (21:32)
[2021-03-11 00:04] VITALS: BP 122/49; PULSE 79
== END 2021-03-10 20:50 | disposition home health service (06) | DRG 57 ==
LOC: JER 08:32 → JERBED 12:50 → J5S 03-05 20:08 → J4S 03-07 17:36
PROVIDERS: ADMIT Student in an Organized Health Care Education/Training Program; ATTEND Internal Medicine
DX: G30.9 Alzheimer's disease, unspecified (principal); F02.81 Dementia in other diseases classified elsewhere, unspecified severity, with behavioral disturbance; E11.9 Type 2 diabetes mellitus without complications; I10 Essential (primary) hypertension; E78.5 Hyperlipidemia, unspecified; F32.9 Major depressive disorder, single episode, unspecified; R19.7 Diarrhea, unspecified
CPT/HCPCS: 36415; 70450-TC; 71045-TC-FY; 72125-TC; 72170-TC-FY; 74018-TC-FY; 76705-TC; 80048; 80053; 81003; 82550; 82962; 83605; 83735; 84100; 84484; 85025; 85027; 87086; 87186; 87324; 87449; 93005; 93010; 97116-GP; 97161-GP; 99285-25; C9803; J0131; U0003; U0005

== ENCOUNTER 2021-09-13 19:24 | Inpatient (IN) | payer OTHER, BC ==
[2021-09-13 19:51] VITALS: BMI 27.8
[2021-09-13] MEDS ORDERED: SODIUM CHLORIDE 1,000 ML IV STA (19:59)
[2021-09-13 20:26] LABS: BASO % 0.5 % (0-2.0); EOS % 1.3 % (0-4.5); HEMATOCRIT 34.2 % (32.4-45.2); HEMOGLOBIN 11.2 GM/dL (10.7-15.3); LYMPH % 22.4 % (8-40); MCHC 32.7 g/dl (32.0-36.0); MEAN CELL VOLUME 79.4 fl (80-96); MEAN PLT VOLUME 9.4 fl (7.5-11.1); MONO % 8.5 % (3.8-10.2); NEUT % 67.3 % (42.8-82.8); PLATELET COUNT 264 10^3/uL (134-434); RDW 14.7 % (11.6-15.6); WHITE BLOOD COUNT 10.8 K/mm3 (4.0-10.0)
[2021-09-13 20:42] LABS: INR 1.2 (0.83-1.09); PROTHROMBIN TIME (PATIENT) 13.8 SEC (9.7-13.0)
[2021-09-13 20:44] LABS: CHLORIDE 117 mmol/L (98-107); SODIUM 149 mmol/L (136-145)
[2021-09-13 20:46] LABS: ALBUMIN 3.1 g/dl (3.4-5.0); ANION GAP 3 MMOL/L (8-16); BLOOD UREA NITROGEN 38.8 mg/dL (7-18); CALCIUM 9.5 mg/dL (8.5-10.1); CO2 30 mmol/L (21-32); MAGNESIUM 2.4 mg/dL (1.8-2.4)
[2021-09-13 20:49] LABS: SGPT/ALT 22 U/L (13-61)
[2021-09-13 20:50] LABS: CREATININE 1.7 mg/dL (0.55-1.3); PHOSPHOROUS 3.4 mg/dL (2.5-4.9); SGOT/AST 9 U/L (15-37)
[2021-09-13 20:51] LABS: BILIRUBIN,TOTAL 0.4 mg/dL (0.2-1); TOT PROT 7.3 g/dl (6.4-8.2)
[2021-09-13 20:52] LABS: ALK PHOS 108 U/L (45-117)
[2021-09-13 20:53] LABS: GLUCOSE,RANDOM 530 mg/dL (74-106)
[2021-09-13] MEDS ORDERED: INSULIN (NOVOLOG) ASPART 100 UNITS/ML 10ML VIAL SQ ONE (21:07)
[2021-09-13] MEDS ORDERED: SODIUM CHLORIDE 500 ML IV STA ×2 (21:08→21:49)
[2021-09-13 22:04] LABS: EPI CELLS >36 /uL (0-25.1); HYALINE CASTS 83 /uL (0-3.1); URINE APPEARANCE TURBID; URINE BACTERIA 7900 /uL (0-1359); URINE BILIRUBIN NEGATIVE (NEGATIVE); URINE COLOR YELLOW; URINE GLUCOSE (UA) 3+ (NEGATIVE); URINE KETONE TRACE (NEGATIVE); URINE LEUK ESTERASE 2+ (NEGATIVE); URINE NITRITE POSITIVE (NEGATIVE); URINE PROTEIN 1+ (NEGATIVE); URINE UROBILINOGEN 0.2 mg/dL (0.2-1.0); URINE WBC 28341 /uL (0-25.8)
[2021-09-13 22:08] LABS: VENOUS BASE EXCESS -4.1 mmol/L (-2-2); VENOUS O2 SATURATION 22.8 % (70-80); VENOUS PCO2 46.2 mmHg (38-52); VENOUS PH 7.302 (7.310-7.410)
[2021-09-13 22:28] LABS: YEAST MODERATE (NEGATIVE)
[2021-09-13] MEDS ORDERED: PIPERACILLIN/TAZOB 4.5 GM 4.5 GM in DEXTROSE 5%-WATER 100 ML IVPB ONE (22:33)
[2021-09-13] MEDS ORDERED: VANCOMYCIN 1 GM in D5W (PRE-DOCKED) 1,000 MG/250 ML IVPB ONE (22:33)
[2021-09-13] MEDS ORDERED: PIPERACILLIN/TAZOB 4.5 GM 4.5 GM/100 ML BAG IVPB ONE (23:04)
[2021-09-13] MEDS ORDERED: VANCOMYCIN 1 GRAM (PRE-DOCKED) 1,000 MG/250 ML BAG IVPB ONE (23:04)
[2021-09-14 02:37] LABS: CHLORIDE 120 mmol/L (98-107); SODIUM 151 mmol/L (136-145)
[2021-09-14 02:38] LABS: CALCIUM 9.2 mg/dL (8.5-10.1)
[2021-09-14 02:39] LABS: ANION GAP 6 MMOL/L (8-16); BLOOD UREA NITROGEN 35.4 mg/dL (7-18); CO2 25 mmol/L (21-32)
[2021-09-14 02:42] LABS: CREATININE 1.5 mg/dL (0.55-1.3)
[2021-09-14 04:01] LABS: GLUCOSE,RANDOM 431 mg/dL (74-106)
[2021-09-14] MEDS ORDERED: SODIUM CHLORIDE 0.45% 1,000 ML IV SCH (05:15)
[2021-09-14] MEDS ORDERED: INSULIN (NOVOLOG) ASPART 100 UNITS/ML 10ML VIAL SQ ONE (05:24)
[2021-09-14] MEDS ORDERED: HEPARIN NA (PORCINE) 5,000 UNITS/ML 1ML VIAL ONE ×2 (06:36→15:20)
[2021-09-14] MEDS: HEPARIN NA (PORCINE) 5,000 UNITS/ML 1ML VIAL SQ SCH ×3 (06:44→22:19)
[2021-09-14] MEDS ORDERED: INSULIN (NOVOLOG) ASPART 100 UNITS/ML 10ML VIAL SQ SCH (07:00)
[2021-09-14] MEDS ORDERED: LACTATED RINGERS SOLUTION 1,000 ML/1,000 ML INFUS.BAG IV SCH (08:30)
[2021-09-14] MEDS ORDERED: metoPROLOL SUCCINATE 25 MG TAB.SR.24H (FP) ONE (09:58)
[2021-09-14] MEDS ORDERED: ASPIRIN 81 MG CHEWABLE TABLETS ONE (09:59)
[2021-09-14] MEDS ORDERED: INSULIN (LEVEMIR) 100 UNITS/ML UNITS SQ ONE (09:59)
[2021-09-14] MEDS ORDERED: ERTAPENEM SODIUM 1 GM VIAL ONE (09:59)
[2021-09-14] MEDS: ASPIRIN 81 MG CHEWABLE TABLETS PO SCH (10:15)
[2021-09-14] MEDS: metoPROLOL SUCCINATE 25 MG TAB.SR.24H (FP) PO SCH (10:15)
[2021-09-14] MEDS: INSULIN (LEVEMIR) 100 UNITS/ML UNITS SQ SCH ×2 (10:17→22:21)
[2021-09-14] MEDS: ERTAPENEM SODIUM 1 GM in SODIUM CHLORIDE 50 ML IVPB SCH (10:17)
[2021-09-14 10:56] LABS: BASO % 0.7 % (0-2.0); EOS % 2.7 % (0-4.5); HEMATOCRIT 31.3 % (32.4-45.2); HEMOGLOBIN 10.2 GM/dL (10.7-15.3); LYMPH % 26.2 % (8-40); MCH 25.9 pg (25.7-33.7); MCHC 32.5 g/dl (32.0-36.0); MEAN CELL VOLUME 79.7 fl (80-96); MEAN PLT VOLUME 9.4 fl (7.5-11.1); NEUT % 62.4 % (42.8-82.8); PLATELET COUNT 277 10^3/uL (134-434); RBC 3.93 M/mm3 (3.60-5.2); RDW 15.1 % (11.6-15.6); WHITE BLOOD COUNT 10.4 K/mm3 (4.0-10.0)
[2021-09-14] MEDS: INSULIN SLIDING SCALE (NOVOLOG) 1 VIAL SQ SCH ×3 (11:00→22:22)
[2021-09-14 11:16] LABS: CALCIUM 9.6 mg/dL (8.5-10.1)
[2021-09-14 11:17] LABS: ALBUMIN 2.8 g/dl (3.4-5.0); BLOOD UREA NITROGEN 32.7 mg/dL (7-18); MAGNESIUM 2.1 mg/dL (1.8-2.4)
[2021-09-14 11:20] LABS: CREATININE 1.4 mg/dL (0.55-1.3)
[2021-09-14 11:21] LABS: BILIRUBIN,TOTAL 0.8 mg/dL (0.2-1); TOT PROT 6.7 g/dl (6.4-8.2)
[2021-09-14 13:08] LABS: SARS-CoV-2 NAA Not Detected (Not Detected)
[2021-09-14] MEDS ORDERED: HEPARIN INFUSION - 25,000 UNITS/500 ML INFUS.BAG IVPB ONE (15:20)
[2021-09-14] MEDS: OLANZapine 5 MG TABLET PO SCH (22:22)
[2021-09-14] MEDS: ATORVASTATIN CA 40 MG TABLET (FP) PO SCH (22:24)
[2021-09-15] MEDS: HEPARIN NA (PORCINE) 5,000 UNITS/ML 1ML VIAL SQ SCH ×3 (06:02→21:39)
[2021-09-15] MEDS: INSULIN (LEVEMIR) 100 UNITS/ML UNITS SQ SCH ×2 (06:02→21:58)
[2021-09-15] MEDS: INSULIN SLIDING SCALE (NOVOLOG) 1 VIAL SQ SCH ×4 (06:02→21:58)
[2021-09-15 08:30] LABS: BASO % 0.6 % (0-2.0); EOS % 4.3 % (0-4.5); HEMATOCRIT 30.6 % (32.4-45.2); MCHC 32.8 g/dl (32.0-36.0); MEAN CELL VOLUME 79.3 fl (80-96); MEAN PLT VOLUME 9.2 fl (7.5-11.1); NEUT % 55.1 % (42.8-82.8); PLATELET COUNT 229 10^3/uL (134-434); RBC 3.86 M/mm3 (3.60-5.2); RDW 14.6 % (11.6-15.6); WHITE BLOOD COUNT 7.6 K/mm3 (4.0-10.0)
[2021-09-15 08:54] LABS: CALCIUM 8.9 mg/dL (8.5-10.1)
[2021-09-15 08:55] LABS: ALBUMIN 2.5 g/dl (3.4-5.0); BLOOD UREA NITROGEN 32.9 mg/dL (7-18)
[2021-09-15 08:58] LABS: CREATININE 1.2 mg/dL (0.55-1.3)
[2021-09-15 08:59] LABS: TOT PROT 6.1 g/dl (6.4-8.2)
[2021-09-15 09:00] LABS: BILIRUBIN,TOTAL 0.4 mg/dL (0.2-1)
[2021-09-15] MEDS: metoPROLOL SUCCINATE 25 MG TAB.SR.24H (FP) PO SCH (10:02)
[2021-09-15] MEDS: ASPIRIN 81 MG CHEWABLE TABLETS PO SCH (10:02)
[2021-09-15] MEDS: ERTAPENEM SODIUM 1 GM in SODIUM CHLORIDE 50 ML IVPB SCH (10:03)
[2021-09-15] MEDS: SODIUM CHLORIDE 0.45% 1,000 ML IV SCH (12:23)
[2021-09-15 12:59] LABS: ARTERIAL BLD GAS O2 SATURATION 98.3 % (95-98); ARTERIAL BLOOD GAS BASE EXCESS 1.6 mmol/L (-2-2); ARTERIAL BLOOD GAS PO2 105.3 mmHg (80-100); ARTERIAL BLOOD GAS pH 7.499 (7.350-7.450)
[2021-09-15] MEDS: ATORVASTATIN CA 40 MG TABLET (FP) PO SCH (21:40)
[2021-09-15] MEDS: OLANZapine 5 MG TABLET PO SCH (21:58)
[2021-09-16] MEDS: SODIUM CHLORIDE 0.45% 1,000 ML IV SCH ×2 (02:24→11:19)
[2021-09-16] MEDS: HEPARIN NA (PORCINE) 5,000 UNITS/ML 1ML VIAL SQ SCH ×3 (06:08→21:23)
[2021-09-16] MEDS: INSULIN (LEVEMIR) 100 UNITS/ML UNITS SQ SCH ×2 (06:08→21:23)
[2021-09-16] MEDS: INSULIN SLIDING SCALE (NOVOLOG) 1 VIAL SQ SCH ×4 (06:09→21:22)
[2021-09-16 08:28] LABS: BLOOD UREA NITROGEN 32.6 mg/dL (7-18); CALCIUM 8.5 mg/dL (8.5-10.1)
[2021-09-16 08:29] LABS: ALBUMIN 2.4 g/dl (3.4-5.0)
[2021-09-16 08:32] LABS: CREATININE 1.1 mg/dL (0.55-1.3)
[2021-09-16 08:33] LABS: BILIRUBIN,TOTAL 0.3 mg/dL (0.2-1); TOT PROT 5.9 g/dl (6.4-8.2)
[2021-09-16] MEDS ORDERED: cefTRIAXone SODIUM 1 GM VIAL ONE (09:42)
[2021-09-16] MEDS ORDERED: DEXTROSE 5%-WATER - 50 ML IVPB ONE (09:42)
[2021-09-16] MEDS: ASPIRIN 81 MG CHEWABLE TABLETS PO SCH (09:48)
[2021-09-16] MEDS: metoPROLOL SUCCINATE 25 MG TAB.SR.24H (FP) PO SCH (09:48)
[2021-09-16] MEDS: CEFTRIAXONE 1 GM in DEXTROSE 5%-WATER - 50 ML IVPB SCH (09:49)
[2021-09-16] MEDS: OLANZapine 5 MG TABLET PO SCH (21:18)
[2021-09-16] MEDS: ATORVASTATIN CA 40 MG TABLET (FP) PO SCH (21:18)
[2021-09-17] MEDS: HEPARIN NA (PORCINE) 5,000 UNITS/ML 1ML VIAL SQ SCH ×3 (06:13→21:17)
[2021-09-17] MEDS: INSULIN (LEVEMIR) 100 UNITS/ML UNITS SQ SCH ×2 (06:13→21:18)
[2021-09-17] MEDS: INSULIN SLIDING SCALE (NOVOLOG) 1 VIAL SQ SCH ×4 (06:13→21:18)
[2021-09-17] MEDS ORDERED: cefTRIAXone SODIUM 1 GM VIAL ONE (10:08)
[2021-09-17] MEDS: CEFTRIAXONE 1 GM in DEXTROSE 5%-WATER - 50 ML IVPB SCH (10:08)
[2021-09-17] MEDS ORDERED: DEXTROSE 5%-WATER - 50 ML IVPB ONE (10:08)
[2021-09-17] MEDS: metoPROLOL SUCCINATE 25 MG TAB.SR.24H (FP) PO SCH (10:09)
[2021-09-17] MEDS: ASPIRIN 81 MG CHEWABLE TABLETS PO SCH (10:09)
[2021-09-17 12:05] LABS: BASO % 0.5 % (0-2.0); EOS % 2.5 % (0-4.5); HEMATOCRIT 28.6 % (32.4-45.2); HEMOGLOBIN 9.3 GM/dL (10.7-15.3); LYMPH % 27.1 % (8-40); MCH 25.7 pg (25.7-33.7); MCHC 32.5 g/dl (32.0-36.0); MEAN CELL VOLUME 78.9 fl (80-96); MEAN PLT VOLUME 9.7 fl (7.5-11.1); NEUT % 61.9 % (42.8-82.8); PLATELET COUNT 197 10^3/uL (134-434); RBC 3.63 M/mm3 (3.60-5.2); RDW 14.2 % (11.6-15.6); WHITE BLOOD COUNT 9.4 K/mm3 (4.0-10.0)
[2021-09-17 12:17] LABS: CALCIUM 8.5 mg/dL (8.5-10.1)
[2021-09-17 12:18] LABS: ALBUMIN 2.2 g/dl (3.4-5.0); BLOOD UREA NITROGEN 27.3 mg/dL (7-18)
[2021-09-17 12:21] LABS: CREATININE 0.9 mg/dL (0.55-1.3)
[2021-09-17 12:22] LABS: TOT PROT 5.5 g/dl (6.4-8.2)
[2021-09-17 12:23] LABS: BILIRUBIN,TOTAL 0.4 mg/dL (0.2-1)
[2021-09-17] MEDS: SODIUM CHLORIDE 0.45% 1,000 ML IV SCH (14:05)
[2021-09-17] MEDS ORDERED: PANTOPRAZOLE SODIUM 40 MG VIAL IVPUSH SCH (17:15)
[2021-09-17] MEDS: ATORVASTATIN CA 40 MG TABLET (FP) PO SCH (21:17)
[2021-09-17] MEDS: OLANZapine 5 MG TABLET PO SCH (21:17)
[2021-09-18] MEDS: HEPARIN NA (PORCINE) 5,000 UNITS/ML 1ML VIAL SQ SCH ×3 (06:41→21:20)
[2021-09-18] MEDS: INSULIN (LEVEMIR) 100 UNITS/ML UNITS SQ SCH ×2 (06:41→21:27)
[2021-09-18] MEDS: INSULIN SLIDING SCALE (NOVOLOG) 1 VIAL SQ SCH ×4 (06:42→21:27)
[2021-09-18] MEDS: SODIUM CHLORIDE 0.45% 1,000 ML IV SCH ×3 (06:44→16:13)
[2021-09-18] MEDS ORDERED: INSULIN SLIDING SCALE (NOVOLOG) 1 VIAL SQ ONE (06:54)
[2021-09-18] MEDS ORDERED: INSULIN (LEVEMIR) 100 UNITS/ML UNITS SQ ONE (06:54)
[2021-09-18 09:13] LABS: HEMATOCRIT 31.5 % (32.4-45.2); HEMOGLOBIN 10.7 GM/dL (10.7-15.3); MCH 26.3 pg (25.7-33.7); MEAN CELL VOLUME 77.4 fl (80-96); MEAN PLT VOLUME 9.7 fl (7.5-11.1); PLATELET COUNT 191 10^3/uL (134-434); RBC 4.06 M/mm3 (3.60-5.2); RDW 13.9 % (11.6-15.6); WHITE BLOOD COUNT 9.1 K/mm3 (4.0-10.0)
[2021-09-18 09:30] LABS: BLOOD UREA NITROGEN 21.9 mg/dL (7-18); CALCIUM 8.3 mg/dL (8.5-10.1)
[2021-09-18 09:31] LABS: ALBUMIN 2.1 g/dl (3.4-5.0)
[2021-09-18 09:33] LABS: PHOSPHOROUS 2.9 mg/dL (2.5-4.9)
[2021-09-18 09:35] LABS: BILIRUBIN,TOTAL 0.6 mg/dL (0.2-1); TOT PROT 5.6 g/dl (6.4-8.2)
[2021-09-18] MEDS ORDERED: DEXTROSE 5%-WATER - 50 ML IVPB ONE (09:55)
[2021-09-18] MEDS ORDERED: cefTRIAXone SODIUM 1 GM VIAL ONE (09:55)
[2021-09-18] MEDS: metoPROLOL SUCCINATE 25 MG TAB.SR.24H (FP) PO SCH (09:56)
[2021-09-18] MEDS: CEFTRIAXONE 1 GM in DEXTROSE 5%-WATER - 50 ML IVPB SCH (09:57)
[2021-09-18] MEDS: ASPIRIN 81 MG CHEWABLE TABLETS PO SCH (09:57)
[2021-09-18] MEDS: OLANZapine 2.5 MG TABLET PO SCH (21:21)
[2021-09-18] MEDS: ATORVASTATIN CA 40 MG TABLET (FP) PO SCH (21:21)
[2021-09-19] MEDS ORDERED: ACETAMINOPHEN 650 MG/20.3 ML ORAL SOLUTION (CUPS) PO ONE (04:04)
[2021-09-19] MEDS ORDERED: ACETAMINOPHEN 1000 MG/100 ML BAG IVPB ONE (04:10)
[2021-09-19] MEDS: SODIUM CHLORIDE 0.45% 1,000 ML IV SCH ×2 (05:25→20:00)
[2021-09-19] MEDS: HEPARIN NA (PORCINE) 5,000 UNITS/ML 1ML VIAL SQ SCH ×3 (05:26→21:27)
[2021-09-19] MEDS: INSULIN (LEVEMIR) 100 UNITS/ML UNITS SQ SCH (06:06)
[2021-09-19] MEDS: INSULIN SLIDING SCALE (NOVOLOG) 1 VIAL SQ SCH ×4 (06:06→21:52)
[2021-09-19 08:08] LABS: BLOOD UREA NITROGEN 18.9 mg/dL (7-18)
[2021-09-19 08:11] LABS: CREATININE 0.9 mg/dL (0.55-1.3)
[2021-09-19 08:12] LABS: BILIRUBIN,TOTAL 0.6 mg/dL (0.2-1); TOT PROT 5.3 g/dl (6.4-8.2)
[2021-09-19 09:29] LABS: BASO % 0.5 % (0-2.0); HEMATOCRIT 27.9 % (32.4-45.2); HEMOGLOBIN 9.4 GM/dL (10.7-15.3); LYMPH % 23.7 % (8-40); MCH 25.9 pg (25.7-33.7); MCHC 33.5 g/dl (32.0-36.0); MEAN CELL VOLUME 77.4 fl (80-96); MEAN PLT VOLUME 10.3 fl (7.5-11.1); MONO % 9.2 % (3.8-10.2); NEUT % 65.6 % (42.8-82.8); PLATELET COUNT 196 10^3/uL (134-434); RBC 3.61 M/mm3 (3.60-5.2); WHITE BLOOD COUNT 12.6 K/mm3 (4.0-10.0)
[2021-09-19] MEDS ORDERED: DEXTROSE 5%-WATER - 50 ML IVPB ONE ×3 (09:34→17:37)
[2021-09-19] MEDS ORDERED: cefTRIAXone SODIUM 1 GM VIAL ONE (09:34)
[2021-09-19] MEDS: CEFTRIAXONE 1 GM in DEXTROSE 5%-WATER - 50 ML IVPB SCH (09:52)
[2021-09-19] MEDS: metoPROLOL SUCCINATE 25 MG TAB.SR.24H (FP) PO SCH (09:53)
[2021-09-19] MEDS: ASPIRIN 81 MG CHEWABLE TABLETS PO SCH (10:00)
[2021-09-19] MEDS ORDERED: DEXTROSE 50%-WATER - 25 GM/50 ML VIAL ONE (11:37)
[2021-09-19] MEDS ORDERED: SODIUM CHLORIDE 0.45% 1,000 ML IV SCH (12:20)
[2021-09-19] MEDS ORDERED: PIPERACILLIN/TAZOBACTAM 3.375 GM VIAL IVPB ONE ×2 (13:21→17:36)
[2021-09-19] MEDS: PIPERACILLIN/TAZOB 3.375 GM 3.375 GM in DEXTROSE 5%-WATER - 50 ML IVPB SCH ×2 (13:39→17:41)
[2021-09-19] MEDS: AMINO ACIDS 4.25%/D5W 1,000 ML IV SCH (17:00)
[2021-09-19] MEDS: ATORVASTATIN CA 40 MG TABLET (FP) PO SCH (21:27)
[2021-09-19] MEDS: OLANZapine 2.5 MG TABLET PO SCH (21:27)
[2021-09-19] MEDS ORDERED: INSULIN SLIDING SCALE (NOVOLOG) 1 VIAL SQ SCH (22:00)
[2021-09-20] MEDS ORDERED: PIPERACILLIN/TAZOBACTAM 3.375 GM VIAL IVPB ONE ×3 (01:42→18:15)
[2021-09-20] MEDS ORDERED: DEXTROSE 5%-WATER - 50 ML IVPB ONE ×3 (01:42→18:15)
[2021-09-20] MEDS: PIPERACILLIN/TAZOB 3.375 GM 3.375 GM in DEXTROSE 5%-WATER - 50 ML IVPB SCH ×3 (02:23→18:47)
[2021-09-20 03:09] LABS: EPI CELLS 26 /uL (0-25.1); HYALINE CASTS 1 /uL (0-3.1); URINE APPEARANCE CLEAR; URINE BACTERIA 51 /uL (0-1359); URINE BILIRUBIN NEGATIVE (NEGATIVE); URINE COLOR YELLOW; URINE GLUCOSE (UA) NEGATIVE (NEGATIVE); URINE KETONE NEGATIVE (NEGATIVE); URINE LEUK ESTERASE 2+ (NEGATIVE); URINE NITRITE NEGATIVE (NEGATIVE); URINE PROTEIN NEGATIVE (NEGATIVE); URINE UROBILINOGEN 0.2 mg/dL (0.2-1.0); URINE WBC 233 /uL (0-25.8)
[2021-09-20] MEDS: INSULIN SLIDING SCALE (NOVOLOG) 1 VIAL SQ SCH ×4 (06:33→22:07)
[2021-09-20] MEDS: HEPARIN NA (PORCINE) 5,000 UNITS/ML 1ML VIAL SQ SCH ×3 (06:36→21:51)
[2021-09-20 07:11] LABS: BASO % 0.9 % (0-2.0); EOS % 2.8 % (0-4.5); HEMOGLOBIN 8.8 GM/dL (10.7-15.3); LYMPH % 28.1 % (8-40); MCH 25.9 pg (25.7-33.7); MCHC 32.8 g/dl (32.0-36.0); MEAN CELL VOLUME 79.1 fl (80-96); MEAN PLT VOLUME 10.5 fl (7.5-11.1); MONO % 10.1 % (3.8-10.2); NEUT % 58.1 % (42.8-82.8); PLATELET COUNT 178 10^3/uL (134-434); RBC 3.41 M/mm3 (3.60-5.2); RDW 14.2 % (11.6-15.6); WHITE BLOOD COUNT 7.3 K/mm3 (4.0-10.0)
[2021-09-20 07:30] LABS: ALBUMIN 1.8 g/dl (3.4-5.0); CALCIUM 8.2 mg/dL (8.5-10.1)
[2021-09-20 07:31] LABS: BLOOD UREA NITROGEN 20.7 mg/dL (7-18)
[2021-09-20 07:35] LABS: BILIRUBIN,TOTAL 0.5 mg/dL (0.2-1); TOT PROT 4.9 g/dl (6.4-8.2)
[2021-09-20 09:47] LABS: URINE RBC 27.8 /uL (0-23.9)
[2021-09-20 09:48] LABS: YEAST MODERATE (NEGATIVE)
[2021-09-20] MEDS: metoPROLOL SUCCINATE 25 MG TAB.SR.24H (FP) PO SCH (09:58)
[2021-09-20] MEDS: ASPIRIN 81 MG CHEWABLE TABLETS PO SCH (09:58)
[2021-09-20] MEDS: AMINO ACIDS 4.25%/D5W 1,000 ML IV SCH (17:08)
[2021-09-20] MEDS: ATORVASTATIN CA 40 MG TABLET (FP) PO SCH (21:50)
[2021-09-20] MEDS: OLANZapine 2.5 MG TABLET PO SCH (21:50)
[2021-09-21] MEDS ORDERED: PIPERACILLIN/TAZOBACTAM 3.375 GM VIAL IVPB ONE ×3 (02:32→17:29)
[2021-09-21] MEDS ORDERED: DEXTROSE 5%-WATER - 50 ML IVPB ONE ×3 (02:33→17:29)
[2021-09-21] MEDS: PIPERACILLIN/TAZOB 3.375 GM 3.375 GM in DEXTROSE 5%-WATER - 50 ML IVPB SCH ×3 (02:43→17:33)
[2021-09-21] MEDS: INSULIN SLIDING SCALE (NOVOLOG) 1 VIAL SQ SCH ×4 (06:07→21:10)
[2021-09-21] MEDS: HEPARIN NA (PORCINE) 5,000 UNITS/ML 1ML VIAL SQ SCH ×3 (06:07→21:30)
[2021-09-21 07:26] LABS: BASO % 0.7 % (0-2.0); EOS % 2.9 % (0-4.5); HEMATOCRIT 24.8 % (32.4-45.2); HEMOGLOBIN 8.3 GM/dL (10.7-15.3); LYMPH % 34.1 % (8-40); MCH 26.1 pg (25.7-33.7); MCHC 33.5 g/dl (32.0-36.0); MEAN CELL VOLUME 77.9 fl (80-96); MEAN PLT VOLUME 10.3 fl (7.5-11.1); MONO % 10.2 % (3.8-10.2); NEUT % 52.1 % (42.8-82.8); PLATELET COUNT 208 10^3/uL (134-434); RBC 3.19 M/mm3 (3.60-5.2); RDW 13.8 % (11.6-15.6); WHITE BLOOD COUNT 6.4 K/mm3 (4.0-10.0)
[2021-09-21 07:42] LABS: CALCIUM 7.8 mg/dL (8.5-10.1)
[2021-09-21 07:43] LABS: ALBUMIN 1.8 g/dl (3.4-5.0); BLOOD UREA NITROGEN 22.9 mg/dL (7-18); MAGNESIUM 1.8 mg/dL (1.8-2.4)
[2021-09-21 07:47] LABS: BILIRUBIN,TOTAL 0.3 mg/dL (0.2-1); TOT PROT 4.8 g/dl (6.4-8.2)
[2021-09-21] MEDS: ASPIRIN 81 MG CHEWABLE TABLETS PO SCH (10:51)
[2021-09-21] MEDS: metoPROLOL SUCCINATE 25 MG TAB.SR.24H (FP) PO SCH (10:51)
[2021-09-21] MEDS ORDERED: NAPH,MB-DB/K PH,MBDB POWDER PACKET PO ONE (11:36)
[2021-09-21] MEDS: ACETAMINOPHEN 325 MG TABLET (FP) PO PRN (19:49)
[2021-09-21] MEDS: AMINO ACIDS 4.25%/D5W 1,000 ML IV SCH (20:01)
[2021-09-21] MEDS: OLANZapine 2.5 MG TABLET PO SCH (21:07)
[2021-09-21] MEDS: ATORVASTATIN CA 40 MG TABLET (FP) PO SCH (21:07)
[2021-09-22] MEDS ORDERED: PIPERACILLIN/TAZOBACTAM 3.375 GM VIAL IVPB ONE ×3 (01:01→17:20)
[2021-09-22] MEDS ORDERED: DEXTROSE 5%-WATER - 50 ML IVPB ONE ×3 (01:02→17:20)
[2021-09-22] MEDS: PIPERACILLIN/TAZOB 3.375 GM 3.375 GM in DEXTROSE 5%-WATER - 50 ML IVPB SCH ×3 (01:06→17:46)
[2021-09-22] MEDS: HEPARIN NA (PORCINE) 5,000 UNITS/ML 1ML VIAL SQ SCH ×3 (06:35→21:48)
[2021-09-22] MEDS: INSULIN SLIDING SCALE (NOVOLOG) 1 VIAL SQ SCH ×4 (06:36→21:48)
[2021-09-22 07:57] LABS: ALBUMIN 2.1 g/dl (3.4-5.0); CALCIUM 8.5 mg/dL (8.5-10.1)
[2021-09-22 07:58] LABS: BLOOD UREA NITROGEN 22.3 mg/dL (7-18)
[2021-09-22 08:00] LABS: BASO % 0.8 % (0-2.0); EOS % 3.1 % (0-4.5); HEMATOCRIT 26.3 % (32.4-45.2); HEMOGLOBIN 8.7 GM/dL (10.7-15.3); LYMPH % 34.4 % (8-40); MCHC 33.1 g/dl (32.0-36.0); MEAN CELL VOLUME 78.5 fl (80-96); MONO % 10.9 % (3.8-10.2); NEUT % 50.8 % (42.8-82.8); PHOSPHOROUS 2.4 mg/dL (2.5-4.9); PLATELET COUNT 253 10^3/uL (134-434); RBC 3.35 M/mm3 (3.60-5.2); WHITE BLOOD COUNT 6.1 K/mm3 (4.0-10.0)
[2021-09-22 08:02] LABS: BILIRUBIN,TOTAL 0.3 mg/dL (0.2-1); TOT PROT 5.4 g/dl (6.4-8.2)
[2021-09-22] MEDS: ASPIRIN 81 MG CHEWABLE TABLETS PO SCH (09:02)
[2021-09-22] MEDS: metoPROLOL SUCCINATE 25 MG TAB.SR.24H (FP) PO SCH (09:02)
[2021-09-22] MEDS: AMINO ACIDS 4.25%/D5W 1,000 ML IV SCH (16:15)
[2021-09-22] MEDS ORDERED: ATORVASTATIN CA 20 MG TABLET (FP) ONE (21:43)
[2021-09-22] MEDS: ATORVASTATIN CA 40 MG TABLET (FP) PO SCH (21:48)
[2021-09-22] MEDS: OLANZapine 2.5 MG TABLET PO SCH (21:49)
[2021-09-23] MEDS ORDERED: DEXTROSE 5%-WATER - 50 ML IVPB ONE ×2 (01:43→09:19)
[2021-09-23] MEDS ORDERED: PIPERACILLIN/TAZOBACTAM 3.375 GM VIAL IVPB ONE ×2 (01:43→09:19)
[2021-09-23] MEDS: PIPERACILLIN/TAZOB 3.375 GM 3.375 GM in DEXTROSE 5%-WATER - 50 ML IVPB SCH ×2 (01:54→09:49)
[2021-09-23] MEDS: HEPARIN NA (PORCINE) 5,000 UNITS/ML 1ML VIAL SQ SCH ×3 (06:21→22:38)
[2021-09-23] MEDS: INSULIN SLIDING SCALE (NOVOLOG) 1 VIAL SQ SCH ×4 (06:22→22:38)
[2021-09-23 07:41] LABS: EOS % 3.3 % (0-4.5); HEMATOCRIT 26.9 % (32.4-45.2); LYMPH % 30.4 % (8-40); MCH 26.1 pg (25.7-33.7); MCHC 33.2 g/dl (32.0-36.0); MEAN CELL VOLUME 78.5 fl (80-96); MEAN PLT VOLUME 9.2 fl (7.5-11.1); MONO % 9.1 % (3.8-10.2); NEUT % 56.2 % (42.8-82.8); PLATELET COUNT 284 10^3/uL (134-434); RBC 3.43 M/mm3 (3.60-5.2); RDW 14.3 % (11.6-15.6)
[2021-09-23 08:00] LABS: BLOOD UREA NITROGEN 18.6 mg/dL (7-18); CALCIUM 7.8 mg/dL (8.5-10.1)
[2021-09-23 08:03] LABS: CREATININE 0.9 mg/dL (0.55-1.3)
[2021-09-23 08:04] LABS: TOT PROT 5.4 g/dl (6.4-8.2)
[2021-09-23 08:05] LABS: BILIRUBIN,TOTAL 0.3 mg/dL (0.2-1)
[2021-09-23] MEDS: metoPROLOL SUCCINATE 25 MG TAB.SR.24H (FP) PO SCH (09:48)
[2021-09-23] MEDS: ASPIRIN 81 MG CHEWABLE TABLETS PO SCH (09:48)
[2021-09-23] MEDS: ACETAMINOPHEN 325 MG TABLET (FP) PO PRN (10:05)
[2021-09-23] MEDS: AMINO ACIDS 4.25%/D5W 1,000 ML IV SCH (17:30)
[2021-09-23] MEDS ORDERED: INSULIN (NOVOLOG) ASPART 100 UNITS/ML 10ML VIAL ONE (21:36)
[2021-09-23] MEDS: OLANZapine 2.5 MG TABLET PO SCH (22:38)
[2021-09-23] MEDS: ATORVASTATIN CA 40 MG TABLET (FP) PO SCH (22:38)
[2021-09-24] MEDS: INSULIN SLIDING SCALE (NOVOLOG) 1 VIAL SQ SCH ×4 (06:07→21:40)
[2021-09-24] MEDS: HEPARIN NA (PORCINE) 5,000 UNITS/ML 1ML VIAL SQ SCH ×3 (06:07→21:33)
[2021-09-24 08:24] LABS: BASO % 0.8 % (0-2.0); EOS % 3.2 % (0-4.5); HEMATOCRIT 25.5 % (32.4-45.2); HEMOGLOBIN 8.6 GM/dL (10.7-15.3); LYMPH % 35.7 % (8-40); MCH 26.2 pg (25.7-33.7); MCHC 33.7 g/dl (32.0-36.0); MEAN CELL VOLUME 77.8 fl (80-96); MEAN PLT VOLUME 8.9 fl (7.5-11.1); MONO % 8.2 % (3.8-10.2); NEUT % 52.1 % (42.8-82.8); PLATELET COUNT 298 10^3/uL (134-434); RBC 3.28 M/mm3 (3.60-5.2); RDW 14.6 % (11.6-15.6); WHITE BLOOD COUNT 6.8 K/mm3 (4.0-10.0)
[2021-09-24 08:45] LABS: BILIRUBIN,TOTAL 0.1 mg/dL (0.2-1); BLOOD UREA NITROGEN 23.3 mg/dL (7-18); CALCIUM 8.3 mg/dL (8.5-10.1); TOT PROT 5.2 g/dl (6.4-8.2)
[2021-09-24] MEDS: INSULIN (LEVEMIR) 100 UNITS/ML UNITS SQ SCH ×2 (09:35→21:38)
[2021-09-24] MEDS: ASPIRIN 81 MG CHEWABLE TABLETS PO SCH (09:36)
[2021-09-24] MEDS: metoPROLOL SUCCINATE 25 MG TAB.SR.24H (FP) PO SCH (09:36)
[2021-09-24] MEDS ORDERED: INSULIN (NOVOLOG) ASPART 100 UNITS/ML 10ML VIAL ONE (11:33)
[2021-09-24] MEDS: AMINO ACIDS 4.25%/D5W 1,000 ML IV SCH (16:48)
[2021-09-24] MEDS: ATORVASTATIN CA 40 MG TABLET (FP) PO SCH (21:33)
[2021-09-24] MEDS: OLANZapine 2.5 MG TABLET PO SCH (21:33)
[2021-09-25 06:06] LABS: SARS-CoV-2 NAA Not Detected (Not Detected)
[2021-09-25] MEDS: HEPARIN NA (PORCINE) 5,000 UNITS/ML 1ML VIAL SQ SCH ×2 (06:14→14:57)
[2021-09-25] MEDS: INSULIN (LEVEMIR) 100 UNITS/ML UNITS SQ SCH (06:16)
[2021-09-25] MEDS: INSULIN SLIDING SCALE (NOVOLOG) 1 VIAL SQ SCH ×3 (06:17→16:58)
[2021-09-25] MEDS ORDERED: INSULIN (NOVOLOG) ASPART 100 UNITS/ML 10ML VIAL ONE ×2 (07:37→11:11)
[2021-09-25] MEDS: ASPIRIN 81 MG CHEWABLE TABLETS PO SCH (09:43)
[2021-09-25] MEDS: metoPROLOL SUCCINATE 25 MG TAB.SR.24H (FP) PO SCH (09:43)
[2021-09-25 10:10] LABS: BASO % 0.7 % (0-2.0); EOS % 2.8 % (0-4.5); HEMATOCRIT 26.2 % (32.4-45.2); HEMOGLOBIN 8.6 GM/dL (10.7-15.3); LYMPH % 35.8 % (8-40); MCH 25.9 pg (25.7-33.7); MCHC 32.8 g/dl (32.0-36.0); MEAN PLT VOLUME 9.4 fl (7.5-11.1); MONO % 7.4 % (3.8-10.2); NEUT % 53.3 % (42.8-82.8); PLATELET COUNT 313 10^3/uL (134-434); RBC 3.32 M/mm3 (3.60-5.2); WHITE BLOOD COUNT 8.3 K/mm3 (4.0-10.0)
[2021-09-25 10:31] VITALS: BP 139/70; PULSE 78; TEMP 98
[2021-09-25] MEDS: ACETAMINOPHEN 325 MG TABLET (FP) PO PRN (16:48)
== END 2021-09-25 18:34 | DRG 689 ==
LOC: JER 19:24 → JERBED 20:05 → J4S 09-14 18:25 → J8W 09-23 15:34
PROVIDERS: ADMIT Hospitalist
DX: N39.0 Urinary tract infection, site not specified (principal); G92.8 Other toxic encephalopathy; I24.8 Other forms of acute ischemic heart disease; N17.9 Acute kidney failure, unspecified; E87.0 Hyperosmolality and hypernatremia; R64 Cachexia; I47.1 Supraventricular tachycardia; Z16.12 Extended spectrum beta lactamase (ESBL) resistance; F32.9 Major depressive disorder, single episode, unspecified; E11.65 Type 2 diabetes mellitus with hyperglycemia; E11.22 Type 2 diabetes mellitus with diabetic chronic kidney disease; I12.9 Hypertensive chronic kidney disease with stage 1 through stage 4 chronic kidney disease, or unspecified chronic kidney disease; G30.9 Alzheimer's disease, unspecified; F02.80 Dementia in other diseases classified elsewhere, unspecified severity, without behavioral disturbance, psychotic disturbance, mood disturbance, and anxiety; N18.9 Chronic kidney disease, unspecified; D64.9 Anemia, unspecified; K25.9 Gastric ulcer, unspecified as acute or chronic, without hemorrhage or perforation; I25.10 Atherosclerotic heart disease of native coronary artery without angina pectoris; E78.5 Hyperlipidemia, unspecified; E78.00 Pure hypercholesterolemia, unspecified; B96.1 Klebsiella pneumoniae [K. pneumoniae] as the cause of diseases classified elsewhere; D72.829 Elevated white blood cell count, unspecified; Z68.27 Body mass index [BMI] 27.0-27.9, adult
CPT/HCPCS: 36415; 36600; 70450-TC; 71045-TC-FY; 76775-TC; 80048; 80053; 81003; 82010; 82140; 82803; 82962; 83735; 83930; 84100; 84484; 85025; 85027; 85610; 85730; 87040; 87086; 87186; 93005; 93010; 93306-TC; 97161-GP; 99285-25; C9803; J1644; U0003; U0005